=== PATIENT | male | born 1955 | race Caucasian/White ===

== ENCOUNTER 2016-08-20 18:36 | Inpatient (IN) | payer MEDICARE, MEDICAID ==
[2016-08-20] MEDS ORDERED: NS 0.9% 1000 ML* 1,000 ML IV ONE (19:31)
[2016-08-20] MEDS ORDERED: Thiamine IV* 100 MG, Folic Acid IV* 1 MG, Multiple Vitamin IV ADULT* 10 ML in NS 0.9% 1... IV ONE (19:31)
[2016-08-20] MEDS ORDERED: Diltiazem DRIP* 100 MG/100 ML ADDV.BAG IVPB ONE (19:31)
[2016-08-20 19:45] LABS: Hematocrit 43 % (42-52); Hemoglobin 14.9 g/dl (14.0-18.0); Mean Corpuscular HGB Conc 34 g/dl (31-36); Mean Corpuscular Hemoglobin 32 pg (27-31); Mean Corpuscular Volume 92 fL (80-94); Mean Platelet Volume 9 um3 (7.4-10.4); Red Blood Count 4.72 10^6/ul (4.0-5.4); Red Cell Distribution Width 16 % (10.5-15); White Blood Count 4.9 10^3/ul (3.5-10.8)
[2016-08-20] MEDS ORDERED: QUEtiapine TAB* 25 MG PO ONE (19:58)
[2016-08-20 20:00] LABS: ALT 37 U/L (7-52); AST 46 U/L (13-39); Albumin 3.9 g/dL (3.2-5.2); Alkaline Phosphatase 90 U/L (34-104); Anion Gap 12 mmol/L (2-11); BUN/Creatinine Ratio 18.4 (8-20); Blood Urea Nitrogen 16 mg/dL (6-24); CO2 Carbon Dioxide 21 mmol/L (22-32); Calcium 9.3 mg/dL (8.6-10.3); Chloride 89 mmol/L (101-111); EGFR African American 114.7 (>60); EGFR Non-African American 89.2 (>60); Globulin 3.6 g/dL (2-4); Glucose 86 mg/dL (70-100); Sodium 122 mmol/L (133-145); Total Protein 7.5 g/dL (6.4-8.9)
[2016-08-20 20:01] LABS: Troponin I 0.03 ng/mL (<0.04)
[2016-08-20] MEDS ORDERED: Iohexol 300* (CONTRAST) 10 ML SDV IV ONE (20:02)
[2016-08-20 20:18] LABS: Alcohol < 10 mg/dL (<10); Digoxin 0.9 ng/ml (0.8-2.0)
--- NOTE | 2016-08-20 20:25 | HP ---
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 He states that he has been getting more SOB and fatigued for ~1week. He admits to not being compliant with medications recently. Last Sunday he states he was with friends when he got off the couch, walked to flip a light switch, and then collapsed. There was no convulsions, but the next thing he recalled was waking up back on the couch with an abrasion to the L elbow and a sore spot on his head (references the L parietal area). His SOB continued to worsen and yesterday he began developing continuous, non-exertional, non-radiation chest tightness/pressure w/o N/V, palpitations, or light-headedness. He has begun having a dry cough and during coughing fits reports becoming sweaty. ED work up is significant for AFIB RVR rate in the 120-130s, COPD exacerbation, abrasion L elbow, contusion L chest wall w/ ecchymosis, no hematoma/ICH/ bleeding noted on radiologic work up. The chest pressure is separate from the pain associated with the L chest contusion. 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 PSurgHx porcine MVR cataract extraction pacer placement SocHx: 1-2PPD cigarettes with a >50PYHX, FamHx: positive for HTN, HLD ROS: as above, otherwise reviewed and all were negative Constitutional: NAD, normally developed, well-nourished white male older appearing than his stated age vitals: Vital Signs Temp 37.2 C 08/20/16 18:46 Pulse 114 08/20/16 21:06 Resp 18 08/20/16 21:40 BP 112/83 08/20/16 21:06 Pulse Ox 95 08/20/16 21:06 Intake & Output 08/19/16 08/20/16 08/20/16 23:59 11:59 23:59 Weight 72.575 kg HEENM: atraumatic; sclera/conjunctiva: non-icteric/clear; blephara: normal; hearing: clinically intact; oropharynx: clear, hoarse voice, mucosa moist Neck: soft tissue: non-tender; thyroid: normal Pulmonary: clear to auscultation bilaterally, good aeration, no accessory muscle use CV: RR/RR, normal S1S2, no carotid bruit, no jugular venous distention, 2+ B DP/ PT, no edema Abdominal: soft, non-distended, non-tender, no rebound/guarding/rigidity, normoactive bowel sounds, no hepatosplenomegaly or masses, no costovertebral angle tenderness Musculoskeletal: general: grossly intact; gait: stable Integumental: small L postero-lateral ecchymosis L chest, ~1cm abrasion to L elbow medial epicondyle Neurological Moves extremities x4 spontaneously. Psychiatric orientation: AA&O to PPS affect: calm mood: cooperative eye contact: good content: seems mostly reliable responses: timely insight: fair to poor Testing: Lab Results 08/20/16 08/20/16 08/20/16 Range/Units 19:20 19:20 19:20 WBC 4.9 (3.5-10.8) 10^3/ul RBC 4.72 (4.0-5.4) 10^6/ul Hgb 14.9 (14.0-18.0) g/dl Hct 43 (42-52) % MCV 92 (80-94) fL MCH 32 H (27-31) pg MCHC 34 (31-36) g/dl RDW 16 H (10.5-15) % Plt Count 134 L (150-450) 10^3/ul MPV 9 (7.4-10.4) um3 Neut % (Auto) 63.4 (38-83) % Lymph % (Auto) 16.7 L (25-47) % [place] % (Auto) 17.7 H (1-9) % Eos % (Auto) 0.6 (0-6) % Baso % (Auto) 1.6 (0-2) % Absolute Neuts (auto) 3.1 (1.5-7.7) 10^3/ul Absolute Lymphs (auto) 0.8 L (1.0-4.8) 10^3/ul Absolute Monos (auto) 0.9 H (0-0.8) 10^3/ul Absolute Eos (auto) 0 (0-0.6) 10^3/ul Absolute Basos (auto) 0.1 (0-0.2) 10^3/ul Absolute Nucleated RBC 0.01 10^3/ul Nucleated RBC % 0.2 INR (Anticoag Therapy) (0.89-1.11) Sodium 122 L (133-145) mmol/L Potassium 4.0 (3.5-5.0) mmol/L Chloride 89 L (101-111) mmol/L Carbon Dioxide 21 L (22-32) mmol/L Anion Gap 12 H (2-11) mmol/L BUN 16 (6-24) mg/dL Creatinine 0.87 (0.67-1.17) mg/dL Est GFR ( Amer) 114.7 (>60) Est GFR (Non-Af Amer) 89.2 (>60) BUN/Creatinine Ratio 18.4 (8-20) Glucose 86 (70-100) mg/dL Lactic Acid 1.1 (0.5-2.0) mmol/L Calcium 9.3 (8.6-10.3) mg/dL Total Bilirubin 1.00 (0.2-1.0) mg/dL AST 46 H (13-39) U/L ALT 37 (7-52) U/L Alkaline Phosphatase 90 (34-104) U/L Troponin I 0.03 (<0.04) ng/mL B-Natriuretic Peptide ( - 100) pg/mL Total Protein 7.5 (6.4-8.9) g/dL Albumin 3.9 (3.2-5.2) g/dL Globulin 3.6 (2-4) g/dL Albumin/Globulin Ratio 1.1 (1-3) Digoxin 0.9 (0.8-2.0) ng/ml Serum Alcohol < 10 (<10) mg/dL 02/12/17 02/12/17 Range/Units 19:20 19:20 WBC (3.5-10.8) 10^3/ul RBC (4.0-5.4) 10^6/ul Hgb (14.0-18.0) g/dl Hct (42-52) % MCV (80-94) fL MCH (27-31) pg MCHC (31-36) g/dl RDW (10.5-15) % Plt Count (150-450) 10^3/ul MPV (7.4-10.4) um3 Neut % (Auto) (38-83) % Lymph % (Auto) (25-47) % [place] % (Auto) (1-9) % Eos % (Auto) (0-6) % Baso % (Auto) (0-2) % Absolute Neuts (auto) (1.5-7.7) 10^3/ul Absolute Lymphs (auto) (1.0-4.8) 10^3/ul Absolute Monos (auto) (0-0.8) 10^3/ul Absolute Eos (auto) (0-0.6) 10^3/ul Absolute Basos (auto) (0-0.2) 10^3/ul Absolute Nucleated RBC 10^3/ul Nucleated RBC % INR (Anticoag Therapy) 0.91 (0.89-1.11) Sodium (133-145) mmol/L Potassium (3.5-5.0) mmol/L Chloride (101-111) mmol/L Carbon Dioxide (22-32) mmol/L Anion Gap (2-11) mmol/L BUN (6-24) mg/dL Creatinine (0.67-1.17) mg/dL Est GFR ( Amer) (>60) Est GFR (Non-Af Amer) (>60) BUN/Creatinine Ratio (8-20) Glucose (70-100) mg/dL Lactic Acid (0.5-2.0) mmol/L Calcium (8.6-10.3) mg/dL Total Bilirubin (0.2-1.0) mg/dL AST (13-39) U/L ALT (7-52) U/L Alkaline Phosphatase (34-104) U/L Troponin I (<0.04) ng/mL B-Natriuretic Peptide 347 H ( - 100) pg/mL Total Protein (6.4-8.9) g/dL Albumin (3.2-5.2) g/dL Globulin (2-4) g/dL Albumin/Globulin Ratio (1-3) Digoxin (0.8-2.0) ng/ml Serum Alcohol (<10) mg/dL ECG, personally reviewed: AFIB rate 131, no ischemia, similar to ECG dated 02/23 CXR, personally reviewed: IMPRESSION: Peribronchial cuffing could be seen in the setting of bronchitis or other inflammatory lung disease. Otherwise there is no radiographic evidence of acute cardiopulmonary abnormality. CT brain WO, personally reviewed: The ventricles, cisterns and sulci are within normal limits. No significant focal abnormality or mass effect is seen. The mo-white differentiation is adequately maintained. There is no evidence for intracranial hemorrhage. No significant bony abnormality is present. The mastoid air cells are appropriately aerated. There is moderate mucosal thickening the bilateral ethmoid air cells. There is layering fluid density in the dependent right maxillary sinus. CT C-spine WO, personally reviewed: IMPRESSION: 1. No calvarial fracture or acute intracranial hemorrhage. 2. Mild degenerative changes of the cervical spine without acute fracture or dislocation. CT chest/abd/pel, personally reviewed: IMPRESSION: 1. No acute traumatic injury including bony fracture or hemorrhage identified. 2. At the left lower lobe there is a 1.3 cm pulmonary nodule. If prior CT imaging of the chest can be made available direct comparison can be made to comment on chronicity. Otherwise, considering the patient's apparent smoking history, possibility of neoplasm must BE considered. 3. Advanced calcified atherosclerosis of the lower abdominal aorta and bilateral common iliac arteries. There appears to be calcified occlusion of the right common iliac artery. Please correlate to signs and symptoms of pelvic and lower extremity arterial insufficiency. 4. Additional chronic, degenerative and iatrogenic findings described in the body of the report. Additionally, an ~1.3cm calcified nodule at the L diaphragm was discussed w/ radiology who felt it was of a benign etiology. XRY L elbow, personally reviewed: IMPRESSION: Normal radiograph of the left elbow. If the patient's symptoms persist further follow-up imaging is recommended. ECHO 01/2016: Conclusions: Mild concentric left ventricular hypertrophy is observed. The estimated ejection fraction is 55-60%. The right ventricular global systolic function is normal. A bioprosthetic mitral valve is present with good function, trace AI, mean gradient 5.8 mmHg (# 27 [employer] porcine). There is trace tricuspid regurgitation. The patient was in atrial fibrillation throughout the study and study limited but adequate for evaluation. Compared with pre MVR echo of 12/09/15, severe MR has resolved, EF has improved, previously 45-50%. Impression: 61M presenting with COPD exacerbation & AFIB RVR after fall on rivaroxaban related to seizure vs syncope DIAGNOSIS & PLAN Primary COPD exacerbation : albuterol nebs : mometasone/formoterol : tiotropium : IV methylprednisolone : guaifenesin : PO azithromycin : incentive spirometry : supplemental oxygen : smoking cessation advised, moderately motivated : supportive care AFIB RVR : likely at least partially compensatory to his COPD : diltiazem IV for rate control to <120 : continue rivaroxaban chest pain r/o ACS : telemetry : trend troponin : given low suspicion for ACS, recent fall on rivaroxaban, & mild thrombocytopenia will hold full dose aspirin and continue low dose : repeat ECG in AM : if these are negative, would defer further cardiac evaluation to his PCP as an outpatient syncope w/ fall, suspect possibly 2nd seizure : telemetry : patient admits to poor adherence to medications : seizure precautions : continue levetiracetam at 500mg PO BID until reconciled : contine valproic acid once reconciled in AM : IV lorazepam 2mg PRN seizure : check levetiracetam & valproic acid levels : consider neurology consult in AM for further seizures LLL 1.3cm lung nodule : given smoking HX concerning for neoplasm : will need close outpatient f/u, consider PCP to consider outpatient PET/CT Secondary hypoNatremia : chronic, stable : IVFs : monitor periodically bipolar disorder : continue medications once reconciled depression : continue medications once reconciled BLE neuropathy : review medications once reconciled PAOD : continue statin once reconciled : low fat diet Admission Rational: inpatient for management of COPD exacerbation and AFIB/RVR not anticipated to be adequately controlled w/i 48h to allow for discharge. DVTp: rivaroxaban Code Status: full
[2016-08-20] MEDS ORDERED: LORazepam INJ* 2 MG/ML 1 ML VIAL IV PUSH ONE ×2 (20:26)
--- NOTE | 2016-08-20 20:47 | RAD ---
indication: Fall down stairs in patient taking xarelto COMPARISON: CT brain dated February 01, [address] scan of the brain and c-spine was performed without intravenous contrast enhancement. Contiguous axial sections were obtained from the lung apices through the vertex. BRAIN: The ventricles, cisterns and sulci are within normal limits. No significant focal abnormality or mass effect is seen. The mo-white differentiation is adequately maintained. There is no evidence for intracranial hemorrhage. No significant bony abnormality is present. The mastoid air cells are appropriately aerated. There is moderate mucosal thickening the bilateral ethmoid air cells. There is layering fluid density in the dependent right maxillary sinus. C-SPINE: On the sagittal view images the vertebral bodies and facet joints are appropriately aligned. There is no evidence of facet dislocation. Degenerative changes of the cervical spine include loss of intervertebral disc height and mild marginal osteophyte formation most severely affecting C5-C7. There is no prevertebral soft tissue swelling or fluid collection. There is no hyperdense material in the cervical canal to indicate hemorrhage. The visualized musculature and soft tissues are normal. There is no gross lymphadenopathy visualized. Coarse calcification is noted the bilateral carotid bulbs. The visualized portion of the lung apices are clear. IMPRESSION: 1. No calvarial fracture or acute intracranial hemorrhage. 2. Mild degenerative changes of the cervical spine without acute fracture or dislocation.
--- NOTE | 2016-08-20 20:56 | RAD ---
INDICATION: Chest pain COMPARISON: Most recent comparison chest x-rays dated April 18, 2016 TECHNIQUE: Single AP portable view of the chest was obtained. FINDINGS: Image quality is compromised due to the relative inferiority of a portable chest x-ray. Stable postoperative findings include left upper chest cardiac pacemaker with 2 leads overlying the heart, a prostatic aortic valve and sternotomy wires. The heart and mediastinum exhibit normal size and contour. Again seen is the appearance of hyperaeration. There is moderate peribronchial cuffing. Otherwise the lungs are grossly clear. There is no evidence of a large pleural effusion. Visualized bones are normal for the patient's age. IMPRESSION: Peribronchial cuffing could be seen in the setting of bronchitis or other inflammatory lung disease. Otherwise there is no radiographic evidence of acute cardiopulmonary abnormality.
[2016-08-20] MEDS: Mometasone/Formoter 200/5 MDI INH SCH (21:00)
--- NOTE | 2016-08-20 21:08 | RAD ---
INDICATION: Left flank pain and bruising after a fall. Patient takes Xarelto. COMPARISON: None. TECHNIQUE: Multidetector CT images were obtained from the lung apices to the ischial tuberosities with 97 mL Omnipaque 300IV contrast. CHEST: The lungs exhibit diffuse centrilobular emphysematous changes. At the medial aspect of the left lower lobe there is a 1.3 cm pulmonary nodule. Also at the left lung base there is a partially calcified pulmonary nodule of no clinical concern. There are no significant pleural effusions bilaterally. There is a left upper chest cardiac pacemaker with 2 leads in the heart, sternotomy wires and a prostatic mitral valve. There is coarse atherosclerotic calcification at the arch of the aorta and the left greater than right common carotid arteries. Top normal mediastinal lymph nodes include a left of midline paratracheal lymph node measuring 9 mm in short axis diameter and a preaortic lymph node measuring 8 mm in short axis diameter. ABDOMEN \T\ PELVIS: The liver, spleen, pancreas and adrenal glands are grossly normal in appearance. The gallbladder is normal. The kidneys are normal in appearance without focal mass, calcification or signs of hydronephrosis. The small and large bowel are not distended. The appendix is identified in the right lower quadrant (image 58 of 105). Rectosigmoid diverticula are seen but none exhibit acute inflammatory change. There is no gross retroperitoneal or mesenteric lymphadenopathy. The pelvic viscera is normal in appearance. Coarse calcification in the infrarenal abdominal aorta becomes more severe at the bilateral common iliac arteries with likely obliteration of the lumen on the right. The external iliac arteries are diminutive and there is coarse eccentric calcification at the bilateral common femoral arteries. Multilevel degenerative changes of the thoracic and lumbar spine include loss of intervertebral disc height. No acute bony fractures are identified. There are no sinister bone lesions. IMPRESSION: 1. No acute traumatic injury including bony fracture or hemorrhage identified. 2. At the left lower lobe there is a 1.3 cm pulmonary nodule. If prior CT imaging of the chest can be made available direct comparison can be made to comment on chronicity. Otherwise, considering the patient's apparent smoking history, possibility of neoplasm must BE considered. 3. Advanced calcified atherosclerosis of the lower abdominal aorta and bilateral common iliac arteries. There appears to be calcified occlusion of the right common iliac artery. Please correlate to signs and symptoms of pelvic and lower extremity arterial insufficiency. 4. Additional chronic, degenerative and iatrogenic findings described in the body of the report.
--- NOTE | 2016-08-20 21:10 | RAD ---
INDICATION: Left elbow pain and bruising for days after injury COMPARISON: None. TECHNIQUE: 4 views left elbow. REPORT: The visualized bones of the left elbow are well corticated and properly aligned. There is no radiographically apparent fracture or dislocation. There is no radiographic evidence of pathologic joint effusion. IMPRESSION: Normal radiograph of the left elbow. If the patient's symptoms persist further follow-up imaging is recommended.
[2016-08-20] MEDS ORDERED: Acetaminophen TAB* 325 MG PO PRN (22:41)
[2016-08-20] MEDS ORDERED: Nicotine Inhaler* 10 MG AMP INH PRN (22:43)
[2016-08-20] MEDS ORDERED: Melatonin (NF) 3 MG TAB PO PRN (22:43)
[2016-08-20] MEDS ORDERED: Ondansetron INJ* 2 MG/ML VIAL IV PRN (22:43)
[2016-08-20] MEDS ORDERED: methylPREDNISolone 125 MG* 2 ML VIAL IV ONE (22:43)
[2016-08-20] MEDS ORDERED: Aspirin EC Low Dose* 81 MG TAB.EC PO ONE (22:45)
[2016-08-20] MEDS ORDERED: Diltiazem DRIP* 100 MG/100 ML ADDV.BAG IVPB SCH (23:00)
[2016-08-20] MEDS ORDERED: LORazepam INJ* 2 MG/ML 1 ML VIAL IV PRN (23:04)
[2016-08-20 23:20] LABS: Phenytoin < 2.5 mcg/mL (10-20)
[2016-08-20] MEDS ORDERED: Diltiazem IV* 5 MG/ML 5 ML VIAL (for loading dose/IV Push) (25 MG) IV SLOW PU SCH (23:45)
--- NOTE | 2016-08-21 00:02 | ED ---
I, Oh,Sotungqueeniekings, scribed for Rl Cortez MD on 08/20/16 at 1945 . HPI Chest Pain - HPI Summary HPI Summary: This 61 y/o male presents to ED for acute chest tightness since yesterday. Pt also expresses concern for increased frequency of his known seizures and recent fall down the stairs 5 days ago, complaining of bruises on LUE elbow. He denies any fever. He also reports that he recently has been irregular with his drinking and eating and noncompliant with his daily meds, which includes Keppra , Xarelto, digoxin, Cardizem, depakote, Zoloft, and gabapentin. Primary care involves Dr. Reich and Dr. Horton. He lives alone. Prior records reviewed. Admission at January 2016. presents with convulsion and jerking episodes. copmlicated hx of bipolar d/o, EtOH abuse, SIADH seizure d/o, - History of Current Complaint Chief Complaint: EDChestPainROMI Time Seen by Provider: 08/20/16 19:02 Hx Obtained From: Patient, Medical Records Onset/Duration: Started Days Ago, Atraumatic, Still Present Timing: Constant Chest Pain Location: Diffuse Chest Pain Radiates: No Character: Tightness Aggravating Factor(s): Nothing Alleviating Factor(s): Nothing Associated Signs and Symptoms: Positive: Chest Pain - Additional Pertinent History Primary Care Physician: [id number] - Allergy/Home Medications Allergies/Adverse Reactions: Allergies Allergy/AdvReac Type Severity Reaction Status Date / Time No Known Allergies Allergy Verified 02/01/16 08:19 PMH/Surg Hx/FS Hx/Imm Hx Endocrine/Hematology History: Reports: Hx Anticoagulant Therapy Denies: Hx Diabetes, Hx Thyroid Disease Cardiovascular History: Reports: Hx Hypertension, Hx Pacemaker/ICD, Hx Peripheral Vascular Disease, Hx Valvular Heart Disease - Recent valve replacement surgery, Other Cardiovascular Problems/Disorders - Hx Atrial Fibrillation and was treatment with Warfarin which has been d/c'd Respiratory History: Reports: Hx Chronic Bronchitis, Hx Chronic Obstructive Pulmonary Disease (COPD), Other Respiratory Problems/Disorders - poss aspiration Denies: Hx Asthma History: Denies: Hx Renal Disease Musculoskeletal History: Denies: Hx Arthritis, Hx Osteoporosis Sensory History: Reports: Hx Cataracts, Hx Contacts or Glasses Opthamlomology History: Reports: Hx Cataracts, Hx Contacts or Glasses Neurological History: Reports: Hx Seizures, Other Neuro Impairments/Disorders - PERIPHERAL NEUROPATHY Denies: Hx Dementia Psychiatric History: Reports: Hx Anxiety, Hx Eating Disorder, Hx Depression, Hx Panic Disorder, Hx Post Traumatic Stress Disorder, Hx Inpatient Treatment, Hx Community Mental Health Tx, Hx Bipolar Disorder, Hx Suicide Attempt, Hx Substance Abuse, Other Psychiatric Issues/Disorders - has had ECT treatment Denies: Hx Schizophrenia, Hx of Violent Episodes Against Others - Surgical History Surgery Procedure, Year, and Place: cataracts removed. Hx Hernia Repair. AORTIC VALVE REPLACEMENT. PACEMAKER - Immunization History Date of Tetanus Vaccine: PT STATES UNSURE Date of Influenza Vaccine: NONE Infectious Disease History: No Infectious Disease History: Reports: Hx Tuberculosis - hx of inactive TB Denies: Hx Clostridium Difficile, Hx Hepatitis, Hx Human Immunodeficiency Virus (HIV), Hx of Known/Suspected MRSA, Hx Shingles, Hx Known/Suspected VRE, Hx Known/Suspected VRSA, History Other Infectious Disease, Traveled Outside the [place] in Last 30 Days - Family History Known Family History: Positive: Other - Mother -- depression, Father -- EtOH abuse - Social History Lives: Alone Alcohol Use: Daily Alcohol Amount: REPORTS BEER WITH DINNER TONIGHT Hx Substance Use: Yes Substance Use Type: Reports: Marijuana Substance Use Comment - Amount & Last Used: last weekend Hx Tobacco Use: Yes Smoking Status (MU): Heavy Every Day Tobacco Smoker Type: Cigarettes Amount Used/How Often: 1/2 PPD Length of Time of Smoking/Using Tobacco: 40 YRS Have You Smoked in the Last Year: Yes Review of Systems Negative: Fever Positive: Chest Pain Positive: Bruising - LUE elbow Neurological: Other - negative for dizziness Negative: Anxious, Depressed All Other Systems Reviewed And Are Negative: Yes Physical Exam - Summary Physical Exam Summary: General: Comfortable, pleasant, alert HEENT: Moist mucosa Neck: soft, supple, no adenopathy, no edema. No JVD. Heart: S1, S2, HR of 128. Rates regular. no murmurs, rubs, or gallops Lungs: Clear to auscultation, breathing comfortable, Rales on the left. Skin: Bruising left elbow, left flank, and left lateral ribs. Abdominal: Soft, flat, nontender Extremities: FROM at left elbow Positive tenderness at LUE lateral and medial epicondyle. Neuro: Alert and oriented x 3 Psych: Logical, coherent Triage Information Reviewed: Yes Vital Signs On Initial Exam: Initial Vitals Temp Pulse Resp BP Pulse Ox 98.9 F 123 20 142/103 100 08/20/16 18:46 08/20/16 18:46 08/20/16 18:46 08/20/16 18:46 08/20/16 18:46 Vital Signs Reviewed: Yes Diagnostics - Vital Signs Vital Signs Temp Pulse Resp BP Pulse Ox 08/20/16 18:46 98.9 F 123 20 142/103 100 - Laboratory Lab Results: Lab Results 08/20/16 08/20/16 08/20/16 Range/Units 19:20 19:20 19:20 WBC 4.9 (3.5-10.8) 10^3/ul RBC 4.72 (4.0-5.4) 10^6/ul Hgb 14.9 (14.0-18.0) g/dl Hct 43 (42-52) % MCV 92 (80-94) fL MCH 32 H (27-31) pg MCHC 34 (31-36) g/dl RDW 16 H (10.5-15) % Plt Count 134 L (150-450) 10^3/ul MPV 9 (7.4-10.4) um3 Neut % (Auto) 63.4 (38-83) % Lymph % (Auto) 16.7 L (25-47) % Evangeline % (Auto) 17.7 H (1-9) % Eos % (Auto) 0.6 (0-6) % Baso % (Auto) 1.6 (0-2) % Absolute Neuts (auto) 3.1 (1.5-7.7) 10^3/ul Absolute Lymphs (auto) 0.8 L (1.0-4.8) 10^3/ul Absolute Monos (auto) 0.9 H (0-0.8) 10^3/ul Absolute Eos (auto) 0 (0-0.6) 10^3/ul Absolute Basos (auto) 0.1 (0-0.2) 10^3/ul Absolute Nucleated RBC 0.01 10^3/ul Nucleated RBC % 0.2 INR (Anticoag Therapy) (0.89-1.11) Sodium 122 L (133-145) mmol/L Potassium 4.0 (3.5-5.0) mmol/L Chloride 89 L (101-111) mmol/L Carbon Dioxide 21 L (22-32) mmol/L Anion Gap 12 H (2-11) mmol/L BUN 16 (6-24) mg/dL Creatinine 0.87 (0.67-1.17) mg/dL Est GFR ( Amer) 114.7 (>60) Est GFR (Non-Af Amer) 89.2 (>60) BUN/Creatinine Ratio 18.4 (8-20) Glucose 86 (70-100) mg/dL Lactic Acid 1.1 (0.5-2.0) mmol/L Calcium 9.3 (8.6-10.3) mg/dL Total Bilirubin 1.00 (0.2-1.0) mg/dL AST 46 H (13-39) U/L ALT 37 (7-52) U/L Alkaline Phosphatase 90 (34-104) U/L Troponin I 0.03 (<0.04) ng/mL B-Natriuretic Peptide ( - 100) pg/mL Total Protein 7.5 (6.4-8.9) g/dL Albumin 3.9 (3.2-5.2) g/dL Globulin 3.6 (2-4) g/dL Albumin/Globulin Ratio 1.1 (1-3) Digoxin 0.9 (0.8-2.0) ng/ml Phenytoin < 2.5 L (10-20) mcg/mL Valproic Acid 17.0 L (50-100) mcg/mL Serum Alcohol < 10 (<10) mg/dL 08/20/16 08/20/16 Range/Units 19:20 19:20 WBC (3.5-10.8) 10^3/ul RBC (4.0-5.4) 10^6/ul Hgb (14.0-18.0) g/dl Hct (42-52) % MCV (80-94) fL MCH (27-31) pg MCHC (31-36) g/dl RDW (10.5-15) % Plt Count (150-450) 10^3/ul MPV (7.4-10.4) um3 Neut % (Auto) (38-83) % Lymph % (Auto) (25-47) % Evangeline % (Auto) (1-9) % Eos % (Auto) (0-6) % Baso % (Auto) (0-2) % Absolute Neuts (auto) (1.5-7.7) 10^3/ul Absolute Lymphs (auto) (1.0-4.8) 10^3/ul Absolute Monos (auto) (0-0.8) 10^3/ul Absolute Eos (auto) (0-0.6) 10^3/ul Absolute Basos (auto) (0-0.2) 10^3/ul Absolute Nucleated RBC 10^3/ul Nucleated RBC % INR (Anticoag Therapy) 0.91 (0.89-1.11) Sodium (133-145) mmol/L Potassium (3.5-5.0) mmol/L Chloride (101-111) mmol/L Carbon Dioxide (22-32) mmol/L Anion Gap (2-11) mmol/L BUN (6-24) mg/dL Creatinine (0.67-1.17) mg/dL Est GFR ( Amer) (>60) Est GFR (Non-Af Amer) (>60) BUN/Creatinine Ratio (8-20) Glucose (70-100) mg/dL Lactic Acid (0.5-2.0) mmol/L Calcium (8.6-10.3) mg/dL Total Bilirubin (0.2-1.0) mg/dL AST (13-39) U/L ALT (7-52) U/L Alkaline Phosphatase (34-104) U/L Troponin I (<0.04) ng/mL B-Natriuretic Peptide 347 H ( - 100) pg/mL Total Protein (6.4-8.9) g/dL Albumin (3.2-5.2) g/dL Globulin (2-4) g/dL Albumin/Globulin Ratio (1-3) Digoxin (0.8-2.0) ng/ml Phenytoin (10-20) mcg/mL Valproic Acid (50-100) mcg/mL Serum Alcohol (<10) mg/dL Result Diagrams: 08/20/16 19:20 08/20/16 19:20 Lab Statement: Any lab studies that have been ordered have been reviewed, and results considered in the medical decision making process. - Radiology CXR Xray Interpretation: Positive (See Comments) - Peribronchial cuffing could be seen in the setting of bronchitis or other inflammatory lung disease. Otherwise there is no radiographic evidence of acute cardiopulmonary abnormality. Radiology Interpretation Completed By: Radiologist Left Elbow Xray Interpretation: No Acute Changes Radiology Interpretation Completed By: Radiologist - CT CT Brain CT Interpretation: No Acute Changes - 1. No calvarial fracture or acute intracranial hemorrhage. 2. Mild degenerative changes of the cervical spine without acute fracture or dislocation. CT Interpretation Completed By: Radiologist C-spine CT Interpretation: No Acute Changes - 1. No calvarial fracture or acute intracranial hemorrhage. 2. Mild degenerative changes of the cervical spine without acute fracture or dislocation. CT Interpretation Completed By: Radiologist Ab/P/Chest CT Interpretation: Positive (See Comments) - 1. No acute traumatic injury including bony fracture or hemorrhage identified. 2. At the left lower lobe there is a 1.3 cm pulmonary nodule. If prior CT imaging of the chest can be made available direct comparison can be made to comment on chronicity. Otherwise , considering the patient's apparent smoking history, possibility of neoplasm must BE considered. 3. Advanced calcified atherosclerosis of the lower abdominal aorta and bilateral common iliac arteries. There appears to be calcified occlusion of the right common iliac artery. Please correlate to signs and symptoms of pelvic and lower extremity arterial insufficiency. 4. Additional chronic, degenerative and iatrogenic findings described in the body of the report. CT Interpretation Completed By: Radiologist - EKG 1853 Cardiac Rate: Tachycardia - 131 bpm EKG Rhythm: Atrial Fibrillation Chest Pain Course/Dx - Course Assessment/Plan: He has multiple complaints of concerns, which includes tachycardia, recent fall, recent syncope, concerns for possible seizures, and noncompliance to meds. On arrival he complains of bruising of left elbow and left flank. He is on blood thinner. At this point, we are aggressively managing his multiple complaints, but it is prudent to admit this pt. Dr. Macias accepts the pt. CT imaging results are pending. No clinical evidence of sepsis, heart attack, nu, PTX, or obvious servere internal bleeding. - Chest Pain Differential Diagnosis/HQI/PQRI: Acute [place], Angina, Lower Respiratory Infection, Pulmonary Edema, Pulmonary Embolism - Diagnoses Provider Diagnoses: Syncope and collapse, Atrial fibrillation with rapid ventricular response - Provider Notifications Discussed Care Of Patient With: Dr. Macias (Hospitalist) at 2024 PM Time Discussed With Above Provider: 20:25 Instructed by Provider To: Admit As Inpatient - Critical Care Time Critical Care Time: 30-74 min - 60 minutes Discharge - Discharge Plan Condition: Stable Disposition: ADMITTED TO [facility] The documentation as recorded by the Tung fajardo Soohyun accurately reflects the service I personally performed and the decisions made by , Rl Cortez MD.
[2016-08-21] MEDS: Albuterol 2.5 MG/3 ML NEB.SOL* (0.083%) INH SCH ×4 (02:05→20:09)
[2016-08-21] MEDS: NS 0.9% 1000 ML* 1,000 ML IV SCH ×2 (02:29→15:34)
[2016-08-21] MEDS: levETIRAcetam TAB* 500 MG PO SCH ×2 (02:38→08:51)
[2016-08-21] MEDS: Azithromycin TAB* 250 MG PO SCH ×2 (02:38→20:53)
[2016-08-21] MEDS: Omeprazole CAP* 20 MG PO SCH (04:57)
[2016-08-21 06:18] LABS: Hematocrit 43 % (42-52); Hemoglobin 14.5 g/dl (14.0-18.0); Mean Corpuscular HGB Conc 34 g/dl (31-36); Mean Corpuscular Hemoglobin 31 pg (27-31); Mean Corpuscular Volume 92 fL (80-94); Mean Platelet Volume 9 um3 (7.4-10.4); Red Blood Count 4.64 10^6/ul (4.0-5.4); Red Cell Distribution Width 16 % (10.5-15); White Blood Count 3.3 10^3/ul (3.5-10.8)
[2016-08-21 06:24] LABS: Comments Flag Yes
[2016-08-21 06:30] LABS: BUN/Creatinine Ratio 19.1 (8-20); Calcium 8.7 mg/dL (8.6-10.3); EGFR African American 152.5 (>60); EGFR Non-African American 118.6 (>60); HDL Cholesterol 77.7 mg/dL; Potassium 3.9 mmol/L (3.5-5.0)
[2016-08-21 06:33] LABS: Troponin I 0.01 ng/mL (<0.04)
[2016-08-21 07:16] LABS: Benzodiazepine Urine Screen None Detected (None Detect)
[2016-08-21] MEDS: Mometasone/Formoter 200/5 MDI INH SCH ×2 (07:47→20:20)
[2016-08-21] MEDS: Rivaroxaban TAB(*) 20 MG TAB PO SCH (08:51)
[2016-08-21] MEDS: Docusate CAP* 100 MG PO SCH ×2 (08:51→20:54)
[2016-08-21] MEDS: guaiFENesin ER TAB 600 MG PO SCH ×2 (08:51→20:56)
[2016-08-21] MEDS ORDERED: Aspirin EC Low Dose* 81 MG TAB.EC PO SCH (09:00)
[2016-08-21] MEDS ORDERED: methylPREDNISolone SOD 40 MG* 1 ML VIAL IV SCH (09:00)
[2016-08-21] MEDS ORDERED: QUEtiapine TAB* 100 MG PO PRN (15:08)
[2016-08-21] MEDS ORDERED: PROCHLORPERAZINE INJ 5 MG/ML 2 ML VIAL IV PRN (15:09)
--- NOTE | 2016-08-21 15:22 | PN ---
Subjective Date of Service: 08/21/16 Interval History: Patient seen and examined at bedside. He is very sleepy, having received lorazepam overnight. He is arousable though. When asked about chest pain, he states, "My chest never hurt." He is laying flat in bed and denies SOB, though he does report frequent cough. He denies fever/chills, abd pain, n/v. He states , "I just want to sleep." Nursing staff denies any seizure activity noted overnight or this morning. Telemetry: atrial fibrillation, PVCs, 80s-90s Family History: Unchanged from Admission Social History: Unchanged from Admission Past Medical History: Unchanged from Admission Objective Active Medications: Acetaminophen (Tylenol Tab*) 650 mg PO Q6H PRN PRN Reason: FEVER/PAIN Albuterol (Ventolin 2.5 Mg/3 Ml Neb.[place]*) 2.5 mg INH Q2H PRN PRN Reason: SOB/WHEEZING Albuterol (Ventolin 2.5 Mg/3 Ml Neb.[place]*) 2.5 mg INH [id number] AWAKE [facility] Last Admin: 08/21/16 12:43 Dose: 2.5 mg Aspirin (Aspirin Ec Low Dose*) 81 mg PO DAILY [facility] Azithromycin (Zithromax Tab*) 500 mg PO 1999 [facility] Last Admin: 08/21/16 02:38 Dose: 500 mg Digoxin (Lanoxin Tab*) 0.25 mg PO DAILY [facility] Diltiazem HCl (Cardizem Cd Cap*) 120 mg PO DAILY [facility] Diltiazem HCl (Cardizem Tab*) 30 mg PO Q6HR [facility] Stop: 08/22/16 00:01 Divalproex Sodium (Depakote Er Tab(*)) 1,000 mg PO DAILY [facility] Docusate Sodium (Colace Cap*) 200 mg PO BID [facility] Last Admin: 08/21/16 08:51 Dose: 200 mg Gabapentin (Neurontin Cap(*)) 600 mg PO BID [facility] Guaifenesin (Mucinex*) 1,200 mg PO BID [facility] Last Admin: 08/21/16 08:51 Dose: 1,200 mg Sodium Chloride (Ns 0.9% 1000 Ml*) 1,000 mls @ 75 mls/hr IV PER RATE [facility] Last Admin: 08/21/16 02:29 Dose: 75 mls/hr Levetiracetam (Keppra Tab*) 500 mg PO DAILY [facility] Lorazepam (Ativan Inj*) 2 mg IV Q4H PRN PRN Reason: SEIZURES Last Admin: 08/21/16 03:09 Dose: 2 mg Melatonin (Melatonin (Nf)) 3 mg PO BEDTIME PRN; Protocol PRN Reason: Sleep Metoprolol Tartrate (Lopressor Tab*) 25 mg PO BID [facility] Mometasone Furoate/Formoterol Fumar (Dulera 200/5 Mdi*) 2 puff INH BID [facility] Last Admin: 08/21/16 07:47 Dose: Not Given Nicotine (Nicotine Inhaler*) 10 mg INH Q2H PRN PRN Reason: CRAVING Omeprazole (Prilosec Cap*) 20 mg PO DAILY@0600 [facility] Last Admin: 08/21/16 04:57 Dose: 20 mg Prednisone (Deltasone Tab*) 40 mg PO DAILY [facility] Prochlorperazine Edisylate (Compazine Inj*) 5 mg IV Q6H PRN PRN Reason: NAUSEA/VOMITING Quetiapine Fumarate (Seroquel Tab*) 200 mg PO BEDTIME PRN PRN Reason: AGITATION Rivaroxaban (Xarelto(*)) 20 mg PO DAILY [facility] Ropinirole HCl (Requip Tab*) 0.5 mg PO BEDTIME [facility] Sertraline HCl (Zoloft*) 100 mg PO DAILY [facility] Vital Signs 08/20/16 08/20/16 08/20/16 20:57 21:00 21:06 Temperature Pulse Rate 114 Respiratory 22 24 29 Rate Blood Pressure 112/83 (mmHg) O2 Sat by Pulse 95 Oximetry 08/20/16 08/20/16 08/20/16 21:40 22:30 22:50 Temperature 98.2 F Pulse Rate 96 101 Respiratory 18 22 Rate Blood Pressure 139/72 125/75 (mmHg) O2 Sat by Pulse 95 Oximetry 08/20/16 08/20/16 08/20/16 23:05 23:25 23:35 Temperature 98.0 F Pulse Rate 91 97 Respiratory 28 Rate Blood Pressure 130/76 135/89 (mmHg) O2 Sat by Pulse Oximetry 08/20/16 08/21/16 08/21/16 23:40 00:10 00:40 Temperature Pulse Rate 98 91 93 Respiratory Rate Blood Pressure 152/90 148/90 125/84 (mmHg) O2 Sat by Pulse Oximetry 08/21/16 08/21/16 08/21/16 01:10 01:40 02:07 Temperature Pulse Rate 98 91 Respiratory Rate Blood Pressure 125/84 153/93 (mmHg) O2 Sat by Pulse 93 Oximetry 08/21/16 08/21/16 08/21/16 02:40 03:09 03:40 Temperature 97.6 F Pulse Rate 88 95 Respiratory 24 Rate Blood Pressure 125/79 125/79 (mmHg) O2 Sat by Pulse Oximetry 08/21/16 08/21/16 08/21/16 04:09 04:40 05:40 Temperature Pulse Rate 97 96 Respiratory 22 Rate Blood Pressure 130/75 137/86 (mmHg) O2 Sat by Pulse Oximetry 08/21/16 08/21/16 08/21/16 07:45 07:55 08:00 Temperature 96.4 F Pulse Rate 104 95 Respiratory 18 16 Rate Blood Pressure (mmHg) O2 Sat by Pulse 100 94 Oximetry 08/21/16 08/21/16 08/21/16 08:26 11:20 12:44 Temperature 97.0 F Pulse Rate 81 95 Respiratory 18 Rate Blood Pressure (mmHg) O2 Sat by Pulse 97 95 Oximetry Oxygen Devices in Use Now: None Appearance: Male patient, lying in bed, drowsy, in NAD Eyes: PERRLA Ears/Nose/Mouth/Throat: Clear Oropharnyx, Mucous Membranes Moist Neck: NL Appearance and Movements; NL JVP Respiratory: Symmetrical Chest Expansion and Respiratory Effort, Clear to Auscultation - coarse breath sounds, scattered rhonchi Cardiovascular: - - irregularly irregular rate/rhythm Abdominal: NL Sounds; No Tenderness; No Distention Extremities: No Edema Skin: - - ecchymosis to left chest, left elbow abrasion Neurological: - - drowsy but oriented x 3 Lines/Tubes/Other Access: Clean, Dry and Intact Peripheral IV Nutrition: Taking PO's Result Diagrams: 08/21/16 05:59 08/21/16 05:59 Additional Lab and Data: Lab Results 08/20/16 08/20/16 08/20/16 Range/Units 19:20 19:20 19:20 WBC 4.9 (3.5-10.8) 10^3/ul RBC 4.72 (4.0-5.4) 10^6/ul Hgb 14.9 (14.0-18.0) g/dl Hct 43 (42-52) % MCV 92 (80-94) fL MCH 32 H (27-31) pg MCHC 34 (31-36) g/dl RDW 16 H (10.5-15) % Plt Count 134 L (150-450) 10^3/ul MPV 9 (7.4-10.4) um3 Neut % (Auto) 63.4 (38-83) % Lymph % (Auto) 16.7 L (25-47) % [place]lin % (Auto) 17.7 H (1-9) % Eos % (Auto) 0.6 (0-6) % Baso % (Auto) 1.6 (0-2) % Absolute Neuts (auto) 3.1 (1.5-7.7) 10^3/ul Absolute Lymphs (auto) 0.8 L (1.0-4.8) 10^3/ul Absolute Monos (auto) 0.9 H (0-0.8) 10^3/ul Absolute Eos (auto) 0 (0-0.6) 10^3/ul Absolute Basos (auto) 0.1 (0-0.2) 10^3/ul Absolute Nucleated RBC 0.01 10^3/ul Nucleated RBC % 0.2 INR (Anticoag Therapy) (0.89-1.11) Sodium 122 L (133-145) mmol/L Potassium 4.0 (3.5-5.0) mmol/L Chloride 89 L (101-111) mmol/L Carbon Dioxide 21 L (22-32) mmol/L Anion Gap 12 H (2-11) mmol/L BUN 16 (6-24) mg/dL Creatinine 0.87 (0.67-1.17) mg/dL Est GFR ( Amer) 114.7 (>60) Est GFR (Non-Af Amer) 89.2 (>60) BUN/Creatinine Ratio 18.4 (8-20) Glucose 86 (70-100) mg/dL Lactic Acid 1.1 (0.5-2.0) mmol/L Calcium 9.3 (8.6-10.3) mg/dL Total Bilirubin 1.00 (0.2-1.0) mg/dL AST 46 H (13-39) U/L ALT 37 (7-52) U/L Alkaline Phosphatase 90 (34-104) U/L Troponin I 0.03 (<0.04) ng/mL B-Natriuretic Peptide ( - 100) pg/mL Total Protein 7.5 (6.4-8.9) g/dL Albumin 3.9 (3.2-5.2) g/dL Globulin 3.6 (2-4) g/dL Albumin/Globulin Ratio 1.1 (1-3) Digoxin 0.9 (0.8-2.0) ng/ml Phenytoin < 2.5 L (10-20) mcg/mL Valproic Acid 17.0 L (50-100) mcg/mL Serum Alcohol < 10 (<10) mg/dL 08/20/16 08/20/16 Range/Units 19:20 19:20 WBC (3.5-10.8) 10^3/ul RBC (4.0-5.4) 10^6/ul Hgb (14.0-18.0) g/dl Hct (42-52) % MCV (80-94) fL MCH (27-31) pg MCHC (31-36) g/dl RDW (10.5-15) % Plt Count (150-450) 10^3/ul MPV (7.4-10.4) um3 Neut % (Auto) (38-83) % Lymph % (Auto) (25-47) % [place] % (Auto) (1-9) % Eos % (Auto) (0-6) % Baso % (Auto) (0-2) % Absolute Neuts (auto) (1.5-7.7) 10^3/ul Absolute Lymphs (auto) (1.0-4.8) 10^3/ul Absolute Monos (auto) (0-0.8) 10^3/ul Absolute Eos (auto) (0-0.6) 10^3/ul Absolute Basos (auto) (0-0.2) 10^3/ul Absolute Nucleated RBC 10^3/ul Nucleated RBC % INR (Anticoag Therapy) 0.91 (0.89-1.11) Sodium (133-145) mmol/L Potassium (3.5-5.0) mmol/L Chloride (101-111) mmol/L Carbon Dioxide (22-32) mmol/L Anion Gap (2-11) mmol/L BUN (6-24) mg/dL Creatinine (0.67-1.17) mg/dL Est GFR ( Amer) (>60) Est GFR (Non-Af Amer) (>60) BUN/Creatinine Ratio (8-20) Glucose (70-100) mg/dL Lactic Acid (0.5-2.0) mmol/L Calcium (8.6-10.3) mg/dL Total Bilirubin (0.2-1.0) mg/dL AST (13-39) U/L ALT (7-52) U/L Alkaline Phosphatase (34-104) U/L Troponin I (<0.04) ng/mL B-Natriuretic Peptide 347 H ( - 100) pg/mL Total Protein (6.4-8.9) g/dL Albumin (3.2-5.2) g/dL Globulin (2-4) g/dL Albumin/Globulin Ratio (1-3) Digoxin (0.8-2.0) ng/ml Phenytoin (10-20) mcg/mL Valproic Acid (50-100) mcg/mL Serum Alcohol (<10) mg/dL Microbiology and Other Data: Microbiology 08/20/16 23:50 Influenza Types A,B Antigen (BRANDI) - Final Nasal Specimen received for Influenza A/B Molecular testing Assess/Plan/Problems-Billing Assessment: Mr. 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 - Patient Problems (1) Syncope Code(s): R55 - SYNCOPE AND COLLAPSE Comment: Question of syncope vs seizure, as patient reports non-adherence to medication regimen. Unable to obtain baseline for patient at this time, as he had lorazepam earlier. Pacer interrogation ordered to assess for other arrhythmias. PT/OT consult to evaluate safety at home, as patient lives by himself. (2) Chest pain Code(s): R07.9 - CHEST PAIN, UNSPECIFIED Comment: Patient now denies CP or pressure. Troponins flat, EKG with no significant ST or T wave changes. EKG similar in comparison to previous EKGs. Suspect secondary to afib with RVR, COPD exacerbation. Patient should pursue outpatient stress test with PCP. (3) Atrial fibrillation with rapid ventricular response Code(s): I48.91 - UNSPECIFIED ATRIAL FIBRILLATION Comment: Likely secondary to medication non-adherence, now controlled on diltiazem gtt. Discontinue diltiazem gtt and restart home digoxin, cardizem CD (to start 08/22) , and metoprolol. Continue to monitor on telemetry. (4) COPD (chronic obstructive pulmonary disease) Code(s): J44.9 - CHRONIC OBSTRUCTIVE PULMONARY DISEASE, UNSPECIFIED Comment: With mild to moderate exacerbation. Patient not requiring supplemental O2. Questionable adherence to home medications. Continue prn nebulizers, azithromycin, steroids, inhalers. (5) Seizure disorder Code(s): G40.909 - EPILEPSY, UNSP, NOT INTRACTABLE, WITHOUT STATUS EPILEPTICUS Comment: ? seizure activity at home due to medication non-adherence Valproic acid level subtherapeutic, Keppra level pending. Restart valproic acid and Keppra per home dosing guidelines. Continue seizure precautions. (6) HTN (hypertension) Code(s): I10 - ESSENTIAL (PRIMARY) HYPERTENSION Comment: BP is under good control. Continue current medication regimen. (7) Hypnic jerks Code(s): F51.8 - OTH SLEEP DISORD NOT DUE TO A SUB OR KNOWN PHYSIOL COND Comment: Patient denies at this time. Continue ropinirole. (8) Bipolar disorder Comment: Continue home medication regimen. Continue prn Seroquel, per the med rec. (9) History of peripheral neuropathy Code(s): Z86.69 - PERSONAL HISTORY OF DIS OF THE NERVOUS SYS AND SENSE ORGANS Comment: Continue gabapentin. (10) DVT prophylaxis Code(s): MMZ2945 - Comment: Stalin (11) Full code status Code(s): Z78.9 - OTHER SPECIFIED HEALTH STATUS Status and Disposition: Inpatient admission. Anticipate LOS >2 days. Plan to allow lorazepam to wear off and limit benzodiazepine use; PT/OT consults ordered to evaluate safety at home prior to d/c.
[2016-08-21] MEDS: Divalproex ER TAB(*) 500 MG PO SCH (16:41)
[2016-08-21] MEDS: Digoxin TAB* 0.25 MG PO SCH (16:42)
[2016-08-21] MEDS: Sertraline* 100 MG TAB PO SCH (16:44)
[2016-08-21] MEDS: Albuterol 2.5 MG/3 ML NEB.SOL* (0.083%) INH PRN (17:00)
[2016-08-21] MEDS: Diltiazem TAB* 30 MG PO SCH (18:22)
[2016-08-21] MEDS: Gabapentin CAP(*) 300 MG PO SCH (20:54)
[2016-08-21] MEDS: Ropinirole TAB* 0.5 MG TAB PO SCH (20:57)
[2016-08-21] MEDS: Metoprolol Tartrate TAB* 25 MG PO SCH (20:59)
--- NOTE | 2016-08-21 21:11 | PN ---
Hospitalist Progress Note SUPERVISOR [employer]SEM[employer] called to bedside, as patient was awake and very concerned about his medications. He states that he was taken off of his metoprolol and started on Digoxin. He also denies taking Requip and states that he has not had any issues with leg jerks in several months. He also denies use of Seroquel, stating it can make him very manic and agitated. He specifically asked for more lorazepam; however, I did express concern over his oversedation today after receiving a dose last evening for anxiety. He states that he does not sleep much and that it works the best. He was open to taking Ambien, stating, "I've taken that before and it does okay." We discussed sleep hygiene and went over his medications. The patient accepted his other psychiatric meds, as well as his cardizem and digoxin and seizure medications. Patient advised that we would closely monitor his VS and condition and that new medications might be warranted. He is in agreement with this plan. Patient is currently alert and oriented and cooperative with staff.
[2016-08-21] MEDS: Zolpidem TAB* 10 MG PO PRN (21:20)
[2016-08-22] MEDS: Diltiazem TAB* 30 MG PO SCH (00:10)
[2016-08-22] MEDS: Albuterol 2.5 MG/3 ML NEB.SOL* (0.083%) INH SCH ×4 (00:56→19:26)
[2016-08-22] MEDS: Albuterol 2.5 MG/3 ML NEB.SOL* (0.083%) INH PRN ×2 (04:47→10:29)
[2016-08-22] MEDS: Omeprazole CAP* 20 MG PO SCH (05:05)
[2016-08-22] MEDS: Benzonatate CAP* 100 MG PO PRN ×2 (05:05→20:12)
[2016-08-22 05:06] LABS: Hematocrit 39 % (42-52); Hemoglobin 13.2 g/dl (14.0-18.0); Mean Corpuscular HGB Conc 34 g/dl (31-36); Mean Corpuscular Hemoglobin 31 pg (27-31); Mean Corpuscular Volume 93 fL (80-94); Mean Platelet Volume 9 um3 (7.4-10.4); Red Cell Distribution Width 16 % (10.5-15); White Blood Count 7.4 10^3/ul (3.5-10.8)
[2016-08-22 05:17] LABS: BUN/Creatinine Ratio 21.9 (8-20); Calcium 8.7 mg/dL (8.6-10.3); EGFR African American 140.5 (>60); EGFR Non-African American 109.2 (>60); Potassium 3.7 mmol/L (3.5-5.0)
[2016-08-22] MEDS: NS 0.9% 1000 ML* 1,000 ML IV SCH ×2 (05:29→22:03)
[2016-08-22] MEDS: Mometasone/Formoter 200/5 MDI INH SCH ×2 (07:48→19:32)
[2016-08-22] MEDS ORDERED: Rivaroxaban TAB(*) 10 MG PO SCH (09:00)
[2016-08-22] MEDS: Metoprolol Tartrate TAB* 25 MG PO SCH ×2 (09:58→20:14)
[2016-08-22] MEDS: Digoxin TAB* 0.25 MG PO SCH (09:58)
[2016-08-22] MEDS: Divalproex ER TAB(*) 500 MG PO SCH (09:58)
[2016-08-22] MEDS: Diltiazem CD CAP* 120 MG PO SCH (09:58)
[2016-08-22] MEDS: levETIRAcetam TAB* 500 MG PO SCH (09:59)
[2016-08-22] MEDS: Sertraline* 100 MG TAB PO SCH (10:01)
[2016-08-22] MEDS: predniSONE TAB* 20 MG PO SCH (10:01)
[2016-08-22] MEDS: guaiFENesin ER TAB 600 MG PO SCH ×2 (10:02→20:13)
[2016-08-22] MEDS: Gabapentin CAP(*) 300 MG PO SCH ×2 (10:02→20:13)
[2016-08-22] MEDS: Aspirin EC Low Dose* 81 MG TAB.EC PO SCH (10:02)
[2016-08-22] MEDS: Docusate CAP* 100 MG PO SCH ×2 (10:02→20:13)
[2016-08-22] MEDS: Rivaroxaban TAB(*) 20 MG TAB PO SCH (10:06)
[2016-08-22] MEDS ORDERED: Rivaroxaban TAB(*) 20 MG TAB PO SCH (10:50)
--- NOTE | 2016-08-22 15:14 | PN ---
Subjective Date of Service: 08/22/16 Interval History: Patient seen and examined at bedside. Pt was sleeping upon entering the room. Denies fever, chills, chest discomfort, abdominal pain, N/V/D. Pt reports shortness of breath, but states that it is his baseline. [facility] [place] any seizure activity overnight or today. Discussed with Pt the importance of having PT/OT evals to ensure that he is safe to ambulate and go home. Pt agrees at at least ambulate with [facility] [place]. Tele: Afib, rate 80-100's. Family History: Unchanged from Admission Social History: Unchanged from Admission Past Medical History: Unchanged from Admission Objective Active Medications: Acetaminophen (Tylenol Tab*) 650 mg PO Q6H PRN Reason: FEVER/PAIN Albuterol (Ventolin 2.5 Mg/3 Ml Neb.[place]*) 2.5 mg INH Q2H PRN Reason: SOB/ WHEEZING Albuterol (Ventolin 2.5 Mg/3 Ml Neb.[place]*) 2.5 mg INH [id number] AWAKE [facility] Aspirin (Aspirin Ec Low Dose*) 81 mg PO DAILY [facility] Azithromycin (Zithromax Tab*) 500 mg PO 2000 [facility] Benzonatate (Tessalon Cap*) 200 mg PO Q8H PRN Reason: COUGH Digoxin (Lanoxin Tab*) 0.25 mg PO DAILY [facility] Diltiazem HCl (Cardizem Cd Cap*) 120 mg PO DAILY [facility] Divalproex Sodium (Depakote Er Tab(*)) 1,000 mg PO DAILY [facility] Docusate Sodium (Colace Cap*) 200 mg PO BID [facility] Gabapentin (Neurontin Cap(*)) 600 mg PO BID [facility] Guaifenesin (Mucinex*) 1,200 mg PO BID [facility] Sodium Chloride (Ns 0.9% 1000 Ml*) 1,000 mls @ 75 mls/hr IV PER RATE [facility] Levetiracetam (Keppra Tab*) 500 mg PO DAILY [facility] Melatonin (Melatonin (Nf)) 3 mg PO BEDTIME PRN; Protocol Reason: Sleep Metoprolol Tartrate (Lopressor Tab*) 25 mg PO BID [facility] Mometasone Furoate/Formoterol Fumar (Dulera 200/5 Mdi*) 2 puff INH BID [facility] Nicotine (Nicotine Inhaler*) 10 mg INH Q2H PRN Reason: CRAVING Omeprazole (Prilosec Cap*) 20 mg PO DAILY@0600 [facility] Prednisone (Deltasone Tab*) 40 mg PO DAILY [facility] Prochlorperazine Edisylate (Compazine Inj*) 5 mg IV Q6H PRN Reason: NAUSEA/ VOMITING Quetiapine Fumarate (Seroquel Tab*) 200 mg PO BEDTIME PRN Reason: AGITATION Rivaroxaban (Xarelto (*)) 20 mg PO DAILY [facility] Ropinirole HCl (Requip Tab*) 0.5 mg PO BEDTIME [facility] Sertraline HCl (Zoloft*) 100 mg PO DAILY [facility] Zolpidem Tartrate (Ambien Tab*) 10 mg PO BEDTIME PRN Reason: INSOMNIA Vital Signs 08/21/16 08/21/16 08/21/16 16:42 17:01 18:09 Temperature Pulse Rate 82 75 96 Respiratory 16 Rate Blood Pressure 114/74 (mmHg) O2 Sat by Pulse 98 98 Oximetry 08/21/16 08/21/16 08/21/16 20:00 20:33 20:54 Temperature 98.1 F Pulse Rate 88 Respiratory 20 20 20 Rate Blood Pressure 123/72 (mmHg) O2 Sat by Pulse 98 Oximetry 08/21/16 08/21/16 08/22/16 22:54 23:57 00:56 Temperature 97.8 F Pulse Rate 89 87 Respiratory 20 20 20 Rate Blood Pressure 154/76 (mmHg) O2 Sat by Pulse 98 98 Oximetry 08/22/16 08/22/16 08/22/16 03:35 04:01 04:48 Temperature 97.3 F Pulse Rate 108 76 118 Respiratory 20 20 Rate Blood Pressure 145/81 (mmHg) O2 Sat by Pulse 98 96 Oximetry 08/22/16 08/22/16 08/22/16 07:47 07:53 08:00 Temperature 97.4 F Pulse Rate 108 88 Respiratory 18 16 16 Rate Blood Pressure 115/78 (mmHg) O2 Sat by Pulse 97 98 Oximetry 08/22/16 08/22/16 08/22/16 09:57 10:02 10:31 Temperature 97.4 F Pulse Rate 108 82 Respiratory 18 18 16 Rate Blood Pressure 115/78 (mmHg) O2 Sat by Pulse 97 99 Oximetry 08/22/16 08/22/16 11:23 14:03 Temperature 97.4 F Pulse Rate 87 88 Respiratory 18 16 Rate Blood Pressure 141/78 (mmHg) O2 Sat by Pulse 98 99 Oximetry Oxygen Devices in Use Now: None Appearance: NAD, laying in bed. Eyes: No Scleral Icterus, PERRLA Ears/Nose/Mouth/Throat: NL Teeth, Lips, Gums, Mucous Membranes Moist Neck: NL Appearance and Movements; NL JVP, Trachea Midline Respiratory: Symmetrical Chest Expansion and Respiratory Effort, Clear to Auscultation Cardiovascular: NL Sounds; No Murmurs; No JVD, - - Heart rate irregular Extremities: No Edema Skin: No Rash or Ulcers Neurological: Alert and Oriented x 3, NL Muscle Strength and Tone Lines/Tubes/Other Access: Clean, Dry and Intact Peripheral IV - site benign Nutrition: Taking PO's Result Diagrams: 08/22/16 04:34 08/22/16 04:34 Microbiology and Other Data: Microbiology 08/20/16 23:50 Influenza Types A,B Antigen (BRANDI) - Final Nasal Specimen received for Influenza A/B Molecular testing Assess/Plan/Problems-Billing Assessment: Mr. 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 - Patient Problems (1) Syncope Code(s): R55 - SYNCOPE AND COLLAPSE SNOMED Code(s): 147792660 Comment: - Question of syncope vs seizure, as patient reports non-adherence to medication regimen. - Pacer interrogation today, noted to be in Afib since March 05. Occationally Afib with RVR. - PT/OT consult to evaluate safety at home, as patient lives by himself. (2) Chest pain Code(s): R07.9 - CHEST PAIN, UNSPECIFIED SNOMED Code(s): 27820123 Comment: - Patient now denies CP or pressure. - Troponins flat, EKG with no significant ST or T wave changes. EKG similar in comparison to previous EKGs. - Suspect secondary to afib with RVR, COPD exacerbation. - Patient should pursue outpatient stress test with PCP. (3) Atrial fibrillation with rapid ventricular response Code(s): I48.91 - UNSPECIFIED ATRIAL FIBRILLATION SNOMED Code(s): 079743590107615 Comment: - HR better controlled, 80-100's. - Likely secondary to medication non-adherence, now controlled on digoxin, cardizem CD, and metoprolol. - Continue Xarelto - Continue to monitor on telemetry. (4) COPD (chronic obstructive pulmonary disease) Code(s): J44.9 - CHRONIC OBSTRUCTIVE PULMONARY DISEASE, UNSPECIFIED SNOMED Code(s): 39966714 Comment: - With mild to moderate exacerbation. - Patient not requiring supplemental O2. - Questionable adherence to home medications. - Continue prn nebulizers, azithromycin, steroids, inhalers. (5) Seizure disorder Code(s): G40.909 - EPILEPSY, UNSP, NOT INTRACTABLE, WITHOUT STATUS EPILEPTICUS SNOMED Code(s): 715766722 Comment: - ? seizure activity at home due to medication non-adherence - Valproic acid and Keppra level subtherapeutic. - Continue valproic acid and Keppra per home dosing guidelines. - Continue seizure precautions. (6) HTN (hypertension) Code(s): I10 - ESSENTIAL (PRIMARY) HYPERTENSION SNOMED Code(s): 48569620 Comment: - BP is under good control. SBP 110-150's - Continue current medication regimen. (7) Bipolar disorder Comment: - Continue home medication regimen. - Continue prn Seroquel, per the med rec. (8) History of peripheral neuropathy Code(s): Z86.69 - PERSONAL HISTORY OF DIS OF THE NERVOUS SYS AND SENSE ORGANS SNOMED Code(s): 574293062 Comment: - Continue gabapentin. (9) Hypnic jerks Code(s): F51.8 - OT SLEEP DISORD NOT DUE TO A SUB OR KNOWN PHYSIOL COND SNOMED Code(s): 579170467 Comment: - Patient denies at this time. - Continue ropinirole. (10) DVT prophylaxis Code(s): QHU8972 - SNOMED Code(s): 176879384 Comment: - Xarelto (11) Full code status Code(s): Z78.9 - OTHER SPECIFIED HEALTH STATUS SNOMED Code(s): 930543910 Status and Disposition: Inpatient admission. Anticipate LOS >2 days. Plan to allow lorazepam to wear off and limit benzodiazepine use; PT/OT consults ordered to evaluate safety at home prior to d/c.
[2016-08-22] MEDS: Ropinirole TAB* 0.5 MG TAB PO SCH (20:12)
[2016-08-22] MEDS: Azithromycin TAB* 250 MG PO SCH (20:13)
[2016-08-22] MEDS: Zolpidem TAB* 10 MG PO PRN (20:14)
[2016-08-23] MEDS: Albuterol 2.5 MG/3 ML NEB.SOL* (0.083%) INH SCH ×2 (01:05→08:52)
[2016-08-23] MEDS: Albuterol 2.5 MG/3 ML NEB.SOL* (0.083%) INH PRN (04:30)
[2016-08-23] MEDS: Omeprazole CAP* 20 MG PO SCH (05:35)
[2016-08-23 08:21] VITALS: BP 128/71
[2016-08-23] MEDS: Divalproex ER TAB(*) 500 MG PO SCH (08:27)
[2016-08-23] MEDS: guaiFENesin ER TAB 600 MG PO SCH (08:28)
[2016-08-23] MEDS: predniSONE TAB* 20 MG PO SCH (08:28)
[2016-08-23] MEDS: Metoprolol Tartrate TAB* 25 MG PO SCH (08:29)
[2016-08-23] MEDS: levETIRAcetam TAB* 500 MG PO SCH (08:29)
[2016-08-23] MEDS: Gabapentin CAP(*) 300 MG PO SCH (08:30)
[2016-08-23] MEDS: Aspirin EC Low Dose* 81 MG TAB.EC PO SCH (08:31)
[2016-08-23] MEDS: Sertraline* 100 MG TAB PO SCH (08:32)
[2016-08-23] MEDS: Digoxin TAB* 0.25 MG PO SCH (08:33)
[2016-08-23] MEDS: Diltiazem CD CAP* 120 MG PO SCH (08:33)
[2016-08-23] MEDS: Docusate CAP* 100 MG PO SCH (08:43)
[2016-08-23] MEDS: Mometasone/Formoter 200/5 MDI INH SCH (08:52)
--- NOTE | 2016-08-23 10:21 | PN ---
Subjective Date of Service: 08/23/16 Interval History: Patient seen and examined at bedside. Pt states that he is ready for discharge to home. He reports that he was able to ambulate twice around in the halls and do 9 stairs up and down with [facility] staff. Tele: Afib, rate 80-90's. Family History: Unchanged from Admission Social History: Unchanged from Admission Past Medical History: Unchanged from Admission Objective Active Medications: Acetaminophen (Tylenol Tab*) 650 mg PO Q6H PRN Reason: FEVER/PAIN Albuterol (Ventolin 2.5 Mg/3 Ml Neb.[place]*) 2.5 mg INH Q2H PRN Reason: SOB/ WHEEZING Albuterol (Ventolin 2.5 Mg/3 Ml Neb.[place]*) 2.5 mg INH [id number] AWAKE [facility] Aspirin (Aspirin Ec Low Dose*) 81 mg PO DAILY [facility] Azithromycin (Zithromax Tab*) 500 mg PO 2000 [facility] Benzonatate (Tessalon Cap*) 200 mg PO Q8H PRN Reason: COUGH Digoxin (Lanoxin Tab*) 0.25 mg PO DAILY [facility] Diltiazem HCl (Cardizem Cd Cap*) 120 mg PO DAILY [facility] Divalproex Sodium (Depakote Er Tab(*)) 1,000 mg PO DAILY [facility] Docusate Sodium (Colace Cap*) 200 mg PO BID [facility] Gabapentin (Neurontin Cap(*)) 600 mg PO BID [facility] Guaifenesin (Mucinex*) 1,200 mg PO BID [facility] Sodium Chloride (Ns 0.9% 1000 Ml*) 1,000 mls @ 75 mls/hr IV PER RATE [facility] Levetiracetam (Keppra Tab*) 500 mg PO DAILY [facility] Melatonin (Melatonin (Nf)) 3 mg PO BEDTIME PRN; Protocol Reason: Sleep Metoprolol Tartrate (Lopressor Tab*) 25 mg PO BID [facility] Mometasone Furoate/Formoterol Fumar (Dulera 200/5 Mdi*) 2 puff INH BID [facility] Nicotine (Nicotine Inhaler*) 10 mg INH Q2H PRN Reason: CRAVING Omeprazole (Prilosec Cap*) 20 mg PO DAILY@0600 [facility] Prednisone (Deltasone Tab*) 40 mg PO DAILY [facility] Prochlorperazine Edisylate (Compazine Inj*) 5 mg IV Q6H PRN Reason: NAUSEA/ VOMITING Quetiapine Fumarate (Seroquel Tab*) 200 mg PO BEDTIME PRN Reason: AGITATION Rivaroxaban (Xarelto (*)) 20 mg PO DAILY [facility] Ropinirole HCl (Requip Tab*) 0.5 mg PO BEDTIME [facility] Sertraline HCl (Zoloft*) 100 mg PO DAILY [facility] Zolpidem Tartrate (Ambien Tab*) 10 mg PO BEDTIME PRN Reason: INSOMNIA Vital Signs 08/22/16 08/22/16 08/22/16 10:31 11:23 14:03 Temperature 97.4 F Pulse Rate 82 87 88 Respiratory 16 18 16 Rate Blood Pressure 141/78 (mmHg) O2 Sat by Pulse 99 98 99 Oximetry 08/22/16 08/22/16 08/22/16 15:36 19:27 19:32 Temperature 97.5 F 97.7 F Pulse Rate 87 93 80 Respiratory 17 18 Rate Blood Pressure 127/87 157/93 (mmHg) O2 Sat by Pulse 97 99 99 Oximetry 08/22/16 08/23/16 08/23/16 23:23 03:53 04:31 Temperature 97.4 F 97.5 F Pulse Rate 75 88 77 Respiratory 16 16 20 Rate Blood Pressure 142/87 154/84 (mmHg) O2 Sat by Pulse 97 98 97 Oximetry 08/23/16 08/23/16 08/23/16 07:20 08:30 08:33 Temperature 97.5 F Pulse Rate 86 86 Respiratory 18 18 Rate Blood Pressure 128/71 (mmHg) O2 Sat by Pulse 98 Oximetry 08/23/16 08:55 Temperature Pulse Rate 85 Respiratory 18 Rate Blood Pressure (mmHg) O2 Sat by Pulse 95 Oximetry Oxygen Devices in Use Now: None Appearance: NAD, sitting up on the side of the bed Eyes: No Scleral Icterus, PERRLA Ears/Nose/Mouth/Throat: NL Teeth, Lips, Gums, Mucous Membranes Moist Neck: NL Appearance and Movements; NL JVP, Trachea Midline Respiratory: Symmetrical Chest Expansion and Respiratory Effort, - - Lung sounds with rhonchi bilateral Cardiovascular: NL Sounds; No Murmurs; No JVD, - - Heart rate irregular Extremities: No Edema Skin: No Rash or Ulcers Neurological: Alert and Oriented x 3, NL Muscle Strength and Tone Lines/Tubes/Other Access: Clean, Dry and Intact Peripheral IV - site benign Nutrition: Taking PO's Result Diagrams: 08/22/16 04:34 08/22/16 04:34 Additional Lab and Data: Microbiology and Other Data: Microbiology 08/20/16 23:50 Influenza Types A,B Antigen (BRANDI) - Final Nasal Specimen received for Influenza A/B Molecular testing Assess/Plan/Problems-Billing Assessment: Mr. 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 - Patient Problems (1) Syncope Code(s): R55 - SYNCOPE AND COLLAPSE SNOMED Code(s): 958170151 Comment: - Question of syncope vs seizure, as patient reports non-adherence to medication regimen. - Pacer interrogation 08/22, noted to be in Afib since March 05. Occasionally Afib with RVR. - PT/OT consult to evaluate safety at home, as patient lives by himself. (2) Chest pain Code(s): R07.9 - CHEST PAIN, UNSPECIFIED SNOMED Code(s): 52146571 Comment: - Patient now denies CP or pressure. - Troponins flat, EKG with no significant ST or T wave changes. EKG similar in comparison to previous EKGs. - Suspect secondary to afib with RVR, COPD exacerbation. - Patient should pursue outpatient stress test with PCP or Dr. Reich. (3) Atrial fibrillation with rapid ventricular response Code(s): I48.91 - UNSPECIFIED ATRIAL FIBRILLATION SNOMED Code(s): 533611513613404 Comment: - HR better controlled, 80-100's. - Likely secondary to medication non-adherence, now controlled on digoxin, cardizem CD, and metoprolol. - Continue Xarelto - Continue to monitor on telemetry. (4) COPD (chronic obstructive pulmonary disease) Code(s): J44.9 - CHRONIC OBSTRUCTIVE PULMONARY DISEASE, UNSPECIFIED SNOMED Code(s): 72987583 Comment: - With mild to moderate exacerbation. - Patient not requiring supplemental O2. - Questionable adherence to home medications. - Continue prn nebulizers, azithromycin, steroids, inhalers. (5) Seizure disorder Code(s): G40.909 - EPILEPSY, UNSP, NOT INTRACTABLE, WITHOUT STATUS EPILEPTICUS SNOMED Code(s): 119918999 Comment: - ? seizure activity at home due to medication non-adherence - Valproic acid and Keppra level subtherapeutic. - Continue valproic acid and Keppra per home dosing guidelines. - Continue seizure precautions. (6) HTN (hypertension) Code(s): I10 - ESSENTIAL (PRIMARY) HYPERTENSION SNOMED Code(s): 23868344 Comment: - BP is under good control. SBP 120-150's - Continue current medication regimen. (7) Bipolar disorder Comment: - Continue home medication regimen. - Continue prn Seroquel, per the med rec. (8) History of peripheral neuropathy Code(s): Z86.69 - PERSONAL HISTORY OF DIS OF THE NERVOUS SYS AND SENSE ORGANS SNOMED Code(s): 711747190 Comment: - Continue gabapentin. (9) Hypnic jerks Code(s): F51.8 - OTH SLEEP DISORD NOT DUE TO A SUB OR KNOWN PHYSIOL COND SNOMED Code(s): 078734540 Comment: - Patient denies at this time. - Continue ropinirole. (10) DVT prophylaxis Code(s): MOW9559 - SNOMED Code(s): 434570996 Comment: - Cassiarelto (11) Full code status Code(s): Z78.9 - OTHER SPECIFIED HEALTH STATUS SNOMED Code(s): 767772966 Status and Disposition: Inpatient admission. Anticipate LOS >2 days. Stable for discharge to home today.
--- NOTE | 2016-08-24 13:40 | DS ---
DISCHARGE SUMMARY: DATE OF ADMISSION: 08/20/16 DATE OF DISCHARGE: 08/23/16 ATTENDING PHYSICIAN: Dr. Danielle Leonard* (dictated by Chastity Haro NP) PRIMARY CARE PROVIDER: Dr. Kellee Bangura. PRIMARY DIAGNOSES: 1. COPD exacerbation. 2. Atrial fibrillation with RVR. 3. Noncardiac chest pain. 4. Syncope, suspect possibly secondary to a seizure due to medication noncompliance. 5. Left lower lobe lung nodule. SECONDARY DIAGNOSES: 1. Hyponatremia. 2. Bipolar disorder. 3. Depression. 4. Bilateral lower extremity neuropathy. STUDIES WHILE IN THE HOSPITAL: 1. Chest x-ray on 08/20/16. Radiologist's impression: Peribronchial cuffing could be seen in the setting of bronchitis or other inflammatory lung disease. Otherwise, there is no radiographic evidence of acute cardiopulmonary abnormality. 2. Chest, abdomen, and pelvis CT on 08/20/16. Radiologist's impression: No acute traumatic injury including bony fracture or hemorrhage identified. At the left lower lobe, there is a 1.3 cm pulmonary nodule. If prior CT imaging of the chest can be made available, direct comparison can be made to comment on chronicity. Otherwise, considering the patient's apparent smoking history, possibility of neoplasm must be considered. Advanced calcification arterial sclerosis of the lower abdominal aorta and bilateral common iliac arteries. There appears to be calcified occlusion of the right common iliac artery. Please correlate to signs and symptoms of pelvic and lower extremity arterial insufficiency. Additional chronic, degenerative, and iatrogenic findings are described in the body of the report. 3. Brain CT on 08/20/16. Radiologist's impression: No cavalier fracture or acute intracranial hemorrhage. Mild degenerative changes of the cervical spine without acute fracture or dislocation. 4. Cervical spine CT on 08/20/16. Radiologist's impression: No cavalier fracture or acute intracranial hemorrhage. Mild degenerative changes of the cervical spine without acute fracture or dislocation. 5. Left elbow x-ray on 08/20/16. Radiologist's impression: Normal radiograph of the left elbow. If the patient's symptoms persist, further followup imaging is recommended. DISCHARGE MEDICATIONS: New home medications: 1. Azithromycin 250 mg oral daily for 3 days. 2. Prednisone 40 mg oral daily for 3 days. Continued home medications: 1. Albuterol HFA inhaler 2 puffs inhalation every 4 hours as needed shortness of breath or wheeze. 2. Aspirin 81 mg oral daily. 3. Depakote ER 1000 mg oral daily. 4. Keppra 500 mg oral daily. 5. Seroquel 200 mg oral daily at bedtime as needed for agitation. 6. Breo Ellipta 200/25 one inhalation daily. 7. Digoxin 0.25 mg oral daily. 8. Requip 0.5 mg oral daily at bedtime. 9. Metoprolol tartrate 25 mg oral twice daily. 10. Gabapentin 600 mg oral twice daily. 11. Xarelto 20 mg oral daily. 12. Diltiazem CD 120 mg oral daily. 13. Sertraline 100 mg oral daily. Discontinued home medications are: Seroquel 200 mg standing daily at bedtime. HISTORY OF PRESENT ILLNESS/HOSPITAL COURSE: Mr. Cortez is a 61-year-old male with past medical history significant for bipolar disorder; porcelain mitral valve replacement; seizure disorder who is nonadherent with medications; COPD; chronic atrial fibrillation, on Xarelto. The patient reports getting more shortness of breath and fatigue over approximately a week's time. The patient admitted to not being compliant with his medications. The patient states that last week, he was with a friend and when he got up off the couch and walked to do something, he collapsed. There were no convulsions noted. The next thing the patient recalls was waking up back on the couch with abrasions to his left elbow and a sore spot his head. The patient continued to have shortness of breath that was worsening and he began developing continuous chest tightness and pressure without associated nausea, vomiting, palpitations, or lightheadedness. The patient also noted that he had developed a dry cough and while he was having coughing fits, he was having diaphoresis. Based on concern for the patient's symptoms, he presented to the emergency room for further evaluation of his symptoms. While in the emergency room, the patient was found to be in atrial fibrillation with RVR with a rate of 120 to 130s. He had a chest x-ray showing no acute findings and had an abrasion to his left elbow, as well as a contusion to his left chest wall. The patient in his workup was found to have any hematomas, intracranial hemorrhaging, or bleeding on his radiographic workup. Based off of concern for the patient's presentation, the hospitalists were asked to evaluate the patient for admission. While in the hospital, the patient was treated for COPD exacerbation. He was given albuterol nebulizer and started on azithromycin, was given IV prednisone and changed to prednisone. As far as his atrial fibrillation with RVR, it was felt this could be likely compensatory to his COPD. The patient was given diltiazem IV to control his rate less than 120. He is continued on a Xarelto. During the patient's time, his atrial fibrillation was eventually controlled with oral diltiazem, digoxin, and metoprolol. As far as the patient's chest pain, he became chest pain free other than the discomfort at the area of his chest wall contusion. The patient's troponins were trended and his troponin peaked to 0.03. The patient has chronic hyponatremia. His hyponatremia improved during his stay to 127 the day prior to his discharge. The patient had fasting lipids checked and his lipids were within normal limits. The patient had the Keppra level checked. It was less than 2 and a valproic acid level that was initially 17 and increased to 39 once the patient's medications were restarted. The patient was continued on Depakote and Keppra and was seizure free during his hospital stay. The patient was noted to have slight thrombocytopenia. The patient remained afebrile and was on Humira. The patient was found to have an incidental left lower lobe, 1.3 cm lung nodule. According to the patient, this is known about and he follows with Dr. Servin outpatient. It is recommended that the patient be considered for outpatient stress test if he continues to have chest discomfort. Next, the patient was able to ambulate in the hallways without difficulty and do stairs. Mr. Cortez is stable for discharge to home today. Vital signs are as follows : Temperature 97.5, heart rate 85, respiratory rate 18, O2 sat 95% on room air. DISCHARGE PLAN: Mr. Cortez will be discharged to home. Activity as tolerated. He should be on a heart-healthy diet. As far as the patient's COPD exacerbation, he is being continued on azithromycin and prednisone for 3 more days. The patient has been asked to continue to use his Breo at home. As far as the patient's atrial fibrillation with RVR, the patient's heart rate is now controlled. According to a pacemaker interrogation, the patient has been in atrial fibrillation since March 05. The patient should follow with Dr. Reich as outpatient for his atrial fibrillation. The patient has an appointment with Dr. Reich on September 12 at 11 a.m. As far as the patient's seizure disorder, he has been asked to continue his Keppra and Depakote. He has an appointment with Dr. Horton on September 04 at 9:30 a.m. The patient should continue to follow with Dr. Servin as needed and as previously scheduled , he has an appointment in January for followup appointment with Dr. Servin. The patient should be seen in followup with his primary care provider, Dr. Kellee Bangura and Dr. Bangura's office will call and setup a followup appointment. I recommend that the patient be considered for an outpatient stress test if he continues to have chest discomfort and that he follows up with lung imaging for his lung nodule if he is not currently being followed by Dr. Servin for this. This is a summarized report of a complex medical history and hospital stay. For further details, please see the entire medical record. TIME SPENT: Time for this discharge was 50 minutes, and 25 minutes were spent face- to-face with the patient discussing discharge plans and instructions. CONDITION ON DISCHARGE: Stable. Reviewed by NEVILLE RODRIGUEZ 08/25/16 [id number] CC: Dr. Kellee Bangura; Dr. Rosales Reich; Dr. Horton * [id number]/[facility] #: [id number] MTDD
== END 2016-08-23 11:35 | disposition home or self-care (01) | DRG 191 ==
LOC: ED 18:36 → MEDTELE 20:52
PROVIDERS: ADMIT Hospitalist; ATTEND Internal Medicine
DX: J44.1 Chronic obstructive pulmonary disease with (acute) exacerbation (principal); E87.1 Hypo-osmolality and hyponatremia; D69.6 Thrombocytopenia, unspecified; E11.42 Type 2 diabetes mellitus with diabetic polyneuropathy; I07.1 Rheumatic tricuspid insufficiency; I48.2 Chronic atrial fibrillation; I10 Essential (primary) hypertension; R55 Syncope and collapse; F31.9 Bipolar disorder, unspecified; G40.909 Epilepsy, unspecified, not intractable, without status epilepticus; Z95.3 Presence of xenogenic heart valve; Z91.14 Patient's other noncompliance with medication regimen; S50.312A Abrasion of left elbow, initial encounter; W18.39XA Other fall on same level, initial encounter; Y92.009 Unspecified place in unspecified non-institutional (private) residence as the place of occurrence of the external cause; S20.212A Contusion of left front wall of thorax, initial encounter; R91.1 Solitary pulmonary nodule; Z95.0 Presence of cardiac pacemaker; Z98.49 Cataract extraction status, unspecified eye; Z81.8 Family history of other mental and behavioral disorders; F17.210 Nicotine dependence, cigarettes, uncomplicated; F51.8 Other sleep disorders not due to a substance or known physiological condition; Z79.01 Long term (current) use of anticoagulants; Z79.82 Long term (current) use of aspirin
CPT/HCPCS: 36415; 70450; 71010; 71260; 72125; 74177; 80048; 80053; 80061; 80162; 80164; 80177; 80185; 80307; 80320; 83605; 83880; 84484; 85025; 85027; 85610; 87040; 87502; 93005; 94640; 94760; 99406; A9270-GY; G0480; J2060; J2920; J2930; J3411; J7512; Q9967

== ENCOUNTER 2016-10-15 12:53 | Emergency (ER) | payer MEDICARE, MEDICAID ==
[2016-10-15 13:28] LABS: Hematocrit 46 % (42-52); Hemoglobin 15.4 g/dl (14.0-18.0); Mean Corpuscular HGB Conc 33 g/dl (31-36); Mean Corpuscular Hemoglobin 32 pg (27-31); Mean Corpuscular Volume 95 fL (80-94); Mean Platelet Volume 8 um3 (7.4-10.4); Red Blood Count 4.83 10^6/ul (4.0-5.4); Red Cell Distribution Width 15 % (10.5-15); White Blood Count 6.4 10^3/ul (3.5-10.8)
[2016-10-15 13:41] LABS: BUN/Creatinine Ratio 10.3 (8-20); Calcium 9.3 mg/dL (8.6-10.3); EGFR African American 90.4 (>60); EGFR Non-African American 70.3 (>60); Magnesium 2.4 mg/dL (1.9-2.7); Potassium 4.6 mmol/L (3.5-5.0); Total Bilirubin 0.9 mg/dL (0.2-1.0)
[2016-10-15] MEDS ORDERED: NS 0.9% 1000 ML* 1,000 ML IV ONE (14:04)
--- NOTE | 2016-10-15 14:54 | RAD ---
INDICATION: Seizure COMPARISON: CT brain August 20, 2016 TECHNIQUE: Noncontrast axial source images were acquired from the skull base to the vertex. FINDINGS: Ventricles/sulci: The ventricles and cisterns are normal in size and configuration for age. Brain parenchyma: There is no focal parenchymal finding, evidence of intracranial mass, or intracranial mass effect. Intracranial hemorrhage:None. Extra-axial spaces: There are no abnormal extra axial fluid collections or evidence of extra-axial mass. Calvarium: There is no calvarial fracture or other calvarial abnormality. Scalp: There is no evidence of scalp or extracalvarial soft tissue abnormality. Paranasal sinuses/mastoid: The paranasal sinuses and mastoid air cells are clear. Other: None. IMPRESSION: NEGATIVE EXAMINATION
[2016-10-15] MEDS ORDERED: Acetaminophen TAB* 325 MG PO ONE (16:02)
--- NOTE | 2016-10-15 17:00 | ED ---
Deshaun, DoctorJasmin, scribed for Eun Triana MD on 10/15/16 at 1312 . Neurological HPI - HPI Summary HPI Summary: 61 year old male arrived to [facility] via EMS after suffering a seizure this morning. states that he experienced the seizure while reading at a bus stop; does not recall whether or not he hit his head. He does not feel any symptoms now. Pt regularly takes Keppra as he has a PMHx of seizures; he states that his seizures have worsened in frequency in the past three years. He indicates that he may have missed a few doses of his medication in the past few days. His last seizure was approximately two months ago; he was admitted to the hospital following that episode. He is a "moderate" drinker, uses marijuana, heavy cigarette smoker, and lives alone. In addition to seizures, he has a PMHx of COPD and emphysema, and regularly takes Keppra, Digoxin, and Depakote. - History of Current Complaint Chief Complaint: EDSeizure Stated Complaint: SEIZURE Hx Obtained From: Patient Onset/Duration: Sudden Onset Timing: Intermittent Episodes Lasting: Onset Severity: Moderate Current Severity: Moderate Seizure Severity: Moderate Number of Seizures: 1 Pain Intensity: 0 Pain Scale Used: 0-10 Numeric Syncope Context: Unknown - does not remember context of seizure episode Aggravating: Unknown Alleviating: Spontanious Resolution Associated Signs and Symptoms: Positive: Seizure. Negative: Fever - Additional Pertinent History Primary Care Physician: [id number] - Allergy/Home Medications Allergies/Adverse Reactions: Allergies Allergy/AdvReac Type Severity Reaction Status Date / Time No Known Allergies Allergy Verified 02/01/16 08:19 PMH/Surg Hx/FS Hx/Imm Hx Endocrine/Hematology History: Reports: Hx Anticoagulant Therapy Denies: Hx Diabetes, Hx Thyroid Disease Cardiovascular History: Reports: Hx Hypertension, Hx Pacemaker/ICD, Hx Peripheral Vascular Disease, Hx Valvular Heart Disease - Recent valve replacement surgery, Other Cardiovascular Problems/Disorders - Hx Atrial Fibrillation and was treatment with Warfarin which has been d/c'd Respiratory History: Reports: Hx Chronic Bronchitis, Hx Chronic Obstructive Pulmonary Disease (COPD), Other Respiratory Problems/Disorders - poss aspiration Denies: Hx Asthma History: Denies: Hx Renal Disease Musculoskeletal History: Denies: Hx Arthritis, Hx Osteoporosis Sensory History: Reports: Hx Cataracts, Hx Contacts or Glasses Opthamlomology History: Reports: Hx Cataracts, Hx Contacts or Glasses Neurological History: Reports: Hx Seizures, Other Neuro Impairments/Disorders - PERIPHERAL NEUROPATHY Denies: Hx Dementia Psychiatric History: Reports: Hx Anxiety, Hx Eating Disorder, Hx Depression, Hx Panic Disorder, Hx Post Traumatic Stress Disorder, Hx Inpatient Treatment, Hx Community Mental Health Tx, Hx Bipolar Disorder, Hx Suicide Attempt, Hx Substance Abuse, Other Psychiatric Issues/Disorders - has had ECT treatment Denies: Hx Schizophrenia, Hx of Violent Episodes Against Others - Surgical History Surgery Procedure, Year, and Place: cataracts removed. Hx Hernia Repair. AORTIC VALVE REPLACEMENT. PACEMAKER - Immunization History Date of Tetanus Vaccine: PT STATES UNSURE Date of Influenza Vaccine: NONE Infectious Disease History: No Infectious Disease History: Reports: Hx Tuberculosis - hx of inactive TB Denies: Hx Clostridium Difficile, Hx Hepatitis, Hx Human Immunodeficiency Virus (HIV), Hx of Known/Suspected MRSA, Hx Shingles, Hx Known/Suspected VRE, Hx Known/Suspected VRSA, History Other Infectious Disease, Traveled Outside the [place] in Last 30 Days - Family History Known Family History: Positive: Other - Mother -- depression, Father -- EtOH abuse - Social History Lives: Alone Alcohol Use: Daily - reports approximately 7 drinks/day Alcohol Amount: REPORTS BEER WITH DINNER TONIGHT Hx Substance Use: Yes Substance Use Type: Reports: Marijuana Substance Use Comment - Amount & Last Used: last weekend Hx Tobacco Use: Yes Smoking Status (MU): Heavy Every Day Tobacco Smoker Type: Cigarettes Amount Used/How Often: 1/2 PPD Length of Time of Smoking/Using Tobacco: 40 YRS Have You Smoked in the Last Year: Yes Review of Systems Negative: Fever Negative: Weakness All Other Systems Reviewed And Are Negative: Yes Physical Exam Triage Information Reviewed: Yes Vital Signs On Initial Exam: Initial Vitals Temp Pulse Resp BP Pulse Ox 97.2 F 86 16 106/64 98 10/15/16 12:57 10/15/16 12:57 10/15/16 12:57 10/15/16 12:57 10/15/16 12:57 Vital Signs Reviewed: Yes Appearance: Positive: Well-Appearing, No Pain Distress Skin: Positive: Warm, Skin Color Reflects Adequate Perfusion, Dry Eyes: Positive: EOMI, ANGELINA ENT: Positive: Pharynx normal, TMs normal Neck: Positive: Supple, Nontender Respiratory/Lung Sounds: Positive: Clear to Auscultation, Breath Sounds Present. Negative: Rales, Rhonchi, Wheezes Cardiovascular: Positive: RRR. Negative: Murmur, Rub Abdomen Description: Positive: Nontender, Soft. Negative: Distended, Guarding Musculoskeletal: Positive: Strength/ROM Intact. Negative: Edema Left, Edema Right Neurological: Positive: Sensory/Motor Intact, Alert, Oriented to Person Place, Time, CN Intact II-III Psychiatric: Positive: Affect/Mood Appropriate Diagnostics - Vital Signs Vital Signs Temp Pulse Resp BP Pulse Ox 10/15/16 13:02 97.4 F 83 18 106/64 98 10/15/16 12:57 97.2 F 86 16 106/64 98 - Laboratory Lab Results: 13:17 -- Lactic Acid: 8.3 Result Diagrams: 10/15/16 13:17 10/15/16 13:17 Lab Statement: Any lab studies that have been ordered have been reviewed, and results considered in the medical decision making process. - CT Brain CT CT Interpretation Completed By: Radiologist - IMPRESSION: NEGATIVE EXAMINATION - EKG 13:08 Cardiac Rate: NL - 86 bpm EKG Rhythm: Atrial Fibrillation EKG Interpretation: RBBB, AFib EKG Comparison: No Significant Change - from 08/21/2016, but no PVCs in EKG taken on 10/15/2016 Course/Dx - Course Course Of Treatment: 61 yo male known seizure disorder labs and ct normal ( lactic initially elevated -from sz- repeat was normal) ok to go home - Diagnoses Provider Diagnoses: Seizure disorder Discharge - Discharge Plan Condition: Stable Disposition: HOME The documentation as recorded by the Doctor fajardo Tahera accurately reflects the service I personally performed and the decisions made by me, Eun Triana MD.
[2016-10-15] MEDS ORDERED: levETIRAcetam TAB* 500 MG PO ONE (17:05)
[2016-10-15] MEDS ORDERED: levETIRAcetam TAB* 500 MG ONE (17:06)
[2016-10-15 17:37] VITALS: BP 108/64
[2016-10-17 11:26] LABS: Levetiracetam 12.8 mcg/mL
== END 2016-10-15 17:33 | disposition home or self-care (01) ==
LOC: ED 12:53
DX: G40.909 Epilepsy, unspecified, not intractable, without status epilepticus (principal); F17.210 Nicotine dependence, cigarettes, uncomplicated
CPT/HCPCS: 36415; 70450; 80053; 80164; 80177; 80375; 83605; 83735; 85025; 85610; 96360; 99283; A9270-GY; G0480

== ENCOUNTER 2017-06-06 21:00 | Emergency (ER) | payer MEDICARE, MEDICAID ==
[2017-06-06] MEDS ORDERED: LORazepam INJ* 2 MG/ML 1 ML VIAL ONE (21:03)
[2017-06-06] MEDS ORDERED: Haloperidol INJ IV/IM* 5 MG/ML AMP ONE (21:03)
[2017-06-06] MEDS ORDERED: diPHENhydraMINE IV* 50 MG/ML 1 ml VIAL (BENADRYL) ONE (21:03)
[2017-06-06] MEDS ORDERED: LORazepam INJ* 2 MG/ML 1 ML VIAL IV PUSH ONE (21:06)
[2017-06-06] MEDS ORDERED: diPHENhydraMINE IV* 50 MG/ML 1 ml VIAL (BENADRYL) IV ONE (21:06)
--- NOTE | 2017-06-06 21:49 | ED ---
Substance Abuse/Use - HPI Summary HPI Summary: Pt to ED via EMS and police pt reportedly intoxicated. mom called police for welfare check. pt was found outside of residence. Police had to subdue. He has 2 large hematoma's with several lilly running from his forehead to the top of his skull after a fall 1 week ago. He was flown to a trauma centered and worked up. Fall likely d/t intoxication. On questioning, patient is is uncooperative with exam and refuses to talk to the provider or the nurses. He is accompanied by several police officers and he is placed in restraints. Last blood thinner x 3 weeks ago. Multiple health problems, but patient is unable to verbalize. Hx also of bipolar, suicide attempts, depression, anxiety, PTSD, heart disease, pacemaker, COPD and alcoholism. Drinks to excess daily. - History Of Current Complaint Chief Complaint: EDMentalHealth Stated Complaint: 941 Time Seen by Provider: 06/06/17 21:05 Hx Obtained From: Patient Hx From Patient Unobtainable Due To: Altered Mental Status Onset/Duration of Drug/ETOH Abuse: Hours Ingestion History: Type/Name Of Drug - ETOH Overdose Characteristics: Oral Timing Of Abuse: Daily Severity Initially: Severe Severity Currently: Severe Character: Angry, Frustrated, Stuporous Aggravating Factor(s): Nothing Alleviating Factor(s): Nothing Associated Signs And Symptoms: Hostile, Intentional Ingestion Related Hx: Possible Multi Drug Ingestion - Risk Factor(s) Completed Suicide Risk Factors: Male, Age Greater Than 60, White [place], Living Alone, Unemployed - Allergies/Home Medications Allergies/Adverse Reactions: Allergies Allergy/AdvReac Type Severity Reaction Status Date / Time No Known Allergies Allergy Verified 02/01/16 08:19 PMH/Surg Hx/FS Hx/Imm Hx Previously Healthy: No Endocrine/Hematology History: Reports: Hx Anticoagulant Therapy Denies: Hx Diabetes, Hx Thyroid Disease Cardiovascular History: Reports: Hx Hypertension, Hx Pacemaker/ICD, Hx Peripheral Vascular Disease, Hx Valvular Heart Disease - Recent valve replacement surgery, Other Cardiovascular Problems/Disorders - Hx Atrial Fibrillation and was treatment with Warfarin which has been d/c'd Respiratory History: Reports: Hx Chronic Bronchitis, Hx Chronic Obstructive Pulmonary Disease (COPD), Other Respiratory Problems/Disorders - poss aspiration Denies: Hx Asthma History: Denies: Hx Renal Disease Musculoskeletal History: Denies: Hx Arthritis, Hx Osteoporosis Sensory History: Reports: Hx Cataracts, Hx Contacts or Glasses Opthamlomology History: Reports: Hx Cataracts, Hx Contacts or Glasses Neurological History: Reports: Hx Seizures, Other Neuro Impairments/Disorders - PERIPHERAL NEUROPATHY Denies: Hx Dementia Psychiatric History: Reports: Hx Anxiety, Hx Eating Disorder, Hx Depression, Hx Panic Disorder, Hx Post Traumatic Stress Disorder, Hx Inpatient Treatment, Hx Community Mental Health Tx, Hx Bipolar Disorder, Hx Suicide Attempt, Hx Substance Abuse, Other Psychiatric Issues/Disorders - has had ECT treatment Denies: Hx Schizophrenia, Hx of Violent Episodes Against Others - Surgical History Surgery Procedure, Year, and Place: cataracts removed. Hx Hernia Repair. AORTIC VALVE REPLACEMENT. PACEMAKER - Immunization History Date of Tetanus Vaccine: PT STATES UNSURE Date of Influenza Vaccine: NONE Infectious Disease History: No Infectious Disease History: Reports: Hx Tuberculosis - hx of inactive TB Denies: Hx Clostridium Difficile, Hx Hepatitis, Hx Human Immunodeficiency Virus (HIV), Hx of Known/Suspected MRSA, Hx Shingles, Hx Known/Suspected VRE, Hx Known/Suspected VRSA, History Other Infectious Disease, Traveled Outside the [place] in Last 30 Days - Family History Known Family History: Positive: Other - Mother -- depression, Father -- EtOH abuse - Social History Alcohol Use: Daily Alcohol Amount: REPORTS BEER WITH DINNER TONIGHT Hx Substance Use: Yes Substance Use Type: Reports: Marijuana Substance Use Comment - Amount & Last Used: last weekend Hx Tobacco Use: Yes Smoking Status (MU): Heavy Every Day Tobacco Smoker Type: Cigarettes Amount Used/How Often: 1/2 PPD Length of Time of Smoking/Using Tobacco: 40 YRS Have You Smoked in the Last Year: Yes Review of Systems Constitutional: Negative Negative: Fever, Chills, Fatigue, Skin Diaphoresis Eyes: Negative Cardiovascular: Negative Respiratory: Negative Positive: no symptoms reported, see HPI Positive: Other - several lilly to the head Neurological: Negative Positive: Other - uncooperative for exam All Other Systems Reviewed And Are Negative: Yes Physical Exam Triage Information Reviewed: Yes Vital Signs On Initial Exam: Initial Vitals Temp Pulse Resp BP Pulse Ox 96.9 F 71 20 131/95 99 06/06/17 21:02 06/06/17 21:02 06/06/17 21:02 06/06/17 21:02 06/06/17 21:02 Vital Signs Reviewed: Yes Completion Of Physical Exam Limited Due To: Altered Mental Status Appearance: Positive: Ill-Appearing, Cachectic, Signs of Trauma Skin: Positive: Other - several lilly to the head from previous head injury over 1 week ago Eyes: Positive: EOMI, ANGELINA, Conjunctiva Clear Respiratory/Lung Sounds: Positive: Clear to Auscultation, Breath Sounds Present Cardiovascular: Positive: Pulses are Symmetrical in both Upper and Lower Extremities Musculoskeletal: Positive: Strength/ROM Intact Neurological: Positive: Abnormal Gait, Slurred Speech Psychiatric: Positive: Patient Uncooperative for Exam AVPU Assessment: Alert - Toutle Coma Scale Best Eye Response: 4 - Spontaneous Best Motor Response: 6 - Obeys Commands Best Verbal Response: 5 - Oriented Coma Scale Total: 13 Diagnostics - Vital Signs Vital Signs Temp Pulse Resp BP Pulse Ox 06/06/17 21:15 20 06/06/17 21:02 96.9 F 71 20 131/95 99 - Laboratory Lab Statement: Any lab studies that have been ordered have been reviewed, and results considered in the medical decision making process. Course/Dx - Course Course Of Treatment: During the course of treament, patient is immediately placed in 4-point restraints with security and police at bedside as he is attempting to swing at the officers. He is given benadryl 50mg and ativan 2mg as he continues to scream out. He does not tell the provider why he thinks he is here, how much he drank or what had caused the injury to his head. Lab work obtained to assess PT/INR and CMP to assess need for medications d/t alcoholism. CT not obtained as he does not appear to have fallen. He was seen outside his house sitting upright and drinking beer. JULITA level Discharge - Discharge Plan Referrals: Kellee Bangura MD [Primary Care Provider] -
[2017-06-06 22:46] LABS: Hematocrit 36 % (42-52); Hemoglobin 11.8 g/dl (14.0-18.0); Mean Corpuscular HGB Conc 33 g/dl (31-36); Mean Corpuscular Hemoglobin 31 pg (27-31); Mean Corpuscular Volume 94 fL (80-94); Mean Platelet Volume 8 um3 (7.4-10.4); Red Blood Count 3.81 10^6/ul (4.0-5.4); Red Cell Distribution Width 17 % (10.5-15); White Blood Count 5.6 10^3/ul (3.5-10.8)
[2017-06-06 22:49] LABS: Add Diff/Slide Review? Slide Review Added; Comments Flag Yes
[2017-06-06 23:00] LABS: Albumin 3.5 g/dL (3.2-5.2); Anion Gap 10 mmol/L (2-11); BUN/Creatinine Ratio 9.1 (8-20); Blood Urea Nitrogen 12 mg/dL (6-24); CO2 Carbon Dioxide 23 mmol/L (22-32); Calcium 9.6 mg/dL (8.6-10.3); Chloride 97 mmol/L (101-111); EGFR African American 70.7 (>60); Globulin 3.7 g/dL (2-4); Glucose 84 mg/dL (70-100); Potassium 4.6 mmol/L (3.5-5.0); Sodium 130 mmol/L (133-145); Total Protein 7.2 g/dL (6.4-8.9)
[2017-06-06 23:01] LABS: ALT 14 U/L (7-52); AST 22 U/L (13-39); Acetaminophen < 15 mcg/mL; Alcohol 35 mg/dL (<10); Alkaline Phosphatase 79 U/L (34-104); Salicylate < 2.50 mg/dL (<30)
[2017-06-06 23:15] LABS: TSH (Thyroid Stimulating Horm) 8.16 mcIU/mL (0.34-5.60)
[2017-06-06 23:37] LABS: Eosinophils % 2 % (0-6); Immature Granulocytes 7 % (0-9); Myelocytes % 2 % (0-1); Neutrophil % 53 % (38-83); Polychromasia 1+; RBC Morphology Normal (Normal)
--- NOTE | 2017-06-07 08:02 | RAD ---
INDICATION: Altered mental status with +EtOH. COMPARISON: Most recent CT of the brain is dated October 15, 2016. TECHNIQUE: Contiguous axial sections of the brain were obtained from the skull base to the vertex without contrast. FINDINGS: The ventricles, cisterns and sulci are within normal limits. The segura-white matter differentiation is adequately maintained and there is no sulcal effacement. No significant focal abnormality or mass effect is present. There is no evidence for intracranial hemorrhage. There is a subgaleal hematoma overlying the left frontal and midline frontal bones measuring up to 1.4 cm in thickness. Skin lilly are seen overlying the laceration. No significant focal osseous abnormality is present. The visualized portion of the paranasal sinuses and mastoid air cells appear clear. IMPRESSION: Scalp laceration/hematoma without underlying calvarial fracture or intracranial hemorrhage.
[2017-06-07 11:26] VITALS: BP 144/78
--- NOTE | 2017-06-07 13:02 | PN ---
ED Flex Patient Progress Note Subjective: This is a 62 year-old M who is pending mental health evaluation secondary to abnormal behavior. Patient is being verbal aggressive to the staff. He is complaining needs his pain meds. He was asleep but is now awake and keeps pounding on the window and ambulating down the [place]. Morning meds ordered. Objective: Vitals: Most recent vital signs documented below. General NAD, Alert and oriented x3. Heart: rrr at 80 bpm Lungs: CTA or with rales, rhonchi, wheezing Neuro: able to ambulate with steady gait Laboratory: Current laboratory results documented below. Assessment: Depression NOS Plan: Pending psychiatric to perform a mental health exam. MHE exam performed and patient will be d/c home per dr Erickson. Diagnosis: depression NOS Condition: Stable Disposition: home Vital Signs Temp Pulse Resp BP Pulse Ox 96.9 F 84 20 144/78 94 06/06/17 21:02 06/07/17 11:00 06/06/17 21:15 06/07/17 11:00 06/07/17 11:00 Lab Results - Entire Visit 06/06/17 06/06/17 06/06/17 22:32 22:32 22:32 WBC 5.6 RBC 3.81 L Hgb 11.8 L Hct 36 L MCV 94 MCH 31 MCHC 33 RDW 17 H Plt Count 344 MPV 8 Immature Gran % (Auto) 7 Neut % (Auto) 70.4 Lymph % (Auto) 18.5 L Perry % (Auto) 8.3 Eos % (Auto) 1.7 Baso % (Auto) 1.1 Absolute Neuts (auto) 3.9 Absolute Lymphs (auto) 1.0 Absolute Monos (auto) 0.5 Absolute Eos (auto) 0.1 Absolute Basos (auto) 0.1 Absolute Nucleated RBC 0.01 Neutrophils % 53 Band Neutrophils % 5 Lymphocytes % 28 Monocytes % 9 Eosinophils % 2 Basophils % 1 Myelocytes % 2 H Nucleated RBC % 0.1 Normal RBC Morphology Normal Polychromasia 1+ INR (Anticoag Therapy) 1.06 Sodium 130 L Potassium 4.6 Chloride 97 L Carbon Dioxide 23 Anion Gap 10 BUN 12 Creatinine 1.32 H Est GFR ( Amer) 70.7 Est GFR (Non-Af Amer) 55.0 BUN/Creatinine Ratio 9.1 Glucose 84 Calcium 9.6 Total Bilirubin 0.60 AST 22 ALT 14 Alkaline Phosphatase 79 Total Protein 7.2 Albumin 3.5 Globulin 3.7 Albumin/Globulin Ratio 0.9 L TSH 8.16 H Salicylates < 2.50 Acetaminophen < 15 Serum Alcohol 35 H
[2017-06-07 13:29] LABS: Benzodiazepine Urine Screen None Detected (None Detect)
[2017-06-07 13:31] LABS: Urine Bilirubin Negative (Negative); Urine Glucose Negative (Negative); Urine Nitrite Negative (Negative)
[2017-06-07] MEDS ORDERED: levETIRAcetam TAB* 500 MG PO ONE (13:51)
[2017-06-07] MEDS ORDERED: Digoxin TAB* 0.25 MG PO ONE (13:51)
[2017-06-07] MEDS ORDERED: Atorvastatin* 40 MG TAB PO ONE (13:52)
[2017-06-07] MEDS ORDERED: hydrOXYzine HCL TAB* 25 MG PO ONE (13:52)
[2017-06-07] MEDS ORDERED: HYDROcodone/ACETAMIN 5-325 MG* 1 TAB PO ONE (13:53)
[2017-06-07] MEDS ORDERED: Cilostazol TAB* 100 MG PO ONE (13:53)
[2017-06-07] MEDS ORDERED: Metoprolol Tartrate TAB* 25 MG PO ONE (13:54)
[2017-06-07] MEDS ORDERED: Rivaroxaban TAB(*) 10 MG PO ONE (13:54)
[2017-06-07] MEDS ORDERED: Gabapentin CAP(*) 300 MG PO ONE (13:56)
[2017-06-07] MEDS ORDERED: Sertraline* 100 MG TAB PO ONE (13:59)
[2017-06-08] MEDS ORDERED: Divalproex ER TAB(*) 500 MG PO SCH (09:00)
== END 2017-06-07 14:40 | disposition home or self-care (01) ==
LOC: ED 21:00
DX: F32.9 Major depressive disorder, single episode, unspecified (principal); F17.210 Nicotine dependence, cigarettes, uncomplicated
CPT/HCPCS: 36415; 70450; 80053; 80307; 80320; 80329; 81003; 84443; 85025; 85610; 87086; 96374; 96375; 99285; A9270-GY; G0480; J1200; J1630; J2060

== ENCOUNTER 2017-07-03 14:40 | Emergency (ER) | payer MEDICARE, MEDICAID ==
--- NOTE | 2017-07-03 17:02 | RAD ---
INDICATION: Headache and confusion. COMPARISON: Comparison is made with a prior CT of the brain from June 07, 2017. TECHNIQUE: Contiguous axial sections of the brain were obtained from the skull base to the vertex without contrast. FINDINGS: The ventricles, cisterns and sulci are within normal limits. No significant focal abnormality or mass effect is seen. There is no evidence for hemorrhage. There is soft tissue swelling in the scalp anterior to the left frontal bone which has improved from the prior study significantly. No fracture is seen. The visualized portion of the paranasal sinuses and mastoid air cells appear clear. IMPRESSION: NO EVIDENCE FOR ACUTE INTRACRANIAL ABNORMALITY.
[2017-07-03] MEDS ORDERED: diPHENhydraMINE PO* 50 MG PO ONE (19:48)
[2017-07-03] MEDS ORDERED: Metoclopramide IV* 5 MG/ML 2 ML VIAL IV ONE (19:48)
[2017-07-03] MEDS ORDERED: Ketorolac INJ* 30 MG/ML 1 ML VIAL IV ONE (19:48)
[2017-07-03 20:45] LABS: ABS Basophils 0 10^3/ul (0-0.2); ABS Eosinophils 0.1 10^3/ul (0-0.6); ABS Lymphocytes 1.4 10^3/ul (1.0-4.8); ABS Monocytes 0.6 10^3/ul (0-0.8); ABS Neutrophils 1.9 10^3/ul (1.5-7.7); ABS Nucleated RBC 0.02 10^3/ul; Eosinophil % 2.6 % (0-6); Hematocrit 46 % (42-52); Hemoglobin 15.8 g/dl (14.0-18.0); Lymphocyte % 34.3 % (25-47); Mean Corpuscular HGB Conc 35 g/dl (31-36); Mean Corpuscular Hemoglobin 31 pg (27-31); Mean Corpuscular Volume 90 fL (80-94); Mean Platelet Volume 7 um3 (7.4-10.4); Nucleated Red Blood Cells % 0.5; Platelet Count 168 10^3/ul (150-450); Red Blood Count 5.04 10^6/ul (4.0-5.4); Red Cell Distribution Width 16 % (10.5-15)
[2017-07-03 20:53] LABS: INR 1.04 (0.77-1.02)
[2017-07-03 20:59] LABS: EGFR Non-African American 91.3 (>60)
[2017-07-03 22:40] VITALS: BP 133/64
--- NOTE | 2017-07-03 22:50 | ED ---
Albino Meade Gabriel, scribed for Jorge Nma MD on 07/03/17 at 1942 . Headache - HPI Summary HPI Summary: This patient is a 62 year old M presenting to [facility] with a chief complaint of LOVE since 06/28/2017. The patient rates the pain 8/10 in severity and located in the temples. Patient reports short term memory loss, confusion, poor motor function, difficulty ambulating, and lower abdominal pain due to fall. - History Of Current Complaint Chief Complaint: EDHeadache Stated Complaint: HEADACHE/CONFUSED Time Seen by Provider: 07/03/17 19:32 Hx Obtained From: Patient Onset/Duration: Started days ago - 5, Still Present Currently Pain Is: Current Pain Scale(0-10)= - 8 Timing: Constant Location of Headache: Temporal Aggravating Factor: Nothing Allevating Factors: Nothing Associated Signs And Symptoms: Other (Noted In Comments) - short term memory loss, confusion, poor motor function, difficulty ambulating, lower abdominal pain due to fall. - Allergies/Home Medications Allergies/Adverse Reactions: Allergies Allergy/AdvReac Type Severity Reaction Status Date / Time No Known Allergies Allergy Verified 07/03/17 14:51 PMH/Surg Hx/FS Hx/Imm Hx Previously Healthy: No Endocrine/Hematology History: Reports: Hx Anticoagulant Therapy Denies: Hx Diabetes, Hx Thyroid Disease Cardiovascular History: Reports: Hx Hypertension, Hx Pacemaker/ICD, Hx Peripheral Vascular Disease, Hx Valvular Heart Disease - Recent valve replacement surgery, Other Cardiovascular Problems/Disorders - Hx Atrial Fibrillation and was treatment with Warfarin which has been d/c'd Respiratory History: Reports: Hx Chronic Bronchitis, Hx Chronic Obstructive Pulmonary Disease (COPD), Other Respiratory Problems/Disorders - poss aspiration Denies: Hx Asthma History: Denies: Hx Renal Disease Musculoskeletal History: Denies: Hx Arthritis, Hx Osteoporosis Sensory History: Reports: Hx Cataracts, Hx Contacts or Glasses Opthamlomology History: Reports: Hx Cataracts, Hx Contacts or Glasses Neurological History: Reports: Hx Seizures, Other Neuro Impairments/Disorders - PERIPHERAL NEUROPATHY Denies: Hx Dementia Psychiatric History: Reports: Hx Anxiety, Hx Depression, Hx Panic Disorder, Hx Post Traumatic Stress Disorder, Hx Inpatient Treatment, Hx Community Mental Health Tx, Hx Bipolar Disorder, Hx Suicide Attempt, Hx Substance Abuse, Other Psychiatric Issues/Disorders - has had ECT treatment Denies: Hx Eating Disorder, Hx Schizophrenia, Hx of Violent Episodes Against Others - Surgical History Surgery Procedure, Year, and Place: cataracts removed. Hx Hernia Repair. AORTIC VALVE REPLACEMENT. PACEMAKER - Immunization History Date of Tetanus Vaccine: PT STATES UNSURE Date of Influenza Vaccine: NONE Infectious Disease History: Unable to Obtain/Confirm Infectious Disease History: Reports: Hx Tuberculosis - hx of inactive TB Denies: Hx Clostridium Difficile, Hx Hepatitis, Hx Human Immunodeficiency Virus (HIV), Hx of Known/Suspected MRSA, Hx Shingles, Hx Known/Suspected VRE, Hx Known/Suspected VRSA, History Other Infectious Disease, Traveled Outside the [place] in Last 30 Days - Family History Known Family History: Positive: Other - Mother -- depression, Father -- EtOH abuse - Social History Lives: Alone Alcohol Use: Daily Alcohol Amount: REPORTS BEER WITH DINNER TONIGHT Hx Substance Use: Yes Substance Use Type: Reports: Marijuana Substance Use Comment - Amount & Last Used: last weekend Hx Tobacco Use: Yes Smoking Status (MU): Heavy Every Day Tobacco Smoker Type: Cigarettes Amount Used/How Often: 1/2 PPD Length of Time of Smoking/Using Tobacco: 40 YRS Have You Smoked in the Last Year: Yes Review of Systems Constitutional: Other - difficulty ambulating Positive: Abdominal Pain Neurological: Other - short term memory loss, confusion, poor motor function Positive: Headache All Other Systems Reviewed And Are Negative: Yes Physical Exam - Summary Physical Exam Summary: Appearance: The patient is well-nourished in no acute distress and in no acute pain. Skin: The skin is warm and dry and skin color reflects adequate perfusion. HEENT: The head is normocephalic and atraumatic. The pupils are equal and reactive. The conjunctivae are clear and without drainage. Nares are patent and without drainage. Mouth reveals moist mucous membranes and the throat is without erythema and exudate. The external ears are intact. The ear canals are patent and without drainage. The tympanic membranes are intact. Neck: the neck is supple with full range of motion and non-tender. There are no carotid bruits. There is no neck vein distension. Respiratory: Chest is non-tender. Lungs are clear to auscultation and breath sounds are symmetrical and equal. Cardiovascular: Heart is regular rate and rhythm. There is no murmur or rub auscultated. There is no peripheral edema and pulses are symmetrical and equal. Abdomen: The abdomen is soft and non-tender. There are normal bowel sounds heard in all four quadrants and there is no organomegaly palpated. Musculoskeletal: There is no back tenderness noted. Extremities are non-tender with full range of motion. There is good capillary refill. There is no peripheral edema or calf tenderness elicited. Neurological: Patient is alert and oriented to person, place and time. The patient has symmetrical motor strength in all four extremities. Cranial nerves are grossly intact. Deep tendon reflexes are symmetrical and equal in all four extremities. Psychiatric: The patient has an appropriate affect and does not exhibit any anxiety or depression. Triage Information Reviewed: Yes Vital Signs On Initial Exam: Initial Vitals Temp Pulse Resp BP Pulse Ox 97.7 F 77 16 164/119 98 07/03/17 14:48 07/03/17 14:48 07/03/17 14:48 07/03/17 14:48 07/03/17 14:48 Vital Signs Reviewed: Yes Diagnostics - Vital Signs Vital Signs Temp Pulse Resp BP Pulse Ox 07/03/17 19:05 81 132/82 96 07/03/17 19:04 79 96 07/03/17 16:36 97.7 F 71 18 161/108 99 07/03/17 14:48 97.7 F 77 16 164/119 98 - Laboratory Result Diagrams: 07/03/17 20:35 07/03/17 20:35 Lab Statement: Any lab studies that have been ordered have been reviewed, and results considered in the medical decision making process. - CT CT brain CT Interpretation Completed By: Radiologist - NO EVIDENCE FOR ACUTE INTRACRANIAL ABNORMALITY. ED physician has reviewed this radiology report. Headache Course/Dx - Course Course Of Treatment: Mr. Cortez C/O a LOVE in his temples for a week with some confusion intermittently and poor memory. His W/U here was unremarkable and he improved with a 'migraine cocktail'. I recommended close F/U. - Diagnoses Provider Diagnoses: Headache Discharge - Discharge Plan Condition: Stable Disposition: HOME Patient Education Materials: Acute Headache (ED) Referrals: Kellee Bangura MD [Primary Care Provider] - 4 Days Additional Instructions: RETURN TO THE EMERGENCY DEPARTMENT FOR CHANGING OR WORSENING SYMPTOMS. The documentation as recorded by the Albino fajardo Gabriel accurately reflects the service I personally performed and the decisions made by me, Jorge Nam MD.
== END 2017-07-03 22:32 | disposition home or self-care (01) ==
LOC: ED 14:40
DX: R51 Headache (principal); F32.9 Major depressive disorder, single episode, unspecified; F43.10 Post-traumatic stress disorder, unspecified; Z79.01 Long term (current) use of anticoagulants; I10 Essential (primary) hypertension; Z95.2 Presence of prosthetic heart valve; F17.210 Nicotine dependence, cigarettes, uncomplicated
CPT/HCPCS: 36415; 70450; 80053; 80307; 80320; 82375; 83605; 85025; 85610; 85652; 86140; 96374; 96375; 99283; A9270-GY; G0480; J1885; J2765

== ENCOUNTER 2017-07-12 18:40 | Emergency (ER) | payer MEDICARE, MEDICAID ==
[2017-07-12 19:42] VITALS: BP 110/73
[2017-07-12] MEDS ORDERED: levETIRAcetam TAB* 500 MG ONE (20:05)
[2017-07-12] MEDS ORDERED: levETIRAcetam TAB* 500 MG PO ONE (20:05)
--- NOTE | 2017-07-14 19:36 | ED ---
Barbra Meade Abhishek, scribed for Monica Jain MD on 07/12/17 at 2152 . Neurological HPI - HPI Summary HPI Summary: This patient is a 62 year old M presenting to [facility] with a chief complaint of seizure since 1900 today. The episode occurred for 2 minutes and is described as a full body seizure. Medications are reviewed and the patient reports he takes kepra. Report given by EMS states that the patient was at a sports bar at the onset of seizure per EMS report. Pt later awoke and states he did not take kepra today and the last time patient took seizure medication was two days ago. The patient rates the pain 0/10 in severity. Symptoms aggravated by nothing. Symptoms alleviated by nothing. Patient reports depression. Patient denies head neck chest abd pain, SI, and hallucinations. Pt also reportedly drank alcohol recently. - History of Current Complaint Chief Complaint: EDSeizure Stated Complaint: SEIZURE Time Seen by Provider: 07/12/17 19:46 Hx Obtained From: Patient, EMS Onset/Duration: Sudden Onset, Started hours ago Pain Intensity: 0 Pain Scale Used: 0-10 Numeric Syncope Context: Witnessed - bystanders Frequency: Episodes x___ - 1, Episodes Lasting ____ (in Mins/Days/Weeks/Years) - 2 minutes Syncope Location: All Extremities Aggravating: Nothing Alleviating: Nothing Associated Signs and Symptoms: Positive: Loss of Consciousness, Seizure, Depression. Negative: Headache, Neck Pain/Stiffness, Chest Pain Related Hx: Seizure - Additional Pertinent History Primary Care Physician: [facility] - Allergy/Home Medications Allergies/Adverse Reactions: Allergies Allergy/AdvReac Type Severity Reaction Status Date / Time No Known Allergies Allergy Verified 07/03/17 14:51 PMH/Surg Hx/FS Hx/Imm Hx Endocrine/Hematology History: Reports: Hx Anticoagulant Therapy Denies: Hx Diabetes, Hx Thyroid Disease Cardiovascular History: Reports: Hx Hypertension, Hx Pacemaker/ICD, Hx Peripheral Vascular Disease, Hx Valvular Heart Disease - Recent valve replacement surgery, Other Cardiovascular Problems/Disorders - Hx Atrial Fibrillation and was treatment with Warfarin which has been d/c'd Respiratory History: Reports: Hx Chronic Bronchitis, Hx Chronic Obstructive Pulmonary Disease (COPD), Other Respiratory Problems/Disorders - poss aspiration Denies: Hx Asthma History: Denies: Hx Renal Disease Musculoskeletal History: Denies: Hx Arthritis, Hx Osteoporosis Sensory History: Reports: Hx Cataracts, Hx Contacts or Glasses Opthamlomology History: Reports: Hx Cataracts, Hx Contacts or Glasses Neurological History: Reports: Hx Seizures, Other Neuro Impairments/Disorders - PERIPHERAL NEUROPATHY Denies: Hx Dementia Psychiatric History: Reports: Hx Anxiety, Hx Depression, Hx Panic Disorder, Hx Post Traumatic Stress Disorder, Hx Inpatient Treatment, Hx Community Mental Health Tx, Hx Bipolar Disorder, Hx Suicide Attempt, Hx Substance Abuse, Other Psychiatric Issues/Disorders - has had ECT treatment Denies: Hx Eating Disorder, Hx Schizophrenia, Hx of Violent Episodes Against Others - Surgical History Surgery Procedure, Year, and Place: cataracts removed. Hx Hernia Repair. AORTIC VALVE REPLACEMENT. PACEMAKER - Immunization History Date of Tetanus Vaccine: PT STATES UNSURE Date of Influenza Vaccine: NONE Infectious Disease History: No Infectious Disease History: Reports: Hx Tuberculosis - hx of inactive TB Denies: Hx Clostridium Difficile, Hx Hepatitis, Hx Human Immunodeficiency Virus (HIV), Hx of Known/Suspected MRSA, Hx Shingles, Hx Known/Suspected VRE, Hx Known/Suspected VRSA, History Other Infectious Disease, Traveled Outside the [place] in Last 30 Days - Family History Known Family History: Positive: Other - Mother -- depression, Father -- EtOH abuse - Social History Alcohol Use: Daily Alcohol Amount: REPORTS BEER WITH DINNER TONIGHT Hx Substance Use: Yes Substance Use Type: Reports: Marijuana Substance Use Comment - Amount & Last Used: last weekend Hx Tobacco Use: Yes Smoking Status (MU): Heavy Every Day Tobacco Smoker Type: Cigarettes Amount Used/How Often: 1/2 PPD Length of Time of Smoking/Using Tobacco: 40 YRS Have You Smoked in the Last Year: Yes Review of Systems Eyes: Negative ENT: Negative Negative: Chest Pain Respiratory: Negative Negative: Abdominal Pain Genitourinary: Negative Musculoskeletal: Other - negative neck pain, Skin: Negative Neurological: Other - Seizure. Negative hallucinations Negative: Headache Psychological: Other - negative SI Positive: Depressed All Other Systems Reviewed And Are Negative: No Physical Exam - Summary Physical Exam Summary: Appearance: Alert, conversive, nontoxic appearing Skin: Warm, dry, no mottling, no rashes, no contusions HEENT: EOMI, PERRL, moist mucous membranes, Slightly hard at hearing Neck: No masses on the neck, supple Respiratory: Clear to auscultation, breath sounds present, no rales, no rhonchi , no wheezes Cardiovascular: RRR, pulses are symmetrical in both lower and upper extremities Abdomen: Soft, non-tender Bowel Sounds: Present Musculoskeletal: No CVA tenderness, no obvious deformity, moving all extremities in a grossly normal manner Neurological: A&Ox3, CN II-XII Intact, moving all extremities symmetrically Psychiatric: Normal affect and mood Triage Information Reviewed: Yes Vital Signs On Initial Exam: Initial Vitals Temp Pulse Resp BP Pulse Ox 98.1 F 100 18 100 07/12/17 18:57 07/12/17 18:57 07/12/17 18:57 07/12/17 18:57 07/12/17 18:57 Vital Signs Reviewed: Yes - [place] Coma Scale Coma Scale Total: 15 Diagnostics - Vital Signs Vital Signs Temp Pulse Resp BP Pulse Ox 07/12/17 19:43 94 23 100 07/12/17 19:41 90 18 110/73 100 07/12/17 19:12 118/81 07/12/17 18:57 98.1 F 100 18 100 - Laboratory Lab Statement: Any lab studies that have been ordered have been reviewed, and results considered in the medical decision making process. Course/Dx - Course Course Of Treatment: Patient left AMA. We recommended labs, MHE and other examinations as well as observation. - Diagnoses Provider Diagnoses: Seizure Discharge - Discharge Plan Condition: Stable Disposition: AGAINST MEDICAL ADVICE Patient Education Materials: Recurrent Seizures in Adults (ED) Referrals: Louie Lewis MD [Primary Care Provider] - Additional Instructions: Please take your medications as previously instructed. return if worse or any new symptoms. It is imperative to follow up with your neurologist. The documentation as recorded by the Barbra fajardo Abhishek accurately reflects the service I personally performed and the decisions made by , Monica Jain MD.
== END 2017-07-12 20:21 | disposition left against medical advice (07) ==
LOC: ED 18:40
DX: R56.9 Unspecified convulsions (principal); F32.9 Major depressive disorder, single episode, unspecified; I10 Essential (primary) hypertension; Z95.0 Presence of cardiac pacemaker; Z95.2 Presence of prosthetic heart valve; I48.91 Unspecified atrial fibrillation; Z79.01 Long term (current) use of anticoagulants; J44.9 Chronic obstructive pulmonary disease, unspecified; G62.9 Polyneuropathy, unspecified; F41.0 Panic disorder [episodic paroxysmal anxiety]; F43.10 Post-traumatic stress disorder, unspecified; F12.90 Cannabis use, unspecified, uncomplicated; F17.210 Nicotine dependence, cigarettes, uncomplicated
CPT/HCPCS: 99283; A9270-GY

== ENCOUNTER 2017-07-31 12:57 | Observation (INO) | payer MEDICARE, MEDICAID ==
[2017-07-31 13:43] LABS: ABS Basophils 0 10^3/ul (0-0.2); ABS Eosinophils 0.2 10^3/ul (0-0.6); ABS Lymphocytes 1.2 10^3/ul (1.0-4.8); ABS Monocytes 0.7 10^3/ul (0-0.8); ABS Neutrophils 3.3 10^3/ul (1.5-7.7); ABS Nucleated RBC 0 10^3/ul; Eosinophil % 3.2 % (0-6); Hematocrit 38 % (42-52); Hemoglobin 12.9 g/dl (14.0-18.0); Lymphocyte % 22.6 % (25-47); Mean Corpuscular HGB Conc 34 g/dl (31-36); Mean Corpuscular Hemoglobin 31 pg (27-31); Mean Corpuscular Volume 90 fL (80-94); Mean Platelet Volume 7 um3 (7.4-10.4); Nucleated Red Blood Cells % 0; Platelet Count 187 10^3/ul (150-450); Red Blood Count 4.18 10^6/ul (4.0-5.4); Red Cell Distribution Width 15 % (10.5-15); White Blood Count 5.5 10^3/ul (3.5-10.8)
[2017-07-31 13:54] LABS: INR 0.94 (0.77-1.02)
[2017-07-31] MEDS ORDERED: levETIRAcetam IV* 1,000 MG in NS 0.9% 100 ML* 100 ML IVPB ONE (13:55)
[2017-07-31] MEDS ORDERED: LORazepam INJ* 2 MG/ML 1 ML VIAL IV PUSH ONE (13:55)
[2017-07-31 13:57] LABS: EGFR Non-African American 75.7 (>60)
[2017-07-31] MEDS ORDERED: D5W IVPB ONE (14:15)
[2017-07-31] MEDS ORDERED: LEVETIRACETAM IVPB ONE (14:15)
[2017-07-31] MEDS ORDERED: NS 0.9% 1000 ML* 1,000 ML IV ONE (15:26)
[2017-07-31] MEDS ORDERED: Morphine INJ* 2 MG/ML 1 ML SYRINGE (TWO MG - NEW SYRINGE VERSION) IV PRN (18:04)
[2017-07-31] MEDS ORDERED: Acetaminophen TAB* 325 MG PO PRN (18:04)
[2017-07-31] MEDS ORDERED: Thiamine IV* 100 MG/ML 2 ML VIAL IM ONE (18:06)
[2017-07-31] MEDS ORDERED: Albuterol/Ipratropium NEB.SOL* Albuterol 2.5 MG/Ipratropium 0.5 MG 3 ML INH PRN (18:09)
[2017-07-31] MEDS ORDERED: LORazepam TAB(*) 1 MG PO SCH (19:00)
[2017-07-31] MEDS: Metoprolol Tartrate TAB* 25 MG PO SCH (19:37)
[2017-07-31] MEDS: Diazepam TAB(*) 10 MG PO SCH (19:37)
[2017-07-31] MEDS: NS 0.9% 1000 ML* 1,000 ML IV SCH (19:39)
[2017-07-31] MEDS: Gabapentin CAP(*) 300 MG PO SCH (19:46)
[2017-07-31] MEDS: Mometasone/Formoter 200/5 MDI INH SCH (19:46)
[2017-07-31] MEDS: levETIRAcetam TAB* 500 MG PO SCH (19:46)
[2017-07-31] MEDS: Cilostazol TAB* 100 MG PO SCH (19:47)
[2017-07-31 20:56] LABS: Urine Appearance Clear; Urine Blood Negative (Negative); Urine Color Yellow; Urine Ketones Negative (Negative); Urine Protein Negative (Negative); Urine Specific Gravity 1.008 (1.010-1.030); Urine Urobilinogen Negative (Negative)
--- NOTE | 2017-07-31 21:56 | HP ---
HISTORY AND PHYSICAL: DATE OF ADMISSION: 07/31/17 PRIMARY CARE PROVIDER: Unknown. CHIEF COMPLAINT: Seizure. HISTORY OF PRESENT ILLNESS: Cristhian Cortez is a 62-year-old male with history of alcoholism and seizure disorder, who was noted to have a seizure episode just before he was about to get to the pharmacy to get his antiseizure medications. The patient currently is postictal, mildly sedated and is not a good historian at all. He is not able to provide me with information how often he gets his seizures. He could not tell me how long he had been out of his seizure medications and when was his last alcoholic beverage. He did tell me that he drinks approximately 6 to 12 beers a day. He lives alone and is . He is going to be placed on an overnight observation with a diagnosis of seizure. PAST MEDICAL HISTORY: 1. History of bipolar disease. 2. History of depression. 3. History of seizure disorder. 4. History of alcohol abuse. 5. Hypertension. 6. History of SIADH. 7. Neuropathy. 8. Peripheral vascular disease in bilateral lower extremities. 9. History of COPD, not oxygen dependent. 10. History of mitral valve regurgitation, status post mitral valve replacement with bioprosthetic valve. It appears that the patient used to be on anticoagulation for his atrial fibrillation but he is not anymore. The patient himself could not contribute why it happened. MEDICATIONS: Current medications obtained from the patient's pharmacy include: 1. Metoprolol tartrate 25 mg daily. 2. Lipitor 40 mg daily. 3. Diltiazem CD 240 mg daily. 4. Depakote ER 1500 mg daily. 5. Digoxin 0.25 mg daily. 6. Breo Ellipta 1 puff daily. 7. Hydroxyzine 50 mg every 6 hours p.r.n. 8. Advair 230/21 two puffs b.i.d. 9. Pletal 100 mg b.i.d. 10. Aspirin 81 mg daily. 11. Zoloft 100 mg daily. 12. Voltaren gel t.i.d. p.r.n. 13. Gabapentin 600 mg b.i.d. 14. Keppra 500 mg b.i.d. FAMILY HISTORY: Unobtainable from this lethargic postictal patient. SOCIAL HISTORY: The patient stated that he drinks 6 to 12 beers a day. He could not tell me if he smokes cigarettes or uses drugs. He states that he was and lives alone. His mother is his surrogate, her name is Patricia Cortez. He lives in [place], [place]. REVIEW OF SYSTEMS: Basically unobtainable from this postictal patient. PHYSICAL EXAMINATION GENERAL: The patient is a very pleasant 62-year-old male, who was lying bed. The patient appears in no acute distress. The patient is lethargic, but easily arousable. He appears postictal and he is not a good historian. He is able to tell me that the year is 2018, but he was not able to tell me the . VITAL SIGNS: Blood pressure 142/92, heart rate of 93 and irregularly irregular , respiratory rate 16, oxygen saturation 95% on room air, temperature 97.0. HEENT: Head: Atraumatic, normocephalic. Eyes: Pupils are equal, reactive to light and accommodation. Oropharynx clear. Mucosa dry. NECK: Supple. No JVD. No bruits bilaterally. RESPIRATORY: Coarse scant wheezes in bilateral mid lung fontanez. CARDIOVASCULAR: Irregularly irregular rhythm. No murmur. ABDOMEN: Soft, nontender. Bowel sounds are present in all 4 quadrants. EXTREMITIES: Lower extremities, there are poorly palpable bilateral pedal pulses. Slightly delayed capillary refill. There is no clubbing or cyanosis. LABORATORY DATA/DIAGNOSTIC DATA: White blood cell count 5.5, hemoglobin 12.9, hematocrit 38, and platelets 187,000. Sodium 128, potassium 4.2, chloride 97, carbon dioxide 20, BUN 14, creatinine 1.0. Lactic acid of 5.7. Liver function tests were unremarkable. The patient's digoxin and valproic acid level is pending at the time of dictation. EKG showed atrial fibrillation with heart rate of 117 beats per minute with right bundle branch block and left posterior hemiblock comparing with an EKG from a year ago. The atrial fibrillation rate is much faster today, otherwise not much changes were noted. ASSESSMENT AND PLAN: 1. Seizure. May be due to medical noncompliance, which the patient admitted to , but it is also possible that it is exacerbated by alcohol withdrawal. The patient is going to be placed back on Keppra and valproic acid. The patient also received what appears to be 1 g IV Keppra in the emergency department. He is going to be placed on seizure precautions. 2. To prevent possibility of recurrent seizure and recurrent alcohol withdrawal seizure, the patient is going to be placed on scheduled dose of Ativan prophylaxis of seizure. 3. 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 I will place the patient on Ativan withdrawal protocol. Thiamine and folate is going to be also provided. 4. For his history of atrial fibrillation, currently is a little bit faster than expected likely due to the patient's medical noncompliance and withdrawal. The patient is going to be continued on his digoxin and metoprolol. 5. For the patient's chronic obstructive pulmonary disease, he appears to be in moderate exacerbation, but I think we can treat it with Dulera inhalers as well as Duo-Nebs on a p.r.n. basis. 6. For the patient's peripheral vascular disease in bilateral lower extremities , Pletal was going to be continued as well as aspirin. 7. For DVT prophylaxis, the patient is going to be placed on heparin subcutaneously. 8. The patient's code status is full and his surrogate is his mother. TIME SPENT: Approximately 65 minutes were spent on admission of this patient, more than half that time was spent [id number] with the patient during the interview and physical exam. [id number]/[facility] #: [id number] MTDD
[2017-07-31] MEDS: Heparin VIAL(*) 5000 UNITS/ML VIAL (FIVE THOUSAND) SUBCUT SCH (22:59)
[2017-07-31] MEDS ORDERED: NS 0.9% 1000 ML* 500 ML IV ONE (23:30)
[2017-08-01] MEDS: NS 0.9% 1000 ML* 1,000 ML IV SCH ×2 (00:26→03:04)
[2017-08-01] MEDS ORDERED: NS 0.9% 500 ML* 500 ML IV ONE (01:00)
[2017-08-01] MEDS ORDERED: NS 0.9% 1000 ML* 1,000 ML IV ONE (02:00)
[2017-08-01] MEDS: Diazepam TAB(*) 10 MG PO SCH ×2 (03:55→03:57)
[2017-08-01] MEDS: Heparin VIAL(*) 5000 UNITS/ML VIAL (FIVE THOUSAND) SUBCUT SCH (05:09)
[2017-08-01 05:40] LABS: ABS Basophils 0 10^3/ul (0-0.2); ABS Eosinophils 0.2 10^3/ul (0-0.6); ABS Lymphocytes 1.5 10^3/ul (1.0-4.8); ABS Monocytes 0.6 10^3/ul (0-0.8); ABS Neutrophils 2.8 10^3/ul (1.5-7.7); ABS Nucleated RBC 0 10^3/ul; Eosinophil % 3.4 % (0-6); Hematocrit 36 % (42-52); Hemoglobin 12.3 g/dl (14.0-18.0); Lymphocyte % 29.8 % (25-47); Mean Corpuscular HGB Conc 34 g/dl (31-36); Mean Corpuscular Hemoglobin 31 pg (27-31); Mean Corpuscular Volume 90 fL (80-94); Mean Platelet Volume 7 um3 (7.4-10.4); Nucleated Red Blood Cells % 0.1; Platelet Count 169 10^3/ul (150-450); Red Blood Count 3.97 10^6/ul (4.0-5.4); Red Cell Distribution Width 15 % (10.5-15); White Blood Count 5.1 10^3/ul (3.5-10.8)
[2017-08-01 05:56] LABS: EGFR Non-African American 96.6 (>60)
[2017-08-01] MEDS: Mometasone/Formoter 200/5 MDI INH SCH (07:43)
[2017-08-01] MEDS ORDERED: Aspirin EC Low Dose* 81 MG TAB.EC PO SCH (09:00)
[2017-08-01] MEDS ORDERED: Divalproex ER TAB(*) 500 MG PO SCH (09:00)
[2017-08-01] MEDS ORDERED: Multivitamins/Minerals TAB PO SCH (09:00)
[2017-08-01] MEDS ORDERED: Sertraline* 100 MG TAB PO SCH (09:00)
[2017-08-01] MEDS ORDERED: Thiamine TAB* 100 MG TAB PO SCH (09:00)
[2017-08-01] MEDS ORDERED: Diltiazem CD CAP* 240 MG PO SCH (09:00)
[2017-08-01] MEDS ORDERED: Folic Acid TAB* 1 MG PO SCH (09:00)
[2017-08-01] MEDS: Metoprolol Tartrate TAB* 25 MG PO SCH (09:44)
[2017-08-01] MEDS: levETIRAcetam TAB* 500 MG PO SCH (09:44)
[2017-08-01] MEDS: Gabapentin CAP(*) 300 MG PO SCH (09:45)
[2017-08-01] MEDS: Cilostazol TAB* 100 MG PO SCH (09:45)
--- NOTE | 2017-08-01 10:34 | PN ---
Subjective Date of Service: 08/01/17 Interval History: Pt feels better and wants to go home. Ambulated independently but appeared to be occasionally unsteady still on diazepam taper Objective Active Medications: Acetaminophen (Tylenol Tab*) 650 mg PO Q6H PRN PRN Reason: FEVER/PAIN Albuterol/Ipratropium (Duoneb (Albuterol 2.5 Mg/Ipratropium 0.5 Mg)) 1 neb INH Q4H PRN PRN Reason: SOB/WHEEZING Aspirin (Aspirin Ec Low Dose*) 81 mg PO DAILY [facility] Last Admin: 08/01/17 09:45 Dose: 81 mg Cilostazol (Pletal Tab*) 100 mg PO BID [facility] Last Admin: 08/01/17 09:45 Dose: 100 mg Digoxin (Lanoxin Tab*) 0.25 mg PO DAILY@1700 [facility] Diltiazem HCl (Cardizem Cd Cap*) 240 mg PO DAILY [facility] Last Admin: 08/01/17 09:45 Dose: 240 mg Divalproex Sodium (Depakote Er Tab(*)) 1,500 mg PO QAM [facility] Last Admin: 08/01/17 09:44 Dose: 1,500 mg Folic Acid (Folvite Tab*) 1 mg PO DAILY [facility] Last Admin: 08/01/17 09:44 Dose: 1 mg Gabapentin (Neurontin Cap(*)) 600 mg PO BID [facility] Last Admin: 08/01/17 09:45 Dose: 600 mg Heparin Sodium (Porcine) (Heparin Vial(*)) 5,000 units SUBCUT Q8HR [facility] Last Admin: 08/01/17 05:09 Dose: 5,000 units Sodium Chloride (Ns 0.9% 1000 Ml*) 1,000 mls @ 125 mls/hr IV PER RATE [facility] Last Admin: 08/01/17 03:04 Dose: 125 mls/hr Levetiracetam (Keppra Tab*) 500 mg PO BID [facility] Last Admin: 08/01/17 09:44 Dose: 500 mg Lorazepam (Ativan Tab(*)) 0 - 6 mg PO .PER [facility] PROTOCOL ARIANNE PRN Reason: Protocol Last Admin: 08/01/17 06:29 Dose: 1 mg Metoprolol Tartrate (Lopressor Tab*) 25 mg PO DAILY [facility] Last Admin: 08/01/17 09:44 Dose: 25 mg Mometasone Furoate/Formoterol Fumar (Dulera 200/5 Mdi*) 2 puff INH BID [facility] Last Admin: 08/01/17 07:43 Dose: 2 puff Morphine Sulfate (Morphine Inj (Syringe)*) 2 mg IV Q4H PRN PRN Reason: PAIN Multivitamins/Minerals (Theragran/Minerals Tab*) 1 tab PO DAILY [facility] Last Admin: 08/01/17 09:44 Dose: 1 tab Sertraline HCl (Zoloft*) 100 mg PO DAILY [facility] Last Admin: 08/01/17 09:44 Dose: 100 mg Thiamine HCl (Vitamin B-1 Tab*) 100 mg PO DAILY [facility] Last Admin: 08/01/17 09:45 Dose: 100 mg Vital Signs - 8 hr 08/01/17 08/01/17 08/01/17 03:00 05:13 06:22 Temperature 98.3 F Pulse Rate 103 99 Respiratory 22 20 Rate Blood Pressure 116/59 100/59 104/62 (mmHg) O2 Sat by Pulse 92 Oximetry 08/01/17 08/01/17 08/01/17 06:29 07:25 09:08 Temperature 98.0 F 97.7 F Pulse Rate 104 79 Respiratory 20 18 16 Rate Blood Pressure 130/68 131/86 (mmHg) O2 Sat by Pulse 93 92 Oximetry 08/01/17 08/01/17 09:31 09:45 Temperature Pulse Rate Respiratory 18 18 Rate Blood Pressure (mmHg) O2 Sat by Pulse Oximetry Oxygen Devices in Use Now: None Appearance: 62 yo M in nAD, AAOx3 Eyes: No Scleral Icterus, PERRLA Ears/Nose/Mouth/Throat: NL Teeth, Lips, Gums, Mucous Membranes Moist Neck: NL Appearance and Movements; NL JVP, Trachea Midline Respiratory: Symmetrical Chest Expansion and Respiratory Effort, - - scant b/l mid lung wheezing Cardiovascular: NL Sounds; No Murmurs; No JVD, RRR Abdominal: NL Sounds; No Tenderness; No Distention Lymphatic: No Cervical Adenopathy Extremities: No Edema, No Clubbing, Cyanosis, - - poorly palpable pedal pulses b /l Skin: No Rash or Ulcers, No Nodules or Sclerosis Neurological: Alert and Oriented x 3, NL Muscle Strength and Tone, - - mild tremor in b/l UE's noted Result Diagrams: 08/01/17 05:18 08/01/17 05:18 Assess/Plan/Problems-Billing Assessment: 62 yo M with h/o seizure disorder, alcoholism, a. fib present after a seizure, run out of Keppra - Patient Problems (1) History of atrial fibrillation Comment: persistent, rate controlled, not anticoagulated, suspect due to h/o alcoholism and seizures cont Digoxin, lopressor, Cardizem (2) Seizure disorder Comment: Cont Valproic acid and Keppra Continue seizure precautions. h/o med nonadherence (3) Alcohol abuse Comment: cont WAM, mild withdrawal symptoms noted cont scheduled diazepam taper SW consulted (4) Hyponatremia Comment: resolving with IVF. H/o SIADH , this time appears to be related to hypovolemia (5) COPD (chronic obstructive pulmonary disease) Comment: cont Dulera, mild wheezing noted (6) PAD (peripheral artery disease) Comment: chronic, cnt Pletal (7) DVT prophylaxis Comment: heparin sc Status and Disposition: OBV, but still in withdrawal and on diazepam taper. will place on inpatient
[2017-08-01 13:36] VITALS: BP 122/108
[2017-08-01] MEDS ORDERED: Digoxin TAB* 0.25 MG PO SCH (17:00)
[2017-08-01] MEDS ORDERED: Diazepam TAB(*) 5 MG PO SCH (20:00)
--- NOTE | 2017-08-02 02:42 | DS ---
CC: Dr. Louie Lewis * SHORT DISCHARGE SUMMARY: DATE OF ADMISSION: 07/31/17 DATE OF LEAVING AGAINST MEDICAL ADVICE: 08/01/17 PRIMARY CARE PHYSICIAN: Dr. Louie Lewis. DISCHARGE DIAGNOSES: 1. Seizure likely due to medication noncompliance. 2. Alcohol abuse with mild withdrawal symptoms. HOSPITALIZATION COURSE: Cristhian Cortez is a 62-year-old male who was about to get his Keppra from a pharmacy when a block away he had a generalized seizure. The patient has a history of seizure disorder, but also history of alcohol abuse. When presented to the emergency department for evaluation, he was mildly postictal, but he also started withdrawing from alcohol. On the day of patient's leaving against medical advice, he still was on volume taper for seizure prophylaxis since it was uncertain if his seizure was just precipitated by medication noncompliance or was it also related to this that the patient's alcohol level was 0 at presentation and he has a history of alcoholism. Nevertheless, the patient was still mildly tremorous, although steady on his feet. It was recommended for the patient to stay another day for observation and benzodiazepine taper. The patient refused and requested to leave against medical advice. The patient was alert and oriented at the time of signing documentation and left in the mid day on 08/01/17. [id number]/[facility] #: [id number] [facility] CENTERMaria C
== END 2017-08-01 14:45 | disposition left against medical advice (07) ==
LOC: ED 12:57 → MED 17:52
PROVIDERS: ADMIT Internal Medicine; ATTEND Internal Medicine
DX: G40.909 Epilepsy, unspecified, not intractable, without status epilepticus (principal); F10.10 Alcohol abuse, uncomplicated; Z86.79 Personal history of other diseases of the circulatory system; E87.1 Hypo-osmolality and hyponatremia; J44.9 Chronic obstructive pulmonary disease, unspecified; I73.9 Peripheral vascular disease, unspecified; Z79.82 Long term (current) use of aspirin; Z86.59 Personal history of other mental and behavioral disorders
CPT/HCPCS: 36415; 80053; 80162; 80164; 80320; 81003; 83605; 83735; 85025; 85610; 93005; 94640; 96365; 96375; 99283; 99406; A9270-GY; G0378; G0480; J1644; J2060; J3411

== ENCOUNTER 2017-08-16 10:58 | Emergency (ER) | payer MEDICARE, MEDICAID ==
[2017-08-16] MEDS ORDERED: Thiamine IV* 100 MG, Folic Acid IV* 1 MG, Multiple Vitamin IV ADULT* 10 ML in NS 0.9% 1... IV ONE (11:09)
[2017-08-16 11:40] LABS: ABS Basophils 0.1 10^3/ul (0-0.2); ABS Eosinophils 0.2 10^3/ul (0-0.6); ABS Monocytes 0.9 10^3/ul (0-0.8); ABS Neutrophils 4.4 10^3/ul (1.5-7.7); ABS Nucleated RBC 0 10^3/ul; Hematocrit 46 % (42-52); Hemoglobin 15.5 g/dl (14.0-18.0); Lymphocyte % 26.7 % (25-47); Mean Corpuscular HGB Conc 34 g/dl (31-36); Mean Corpuscular Hemoglobin 30 pg (27-31); Mean Corpuscular Volume 90 fL (80-94); Mean Platelet Volume 7 um3 (7.4-10.4); Nucleated Red Blood Cells % 0.1; Platelet Count 283 10^3/ul (150-450); Red Blood Count 5.09 10^6/ul (4.0-5.4); Red Cell Distribution Width 16 % (10.5-15); White Blood Count 7.5 10^3/ul (3.5-10.8)
[2017-08-16] MEDS ORDERED: Metoprolol Tartrate TAB* 25 MG PO ONE (11:55)
[2017-08-16 11:57] LABS: EGFR Non-African American 74.9 (>60)
--- NOTE | 2017-08-16 13:14 | RAD ---
INDICATION: Rapid atrial fibrillation. COMPARISON: Comparison is made with a prior chest x-ray study from September 17, 2016. TECHNIQUE: AP and lateral views of the chest were obtained. FINDINGS: The patient is status post cardiac valve surgery. The heart is within normal limits in size. There is a dual-chamber transvenous pacemaker present. The lungs are slightly underinflated. There is a linear density at the right lung base most consistent with atelectasis. The lungs are otherwise clear. No pleural effusion is seen. There is flattening of the diaphragms consistent with chronic obstructive pulmonary disease. IMPRESSION: 1. FINDINGS SUGGESTIVE OF COPD, NO EVIDENCE FOR ACUTE FINDING. 2. POSTSURGICAL CHANGES AND PACEMAKER NOTED.
[2017-08-16 16:00] VITALS: BP 139/74
--- NOTE | 2017-08-25 19:56 | ED ---
Dima Meade Jennifer, scribed for John Morin MD on 08/16/17 at 1117 . Substance Abuse/Use - HPI Summary HPI Summary: The patient is a 62 year old male who was found unconscious in the snow this morning. The patient does not remember being unconscious. He has a history of alcohol abuse and reports he drinks a six-pack a day during the middle of the day. The patient currently takes Keppra every day for seizures from alcohol withdrawal. He denies shortness of breath in the ED but says he would be short of breath if he were moving. He additionally uses marijuana and reports living alone. The patient did not know he was in the ED today. - History Of Current Complaint Stated Complaint: DETOX Time Seen by Provider: 08/16/17 11:01 Hx Obtained From: Patient Ingestion History: Type/Name Of Drug - Alcohol Overdose Characteristics: Oral Timing Of Abuse: Daily - Drinks a 6-pack a day Severity Initially: Mild Severity Currently: Mild Aggravating Factor(s): Nothing Alleviating Factor(s): Nothing Associated Signs And Symptoms: Seizure - Allergies/Home Medications Allergies/Adverse Reactions: Allergies Allergy/AdvReac Type Severity Reaction Status Date / Time No Known Allergies Allergy Verified 07/03/17 14:51 PMH/Surg Hx/FS Hx/Imm Hx Endocrine/Hematology History: Reports: Hx Anticoagulant Therapy Denies: Hx Diabetes, Hx Thyroid Disease Cardiovascular History: Reports: Hx Hypertension, Hx Pacemaker/ICD, Hx Peripheral Vascular Disease, Hx Valvular Heart Disease - Recent valve replacement surgery, Other Cardiovascular Problems/Disorders - Hx Atrial Fibrillation and was treatment with Warfarin which has been d/c'd Respiratory History: Reports: Hx Chronic Bronchitis, Hx Chronic Obstructive Pulmonary Disease (COPD), Other Respiratory Problems/Disorders - poss aspiration Denies: Hx Asthma History: Denies: Hx Renal Disease Musculoskeletal History: Denies: Hx Arthritis, Hx Osteoporosis Sensory History: Reports: Hx Cataracts, Hx Contacts or Glasses Denies: Hx Hearing Aid Opthamlomology History: Reports: Hx Cataracts, Hx Contacts or Glasses Neurological History: Reports: Hx Seizures, Other Neuro Impairments/Disorders - PERIPHERAL NEUROPATHY Denies: Hx Dementia Psychiatric History: Reports: Hx Anxiety, Hx Depression, Hx Panic Disorder, Hx Post Traumatic Stress Disorder, Hx Inpatient Treatment, Hx Community Mental Health Tx, Hx Bipolar Disorder, Hx Suicide Attempt, Hx Substance Abuse, Other Psychiatric Issues/Disorders - has had ECT treatment Denies: Hx Eating Disorder, Hx Schizophrenia, Hx of Violent Episodes Against Others - Surgical History Surgery Procedure, Year, and Place: cataracts removed. Hx Hernia Repair. AORTIC VALVE REPLACEMENT. PACEMAKER - Immunization History Date of Tetanus Vaccine: PT STATES UNSURE Date of Influenza Vaccine: NONE Infectious Disease History: Reports: Hx Tuberculosis - hx of inactive TB Denies: Hx Clostridium Difficile, Hx Hepatitis, Hx Human Immunodeficiency Virus (HIV), Hx of Known/Suspected MRSA, Hx Shingles, Hx Known/Suspected VRE, Hx Known/Suspected VRSA, History Other Infectious Disease - Family History Known Family History: Positive: Other - Mother -- depression, Father -- EtOH abuse - Social History Alcohol Use: Daily Alcohol Amount: REPORTS BEER WITH DINNER TONIGHT Hx Substance Use: Yes Substance Use Type: Reports: Marijuana Substance Use Comment - Amount & Last Used: last weekend Hx Tobacco Use: Yes Smoking Status (MU): Heavy Every Day Tobacco Smoker Type: Cigarettes Amount Used/How Often: 1/2 PPD Length of Time of Smoking/Using Tobacco: 40 YRS Have You Smoked in the Last Year: Yes Review of Systems Negative: Shortness Of Breath Neurological: Other - Seizure, amnesia All Other Systems Reviewed And Are Negative: Yes Physical Exam - Summary Physical Exam Summary: Appearance: Well-appearing, Well-nourished Skin: Warm, Dry, No rash Eyes: Normal, PERRL, EOMI, sclera anicteric ENT: Normal Neck: Supple, nontender Respiratory: Clear to auscultation Cardiovascular: S1, S2, no murmur, no rub, no gallop. Rapid afib with irregularly irregular rhythm. Abdomen: Soft, nontender, no organomegaly Bowel sounds: Present Musculoskeletal: Normal, Strength/ROM Intact, no edema, pulses symmetrical. Motor 5/5. No asterixis. Neurological: Normal, A&Ox3 but didn't know he was in the ED, cranial nerves II- XII WNL, follows commands, gait not tested, sensation intact to pin and light touch, no protonated drift, no tremor. Psychiatric: affect normal, behavior appropriate, dressed appropriately, judgment intact. Triage Information Reviewed: Yes Vital Signs Reviewed: Yes Diagnostics - Laboratory Result Diagrams: 08/16/17 11:28 08/16/17 11:28 Lab Statement: Any lab studies that have been ordered have been reviewed, and results considered in the medical decision making process. - Radiology CXR Xray Interpretation: No Acute Changes - 1. FINDINGS SUGGESTIVE OF COPD, NO EVIDENCE FOR ACUTE FINDING. 2. POSTSURGICAL CHANGES AND PACEMAKER NOTED. Dr. Morin has reviewed this report. Radiology Interpretation Completed By: Radiologist - EKG 11:17 EKG Rhythm: Atrial Fibrillation - Rapid ventricular response. EKG Interpretation: Incomplete RBBB. ST T wave changes consistent w/ ischemia vs. digi effect. Course/Dx - Course Assessment/Plan: In the ED course the patient was given thiamin, folic acid, multiple vitamin IV, and Metoprolol. Alcohol lab, comprehensive metabolic panel , and digoxin level were obtained. CXR and EKG were obtained. The patient is diagnosed with chronic alcohol abuse and rapid atrial fibrillation. The patient is instructed to follow up with primary care. - Diagnoses Provider Diagnoses: Rapid atrial fibrillation, Chronic alcohol abuse Discharge - Discharge Plan Condition: Stable Disposition: HOME Patient Education Materials: A-fib (Atrial Fibrillation) (ED), Alcohol Use Disorder (ED) Referrals: Louie Lewis MD [Primary Care Provider] - 3 Days Additional Instructions: Follow up with your primary care physician in three days. RETURN TO THE EMERGENCY DEPARTMENT FOR CHANGING OR WORSENING SYMPTOMS. The documentation as recorded by the Dima fajardo Jennifer accurately reflects the service I personally performed and the decisions made by , John Morin MD.
== END 2017-08-16 15:58 | disposition home or self-care (01) ==
LOC: ED 10:58
DX: I48.91 Unspecified atrial fibrillation (principal); F10.10 Alcohol abuse, uncomplicated; Y90.9 Presence of alcohol in blood, level not specified; I45.10 Unspecified right bundle-branch block; Z95.4 Presence of other heart-valve replacement; Z95.0 Presence of cardiac pacemaker; Z79.01 Long term (current) use of anticoagulants; I10 Essential (primary) hypertension; I73.9 Peripheral vascular disease, unspecified; J44.9 Chronic obstructive pulmonary disease, unspecified
CPT/HCPCS: 36415; 71046; 80053; 80162; 80320; 85025; 93005; 96360; 99282; G0480; J3411

== ENCOUNTER 2017-08-21 14:58 | Emergency (ER) | payer MEDICARE, MEDICAID ==
[2017-08-21] MEDS ORDERED: Thiamine IV* 100 MG, Folic Acid IV* 1 MG, Multiple Vitamin IV ADULT* 10 ML in NS 0.9% 1... IV ONE (15:18)
[2017-08-21] MEDS ORDERED: LORazepam INJ* 2 MG/ML 1 ML VIAL IV PUSH ONE (15:21)
[2017-08-21] MEDS ORDERED: Folic Acid IV* 50 MG/10 ML VIAL ONE (15:25)
--- NOTE | 2017-08-21 15:52 | RAD ---
Indication: Seizure, fall. CT of the brain was performed without IV contrast. Ventricular structures are midline. No midline shift is noted. The extraction spaces are unremarkable. There is no evidence of intracranial mass or hemorrhage. No other high or low density lesions are identified. Mastoid air cells and paranasal sinuses are grossly unremarkable. When compared to previous exam of July 03, 2017 no significant change is noted. IMPRESSION: Atrophy. No intracranial mass or hemorrhage is identified.
[2017-08-21 16:32] LABS: Urine Appearance Cloudy; Urine Blood Negative (Negative); Urine Color Yellow; Urine Ketones Negative (Negative); Urine Protein 1+(30 mg/dL) (Negative); Urine Specific Gravity 1.011 (1.010-1.030); Urine Urobilinogen Negative (Negative)
--- NOTE | 2017-08-21 16:33 | RAD ---
HISTORY: Seizure COMPARISONS: August 16, 2017 VIEWS: 4: Frontal dual-energy and lateral views of the chest. FINDINGS: CARDIOMEDIASTINAL SILHOUETTE: The cardiomediastinal silhouette is normal. A prosthetic heart valve is noted. ADRIANNA: The adrianna are normal. PLEURA: The costophrenic angles are sharp. No pleural abnormalities are noted. LUNG PARENCHYMA: There is hyperinflation with flattening of the diaphragm and expansion of the AP diameter of the chest. ABDOMEN: The upper abdomen is clear. There is no subphrenic gas. BONES AND SOFT TISSUES: The patient is status post median sternotomy. OTHER: A left-sided pacemaker is noted. IMPRESSION: COPD. NO ACTIVE CARDIOPULMONARY DISEASE.
[2017-08-21 16:38] LABS: ABS Basophils 0 10^3/ul (0-0.2); ABS Eosinophils 0.1 10^3/ul (0-0.6); ABS Lymphocytes 1.1 10^3/ul (1.0-4.8); ABS Monocytes 0.6 10^3/ul (0-0.8); ABS Neutrophils 4.7 10^3/ul (1.5-7.7); ABS Nucleated RBC 0 10^3/ul; Eosinophil % 1.4 % (0-6); Hematocrit 41 % (42-52); Hemoglobin 14.2 g/dl (14.0-18.0); Lymphocyte % 16.5 % (25-47); Mean Corpuscular HGB Conc 35 g/dl (31-36); Mean Corpuscular Hemoglobin 31 pg (27-31); Mean Corpuscular Volume 89 fL (80-94); Mean Platelet Volume 8 um3 (7.4-10.4); Nucleated Red Blood Cells % 0.2; Platelet Count 244 10^3/ul (150-450); Red Blood Count 4.65 10^6/ul (4.0-5.4); Red Cell Distribution Width 15 % (10.5-15); White Blood Count 6.5 10^3/ul (3.5-10.8)
[2017-08-21 16:44] LABS: INR 0.91 (0.77-1.02)
[2017-08-21 17:04] LABS: EGFR Non-African American 90.1 (>60)
[2017-08-21] MEDS ORDERED: levETIRAcetam TAB* 500 MG PO ONE ×2 (17:27→18:02)
[2017-08-21] MEDS ORDERED: Folic Acid TAB* 1 MG PO ONE (18:03)
[2017-08-21] MEDS ORDERED: Thiamine TAB* 100 MG TAB PO ONE (18:03)
[2017-08-21 18:10] VITALS: BP 144/102
--- NOTE | 2017-08-22 18:27 | ED ---
Jim Meade Angela, scribed for Colten Quintero MD on 08/21/17 at 1509 . Neurological HPI - HPI Summary HPI Summary: This pt is a 62 y/o male presenting to [facility] via EMS for a witnessed seizure today. EMS reports the pt was downtown when a cyber security witnessed the seizure. EMS notes the seizure episode lasted approximately 3-4 minutes. Pt notes he did not take Keppra this morning. He last took Keppra yesteray, which he was prescribed to take 500 mg BID. He additionally states that he drinks alcohol daily, about 6 pack of beer per day. The last time he had alcohol today was at 13:30. EMS states the pt has left sided rib pain from prior fall 5 days ago. - History of Current Complaint Chief Complaint: EDSeizure Stated Complaint: SEIZURE Hx Obtained From: Patient, EMS Onset/Duration: Sudden Onset, Resolved Timing: Sudden Onset Current Severity: None Number of Seizures: 1 Character: Other: - seizure Episode Lasting: Seconds/Minutes - 3-4 min Syncope Location: All Extremities Seizure Character: Generalized Aggravating: Nothing Alleviating: Nothing Associated Signs and Symptoms: Positive: Seizure - Additional Pertinent History Primary Care Physician: [id number] - Allergy/Home Medications Allergies/Adverse Reactions: Allergies Allergy/AdvReac Type Severity Reaction Status Date / Time No Known Allergies Allergy Verified 07/03/17 14:51 Home Medications: Home Medications Divalproex ER TAB(*) [Depakote ER TAB(*)] 1,500 mg PO QAM 08/21/17 [History Confirmed 08/21/17] Levothyroxine TAB* [Synthroid 25 MCG TAB*] 25 mcg PO DAILY 08/21/17 [History Confirmed 08/21/17] Metoprolol Tartrate TAB* [Lopressor TAB*] 25 mg PO DAILY 08/21/17 [History Confirmed 08/21/17] hydrOXYzine PAMOATE CAP* [Vistaril CAP*] 50 mg PO Q6HR 08/21/17 [History Confirmed 08/21/17] PMH/Surg Hx/FS Hx/Imm Hx Endocrine/Hematology History: Reports: Hx Anticoagulant Therapy Denies: Hx Diabetes, Hx Thyroid Disease Cardiovascular History: Reports: Hx Hypertension, Hx Pacemaker/ICD, Hx Peripheral Vascular Disease, Hx Valvular Heart Disease - Recent valve replacement surgery, Other Cardiovascular Problems/Disorders - Hx Atrial Fibrillation and was treatment with Warfarin which has been d/c'd Respiratory History: Reports: Hx Chronic Bronchitis, Hx Chronic Obstructive Pulmonary Disease (COPD), Other Respiratory Problems/Disorders - poss aspiration Denies: Hx Asthma History: Denies: Hx Renal Disease Musculoskeletal History: Denies: Hx Arthritis, Hx Osteoporosis Sensory History: Reports: Hx Cataracts, Hx Contacts or Glasses Denies: Hx Hearing Aid Opthamlomology History: Reports: Hx Cataracts, Hx Contacts or Glasses Neurological History: Reports: Hx Seizures, Other Neuro Impairments/Disorders - PERIPHERAL NEUROPATHY Denies: Hx Dementia Psychiatric History: Reports: Hx Anxiety, Hx Depression, Hx Panic Disorder, Hx Post Traumatic Stress Disorder, Hx Inpatient Treatment, Hx Community Mental Health Tx, Hx Bipolar Disorder, Hx Suicide Attempt, Hx Substance Abuse, Other Psychiatric Issues/Disorders - has had ECT treatment Denies: Hx Eating Disorder, Hx Schizophrenia, Hx of Violent Episodes Against Others - Surgical History Surgery Procedure, Year, and Place: cataracts removed. Hx Hernia Repair. AORTIC VALVE REPLACEMENT. PACEMAKER - Immunization History Date of Tetanus Vaccine: PT STATES UNSURE Date of Influenza Vaccine: NONE Infectious Disease History: Reports: Hx Tuberculosis - hx of inactive TB Denies: Hx Clostridium Difficile, Hx Hepatitis, Hx Human Immunodeficiency Virus (HIV), Hx of Known/Suspected MRSA, Hx Shingles, Hx Known/Suspected VRE, Hx Known/Suspected VRSA, History Other Infectious Disease - Family History Known Family History: Positive: Other - Mother -- depression, Father -- EtOH abuse - Social History Alcohol Use: Daily Alcohol Amount: REPORTS BEER WITH DINNER TONIGHT Hx Substance Use: Yes Substance Use Type: Reports: Marijuana Substance Use Comment - Amount & Last Used: last weekend Hx Tobacco Use: Yes Smoking Status (MU): Heavy Every Day Tobacco Smoker Type: Cigarettes Amount Used/How Often: 1/2 PPD Length of Time of Smoking/Using Tobacco: 40 YRS Have You Smoked in the Last Year: Yes Review of Systems Negative: Fever, Chills Musculoskeletal: Other - left sided rib pain Neurological: Other - POS: seizure All Other Systems Reviewed And Are Negative: Yes Physical Exam - Summary Physical Exam Summary: VITAL SIGNS: Reviewed. GENERAL: Patient is a well-developed and nourished male who is lying comfortable in the stretcher. Patient is not in any acute respiratory distress. HEAD AND FACE: There is a hematoma on the right frontal area, that has been there fore the last couple of days. EYES: PERRLA, EOMI x 2, No injected conjunctiva, no nystagmus. EARS: Hearing grossly intact. Ear canals and tympanic membranes are within normal limits. MOUTH: Oropharynx within normal limits. No laceration on the tongue. NECK: Supple, trachea is midline, no adenopathy, no JVD, no carotid bruit, no c- spine tenderness, neck with full ROM. CHEST: Symmetric, no tenderness at palpation LUNGS: Clear to auscultation bilaterally. No wheezing or crackles. CVS: Regular rate and rhythm, S1 and S2 present, no murmurs or gallops appreciated. ABDOMEN: Soft, non-tender. No signs of distention. No rebound no guarding, and no masses palpated. Bowel sounds are normal. EXTREMITIES: FROM in all major joints, no edema, no cyanosis or clubbing. There is tenderness in the left rib cage area. NEURO: Alert and oriented x 3. No acute neurological deficits. Speech is normal and follows commands. SKIN: Dry and warm. GCS: 15 Triage Information Reviewed: Yes Vital Signs On Initial Exam: Initial Vitals Temp Pulse Resp BP Pulse Ox 97.6 F 101 18 142/106 99 08/21/17 15:00 08/21/17 15:00 08/21/17 15:00 08/21/17 15:00 08/21/17 15:00 Vital Signs Reviewed: Yes - [place] Coma Scale Best Eye Response: 4 - Spontaneous Best Motor Response: 6 - Obeys Commands Best Verbal Response: 5 - Oriented Coma Scale Total: 15 Diagnostics - Vital Signs Vital Signs Temp Pulse Resp BP Pulse Ox 08/21/17 18:05 98.4 F 109 18 144/102 99 08/21/17 17:30 88 133/103 97 08/21/17 17:19 172/108 08/21/17 17:13 47 98 08/21/17 17:00 90 170/107 97 08/21/17 16:51 60 141/109 98 08/21/17 16:30 72 176/157 98 08/21/17 16:16 159/93 08/21/17 16:07 79 100 08/21/17 16:03 37 162/114 87 08/21/17 15:30 80 173/88 99 02/13/18 15:27 24 08/21/17 15:09 87 99 08/21/17 15:00 97.6 F 101 18 142/106 99 - Laboratory Lab Results: Lab Results 08/21/17 08/21/17 08/21/17 Range/Units 16:06 16:20 16:20 WBC 6.5 (3.5-10.8) 10^3/ul RBC 4.65 (4.0-5.4) 10^6/ul Hgb 14.2 (14.0-18.0) g/dl Hct 41 L (42-52) % MCV 89 (80-94) fL MCH 31 (27-31) pg MCHC 35 (31-36) g/dl RDW 15 (10.5-15) % Plt Count 244 (150-450) 10^3/ul MPV 8 (7.4-10.4) um3 Neut % (Auto) 72.5 (38-83) % Lymph % (Auto) 16.5 L (25-47) % [place] % (Auto) 9.0 (1-9) % Eos % (Auto) 1.4 (0-6) % Baso % (Auto) 0.6 (0-2) % Absolute Neuts (auto) 4.7 (1.5-7.7) 10^3/ul Absolute Lymphs (auto) 1.1 (1.0-4.8) 10^3/ul Absolute Monos (auto) 0.6 (0-0.8) 10^3/ul Absolute Eos (auto) 0.1 (0-0.6) 10^3/ul Absolute Basos (auto) 0 (0-0.2) 10^3/ul Absolute Nucleated RBC 0 10^3/ul Nucleated RBC % 0.2 INR (Anticoag Therapy) (0.77-1.02) Sodium 127 L (133-145) mmol/L Potassium 5.1 H (3.5-5.0) mmol/L Chloride 96 L (101-111) mmol/L Carbon Dioxide 26 (22-32) mmol/L Anion Gap 5 (2-11) mmol/L BUN 10 (6-24) mg/dL Creatinine 0.86 (0.67-1.17) mg/dL Est GFR ( Amer) 115.9 (>60) Est GFR (Non-Af Amer) 90.1 (>60) BUN/Creatinine Ratio 11.6 (8-20) Glucose 81 (70-100) mg/dL Calcium 9.0 (8.6-10.3) mg/dL Magnesium 2.1 (1.9-2.7) mg/dL Total Bilirubin 0.40 (0.2-1.0) mg/dL AST 20 (13-39) U/L ALT 12 (7-52) U/L Alkaline Phosphatase 65 (34-104) U/L Total Creatine Kinase 68 (10-223) U/L Total Protein 7.1 (6.4-8.9) g/dL Albumin 3.9 (3.2-5.2) g/dL Globulin 3.2 (2-4) g/dL Albumin/Globulin Ratio 1.2 (1-3) TSH 6.17 H (0.34-5.60) mcIU/mL Urine Color Yellow Urine Appearance Cloudy Urine pH 5.0 (5-9) Ur Specific [place] 1.011 (1.010-1.030) Urine Protein 1+(30 mg/dl) H (Negative) Urine Ketones Negative (Negative) Urine Blood Negative (Negative) Urine Nitrate Negative (Negative) Urine Bilirubin Negative (Negative) Urine Urobilinogen Negative (Negative) Ur Leukocyte Esterase Negative (Negative) Urine WBC (Auto) Absent (Absent) Urine RBC (Auto) Absent (Absent) Urine Bacteria Absent (Absent) Hyaline Casts Present H (Absent) Urine Glucose Negative (Negative) Serum Alcohol < 10 (<10) mg/dL 08/21/17 Range/Units 16:20 WBC (3.5-10.8) 10^3/ul RBC (4.0-5.4) 10^6/ul Hgb (14.0-18.0) g/dl Hct (42-52) % MCV (80-94) fL MCH (27-31) pg MCHC (31-36) g/dl RDW (10.5-15) % Plt Count (150-450) 10^3/ul MPV (7.4-10.4) um3 Neut % (Auto) (38-83) % Lymph % (Auto) (25-47) % [place] % (Auto) (1-9) % Eos % (Auto) (0-6) % Baso % (Auto) (0-2) % Absolute Neuts (auto) (1.5-7.7) 10^3/ul Absolute Lymphs (auto) (1.0-4.8) 10^3/ul Absolute Monos (auto) (0-0.8) 10^3/ul Absolute Eos (auto) (0-0.6) 10^3/ul Absolute Basos (auto) (0-0.2) 10^3/ul Absolute Nucleated RBC 10^3/ul Nucleated RBC % INR (Anticoag Therapy) 0.91 (0.77-1.02) Sodium (133-145) mmol/L Potassium (3.5-5.0) mmol/L Chloride (101-111) mmol/L Carbon Dioxide (22-32) mmol/L Anion Gap (2-11) mmol/L BUN (6-24) mg/dL Creatinine (0.67-1.17) mg/dL Est GFR ( Amer) (>60) Est GFR (Non-Af Amer) (>60) BUN/Creatinine Ratio (8-20) Glucose (70-100) mg/dL Calcium (8.6-10.3) mg/dL Magnesium (1.9-2.7) mg/dL Total Bilirubin (0.2-1.0) mg/dL AST (13-39) U/L ALT (7-52) U/L Alkaline Phosphatase (34-104) U/L Total Creatine Kinase (10-223) U/L Total Protein (6.4-8.9) g/dL Albumin (3.2-5.2) g/dL Globulin (2-4) g/dL Albumin/Globulin Ratio (1-3) TSH (0.34-5.60) mcIU/mL Urine Color Urine Appearance Urine pH (5-9) Ur Specific [place] (1.010-1.030) Urine Protein (Negative) Urine Ketones (Negative) Urine Blood (Negative) Urine Nitrate (Negative) Urine Bilirubin (Negative) Urine Urobilinogen (Negative) Ur Leukocyte Esterase (Negative) Urine WBC (Auto) (Absent) Urine RBC (Auto) (Absent) Urine Bacteria (Absent) Hyaline Casts (Absent) Urine Glucose (Negative) Serum Alcohol (<10) mg/dL Result Diagrams: 08/21/17 16:20 02/13/18 16:20 Lab Statement: Any lab studies that have been ordered have been reviewed, and results considered in the medical decision making process. - Radiology Chest XR Xray Interpretation: Positive (See Comments) - IMPRESSION: COPD. No active cardiopulmonary disease. Dr. Quintero has reviewed this radiology report. Radiology Interpretation Completed By: Radiologist - CT Brain CT CT Interpretation: No Acute Changes - IMPRESSION: Atrophy. No intracranial mass or hemorrhage is identified. Dr. Quintero has reviewed this radiology report. CT Interpretation Completed By: Radiologist - EKG 15:39 Cardiac Rate: Tachycardia EKG Rhythm: Atrial Fibrillation - at 102 bpm EKG Interpretation: No ST elevation EKG Comparison: No Significant Change - unchanged from prior EKG on 08/16/17. Course/Dx - Course Assessment/Plan: This pt is a 62 y/o male presenting to [facility] via EMS for a witnessed seizure today. EMS reports the pt was downtown when a cyber security witnessed the seizure. EMS notes the seizure episode lasted approximately 3-4 minutes. Pt notes he did not take Keppra this morning. He last took Keppra yesteray, which he was prescribed to take 500 mg BID. He additionally states that he drinks alcohol daily, about 6 pack of beer per day. The last time he had alcohol today was at 13:30. EMS states the pt has left sided rib pain from prior fall 5 days ago. Test results without any significant abnormalities except for sodium of 127, potassium of 5.1, possibly secondary to dehydration, TSH of 6.17. Urinalysis is negative for UTI. Head CT: Atrophy. No intracranial mass or hemorrhage is identified. Chest XR: COPD. No active cardiopulmonary disease. In the ED course the pt was given Keppra since I believe he missed approximately 2 doses and therefore had a seizure. I discussed the pts case with Dr. Phillip, neurologist, who agrees he can be discharged home and follow up at his office. Pt is hemodynamically stable, alert and oriented x3. - Diagnoses Provider Diagnoses: Seizure - Physician Notifications Discussed Care Of Patient With: Tico Phillip Time Discussed With Above Provider: 18:01 Instructed by Provider To: Other - I discussed pt care with Dr. Phillip, neurologist, who agrees he can be discharged home and can follow up at his office. Discharge - Discharge Plan Condition: Stable Disposition: HOME Patient Education Materials: Recurrent Seizures in Adults (ED) Referrals: Louie Lewis MD [Primary Care Provider] - Tico Phillip MD [Medical Doctor] - 3 Days Additional Instructions: Please follow up with your primary care provider and Dr. Phillip, neurologist. RETURN TO THE ED FOR ANY WORSENING SYMPTOMS. The documentation as recorded by the Jim fajardo Angela accurately reflects the service I personally performed and the decisions made by , Colten Quintero MD.
== END 2017-08-21 18:05 | disposition home or self-care (01) ==
LOC: ED 14:58
DX: G40.909 Epilepsy, unspecified, not intractable, without status epilepticus (principal); R07.81 Pleurodynia; W19.XXXA Unspecified fall, initial encounter; Y92.9 Unspecified place or not applicable; J44.9 Chronic obstructive pulmonary disease, unspecified; F17.210 Nicotine dependence, cigarettes, uncomplicated
CPT/HCPCS: 36415; 70450; 71046; 80053; 80177; 80320; 81003; 81015; 82550; 83735; 84443; 85025; 85610; 93005; 96374; 96375; 99284; A9270-GY; G0480; J2060; J3411

== ENCOUNTER 2017-11-26 03:29 | Emergency (ER) | payer MEDICARE, MEDICAID ==
[2017-11-26 03:51] LABS: ABS Basophils 0 10^3/ul (0-0.2); ABS Eosinophils 0.1 10^3/ul (0-0.6); ABS Monocytes 0.7 10^3/ul (0-0.8); ABS Neutrophils 4.5 10^3/ul (1.5-7.7); ABS Nucleated RBC 0 10^3/ul; Eosinophil % 1.7 % (0-6); Hematocrit 41 % (42-52); Hemoglobin 14.4 g/dl (14.0-18.0); Lymphocyte % 15.9 % (25-47); Mean Corpuscular HGB Conc 35 g/dl (31-36); Mean Corpuscular Hemoglobin 32 pg (27-31); Mean Corpuscular Volume 90 fL (80-94); Mean Platelet Volume 8.1 um3 (7.4-10.4); Nucleated Red Blood Cells % 0; Platelet Count 134 10^3/ul (150-450); Red Cell Distribution Width 14 % (10.5-15); White Blood Count 6.4 10^3/ul (3.5-10.8)
[2017-11-26] MEDS ORDERED: Morphine VIAL* 10 MG/ML 1 ML VIAL IM ONE (04:05)
[2017-11-26] MEDS ORDERED: Morphine VIAL* 4 MG/ML VIAL (1 ml vial) IV ONE ×2 (04:06→04:09)
[2017-11-26 04:18] LABS: EGFR Non-African American 96.6 (>60)
--- NOTE | 2017-11-26 08:02 | RAD ---
HISTORY: Fall, neck pain COMPARISONS: August 20, 2016 TECHNIQUE: Multiple contiguous axial CT scans were obtained of the cervical spine without intravenous contrast, with coronal and sagittal multiplanar reformations. FINDINGS: BRAIN: The visualized brain is unremarkable CENTRAL CANAL: Evaluation of the central canal is limited on CT technique; however, there is no obvious canalicular mass or epidural hemorrhage. ALIGNMENT: There is trace anterolisthesis of C4 on C5. VERTEBRAL BODIES: There is multilevel lateral marginal osteophyte formation most pronounced at C5-C6 and C6-C7. JOINTS: There is uncovertebral and facet osteoarthritis. MUSCULATURE: Unremarkable INTERVERTEBRAL DISCS: There is diffuse loss of intervertebral disc height. AXIAL IMAGES: C2-C3: There is no osseous neural foraminal narrowing or central canal stenosis. C3-C4: There is no osseous neural foraminal narrowing or central canal stenosis. C4-C5: There is no osseous neural foraminal narrowing or central canal stenosis. C5-C6: There is moderate bilateral neural foraminal narrowing. There is no osseous central canal stenosis. C6-C7: There is moderate to severe bilateral neural foraminal narrowing. There is no osseous central canal stenosis. C7-T1: There is no osseous neural foraminal narrowing or central canal stenosis. SOFT TISSUES: The prevertebral fat stripe is preserved. There is calcification of the carotid bifurcations. OTHER: None. IMPRESSION: 1. DEGENERATIVE DISC DISEASE AND OSTEOARTHRITIS MOST PRONOUNCED AT C5-C6 AND C6-C7. 2. THERE IS NO ACUTE OSSEOUS INJURY TO THE CERVICAL SPINE
--- NOTE | 2017-11-26 08:06 | RAD ---
HISTORY: Fall, right posterior lower rib pain COMPARISONS: None relevant VIEWS: 6, Frontal view of the chest with frontal and oblique views of the right hemithorax. FINDINGS: There is a slightly displaced fracture of the right ninth rib. There is no appreciable pneumothorax. The patient is status post median sternotomy. A prosthetic heart valve is noted. A pacemaker is noted. IMPRESSION: SLIGHTLY DISPLACED FRACTURE OF THE RIGHT NINTH RIB, WITHOUT APPRECIABLE PNEUMOTHORAX.
[2017-11-26 10:22] VITALS: BP 136/92
--- NOTE | 2017-11-29 00:45 | ED ---
Rossi Meade Julia, scribed for Jorge Gomes MD on 11/26/17 at 0442 . Adult Trauma - HPI Summary HPI Summary: This patient is a 62 year old M BIBA to [facility] after falling prior to arrival. EMS reports patient is clearly intoxicated and smells of alcohol but is able to walk and is alert and oriented. Patient states he fell down a flight of stairs on 11/22/17 and has had mid back pain since then. Pain is aggravated by deep breaths. Pain is 7/10 in severity. Tonight he fell on a flat surface, exacerbating his original injuries. - History of Current Complaint Chief Complaint: EDTraumaMultiple Stated Complaint: FALL Time Seen by Provider: 11/26/17 03:31 Hx Obtained From: Patient Mechanism of Injury: Fall Ambulatory at the Scene: Yes Loss of Consciousness: unsure Onset/Duration: Started Days Ago Onset of Pain: Days Pain Intensity: 7 Pain Scale Used: 0-10 Numeric Location: Back Aggravating Factor(s): Deep Breaths Alleviating Factor(s): Nothing Related History: Similar Episode, Alcohol Abuse - Additional Pertinent History Primary Care Physician: [id number] - Allergy/Home Medications Allergies/Adverse Reactions: Allergies Allergy/AdvReac Type Severity Reaction Status Date / Time No Known Allergies Allergy Verified 07/03/17 14:51 Home Medications: Home Medications Gabapentin [Gabapentin] 3 tab PO DAILY 11/26/17 [History Confirmed 11/26/17] LORazepam [Lorazepam] 1 tab PO DAILY 11/26/17 [History Confirmed 11/26/17] Umeclidinium [place] [Incruse Ellipta] 1 puff INH DAILY 11/26/17 [History Confirmed 11/26/17] PMH/Surg Hx/FS Hx/Imm Hx Endocrine/Hematology History: Reports: Hx Anticoagulant Therapy Denies: Hx Diabetes, Hx Thyroid Disease Cardiovascular History: Reports: Hx Hypertension, Hx Pacemaker/ICD - [employer] -GUIANDANT - NOT MR SAFE/CONDITIONAL, Hx Peripheral Vascular Disease , Hx Valvular Heart Disease - Recent valve replacement surgery, Other Cardiovascular Problems/Disorders - Hx Atrial Fibrillation and was treatment with Warfarin which has been d/c'd Respiratory History: Reports: Hx Chronic Bronchitis, Hx Chronic Obstructive Pulmonary Disease (COPD), Other Respiratory Problems/Disorders - poss aspiration Denies: Hx Asthma History: Denies: Hx Renal Disease Musculoskeletal History: Denies: Hx Arthritis, Hx Osteoporosis Sensory History: Reports: Hx Cataracts, Hx Contacts or Glasses Denies: Hx Hearing Aid Opthamlomology History: Reports: Hx Cataracts, Hx Contacts or Glasses Neurological History: Reports: Hx Seizures, Other Neuro Impairments/Disorders - PERIPHERAL NEUROPATHY Denies: Hx Dementia Psychiatric History: Reports: Hx Anxiety, Hx Depression, Hx Panic Disorder, Hx Post Traumatic Stress Disorder, Hx Inpatient Treatment, Hx Community Mental Health Tx, Hx Bipolar Disorder, Hx Suicide Attempt, Hx Substance Abuse, Other Psychiatric Issues/Disorders - has had ECT treatment Denies: Hx Eating Disorder, Hx Schizophrenia, Hx of Violent Episodes Against Others - Surgical History Surgery Procedure, Year, and Place: cataracts removed. Hx Hernia Repair. AORTIC VALVE REPLACEMENT. PACEMAKER - Immunization History Date of Tetanus Vaccine: PT STATES UNSURE Date of Influenza Vaccine: NONE Infectious Disease History: No Infectious Disease History: Reports: Hx Tuberculosis - hx of inactive TB Denies: Hx Clostridium Difficile, Hx Hepatitis, Hx Human Immunodeficiency Virus (HIV), Hx of Known/Suspected MRSA, Hx Shingles, Hx Known/Suspected VRE, Hx Known/Suspected VRSA, History Other Infectious Disease, Traveled Outside the [place] in Last 30 Days - Family History Known Family History: Positive: Other - Mother -- depression, Father -- EtOH abuse - Social History Alcohol Use: Daily Alcohol Amount: REPORTS BEER WITH DINNER TONIGHT Hx Substance Use: Yes Substance Use Type: Reports: Marijuana Substance Use Comment - Amount & Last Used: last weekend Hx Tobacco Use: Yes Smoking Status (MU): Heavy Every Day Tobacco Smoker Type: Cigarettes Amount Used/How Often: 1/2 PPD Length of Time of Smoking/Using Tobacco: 40 YRS Have You Smoked in the Last Year: Yes Review of Systems Negative: Fever Positive: Myalgia - back pain All Other Systems Reviewed And Are Negative: Yes Physical Exam - Summary Physical Exam Summary: Appearance: Well-appearing, Well-nourished, lying in bed comfortably, appears intoxicated Skin: Warm, dry, no obvious rash Eyes: sclera anicteric, no conjunctiva pallor ENT: mucous membranes moist, pharynx appears normal Neck: Supple, nontender Respiratory: Clear to auscultation, no signs of respiratory distress Cardiovascular: Normal S1, S2. No murmurs. Normal distal pulses in tibial and radial bilaterally. Abdomen: Soft, nontender, normal active bowel sounds present Musculoskeletal:, Strength/ROM Intact, tenderness to palpation to R posterior lower ribs with associated bruising Neurological: A&Ox3, awake and alert, mentation is normal, speech is fluent and appropriate Psychiatric: affect is normal, does not appear anxious or depressed Triage Information Reviewed: Yes Vital Signs On Initial Exam: Initial Vitals Pulse BP Pulse Ox 88 161/92 96 11/26/17 03:29 11/26/17 03:29 11/26/17 03:29 Vital Signs Reviewed: Yes Diagnostics - Vital Signs Vital Signs Temp Pulse Resp BP Pulse Ox 11/26/17 04:10 16 11/26/17 04:00 88 93 11/26/17 03:58 87 138/94 94 11/26/17 03:39 87 96 11/26/17 03:33 98.9 F 97 16 161/92 97 11/26/17 03:29 88 161/92 96 - Laboratory Lab Results: Lab Results 11/26/17 11/26/17 Range/Units 03:36 03:36 WBC 6.4 (3.5-10.8) 10^3/ul RBC 4.50 (4.0-5.4) 10^6/ul Hgb 14.4 (14.0-18.0) g/dl Hct 41 L (42-52) % MCV 90 (80-94) fL MCH 32 H (27-31) pg MCHC 35 (31-36) g/dl RDW 14 (10.5-15) % Plt Count 134 L (150-450) 10^3/ul MPV 8.1 (7.4-10.4) um3 Neut % (Auto) 70.6 (38-83) % Lymph % (Auto) 15.9 L (25-47) % [place] % (Auto) 11.1 H (0-7) % Eos % (Auto) 1.7 (0-6) % Baso % (Auto) 0.7 (0-2) % Absolute Neuts (auto) 4.5 (1.5-7.7) 10^3/ul Absolute Lymphs (auto) 1.0 (1.0-4.8) 10^3/ul Absolute Monos (auto) 0.7 (0-0.8) 10^3/ul Absolute Eos (auto) 0.1 (0-0.6) 10^3/ul Absolute Basos (auto) 0 (0-0.2) 10^3/ul Absolute Nucleated RBC 0 10^3/ul Nucleated RBC % 0 Sodium 126 L (139-145) mmol/L Potassium 3.9 (3.5-5.0) mmol/L Chloride 93 L (101-111) mmol/L Carbon Dioxide 25 (22-32) mmol/L Anion Gap 8 (2-11) mmol/L BUN 7 (6-24) mg/dL Creatinine 0.81 (0.67-1.17) mg/dL Est GFR ( Amer) 124.2 (>60) Est GFR (Non-Af Amer) 96.6 (>60) BUN/Creatinine Ratio 8.6 (8-20) Glucose 110 H (70-100) mg/dL Calcium 9.4 (8.6-10.3) mg/dL Total Bilirubin 0.80 (0.2-1.0) mg/dL AST 20 (13-39) U/L ALT 16 (7-52) U/L Alkaline Phosphatase 77 (34-104) U/L Total Protein 6.9 (6.4-8.9) g/dL Albumin 3.8 (3.2-5.2) g/dL Globulin 3.1 (2-4) g/dL Albumin/Globulin Ratio 1.2 (1-3) Serum Alcohol Pending Result Diagrams: 11/26/17 03:36 11/26/17 03:36 Lab Statement: Any lab studies that have been ordered have been reviewed, and results considered in the medical decision making process. - Radiology Rib/Chest Radiology Interpretation Completed By: ED Physician - Minimally displaced 9th rib fracture. - CT C-Spine CT CT Interpretation Completed By: Radiologist - No fracture. Dr. Gomes has reviewed this report. Re-Evaluation - Re-Evaluation First Eval Re-Evaluation Time: 06:25 Comment: Pt is feeling better but is quite sedated from the morphine given earlier for pain and to facilitate getting imaging. He will need to be observed until more alert. Adult Trauma Course/Dx - Course Assessment/Plan: 62 y/o man who suffered a fall down stairs a few days ago, then another fall tonight. He is c/o neck pain with ROM but CT of the Cspine is negative for fx. He also had some posterior lower chest pain and has a right sided 9th rib fx. Whether this was suffered tonight or a couple of days ago is unclear. Labs are notable for moderate hyponatremia but this is chronic for him. - Diagnoses Provider Diagnoses: Rib fracture, Cervical strain, Chronic hyponatremia, Alcohol abuse Discharge - Sign-Out/Discharge Documenting (check all that apply): Sign-Out Patient Signing out patient TO: Colten Quintero - Discharge Plan Condition: Good Disposition: HOME Patient Education Materials: Rib Fracture (ED), Abuse of Alcohol (ED) Referrals: Louie Lewis MD [Primary Care Provider] - Additional Instructions: No alcohol while taking the pain medication. Make sure to do the coughing and deep breathing exercises frequently during the day. - Billing Disposition and Condition Condition: GOOD Disposition: HOME The documentation as recorded by the Rossi fajardo Julia accurately reflects the service I personally performed and the decisions made by me, Jorge Gmoes MD.
== END 2017-11-26 10:20 | disposition home or self-care (01) ==
LOC: ED 03:29
DX: F10.129 Alcohol abuse with intoxication, unspecified (principal); S22.31XA Fracture of one rib, right side, initial encounter for closed fracture; S16.1XXA Strain of muscle, fascia and tendon at neck level, initial encounter; W10.9XXA Fall (on) (from) unspecified stairs and steps, initial encounter; Y92.9 Unspecified place or not applicable; M50.323 Other cervical disc degeneration at C6-C7 level; M47.812 Spondylosis without myelopathy or radiculopathy, cervical region; F17.210 Nicotine dependence, cigarettes, uncomplicated
CPT/HCPCS: 36415; 72125; 80053; 80320; 85025; 96372; 96374; 99284; G0480; J2270

== ENCOUNTER 2017-12-01 02:46 | Emergency (ER) | payer MEDICARE, MEDICAID ==
[2017-12-01] MEDS ORDERED: Thiamine IV* 100 MG, Folic Acid IV* 1 MG, Multiple Vitamin IV ADULT* 10 ML in NS 0.9% 1... IV ONE (03:18)
[2017-12-01 03:37] LABS: ABS Basophils 0 10^3/ul (0-0.2); ABS Eosinophils 0.1 10^3/ul (0-0.6); ABS Lymphocytes 1.3 10^3/ul (1.0-4.8); ABS Monocytes 0.6 10^3/ul (0-0.8); ABS Neutrophils 2.8 10^3/ul (1.5-7.7); ABS Nucleated RBC 0 10^3/ul; Eosinophil % 1.7 % (0-6); Hematocrit 41 % (42-52); Hemoglobin 14.1 g/dl (14.0-18.0); Lymphocyte % 27.2 % (25-47); Mean Corpuscular HGB Conc 34 g/dl (31-36); Mean Corpuscular Hemoglobin 31 pg (27-31); Mean Corpuscular Volume 92 fL (80-94); Mean Platelet Volume 8.4 um3 (7.4-10.4); Nucleated Red Blood Cells % 0; Platelet Count 159 10^3/ul (150-450); Red Blood Count 4.53 10^6/ul (4.0-5.4); Red Cell Distribution Width 14 % (10.5-15); White Blood Count 4.8 10^3/ul (3.5-10.8)
[2017-12-01 04:22] LABS: Urine Appearance Clear; Urine Blood Negative (Negative); Urine Color Yellow; Urine Ketones Negative (Negative); Urine Protein Negative (Negative); Urine Specific Gravity 1.005 (1.010-1.030); Urine Urobilinogen Negative (Negative)
[2017-12-01] MEDS ORDERED: LORazepam INJ* 2 MG/ML 1 ML VIAL IV PUSH ONE (04:33)
[2017-12-01] MEDS ORDERED: LORazepam INJ* 2 MG/ML 1 ML VIAL ONE (04:35)
--- NOTE | 2017-12-01 06:28 | ED ---
Rosa Isela Meade Rebecca, scribed for Tesha Solomon MD on 12/01/17 at 0334 . Substance Abuse/Use - HPI Summary HPI Summary: Pt is a 62 y/o M BIBA accompanied by police who presents to ED with EtOH intoxication. Per EMS, the pt called them from the [facility] bathroom. Pt reports calling because he was unable to get himself off the floor. Confirms he was drinking alcohol tonight, stating he had 2 24 oz beers. When asked what happened tonight he stated "what happens every night" and stated that he drinks every day. Additionally c/o SIs. - History Of Current Complaint Chief Complaint: EDMentalHealth Stated Complaint: ETOH Time Seen by Provider: 12/01/17 02:59 Hx Obtained From: Patient, EMS Ingestion History: Type/Name Of Drug - EtOH Overdose Characteristics: Oral Timing Of Abuse: Daily Character: Stuporous Aggravating Factor(s): Nothing Alleviating Factor(s): Nothing Associated Signs And Symptoms: Other: - SIs - Allergies/Home Medications Allergies/Adverse Reactions: Allergies Allergy/AdvReac Type Severity Reaction Status Date / Time No Known Allergies Allergy Verified 07/03/17 14:51 PMH/Surg Hx/FS Hx/Imm Hx Endocrine/Hematology History: Reports: Hx Anticoagulant Therapy Denies: Hx Diabetes, Hx Thyroid Disease Cardiovascular History: Reports: Hx Hypertension, Hx Pacemaker/ICD - [employer] -[employer]ANDANT - NOT MR SAFE/CONDITIONAL, Hx Peripheral Vascular Disease , Hx Valvular Heart Disease - Recent valve replacement surgery, Other Cardiovascular Problems/Disorders - Hx Atrial Fibrillation and was treatment with Warfarin which has been d/c'd Respiratory History: Reports: Hx Chronic Bronchitis, Hx Chronic Obstructive Pulmonary Disease (COPD), Other Respiratory Problems/Disorders - poss aspiration Denies: Hx Asthma History: Denies: Hx Renal Disease Musculoskeletal History: Denies: Hx Arthritis, Hx Osteoporosis Sensory History: Reports: Hx Cataracts, Hx Contacts or Glasses Denies: Hx Hearing Aid Opthamlomology History: Reports: Hx Cataracts, Hx Contacts or Glasses Neurological History: Reports: Hx Seizures, Other Neuro Impairments/Disorders - PERIPHERAL NEUROPATHY Denies: Hx Dementia Psychiatric History: Reports: Hx Anxiety, Hx Depression, Hx Panic Disorder, Hx Post Traumatic Stress Disorder, Hx Inpatient Treatment, Hx Community Mental Health Tx, Hx Bipolar Disorder, Hx Suicide Attempt, Hx Substance Abuse, Other Psychiatric Issues/Disorders - has had ECT treatment Denies: Hx Eating Disorder, Hx Schizophrenia, Hx of Violent Episodes Against Others - Surgical History Surgery Procedure, Year, and Place: cataracts removed. Hx Hernia Repair. AORTIC VALVE REPLACEMENT. PACEMAKER - Immunization History Date of Tetanus Vaccine: PT STATES UNSURE Date of Influenza Vaccine: NONE Infectious Disease History: No Infectious Disease History: Reports: Hx Tuberculosis - hx of inactive TB Denies: Hx Clostridium Difficile, Hx Hepatitis, Hx Human Immunodeficiency Virus (HIV), Hx of Known/Suspected MRSA, Hx Shingles, Hx Known/Suspected VRE, Hx Known/Suspected VRSA, History Other Infectious Disease, Traveled Outside the [place] in Last 30 Days - Family History Known Family History: Positive: Other - Mother -- depression, Father -- EtOH abuse - Social History Alcohol Use: Daily Alcohol Amount: REPORTS BEER WITH DINNER TONIGHT Hx Substance Use: Yes Substance Use Type: Reports: Marijuana Substance Use Comment - Amount & Last Used: last weekend Hx Tobacco Use: Yes Smoking Status (MU): Heavy Every Day Tobacco Smoker Type: Cigarettes Amount Used/How Often: 1/2 PPD Length of Time of Smoking/Using Tobacco: 40 YRS Have You Smoked in the Last Year: Yes Review of Systems Positive: Other - EtOH intoxication Positive: Other - SIs All Other Systems Reviewed And Are Negative: Yes Physical Exam - Summary Physical Exam Summary: VITAL SIGNS: Reviewed. GENERAL: ~Patient is a well-developed and nourished male who is lying comfortable in the stretcher. Patient is not in any acute respiratory distress. Admits to drinking tonight HEAD AND FACE: No signs of trauma. No ecchymosis, hematomas or skull depressions. No sinus tenderness. EYES: PERRLA, EOMI x 2, No injected conjunctiva, no nystagmus. EARS: Hearing grossly intact. Ear canals and tympanic membranes are within normal limits. MOUTH: Oropharynx within normal limits. NECK: Supple, trachea is midline, no adenopathy, no JVD, no carotid bruit, no c- spine tenderness, neck with full ROM. CHEST: Symmetric, no tenderness at palpation LUNGS: Clear to auscultation bilaterally. No wheezing or crackles. CVS: Regular rate and rhythm, S1 and S2 present, no murmurs or gallops appreciated. ABDOMEN: Soft, non-tender. No signs of distention. No rebound no guarding, and no masses palpated. Bowel sounds are normal. EXTREMITIES: FROM in all major joints, no edema, no cyanosis or clubbing. Abrasion over the left knee. NEURO: Alert and oriented x 3, slow to answer questions. No acute neurological deficits. Speech is normal and follows commands. SKIN: Dry and warm Triage Information Reviewed: Yes Vital Signs On Initial Exam: Initial Vitals Pulse Pulse Ox 78 100 12/01/17 03:09 12/01/17 03:09 Vital Signs Reviewed: Yes Diagnostics - Vital Signs Vital Signs Temp Pulse Resp BP Pulse Ox 12/01/17 03:20 97.9 F 76 16 125/81 96 12/01/17 03:10 78 16 125/81 100 12/01/17 03:09 78 100 - Laboratory Result Diagrams: 12/01/17 03:27 12/01/17 03:27 Lab Statement: Any lab studies that have been ordered have been reviewed, and results considered in the medical decision making process. Course/Dx - Course Assessment/Plan: Pt is a 62 y/o M BIBA accompanied by police who presents to ED with EtOH intoxication. Per EMS, the pt called them from the [facility] bathroom. Pt reports calling because he was unable to get himself off the floor. Confirms he was drinking alcohol tonight, stating he had 2 24 oz beers. Additionally c/o SIs. Blood work and toxicology were done. Serum alcohol of 231. In the ED course , pt received ativan and vitamin B1. Pt will be signed out to Dr. Millard, pending dispo, awaiting EtOH metabolism and E medical clearance. - Diagnoses Provider Diagnoses: Alcohol intoxication, Depression, Chronic hyponatremia Discharge - Sign-Out/Discharge Documenting (check all that apply): Sign-Out Patient Signing out patient TO: Marvin Millard - Discharge Plan Condition: Stable Referrals: Louie Lewis MD [Primary Care Provider] - The documentation as recorded by the Rosa Isela fajardo Rebecca accurately reflects the service I personally performed and the decisions made by me, Tesha Solomon MD.
[2017-12-01] MEDS ORDERED: Ibuprofen TAB* 800 MG PO ONE (13:14)
--- NOTE | 2017-12-01 14:13 | ED ---
Moisés Meade Stephanie, montserrated for Marvin Millard on 12/01/17 at 1350 . Progress - Consult/PCP Time Called: 09:00 Course/Dx - Course Course Of Treatment: Mental Health Evaluation completed. Psych recommended discharge. - Diagnoses Provider Diagnoses: Alcohol intoxication, Depression Discharge - Sign-Out/Discharge Documenting (check all that apply): Discharge/Admit/Transfer - Discharge - Discharge Plan Condition: Stable Disposition: HOME Referrals: Louie Lewis MD [Primary Care Provider] - Additional Instructions: Return to the ED for any new or worsening symptoms. The documentation as recorded by the Moisés fajardo Stephanie accurately reflects the service I personally performed and the decisions made by Freeman jackson Emmanuel.
[2017-12-01 14:52] VITALS: BP 146/90
== END 2017-12-01 15:29 | disposition home or self-care (01) ==
LOC: ED 02:46
DX: F10.129 Alcohol abuse with intoxication, unspecified (principal); F32.9 Major depressive disorder, single episode, unspecified; Z79.01 Long term (current) use of anticoagulants; E87.1 Hypo-osmolality and hyponatremia; F17.210 Nicotine dependence, cigarettes, uncomplicated; Z95.4 Presence of other heart-valve replacement
CPT/HCPCS: 36415; 80053; 80307; 80320; 80329; 81003; 82550; 84443; 85025; 96365; 96375; 99285; A9270-GY; G0480; J2060; J3411

== ENCOUNTER 2018-01-08 15:59 | Inpatient (IN) | payer MEDICARE, MEDICAID ==
[2018-01-08] MEDS ORDERED: levETIRAcetam TAB* 500 MG PO ONE (16:29)
[2018-01-08 16:44] LABS: ABS Basophils 0.1 10^3/ul (0-0.2); ABS Eosinophils 0.2 10^3/ul (0-0.6); ABS Lymphocytes 1.3 10^3/ul (1.0-4.8); ABS Monocytes 0.6 10^3/ul (0-0.8); ABS Neutrophils 2.9 10^3/ul (1.5-7.7); ABS Nucleated RBC 0 10^3/ul; Eosinophil % 3.7 % (0-6); Hematocrit 40 % (42-52); Hemoglobin 14.2 g/dl (14.0-18.0); Lymphocyte % 25.9 % (25-47); Mean Corpuscular HGB Conc 35 g/dl (31-36); Mean Corpuscular Hemoglobin 32 pg (27-31); Mean Corpuscular Volume 91 fL (80-94); Mean Platelet Volume 8.2 um3 (7.4-10.4); Nucleated Red Blood Cells % 0.1; Platelet Count 189 10^3/ul (150-450); Red Blood Count 4.45 10^6/ul (4.00-5.40); Red Cell Distribution Width 14 % (10.5-15)
[2018-01-08 16:50] LABS: INR 0.94 (0.77-1.02)
[2018-01-08 16:51] LABS: Urine Appearance Clear; Urine Blood Negative (Negative); Urine Color Straw; Urine Ketones Negative (Negative); Urine Protein Negative (Negative); Urine Specific Gravity 1.004 (1.010-1.030); Urine Urobilinogen Negative (Negative)
[2018-01-08 17:00] LABS: EGFR Non-African American 79.4 (>60)
[2018-01-08] MEDS ORDERED: Acetaminophen TAB* 325 MG PO ONE (21:00)
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
[2018-01-08] MEDS ORDERED: LORazepam TAB(*) 1 MG ONE (22:28)
[2018-01-08] MEDS ORDERED: Nicotine GUM* 2 MG PO PRN (23:50)
[2018-01-08] MEDS ORDERED: Al Hydrox/Mg Hydrox/Simet LIQ* 30 ML UDC PO PRN (23:50)
[2018-01-08] MEDS ORDERED: Mouth Piece, Nicotine* 1 EACH CARTRIDGE INH SCH (23:50)
[2018-01-08] MEDS ORDERED: Nicotine Inhaler* 10 MG AMP INH PRN (23:50)
[2018-01-09] MEDS ORDERED: LORazepam TAB(*) 1 MG PO PRN (00:47)
[2018-01-09] MEDS: Acetaminophen TAB* 325 MG PO PRN ×2 (06:45→20:22)
[2018-01-09] MEDS: Divalproex ER TAB(*) 500 MG PO SCH (10:05)
[2018-01-09] MEDS: Aspirin EC TAB* 81 MG TAB.EC PO SCH (10:06)
[2018-01-09] MEDS: Metoprolol Succinate XL TAB* 25 MG PO SCH ×2 (10:06→20:07)
[2018-01-09] MEDS: levETIRAcetam TAB* 500 MG PO SCH ×3 (10:07→20:06)
[2018-01-09] MEDS: Vitamin THERAPEUTIC TAB PO SCH (10:08)
[2018-01-09] MEDS: Gabapentin CAP(*) 300 MG PO SCH ×2 (10:08→20:06)
[2018-01-09] MEDS: Diltiazem CD CAP* 120 MG PO SCH (10:13)
[2018-01-09] MEDS: Cilostazol TAB* 100 MG PO SCH ×2 (10:13→20:07)
[2018-01-09] MEDS: Folic Acid TAB* 1 MG PO SCH (10:15)
[2018-01-09] MEDS: Thiamine TAB* 100 MG TAB PO SCH (10:15)
[2018-01-09] MEDS: Umeclidin 62.5 MDI(NF) 1 INH MDI INH SCH (10:18)
[2018-01-09] MEDS: Fluticasone/Vilanterol MDI(NF) 100/25 MDI INH SCH (10:18)
[2018-01-09] MEDS: Nicotine PATCH 21 MG/24 HR* PATCH TRANSDERM SCH (12:49)
[2018-01-09] MEDS ORDERED: LORazepam TAB(*) 1 MG PO SCH (13:00)
--- NOTE | 2018-01-09 13:29 | RAD ---
INDICATION: Bilateral rib pain COMPARISON: December 03, 2017 TECHNIQUE: Multiple views of the ribs were obtained. FINDINGS: Bones: There is a mildly displaced, anterolateral, right ninth rib fracture There is no other evidence of acute rib fracture. LUNGS: The lungs are clear. There is no pneumothorax. Pleural spaces: There is no evidence of hemothorax. Other: The heart is normal in size. There are sternotomy. There is mitral valvular surgery. There is a cardiac pacemaker. IMPRESSION: MILDLY DISPLACED ANTERIOR RIGHT NINTH RIB FRACTURE, UNCHANGED. NO ACUTE FINDINGS.
[2018-01-09] MEDS: HYDROcodone/ACETAMIN 5-325 MG* 1 TAB PO PRN ×2 (14:43→20:27)
[2018-01-09] MEDS ORDERED: Digoxin TAB* 0.25 MG PO SCH (17:00)
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
[2018-01-09] MEDS ORDERED: Nicotine Patch Removal NOTE FOLLOW UP SCH (21:00)
[2018-01-10] MEDS: HYDROcodone/ACETAMIN 5-325 MG* 1 TAB PO PRN ×2 (02:36→08:42)
[2018-01-10] MEDS: Nicotine PATCH 21 MG/24 HR* PATCH TRANSDERM SCH (08:34)
[2018-01-10] MEDS: Metoprolol Succinate XL TAB* 25 MG PO SCH (08:35)
[2018-01-10] MEDS: Thiamine TAB* 100 MG TAB PO SCH (08:35)
[2018-01-10] MEDS: Gabapentin CAP(*) 300 MG PO SCH (08:35)
[2018-01-10] MEDS: Divalproex ER TAB(*) 500 MG PO SCH (08:36)
[2018-01-10] MEDS: Aspirin EC TAB* 81 MG TAB.EC PO SCH (08:36)
[2018-01-10] MEDS: Vitamin THERAPEUTIC TAB PO SCH (08:37)
[2018-01-10] MEDS: levETIRAcetam TAB* 500 MG PO SCH ×2 (08:37→13:44)
[2018-01-10] MEDS: Folic Acid TAB* 1 MG PO SCH (08:37)
[2018-01-10] MEDS: Cilostazol TAB* 100 MG PO SCH (08:39)
[2018-01-10] MEDS: Diltiazem CD CAP* 120 MG PO SCH (08:39)
[2018-01-10] MEDS: Fluticasone/Vilanterol MDI(NF) 100/25 MDI INH SCH (08:40)
[2018-01-10] MEDS: Umeclidin 62.5 MDI(NF) 1 INH MDI INH SCH (08:40)
[2018-01-10] MEDS ORDERED: chlorproMAZINE TAB* 100 MG PO PRN (10:22)
[2018-01-10 11:16] VITALS: BP 124/69
[2018-01-10] MEDS ORDERED: LEVETIRACETAM PO SCH (14:00)
[2018-01-10] MEDS ORDERED: Metoprolol Succinate XL TAB* 25 MG PO SCH (21:00)
[2018-01-10] MEDS ORDERED: Gabapentin TAB(NF) 600 MG PO SCH (21:00)
[2018-01-10] MEDS ORDERED: Cilostazol TAB* 100 MG PO SCH (21:00)
[2018-01-11] MEDS ORDERED: Fluticasone/Vilanterol MDI(NF) 100/25 MDI INH SCH (09:00)
[2018-01-11] MEDS ORDERED: Umeclidin 62.5 MDI(NF) 1 INH MDI INH SCH (09:00)
[2018-01-11] MEDS ORDERED: Divalproex ER TAB(*) 500 MG PO SCH (09:00)
[2018-01-11] MEDS ORDERED: Digoxin TAB* 0.25 MG PO SCH (09:00)
[2018-01-11] MEDS ORDERED: Aspirin EC TAB* 81 MG TAB.EC PO SCH (09:00)
[2018-01-11] MEDS ORDERED: Diltiazem CD CAP* 120 MG PO SCH (09:00)
[2018-01-11] MEDS ORDERED: Sertraline* 100 MG TAB PO SCH (09:00)
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
== END 2018-01-10 15:00 | disposition home or self-care (01) | DRG 885 ==
LOC: ED 15:59 → BSU 21:52
PROVIDERS: ADMIT Psychiatry & Neurology Psychiatry; ATTEND Psychiatry & Neurology Psychiatry
DX: F31.9 Bipolar disorder, unspecified (principal); R45.851 Suicidal ideations; S22.31XA Fracture of one rib, right side, initial encounter for closed fracture; R45.850 Homicidal ideations; I10 Essential (primary) hypertension; F17.210 Nicotine dependence, cigarettes, uncomplicated; Y90.2 Blood alcohol level of 40-59 mg/100 ml; G40.909 Epilepsy, unspecified, not intractable, without status epilepticus; F60.2 Antisocial personality disorder; I73.9 Peripheral vascular disease, unspecified; F10.20 Alcohol dependence, uncomplicated; F12.20 Cannabis dependence, uncomplicated; I48.91 Unspecified atrial fibrillation; J44.9 Chronic obstructive pulmonary disease, unspecified; G62.9 Polyneuropathy, unspecified; F41.0 Panic disorder [episodic paroxysmal anxiety]; F43.10 Post-traumatic stress disorder, unspecified; X58.XXXA Exposure to other specified factors, initial encounter; Y92.9 Unspecified place or not applicable; Z91.5 Personal history of self-harm; Z98.42 Cataract extraction status, left eye; Z98.41 Cataract extraction status, right eye; Z95.0 Presence of cardiac pacemaker; Z95.2 Presence of prosthetic heart valve; Z86.11 Personal history of tuberculosis; Z81.8 Family history of other mental and behavioral disorders; Z81.1 Family history of alcohol abuse and dependence; Z79.82 Long term (current) use of aspirin; Z91.81 History of falling
CPT/HCPCS: 36415; 71111; 80053; 80061; 80164; 80177; 80307; 80320; 80329; 81003; 83036; 84443; 85025; 85610; 93005; 99222; 99238; 99284; A9270-GY; G0480

== ENCOUNTER 2018-03-28 16:12 | Emergency (ER) | payer MEDICARE, MEDICAID ==
[2018-03-28] MEDS ORDERED: Haloperidol TAB* 5 MG PO ONE (17:21)
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
[2018-03-28] MEDS ORDERED: diPHENhydraMINE PO* 50 MG ONE (17:30)
[2018-03-28] MEDS ORDERED: LORazepam INJ* 2 MG/ML 1 ML VIAL ONE (17:30)
[2018-03-28] MEDS ORDERED: Haloperidol INJ IV/IM* 5 MG/ML AMP ONE (17:30)
[2018-03-28 18:01] LABS: ABS Basophils 0 10^3/ul (0-0.2); ABS Eosinophils 0.1 10^3/ul (0-0.6); ABS Lymphocytes 1.6 10^3/ul (1.0-4.8); ABS Neutrophils 4.5 10^3/ul (1.5-7.7); ABS Nucleated RBC 0 10^3/ul; Eosinophil % 1.9 % (0-6); Hematocrit 40 % (42-52); Hemoglobin 14.1 g/dl (14.0-18.0); Lymphocyte % 21.8 % (25-47); Mean Corpuscular HGB Conc 35 g/dl (31-36); Mean Corpuscular Hemoglobin 33 pg (27-31); Mean Corpuscular Volume 95 fL (80-94); Mean Platelet Volume 8.6 um3 (7.4-10.4); Nucleated Red Blood Cells % 0.1; Platelet Count 115 10^3/ul (150-450); Red Blood Count 4.23 10^6/ul (4.00-5.40); Red Cell Distribution Width 14 % (10.5-15); White Blood Count 7.3 10^3/ul (3.5-10.8)
[2018-03-28 18:25] LABS: EGFR Non-African American 93.6 (>60)
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
[2018-03-29 07:27] VITALS: BP 118/76
== END 2018-03-29 07:26 | disposition home or self-care (01) ==
LOC: ED 16:12
DX: F10.129 Alcohol abuse with intoxication, unspecified (principal); F17.210 Nicotine dependence, cigarettes, uncomplicated
CPT/HCPCS: 36415; 70450; 70486; 72125; 80053; 80320; 80329; 84443; 85025; 96374; 96375; 99285; A9270-GY; G0480; J1630; J2060

== ENCOUNTER 2018-04-12 11:41 | Emergency (ER) | payer MEDICARE, MEDICAID ==
--- NOTE | 2018-04-12 11:55 | ED ---
Psychiatric Complaint - HPI Summary HPI Summary: Patient is a 63 y/o M BIBA as 9.41. EMS and [employer] reports patient made threats of SI and HI. Patient is intoxicated. Level 5 caveat, patient is intoxicated. - History Of Current Complaint Chief Complaint: EDMentalHealth Time Seen by Provider: 04/12/18 11:42 Hx Obtained From: EMS Hx From Patient Unobtainable Due To: Other - Level 5 caveat, patient is intoxicated. Character: Angry Aggravating Factor(s): Alcohol Use Has Suicidal: Reports: Thoughts Has Homicidal: Reports: Thoughts - Allergies/Home Medications Allergies/Adverse Reactions: Allergies Allergy/AdvReac Type Severity Reaction Status Date / Time No Known Allergies Allergy Verified 01/08/18 16:25 Home Medications: Home Medications Diltiazem CD CAP* [Cardizem CD CAP*] 120 mg PO DAILY 04/12/18 [History Confirmed 04/12/18] PMH/Surg Hx/FS Hx/Imm Hx Endocrine/Hematology History: Reports: Hx Anticoagulant Therapy Denies: Hx Diabetes, Hx Thyroid Disease Cardiovascular History: Reports: Hx Hypertension, Hx Pacemaker/ICD - [employer] -GUIANDANT - NOT MR SAFE/CONDITIONAL, Hx Peripheral Vascular Disease , Hx Valvular Heart Disease - Recent valve replacement surgery, Other Cardiovascular Problems/Disorders - Hx Atrial Fibrillation and was treatment with Warfarin which has been d/c'd Respiratory History: Reports: Hx Chronic Bronchitis, Hx Chronic Obstructive Pulmonary Disease (COPD), Other Respiratory Problems/Disorders - poss aspiration Denies: Hx Asthma History: Reports: Other Problems/Disorders - History of SIADH Denies: Hx Renal Disease Musculoskeletal History: Reports: Other Musculoskeletal History - peripheral neuropathy Denies: Hx Arthritis, Hx Osteoporosis Sensory History: Reports: Hx Cataracts, Hx Contacts or Glasses Denies: Hx Hearing Aid Opthamlomology History: Reports: Hx Cataracts, Hx Contacts or Glasses Neurological History: Reports: Hx Seizures, Other Neuro Impairments/Disorders - PERIPHERAL NEUROPATHY Denies: Hx Dementia Psychiatric History: Reports: Hx Anxiety, Hx Depression, Hx Panic Disorder, Hx Post Traumatic Stress Disorder, Hx Inpatient Treatment, Hx Community Mental Health Tx, Hx Bipolar Disorder, Hx Suicide Attempt, Hx of Violent Episodes Against Others, Hx Substance Abuse, Other Psychiatric Issues/Disorders - has had ECT treatment Denies: Hx Eating Disorder, Hx Schizophrenia - Surgical History Surgery Procedure, Year, and Place: cataracts removed. Hx Hernia Repair. AORTIC VALVE REPLACEMENT. PACEMAKER - Immunization History Date of Tetanus Vaccine: PT STATES UNSURE Date of Influenza Vaccine: NONE Infectious Disease History: No Infectious Disease History: Reports: Hx Tuberculosis - hx of inactive TB Denies: Hx Clostridium Difficile, Hx Hepatitis, Hx Human Immunodeficiency Virus (HIV), Hx of Known/Suspected MRSA, Hx Shingles, Hx Known/Suspected VRE, Hx Known/Suspected VRSA, History Other Infectious Disease, Traveled Outside the [place] in Last 30 Days - Family History Known Family History: Positive: Other - Mother -- depression, Father -- EtOH abuse - Social History Alcohol Use: Daily Alcohol Amount: REPORTS BEER WITH DINNER TONIGHT Hx Substance Use: Yes Substance Use Type: Reports: Marijuana Substance Use Comment - Amount & Last Used: last weekend Hx Tobacco Use: Yes Smoking Status (MU): Heavy Every Day Tobacco Smoker Type: Cigarettes Amount Used/How Often: 1/2 PPD Length of Time of Smoking/Using Tobacco: 40 YRS Have You Smoked in the Last Year: Yes - Additional Comments History Additional Comments: Level 5 caveat, patient is intoxicated and uncooperative. Review of Systems Positive: Other - alcohol intoxication Positive: Other - SI, HI All Other Systems Reviewed And Are Negative: No - Comments Additional Review of Systems Comments: Level 5 caveat, patient is intoxicated. Physical Exam - Summary Physical Exam Summary: Appearance: The patient is well-nourished. Level 5 caveat, patient is intoxicated. Skin: The skin is warm and dry and skin color reflects adequate perfusion. HEENT: The head is normocephalic and atraumatic. The pupils are equal and reactive. The conjunctivae are clear and without drainage. Nares are patent and without drainage. Mouth reveals moist mucous membranes and the throat is without erythema and exudate. The external ears are intact. The ear canals are patent and without drainage. The tympanic membranes are intact. Neck: The neck is supple with full range of motion and non-tender. There are no carotid bruits. There is no neck vein distension. Respiratory: Chest is non-tender. Lungs are clear to auscultation and breath sounds are symmetrical and equal. Cardiovascular: Heart is regular rate and rhythm. There is no murmur or rub auscultated. There is no peripheral edema and pulses are symmetrical and equal. Abdomen: The abdomen is soft and non-tender. There are normal bowel sounds heard in all four quadrants and there is no organomegaly palpated. Musculoskeletal: There is no back tenderness noted. Extremities are non-tender with full range of motion. There is good capillary refill. There is no peripheral edema or calf tenderness elicited. Neurological: The patient has symmetrical motor strength in all four extremities. Cranial nerves are grossly intact. Deep tendon reflexes are symmetrical and equal in all four extremities. Triage Information Reviewed: Yes Vital Signs On Initial Exam: Initial Vitals Temp Pulse Resp BP Pulse Ox 98.0 F 106 16 132/87 98 04/12/18 11:43 04/12/18 11:43 04/12/18 11:43 04/12/18 11:43 04/12/18 11:43 Vital Signs Reviewed: Yes Diagnostics - Vital Signs Vital Signs Temp Pulse Resp BP Pulse Ox 04/12/18 11:43 98.0 F 106 16 132/87 98 - Laboratory Result Diagrams: 04/12/18 12:11 04/12/18 12:11 Lab Statement: Any lab studies that have been ordered have been reviewed, and results considered in the medical decision making process. Re-Evaluation - Re-Evaluation First Eval Re-Evaluation Time: 12:54 Change: Unchanged Comment: patient attempted to hit volunteer. Patient will be medicated. Course/Dx - Course Course Of Treatment: Mr. Cortez was brought in by the police obviously quite intoxicated. He was belligerent and threatening to the staff as well as the police that brought him in. Several attempts were made to placate him but eventually he had to be given medications to control his behavior. He then remained calm until about 2000 hrs. when he was clinically sober. He underwent a mental health eval and they felt he was safe for discharge. - Differential Dx/Clinical Impression Provider Diagnosis: Alcohol intoxication, Adjustment disorder with mixed disturbance of emotions and conduct - Physician Notifications Discussed Care Of Patient With: Deann Brooks Time Discussed With Above Provider: 20:23 Instructed by Provider To: Other - Dr. Brooks reviewed the patient's case at 2022. The patient will be discharged to home. Dr. Nam is agreeable with this plan. Discharge - Sign-Out/Discharge Documenting (check all that apply): Patient Departure - discharge - Discharge Plan Condition: Stable Disposition: HOME Patient Education Materials: Mood Disorders (ED), Abuse of Alcohol (ED) Referrals: Louie Lewis MD [Primary Care Provider] - - Billing Disposition and Condition Condition: STABLE Disposition: Home - Attestation Statements Document Initiated by Cristian: Yes Documenting Scribe: Austin Lynn Provider For Whom Cristian is Documenting (Include Credential): Jorge Nam MD Scribrakel Attestation: Austin Meade, scribed for Jorge Nam MD on 04/12/18 at 2125. Scribe Documentation Reviewed: Yes Provider Attestation: The documentation as recorded by the Austin fajardo accurately reflects the service I personally performed and the decisions made by me, Jorge Nam MD
[2018-04-12 12:23] LABS: ABS Basophils 0.1 10^3/ul (0-0.2); ABS Eosinophils 0.2 10^3/ul (0-0.6); ABS Lymphocytes 1.6 10^3/ul (1.0-4.8); ABS Monocytes 0.3 10^3/ul (0-0.8); ABS Nucleated RBC 0 10^3/ul; Eosinophil % 4.1 % (0-6); Hematocrit 41 % (42-52); Hemoglobin 14.1 g/dl (14.0-18.0); Lymphocyte % 38.7 % (25-47); Mean Corpuscular HGB Conc 34 g/dl (31-36); Mean Corpuscular Hemoglobin 33 pg (27-31); Mean Corpuscular Volume 96 fL (80-94); Mean Platelet Volume 6.9 um3 (7.4-10.4); Nucleated Red Blood Cells % 0.1; Platelet Count 279 10^3/ul (150-450); Red Blood Count 4.31 10^6/ul (4.00-5.40); Red Cell Distribution Width 15 % (10.5-15); White Blood Count 4.2 10^3/ul (3.5-10.8)
[2018-04-12] MEDS ORDERED: diPHENhydraMINE IV* 50 MG/ML 1 ml VIAL (BENADRYL) IM ONE (12:44)
[2018-04-12] MEDS ORDERED: LORazepam INJ* 2 MG/ML 1 ML VIAL IM ONE (12:44)
[2018-04-12] MEDS ORDERED: Haloperidol INJ IV/IM* 5 MG/ML AMP IM ONE (12:44)
--- OUTSIDE RECORDS SUMMARY | 2018-04-12 13:04 | XMS REPORT ---
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 128 mmol/L Low 133-145 Potassium 4.2 mmol/L 3.5-5.0 Chloride 97 mmol/L Low 101-111 Co2 Carbon Dioxide 20 mmol/L Low 22-32 Anion Gap 11 mmol/L 2-11 Glucose 94 mg/dL 70-100 Blood Urea Nitrogen 14 mg/dL 6-24 Creatinine 1.00 mg/dL 0.67-1.17 BUN/Creatinine Ratio 14.0 8-20 Calcium 9.4 mg/dL 8.6-10.3 Total Protein 6.7 g/dL 6.4-8.9 Albumin 3.6 g/dL 3.2-5.2 Globulin 3.1 g/dL 2-4 Albumin/Globulin Ratio 1.2 1-3 Total Bilirubin 0.40 mg/dL 0.2-1.0 Alkaline Phosphatase 55 U/L 34-104 Alt 10 U/L 7-52 Ast 14 U/L 13-39 Egfr Non- 75.7 >60 Egfr 97.4 >60 17 Laboratory test finding 07/31/2017 Magnesium 2.1 mg/dL 1.9-2.7 Alcohol < 10 mg/dL <10 Digoxin 0.3 ng/ml Low 0.8-2.0 Valproic Acid (Depakene) 32.0 g/mL Low 50-100 Comprehensive Metabolic Prof 07/25/2017 Sodium 133 mEq/L Low 134-149 18 Potassium 4.6 mEq/L 3.6-5.5 Chloride 102 mEq/L 94-112 Carbon Dioxide 26 mEq/L 21-32 Glucose 118 mg/dL High 70-105 19 BUN 12 mg/dL 6-26 Creatinine 0.8 mg/dL 0.6-1.4 BUN/Creat Ratio 15.0 CALC 8.0-36.0 Calcium 8.6 mg/dL 8.6-10.2 Total Protein 6.5 g/dL 6.4-8.3 Albumin 3.8 g/dL 3.8-5.5 Globulin 2.7 g/dL 2.0-4.8 A/G Ratio 1.4 CALC 0.6-2.3 Alk. Phosphatase 57 U/L 22-95 Alt (SGPT) 14 U/L 7-35 Ast (Sgot) 16 U/L 5-34 Total Bilirubin 0.3 mg/dL 0.2-1.3 GFR Non- >60 ml/min/1.73m^ >=60 GFR >60 ml/min/1.73m^ >=60 Laboratory test finding 07/04/2017 Ammonia, Plasma 63 g/dL 27-102 20 Inr/Protime 07/03/2017 Inr 1.04 High 0.77-1.02 21 Laboratory test finding 07/03/2017 Lactic Acid 0.9 mmol/L 0.5-2.0 22 Comp Metabolic Panel 07/03/2017 Sodium 121 mmol/L Low 133-145 Potassium 4.0 mmol/L 3.5-5.0 Chloride 86 mmol/L Low 101-111 Co2 Carbon Dioxide 28 mmol/L 22-32 Anion Gap 7 mmol/L 2-11 Glucose 92 mg/dL 70-100 Blood Urea Nitrogen 6 mg/dL 6-24 Creatinine 0.85 mg/dL 0.67-1.17 BUN/Creatinine Ratio 7.1 Low 8-20 Calcium 9.5 mg/dL 8.6-10.3 Total Protein 7.7 g/dL 6.4-8.9 Albumin 3.9 g/dL 3.2-5.2 Globulin 3.8 g/dL 2-4 Albumin/Globulin Ratio 1.0 1-3 Total Bilirubin 0.60 mg/dL 0.2-1.0 Alkaline Phosphatase 85 U/L 34-104 Alt 10 U/L 7-52 Ast 18 U/L 13-39 Egfr Non- 91.3 >60 Egfr 117.5 >60 23 Laboratory test finding 07/03/2017 C Reactive Protein 8.09 mg/L High < 5.00 24 Alcohol < 10 mg/dL <10 CBC Auto Diff 07/03/2017 White Blood Count 4.0 10^3/uL 3.5-10.8 Red Blood Count 5.04 10^6/uL 4.0-5.4 Hemoglobin 15.8 g/dL 14.0-18.0 Hematocrit 46 % 42-52 Mean Corpuscular Volume 90 fL 80-94 Mean Corpuscular Hemoglobin 31 pg 27-31 Mean Corpuscular HGB Conc 35 g/dL 31-36 Red Cell Distribution Width 16 % High 10.5-15 Platelet Count 168 10^3/uL 150-450 Mean Platelet Volume 7 um3 Low 7.4-10.4 Abs Neutrophils 1.9 10^3/uL 1.5-7.7 Abs Lymphocytes 1.4 10^3/uL 1.0-4.8 Abs Monocytes 0.6 10^3/uL 0-0.8 Abs Eosinophils 0.1 10^3/uL 0-0.6 Abs Basophils 0 10^3/uL 0-0.2 Abs Nucleated RBC 0.02 10^3/uL Granulocyte % 46.5 % 38-83 Lymphocyte % 34.3 % 25-47 Monocyte % 15.8 % High 1-9 Eosinophil % 2.6 % 0-6 Basophil % 0.8 % 0-2 Nucleated Red Blood Cells % 0.5 Laboratory test 07/03/2017 Erythrocyte Sed Rate 12 mm/Hr 0-20 finding Urine Drug SCR ED & 07/03/2017 Amphetamine Ur Screen None Detected None Detect Pain Clinic Barbiturates Urine Screen None Detected None Detect Benzodiazepine Urine Screen None Detected None Detect Urine Cannabinoids Screen Presumptive Posi <SEE NOTE> None Detect 25 Urine Cocaine Screen None Detected None Detect Urine Opiates Screen Presumptive Posi <SEE NOTE> None Detect 26 Urine Phencyclidine Screen None Detected None Detect 27 Laboratory test 07/03/2017 Carbon Monoxide 5.4 % High <4.0 finding Laboratory test 06/07/2017 Urine Culture And SEE RESULT 28 finding Sensitivities BELOW Urine Drug SCR ED 06/07/2017 Amphetamine Ur Screen None Detected None Detect & Pain Clinic Barbiturates Urine Screen None Detected None Detect Benzodiazepine Urine Screen None Detected None Detect Urine Cannabinoids Screen Presumptive Posi <SEE NOTE> None Detect 29 Urine Cocaine Screen None Detected None Detect Urine Opiates Screen Presumptive Posi <SEE NOTE> None Detect 30 Urine Phencyclidine Screen None Detected None Detect 31 Urinalysis Profile 06/07/2017 Urine Color Yellow Urine Appearance Clear Urine Specific [place] 1.012 1.010-1.030 Urine pH 5.0 5-9 Urine Urobilinogen Negative Negative Urine Ketones Negative Negative Urine Protein Negative Negative Urine Leukocytes Negative Negative Urine Blood Negative Negative Urine Nitrite Negative Negative Urine Bilirubin Negative Negative Urine Glucose Negative Negative Manual Differential 06/06/2017 Immature Granulocytes 7 % 0-9 Neutrophil % 53 % 38-83 Band % 5 % 0-8 Lymphocytes % 28 % 25-47 Monocytes % 9 % 0-13 Eosinophils % 2 % 0-6 Basophil % 1 % 0-2 Myelocytes % 2 % High 0-1 RBC Morphology Normal Normal Polychromasia 1+ Laboratory test finding 06/06/2017 Acetaminophen < 15 g/mL 32 Alcohol 35 mg/dL High <10 Salicylate < 2.50 mg/dL <30 TSH (Thyroid Stim Horm) 8.16 mcIU/mL High 0.34-5.60 Comp Metabolic Panel 06/06/2017 Sodium 130 mmol/L Low 133-145 Potassium 4.6 mmol/L 3.5-5.0 Chloride 97 mmol/L Low 101-111 Co2 Carbon Dioxide 23 mmol/L 22-32 Anion Gap 10 mmol/L 2-11 Glucose 84 mg/dL 70-100 Blood Urea Nitrogen 12 mg/dL 6-24 Creatinine 1.32 mg/dL High 0.67-1.17 BUN/Creatinine Ratio 9.1 8-20 Calcium 9.6 mg/dL 8.6-10.3 Total Protein 7.2 g/dL 6.4-8.9 Albumin 3.5 g/dL 3.2-5.2 Globulin 3.7 g/dL 2-4 Albumin/Globulin Ratio 0.9 Low 1-3 Total Bilirubin 0.60 mg/dL 0.2-1.0 Alkaline Phosphatase 79 U/L 34-104 Alt 14 U/L 7-52 Ast 22 U/L 13-39 Egfr Non- 55.0 >60 Egfr 70.7 >60 33 Inr/Protime 06/06/2017 Inr 1.06 0.89-1.11 CBC Auto Diff 06/06/2017 White Blood Count 5.6 10^3/uL 3.5-10.8 Red Blood Count 3.81 10^6/uL Low 4.0-5.4 Hemoglobin 11.8 g/dL Low 14.0-18.0 Hematocrit 36 % Low 42-52 Mean Corpuscular Volume 94 fL 80-94 Mean Corpuscular Hemoglobin 31 pg 27-31 Mean Corpuscular HGB Conc 33 g/dL 31-36 Red Cell Distribution Width 17 % High 10.5-15 Platelet Count 344 10^3/uL 150-450 Mean Platelet Volume 8 um3 7.4-10.4 Abs Neutrophils 3.9 10^3/uL 1.5-7.7 Abs Lymphocytes 1.0 10^3/uL 1.0-4.8 Abs Monocytes 0.5 10^3/uL 0-0.8 Abs Eosinophils 0.1 10^3/uL 0-0.6 Abs Basophils 0.1 10^3/uL 0-0.2 Abs Nucleated RBC 0.01 10^3/uL Granulocyte % 70.4 % 38-83 Lymphocyte % 18.5 % Low 25-47 Monocyte % 8.3 % 1-9 Eosinophil % 1.7 % 0-6 Basophil % 1.1 % 0-2 Nucleated Red Blood Cells % 0.1 Laboratory test finding 03/26/2017 Surgical Interface SEE RESULT BELOW 34 Order Comprehensive Metabolic 01/08/2017 Sodium 135 mEq/L 134-149 Prof Potassium 4.7 mEq/L 3.6-5.5 Chloride 94 mEq/L 94-112 Carbon Dioxide 27 mEq/L 21-32 Glucose 100 mg/dL 70-105 BUN 13 mg/dL 6-26 Creatinine 1.0 mg/dL 0.6-1.4 BUN/Creat Ratio 13.0 CALC 8.0-36.0 Calcium 9.3 mg/dL 8.6-10.2 Total Protein 6.7 g/dL 6.4-8.3 Albumin 4.3 g/dL 3.8-5.5 Globulin 2.4 g/dL 2.0-4.8 A/G Ratio 1.8 CALC 0.6-2.3 Alk. Phosphatase 78 U/L 22-95 Alt (SGPT) 26 U/L 7-35 Ast (Sgot) 32 U/L 5-34 Total Bilirubin 0.9 mg/dL 0.2-1.3 GFR Non- >60 ml/min/1.73m^ >=60 GFR >60 ml/min/1.73m^ >=60 Complete Blood Count 01/08/2017 WBC 6.5 x10^3/UL 3.6-9.6 RBC 4.65 x10^6/UL 3.90-5.70 HGB 16.0 g/dL 12.1-17.2 HCT 45 % 36-50 MCV 97.0 fL 82.2-97.4 MCH 34.4 pg High 27.6-33.3 MCHC 35.3 g/dL 33.0-35.5 RDW 13.8 % High 11.6-13.7 PLT 206 x10^3/UL 150-400 MPV 7.8 fL 7.4-10.4 Gran # 4.2 x10^3/UL 1.5-7.2 Lymph# 1.8 x10^3/UL 0.7-4.9 [place]# 0.5 x10^3/UL 0.1-0.9 Gran % 63.4 % 42.2-75.2 Lymph % 28.6 % 20.5-51.1 [place]% 8.0 % 1.7-9.3 PT And PTT 01/08/2017 Inr 1.2 35, 36 Prothrombin Time 12.7 seconds High 9.6-11.5 35 aPTT 33.3 seconds High 25.0-31.3 35 CBC Electronic (Fma) 12/21/2016 WBC 9.4 3.6-9.6 RBC 4.27 3.90-5.70 Hemoglobin (Fma/CMC/CTX) 14.6 g/dL 12.1 - 17.2 Hematocrit (Fma/CMC/CTX) 42.1 % 36.1 - 50.3 Platelets 137 10^3/ul Low 150-400 37 Lymph% 14.9 % Low 17.0-48.0 Mixed% 6.1 Neutrophils % 79.0 Mean Corpuscular Vol 99 High 82.2-97.4 Mean Corpuscular Hemoglobin 34.1 High 27.6-33.3 Mean Corpuscular Hemo Concen 34.6 32.0-36.0 RDW 13.9 High 11.6-13.7 Mean Platelet Volume 7.8 5.5-11.0 Comprehensive Metabolic Prof 12/21/2016 Sodium 132 mEq/L Low 134-149 38 Potassium 4.8 mEq/L 3.6-5.5 Chloride 93 mEq/L Low 94-112 Carbon Dioxide 24 mEq/L 21-32 Glucose 81 mg/dL 70-105 BUN 11 mg/dL 6-26 Creatinine 1.0 mg/dL 0.6-1.4 BUN/Creat Ratio 11.0 CALC 8.0-36.0 Calcium 9.1 mg/dL 8.6-10.2 Total Protein 7.1 g/dL 6.4-8.3 Albumin 4.4 g/dL 3.8-5.5 Globulin 2.7 g/dL 2.0-4.8 A/G Ratio 1.6 CALC 0.6-2.3 Alk. Phosphatase 76 U/L 22-95 Alt (SGPT) 50 U/L High 7-35 Ast (Sgot) 48 U/L High 5-34 Total Bilirubin 2.1 mg/dL High 0.2-1.3 39 GFR Non- >60 ml/min/1.73m^ >=60 GFR >60 ml/min/1.73m^ >=60 Total And Direct Bili 12/21/2016 Total Bilirubin 2.1 mg/dL High 0.2-1.3 40 Direct Bilirubn 0.9 mg/dL High 0.0-0.6 Indirect Bilirubin 1.20 mg/dL High 0.10-1.00 PT And PTT 12/21/2016 Inr 1.4 41, 42 Prothrombin Time 14.6 seconds High 9.6-11.5 41 aPTT 40.2 seconds High 25.0-31.3 41 Comprehensive Metabolic Prof 12/01/2016 Sodium 136 mEq/L 134-149 Potassium 4.8 mEq/L 3.6-5.5 Chloride 94 mEq/L 94-112 Carbon Dioxide 25 mEq/L 21-32 Glucose 101 mg/dL 70-105 BUN 11 mg/dL 6-26 Creatinine 1.0 mg/dL 0.6-1.4 BUN/Creat Ratio 11.0 CALC 8.0-36.0 Calcium 9.7 mg/dL 8.6-10.2 Total Protein 7.1 g/dL 6.4-8.3 Albumin 4.4 g/dL 3.8-5.5 Globulin 2.7 g/dL 2.0-4.8 A/G Ratio 1.6 CALC 0.6-2.3 Alk. Phosphatase 77 U/L 22-95 Alt (SGPT) 39 U/L High 7-35 Ast (Sgot) 39 U/L High 5-34 Total Bilirubin 0.7 mg/dL 0.2-1.3 GFR Non- >60 ml/min/1.73m^ >=60 GFR >60 ml/min/1.73m^ >=60 Laboratory test finding 12/01/2016 TSH 3.77 mIU/L 0.50-6.00 Free T4 0.84 ng/dL 0.75-1.54 PSA 4.7 ng/mL High 0.0-4.0 43 Complete Blood Count 12/01/2016 WBC 6.1 x10^3/UL 3.6-9.6 RBC 4.58 x10^6/UL 3.90-5.70 HGB 15.4 g/dL 12.1-17.2 HCT 45 % 36-50 MCV 98.0 fL High 82.2-97.4 MCH 33.6 pg High 27.6-33.3 MCHC 34.4 g/dL 33.0-35.5 RDW 14.6 % High 11.6-13.7 PLT 193 x10^3/UL 150-400 MPV 6.7 fL Low 7.4-10.4 Gran # 4.2 x10^3/UL 1.5-7.2 Lymph# 1.4 x10^3/UL 0.7-4.9 [place]# 0.5 x10^3/UL 0.1-0.9 Gran % 67.4 % 42.2-75.2 Lymph % 22.9 % 20.5-51.1 [place]% 9.7 % High 1.7-9.3 Laboratory test finding 11/06/2016 Levetiracetam (Keppra), S 29.5 ug/mL 10.0-40.0 44 Digoxin, Serum 1.5 ng/mL High 0.5-0.9 44, 45 Comprehensive Metabolic Prof 11/06/2016 Sodium 130 mEq/L Low 134-149 46 Potassium 5.5 mEq/L 3.6-5.5 Chloride 94 mEq/L 94-112 Carbon Dioxide 24 mEq/L 21-32 Glucose 90 mg/dL 70-105 BUN 10 mg/dL 6-26 Creatinine 1.2 mg/dL 0.6-1.4 BUN/Creat Ratio 8.3 CALC 8.0-36.0 Calcium 9.8 mg/dL 8.6-10.2 Total Protein 7.6 g/dL 6.4-8.3 Albumin 4.6 g/dL 3.8-5.5 Globulin 3.0 g/dL 2.0-4.8 A/G Ratio 1.5 CALC 0.6-2.3 Alk. Phosphatase 96 U/L High 22-95 Alt (SGPT) 41 U/L High 7-35 Ast (Sgot) 43 U/L High 5-34 Total Bilirubin 1.0 mg/dL 0.2-1.3 GFR Non- >60 ml/min/1.73m^ >=60 GFR >60 ml/min/1.73m^ >=60 Lipid Profile 11/06/2016 Cholesterol 248 mg/dL High 120-200 Triglycerides 73 mg/dL 30-200 HDL Cholesterol 128 mg/dL High 30-70 LDL (Calculated) 105 CALC 0-129 VLDL Cholesterol 15 mg/dL 0-50 HDL Risk Factor 1.9 CALC 0.0-4.4 Complete Blood Count 11/06/2016 WBC 7.4 x10^3/UL 3.6-9.6 RBC 5.08 x10^6/UL 3.90-5.70 HGB 16.9 g/dL 12.1-17.2 HCT 49 % 36-50 MCV 96.0 fL 82.2-97.4 MCH 33.3 pg 27.6-33.3 MCHC 34.7 g/dL 33.0-35.5 RDW 14.3 % High 11.6-13.7 PLT 221 x10^3/UL 150-400 MPV 7.3 fL Low 7.4-10.4 Gran # 4.8 x10^3/UL 1.5-7.2 Lymph# 2.1 x10^3/UL 0.7-4.9 [place]# 0.5 x10^3/UL 0.1-0.9 Gran % 62.6 % 42.2-75.2 Lymph % 29.7 % 20.5-51.1 [place]% 7.7 % 1.7-9.3 Laboratory test finding 11/06/2016 Free T4 1.32 ng/dL 0.75-1.54 TSH 8.94 mIU/L High 0.50-6.00 47 PSA 5.8 ng/mL High 0.0-4.0 48 Laboratory test 10/15/2016 Lactic Acid 2.0 mmol/L 0.5-2.0 49 finding Laboratory test 10/15/2016 Levetiracetam (Keppra) 12.8 g/mL 50 finding Digitoxin Level 10/15/2016 Digitoxin None Detected 10 - 30 ng/mL Digitoxin Reporting Limit 5.0 ng/mL 51 Laboratory test finding 07/05/2016 Digoxin, Serum 1.4 ng/mL 0.9-2.0 52 Laboratory test finding 06/26/2016 Digitoxin <3.0 ng/mL Low 10 - 25 53 Laboratory test finding 06/26/2016 Hemoglobin A1c (Fma) 5.1 % % 4.1-5.7 Laboratory test finding 06/19/2016 Point of Care Glucose 112 mg/dL High 74 -106 54 Comprehensive Metabolic 06/14/2016 Sodium 132 mEq/L Low 134-149 55 Prof Potassium 5.3 mEq/L 3.6-5.5 Chloride 94 mEq/L 94-112 Carbon Dioxide 28 mEq/L 21-32 Glucose 117 mg/dL High 70-105 56 BUN 11 mg/dL 6-26 Creatinine 0.8 mg/dL 0.6-1.4 BUN/Creat Ratio 13.8 CALC 8.0-36.0 Calcium 9.3 mg/dL 8.6-10.2 Total Protein 7.4 g/dL 6.4-8.3 Albumin 4.2 g/dL 3.8-5.5 Globulin 3.2 g/dL 2.0-4.8 A/G Ratio 1.3 CALC 0.6-2.3 Alk. Phosphatase 97 U/L High 22-95 Alt (SGPT) 26 U/L 7-35 Ast (Sgot) 31 U/L 5-34 Total Bilirubin 0.6 mg/dL 0.2-1.3 GFR Non- >60 ml/min/1.73m^ >=60 GFR >60 ml/min/1.73m^ >=60 Lipid Profile 06/14/2016 Cholesterol 203 mg/dL High 120-200 Triglycerides 42 mg/dL 30-200 HDL Cholesterol 92 mg/dL High 30-70 LDL (Calculated) 103 CALC 0-129 VLDL Cholesterol 8 mg/dL 0-50 HDL Risk Factor 2.2 CALC 0.0-4.4 Laboratory test finding 06/14/2016 CK 113 U/L 38-174 Complete Blood Count 06/14/2016 WBC 6.6 x10^3/UL 3.6-9.6 RBC 4.60 x10^6/UL 3.90-5.70 HGB 14.0 g/dL 12.1-17.2 HCT 41 % 36-50 MCV 89.0 fL 82.2-97.4 MCH 30.5 pg 27.6-33.3 MCHC 34.2 g/dL 33.0-35.5 RDW 17.5 % High 11.6-13.7 PLT 190 x10^3/UL 150-400 MPV 6.7 fL Low 7.4-10.4 Gran # 4.4 x10^3/UL 1.5-7.2 Lymph# 1.7 x10^3/UL 0.7-4.9 [place]# 0.5 x10^3/UL 0.1-0.9 Gran % 65.4 % 42.2-75.2 Lymph % 26.8 % 20.5-51.1 [place]% 7.8 % 1.7-9.3 Laboratory test finding 06/14/2016 TSH 1.93 mIU/L 0.50-6.00 57 Free T4 0.80 ng/dL 0.75-1.54 Laboratory test finding 03/21/2016 Inr (Fma) 1.7 Low 2.0-3.0 Comprehensive Metabolic Prof 03/21/2016 Sodium 127 mEq/L Low 134-149 58 Potassium 5.6 mEq/L High 3.6-5.5 59 Chloride 94 mEq/L 94-112 Carbon Dioxide 25 mEq/L 21-32 Glucose 88 mg/dL 70-105 BUN 11 mg/dL 6-26 Creatinine 0.8 mg/dL 0.6-1.4 BUN/Creat Ratio 13.8 CALC 8.0-36.0 Calcium 8.7 mg/dL 8.6-10.2 Total Protein 6.9 g/dL 6.4-8.3 Albumin 3.9 g/dL 3.8-5.5 Globulin 3.0 g/dL 2.0-4.8 A/G Ratio 1.3 CALC 0.6-2.3 Alk. Phosphatase 97 U/L High 22-95 60 Alt (SGPT) 15 U/L 7-35 Ast (Sgot) 20 U/L 5-34 Total Bilirubin 0.4 mg/dL 0.2-1.3 GFR Non- >60 ml/min/1.73m^ >=60 GFR >60 ml/min/1.73m^ >=60 Lipid Profile 03/21/2016 Cholesterol 181 mg/dL 120-200 Triglycerides 54 mg/dL 30-200 HDL Cholesterol 52 mg/dL 30-70 LDL (Calculated) 118 CALC 0-129 VLDL Cholesterol 11 mg/dL 0-50 HDL Risk Factor 3.5 CALC 0.0-4.4 Laboratory test finding 03/21/2016 Magnesium, Serum 2.0 mEq/L 1.2-2.1 TSH 2.47 mIU/L 0.50-6.00 Complete Blood Count 03/21/2016 WBC 7.8 x10^3/UL 3.6-9.6 RBC 4.57 x10^6/UL 3.90-5.70 HGB 14.2 g/dL 12.1-17.2 HCT 41 % 36-50 MCV 90.0 fL 82.2-97.4 MCH 31.1 pg 27.6-33.3 MCHC 34.5 g/dL 33.0-35.5 RDW 14.7 % High 11.6-13.7 PLT 307 x10^3/UL 150-400 MPV 7.1 fL Low 7.4-10.4 Gran # 5.1 x10^3/UL 1.5-7.2 Lymph# 2.0 x10^3/UL 0.7-4.9 [place]# 0.7 x10^3/UL 0.1-0.9 Gran % 64.0 % 42.2-75.2 Lymph % 26.1 % 20.5-51.1 [place]% 9.9 % High 1.7-9.3 Laboratory test finding 03/07/2016 Inr (Fma) 1.5 Low 2.0-3.0 Laboratory test finding 03/01/2016 Inr (Fma) 3.2 High 2.0-3.0 Laboratory test finding 02/24/2016 Potassium Redraw 4.8 mmol/L 3.5-5.0 Ast Redraw 23 U/L 13-39 Laboratory test finding 02/16/2016 Inr (Fma) 2.5 2.0-3.0 Laboratory test finding 02/10/2016 Inr (Fma) 1.3 Low 2.0-3.0 Laboratory test finding 02/01/2016 Troponin I 0.02 ng/mL <0.03 61 CBC Auto Diff 02/01/2016 White Blood Count 5.5 10^3/uL 3.5-10.8 Red Blood Count 4.07 10^6/uL 4.0-5.4 Hemoglobin 12.2 g/dL Low 14.0-18.0 Hematocrit 37 % Low 42-52 Mean Corpuscular Volume 90 fL 80-94 Mean Corpuscular Hemoglobin 30 pg 27-31 Mean Corpuscular HGB Conc 34 g/dL 31-36 Red Cell Distribution Width 15 % 10.5-15 Platelet Count 218 10^3/uL 150-450 Mean Platelet Volume 8 um3 7.4-10.4 Abs Neutrophils 2.8 10^3/uL 1.5-7.7 Abs Lymphocytes 1.6 10^3/uL 1.0-4.8 Abs Monocytes 0.7 10^3/uL 0-0.8 Abs Eosinophils 0.3 10^3/uL 0-0.6 Abs Basophils 0.1 10^3/uL 0-0.2 Abs Nucleated RBC 0 10^3/uL Granulocyte % 51.6 % 38-83 Lymphocyte % 29.2 % 25-47 Monocyte % 11.9 % High 1-9 Eosinophil % 6.3 % High 0-6 Basophil % 1.0 % 0-2 Nucleated Red Blood Cells % 0 Inr/Protime 02/01/2016 Inr 1.60 High 0.89-1.11 Laboratory test finding 02/01/2016 Partial Thrombo Time 37.7 seconds High 26.0-36.3 PTT Comp Metabolic Panel 02/01/2016 Sodium 129 mmol/L Low 133-145 Potassium 4.0 mmol/L 3.5-5.0 Chloride 96 mmol/L Low 101-111 Co2 Carbon Dioxide 25 mmol/L 22-32 Anion Gap 8 mmol/L 2-11 Glucose 112 mg/dL High 70-100 Blood Urea Nitrogen 6 mg/dL 6-24 Creatinine 1.01 mg/dL 0.67-1.17 BUN/Creatinine Ratio 5.9 Low 8-20 Calcium 9.1 mg/dL 8.6-10.3 Total Protein 7.7 g/dL 6.4-8.9 Albumin 3.9 g/dL 3.2-5.2 Globulin 3.8 g/dL 2-4 Albumin/Globulin Ratio 1.0 1-3 Total Bilirubin 0.70 mg/dL 0.2-1.0 Alkaline Phosphatase 103 U/L 34-104 Alt 12 U/L 7-52 Ast 17 U/L 13-39 Egfr Non- 75.4 >60 Egfr 96.9 >60 62 Laboratory test finding 02/01/2016 Troponin I 0.03 ng/mL High <0.03 63 Lactic Acid 2.2 mmol/L High 0.5-2.0 64 Magnesium 2.0 mg/dL 1.9-2.7 Digoxin 0.9 ng/ml 0.8-2.0 Valproic Acid (Depakene) 61.0 g/mL 50-100 TSH (Thyroid Stim Horm) 4.34 mcIU/mL 0.34-5.60 Levetiracetam (Keppra) 6.0 g/mL 65 Laboratory test 01/31/2016 Inr (Fma) 1.7 Low 2.0-3.0 finding Laboratory test 01/24/2016 Inr (Fma) 1.9 Low 2.0-3.0 finding Laboratory test 01/19/2016 Inr (Fma) 5.7 High 2.0-3.0 finding Laboratory test 03/03/2015 HCV Antibody <0.1 s/coratio 0.0-0.9 66, 67 finding Panel [id number] PT 03/03/2015 HIV 1/O/2 Abs-Index <1.00 <1.00 66, 68 Only Value HIV 1/O/2 Abs, Qual Non Reactive Non Reactive 66 Lipid Profile 01/21/2015 Cholesterol 183 mg/dL 120-200 Triglycerides 56 mg/dL 30-200 HDL Cholesterol 54 mg/dL 30-70 LDL (Calculated) 118 CALC 0-129 VLDL Cholesterol 11 mg/dL 0-50 HDL Risk Factor 3.4 CALC 0.0-4.4 Comprehensive Metabolic Prof 01/21/2015 Sodium 129 mEq/L Low 134-149 69 Potassium 4.6 mEq/L 3.6-5.5 Chloride 95 mEq/L 94-112 Carbon Dioxide 29 mEq/L 21-32 Glucose 84 mg/dL 70-105 BUN 8 mg/dL 6-26 Creatinine 0.8 mg/dL 0.6-1.4 BUN/Creat Ratio 10.0 CALC 8.0-36.0 Calcium 8.9 mg/dL 8.6-10.2 Total Protein 6.4 g/dL 6.4-8.3 Albumin 3.9 g/dL 3.8-5.5 Globulin 2.5 g/dL 2.0-4.8 A/G Ratio 1.6 CALC 0.6-2.3 Alk. Phosphatase 55 U/L 22-95 Alt (SGPT) 10 U/L 7-35 Ast (Sgot) 15 U/L 5-34 Total Bilirubin 0.5 mg/dL 0.2-1.3 1 Because ethnic data is not always readily available, this report includes an eGFR for both -Americans and non- Americans. The National Kidney Disease Education Program (NKDEP) does not endorse the use of the MDRD equation for patients that are not between the ages of 18 and 70, are , have extremes of body size, muscle mass, or nutritional status, or are non- or non-. According to the [employer] Kid[employer], irrespective of diagnosis, the stage of the disease is based on the level of kidney function: Stage Description GFR(mL/min/1.73 m(2)) 1 Kidney damage with normal or decreased GFR 90 2 Kidney damage with mild decrease in GFR 60-89 3 Moderate decrease in GFR 30-59 4 Severe decrease in GFR 15-29 5 Kidney failure <15 (or dialysis) 2 Copy Result to: [facility] ([id number]) 3 Presumptive Positive Presumptive positive results are unconfirmed. 4 The urine specimen was tested at the listed cutoffs: Drug class test level (ng/mL) Amphetamines 500 Barbiturates 200 Benzodiazepine metabolites 200 Cocaine metabolites 150 Cannabinoids 50 Opiates 300 Pcp 25 Specimen was received without chain of custody. Results should be used for medical purposes only. 5 Desirable: <150 Borderline High: 150-199 High: 200-499 Very High: >500 6 Desirable: <200 Borderline High: 200-239 High: >239 7 Low: <40 Desirable: 40-60 High: >60 8 Desirable: <100 Near Optimal: 100-129 Borderline High: 130-159 High: 160-189 Very High: >189 9 Therapeutic concentration: <50 ug/mL Toxic concentration: >120 ug/mL 10 Because ethnic data is not always readily available, this report includes an eGFR for both -Americans and non- Americans. The National Kidney Disease Education Program (NKDEP) does not endorse the use of the MDRD equation for patients that are not between the ages of 18 and 70, are , have extremes of body size, muscle mass, or nutritional status, or are non- or non-. According to the National Kidney Foundation, irrespective of diagnosis, the stage of the disease is based on the level of kidney function: Stage Description GFR(mL/min/1.73 m(2)) 1 Kidney damage with normal or decreased GFR 90 2 Kidney damage with mild decrease in GFR 60-89 3 Moderate decrease in GFR 30-59 4 Severe decrease in GFR 15-29 5 Kidney failure <15 (or dialysis) 11 1 sst 12 Concentrations above 2.0 ng/mL are generally considered toxic. Some overlap of toxic and non-toxic values have been reported. Detection Limit=0.4 ng/mL Therapeutic range is derived from 2013 ACCF/AHA Guidelines for the Management of Heart Failure. 13 REFERENCE VALUE 12.0 - 46.0 ADDITIONAL INFORMATION This test was developed and its performance characteristics determined by [facility] in a manner consistent with CLIA requirements. This test has not been cleared or approved by the U.S. Food and Drug Administration. Test Performed by: [facility] [address] [place] [address] 14 Because ethnic data is not always readily available, this report includes an eGFR for both -Americans and non- Americans. The National Kidney Disease Education Program (NKDEP) does not endorse the use of the MDRD equation for patients that are not between the ages of 18 and 70, are , have extremes of body size, muscle mass, or nutritional status, or are non- or non-. According to the National Kidney Foundation, irrespective of diagnosis, the stage of the disease is based on the level of kidney function: Stage Description GFR(mL/min/1.73 m(2)) 1 Kidney damage with normal or decreased GFR 90 2 Kidney damage with mild decrease in GFR 60-89 3 Moderate decrease in GFR 30-59 4 Severe decrease in GFR 15-29 5 Kidney failure <15 (or dialysis) 15 Because ethnic data is not always readily available, this report includes an eGFR for both -Americans and non- Americans. The National Kidney Disease Education Program (NKDEP) does not endorse the use of the MDRD equation for patients that are not between the ages of 18 and 70, are , have extremes of body size, muscle mass, or nutritional status, or are non- or non-. According to the National Kidney Foundation, irrespective of diagnosis, the stage of the disease is based on the level of kidney function: Stage Description GFR(mL/min/1.73 m(2)) 1 Kidney damage with normal or decreased GFR 90 2 Kidney damage with mild decrease in GFR 60-89 3 Moderate decrease in GFR 30-59 4 Severe decrease in GFR 15-29 5 Kidney failure <15 (or dialysis) 16 Critical Result LACT:5.7 Called to [id number] at: 13:57:34 by:[id number] Read back by:[id number] [facility] Severe Sepsis and Septic Shock Management Bundle Measure requires all lactic acids initially measuring >2.0 mmol/L be repeated. [facility] Severe Sepsis and Septic Shock Management Bundle Measure requires all lactic acids initially measuring >2.0 mmol/L be repeated. 17 Because ethnic data is not always readily available, this report includes an eGFR for both -Americans and non- Americans. The National Kidney Disease Education Program (NKDEP) does not endorse the use of the MDRD equation for patients that are not between the ages of 18 and 70, are , have extremes of body size, muscle mass, or nutritional status, or are non- or non-. According to the National Kidney Foundation, irrespective of diagnosis, the stage of the disease is based on the level of kidney function: Stage Description GFR(mL/min/1.73 m(2)) 1 Kidney damage with normal or decreased GFR 90 2 Kidney damage with mild decrease in GFR 60-89 3 Moderate decrease in GFR 30-59 4 Severe decrease in GFR 15-29 5 Kidney failure <15 (or dialysis) 18 RESULTS VERIFIED BY REPEAT ANALYSIS 19 NON-FASTING 20 FROZEN EDTA PLASMA FROM [facility] 21 Please note the change in INR reference range effective 17. 22 [facility] Severe Sepsis and Septic Shock Management Bundle Measure requires all lactic acids initially measuring >2.0 mmol/L be repeated. 23 Because ethnic data is not always readily available, this report includes an eGFR for both -Americans and non- Americans. The National Kidney Disease Education Program (NKDEP) does not endorse the use of the MDRD equation for patients that are not between the ages of 18 and 70, are , have extremes of body size, muscle mass, or nutritional status, or are non- or non-. According to the National Kidney Foundation, irrespective of diagnosis, the stage of the disease is based on the level of kidney function: Stage Description GFR(mL/min/1.73 m(2)) 1 Kidney damage with normal or decreased GFR 90 2 Kidney damage with mild decrease in GFR 60-89 3 Moderate decrease in GFR 30-59 4 Severe decrease in GFR 15-29 5 Kidney failure <15 (or dialysis) 24 Acute inflammation: >10.00 25 Presumptive Positive Presumptive positive results are unconfirmed. 26 Presumptive Positive Presumptive positive results are unconfirmed. 27 The urine specimen was tested at the listed cutoffs: Drug class test level (ng/mL) Amphetamines 500 Barbiturates 200 Benzodiazepine metabolites 200 Cocaine metabolites 150 Cannabinoids 50 Opiates 300 Pcp 25 Specimen was received without chain of custody. Results should be used for medical purposes only. 28 SEE RESULT BELOW Name: GILDA CORTEZ : [address]: Aung Alexander MD Acct: [id number] Unit: [id number] AGE: 62 Location: ED Re06/06/17 SEX: M Status: DEP ER SPEC: [id number] SIENA: 06/07/17-1145 [facility] DR: Aung Alexander MD REQ: [id number] RECD: 06/07/17935 STATUS: [place] GANT DR: Kellee Bangura MD _ SOURCE: URINE SPDESC: ORDERED: Urine Culture QUERIES: Urine Source: Random Procedure Result Reported Site Urine Culture Final 06/08/17- 1337 ML No Growth (<1,000 CFU/mL) * ML - MAIN LAB ([facility]) . END OF REPORT * ML=Testing performed at Main Lab DEPARTMENT OF PATHOLOGY, [address] [place] [address] Alirio Hawkins M.D. Director [facility] # [id number] 29 Presumptive Positive Presumptive positive results are unconfirmed. 30 Presumptive Positive Presumptive positive results are unconfirmed. 31 The urine specimen was tested at the listed cutoffs: Drug class test level (ng/mL) Amphetamines 500 Barbiturates 200 Benzodiazepine metabolites 200 Cocaine metabolites 150 Cannabinoids 50 Opiates 300 Pcp 25 Specimen was received without chain of custody. Results should be used for medical purposes only. 32 Therapeutic concentration: <50 ug/mL Toxic concentration: >120 ug/mL 33 Because ethnic data is not always readily available, this report includes an eGFR for both -Americans and non- Americans. The National Kidney Disease Education Program (NKDEP) does not endorse the use of the MDRD equation for patients that are not between the ages of 18 and 70, are , have extremes of body size, muscle mass, or nutritional status, or are non- or non-. According to the National Kidney Foundation, irrespective of diagnosis, the stage of the disease is based on the level of kidney function: Stage Description GFR(mL/min/1.73 m(2)) 1 Kidney damage with normal or decreased GFR 90 2 Kidney damage with mild decrease in GFR 60-89 3 Moderate decrease in GFR 30-59 4 Severe decrease in GFR 15-29 5 Kidney failure <15 (or dialysis) 34 SEE RESULT BELOW Name: GILDA CORTEZ : [address]: Henry Nunez MD Acct: [id number] Unit: [id number] AGE: 62 Location: ENDO Re03/26/17 SEX: M Status: DEP REF SPEC: [id number] SIENA: 03/26/17- SUBM DR: Henry Nunez MD REQ: [id number] RECD: 03/26/170838 STATUS: BERENICE GANT DR: Kellee Bangura MD _ ORDERED: LEVEL 4 FINAL DIAGNOSIS Colon, at 25 cm, biopsy: -- Tubular adenoma. -- No high grade dysplasia or malignancy. CLINICAL HISTORY No history given. POST-OPERATIVE DIAGNOSIS Colonoscopy to terminal ileum, diverticulosis, large polyp at 25 cm removed with loop snare cautery and clip. Conclusions/Plan: Follow up after biopsy, repeat colonoscopy in three years. GROSS DESCRIPTION The specimen is received in formalin labeled, Colon Polyp at 25 cm, and consists of three mancia-pink to red irregular to polypoid soft tissue fragments ranging from 0.2 x 0.2 x 0.1 cm to 0.5 x 0.5 x 0.4 cm. The two larger fragments are differentially inked, bisected and the specimen is submitted entirely in one cassette. Signed (signature on file) Shruti Bucio MD [id number] END OF REPORT * ML=Testing performed at Main Lab DEPARTMENT OF PATHOLOGY, [address] [place] [address] Alirio Hawkins M.D. Director [facility] # [id number] 35 2 light blue tops FILLED T O THE LINE 36 INTERNATIONAL NORMALIZED RATIO(INR) INDICATIONS INR RANGE PATIENTS NOT ON ANTICOAGULANT THERAPY * DEEP VENOUS THROMBOSIS 2.0-3.0 PULMONARY EMBOLISM 2.0-3.0 ATRIAL FIBRILLATION 2.0-3.0 PROPHYLAXIS: 2.0-3.0 HIGH-RISK SURGERY TISSUE HEART VALVES ATRIAL FIBRILLATION ACUTE MYOCARDIAL INFARCTION VALVULAR HEART DISEASE MECHANICAL PROSTHETIC VALVE 2.5-3.5 * USE OF INR VALUES SHOULD BE LIMITED TO PATIENTS WHO ARE ON STABLE ORAL ANTICOAGULANT THERAPY. AN INR ABOVE 5.0-5.5 APPEARS TO BE ASSOCIATED WITH AN UNACCEPTABLY HIGH RISK OF BLEEDING. 37 result rechecked 38 RESULTS VERIFIED BY REPEAT ANALYSIS 39 RESULTS VERIFIED BY REPEAT ANALYSIS 40 RESULTS VERIFIED BY REPEAT ANALYSIS 41 2 light blue filled to the line 42 INTERNATIONAL NORMALIZED RATIO(INR) INDICATIONS INR RANGE PATIENTS NOT ON ANTICOAGULANT THERAPY * DEEP VENOUS THROMBOSIS 2.0-3.0 PULMONARY EMBOLISM 2.0-3.0 ATRIAL FIBRILLATION 2.0-3.0 PROPHYLAXIS: 2.0-3.0 HIGH-RISK SURGERY TISSUE HEART VALVES ATRIAL FIBRILLATION ACUTE MYOCARDIAL INFARCTION VALVULAR HEART DISEASE MECHANICAL PROSTHETIC VALVE 2.5-3.5 * USE OF INR VALUES SHOULD BE LIMITED TO PATIENTS WHO ARE ON STABLE ORAL ANTICOAGULANT THERAPY. AN INR ABOVE 5.0-5.5 APPEARS TO BE ASSOCIATED WITH AN UNACCEPTABLY HIGH RISK OF BLEEDING. 43 RESULTS VERIFIED BY REPEAT ANALYSIS 44 1 serum pour off from [employer] 45 Concentrations above 2.0 ng/mL are generally considered toxic. Some overlap of toxic and non-toxic values have been reported. Detection Limit=0.4 ng/mL Therapeutic range is derived from 2013 ACCF/AHA Guidelines for the Management of Heart Failure. 46 RESULTS VERIFIED BY REPEAT ANALYSIS 47 RESULTS VERIFIED BY REPEAT ANALYSIS 48 RESULTS VERIFIED BY REPEAT ANALYSIS 49 [facility] Severe Sepsis and Septic Shock Management Bundle Measure requires all lactic acids initially measuring >2.0 mmol/L be repeated. 50 REFERENCE VALUE 12.0 - 46.0 ADDITIONAL INFORMATION This test was developed and its performance characteristics determined by [facility] in a manner consistent with CLIA requirements. This test has not been cleared or approved by the U.S. Food and Drug Administration. Test Performed by: [facility] - [address] [address] 51 Test Performed by: [facility] [address] [place] [address] [address] [address] 52 Concentrations above 2.0 ng/mL are generally considered toxic. Some overlap of toxic and non-toxic values have been reported. Detection Limit=0.4 ng/mL 53 1pour off serum from red [employer] op 54 Rug Inspector Helper: [id number] JERMAINE HEATHER 55 RESULTS VERIFIED BY REPEAT ANALYSIS 56 RESULTS VERIFIED BY REPEAT ANALYSIS 57 FASTING 58 consistent w/ previous results 59 RESULTS VERIFIED BY REPEAT ANALYSIS interpret with caution remberto up in syringe 60 RESULTS VERIFIED BY REPEAT ANALYSIS 61 Reference Range and Interpretation: TnI (ng/mL) Interpretation Less Than 0.03 ng/mL Not supportive of diagnosis of MO 0.03 - 0.50 ng/mL Indeterminate: suggest serial studies if clinically indicated. Greater than 0.5 ng/mL Consistent with diagnosis of MO 62 Because ethnic data is not always readily available, this report includes an eGFR for both -Americans and non- Americans. The National Kidney Disease Education Program (NKDEP) does not endorse the use of the MDRD equation for patients that are not between the ages of 18 and 70, are , have extremes of body size, muscle mass, or nutritional status, or are non- or non-. According to the National Kidney Foundation, irrespective of diagnosis, the stage of the disease is based on the level of kidney function: Stage Description GFR(mL/min/1.73 m(2)) 1 Kidney damage with normal or decreased GFR 90 2 Kidney damage with mild decrease in GFR 60-89 3 Moderate decrease in GFR 30-59 4 Severe decrease in GFR 15-29 5 Kidney failure <15 (or dialysis) 63 Reference Range and Interpretation: TnI (ng/mL) Interpretation Less Than 0.03 ng/mL Not supportive of diagnosis of MO 0.03 - 0.50 ng/mL Indeterminate: suggest serial studies if clinically indicated. Greater than 0.5 ng/mL Consistent with diagnosis of MO 64 Critical Result LACT:2.2 Called to [id number] at: 02:34:27 by:[id number] Read back by:[id number] [facility] Severe Sepsis and Septic Shock Management Bundle Measure requires all lactic acids initially measuring >2.0 mmol/L be repeated. 65 REFERENCE VALUE 12.0 - 46.0 Test Performed by: [address] [address] Director University: Ivan Frost II, M.D., Ph.D. 66 2SST 67 Negative: < 0.8 Indeterminate: 0.8 - 0.9 Positive: > 0.9 In order to reduce the incidence of a false positive result, the CDC recommends that all s/co ratios between 1.0 and 10.9 be confirmed by a more specific supplemental or PCR testing. [facility] offers HCV Ab w/Reflex to Verification test #[id number]. 68 Index Value: Specimen reactivity relative to the negative cutoff. 69 RESULTS VERIFIED BY REPEAT ANALYSIS Procedures Date CPT Code Description Status Comment 03/26/2017 Colonoscopy Completed 03/19/2017 Colonoscopy Completed TA 3 years 04/18/2016 73642 Pulse Oximetry Completed 04/18/2016 95751 Electrocardiogram Complete Completed 03/07/2016 47457 Finger Or Heel Stick Completed 03/01/2016 43719 Finger Or Heel Stick Completed 02/16/2016 13575 Finger Or Heel Stick Completed 02/10/2016 14626 Finger Or Heel Stick Completed 01/31/2016 41581 Finger Or Heel Stick Completed 01/24/2016 90344 Finger Or Heel Stick Completed 01/19/2016 53040 Finger Or Heel Stick Completed Encounters Type Date Location Provider CPT E/M Dx Office Visit 01/30/2018 4:40p [place] [address] S60.222A W01.198A Office Visit 01/16/2018 4:10p [place] [address] F31.0 F41.1 Office Visit 12/26/2017 1:00p [place] [address] F41.1 E03.9 Office Visit 11/21/2017 12:40p [place] [address] F41.1 G40.89 Office Visit 11/02/2017 2:40p [place] [address] F41.1 Office Visit 10/19/2017 3:50p [place] [address] F31.0 G40.89 F17.210 Office Visit 09/20/2017 4:40p [place] [address] F31.0 G40.89 I73.9 F17.210 G47.09 Office Visit 08/31/2017 9:50a [place] [address] R00.0 G40.309 F20.89 R06.00 Office Visit 08/22/2017 2:50p [place] [address] G40.89 Office Visit 07/25/2017 12:00p [place] [address] F31.0 E87.1 Office Visit 07/04/2017 2:00p [place] [address] G40.89 E87.1 R41.82 Office Visit 06/28/2017 11:00a Main Office Kellee Bangura M.D. 82306 F31.9 I73.9 I10 I48.0 Office Visit 06/11/2017 4:30p Main Office Kellee Bangura M.D. 57274 F31.9 I73.9 I10 F10.20 G40.309 I48.0 J44.9 S00.03xA Z48.02 Office Visit 05/07/2017 5:00p Main Office Kellee Bangura M.D. 39603 F31.9 I73.9 I10 F10.20 G60.8 G40.309 Office Visit 04/20/2017 4:30p [place] [address] I73.9 F31.9 Office Visit 12/21/2016 4:50p Main Office Kellee Bangura M.D. 21160 I10 I48.0 F10.20 F31.9 J44.9 I25.10 G40.309 R23.3 E80.7 Office Visit 12/01/2016 4:00p [facility] Kellee Bangura M.D. 77345 I10 G40.309 I25.10 J44.9 F31.9 R97.20 F10.20 I73.9 I48.0 D17.30 R94.6 Z12.11 Z00.01 G60.9 Office Visit 10/26/2016 7:30p Main Office Kellee Bangura M.D. 82742 J44.9 I10 I25.10 F31.9 G40.309 Z12.11 Office Visit 05/24/2016 2:45p Main Office Katrina Melo 98114 R49.0 Office Visit 04/18/2016 2:20p Main Office Kellee Bangura M.D. 62133 R07.89 I25.10 J44.9 F31.9 Office Visit 03/07/2016 3:40p Main Office Kellee Bangura M.D. 02977 J44.9 F31.9 I25.10 I48.0 G40.309 F10.20 Z12.11 E87.1 Z95.2 F17.210 Z71.6 Z79.01 Office Visit 01/19/2016 1:40p Main Office Autumn Lou M.D. 52870 Z79.01 I48.0 I34.0 Office Visit 12/21/2015 10:30a Main Office Eun GamezKatrina juarez 13398 R21 Office Visit 07/14/2015 10:20a Main Office Avtar Ring M.D. 86995 J44.9 I25.10 F17.210 F31.9 Office Visit 03/03/2015 3:30p Main Office Avtar Ring M.D. 60791 496 V74.5 Office Visit 02/17/2015 2:20p Main Office Avtar Ring M.D. 47444 786.05 305.1 110.4 Office Visit 01/20/2015 1:40p Main Office Avtar Ring M.D. 92733 424.1 345.10 443.9 296.80 303.90 Office Visit 12/02/2014 10:10a Main Office Avtar Ring M.D. 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 Yes No Are there Barriers to Adherence? Yes No Has the patient been asked about herbal supplements and therapies, and OTC meds? Yes No
[2018-04-12 20:45] VITALS: BP 119/72
== END 2018-04-12 20:44 | disposition home or self-care (01) ==
LOC: ED 11:41
DX: F10.29 Alcohol dependence with unspecified alcohol-induced disorder (principal); I10 Essential (primary) hypertension; Z95.0 Presence of cardiac pacemaker; Z79.01 Long term (current) use of anticoagulants; Z79.899 Other long term (current) drug therapy; J44.9 Chronic obstructive pulmonary disease, unspecified; F17.210 Nicotine dependence, cigarettes, uncomplicated; F43.25 Adjustment disorder with mixed disturbance of emotions and conduct
CPT/HCPCS: 36415; 80053; 80320; 80329; 84443; 85025; 99285; G0480; J1200; J1630; J2060

== ENCOUNTER 2018-04-17 14:47 | Emergency (ER) | payer MEDICARE, MEDICAID ==
[2018-04-17] MEDS ORDERED: Tetan/Diph/Pertus SYR(Tdap)* 0.5 ML SYR(BOOSTRIX) use SYR IM ONE (15:03)
[2018-04-17] MEDS ORDERED: LORazepam TAB(*) 1 MG PO ONE (15:03)
[2018-04-17] MEDS ORDERED: NS 0.9% 1000 ML* 1,000 ML IV ONE (15:03)
[2018-04-17] MEDS ORDERED: Thiamine IV* 100 MG, Folic Acid IV* 1 MG, Multiple Vitamin IV ADULT* 10 ML in NS 0.9% 1... IV ONE (15:05)
--- NOTE | 2018-04-17 15:10 | ED ---
Neurological HPI - HPI Summary HPI Summary: This pt is a 63 y/o male presenting to [facility] via EMS for fall s/p seizure today. EMS reports the pt was found by his friends face up in his apartment complex parking lot. EMS notes pt sustained a laceration to his head. Pt states he remembers he was exhausted sitting down on some steps when suddenly he thinks he had a seizure. Denies nausea, vomiting, chest pain, SOB. Pt reports drinking two 12 ounce beers today. PMHx includes alcohol induced seizures. He does take Keppra TID and states he took it today. - History of Current Complaint Chief Complaint: EDSeizure Stated Complaint: SEIZURES Time Seen by Provider: 04/17/18 14:58 Hx Obtained From: Patient Onset/Duration: Sudden Onset Timing: Sudden Onset Onset Severity: Moderate Pain Intensity: 0 Character: Other: - seizure Aggravating: Alcohol/Drug Withdrawal - alcohol Alleviating: Nothing Associated Signs and Symptoms: Positive: Loss of Consciousness, Seizure, Pain. Negative: Nausea/Vomiting, Fever, Chest Pain, Shortness of Breath - Additional Pertinent History Primary Care Physician: [id number] - Allergy/Home Medications Allergies/Adverse Reactions: Allergies Allergy/AdvReac Type Severity Reaction Status Date / Time No Known Allergies Allergy Verified 01/08/18 16:25 PMH/Surg Hx/FS Hx/Imm Hx Endocrine/Hematology History: Reports: Hx Anticoagulant Therapy Denies: Hx Diabetes, Hx Thyroid Disease Cardiovascular History: Reports: Hx Hypertension, Hx Pacemaker/ICD - [employer] -GUIANDANT - NOT MR SAFE/CONDITIONAL, Hx Peripheral Vascular Disease , Hx Valvular Heart Disease - Recent valve replacement surgery, Other Cardiovascular Problems/Disorders - Hx Atrial Fibrillation and was treatment with Warfarin which has been d/c'd Respiratory History: Reports: Hx Chronic Bronchitis, Hx Chronic Obstructive Pulmonary Disease (COPD), Other Respiratory Problems/Disorders - poss aspiration Denies: Hx Asthma History: Reports: Other Problems/Disorders - History of SIADH Denies: Hx Renal Disease Musculoskeletal History: Reports: Other Musculoskeletal History - peripheral neuropathy Denies: Hx Arthritis, Hx Osteoporosis Sensory History: Reports: Hx Cataracts, Hx Contacts or Glasses Denies: Hx Hearing Aid Opthamlomology History: Reports: Hx Cataracts, Hx Contacts or Glasses Neurological History: Reports: Hx Seizures, Other Neuro Impairments/Disorders - PERIPHERAL NEUROPATHY Denies: Hx Dementia Psychiatric History: Reports: Hx Anxiety, Hx Depression, Hx Panic Disorder, Hx Post Traumatic Stress Disorder, Hx Inpatient Treatment, Hx Community Mental Health Tx, Hx Bipolar Disorder, Hx Suicide Attempt, Hx of Violent Episodes Against Others, Hx Substance Abuse, Other Psychiatric Issues/Disorders - has had ECT treatment Denies: Hx Eating Disorder, Hx Schizophrenia - Surgical History Surgery Procedure, Year, and Place: cataracts removed. Hx Hernia Repair. AORTIC VALVE REPLACEMENT. PACEMAKER - Immunization History Date of Tetanus Vaccine: PT STATES UNSURE Date of Influenza Vaccine: NONE Infectious Disease History: No Infectious Disease History: Reports: Hx Tuberculosis - hx of inactive TB Denies: Hx Clostridium Difficile, Hx Hepatitis, Hx Human Immunodeficiency Virus (HIV), Hx of Known/Suspected MRSA, Hx Shingles, Hx Known/Suspected VRE, Hx Known/Suspected VRSA, History Other Infectious Disease, Traveled Outside the in Last 30 Days - Family History Known Family History: Positive: Other - Mother -- depression, Father -- EtOH abuse - Social History Alcohol Use: Daily Alcohol Amount: REPORTS BEER WITH DINNER TONIGHT Hx Substance Use: Yes Substance Use Type: Reports: Marijuana Substance Use Comment - Amount & Last Used: last weekend Hx Tobacco Use: Yes Smoking Status (MU): Heavy Every Day Tobacco Smoker Type: Cigarettes Amount Used/How Often: 1/2 PPD Length of Time of Smoking/Using Tobacco: 40 YRS Have You Smoked in the Last Year: Yes Review of Systems Negative: Fever, Chills Negative: Chest Pain Negative: Shortness Of Breath Negative: Vomiting, Nausea Skin: Other - laceration on head Neurological: Other - POS: seizure All Other Systems Reviewed And Are Negative: Yes Physical Exam - Summary Physical Exam Summary: VITAL SIGNS: Reviewed. GENERAL: Patient is a well-developed and nourished male. Patient is not in any acute respiratory distress. HEAD AND FACE: Laceration of 1.5 cm on left side of occipital area. EYES: PERRLA, EOMI x 2, No injected conjunctiva, no nystagmus. EARS: Hearing grossly intact. Ear canals and tympanic membranes are within normal limits. MOUTH: Oropharynx within normal limits. NECK: Supple, trachea is midline, no adenopathy, no JVD, no carotid bruit, no c- spine tenderness, neck with full ROM. CHEST: Symmetric, no tenderness at palpation LUNGS: Clear to auscultation bilaterally. No wheezing or crackles. CVS: Tachycardic rate and regular rhythm, S1 and S2 present, no gallops appreciated. Ejection systolic murmur. ABDOMEN: Soft, non-tender. No signs of distention. No rebound, no guarding, and no masses palpated. Bowel sounds are normal. EXTREMITIES: FROM in all major joints, no edema, no cyanosis or clubbing. NEURO: Alert and oriented x 3. No acute neurological deficits. Speech is normal and follows commands. Pt is nervous and shaking. SKIN: Dry and warm Triage Information Reviewed: Yes Vital Signs On Initial Exam: Initial Vitals Temp Pulse Resp BP Pulse Ox 98.1 F 152 24 136/100 96 04/17/18 14:51 04/17/18 14:51 04/17/18 14:51 04/17/18 14:51 04/17/18 14:51 Vital Signs Reviewed: Yes Procedures - Laceration/Wound Repair 1 Location: head Description: Linear Anesthesia: 1.0%, Lido, Epi Length, Depth and Shape: 1.5 cm Betadine Prep?: Yes Laceration/Wound Explored: clean Closure: Cesar #__ - 8 Sterile Dressing Applied?: Yes Diagnostics - Vital Signs Vital Signs Temp Pulse Resp BP Pulse Ox 04/17/18 14:51 98.1 F 152 24 136/100 96 - Laboratory Result Diagrams: 04/17/18 15:49 04/17/18 15:49 Lab Statement: Any lab studies that have been ordered have been reviewed, and results considered in the medical decision making process. - Radiology Chest XR Xray Interpretation: No Acute Changes - IMPRESSION: No active cardiopulmonary disease. Dr. Quintero has reviewed this report. Radiology Interpretation Completed By: Radiologist - CT Brain CT CT Interpretation: No Acute Changes - IMPRESSION: No acute intracranial pathology. Dr. Quintero has reviewed this report. CT Interpretation Completed By: Radiologist - EKG 15:08 Cardiac Rate: Tachycardia - at 143 bpm EKG Rhythm: Atrial Fibrillation EKG Comparison: No Significant Change - similar to prior on 01/08/18. Re-Evaluation - Re-Evaluation First Eval Re-Evaluation Time: 16:35 Comment: Performing laceration repair Course/Dx - Course Assessment/Plan: This pt is a 63 y/o male presenting to [facility] via EMS for fall s /p seizure today. EMS reports the pt was found by his friends face up in his apartment complex parking lot. EMS notes pt sustained a laceration to his head. Pt states he remembers he was exhausted sitting down on some steps when suddenly he thinks he had a seizure. Denies nausea, vomiting, chest pain, SOB. Pt reports drinking two 12 ounce beers today. PMHx includes alcohol induced seizures. He does take Keppra TID and states he took it today. Head CT impression: No acute intracranial pathology. Chest x-ray impression: No acute cardiopulmonary disease. I did not perform a CT scan of the C-spine since the patient does not have any neck pain. I also clinicalyl cleared the C-spine. Blood work without any significant abnormality except for slight anemia, potassium of 5.1, sodium 130, glucose 124. Urinalysis negative for UTI. Alcohol level less than 10. In the ED course the patient was given IV fluids, the banana bag, tetanus vaccine since he doesn't remember what was the last tetanus booster. The patient was given some Ativan since the patient started to become nervous and anxious. The laceration in the left occipital area was repaired with cesar. Now the patient reports that he wants to be discharged home without completing other workup. Therefore he reports that he will be signing AGAINST MEDICAL ADVICE. I extensively discussed with the patient the benefits and risks of leaving AMA. I also discussed the alternatives to leaving AMA, however, the patient still insists to leave the hospital AMA. The patient is clinically sober, free from distracting injury, appears to have intact insight, judgment and reason, and in my opinion has the capacity to make decisions. Patient has full capacity and is cognitively intact. The patient presents with a seizure and alcohol withdrawal. I have explained to him that I am concerned with another seizure, worsening alcohol withdrawal and . The patient verbalizes the understanding of my concerns. I have also explained the results of the labs even though they are normal. The primary nurse and the charge nurse also strongly recommended that the patient should not leave AMA. Patient understands the risks of leaving AMA, which includes but is not restricted to . Patient signed the AMA form. Patient was also advised to return to ED if he changes his mind or if the symptoms worsen or other symptoms appear. Patient understands and agrees. Again, I discussed all the findings and test results with the patient. Patient was instructed to return to the emergency room immediately if any of the symptoms return or worsens. Plan of care was discussed with the patient and understands and agrees. All questions were answered at patient satisfaction. There were no further complaints or concerns. Patient signed AMA and he was discharged AMA. - Diagnoses Provider Diagnoses: Seizure, Alcohol withdrawal, Head contusion Discharge - Sign-Out/Discharge Documenting (check all that apply): Patient Departure - AMA - Discharge Plan Condition: Stable Disposition: AGAINST MEDICAL ADVICE Referrals: Louie Lewis MD [Primary Care Provider] - - Billing Disposition and Condition Condition: STABLE Disposition: Against Medical Advice - Attestation Statements Document Initiated by Scribe: Yes Documenting Scribe: Kusum Fernandez Provider For Whom Cristian is Documenting (Include Credential): Colten Quintero MD Scribe Attestation: Kusum Meade, scribed for Colten Quintero MD on 04/18/18 at 0746. Scribe Documentation Reviewed: Yes Provider Attestation: The documentation as recorded by the Kusum fajardo accurately reflects the service I personally performed and the decisions made by Colten jackson MD
--- NOTE | 2018-04-17 15:40 | RAD ---
HISTORY: Seizure COMPARISONS: March 28, 2018 TECHNIQUE: Multiple contiguous axial CT scans were obtained of the head without intravenous contrast. FINDINGS: HEMORRHAGE/INFARCT: There is no hemorrhage or acute infarct. MASSES/SHIFT: There is no mass or shift. EXTRA-AXIAL SPACES: There are no extra-axial fluid collections. SULCI AND VENTRICLES: The sulci and ventricles are normal in size and position for the patient's stated age. CEREBRUM: There are no focal parenchymal abnormalities. BRAINSTEM: There are no focal parenchymal abnormalities. CEREBELLUM: There are no focal parenchymal abnormalities. VESSELS: The vessels are grossly normal. PARANASAL SINUSES: The paranasal sinuses are clear. ORBITS: The orbits are unremarkable. BONES AND SOFT TISSUE: There is soft tissue swelling of the left parietal scalp. OTHER: None IMPRESSION: NO ACUTE INTRACRANIAL PATHOLOGY.
--- NOTE | 2018-04-17 15:43 | RAD ---
HISTORY: Seizure COMPARISONS: August 21, 2017 VIEWS: 2: Frontal and lateral views of the chest. FINDINGS: CARDIOMEDIASTINAL SILHOUETTE: The cardiomediastinal silhouette is normal. A prosthetic heart valve is noted. ADRIANNA: The adrianna are normal. PLEURA: The costophrenic angles are sharp. No pleural abnormalities are noted. LUNG PARENCHYMA: There is hyperinflation with flattening of the diaphragm and expansion of the AP diameter of the chest. ABDOMEN: The upper abdomen is clear. There is no subphrenic gas. BONES AND SOFT TISSUES: The patient is status post median sternotomy. OTHER: Left-sided pacemaker is noted. IMPRESSION: NO ACTIVE CARDIOPULMONARY DISEASE.
[2018-04-17 15:56] LABS: ABS Basophils 0 10^3/ul (0-0.2); ABS Eosinophils 0.1 10^3/ul (0-0.6); ABS Lymphocytes 0.6 10^3/ul (1.0-4.8); ABS Monocytes 0.4 10^3/ul (0-0.8); ABS Neutrophils 2.7 10^3/ul (1.5-7.7); ABS Nucleated RBC 0 10^3/ul; Eosinophil % 2.7 % (0-6); Hematocrit 40 % (42-52); Hemoglobin 13.6 g/dl (14.0-18.0); Mean Corpuscular HGB Conc 34 g/dl (31-36); Mean Corpuscular Hemoglobin 33 pg (27-31); Mean Corpuscular Volume 96 fL (80-94); Mean Platelet Volume 7.2 um3 (7.4-10.4); Nucleated Red Blood Cells % 0.1; Platelet Count 180 10^3/ul (150-450); Red Blood Count 4.18 10^6/ul (4.00-5.40); Red Cell Distribution Width 15 % (10.5-15); White Blood Count 3.8 10^3/ul (3.5-10.8)
[2018-04-17 16:17] LABS: EGFR Non-African American 82.1 (>60)
[2018-04-17 16:23] LABS: INR 0.99 (0.77-1.02)
[2018-04-17 16:31] LABS: Urine Appearance Clear; Urine Blood Negative (Negative); Urine Color Yellow; Urine Ketones Negative (Negative); Urine Protein 2+(100 mg/dL) (Negative); Urine Red Blood Cell Trace(0-2/hpf) (Absent); Urine Specific Gravity 1.011 (1.010-1.030); Urine Urobilinogen Positive (Negative); Urine White Blood Cell Absent (Absent)
[2018-04-17] MEDS ORDERED: Lidocaine 1%* 5 ML VIAL ONE (16:33)
[2018-04-17 17:05] VITALS: BP 128/102
== END 2018-04-17 17:07 | disposition left against medical advice (07) ==
LOC: ED 14:47
DX: G40.509 Epileptic seizures related to external causes, not intractable, without status epilepticus (principal); F10.239 Alcohol dependence with withdrawal, unspecified; S01.01XA Laceration without foreign body of scalp, initial encounter; W19.XXXA Unspecified fall, initial encounter; Y92.481 Parking lot as the place of occurrence of the external cause; Z23 Encounter for immunization; I48.91 Unspecified atrial fibrillation; Z95.2 Presence of prosthetic heart valve; Z95.810 Presence of automatic (implantable) cardiac defibrillator; F17.210 Nicotine dependence, cigarettes, uncomplicated
CPT/HCPCS: 12001; 36415; 70450; 71046; 80053; 80177; 80307; 80320; 81003; 81015; 82550; 83605; 83735; 84443; 84484; 85025; 85610; 85730; 90471; 90715; 93005; 96360; 99283; A9270-GY; G0480; J3411

== ENCOUNTER 2018-06-11 10:01 | Inpatient (IN) | payer MEDICARE, MEDICAID ==
[2018-06-11] MEDS ORDERED: Nicotine Inhaler* 10 MG AMP INH PRN (10:03)
[2018-06-11] MEDS ORDERED: LORazepam TAB(*) 1 MG PO PRN (10:03)
--- OUTSIDE RECORDS SUMMARY | 2018-06-11 10:14 | XMS REPORT ---
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 ANALYSIS 44 RESULTS VERIFIED BY REPEAT ANALYSIS 45 RESULTS VERIFIED BY REPEAT ANALYSIS 46 2 light blue filled to the line 47 INTERNATIONAL NORMALIZED RATIO(INR) INDICATIONS INR RANGE PATIENTS [...] WITH AN UNACCEPTABLY HIGH RISK OF BLEEDING. 48 RESULTS VERIFIED BY REPEAT ANALYSIS 49 1 serum pour off from red top 50 Concentrations above 2.0 ng/mL are generally considered toxic. Some overlap of toxic and non-toxic values have been reported. Detection Limit=0.4 ng/mL Therapeutic range is derived from 2013 ACCF/AHA Guidelines for the Management of Heart Failure. 51 RESULTS VERIFIED BY REPEAT ANALYSIS 52 RESULTS VERIFIED BY REPEAT ANALYSIS 53 RESULTS VERIFIED BY REPEAT ANALYSIS 54 [facility] Severe Sepsis and Septic Shock Management Bundle Measure requires all lactic acids initially measuring >2.0 mmol/L be repeated. 55 REFERENCE VALUE 12.0 - 46.0 ADDITIONAL INFORMATION This test was developed and its performance characteristics determined by [facility] in a manner consistent with CLIA requirements. This test has not been cleared or approved by the U.S. Food and Drug Administration. Test Performed by: [address] [address] 56 Test Performed by: [facility] [address] [place] [address] [address] [place] [address] 57 Concentrations above 2.0 ng/mL are generally considered toxic. Some overlap of toxic and non-toxic values have been reported. Detection Limit=0.4 ng/mL 58 1pour off serum from red t op 59 Supervisor Asphalt Paving: [id number] ROMERO 60 RESULTS VERIFIED BY REPEAT ANALYSIS 61 RESULTS VERIFIED BY REPEAT ANALYSIS 62 FASTING 63 consistent w/ previous results 64 RESULTS VERIFIED BY REPEAT ANALYSIS interpret with caution remberto up in syringe 65 RESULTS VERIFIED BY REPEAT ANALYSIS 66 Reference Range and Interpretation: TnI (ng/mL) Interpretation Less Than 0.03 ng/mL Not supportive of diagnosis of HI 0.03 - 0.50 ng/mL Indeterminate: suggest serial studies if clinically indicated. Greater than 0.5 ng/mL Consistent with diagnosis of HI 67 Because ethnic data is not always readily [...] 15-29 5 Kidney failure <15 (or dialysis) 68 Reference Range and Interpretation: TnI (ng/mL) Interpretation Less Than 0.03 ng/mL Not supportive of diagnosis of HI 0.03 - 0.50 ng/mL Indeterminate: suggest serial studies if clinically indicated. Greater than 0.5 ng/mL Consistent with diagnosis of HI 69 Critical Result LACT:2.2 Called to [id number] at: 02:34:27 by:[email or web address] Read back by:[id number] [facility] Severe Sepsis and Septic Shock Management Bundle Measure requires all lactic acids initially measuring >2.0 mmol/L be repeated. 70 REFERENCE VALUE 12.0 - 46.0 Test Performed by: [address] [address] General Manager Food: Ivan Frost II, M.D., Ph.D. 71 2SST 72 Negative: < 0.8 Indeterminate: 0.8 - 0.9 Positive: > 0.9 In order to reduce the incidence of a false positive result, the CDC recommends that all s/co ratios between 1.0 and 10.9 be confirmed by a more specific supplemental or PCR testing. [facility] offers HCV Ab w/Reflex to Verification test #[id number]. 73 Index Value: Specimen reactivity relative to the negative cutoff. 74 RESULTS VERIFIED BY REPEAT ANALYSIS Procedures Date CPT Code Description Status Comment 03/26/2017 Colonoscopy Completed 03/19/2017 Colonoscopy Completed TA 3 years 04/18/2016 86389 Pulse Oximetry Completed 04/18/2016 52330 Electrocardiogram Complete Completed 03/07/2016 77534 Finger Or Heel Stick Completed 03/01/2016 00782 Finger Or Heel Stick Completed 02/16/2016 63230 Finger Or Heel Stick Completed 02/10/2016 31638 Finger Or Heel Stick Completed 01/31/2016 92879 Finger Or Heel Stick Completed 01/24/2016 80219 Finger Or Heel Stick Completed 01/19/2016 81795 Finger Or Heel Stick Completed Encounters Type Date Location Provider CPT E/M Dx Office Visit 04/26/2018 4:40p [place] [address] S01.01xD Z48.02 Office Visit 04/20/2018 9:20a [place] [address] S01.01xD G40.89 F31.0 W10.9xxD Office Visit 04/05/2018 3:00p [place] [address] F31.0 I73.9 G40.309 Z23 Office Visit 01/30/2018 4:40p [place] [address] S60.222A W01.198A Office Visit 01/16/2018 4:10p [place] [address] F31.0 F41.1 Office Visit 12/26/2017 1:00p [place] [address] F41.1 E03.9 Office Visit 11/21/2017 12:40p [place] [address] F41.1 G40.89 Office Visit 11/02/2017 2:40p [place] [address] F41.1 Office Visit 10/19/2017 3:50p [place] [address] F31.0 G40.89 F17.210 Office Visit 09/20/2017 4:40p [place] [address] F31.0 G40.89 I73.9 F17.210 G47.09 Office Visit 08/31/2017 9:50a [place] [address] R00.0 G40.309 F20.89 R06.00 Office Visit 08/22/2017 2:50p [place] [address] G40.89 Office Visit 07/25/2017 12:00p [place] [address] F31.0 E87.1 Office Visit 07/04/2017 2:00p [place] [address] G40.89 E87.1 R41.82 Office Visit 06/28/2017 11:00a Main Office Kellee Bangura M.D. 14334 F31.9 I73.9 I10 I48.0 Office Visit 06/11/2017 4:30p Main Office Kellee Bangura M.D. 99239 F31.9 I73.9 I10 F10.20 G40.309 I48.0 J44.9 S00.03xA Z48.02 Office Visit 05/07/2017 5:00p Main Office Kellee Bangura M.D. 98330 F31.9 I73.9 I10 F10.20 G60.8 G40.309 Office Visit 04/20/2017 4:30p [place] [address] I73.9 F31.9 Office Visit 12/21/2016 4:50p Main Office Kellee Bangura M.D. 40100 I10 I48.0 F10.20 F31.9 J44.9 I25.10 G40.309 R23.3 E80.7 Office Visit 12/01/2016 4:00p [facility] Kellee Bangura M.D. 85930 I10 G40.309 I25.10 J44.9 F31.9 R97.20 F10.20 I73.9 I48.0 D17.30 R94.6 Z12.11 Z00.01 G60.9 Office Visit 10/26/2016 7:30p Main Office Kellee Bangura M.D. 62643 J44.9 I10 I25.10 F31.9 G40.309 Z12.11 Office Visit 05/24/2016 2:45p Main Office Katrina Melo 86504 R49.0 Office Visit 04/18/2016 2:20p Main Office Kellee Bangura M.D. 25891 R07.89 I25.10 J44.9 F31.9 Office Visit 03/07/2016 3:40p Main Office Kellee Bangura M.D. 96822 J44.9 F31.9 I25.10 I48.0 G40.309 F10.20 Z12.11 E87.1 Z95.2 F17.210 Z71.6 Z79.01 Office Visit 01/19/2016 1:40p Main Office Autumn Lou M.D. 18018 Z79.01 I48.0 I34.0 Office Visit 12/21/2015 10:30a Main Office Katrina Melo 98135 R21 Office Visit 07/14/2015 10:20a Main Office Avtar Ring M.D. 61957 J44.9 I25.10 F17.210 F31.9 Office Visit 03/03/2015 3:30p Main Office Avtar Ring M.D. 08023 496 V74.5 Office Visit 02/17/2015 2:20p Main Office Avtar Ring M.D. 89304 786.05 305.1 110.4 Office Visit 01/20/2015 1:40p Main Office Avtar Ring M.D. 76280 424.1 345.10 443.9 296.80 303.90 Office Visit 12/02/2014 10:10a Main Office Avtar Ring M.D. 39835 444.09 356.8 295.80 424.1 496 Plan of Care Future Appointment(s):10/16/2018 12:00 pm - Autumn Urbina MD at Main E[facility]4005/17/2018 - Autumn Urbina MDI73.9 Peripheral vascular disease, kkqhwoepodiS77.10 Athscl heart disease of [place] coronary artery w/o ang pctrsAllComments:~B_~U_Medication Management~b_~u_ Patient Understands medications he's taking? Yes No Are there Barriers to Adherence? Yes No Has the patient been asked about herbal supplements and therapies, and OTC meds? Yes No
--- NOTE | 2018-06-11 10:18 | ED ---
Psychiatric Complaint - HPI Summary HPI Summary: Patient is a 63 y/o M brought in accompanied by EMS and police due to expressions of SI. Per police, patient called [facility] [place] this morning to make an appointment. Police state that during this phone call, patient stated that he "could not/did not want to live anymore" and that he would hang himself. EMS and police were called at this time by [facility] [place]. EMS states that patient did not express any SI to them and has been cooperative. EMS notes that patient has Hx of mobility issues. They also note that patient has slow speech, unsure if this is he baseline. Drug use is denied , patient reported alcohol consumption last night. No HI reported. PMHx of afib , patient is on cardizem, digoxin. In the room, patient states that he has not had any medical problems. On triage, associated severity is rated 3/10, nothing is noted to aggravate/alleviate Sx. Home medications and allergies are reviewed. - History Of Current Complaint Chief Complaint: EDMentalHealth Time Seen by Provider: 06/11/18 10:03 Hx Obtained From: Patient Onset/Duration: Still Present Timing: Constant Severity Currently: Mild - 3/10 on triage Character: Depressed Aggravating Factor(s): Nothing Alleviating Factor(s): Nothing Has Suicidal: Reports: Thoughts, With A Plan Has Homicidal: Denies: Thoughts - Allergies/Home Medications Allergies/Adverse Reactions: Allergies Allergy/AdvReac Type Severity Reaction Status Date / Time No Known Allergies Allergy Verified 01/08/18 16:25 Home Medications: Home Medications LORazepam TAB(*) [Ativan 1 MG TAB (*)] 2 mg PO BID 06/11/18 [History Confirmed 06/11/18] PMH/Surg Hx/FS Hx/Imm Hx Endocrine/Hematology History: Reports: Hx Anticoagulant Therapy Denies: Hx Diabetes, Hx Thyroid Disease Cardiovascular History: Reports: Hx Hypertension, Hx Pacemaker/ICD - [employer] -GUIANDANT - NOT MR SAFE/CONDITIONAL, Hx Peripheral Vascular Disease , Hx Valvular Heart Disease - Recent valve replacement surgery, Other Cardiovascular Problems/Disorders - Hx Atrial Fibrillation and was treatment with Warfarin which has been d/c'd Respiratory History: Reports: Hx Chronic Bronchitis, Hx Chronic Obstructive Pulmonary Disease (COPD), Other Respiratory Problems/Disorders - poss aspiration Denies: Hx Asthma History: Reports: Other Problems/Disorders - History of SIADH Denies: Hx Renal Disease Musculoskeletal History: Reports: Other Musculoskeletal History - peripheral neuropathy Denies: Hx Arthritis, Hx Osteoporosis Sensory History: Reports: Hx Cataracts, Hx Contacts or Glasses Denies: Hx Hearing Aid Opthamlomology History: Reports: Hx Cataracts, Hx Contacts or Glasses Neurological History: Reports: Hx Seizures, Other Neuro Impairments/Disorders - PERIPHERAL NEUROPATHY Denies: Hx Dementia Psychiatric History: Reports: Hx Anxiety, Hx Depression, Hx Panic Disorder, Hx Post Traumatic Stress Disorder, Hx Inpatient Treatment, Hx Community Mental Health Tx, Hx Bipolar Disorder, Hx Suicide Attempt, Hx of Violent Episodes Against Others, Hx Substance Abuse, Other Psychiatric Issues/Disorders - has had ECT treatment Denies: Hx Eating Disorder, Hx Schizophrenia - Surgical History Surgery Procedure, Year, and Place: cataracts removed. Hx Hernia Repair. AORTIC VALVE REPLACEMENT. PACEMAKER - Immunization History Date of Tetanus Vaccine: PT STATES UNSURE Date of Influenza Vaccine: NONE Infectious Disease History: Reports: Hx Tuberculosis - hx of inactive TB Denies: Hx Clostridium Difficile, Hx Hepatitis, Hx Human Immunodeficiency Virus (HIV), Hx of Known/Suspected MRSA, Hx Shingles, Hx Known/Suspected VRE, Hx Known/Suspected VRSA, History Other Infectious Disease - Family History Known Family History: Positive: Other - Mother -- depression, Father -- EtOH abuse - Social History Alcohol Use: Daily Alcohol Amount: REPORTS BEER WITH DINNER TONIGHT Hx Substance Use: Yes Substance Use Type: Reports: Marijuana Substance Use Comment - Amount & Last Used: last weekend Hx Tobacco Use: Yes Smoking Status (MU): Heavy Every Day Tobacco Smoker Type: Cigarettes Amount Used/How Often: 1/2 PPD Length of Time of Smoking/Using Tobacco: 40 YRS Have You Smoked in the Last Year: Yes Review of Systems Negative: Fever - on vitals, temp is 98 F Positive: Other - SI with plan All Other Systems Reviewed And Are Negative: Yes Physical Exam - Summary Physical Exam Summary: Appearance: Well-appearing, Well-nourished, lying in bed comfortable Skin: Warm, dry, no obvious rash Eyes: sclera anicteric, no conjunctival pallor ENT: mucous membranes moist Neck: deferred Respiratory: No signs of respiratory distress Cardiovascular: Appears well perfused, pulses are nml Abdomen: deferred Musculoskeletal: Moving all 4 extremities without obvious discomfort Neurological: Awake and alert, mentation is normal, speech is fluent and appropriate Psychiatric: affect is normal, does not appear anxious or depressed Triage Information Reviewed: Yes Vital Signs On Initial Exam: Initial Vitals Temp Pulse Resp BP Pulse Ox 98.0 F 74 16 103/83 99 06/11/18 10:10 06/11/18 10:10 06/11/18 10:10 06/11/18 10:10 06/11/18 10:10 Vital Signs Reviewed: Yes Diagnostics - Laboratory Result Diagrams: 06/12/18 06:36 06/12/18 06:36 Lab Statement: Any lab studies that have been ordered have been reviewed, and results considered in the medical decision making process. Re-Evaluation - Re-Evaluation First Eval Re-Evaluation Time: 11:28 Comment: Patient's sodium levels were discussed as well as possible causes of this. He is unsure of possible causes. Thoughts of self harm are denied in the room at this time by patient. Course/Dx - Course Course Of Treatment: Patient is a 63 y/o M brought in accompanied by EMS and police due to expressions of SI. Per police, patient called [facility] [place] this morning to make an appointment. Police state that during this phone call, patient stated that he "could not/did not want to live anymore" and that he would hang himself. EMS and police were called at this time by [facility] [place]. EMS states that patient did not express any SI to them and has been cooperative. EMS notes that patient has Hx of mobility issues. They also note that patient has slow speech, unsure if this is he baseline. Drug use is denied, patient reported alcohol consumption last night. No HI reported. PMHx of afib, patient is on cardizem, digoxin. In the room, patient states that he has not had any medical problems. Physical exam was normal. During ED course, patient received fluids; Nicotine Inhaler and Nicotine Mouth Piece, Ativan 1 mg PO Q4H PRN ANXEITY was ordered. UA showed trace ketones, positive urobilinogen. Tox screen showed presumptive positive of U cannabinoids. Labs showed RBC 5.42, MCH 32,chloride 83, total bilirubin 1.3, Alk Phos 108, TSH 10.83. Patients sodium was 117. Patient's sodium levels were discussed as well as possible causes of this. He is unsure of possible causes. Thoughts of self harm are denied in the room at this time by patient. Patients case was discussed with Dr. Barrios. Dr. Barrios accepts patient for admission. - Differential Dx/Clinical Impression Provider Diagnosis: Hyponatremia - Physician Notifications Discussed Care Of Patient With: Alivia Barrios Time Discussed With Above Provider: 11:34 Instructed by Provider To: Other - 1134 - Patients case was discussed with Dr. Barrios. Dr. Barrios accepts patient for admission. - Critical Care Time Critical Care Time: 30-74 min - Severe hyponatremia requiring IV saline, close monitoring, admission to ICU Discharge - Sign-Out/Discharge Documenting (check all that apply): Patient Departure - admit - Discharge Plan Condition: Stable Disposition: ADMITTED TO [facility] - Billing Disposition and Condition Condition: STABLE Disposition: Admitted to [facility] - Attestation Statements Document Initiated by Cristian: Yes Documenting Scribe: GUEVARA ROBLES Provider For Whom Cristian is Documenting (Include Credential): HEATHER GRESHAM MD Scribe Attestation: GUEVARA Meade , scribed for HEATHER GRESHAM MD on 06/12/18 at 1003. Scribe Documentation Reviewed: Yes Provider Attestation: The documentation as recorded by the GUEVARA fajardo accurately reflects the service I personally performed and the decisions made by me, HEATHER GRESHAM MD Status of Scribe Document: Viewed
[2018-06-11] MEDS ORDERED: Mouth Piece, Nicotine* 1 EACH CARTRIDGE INH ONE (11:00)
[2018-06-11 11:02] LABS: Urine Appearance Clear; Urine Blood Negative (Negative); Urine Color Amber; Urine Ketones Trace (Negative); Urine Protein Negative (Negative); Urine Specific Gravity 1.014 (1.010-1.030); Urine Urobilinogen Positive (Negative)
[2018-06-11 11:10] LABS: ABS Basophils 0 10^3/ul (0-0.2); ABS Eosinophils 0.1 10^3/ul (0-0.6); ABS Monocytes 0.5 10^3/ul (0-0.8); ABS Neutrophils 2.3 10^3/ul (1.5-7.7); ABS Nucleated RBC 0 10^3/ul; Eosinophil % 2.9 %; Hematocrit 49 % (42-52); Hemoglobin 17.2 g/dl (14.0-18.0); Lymphocyte % 25.8 %; Mean Corpuscular HGB Conc 35 g/dl (31-36); Mean Corpuscular Hemoglobin 32 pg (27-31); Mean Corpuscular Volume 90 fL (80-94); Mean Platelet Volume 8.2 fL (7.4-10.4); Nucleated Red Blood Cells % 0.6; Platelet Count 185 10^3/ul (150-450); Red Blood Count 5.43 10^6/ul (4.00-5.40); Red Cell Distribution Width 14 % (10.5-15)
[2018-06-11 11:21] LABS: EGFR Non-African American 74.6 (>60)
[2018-06-11] MEDS ORDERED: NS 0.9% 1000 ML* 1,000 ML IV ONE (11:26)
[2018-06-11] MEDS ORDERED: levETIRAcetam TAB* 500 MG PO ONE ×2 (13:52→14:23)
[2018-06-11] MEDS ORDERED: LORazepam TAB(*) 1 MG PO ONE (14:37)
--- NOTE | 2018-06-11 14:47 | PN ---
Progress Note - Progress Note Date of Service: 06/11/18 Note: Critical Care 63y M w/pmhx of bipolar disorder on zoloft and other mood stabilizer, seizures ( last >1 month back) on keppra, HTN, Afib?, peripheral neuropathy, active tobacco use, active alcohol use 2-3drinks daily, Aortic valve replacement 1-2 years back in [place], h/o SIADH in past? Brought to ER by police after he states he called his therapist, who wouldnt get time to put him in a slot, he was frustrated with [place] housing and policies. He may have said he wanted to kill himself but he he clearly states he does not want to. He knows the therapist would call the Police 'to cover himself'. He denies any intention to hurt himself. he is oriented to time/place/ person. he is compliant with medications. he states he has a court appointment tomorrow. He states he hasnt been eating well for days, making urine+, no diarrhea/fever/cough/sputum/chills/fevers. in ER he is calm, mood does fluctate. Physical exam without any overt abnormality or acute findings labs - noted Na 117, previous sodiums in upper 120s and 130s. serum osmo 252 ( low), urine sp grav 1.014, urine osmo 288, urine sodium 19. Impression -Severe Hyponatremia, asymptomatic; no history of extra-renal loss, not on diuretics; picture of urine osmo/serum osmo and urine na not consistent with SIADH -baseline Bipolar mood disorder -Threat of suicide attempt but clearly states he has no intention -alcohol abuse -active tobacco use Plan - asymptomatic; would hydrate IVF NS, restrict free water for now. NS 100cc /hr. check BMP q4h. Neprhology consult. Neurochecks q4 till na >120. may be 2/2 to poor intake. no hyperglycemia. he is hypothyroid and that may explain this also. check cortisol level. He is not overloaded, appears euvolemic otherwise. he is on an SSRI which could also ppt this. Stable for medical floor, discussed with Dr Sophie Hamm developer programmer
[2018-06-11] MEDS ORDERED: Al Hydrox/Mg Hydrox/Simet LIQ* 30 ML UDC PO PRN (15:05)
[2018-06-11] MEDS ORDERED: Acetaminophen TAB* 325 MG PO PRN (15:05)
[2018-06-11] MEDS ORDERED: Thiamine IV* 100 MG/ML 2 ML VIAL IM ONE (15:12)
[2018-06-11] MEDS ORDERED: LORazepam TAB(*) 1 MG PO SCH (16:00)
[2018-06-11] MEDS: Heparin VIAL(*) 5000 UNITS/ML VIAL (FIVE THOUSAND) SUBCUT SCH (20:40)
[2018-06-11] MEDS: levETIRAcetam TAB* 500 MG PO SCH (20:44)
[2018-06-11] MEDS: LORazepam TAB(*) 1 MG PO SCH (20:44)
[2018-06-11] MEDS: NS 0.9% 1000 ML* 1,000 ML IV SCH (23:25)
[2018-06-11 23:54] LABS: EGFR Non-African American 89.8 (>60)
[2018-06-12] MEDS: NS 0.9% 1000 ML* 1,000 ML IV SCH (00:31)
--- NOTE | 2018-06-12 03:05 | HP ---
CC: Dr. Lewis * HISTORY AND PHYSICAL: DATE OF ADMISSION: 06/11/18 PROVIDER: Kimberly Farrell NP PRIMARY CARE PROVIDER: Dr. Lewis. ATTENDING PHYSICIAN WHILE IN THE HOSPITAL: Dr. Alivia Callahan * (dictated by Kimberly Farrell NP). CHIEF COMPLAINT: Suicidal ideation, anger. HISTORY OF PRESENT ILLNESS: Mr. Cortez is a 63-year-old male with a past medical history significant for hypertension, SIADH, peripheral neuropathy, COPD , seizures, head trauma, AFib, history of alcohol abuse, and bipolar disorder, who presented to the emergency room today for evaluation of suicidal ideation. Per the report, the patient was talking to his therapist and made comments about how he wanted to kill himself and that he would hang himself. The patient reports that he was angry due to cancellation of several appointments with his therapist and his current living situation. He reports that he has not been eating much. Due to all these stressors, he made that comment. While in the emergency room, the patient had routine lab work. He was found to be hyponatremic with a sodium level of 117. The patient was aggressive in the ER and yelling at times out of anger. Due to his severe hyponatremia, we were asked to see and evaluate him for admission. PAST MEDICAL HISTORY: Significant for: 1. Hypertension. 2. History of SIADH. 3. Peripheral neuropathy. 4. Peripheral vascular disease. 5. COPD. 6. Seizures. 7. Head trauma. 8. AFib. 9. Alcohol abuse. 10. Bipolar disorder. PAST SURGICAL HISTORY: 1. Pacemaker. 2. Mitral valve replacement. 3. Cataract surgery. HOME MEDICATIONS: 1. Lorazepam 2 mg p.o. b.i.d. 2. Depakote 1500 mg p.o. q. a.m. 3. Keppra 750 mg t.i.d. 4. Incruse Ellipta 1 puff daily. 5. Breo 1 puff p.o. daily. FAMILY HISTORY: No reported history of coronary artery disease, diabetes, or cancer within the family. SOCIAL HISTORY: The patient reports he smoked a pack and a half a day. He reports daily alcohol use with approximately 6 beers daily. He does report pot use 2 to 3 times a week. He is disabled. He lives alone. Surrogate decision maker in the event he is unable to make his own decision would be his friend, Agustín. He is a full code. REVIEW OF SYSTEMS: There was no documented fever. There has been no unintended weight loss. Denies any chest pain or edema. Denies any cough, congestion, or hemoptysis. Denies any nausea or vomiting. Does report occasional diarrhea. Denies any abdominal pain. Denies any hematuria or dysuria. Denies any focal weakness or sensory loss. Denies any visual complaints. Denies any dysphagia, arthralgias or myalgias, rashes or lesions. Does report anger and increased anxiety. PHYSICAL EXAMINATION GENERAL: At this time, Mr. Cortez is a 63-year-old male. He appears agitated , sitting on the stretcher in the emergency room. No respiratory distress. VITAL SIGNS: Temperature is 97.9, heart rate is 79, respirations 16, O2 saturation 96% on room air, blood pressure 142/72. HEENT: Head is atraumatic, normocephalic. Eyes: EOMs are intact. Sclerae anicteric and not pale. Oral mucosa appears to be moist. NECK: Supple. LUNGS: Clear to auscultation bilaterally. No wheezes, rales or rhonchi. CARDIAC: S1, S2. Regular rate and rhythm. No murmurs, rubs or gallops. ABDOMEN: Soft and nontender. Bowel sounds are present x4. EXTREMITIES: Pulses were +2 bilaterally. He is able to move all 4 extremities with 5/5 strength. NEUROLOGIC: He is awake, alert, and oriented x3. His speech is clear. There are no gross focal deficits. SKIN: Intact. DIAGNOSTIC STUDIES AND LABORATORY DATA: WBCs are 4.0, RBCs 5.43, hemoglobin 17.2, hematocrit of 49, MCVs are 90, MCH is 32, platelet count was 185. Sodium was 117, potassium 4.7, chloride 83, carbon dioxide was 25. Anion gap was 9. BUN was 10, creatinine 1.01. Glucose was 84. Serum osmolality was 252. Calcium was 9.4. Total bilirubin was 1.30. ASTs were 30, ALTs were 21, alkaline phosphatase was 108. TSH is 10.83. Cortisol is 15.69. ASSESSMENT AND PLAN: Mr. Cortez is a 63-year-old male who presented to the emergency room with complaints of making statement to his therapist about suicidal thought stating that he would hang himself, so he was brought to the emergency room for further evaluation. While in the emergency room, he was found to be hyponatremic with a sodium level 117, so we were asked to admit him for further management. 1. Hyponatremia. I suspect this is related to SIADH. I will place him on normal saline, IV fluids. We will repeat sodium level at 1500 and we will continue IV fluids until his sodium is at 120-121. I will place him on normal saline at 125 cc per hour. I suspect that this could contribute to his anger and agitation. 2. Depression. I will consult Psychiatry for suicidal ideation. We will continue him on his home medications as previously prescribed. At this time, the patient denies any suicidal thoughts. 3. Chronic obstructive pulmonary disease. We will continue him on his Incruse inhaler and albuterol nebs as needed. 4. Seizures. We will continue on Depakote and Keppra. 5. Alcohol abuse. I will place him on WA protocol with Ativan as needed for withdrawal symptoms. 6. Tobacco abuse. Have a nicotine inhaler. 7. FEN. He will be placed on heart-healthy caffeine-okay diet. 8. DVT prophylaxis. I will place him on heparin subcu. 9. Code status. He is a full code. TIME SPENT: Time spent on this admission was 60 minutes, greater than half that time was spent [id number] with the patient obtaining my history and physical, the other half the time was spent going over my plan of care and implementing my plan of care. I have discussed this with my attending, Dr. Alivia Callahan; she is in agreement with my plan. KIMBERLY FARRELL, JEFFREY [id number]/CPS #: [id number] YARIEL
[2018-06-12 04:50] LABS: EGFR Non-African American 92.3 (>60)
[2018-06-12] MEDS: Heparin VIAL(*) 5000 UNITS/ML VIAL (FIVE THOUSAND) SUBCUT SCH ×3 (05:01→21:55)
[2018-06-12 06:57] LABS: ABS Basophils 0 10^3/ul (0-0.2); ABS Eosinophils 0.1 10^3/ul (0-0.6); ABS Lymphocytes 0.8 10^3/ul (1.0-4.8); ABS Monocytes 0.6 10^3/ul (0-0.8); ABS Neutrophils 2.1 10^3/ul (1.5-7.7); ABS Nucleated RBC 0 10^3/ul; Eosinophil % 3.3 %; Hematocrit 45 % (42-52); Hemoglobin 15.2 g/dl (14.0-18.0); Lymphocyte % 22.7 %; Mean Corpuscular HGB Conc 34 g/dl (31-36); Mean Corpuscular Hemoglobin 31 pg (27-31); Mean Corpuscular Volume 92 fL (80-94); Mean Platelet Volume 7.9 fL (7.4-10.4); Nucleated Red Blood Cells % 0.4; Platelet Count 122 10^3/ul (150-450); Red Blood Count 4.85 10^6/ul (4.00-5.40); Red Cell Distribution Width 14 % (10.5-15); White Blood Count 3.7 10^3/ul (3.5-10.8)
[2018-06-12 07:20] LABS: EGFR Non-African American 96.2 (>60)
[2018-06-12] MEDS: LORazepam TAB(*) 1 MG PO SCH ×2 (07:35→21:56)
[2018-06-12] MEDS: Folic Acid TAB* 1 MG PO SCH (07:35)
[2018-06-12] MEDS: Thiamine TAB* 100 MG TAB PO SCH (07:35)
[2018-06-12] MEDS: Divalproex ER TAB(*) 500 MG PO SCH (07:35)
[2018-06-12] MEDS: Multivitamins/Minerals TAB PO SCH (07:35)
[2018-06-12] MEDS: levETIRAcetam TAB* 500 MG PO SCH ×3 (07:36→21:55)
[2018-06-12] MEDS: NFT: Fluticasone/Vilanterol MDI(NF) 100/25 MDI INH SCH (07:39)
[2018-06-12] MEDS ORDERED: NS 0.9% 1000 ML* 1,000 ML IV SCH (10:00)
[2018-06-12 11:35] LABS: EGFR Non-African American 92.3 (>60)
--- NOTE | 2018-06-12 17:40 | CONSULT ---
Consult Consult: [facility] Inpatient Consult Note Date of Consult: 06/12/18 Reason for Consult: hyponatremia Reason for Admission: hyponatremia ASSESSMENT: 63 yo M with history of bipolar disorder, epilepsy and chronic hyponatremia secondary to SIADH, now presenting with suicidality and hypotonic hyponatremia with apparent euvolemia. Low urine sodium suggests superimposed effect of alcohol and/or malnutrition on top of pre-existing SIADH. Because isotonic saline can prolong or (rarely) worsen SIADH after correction of fluid deficit, it is important to discontinue IV fluids at this time. Fluid restriction is often sufficient to correct hyponatremia to previous baseline. Among home medications, Depakote is likely responsible for SIADH side effect and has been mostly effective for prevention of seizures, but this may be an opportunity to revisit AED therapy. PLAN: - d/c isotonic saline - start 1000ml/day fluid restriction - repeat urine Na + Osm - consider neurology consult for adjustments to anti-epileptic therapy SUBJECTIVE: History of Present Illness: 63 yo M presenting to [facility] via police escort for evaluation of suicidal ideation. Per ED report, made suicidal comments to therapist with intent and plan, also expressing anger about cancellation of several court appointments. In ED, he was found to have moderate hyponatremia ( Vy=110) without acute illness. Patient was combative and uncooperative in ED. He admits to drinking approximately 6 pack/day of regular beer. His seizure history goes back to 2003, when he had an unprovoked GTC seizure. He has been on AEDs since then (Depakote, Keppra) and his last seizure was 1 month ago, at which time his AED doses were adjusted. He has been followed by Dr. Horton for many years and, more recently, Dr. Phillip. He has never experienced an alcohol withdrawal seizure. Past Medical History: 1. Hypertension 2. History of SIADH 3. Peripheral neuropathy 4. Peripheral vascular disease 5. COPD 6. Seizures 7. Distant head trauma. 8. AFib 9. Alcohol abuse 10. Bipolar disorder Medications Prior to Admission: Fluticasone/Vilanterol MDI(NF) [Breo Ellipta MDI 100/25(NF)] 1 puff INH DAILY [History Confirmed 06/11/18] Divalproex ER TAB(*) [Depakote ER TAB(*)] 1,500 mg PO QAM 08/21/17 [History Confirmed 06/11/18] Umeclidinium 62.5 MDI(NF) [Incruse ELLIPTA MDI (NF)] 1 puff INH DAILY 03/28/18 [ History Confirmed 06/11/18] levETIRAcetam TAB* [Keppra TAB*] 750 mg PO TID 03/28/18 [History Confirmed 06/11] LORazepam TAB(*) [Ativan 1 MG TAB (*)] 2 mg PO BID 06/11/18 [History Confirmed 06/11/18] Inpatient Medications: Acetaminophen (Tylenol Tab*) 650 mg PO Q4H PRN PRN Reason: FEVER/PAIN Last Admin: 06/12/18 05:48 Dose: 650 mg Al Hydrox/Mg Hydrox/Simethicone (Maalox Plus*) 30 ml PO Q6H PRN PRN Reason: INDIGESTION Divalproex Sodium (Depakote Er Tab(*)) 1,500 mg PO QAM [facility] Last Admin: 06/12/18 07:35 Dose: 1,500 mg Fluticasone/Vilanterol (Breo Ellipta Mdi 100/25(Nf)) 1 puff INH DAILY [facility] Last Admin: 06/12/18 07:39 Dose: Not Given Folic Acid (Folvite Tab*) 1 mg PO DAILY [facility] Last Admin: 06/12/18 07:35 Dose: 1 mg Heparin Sodium (Porcine) (Heparin Vial(*)) 5,000 units SUBCUT Q8HR [facility] Last Admin: 06/12/18 14:08 Dose: 5,000 units Sodium Chloride (Ns 0.9% 1000 Ml*) 1,000 mls @ 125 mls/hr IV PER RATE [facility] Last Admin: 06/12/18 10:24 Dose: 125 mls/hr Levetiracetam (Keppra Tab*) 750 mg PO TID [facility] Last Admin: 06/12/18 14:08 Dose: 750 mg Lorazepam (Ativan Tab(*)) 1 mg PO BID [facility] Last Admin: 06/12/18 07:35 Dose: 1 mg Lorazepam (Ativan Tab(*)) 0 - [address] [facility] PROTOCOL [facility]; Protocol Multivitamins/Minerals (Theragran/Minerals Tab*) 1 tab PO DAILY [facility] Last Admin: 06/12/18 07:35 Dose: 1 tab Nicotine (Nicotine Inhaler*) 10 mg INH Q2H PRN PRN Reason: CRAVING Thiamine HCl (Vitamin B-1 Tab*) 100 mg PO DAILY [facility] Last Admin: 06/12/18 07:35 Dose: 100 mg Allergies/Intolerances: NKDA Social History: Lives alone. Agustín Blanchard is close friend and helps with maintenance. 6 pack/day beer, active tobacco use, denies drugs. Family History: No seizure or neurological disorders. Review of Systems: As above. No recent illness, including F, N, V, D. 10 system review otherwise normal OBJECTIVE: Temp Pulse Resp BP Pulse Ox 97.3 F 76 17 184/102 99 06/12/18 17:12 06/12/18 17:12 06/12/18 17:12 06/12/18 17:40 06/12/18 17:12 GEN: alert oriented, no distress ENT: neck supple, no thyromegaly, no bruit is heard Chest: CTAB, no wheezing or crackles CV: RRR, no murmur Abdomen: soft, non-tender Extremities: no edema, distal pulses intact Skin: warm, dry, no rash; lipomas present on abdomen Neuro: slow speech and reaction times, grossly intact motor/sensory in extremities Psych: restricted affect Labs: WBC 3.7 10^3/ul (3.5-10.8) 06/12/18 06:36 RBC 4.85 10^6/ul (4.00-5.40) 06/12/18 06:36 Hgb 15.2 g/dl (14.0-18.0) 06/12/18 06:36 Hct 45 % (42-52) 06/12/18 06:36 MCV 92 fL (80-94) 06/12/18 06:36 MCH 31 pg (27-31) 06/12/18 06:36 MCHC 34 g/dl (31-36) 06/12/18 06:36 RDW 14 % (10.5-15) 06/12/18 06:36 Plt Count 122 10^3/ul (150-450) L 06/12/18 06:36 MPV 7.9 fL (7.4-10.4) 06/12/18 06:36 Neut % (Auto) 57.1 % 06/12/18 06:36 Lymph % (Auto) 22.7 % 06/12/18 06:36 [place] % (Auto) 16.3 % 06/12/18 06:36 Eos % (Auto) 3.3 % 06/12/18 06:36 Baso % (Auto) 0.6 % 06/12/18 06:36 Absolute Neuts (auto) 2.1 10^3/ul (1.5-7.7) 06/12/18 06:36 Absolute Lymphs (auto) 0.8 10^3/ul (1.0-4.8) L 06/12/18 06:36 Absolute Monos (auto) 0.6 10^3/ul (0-0.8) 06/12/18 06:36 Absolute Eos (auto) 0.1 10^3/ul (0-0.6) 06/12/18 06:36 Absolute Basos (auto) 0 10^3/ul (0-0.2) 06/12/18 06:36 Absolute Nucleated RBC 0 10^3/ul 06/12/18 06:36 Nucleated RBC % 0.4 06/12/18 06:36 Sodium 120 mmol/L (135-145) L 06/12/18 11:03 Potassium 4.1 mmol/L (3.5-5.0) 06/12/18 11:03 Chloride 88 mmol/L (101-111) L 06/12/18 11:03 Carbon Dioxide 28 mmol/L (22-32) 06/12/18 11:03 Anion Gap 4 mmol/L (2-11) 06/12/18 11:03 BUN 9 mg/dL (6-24) 06/12/18 11:03 Creatinine 0.84 mg/dL (0.67-1.17) 06/12/18 11:03 Est GFR ( Amer) 111.7 (>60) 06/12/18 11:03 Est GFR (Non-Af Amer) 92.3 (>60) 06/12/18 11:03 BUN/Creatinine Ratio 10.7 (8-20) 06/12/18 11:03 Glucose 97 mg/dL (70-100) 06/12/18 11:03 Serum Osmolality 252 mOsm/kg (275-295) L 06/11/18 10:42 Calcium 8.4 mg/dL (8.6-10.3) L 06/12/18 11:03 Total Bilirubin 1.30 mg/dL (0.2-1.0) H 06/11/18 10:42 AST 30 U/L (13-39) 06/11/18 10:42 ALT 21 U/L (7-52) 06/11/18 10:42 Alkaline Phosphatase 108 U/L (34-104) H 06/11/18 10:42 Total Protein 7.7 g/dL (6.4-8.9) 06/11/18 10:42 Albumin 4.1 g/dL (3.2-5.2) 06/11/18 10:42 Globulin 3.6 g/dL (2-4) 06/11/18 10:42 Albumin/Globulin Ratio 1.1 (1-3) 06/11/18 10:42 TSH 10.83 mcIU/mL (0.34-5.60) H 06/11/18 10:42 Cortisol 15.69 mcg/dL 06/11/18 10:42 Urine Color Yessica 06/11/18 10:40 Urine Appearance Clear 06/11/18 10:40 Urine pH 5.0 (5-9) 06/11/18 10:40 Ur Specific [place] 1.014 (1.010-1.030) 06/11/18 10:40 Urine Protein Negative (Negative) 06/11/18 10:40 Urine Ketones Trace (Negative) A 06/11/18 10:40 Urine Blood Negative (Negative) 06/11/18 10:40 Urine Nitrate Negative (Negative) 06/11/18 10:40 Urine Bilirubin Negative (Negative) 06/11/18 10:40 Urine Urobilinogen Positive (Negative) A 06/11/18 10:40 Ur Leukocyte Esterase Negative (Negative) 06/11/18 10:40 Urine Osmolality 288 mOsm/kg (100-1150) 06/11/18 10:40 U Sodium Concentration 19 mmol/L 06/11/18 10:40 Urine Glucose Negative (Negative) 06/11/18 10:40 Salicylates < 2.50 mg/dL (<30) 06/11/18 10:42 Urine Opiates Screen None detected (None Detect) 06/11/18 10:40 Acetaminophen < 15 mcg/mL 06/11/18 10:42 Ur Barbiturates Screen None detected (None Detect) 06/11/18 10:40 Valproic Acid 99.0 mcg/mL (50-100) 06/11/18 11:48 Ur Phencyclidine Scrn None detected (None Detect) 06/11/18 10:40 Ur Amphetamines Screen None detected (None Detect) 06/11/18 10:40 U Benzodiazepines Scrn None detected (None Detect) 06/11/18 10:40 Urine Cocaine Screen None detected (None Detect) 06/11/18 10:40 U Cannabinoids Screen Presumptive positive (None Detect) A 06/11/18 10:40 Serum Alcohol < 10 mg/dL (<10) 06/11/18 10:42
--- NOTE | 2018-06-12 17:41 | PN ---
Subjective Date of Service: 06/12/18 Interval History: patient report that he want to go home, that he has important appointments today that he needs to make. Denies denies chest pain or shortness of breath. Denies suicidal or homicidal ideation. Denies fever or chills. Family History: Unchanged from Admission Social History: Unchanged from Admission Past Medical History: Unchanged from Admission Objective Active Medications: Acetaminophen (Tylenol Tab*) 650 mg PO Q4H PRN PRN Reason: FEVER/PAIN Last Admin: 06/12/18 05:48 Dose: 650 mg Al Hydrox/Mg Hydrox/Simethicone (Maalox Plus*) 30 ml PO Q6H PRN PRN Reason: INDIGESTION Divalproex Sodium (Depakote Er Tab(*)) 1,500 mg PO QAM [facility] Last Admin: 06/12/18 07:35 Dose: 1,500 mg Fluticasone/Vilanterol (Breo Ellipta Mdi 100/25(Nf)) 1 puff INH DAILY [facility] Last Admin: 06/12/18 07:39 Dose: Not Given Folic Acid (Folvite Tab*) 1 mg PO DAILY [facility] Last Admin: 06/12/18 07:35 Dose: 1 mg Heparin Sodium (Porcine) (Heparin Vial(*)) 5,000 units SUBCUT Q8HR [facility] Last Admin: 06/12/18 14:08 Dose: 5,000 units Sodium Chloride (Ns 0.9% 1000 Ml*) 1,000 mls @ 125 mls/hr IV PER RATE [facility] Last Admin: 06/12/18 10:24 Dose: 125 mls/hr Levetiracetam (Keppra Tab*) 750 mg PO TID [facility] Last Admin: 06/12/18 14:08 Dose: 750 mg Lorazepam (Ativan Tab(*)) 1 mg PO BID [facility] Last Admin: 06/12/18 07:35 Dose: 1 mg Lorazepam (Ativan Tab(*)) 0 - 6 mg PO .PER [facility] PROTOCOL [facility]; Protocol Multivitamins/Minerals (Theragran/Minerals Tab*) 1 tab PO DAILY [facility] Last Admin: 06/12/18 07:35 Dose: 1 tab Nicotine (Nicotine Inhaler*) 10 mg INH Q2H PRN PRN Reason: CRAVING Thiamine HCl (Vitamin B-1 Tab*) 100 mg PO DAILY [facility] Last Admin: 06/12/18 07:35 Dose: 100 mg Vital Signs - 8 hr 06/12/18 06/12/18 06/12/18 10:01 11:28 12:59 Temperature 97.1 F 97.9 F Pulse Rate 84 87 Respiratory 16 20 20 Rate Blood Pressure 156/80 158/85 (mmHg) O2 Sat by Pulse 100 99 Oximetry 06/12/18 06/12/18 06/12/18 14:08 14:57 16:18 Temperature 97.8 F Pulse Rate 74 Respiratory 16 14 16 Rate Blood Pressure 154/92 (mmHg) O2 Sat by Pulse 100 Oximetry Oxygen Devices in Use Now: None Appearance: appears calm, slightly aggiated sitting on the bed. no acute distress Eyes: No Scleral Icterus Ears/Nose/Mouth/Throat: Clear Oropharnyx, Mucous Membranes Moist Neck: NL Appearance and Movements; NL JVP, Trachea Midline Respiratory: Symmetrical Chest Expansion and Respiratory Effort, Clear to Auscultation Cardiovascular: NL Sounds; No Murmurs; No JVD, No Edema Abdominal: NL Sounds; No Tenderness; No Distention Extremities: No Edema, No Clubbing, Cyanosis Skin: No Rash or Ulcers, No Nodules or Sclerosis Neurological: Alert and Oriented x 3 Nutrition: Taking PO's Result Diagrams: 06/12/18 06:36 06/12/18 16:28 Assess/Plan/Problems-Billing Assessment: Mr. Cortez 63 y.o male with a past medical hx of bipolar , etoh abuse, sz, htn, hld who was brought to the emergency room d/t suicidal ideation. patient made comments to his therapist out of anger. while in the emergency room the patient was found to have profound hyponatremia - Patient Problems (1) Hyponatremia Current Visit: No Status: Acute Code(s): E87.1 - HYPO-OSMOLALITY AND HYPONATREMIA SNOMED Code(s): 98961270 Comment: improved some with IVF. SIADH - consulted Dr. Portillo - recommended stopping IVF and fluid restriction- ordered (2) Alcohol abuse Current Visit: No Status: Acute Code(s): F10.10 - ALCOHOL ABUSE, UNCOMPLICATED SNOMED Code(s): 37067759 Comment: [facility] protocol- scoring 1-3 today will continue to monitor SW consulted (3) HTN (hypertension) Current Visit: No Status: Acute Code(s): I10 - ESSENTIAL (PRIMARY) HYPERTENSION SNOMED Code(s): 84789410 Comment: not currently on medications at home will monitor and treat as needed hydralizine prn sbp greater that 180 (4) Bipolar disorder Current Visit: No Status: Chronic Priority: Medium Onset Date: 03/27/14 Comment: - Continue home medication regimen. (5) COPD (chronic obstructive pulmonary disease) Current Visit: No Status: Chronic Code(s): J44.9 - CHRONIC OBSTRUCTIVE PULMONARY DISEASE, UNSPECIFIED SNOMED Code(s): 69953428 Comment: cont breo, mild wheezing noted (6) Suicidal ideation Current Visit: Yes Status: Acute Code(s): R45.851 - SUICIDAL IDEATIONS SNOMED Code(s): 8895429 Comment: patient denies suicidal thoughts at this time seen and cleared by psych - has capcity to make decisions (7) DVT prophylaxis Current Visit: No Status: Acute Code(s): VCO3335 - SNOMED Code(s): 520544165 Comment: heparin (8) Full code status Current Visit: No Status: Acute Code(s): Z78.9 - OTHER SPECIFIED HEALTH STATUS SNOMED Code(s): 711684206 Status and Disposition: home when medically stable
[2018-06-12] MEDS ORDERED: hydrALAZINE IV* 20 MG/ML VIAL IV SLOW PU PRN (17:52)
[2018-06-12] MEDS ORDERED: hydrALAZINE IV* 20 MG/ML VIAL ONE (17:58)
[2018-06-12 19:01] LABS: EGFR Non-African American 99.1 (>60)
[2018-06-13] MEDS: Heparin VIAL(*) 5000 UNITS/ML VIAL (FIVE THOUSAND) SUBCUT SCH ×3 (05:02→20:38)
[2018-06-13 06:43] LABS: ABS Basophils 0.1 10^3/ul (0-0.2); ABS Eosinophils 0.1 10^3/ul (0-0.6); ABS Lymphocytes 0.9 10^3/ul (1.0-4.8); ABS Monocytes 0.7 10^3/ul (0-0.8); ABS Neutrophils 2.3 10^3/ul (1.5-7.7); ABS Nucleated RBC 0 10^3/ul; Eosinophil % 3.3 %; Hematocrit 46 % (42-52); Hemoglobin 15.6 g/dl (14.0-18.0); Lymphocyte % 22.6 %; Mean Corpuscular HGB Conc 34 g/dl (31-36); Mean Corpuscular Hemoglobin 31 pg (27-31); Mean Corpuscular Volume 91 fL (80-94); Mean Platelet Volume 7.9 fL (7.4-10.4); Nucleated Red Blood Cells % 0.3; Platelet Count 129 10^3/ul (150-450); Red Blood Count 5.03 10^6/ul (4.00-5.40); Red Cell Distribution Width 14 % (10.5-15); White Blood Count 4.1 10^3/ul (3.5-10.8)
[2018-06-13 07:01] LABS: EGFR Non-African American 93.6 (>60)
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
[2018-06-13] MEDS: NFT: Fluticasone/Vilanterol MDI(NF) 100/25 MDI INH SCH (07:44)
[2018-06-13] MEDS: Divalproex ER TAB(*) 500 MG PO SCH (09:23)
[2018-06-13] MEDS: Thiamine TAB* 100 MG TAB PO SCH (09:24)
[2018-06-13] MEDS: Multivitamins/Minerals TAB PO SCH (09:25)
[2018-06-13] MEDS: LORazepam TAB(*) 1 MG PO SCH ×2 (09:26→20:37)
[2018-06-13] MEDS: levETIRAcetam TAB* 500 MG PO SCH ×3 (09:27→20:37)
[2018-06-13] MEDS: Folic Acid TAB* 1 MG PO SCH (09:27)
--- NOTE | 2018-06-13 19:46 | PN ---
Subjective Date of Service: 06/13/18 Interval History: patient seen, no complains. no acute distress. doing well on WHAM. did not require prn sedations. Will D/C wham. Social History: Unchanged from Admission Past Medical History: Unchanged from Admission Objective Active Medications: Acetaminophen (Tylenol Tab*) 650 mg PO Q4H PRN PRN Reason: FEVER/PAIN Last Admin: 06/12/18 05:48 Dose: 650 mg Al Hydrox/Mg Hydrox/Simethicone (Maalox Plus*) 30 ml PO Q6H PRN PRN Reason: INDIGESTION Divalproex Sodium (Depakote Er Tab(*)) 1,500 mg PO QAM [facility] Last Admin: 06/13/18 09:23 Dose: 1,500 mg Fluticasone/Vilanterol (Breo Ellipta Mdi 100/25(Nf)) 1 puff INH DAILY [facility] Last Admin: 06/13/18 07:44 Dose: Not Given Folic Acid (Folvite Tab*) 1 mg PO DAILY [facility] Last Admin: 06/13/18 09:27 Dose: 1 mg Heparin Sodium (Porcine) (Heparin Vial(*)) 5,000 units SUBCUT Q8HR [facility] Last Admin: 06/13/18 13:35 Dose: 5,000 units Hydralazine HCl (Apresoline Iv*) 5 mg IV SLOW PU Q6H PRN PRN Reason: Systolic Bp Greater Than:180 Last Admin: 06/12/18 18:13 Dose: 5 mg Levetiracetam (Keppra Tab*) 750 mg PO TID [facility] Last Admin: 06/13/18 13:34 Dose: 750 mg Lorazepam (Ativan Tab(*)) 1 mg PO BID [facility] Last Admin: 06/13/18 09:26 Dose: 1 mg Lorazepam (Ativan Tab(*)) 0 - 6 mg PO .PER [facility] PROTOCOL [facility]; Protocol Multivitamins/Minerals (Theragran/Minerals Tab*) 1 tab PO DAILY [facility] Last Admin: 06/13/18 09:25 Dose: 1 tab Nicotine (Nicotine Inhaler*) 10 mg INH Q2H PRN PRN Reason: CRAVING Thiamine HCl (Vitamin B-1 Tab*) 100 mg PO DAILY [facility] Last Admin: 06/13/18 09:24 Dose: 100 mg Vital Signs - 8 hr 06/13/18 15:42 Temperature 98.4 F Pulse Rate 93 Respiratory 20 Rate Blood Pressure 151/91 (mmHg) O2 Sat by Pulse 100 Oximetry Oxygen Devices in Use Now: None Appearance: awake, resting. no distress Eyes: No Scleral Icterus, - - EOMI Ears/Nose/Mouth/Throat: NL Teeth, Lips, Gums Neck: NL Appearance and Movements; NL JVP Respiratory: Symmetrical Chest Expansion and Respiratory Effort, Clear to Auscultation Cardiovascular: NL Sounds; No Murmurs; No JVD, - - irregularly irregular Abdominal: NL Sounds; No Tenderness; No Distention Extremities: No Edema Neurological: Alert and Oriented x 3 Result Diagrams: 06/13/18 06:23 06/13/18 06:23 Assess/Plan/Problems-Billing Assessment: Mr. Cortez 63 y.o male with a past medical hx of bipolar , etoh abuse, sz, htn, hld who was brought to the emergency room d/t suicidal ideation. patient made comments to his therapist out of anger. while in the emergency room the patient was found to have profound hyponatremia - Patient Problems (1) Hyponatremia Current Visit: No Status: Acute Code(s): E87.1 - HYPO-OSMOLALITY AND HYPONATREMIA SNOMED Code(s): 86034385 Comment: SIADH - consulted Dr. Portillo - recommended stopping IVF and fluid restriction- (2) Alcohol abuse Current Visit: No Status: Acute Code(s): F10.10 - ALCOHOL ABUSE, UNCOMPLICATED SNOMED Code(s): 05851916 Comment: [facility] protocol- discontinue. did not require intervention will continue to monitor SW consulted (3) Afib Current Visit: No Status: Acute Code(s): I48.91 - UNSPECIFIED ATRIAL FIBRILLATION SNOMED Code(s): 69407170 (4) HTN (hypertension) Current Visit: No Status: Acute Code(s): I10 - ESSENTIAL (PRIMARY) HYPERTENSION SNOMED Code(s): 07977708 Comment: not currently on medications at home will monitor and treat as needed hydralizine prn sbp greater that 180
[2018-06-14] MEDS: Heparin VIAL(*) 5000 UNITS/ML VIAL (FIVE THOUSAND) SUBCUT SCH (05:51)
[2018-06-14] MEDS: NFT: Fluticasone/Vilanterol MDI(NF) 100/25 MDI INH SCH (07:40)
[2018-06-14] MEDS: Multivitamins/Minerals TAB PO SCH (08:13)
[2018-06-14] MEDS: LORazepam TAB(*) 1 MG PO SCH (08:13)
[2018-06-14] MEDS: Folic Acid TAB* 1 MG PO SCH (08:14)
[2018-06-14] MEDS: Thiamine TAB* 100 MG TAB PO SCH (08:14)
[2018-06-14] MEDS: Divalproex ER TAB(*) 500 MG PO SCH (08:14)
[2018-06-14] MEDS: levETIRAcetam TAB* 500 MG PO SCH (08:14)
[2018-06-14 08:18] LABS: ABS Basophils 0 10^3/ul (0-0.2); ABS Eosinophils 0.1 10^3/ul (0-0.6); ABS Monocytes 0.6 10^3/ul (0-0.8); ABS Neutrophils 2.2 10^3/ul (1.5-7.7); ABS Nucleated RBC 0 10^3/ul; Eosinophil % 2.2 %; Hematocrit 46 % (42-52); Hemoglobin 15.7 g/dl (14.0-18.0); Mean Corpuscular HGB Conc 34 g/dl (31-36); Mean Corpuscular Hemoglobin 31 pg (27-31); Mean Corpuscular Volume 91 fL (80-94); Nucleated Red Blood Cells % 0.3; Platelet Count 141 10^3/ul (150-450); Red Blood Count 5.04 10^6/ul (4.00-5.40); Red Cell Distribution Width 14 % (10.5-15); White Blood Count 3.9 10^3/ul (3.5-10.8)
[2018-06-14 08:30] LABS: EGFR Non-African American 87.5 (>60)
--- NOTE | 2018-06-14 10:48 | PN ---
Subjective Date of Service: 06/14/18 Interval History: Patient is awake, doing well. More awake and more alert than yesterday. He is denying any suicidal thoughts. No homicidal thoughts. asking to be discharged. He is taking po well and I personally went over his fluid restrictions and water restrictions. decrease ETOH intake he verbalized understanding but he was honest as well and he did not commit that he will adhere to it. clinically today his sodium is about the same 124-125. no sign of distress and he is asking to be discharged. No nausea or vomiting. Social History: Unchanged from Admission Past Medical History: Unchanged from Admission Objective Active Medications: Acetaminophen (Tylenol Tab*) 650 mg PO Q4H PRN PRN Reason: FEVER/PAIN Last Admin: 06/12/18 05:48 Dose: 650 mg Al Hydrox/Mg Hydrox/Simethicone (Maalox Plus*) 30 ml PO Q6H PRN PRN Reason: INDIGESTION Divalproex Sodium (Depakote Er Tab(*)) 1,500 mg PO QAM [facility] Last Admin: 06/14/18 08:14 Dose: 1,500 mg Fluticasone/Vilanterol (Breo Ellipta Mdi 100/25(Nf)) 1 puff INH DAILY [facility] Last Admin: 06/14/18 07:40 Dose: Not Given Folic Acid (Folvite Tab*) 1 mg PO DAILY [facility] Last Admin: 06/14/18 08:14 Dose: 1 mg Heparin Sodium (Porcine) (Heparin Vial(*)) 5,000 units SUBCUT Q8HR [facility] Last Admin: 06/14/18 05:51 Dose: 5,000 units Hydralazine HCl (Apresoline Iv*) 5 mg IV SLOW PU Q6H PRN PRN Reason: Systolic Bp Greater Than:180 Last Admin: 06/12/18 18:13 Dose: 5 mg Levetiracetam (Keppra Tab*) 750 mg PO TID [facility] Last Admin: 06/14/18 08:14 Dose: 750 mg Lorazepam (Ativan Tab(*)) 1 mg PO BID [facility] Last Admin: 06/14/18 08:13 Dose: 1 mg Lorazepam (Ativan Tab(*)) 0 - 6 mg PO .PER [facility] PROTOCOL [facility]; Protocol Multivitamins/Minerals (Theragran/Minerals Tab*) 1 tab PO DAILY [facility] Last Admin: 06/14/18 08:13 Dose: 1 tab Nicotine (Nicotine Inhaler*) 10 mg INH Q2H PRN PRN Reason: CRAVING Thiamine HCl (Vitamin B-1 Tab*) 100 mg PO DAILY [facility] Last Admin: 06/14/18 08:14 Dose: 100 mg Vital Signs - 8 hr 06/14/18 06/14/18 06/14/18 07:46 08:00 08:13 Temperature 97.9 F Pulse Rate 69 Respiratory 18 16 18 Rate Blood Pressure 149/81 (mmHg) O2 Sat by Pulse 96 Oximetry Oxygen Devices in Use Now: None Appearance: awake, alert. no distress Eyes: No Scleral Icterus, - - EOMI Ears/Nose/Mouth/Throat: NL Teeth, Lips, Gums, Mucous Membranes Moist Neck: NL Appearance and Movements; NL JVP, Trachea Midline Respiratory: Symmetrical Chest Expansion and Respiratory Effort, Clear to Auscultation Cardiovascular: NL Sounds; No Murmurs; No JVD, RRR Abdominal: NL Sounds; No Tenderness; No Distention Extremities: No Edema Neurological: Alert and Oriented x 3 Result Diagrams: 06/14/18 07:41 06/14/18 07:41 Assess/Plan/Problems-Billing Assessment: Mr. Cortez 63 y.o male with a past medical hx of bipolar , etoh abuse, sz, htn, hld who was brought to the emergency room d/t suicidal ideation. patient made comments to his therapist out of anger. while in the emergency room the patient was found to have profound hyponatremia - Patient Problems (1) Hyponatremia Current Visit: No Status: Acute Code(s): E87.1 - HYPO-OSMOLALITY AND HYPONATREMIA SNOMED Code(s): 18311542 Comment: - Na+ hovering around 125; which is around his baseline. I did emphaaize the importance of fluid restriciton and avoidance of ETOH - consulted Dr. Portillo - recommended stopping IVF and fluid restriction (2) Alcohol abuse Current Visit: No Status: Acute Code(s): F10.10 - ALCOHOL ABUSE, UNCOMPLICATED SNOMED Code(s): 94148221 Comment: - [facility] protocol- discontinue. did not require intervention - will continue to monitor - SW consulted, refer back to his outpatient mental health (3) Afib Current Visit: No Status: Acute Code(s): I48.91 - UNSPECIFIED ATRIAL FIBRILLATION SNOMED Code(s): 50528374 Comment: - I do not see him on anticoagulation, I am not sure if it is due to alcohol and non compliance and risk of falls etc... Records from previous hospitalization did reflect the following comment "... rate controlled, not anticoagulated, suspect due to h/o alcoholism and seizures, cont Digoxin, lopressor, Cardizem..." - I will defer to his outpatient PCP/Cardiology (violetta reich) - I called his pharmacy ([facility]) and I did review most recent Rx with his pharmacist. He did state that last time he did fill Rx of lopressor 25 xl; pletal 100 mg bid, diltiazem 120 daily, digoxin .25 mg daily, Zoloft 100 mg daily and zyprexa, goes back to 03/06/18 and warfarin has not been filled since 2016. therefore, I elected to place him on aspirin 81 mg daily, pletal 100 mg bid and toprol XL 25 mg daily. I did defer resuming rest of the medications listed until he follows with his PCP, Mental health and Dr. Reich. (4) HTN (hypertension) Current Visit: No Status: Acute Code(s): I10 - ESSENTIAL (PRIMARY) HYPERTENSION SNOMED Code(s): 39125283 Comment: - not currently on medications at home - BP in the 180s. I will place him on toprol XL 25 mg daily which will offer rate control and BP control. will need to have follow up with PCP and cardiology (5) PAD (peripheral artery disease) Current Visit: No Status: Acute Code(s): I73.9 - PERIPHERAL VASCULAR DISEASE , UNSPECIFIED SNOMED Code(s): 124546147 Comment: - chronic, Previously in his his chart I see he was on Pletal, but now his home med list does not show even aspirin or pletal - He sees a vascular in [facility] but he tells me they do not operate unless he quit smoking (6) Bipolar disorder Current Visit: No Status: Chronic Priority: Medium Onset Date: 03/27/14 Comment: - Continue home medication regimen. (depakote and keppra) (7) COPD (chronic obstructive pulmonary disease) Current Visit: No Status: Chronic Code(s): J44.9 - CHRONIC OBSTRUCTIVE PULMONARY DISEASE, UNSPECIFIED SNOMED Code(s): 98051129 Comment: - cont caitlino, - Smoking cessation, he was counseled but did not seem to be very receptive (8) History of hypertension Current Visit: No Status: Chronic Priority: Medium Code(s): Z86.79 - PERSONAL HISTORY OF OTHER DISEASES OF THE CIRCULATORY SYSTEM SNOMED Code(s): 681289444 (9) Seizure disorder Current Visit: No Status: Chronic Priority: Medium Onset Date: 03/27/14 Code(s): G40.909 - EPILEPSY, UNSP, NOT INTRACTABLE, WITHOUT STATUS EPILEPTICUS SNOMED Code(s): 770410925 Comment: Cont Valproic acid and Keppra h/o med nonadherence Status and Disposition: home when medically stable
[2018-06-14 11:24] VITALS: BP 151/93
--- NOTE | 2018-06-16 02:25 | DS ---
CC: Rosales Reich MD; [facility]; Dr. Louie Lewis; Reyes Lee MD DISCHARGE SUMMARY: DATE OF ADMISSION: 06/11/18 DATE OF DISCHARGE: 06/14/18 [employer] MECHANIC: Rosales Reich MD PRIMARY CARE PROVIDER: Lopez Beck MD FINAL DISCHARGE DIAGNOSES: 1. Hyponatremia secondary to alcohol and syndrome of inappropriate antidiuretic hormone secretion in duced. 2. History of atrial fibrillation, noncompliance . 3. Bipolar disorder. 4. History of known seizure disorder. 5. History of peripheral artery disease. 6. History of chronic obstructive pulmonary disease. HOSPITAL COURSE: The patient presented to [facility] on 06/11/18 with suicidal ideation, anger manifestation after he verbalized to his therapist over the phone that he wanted to kill himsel f and he wanted to hang himself. He was admitted to the medicine service and Psych consultation was obtained. The patient on further questioning with the psychiatrist on admission, he report that he w as angry due to cancellation of several appointment with his therapist and he frustrated [facility] and several stressors through his life. Therefore, he commented over the phone to his therapist which led to him coming into the hospital. In the emergency room, on admission, the p atnahum was found to be hyponatremic with a sodium 117 and he was manifesting increased temper and dominick tation during the ER. Given his hyponatremia, he was deemed mildly confused and incompetent to sign himself and be released, hence medicine service was called for further evaluation. The patient was b rought into the medicine service. He was placed on normal saline and followup routine blood work to normalize his sodium and Psych consult was obtained as well and he was placed on the [facility] protocol. T he patient was seen by Psychiatry, Shefali Cortez NP and he was deemed safe for discharge. He was n ot considered to be threat to himself or others and recommended continued medical therapy treatment a nd follow up with director social service outpatient and they signed off. At the same time, consultation with Dr. Portillo for his hyponatremia was obtained, recommended to place him on fluid restriction and recomme nded adjustment of his antiepileptic therapy for antiseizure meds and his bipolar. The patient was s een by me on 06/13/18. He was doing well. He was more awake and alert. Denies any homicidal or austin cidal thoughts. He was asking to be discharged. Sodium level is 125. I was able to convince him to remain 1 more day in the hospital until I reassess him in the morning. He remained very calm, alex ative, and following day, he was again seen. He continued to be well mannered, cooperative and that he was insisting on being released as he would like to go home. His sodium did improve to 125 and 12 4 from 119. I explained to him the importance of limiting water intake and decrease alcohol given hi s oral medication which known to cause decreased salt intake. I did not change or alter his Depakote nor his Keppra. I defer that to his outpatient neurologist. He was ambulating through the hallway, conversing, following command; hence, I deemed him stable for discharge with the fluid restriction 1 500 cc/24 hour, which was placed on his discharge instruction, absence from alcohol and to follow up with his neurologist and psychiatrist as an outpatient. Also, during the discharge process, I did re wade that the patient did not have an accurate medication list on admission; hence, I did speak with his pharmacy which brought to my attention that it has been a long time since he filled his warfarin over 2 years, which I presume was discontinued due to risk of falling with alcohol abuse and noncomp liance. At the same time, he has not filled his outpatient medication that is prescribed by his card iologist, Dr. Reich, which were mainly the Lopressor 25 XL, Pletal 100 b.i.d., diltiazem 120 daily a nd digoxin 0.25. Given his known history of AFib and peripheral artery disease, I did prescribe for him Lopressor, Pletal and aspirin and asked him to resume and to follow up with Dr. Reich for reesta blishment. With above recommendation and assessment, the patient is deemed stable for discharge, he is confident to make his own decision and make his appointment if he choose to and follow up with the instructions as outlined. Fortunately, he is ambulatory, tolerating p.o., alert, awake, and will de deysi further management for outpatient therapy. DISCHARGE PHYSICAL EXAM: Please refer to my progress note done earlier that day on 06/14/18. DISCHARGE MEDICATIONS: 1. Aspirin 81 mg daily. 2. Pletal 100 mg b.i.d. 3. Metoprolol XL 25 mg daily. 4. Continue his Breo 1 puff every day. 5. Depakote 150 mg every morning. 6. Keppra 750 mg 3 times a day. 7. Incruse 62.5 one puff inhaler daily. 8. Lorazepam 2 mg twice a day. FOLLOWUP INSTRUCTIONS: 1. The patient was advised to follow up with Dr. Rosales Reich in 1 to 2 weeks. 2. Follow up with [facility] in 4 to 7 days. 3. Follow up with PCP, Dr. Louie Lewis, in 1 to 2 weeks. DISCHARGE INSTRUCTION AND RECOMMENDATIONS: Further adjustment of his antiepileptic seizures need to be considered given his hyponatremia. I will defer that to his neurologist as they may know him more and whether or not will jeopardize increase of seizures by alternating his drugs. I will defer that to his neurologist outpatient that knows him more. INPATIENT DIAGNOSTIC STUDY: The patient had consultation with Psychiatry, Shefali Cortez. Consultat ion with o and m supervisorMartin. [id number]/[facility] #: [id number]
== END 2018-06-14 13:00 | disposition home or self-care (01) | DRG 644 ==
LOC: ED 10:01 → MEDTELE 15:05
PROVIDERS: ADMIT Internal Medicine; ATTEND Internal Medicine
DX: E22.2 Syndrome of inappropriate secretion of antidiuretic hormone (principal); R45.851 Suicidal ideations; I48.91 Unspecified atrial fibrillation; I10 Essential (primary) hypertension; I73.9 Peripheral vascular disease, unspecified; J44.9 Chronic obstructive pulmonary disease, unspecified; G62.9 Polyneuropathy, unspecified; F41.0 Panic disorder [episodic paroxysmal anxiety]; F17.210 Nicotine dependence, cigarettes, uncomplicated; G40.909 Epilepsy, unspecified, not intractable, without status epilepticus; R19.7 Diarrhea, unspecified; F60.2 Antisocial personality disorder; F10.10 Alcohol abuse, uncomplicated; F12.90 Cannabis use, unspecified, uncomplicated; Y90.9 Presence of alcohol in blood, level not specified; F31.9 Bipolar disorder, unspecified; F43.10 Post-traumatic stress disorder, unspecified; Z98.42 Cataract extraction status, left eye; Z98.41 Cataract extraction status, right eye; Z86.11 Personal history of tuberculosis; Z81.8 Family history of other mental and behavioral disorders; Z81.1 Family history of alcohol abuse and dependence; Z95.2 Presence of prosthetic heart valve; Z91.14 Patient's other noncompliance with medication regimen; Z79.82 Long term (current) use of aspirin
CPT/HCPCS: 36415; 80048; 80053; 80164; 80307; 80320; 80329; 81003; 82533; 83735; 83930; 83935; 84100; 84300; 84443; 85025; 93005; 99284; A9270-GY; G0480; J0360; J1644; J3411

== ENCOUNTER → 2018-06-18 13:50 | Emergency (ER) | payer MEDICARE, MEDICAID ==
[~2018-06-18 13:50] MED LIST: NS 0.9% 1000 ML* 1,000 ML IV ONE; levETIRAcetam IV* 1,000 MG in NS 0.9% 100 ML* 100 ML IVPB ONE
--- NOTE | 2018-06-18 14:17 | ED ---
Complex/Multi-Sys Presentation - HPI Summary HPI Summary: This pt is a 63 y/o male presenting to [facility] via EMS for an unresponsive episode today. EMS reports pt was found unresponsive under a park bench. Per EMS , blood glucose was 118 and pt was a little hypertensive and on afib rhythm. Pt remained unresponsive even after Narcan. EMS notes pt has hx of seizures. Pt denies any alcohol consumption but EMS is able to smell some in his breath. Pt does not know what happened or why he's here. Pt reports he has had lack of sleep and feel fatigued. Denies any injuries. Denies any pain, chest pain, abd pain, SOB, fever, neck pain. Pt is on Keppra and Depakote. He reports there have been days where he had missed some doses. Pt admits to some marijuana use, although he soon after is unsure and states "I don't think so." Denies alcohol use. - History Of Current Complaint Time Seen by Provider: 06/18/18 14:04 Hx Obtained From: Patient, EMS Onset/Duration: Sudden Onset, Resolved Severity Currently: None Severity Initially: Moderate Location: Negative Aggravating Factor(s): nothing Alleviating Factor(s): nothing Associated Signs And Symptoms: Positive: Other - POS: was unresponsive per EMS, fatigue, lack of sleep. NEG: neck pain, any pain. Negative: SOB, Chest Pain, Palpitations, Abdominal Pain, Fever - Allergies/Home Medications Allergies/Adverse Reactions: Allergies Allergy/AdvReac Type Severity Reaction Status Date / Time No Known Allergies Allergy Verified 06/18/18 14:24 Home Medications: Home Medications Aspirin EC TAB* [Ecotrin EC Low Dose 81 MG*] 81 mg PO DAILY 06/18/18 [History Confirmed 06/18/18] Atorvastatin* [Lipitor*] 20 mg PO DAILY 06/18/18 [History Confirmed 06/18/18] Digoxin TAB* [Lanoxin TAB*] 0.25 mg PO DAILY 06/18/18 [History Confirmed ] Diltiazem CD CAP* [Cardizem CD CAP*] 240 mg PO DAILY 06/18/18 [History Confirmed 06/18/18] Levothyroxine TAB* [Synthroid TAB*] 25 mcg PO DAILY 06/18/18 [History Confirmed 06/18/18] Sertraline* [Zoloft*] 100 - 200 mg PO DAILY 06/18/18 [History Confirmed 06/18/18 ] Tiotropium CAP.INH* [Spiriva CAP.INH*] 2 cap.inh INH DAILY 06/18/18 [History Confirmed 06/18/18] PMH/Surg Hx/FS Hx/Imm Hx Endocrine/Hematology History: Reports: Hx Anticoagulant Therapy Denies: Hx Diabetes, Hx Thyroid Disease Cardiovascular History: Reports: Hx Hypertension, Hx Pacemaker/ICD - [employer] -[employer]ANDANT - NOT MR SAFE/CONDITIONAL, Hx Peripheral Vascular Disease , Hx Valvular Heart Disease - Recent valve replacement surgery, Other Cardiovascular Problems/Disorders - Hx Atrial Fibrillation and was treatment with Warfarin which has been d/c'd Respiratory History: Reports: Hx Chronic Bronchitis, Hx Chronic Obstructive Pulmonary Disease (COPD), Other Respiratory Problems/Disorders - poss aspiration Denies: Hx Asthma History: Reports: Other Problems/Disorders - History of SIADH Denies: Hx Renal Disease Musculoskeletal History: Reports: Other Musculoskeletal History - peripheral neuropathy Denies: Hx Arthritis, Hx Osteoporosis Sensory History: Reports: Hx Cataracts, Hx Contacts or Glasses Denies: Hx Hearing Aid Opthamlomology History: Reports: Hx Cataracts, Hx Contacts or Glasses Neurological History: Reports: Hx Seizures, Other Neuro Impairments/Disorders - PERIPHERAL NEUROPATHY Denies: Hx Dementia Psychiatric History: Reports: Hx Anxiety, Hx Depression, Hx Panic Disorder, Hx Post Traumatic Stress Disorder, Hx Inpatient Treatment, Hx Community Mental Health Tx, Hx Bipolar Disorder, Hx Suicide Attempt, Hx of Violent Episodes Against Others, Hx Substance Abuse, Other Psychiatric Issues/Disorders - has had ECT treatment Denies: Hx Eating Disorder, Hx Schizophrenia - Surgical History Surgery Procedure, Year, and Place: cataracts removed. Hx Hernia Repair. AORTIC VALVE REPLACEMENT. PACEMAKER - Immunization History Date of Tetanus Vaccine: PT STATES UNSURE Date of Influenza Vaccine: NONE Infectious Disease History: Reports: Hx Tuberculosis - hx of inactive TB Denies: Hx Clostridium Difficile, Hx Hepatitis, Hx Human Immunodeficiency Virus (HIV), Hx of Known/Suspected MRSA, Hx Shingles, Hx Known/Suspected VRE, Hx Known/Suspected VRSA, History Other Infectious Disease - Family History Known Family History: Positive: Other - Mother -- depression, Father -- EtOH abuse - Social History Alcohol Use: Daily Alcohol Amount: REPORTS BEER WITH DINNER TONIGHT Hx Substance Use: Yes Substance Use Type: Reports: Marijuana Substance Use Comment - Amount & Last Used: last weekend Hx Tobacco Use: Yes Smoking Status (MU): Heavy Every Day Tobacco Smoker Type: Cigarettes Amount Used/How Often: 1/2 PPD Length of Time of Smoking/Using Tobacco: 40 YRS Have You Smoked in the Last Year: Yes Review of Systems Positive: Fatigue. Negative: Fever, Chills Negative: Erythema Negative: Sore Throat Negative: Chest Pain Negative: Shortness Of Breath, Cough Negative: Abdominal Pain, Vomiting, Nausea Negative: dysuria, hematuria Negative: Myalgia, Edema, Other - neck pain Negative: Rash Neurological: Other - NEGATIVE: dizziness. POSITIVE: was unresponsive All Other Systems Reviewed And Are Negative: Yes Physical Exam - Summary Physical Exam Summary: Constitutional: Well-developed, Well-nourished, Alert. (-) Distressed Skin: Warm, Dry HENT: Normocephalic; Atraumatic. Mucous membranes are dry. Eyes: Conjunctiva normal Neck: Musculoskeletal ROM normal neck. (-) JVD, (-) Stridor, (-) Tracheal deviation Cardio: Rhythm regular, rate normal, Heart sounds normal; Intact distal pulses; The pedal pulses are 2+ and symmetric. Radial pulses are 2+ and symmetric. (-) Murmur Pulmonary/Chest wall: Effort normal. (-) Respiratory distress, (-) Wheezes, (-) Rales Abd: Soft, (-) Tenderness, (-) Distension, (-) Guarding, (-) Rebound Musculoskeletal: (-) Edema Lymph: (-) Cervical adenopathy Neuro: Alert, Oriented x3 Psych: Mood and affect Normal Triage Information Reviewed: Yes Vital Signs Reviewed: Yes Diagnostics - Laboratory Result Diagrams: 18 14:23 18 14:23 Lab Statement: Any lab studies that have been ordered have been reviewed, and results considered in the medical decision making process. - EKG 14:09 Cardiac Rate: NL - at 83 bpm EKG Rhythm: Atrial Fibrillation Summary of EKG Findings: Afib. No STEMI. Re-Evaluation - Re-Evaluation First Eval Re-Evaluation Time: 14:58 Comment: Aware of pt's lactic acid of 7.6. Second Eval Re-Evaluation Time: 16:03 Comment: I discussed the admission plan with the pt. He would like to leave AMA. Complex Multi-Symp Course/Dx Assessment/Plan: Pt is a 63 y/o male presenting to the ED via EMS for an unresponsive episode today. EMS reports pt was found unresponsive under a park bench. Per EMS, blood glucose was 118 and pt was a little hypertensive and on afib rhythm. Pt remained unresponsive even after Narcan. EMS notes pt has hx of seizures. Pt denies any alcohol consumption but EMS is able to smell some in his breath. Pt does not know what happened or why he's here. Pt reports he has had lack of sleep and feel fatigued. Denies any injuries. Denies any pain, chest pain, abd pain, SOB, fever, neck pain. He admits to some marijuana use. Denies alcohol use. Admits to having missed some seizure medications doses. Test results show sodium of 121, chloride of 88, anion gap is 14, glucose is 139 , lactic acid is 7.6, valproic acid is 81, serum alcohol is less than 10. Pt was given Keppra IV. There is concern that his symptoms are related to hyponatremia. No clinical signs of alcohol withdrawal. I discussed the case with Dr. Smith, hospitalist, who accepted the pt for admission. I reviewed the admission plan with the pt but he would like to leave against medical advise. He is alert and oriented x3 and understands the risks of injury and seizures. I suspect hypovolemic hyponatremia therefore I will administer 2 L of normal saline prior to him leaving AMA. - Diagnoses Provider Diagnoses: Hyponatremia, Seizures - Physician Notifications Discussed Care Of Patient With: Rian Smith - hospitalist Time Discussed With Above Provider: 15:56 Instructed by Provider To: Admit As Inpatient Discharge - Sign-Out/Discharge Documenting (check all that apply): Patient Departure - Pt left AMA - Discharge Plan Condition: Stable Disposition: AGAINST MEDICAL ADVICE Referrals: Louie Lewis MD [Primary Care Provider] - - Attestation Statements Document Initiated by Scribe: Yes Documenting Scribe: Kusum Fernandez Provider For Whom Scribe is Documenting (Include Credential): Tony Bassett MD Scribe Attestation: Kusum Meade, scribed for Tony Bassett MD on 06/18/18 at 1629. Status of Scribe Document: Ready
[2018-06-18 14:32] LABS: ABS Basophils 0 10^3/ul (0-0.2); ABS Eosinophils 0 10^3/ul (0-0.6); ABS Lymphocytes 0.6 10^3/ul (1.0-4.8); ABS Monocytes 0.6 10^3/ul (0-0.8); ABS Neutrophils 4.6 10^3/ul (1.5-7.7); ABS Nucleated RBC 0 10^3/ul; Eosinophil % 0.6 %; Hematocrit 43 % (42-52); Hemoglobin 14.6 g/dl (14.0-18.0); Lymphocyte % 10.5 %; Mean Corpuscular HGB Conc 34 g/dl (31-36); Mean Corpuscular Hemoglobin 31 pg (27-31); Mean Corpuscular Volume 92 fL (80-94); Mean Platelet Volume 7.5 fL (7.4-10.4); Nucleated Red Blood Cells % 0.1; Platelet Count 210 10^3/ul (150-450); Red Cell Distribution Width 14 % (10.5-15); White Blood Count 5.9 10^3/ul (3.5-10.8)
[2018-06-18 14:39] LABS: INR 0.93 (0.77-1.02)
[2018-06-18 14:51] LABS: EGFR Non-African American 80.1 (>60)
[2018-06-18 15:10] LABS: Urine Appearance Cloudy; Urine Blood 1+ (Negative); Urine Color Yellow; Urine Ketones Trace (Negative); Urine Protein 1+(30 mg/dL) (Negative); Urine Red Blood Cell 2+(6-10/hpf) (Absent); Urine Specific Gravity 1.011 (1.010-1.030); Urine Urobilinogen Negative (Negative); Urine White Blood Cell Trace(0-5/hpf) (Absent)
[2018-06-18 17:46] VITALS: BP 141/86
== END | disposition left against medical advice (07) ==
LOC: ED 13:50
DX: E87.1 Hypo-osmolality and hyponatremia (principal); G40.909 Epilepsy, unspecified, not intractable, without status epilepticus; Z53.21 Procedure and treatment not carried out due to patient leaving prior to being seen by health care provider; I48.91 Unspecified atrial fibrillation; Z79.01 Long term (current) use of anticoagulants; F17.210 Nicotine dependence, cigarettes, uncomplicated; J44.9 Chronic obstructive pulmonary disease, unspecified; Z79.82 Long term (current) use of aspirin; G62.9 Polyneuropathy, unspecified; F32.9 Major depressive disorder, single episode, unspecified; F41.9 Anxiety disorder, unspecified; Z95.4 Presence of other heart-valve replacement
CPT/HCPCS: 36415; 80053; 80164; 80177; 80320; 81003; 81015; 83605; 83735; 85025; 85610; 87086; 93005; 96360; 99283; G0480

== ENCOUNTER 2018-08-15 13:24 | Observation (INO) | payer MEDICARE, MEDICAID ==
--- NOTE | 2018-08-15 13:48 | ED ---
Neurological HPI - HPI Summary HPI Summary: A 63 y/o male presents to [facility] with a chief complaint of weakness since . The patient claims that he can't walk and that he keeps falling down due to his balance. He claims that he has been dealing with this for "20 years" but that it did not worsen until 08/14/18. He says that "everything hurts" when he moves. He also has a cough. The patient says that he was told that if he quit smoking he would "get a procedure done", but has not stopped smoking. He denies EtOH use on 08/15/18. He claims that his functions have been lost from his legs "all the way up to the arms". He says that he has pain in his legs and says that they feel like they are about to "collapse". At triage the patient rated his pain as a 2/10 in severity. He says that sometimes he is incontinent due to not being able to move fast enough. Per triage note,"AMS, slow speech, "has to see Dr. Adams about vascular bypass", "a year ago" pt REALLY slow to speak, confused asked if hes in pain, staters "everywhere from falling, all the time"" . He has a Hx of Atrial Fibrillation and has a pacemaker. He says that he is always in Afib. He denies taking blood thinners. He takes Metoprolol and Cardizem. In the room his HR was 124 bpm. - History of Current Complaint Chief Complaint: EDAltMentalStatus Stated Complaint: CONFUSION Time Seen by Provider: 08/15/18 13:35 Hx Obtained From: Patient Onset/Duration: Sudden Onset, Started days ago, Still Present Timing: Constant Onset Severity: Mild Current Severity: Mild Pain Intensity: 2 Pain Scale Used: 0-10 Numeric Character: Weak, Other: - collapse Aggravating: Nothing Alleviating: Nothing Associated Signs and Symptoms: Positive: Pain. Negative: Fever - Additional Pertinent History Primary Care Physician: ERIN - Allergy/Home Medications Allergies/Adverse Reactions: Allergies Allergy/AdvReac Type Severity Reaction Status Date / Time No Known Allergies Allergy Verified 06/18/18 14:24 PMH/Surg Hx/FS Hx/Imm Hx Endocrine/Hematology History: Reports: Hx Anticoagulant Therapy Denies: Hx Diabetes, Hx Thyroid Disease Cardiovascular History: Reports: Hx Hypertension, Hx Pacemaker/ICD - [employer] -GUIANDANT - NOT MR SAFE/CONDITIONAL, Hx Peripheral Vascular Disease , Hx Valvular Heart Disease - Recent valve replacement surgery, Other Cardiovascular Problems/Disorders - Hx Atrial Fibrillation and was treatment with Warfarin which has been d/c'd Respiratory History: Reports: Hx Chronic Bronchitis, Hx Chronic Obstructive Pulmonary Disease (COPD), Other Respiratory Problems/Disorders - poss aspiration Denies: Hx Asthma History: Reports: Other Problems/Disorders - History of SIADH Denies: Hx Renal Disease Musculoskeletal History: Reports: Other Musculoskeletal History - peripheral neuropathy Denies: Hx Arthritis, Hx Osteoporosis Sensory History: Reports: Hx Cataracts, Hx Contacts or Glasses Denies: Hx Hearing Aid Opthamlomology History: Reports: Hx Cataracts, Hx Contacts or Glasses Neurological History: Reports: Hx Seizures, Other Neuro Impairments/Disorders - PERIPHERAL NEUROPATHY Denies: Hx Dementia Psychiatric History: Reports: Hx Anxiety, Hx Depression, Hx Panic Disorder, Hx Post Traumatic Stress Disorder, Hx Inpatient Treatment, Hx Community Mental Health Tx, Hx Bipolar Disorder, Hx Suicide Attempt, Hx of Violent Episodes Against Others, Hx Substance Abuse, Other Psychiatric Issues/Disorders - has had ECT treatment Denies: Hx Eating Disorder, Hx Schizophrenia - Surgical History Surgery Procedure, Year, and Place: cataracts removed. Hx Hernia Repair. AORTIC VALVE REPLACEMENT. PACEMAKER - Immunization History Date of Tetanus Vaccine: PT STATES UNSURE Date of Influenza Vaccine: NONE Infectious Disease History: No Infectious Disease History: Reports: Hx Tuberculosis - hx of inactive TB Denies: Hx Clostridium Difficile, Hx Hepatitis, Hx Human Immunodeficiency Virus (HIV), Hx of Known/Suspected MRSA, Hx Shingles, Hx Known/Suspected VRE, Hx Known/Suspected VRSA, History Other Infectious Disease, Traveled Outside the [place] in Last 30 Days - Family History Known Family History: Positive: Other - Mother -- depression, Father -- EtOH abuse - Social History Alcohol Use: Daily Alcohol Amount: REPORTS BEER WITH DINNER TONIGHT Hx Substance Use: Yes Substance Use Type: Reports: Marijuana Substance Use Comment - Amount & Last Used: last weekend Hx Tobacco Use: Yes Smoking Status (MU): Heavy Every Day Tobacco Smoker Type: Cigarettes Amount Used/How Often: 1/2 PPD Length of Time of Smoking/Using Tobacco: 40 YRS Have You Smoked in the Last Year: Yes Review of Systems Negative: Fever Positive: Cough Positive: incontinence Positive: Arthralgia, Myalgia Positive: Weakness All Other Systems Reviewed And Are Negative: Yes Physical Exam - Summary Physical Exam Summary: Appearance: The patient is well-nourished in no acute distress and in no acute pain. Skin: The skin is warm and dry and skin color reflects adequate perfusion. HEENT: The head is normocephalic and atraumatic. The pupils are equal and reactive. The conjunctivae are clear and without drainage. No nystagmus. Nares are patent and without drainage. Mouth reveals moist mucous membranes and the throat is without erythema and exudate. The external ears are intact. The ear canals are patent and without drainage. The tympanic membranes are intact. Neck: The neck is supple with full range of motion and non-tender. There are no carotid bruits. There is no neck vein distension. Respiratory: Chest is non-tender. Lungs are clear to auscultation and breath sounds are symmetrical and equal. Cardiovascular: Heart is tachycardic and irregular rhythm. Capillary refill 5 seconds in both lower extremities and feet. Very faint dorsalis pedis pulse. There is no murmur or rub auscultated. There is no peripheral edema and pulses are symmetrical and equal. Abdomen: The abdomen is soft and non-tender. There are normal bowel sounds heard in all four quadrants and there is no organomegaly palpated. Musculoskeletal: There is no back tenderness noted. Extremities are non-tender with full range of motion. There is good capillary refill. There is no peripheral edema or calf tenderness elicited. Neurological: Patient is alert and oriented to person, place and time. The patient has symmetrical motor strength in all four extremities. Cranial nerves are grossly intact. Deep tendon reflexes are symmetrical and equal in all four extremities. Psychiatric: The patient has an appropriate affect and does not exhibit any anxiety or depression. Triage Information Reviewed: Yes Vital Signs On Initial Exam: Initial Vitals Temp Pulse Resp BP Pulse Ox 98 F 128 16 122/91 96 08/15/18 13:29 08/15/18 13:29 08/15/18 13:29 08/15/18 13:29 08/15/18 13:29 Vital Signs Reviewed: Yes - Romaine Coma Scale Best Eye Response: 4 - Spontaneous Best Motor Response: 6 - Obeys Commands Best Verbal Response: 5 - Oriented Coma Scale Total: 15 Diagnostics - Vital Signs Vital Signs Temp Pulse Resp BP Pulse Ox 08/15/18 13:29 98 F 128 16 122/91 96 - Laboratory Result Diagrams: 08/15/18 14:19 08/15/18 14:19 Lab Statement: Any lab studies that have been ordered have been reviewed, and results considered in the medical decision making process. - Radiology CXR Radiology Interpretation Completed By: Radiologist Summary of Radiographic Findings: CARDIOMEGALY WITH INTERSTITIAL EDEMA. POSTOPERATIVE CHANGES ARE NOTED. ED physician has reviewed this imaging report. - CT Brain CT Interpretation Completed By: Radiologist Summary of CT Findings: Normal CT of the brain. ED physician has reviewed this imaging report. - EKG 14:11 Cardiac Rate: Other Rate - Atrial Fibrillation at 113 bpm EKG Rhythm: Atrial Fibrillation Summary of EKG Findings: Atrial fibrillation at 113bpm with RVR. Course/Dx - Course Course Of Treatment: Mr. Cortez is not very cooperative for easy to evaluate on arrival. He does seem very unsteady on his feet and I don't believe that he can walk safely on his own. I couldn't find any focal neurological finding but again he was not cooperative. He was tachycardic with an underlying history of atrial fibrillation which he is always on and not on anticoagulants. He was afebrile and had no leukocytosis. His labs are unremarkable except for a mildly elevated lactic acid at 4. Although he meets septic criteria with tachycardia and lactic acid I do not feel that this is sepsis. He has underlying atrial fibrillation and has not been taking his medications which include metoprolol. And I think that is because he has hepatic encephalopathy. An ammonia level was 129. He has not had one obtained in 5 years when it was normal. The hospitalist service was asked to evaluate him he did get IV fluids but I'm holding antibiotics at this point. - Diagnoses Provider Diagnoses: Hepatic encephalopathy - Physician Notifications Discussed Care Of Patient With: Ab Aldridge Time Discussed With Above Provider: 16:40 Instructed by Provider To: Admit As Inpatient Discharge - Sign-Out/Discharge Documenting (check all that apply): Patient Departure - admit Patient Received Moderate/Deep Sedation with Procedure: No - Discharge Plan Condition: Fair Disposition: ADMITTED TO [facility] Referrals: Louie Lewis MD [Primary Care Provider] - - Billing Disposition and Condition Condition: FAIR Disposition: Admitted to [facility] - Attestation Statements Document Initiated by Scribe: Yes Documenting Scribe: Sid Whalen Provider For Whom Scribe is Documenting (Include Credential): Jorge Nam MD Scribe Attestation: I, Sid Whalen, scribed for Jorge Nam MD on 08/15/18 at 1731. Scribe Documentation Reviewed: Yes Provider Attestation: The documentation as recorded by the urbanoibe, Sid Whalen accurately reflects the service I personally performed and the decisions made by me, Jorge Nam MD Status of Scribe Document: Viewed
[2018-08-15] MEDS ORDERED: NS 0.9% 1000 ML** 1,000 ML IV.FLUID IV ONE (14:44)
[2018-08-15 14:47] LABS: ABS Basophils 0 10^3/ul (0-0.2); ABS Eosinophils 0 10^3/ul (0-0.6); ABS Monocytes 0.5 10^3/ul (0-0.8); ABS Nucleated RBC 0 10^3/ul; Eosinophil % 0.6 %; Hematocrit 38 % (42-52); Hemoglobin 12.9 g/dl (14.0-18.0); Lymphocyte % 21.5 %; Mean Corpuscular HGB Conc 34 g/dl (31-36); Mean Corpuscular Hemoglobin 31 pg (27-31); Mean Corpuscular Volume 91 fL (80-94); Mean Platelet Volume 8.3 fL (7.4-10.4); Nucleated Red Blood Cells % 0.3; Platelet Count 126 10^3/ul (150-450); Red Blood Count 4.18 10^6/ul (4.00-5.40); Red Cell Distribution Width 17 % (10.5-15); White Blood Count 4.6 10^3/ul (3.5-10.8)
[2018-08-15 15:00] LABS: Troponin I 0.01 ng/mL (<0.04)
[2018-08-15 15:01] LABS: ALT 8 U/L (7-52); AST 15 U/L (13-39); Albumin 3.7 g/dL (3.2-5.2); Albumin/Globulin Ratio 1.2 (1-3); Alkaline Phosphatase 63 U/L (34-104); Anion Gap 8 mmol/L (2-11); BUN/Creatinine Ratio 11.5 (8-20); Blood Urea Nitrogen 12 mg/dL (6-24); C Reactive Protein 44.07 mg/L (<8.01); CO2 Carbon Dioxide 26 mmol/L (22-32); Chloride 94 mmol/L (101-111); Creatine Kinase 74 U/L (10-223); EGFR African American 87.3 (>60); EGFR Non-African American 72.1 (>60); Glucose 151 mg/dL (70-100); Magnesium 1.9 mg/dL (1.9-2.7); Potassium 3.5 mmol/L (3.5-5.0); Sodium 128 mmol/L (135-145); Total Protein 6.7 g/dL (6.4-8.9)
[2018-08-15 15:15] LABS: INR 1.14 (0.77-1.02)
[2018-08-15 16:17] LABS: TSH (Thyroid Stimulating Horm) 6.24 mcIU/mL (0.34-5.60)
[2018-08-15 16:19] LABS: Alcohol < 10 mg/dL (<10); Digoxin < 0.3 ng/ml (0.8-2.0)
[2018-08-15] MEDS ORDERED: Acetaminophen TAB* 325 MG PO PRN (16:47)
[2018-08-15] MEDS ORDERED: Ondansetron INJ* 2 MG/ML VIAL IV PRN (16:47)
[2018-08-15] MEDS ORDERED: NS 0.9% 1000 ML** 1,000 ML IV ONE (16:52)
[2018-08-15] MEDS ORDERED: Thiamine IV* 100 MG/ML 2 ML VIAL IM ONE (16:54)
[2018-08-15] MEDS ORDERED: Thiamine IV* 100 MG, Folic Acid IV* 1 MG, Multiple Vitamin IV ADULT* 10 ML in NS 0.9% 1... IV ONE (16:57)
[2018-08-15] MEDS ORDERED: NS 0.9% 500 ML* 500 ML IV ONE (16:59)
[2018-08-15] MEDS ORDERED: LORazepam TAB(*) 1 MG PO SCH (17:00)
[2018-08-15] MEDS ORDERED: Digoxin IV* 0.5 MG/2 ML AMP (0.25 MG/ML) IV SLOW PU ONE (18:09)
[2018-08-15 19:11] LABS: Urine Appearance Clear; Urine Bilirubin Negative (Negative); Urine Blood Negative (Negative); Urine Color Yellow; Urine Glucose Negative (Negative); Urine Ketones Negative (Negative); Urine Nitrite Negative (Negative); Urine Protein Negative (Negative); Urine Specific Gravity 1.009 (1.010-1.030); Urine Urobilinogen Positive (Negative)
[2018-08-15] MEDS ORDERED: Metoprolol Succinate XL TAB* 25 MG PO SCH (21:00)
--- NOTE | 2018-08-15 21:46 | HP ---
ADMISSION HISTORY AND PHYSICAL: DATE OF ADMISSION: 08/15/18 PRIMARY CARE PROVIDER: Unknown. ATTENDING FOR THIS ADMISSION: Ab Aldridge MD * (DICTATED BY BLANCA MEDLEY NP) CHIEF COMPLAINT: Falls and confusion. HISTORY OF PRESENT ILLNESS: Mr. Cortez is a 63-year-old male patient with a couple of recent admissions for breakthrough seizures. The patient is a known chronic alcoholic and states that he keeps losing his balance. He is having periods of confusion and having falls. The patient states his drinking history is for over 20 years and he has been having the same issues. He states that everything hurts. He has a cough and again is confused. Speech has been slow and difficult to follow. Most of the history, because the patient is quite encephalopathic right now, most of the information and gathering is taken from his recent admission on 07/31/18. In short, the emergency department obtained laboratory values. He is hyponatremic, which seems to be his baseline; however , his ammonia level is now 129, which is an acute change for him, his last ammonia level several years ago was 44. For these reasons, we were asked to evaluate the patient for admission for acute hepatic encephalopathy. PAST MEDICAL HISTORY: Significant for: 1. Bipolar disease. 2. Depression. 3. Seizure disorder. 4. Alcohol abuse. 5. Hypertension. 6. SIADH. 7. Neuropathy. 8. Peripheral vascular disease. 9. COPD. 10. Mitral regurgitation, status post mitral valve replacement with a bioprosthetic valve. 11. History of chronic atrial fibrillation. PAST SURGICAL HISTORY: Insertion of pacemaker and history of bioprosthetic mitral valve replacement. MEDICATIONS: Medications at home are: 1. Metoprolol tartrate 25 mg daily. 2. Lipitor 40 mg daily. 3. Diltiazem CD 240 mg daily. 4. Depakote extended release 1500 mg daily. 5. Digoxin 0.25 mg daily. 6. Breo Ellipta 1 puff daily. 7. Hydroxyzine 50 mg q.6 hours as needed. 8. Advair 2 puffs b.i.d. 9. Pletal 100 mg b.i.d. 10. Aspirin 81 mg daily. 11. Zoloft 100 mg daily. 12. Gabapentin 600 mg b.i.d. 13. Keppra 500 mg b.i.d. ALLERGIES: The patient has no known drug allergies. SOCIAL HISTORY: Again, difficult to obtain secondary to the patient's condition. Per his last admission, patient admitted to drinking 6 to 12 beers per day. The patient is and lives alone. His mother is his surrogate , her name is Janel Cortez. The patient currently resides in [place], [place]. I believe he is unemployed. FAMILY HISTORY: His family history is unable to obtain. REVIEW OF SYSTEMS: Unable to obtain secondary to lethargic condition. PHYSICAL EXAMINATION GENERAL: In general, the patient is lethargic, but arousable to name, sometimes answers questions appropriately, sometime does not. VITAL SIGNS: Blood pressure 117/88, heart rate variable at 97 to 114, respiratory rate 18, O2 saturation 99% on room air with a temperature of 98.9. HEENT: The patient is atraumatic, normocephalic. He has PERRLA with nonicteric sclerae. Oral mucosa is dry. NECK: Supple, nontender. No JVD noted. No carotid bruit auscultated. LUNGS: Clear bilaterally at the apices to auscultation, diminished at the bases. Chest, he does have some bony prominence in the center of his chest likely secondary to sternotomy changes and he has some bruising over the area likely consistent with the patient's history of frequent falls. CARDIOVASCULAR: S1, S2 are present. Rate and rhythm are irregular. Mildly tachycardic, currently AFib on telemetry. ABDOMEN: Soft, nontender, nondistended. Positive bowel sounds in all 4 quadrants. : Deferred. MUSCULOSKELETAL: There is no clubbing, no cyanosis. He does have some areas of bruising in various healing stages on his extremities. He has +2 distal pulses. The patient is not able currently to ambulate. NEUROLOGIC: He is very lethargic. PSYCHIATRIC: He appears calm, but has difficulty following commands and staying awake. IMAGING: CT of the brain shows no acute intracranial abnormalities. Chest x- ray shows cardiomegaly with interstitial edema and some postoperative changes, in particular the patient status post thoracotomy, also pacemaker leads in place. Interstitial edema is noted and unchanged from 04/17/18. LABORATORY DATA: WBCs 4.6, RBCs 4.18, hemoglobin 12.9, hematocrit 38, platelets 126. Sodium 128, potassium 3.5, chloride 94, CO2 of 26, BUN 12, creatinine 1.04, GFR 72.1, glucose 151, lactic acid 3.2, calcium 9.0, magnesium 1.9. Bilirubin 1.20, AST 15, ALT 8, alk phos 63, ammonia 129. Troponin is negative at 0.01. TSH is elevated at 6.24, which appears to be improving. His last TSH in June was 10.83. IMPRESSION: This is a 63-year-old male patient with a history of alcohol abuse , mitral valve disease, seizures, and frequent falls that presents to the emergency department with complaint of inability to ambulate and appeared confused. DIAGNOSES: 1. Hepatic encephalopathy. The patient's ammonia level is vastly elevated at 129. We will start him on lactulose 30 mg p.o. 4 times a day. Monitor ammonia level in the morning. This appears to be consistent with his chronic alcohol abuse, which leads us to new diagnosis. 2. Chronic alcohol abuse. The patient will be placed on [place] protocol with Ativan. We will also place consult for social work. 3. History of atrial fibrillation. The patient's digoxin will be continued as well as his metoprolol. His heart rate is a little bit elevated right now. He is in chronic AFib. We will give him 1 dose of IV digoxin now. His dig level was low at 0.3 and see if we can get the heart rate under control. The patient will be continued on his metoprolol, diltiazem, digoxin, and aspirin daily. 4. History of behavioral disorder, depression, anxiety, bipolar. The patient is taking hydroxyzine for anxiety. This will be continued. The patient will continue hydroxyzine and Zoloft 100 mg daily. 5. For his history of seizure disorder, he will be continued on his Depakote and his Keppra and his gabapentin. 6. For his history of COPD, he is not currently in exacerbation. We will continue his inhalers from home. 7. DVT prophylaxis. The patient will be placed on heparin subcu. His INR is mildly elevated right now. We will monitor his platelets and his INR. Again, platelets are slightly low and the INR is slightly elevated. We may have to stop his heparin tomorrow and switch to SCDs. However, the patient is essentially bedbound right now, so he would be definitely at higher risk for DVT and/or PE. 8. Diet. He is to have a heart healthy diet. 9. Fluids, electrolytes, and nutrition. He will get 1 banana bag right now. He has received fluid bolus. We will recheck his lactic acid. He does not appear to be septic. I think his tachycardia and his lactic acidosis are secondary to his encephalopathy; however, we will continue to monitor. I do not believe the patient is meeting sepsis criteria at this point. Disposition. The patient will be admitted to telemetry. TIME SPENT: Approximately 65 minutes spent on admission discussing plan of care with Dr. Ab Aldridge, the attending on this admission. BLANCA MEDLEY NP [id number]/[facility] #: [id number] YARIEL
[2018-08-15] MEDS: levETIRAcetam TAB* 500 MG PO SCH (22:19)
[2018-08-15] MEDS: Cilostazol TAB* 100 MG PO SCH (22:20)
[2018-08-16 05:34] LABS: ABS Basophils 0 10^3/ul (0-0.2); ABS Eosinophils 0.1 10^3/ul (0-0.6); ABS Monocytes 0.5 10^3/ul (0-0.8); ABS Neutrophils 2.4 10^3/ul (1.5-7.7); ABS Nucleated RBC 0 10^3/ul; Eosinophil % 2.2 %; Hematocrit 38 % (42-52); Hemoglobin 12.8 g/dl (14.0-18.0); Lymphocyte % 23.8 %; Mean Corpuscular HGB Conc 33 g/dl (31-36); Mean Corpuscular Hemoglobin 31 pg (27-31); Mean Corpuscular Volume 92 fL (80-94); Mean Platelet Volume 8.4 fL (7.4-10.4); Nucleated Red Blood Cells % 0; Platelet Count 123 10^3/ul (150-450); Red Blood Count 4.17 10^6/ul (4.00-5.40); Red Cell Distribution Width 17 % (10.5-15)
[2018-08-16 05:39] LABS: INR 1.02 (0.77-1.02)
[2018-08-16 05:52] LABS: Albumin 3.4 g/dL (3.2-5.2); Albumin/Globulin Ratio 1.1 (1-3); Calcium 8.8 mg/dL (8.6-10.3); EGFR African American 100.5 (>60); EGFR Non-African American 83.1 (>60); Potassium 4.1 mmol/L (3.5-5.0); Total Bilirubin 0.7 mg/dL (0.2-1.0); Total Protein 6.4 g/dL (6.4-8.9)
[2018-08-16] MEDS ORDERED: Levothyroxine TAB* 25 MCG TAB PO SCH (06:00)
--- NOTE | 2018-08-16 07:59 | PN ---
Subjective Date of Service: 08/16/18 Interval History: Feels improved No complaints Mild chronic cough, no SOB/CP, N/V Objective Active Medications: Acetaminophen (Tylenol Tab*) 650 mg PO Q4H PRN PRN Reason: FEVER/PAIN Aspirin (Aspirin Ec Tab*) 81 mg PO DAILY [facility] Atorvastatin Calcium (Lipitor*) 20 mg PO DAILY [facility] Cilostazol (Pletal Tab*) 100 mg PO BID [facility] Last Admin: 08/15/18 22:20 Dose: 100 mg Device (Tiotropium Inhaler Device*) 1 each INH 0900 ONE Stop: 08/16/18 09:01 Digoxin (Lanoxin Tab*) 0.25 mg PO DAILY [facility] Diltiazem HCl (Cardizem Cd Cap*) 240 mg PO DAILY [facility] Divalproex Sodium (Depakote Er Tab(*)) 1,500 mg PO QAM [facility] Fluticasone/Vilanterol (Breo Ellipta Mdi 100/25(Nf)) 1 puff INH DAILY [facility] Folic Acid (Folvite Tab*) 1 mg PO DAILY [facility] Lactulose (Lactulose*) 30 ml PO QID [facility] Last Admin: 08/15/18 22:20 Dose: 30 ml Levetiracetam (Keppra Tab*) 750 mg PO TID [facility] Last Admin: 08/15/18 22:19 Dose: 750 mg Levothyroxine Sodium (Synthroid Tab*) 25 mcg PO 0600 [facility] Last Admin: 08/16/18 05:31 Dose: 25 mcg Lorazepam (Ativan Tab(*)) 0 - 6 mg PO .PER [facility] PROTOCOL [facility]; Protocol Metoprolol Succinate (Toprol Xl Tab*) 25 mg PO BEDTIME [facility] Last Admin: 08/15/18 22:20 Dose: 25 mg Multivitamins/Minerals (Theragran/Minerals Tab*) 1 tab PO DAILY [facility] Ondansetron HCl (Zofran Inj*) 4 mg IV Q4H PRN PRN Reason: NAUSEA/VOMITING Sertraline HCl (Zoloft*) 100 mg PO DAILY [facility] Thiamine HCl (Vitamin B-1 Tab*) 100 mg PO DAILY [facility] Tiotropium [place] (Spiriva Cap.Inh*) 1 cap INH DAILY [facility] Umeclidinium [place] (Incruse Ellipta Mdi (Nf)) 1 inh INH DAILY [facility] Vital Signs - 8 hr 08/16/18 08/16/18 08/16/18 00:00 02:08 04:09 Temperature 97.2 F 97.6 F 97.4 F Pulse Rate 97 88 112 Respiratory 18 20 16 Rate Blood Pressure 105/73 118/81 129/86 (mmHg) O2 Sat by Pulse 98 96 96 Oximetry 08/16/18 06:54 Temperature 98.3 F Pulse Rate 112 Respiratory 16 Rate Blood Pressure 115/76 (mmHg) O2 Sat by Pulse 96 Oximetry Oxygen Devices in Use Now: None Appearance: sitting up NAD Eyes: No Scleral Icterus, PERRLA Ears/Nose/Mouth/Throat: Clear Oropharnyx, Mucous Membranes Moist Neck: NL Appearance and Movements; NL JVP, Trachea Midline Respiratory: Symmetrical Chest Expansion and Respiratory Effort, Clear to Auscultation Cardiovascular: - - IRIR Abdominal: NL Sounds; No Tenderness; No Distention, No Hepatosplenomegaly Lymphatic: No Cervical Adenopathy Extremities: No Edema Skin: No Rash or Ulcers Neurological: Alert and Oriented x 3 Result Diagrams: 08/16/18 05:25 08/16/18 05:25 Assess/Plan/Problems-Billing Assessment: 63 yo M h/op seizure d/o, afib, etoh abuse, peripheral vascular dx pw lethargy and falls - Patient Problems (1) Lethargy Comment: no e/o seizure do improved with lactulose and time -> maybe hepatic encephalopathy check valproic lvl (2) Falls Comment: no clear etiology but combination chronic alcoholism, vascular dz, deconditioning and polypharmacy likely contributing. Pt does not routinely take CV meds and afib RVR or other arrythmia may have contributed Control rate Ambulate PT eval counseled etog and tobacco cessation (3) Afib Comment: diltiazem and digoxin does not take routinely no AC 2/2 frequent falls (4) Alcohol abuse Comment: [place] has not required ativan - discontinued reports 6 pack beer/day (5) Seizure disorder Comment: Cont Valproic acid and Keppra check valproic lvl (6) DVT prophylaxis Comment: HSQ
[2018-08-16] MEDS ORDERED: NS 0.9% 500 ML* 500 ML IV SCH (08:00)
[2018-08-16] MEDS: Cilostazol TAB* 100 MG PO SCH (08:50)
[2018-08-16] MEDS: levETIRAcetam TAB* 500 MG PO SCH ×2 (08:51→14:21)
[2018-08-16] MEDS ORDERED: NFT: Fluticasone/Vilanterol MDI(NF) 100/25 MDI INH SCH (09:00)
[2018-08-16] MEDS ORDERED: NFT: Umeclidinium 62.5 MDI(NF) MDI INH SCH (09:00)
[2018-08-16] MEDS ORDERED: Multivitamins/Minerals TAB PO SCH (09:00)
[2018-08-16] MEDS ORDERED: Thiamine TAB* 100 MG TAB PO SCH (09:00)
[2018-08-16] MEDS ORDERED: Aspirin EC TAB* 81 MG TAB.EC PO SCH (09:00)
[2018-08-16] MEDS ORDERED: Digoxin TAB* 0.25 MG PO SCH (09:00)
[2018-08-16] MEDS ORDERED: Tiotropium CAP.INH* CAP.INH/18 MCG (USE ORDER SET !) INH SCH (09:00)
[2018-08-16] MEDS ORDERED: Spiriva Inhaler DEVICE* 1 EACH DEVICE INH ONE (09:00)
[2018-08-16] MEDS ORDERED: Atorvastatin* 20 MG TAB PO SCH (09:00)
[2018-08-16] MEDS ORDERED: Sertraline* 100 MG TAB PO SCH (09:00)
[2018-08-16] MEDS ORDERED: Divalproex ER TAB(*) 500 MG PO SCH (09:00)
[2018-08-16] MEDS ORDERED: Diltiazem CD CAP* 240 MG PO SCH (09:00)
[2018-08-16] MEDS ORDERED: Folic Acid TAB* 1 MG PO SCH (09:00)
[2018-08-16] MEDS ORDERED: Heparin VIAL(*) 5000 UNITS/ML VIAL (FIVE THOUSAND) SUBCUT SCH (14:00)
[2018-08-16 14:38] VITALS: BP 113/63
--- NOTE | 2018-08-16 22:14 | DS ---
CC: Dr. Lewis * DISCHARGE SUMMARY: DATE OF ADMISSION: 08/15/18 DATE OF DISCHARGE: 08/16/18 PRIMARY CARE PROVIDER: Dr. Lewis. PRIMARY DIAGNOSES: 1. Falls 2. Hepatic encephalopathy. SECONDARY DIAGNOSES: 1. Chronic alcoholism. 2. Bipolar disorder. 3. Seizure disorder. 4. Current alcohol abuse and dependence. 5. Hypertension. 6. History of syndrome of inappropriate secretion of antidiuretic hormone. 7. Chronic obstructive pulmonary disease. 8. Peripheral vascular disease. MEDICATIONS ON DISCHARGE: Unchanged from admission include: 1. Keppra 750 mg 3 times a day. 2. Depakote ER 1500 mg in the morning. 3. Incruse Ellipta 1 puff daily. 4. Spiriva 2 caps inhaled daily. 5. Zoloft 100 mg daily. 6. Metoprolol succinate 25 mg at bedtime. 7. Synthroid 25 mcg daily. 8. Breo Ellipta 100/25 one puff daily. 9. Diltiazem 240 mg daily. 10. Digoxin 0.25 mg daily. 11. Cilostazol 100 mg twice daily. 12. Atorvastatin 20 mg daily. 13. Aspirin 81 mg daily. PERTINENT LABORATORY DATA: Ammonia on presentation 129. Lactic acid 3.2, decreased to 0.9. Sodium on discharge 130. TSH is 6.24. Platelets 123 on discharge. Valproic acid level 68. Serum albumin less than 10 on presentation. HISTORY OF PRESENT ILLNESS AND HOSPITAL COURSE: A 63-year-old man with past medical history as outlined in history of present illness on day of admission including chronic alcoholism as well as seizure disorder, presented to the hospital with multiple falls, found to be lethargic in the emergency room. He was admitted to the hospital, placed on the WAM, although did not utilize any Ativan and did not withdraw. He was started on lactulose and his mental status improved. He was back to baseline ambulating around the unit on the day of discharge. No changes to his home medications were made. Smoking cessation as well as alcohol cessation was counseled. The patient declined hospice social worker to assist with alcohol cessation. He was seen by Physical Therapy, who recommended home VNS and/or PT. Care management is arranging services prior to discharge. There were no complications during the patient's stay. FOLLOWUP INSTRUCTIONS: At followup, please: 1. Please evaluate for continued tobacco and/or alcohol cessation. 2. No other specific labs or vitals that need followup. 3. Please ensure continued adherence to home medications as the patient is intermittently nonadherent. Reasons to return to the hospital including but not limited to recurrent or worsening symptoms including chest pain, shortness of breath, nausea, vomiting, lightheadedness, loss of consciousness or near loss of consciousness, continued falls, asymmetric weakness or paresthesias, fevers, chills, or night sweats, inability to obtain or tolerate medications were discussed with the patient at greater length. TIME SPENT: Greater than 60 minutes was spent on discharge of this patient, greater than half was spent [id number] with the patient. [id number]/[facility] #: [id number] YARIEL
== END 2018-08-16 16:00 | disposition home or self-care (01) ==
LOC: ED 13:24 → MEDTELE 16:47 → INTOOBSV 16:47
PROVIDERS: ADMIT Internal Medicine; ATTEND Internal Medicine
DX: K72.90 Hepatic failure, unspecified without coma (principal); Z91.81 History of falling; F10.20 Alcohol dependence, uncomplicated; F31.9 Bipolar disorder, unspecified; G40.909 Epilepsy, unspecified, not intractable, without status epilepticus; I10 Essential (primary) hypertension; J44.9 Chronic obstructive pulmonary disease, unspecified; I73.9 Peripheral vascular disease, unspecified; Z79.82 Long term (current) use of aspirin; R41.0 Disorientation, unspecified; E22.2 Syndrome of inappropriate secretion of antidiuretic hormone; G62.9 Polyneuropathy, unspecified; I34.0 Nonrheumatic mitral (valve) insufficiency; I48.2 Chronic atrial fibrillation; Z95.0 Presence of cardiac pacemaker; Z95.4 Presence of other heart-valve replacement; Z79.01 Long term (current) use of anticoagulants
CPT/HCPCS: 36415; 70450; 71045; 80053; 80162; 80164; 80320; 81003; 82140; 82550; 83605; 83735; 84443; 84484; 85025; 85610; 86140; 93005; 94640; 96372; 96374; 96375; 99284; 99406; A9270-GY; G0378; G0480; G8987-GO-CI; G8988-GO-CI; G8989-GO-CI; J1160; J1644; J3411

== ENCOUNTER → 2018-09-16 18:31 | Emergency (ER) | payer MEDICARE, MEDICAID ==
[2018-09-16 18:57] VITALS: BP 91/65
--- OUTSIDE RECORDS SUMMARY | 2018-09-16 19:18 | XMS REPORT | Continuity of Care Document ---
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 Active Onset: 03/29/2017 Diverticulosis of colon without Kellee Bangura M.D. Active diverticulitis Onset: 06/11/2017 Idiopathic peripheral neuropathy Kellee Bangura M.D. 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 medical Bipolar 1993 Tobacco Use Start: Unknown Heavy tobacco smoker (more than 10 cigarettes/day) ETOH Use Consumes 1 six pack of beer per day Tobacco Use Start: Unknown Patient is a current 1- 2 ppd x 40 years smoker, smokes every day has quit for a few mos at most Recreational Drug Use Marijuana Recreational Drug Use Former Drug User benzo heroin Smoking Status Reviewed: 07/04/17 Patient is a current 1- 2 ppd x 40 years smoker, smokes every day has quit for a few mos at most Allergies, Adverse Reactions, Alerts Description No Known Drug Allergies Medications Medication Date Status Form Strength Qnty SIG Indications Ordering Provider Tamsulosin HCL 08/22/ Active Capsules 0.4mg 30cap 1 by mouth E87.1 Autumn T. 2018 s every day Mirian humphrey MD Lorazepam 11/02/ Active Tablets 2mg 60tab take one by F41.1 Autumn T. 2017 s mouth two Mirian times a day MD milagro Hydrocodone-Armando 08/22/ Active Tablets 5-325mg 30tab 1 by mouth Autumn TBriseida taminophen 2017 s every 8 Mirian hours as MD milagro needed Zoloft 06/28/ Active Tablets 100mg 60tab 2 tab by Autumn T. 2016 s mouth every Mirian day MD milagro Diclofenac 06/11/ Active Gel 1% 100gm apply 2-3 cm Kellee Sodium 2017 strip to [place], neck three M.D. times a day as needed Aspir-81 06/11/ Active Tablets DR 81mg 90tab 1 by mouth Kellee 2016 s every day Radames Bangura Cilostazol 05/07/ Active Tablets 100mg 60tab 1 tab twice I73.9 Autumn T. 2016 s day Mirian humphrey MD Hydroxyzine 10/30/ Active Capsules 50mg 120ca 1 tab q4-6 F31.9 Autumn Schafer Pamavis 2016 ps hours as Mirian needed MD milagro Breo Ellipta 03/11/ Active Aerosol 100-25mcg 1unit 1 puff every Avtar 2014 Radames Ring Spiriva 03/11/ Active Aerosol 2.5mcg/Ac 1unit 2 puff every Avtar Respimat 2014 Radames Ring Digoxin / Active Tablets 250mcg 1 tab po qd Unknown 0000 Divalproex / Active Tablets ER 500mg 90tab 3 by mouth Autumn Keating Sodium ER 0000 24HR s every , .DBriseida Diltiazem CD / Active Caps ER 120mg [...] needed Mirian 10/12/ for insomnia MD milagro 2017 Levetiracetam 07/30/ Hx Tablets 500mg 60tab 1 po bid. Autumn Schafer 2018 - s Mirian 10/12/ MD milagro 2018 Gabapentin 07/23/ Hx Tablets 600mg 60tab 1 tab by Kellee 2018 - s mouth twice [place], 01/16/ a day M.D. 2018 Hydrocodone-Armando 06/11/ Hx Tablets 10-325mg 30tab take 1q 4-5 Kellee jett 2016 - s hours as [place], 06/11/ needed as M.D. 2017 needed for pain Oxycodone HCL 06/11/ Hx Tablets 5mg 120ta 1 tab by I73.9 Kellee 2016 - bs mouth q6 [place], 07/24/ hours as M.D. 2017 needed Hydrocodone-Armando 1030/ Hx Tablets 10-325mg 12tab 1 tab by I73.9 Kellee taminophen 2017 - s mouth every [place], 06/07/ 8 hours as M.D. 2017 needed Hydrocodone-Armando 04/25/ Hx Tablets 5-325mg 30tab 1 by mouth Kellee taminophen 2017 - s every 8 [place], 05/07/ hours as M.D. 2017 needed Hydrocodone 10/13/ Hx Tablets 2.5-325mg 20tab take one by Kellee Bitartrate/Acet 2017 - s mouth up to [place], aminophen 04/25/ 4 times per M.D. 2017 day Gralise 12/01/ Hx Tablets 600mg 60tab 1 tab by Kellee 2017 - s mouth twice [place], 07/23/ a day M.D. 2018 Quetiapine 03/07/ Hx Tablets 100mg 30tab 1 tab at F31.9 Kellee Fumarate 2015 - s bedtime [place], 04/18/ M.D. 2015 Advair HFA 03/07/ Hx Aerosol 230-21mcg 1unit take 2 J44.9 Kellee 2016 - /Act s inhalations [place], 11/02/ twice daily M.D. 2018 as directed Zolpidem 02/21/ Hx Tablets 10mg 15tab 1 tab by Kellee Tartrate 2015 - s mouth every [place], 04/18/ night as M.D. 2016 needed Ambien 02/06/ Hx Tablets 5mg 15tab 1 tab by Kellee 2016 - s mouth every [place], 02/21/ night as M.D. 2016 needed Ciclopirox 12/20/ Hx Cream 0.77% 30gm apply to Eun Olamine 2016 - affected [facility], 01/19/ area on Afnp-C 2016 scrotum qd Betamethasone 12/20/ Hx Cream 0.1% 30gm apply Eun Valerate 2016 - sparingly to [facility], 01/03/ affected Afnp-C 2016 area qd Atrovent HFA 08/17/ Hx Aerosol 17mcg/Act 12.90 1 puff four Kellee 2016 - 0gm times a day [place], 03/07/ M.D. 2016 Spiriva 03/03/ Hx Capsules 18mcg 1caps inhale Avtar Collazo 2015 - contents one Ring, 03/11/ of capsule M.D. 2015 by mouth daily Ketoconazole 02/18/ Hx Cream 2% 60uni apply to 110.4 Avtar 2015 - ts affected Jhonathan, 03/07/ area every M.D. 2015 day Clotrimazole/Be 02/17/ Hx Cream 1-0.05% 60uni apply to 110.4 Avtar tamethasone 2015 - ts affected Jhonathan, Dipropionate 02/18/ area twice a M.D. 2014 day Zoloft 12/02/ Hx Tablets 100mg 30tab 1 by mouth Avtar 2014 bid Ring, M.D. 2016 Keppra 12/02/ Hx Tablets 500mg 60tab 2 tab po qd Avtar 2014 Ring, M.D. 2017 Aspirin Ec 12/02/ Hx Tablets DR 81mg 1 by mouth Avtar Lo-Dose 2014 - every day Ring, .D. 2015 Gabapentin 12/02/ Hx Capsules 400mg 60cap 2 tabs po qd Avtar 2014 am Ring, .D. 2016 Depakote 12/02/ Hx Tablets DR 500mg 90tab 2 tabs po Avtar 2014 qhs Ring, M.D. 2015 Advair HFA / Hx Aerosol 230-21mcg 1unit take 2 Avtar - /Act s inhalations Ring, 12/20/ twice daily M.D. 2015 as directed Benadryl / Hx Capsules 25mg [...] po qd Unknown 0000 - or as 2015 Metoprolol 00/ Hx Tablets 100mg 1 po qd am Unknown Tartrate 0000 - 2015 Metoprolol 00/ Hx Tablets 50mg 1 by mouth Unknown Tartrate 0000 - twice a day 2015 Sertraline HCL / Hx Tablets 100mg 1 by mouth Unknown 0000 - every day 2015 Metoprolol 00/ Hx Tablets 25mg 1 by mouth Unknown Tartrate 0000 - daily 2016 Xarelto 00/ Hx Tablets 20mg 1 by mouth Unknown 0000 - every day 2016 Zoloft 00/ Hx Tablets 100mg 90tab 1 by mouth Kellee 0000 - s every day [place], 06/28/ M.D. 2017 Gabapentin / Hx Capsules 100mg 4 po bid Unknown 0000 - 2016 Gabapentin 00/ Hx Capsules 300mg 1 by mouth Unknown 0000 - three times 2016 Metoprolol / Hx Tablets ER 50mg 1 by mouth Unknown Succinate ER 0000 - 24HR every day 2018 Immunizations CPT Code Status Date Vaccine Lot # [id number] Given 04/05/2018 Pneumococcal Immunization [id number] Given 04/05/2018 Influenza Vac, Quadrivalent, Slit Virus, Im [id number] Given 05/18/2016 Influenza Vac, Quadrivalent, Slit Virus, Im [id number] Given 05/31/2015 Influenza Vac, Quadrivalent, Slit Virus, Im [id number] Given 05/05/2014 Pneumococcal Conjugate [id number] Given 03/25/2012 DO Not Use Split Influenza Virus Vaccine Vital Signs Date Vital Result Comment 08/22/2018 1:33pm BP Systolic 118 mmHg BP Diastolic 66 mmHg Heart Rate 72 /min Body Temperature 97.4 F Respiratory Rate 18 /min 06/21/2018 3:02pm BP Systolic 126 mmHg BP Diastolic 72 mmHg Heart Rate 88 /min Body Temperature 97.1 F Respiratory Rate 18 /min Weight 169.00 lb 05/17/2018 4:46pm Body Temperature 96.0 F Respiratory Rate 18 /min 04/26/2018 4:38pm BP Systolic 120 mmHg BP Diastolic 70 mmHg Heart Rate 78 /min Body Temperature 97.6 F Respiratory Rate 22 /min Weight 177.00 lb 04/20/2018 9:26am BP Systolic 118 mmHg BP Diastolic 66 mmHg Heart Rate 76 /min Body Temperature 98.0 F Respiratory Rate 17 /min O2 % BldC Oximetry 98 % Ra Height 68.5 inches 5'8.50" Weight 170.25 lb BMI (Body Mass Index) 25.5 kg/m2 04/05/2018 2:53pm BP Systolic 120 mmHg BP Diastolic 86 mmHg Heart Rate 96 /min Body Temperature 97.9 F Respiratory Rate 17 /min Height 68.5 inches 5'8.50" Weight 180.12 lb BMI (Body Mass Index) 27.0 kg/m2 01/30/2018 5:06pm BP Systolic 132 mmHg BP Diastolic 88 mmHg Heart Rate 80 /min Body Temperature 97.3 F O2 % BldC Oximetry 97 % Height 68.5 inches 5'8.50" Weight 168.00 lb BMI (Body Mass Index) 25.2 kg/m2 01/16/2018 4:07pm BP Systolic 128 mmHg BP Diastolic 74 mmHg Heart Rate 72 /min Body Temperature 97.7 F Respiratory Rate 18 /min Height 68.5 inches 5'8.50" Weight 172.25 lb BMI (Body Mass Index) 25.8 kg/m2 12/26/2017 1:07pm BP Systolic 120 mmHg BP Diastolic 80 mmHg Heart Rate 66 /min Body Temperature 97.2 F Respiratory Rate 16 /min Height 68.5 inches 5'8.50" Weight 170.00 lb BMI (Body Mass Index) 25.5 kg/m2 11/21/2017 12:35pm BP Systolic 118 mmHg BP Diastolic 60 mmHg Heart Rate 102 /min Body Temperature 96.8 F Respiratory Rate 16 /min Height 68.5 inches 5'8.50" Weight 170.00 lb BMI (Body Mass Index) 25.5 kg/m2 11/02/2017 2:36pm BP Systolic 122 mmHg BP Diastolic 82 mmHg Heart Rate 68 /min Body Temperature 97.9 F Height 68.5 inches 5'8.50" Weight 183.00 lb BMI (Body Mass Index) 27.4 kg/m2 10/19/2017 3:55pm BP Systolic 110 mmHg BP Diastolic 70 mmHg Heart Rate 80 /min Body Temperature 97.9 F Respiratory Rate 16 /min Height 68.5 inches 5'8.50" Weight 183.00 lb BMI (Body Mass Index) 27.4 kg/m2 09/20/2017 4:43pm BP Systolic 104 mmHg BP Diastolic 60 mmHg Heart Rate 86 /min Body Temperature 97.4 F Respiratory Rate 18 /min Height 68.5 inches 5'8.50" Weight 175.12 lb BMI (Body Mass Index) 26.2 kg/m2 08/31/2017 9:44am BP Systolic 136 mmHg BP Diastolic 88 mmHg Heart Rate 82 /min Body Temperature 97.6 F Respiratory Rate 17 /min Height 68.5 inches 5'8.50" Weight 172.00 lb BMI (Body Mass Index) 25.8 kg/m2 08/22/2017 3:00pm BP Systolic 100 mmHg BP Diastolic 70 mmHg Heart Rate 72 /min Body Temperature 97.0 F Height 68.5 inches 5'8.50" Weight 167.00 lb BMI (Body Mass Index) 25.0 kg/m2 07/25/2017 11:58am BP Systolic 106 mmHg BP Diastolic 64 mmHg Heart Rate 66 /min Body Temperature 98.1 F Height 68.5 inches 5'8.50" Weight 168.00 lb BMI (Body Mass Index) 25.2 kg/m2 07/04/2017 1:26pm BP Systolic 128 mmHg BP Diastolic 100 mmHg Heart Rate 72 /min Body Temperature 96.4 F Weight 154.00 lb 06/28/2017 11:04am BP Systolic 102 mmHg BP Diastolic 60 mmHg Heart Rate 74 /min Body Temperature 97.7 F Respiratory Rate 16 /min Weight 166.00 lb 06/11/2017 4:25pm BP Systolic 130 mmHg BP Diastolic 68 mmHg Heart Rate 78 /min Body Temperature 97.9 F Height 68.5 inches 5'8.50" Weight 160.12 lb BMI (Body Mass Index) 24.0 kg/m2 05/07/2017 4:49pm BP Systolic 120 mmHg BP Diastolic 90 mmHg Heart Rate 68 /min Body Temperature 97.8 F Respiratory Rate 18 /min Height 68.5 inches 5'8.50" Weight 167.00 lb BMI (Body Mass Index) 25.0 kg/m2 04/20/2017 4:22pm BP Systolic 116 mmHg BP Diastolic 74 mmHg Heart Rate 84 /min Body Temperature 98.4 F Respiratory Rate 16 /min Height 68.5 inches 5'8.50" Weight 169.00 lb BMI (Body Mass Index) 25.3 kg/m2 12/21/2016 4:20pm BP Systolic 128 mmHg BP Diastolic 70 mmHg Heart Rate 68 /min Body Temperature 98.0 F Respiratory Rate 16 /min Height 68.5 inches 5'8.50" Weight 168.00 lb BMI (Body Mass Index) 25.2 kg/m2 12/01/2016 4:06pm BP Systolic 124 mmHg BP Diastolic 68 mmHg Heart Rate 64 /min Body Temperature 97.9 F Respiratory Rate 16 /min Height 68.5 inches 5'8.50" Weight 166.00 lb BMI (Body Mass Index) 24.9 kg/m2 10/26/2016 7:05pm BP Systolic 114 mmHg BP Diastolic 64 mmHg Heart Rate 60 /min Body Temperature 97.5 F Respiratory Rate 16 /min Height 68.5 inches 5'8.50" Weight 163.50 lb BMI (Body Mass Index) 24.5 kg/m2 05/24/2016 2:44pm BP Systolic 100 mmHg BP Diastolic 74 mmHg Heart Rate 78 /min Body Temperature 97.0 F Height 68.5 inches 5'8.50" Weight 163.00 lb BMI (Body Mass Index) 24.4 kg/m2 04/18/2016 2:14pm BP Systolic 130 mmHg BP Diastolic 90 mmHg Heart Rate 68 /min Body Temperature 98.3 F Respiratory Rate 20 /min O2 % BldC Oximetry 98 % Height 68.5 inches 5'8.50" Weight 169.00 lb BMI (Body Mass Index) 25.3 kg/m2 03/07/2016 3:15pm BP Systolic 110 mmHg BP Diastolic 76 mmHg Heart Rate 64 /min Body Temperature 98.8 F Respiratory Rate 20 /min Height 68.5 inches 5'8.50" Weight 166.00 lb BMI (Body Mass Index) 24.9 kg/m2 01/19/2016 1:49pm BP Systolic 124 mmHg BP Diastolic 74 mmHg Heart Rate 76 /min Body Temperature 98.0 F Respiratory Rate 18 /min Height 68.5 inches 5'8.50" Weight 172.00 lb BMI (Body Mass Index) 25.8 kg/m2 12/21/2015 10:40am BP Systolic 118 mmHg BP Diastolic 70 mmHg Heart Rate 70 /min Body Temperature 97.9 F Respiratory Rate 16 /min Height 68.5 inches 5'8.50" Weight 180.00 lb BMI (Body Mass Index) 27.0 kg/m2 07/14/2015 10:30am BP Systolic 110 mmHg BP Diastolic 70 mmHg Heart Rate 72 /min Body Temperature 97.4 F Respiratory Rate 20 /min O2 % BldC Oximetry 98 % Height 68.5 inches 5'8.50" Weight 183.00 lb BMI (Body Mass Index) 27.4 kg/m2 03/03/2015 3:29pm BP Systolic 116 mmHg BP Diastolic 80 mmHg Heart Rate 76 /min Respiratory Rate 16 /min Height 68.5 inches 5'8.50" 02/17/2015 2:14pm BP Systolic 118 mmHg BP Diastolic 70 mmHg Heart Rate 72 /min Body Temperature 98.0 F Respiratory Rate 18 /min Height 68.5 inches 5'8.50" Weight 188.00 lb BMI (Body Mass Index) 28.2 kg/m2 01/20/2015 1:45pm BP Systolic 122 mmHg BP Diastolic 80 mmHg Heart Rate 72 /min Body Temperature 97.5 F Respiratory Rate 18 /min Height 68.5 inches 5'8.50" Weight 182.00 lb BMI (Body Mass Index) 27.3 kg/m2 12/02/2014 10:03am BP Systolic 120 mmHg BP Diastolic 80 mmHg Heart Rate 76 /min Body Temperature 98.0 F Respiratory Rate 18 /min Height 68.5 inches 5'8.50" Weight 179.00 lb BMI (Body Mass Index) 26.8 kg/m2 Results Test Date Facility Test Result H/L Range Note Laboratory test 08/22/2018 [facility], <pending> finding [address] [place] [address] ([phone] - Laboratory test 08/15/2018 [facility] Ammonia 129 mcmol/L High 16-53 finding Laboratory test 08/15/2018 [facility] Lactic Acid 3.2 mmol/L High 0.5-2.0 1 finding CBC Auto Diff 08/15/2018 [facility] White Blood 4.6 10^3/uL N 3.5-10.8 Count Red Blood Count 4.18 10^6/uL N 4.00-5.40 Hemoglobin 12.9 g/dL Low 14.0-18.0 Hematocrit 38 % Low 42-52 Mean Corpuscular Volume 91 fL N 80-94 Mean Corpuscular Hemoglobin 31 pg N 27-31 Mean Corpuscular HGB Conc 34 g/dL N 31-36 Red Cell Distribution Width 17 % High 10.5-15 Platelet Count 126 10^3/uL Low 150-450 Mean Platelet Volume 8.3 fL N 7.4-10.4 Abs Neutrophils 3.0 10^3/uL N 1.5-7.7 Abs Lymphocytes 1.0 10^3/uL N 1.0-4.8 Abs Monocytes 0.5 10^3/uL N 0-0.8 Abs Eosinophils 0 10^3/uL N 0-0.6 Abs Basophils 0 10^3/uL N 0-0.2 Abs Nucleated RBC 0 10^3/uL Granulocyte % 65.6 % Lymphocyte % 21.5 % Monocyte % 11.8 % Eosinophil % 0.6 % Basophil % 0.5 % Nucleated Red Blood Cells % 0.3 Inr/Protime 08/15/2018 [facility] Inr 1.14 High 0.77-1.02 Laboratory test finding 08/15/2018 [facility] Troponin I 0.01 ng/mL <0.04 2 Comp Metabolic Panel 08/15/2018 [facility] Sodium 128 mmol/L Low 135-145 Potassium 3.5 mmol/L N 3.5-5.0 Chloride 94 mmol/L Low 101-111 Co2 Carbon Dioxide 26 mmol/L N 22-32 Anion Gap 8 mmol/L N 2-11 Glucose 151 mg/dL High 70-100 Blood Urea Nitrogen 12 mg/dL N 6-24 Creatinine 1.04 mg/dL N 0.67-1.17 BUN/Creatinine Ratio 11.5 N 8-20 Calcium 9.0 mg/dL N 8.6-10.3 Total Protein 6.7 g/dL N 6.4-8.9 Albumin 3.7 g/dL N 3.2-5.2 Globulin 3.0 g/dL N 2-4 Albumin/Globulin Ratio 1.2 N 1-3 Total Bilirubin 1.20 mg/dL High 0.2-1.0 Alkaline Phosphatase 63 U/L N 34-104 Alt 8 U/L N 7-52 Ast 15 U/L N 13-39 Egfr Non- 72.1 >60 Egfr 87.3 >60 3 Laboratory test finding 08/15/2018 [facility] Magnesium 1.9 mg/dL N 1.9-2.7 Creatine Kinase(CK) 74 U/L N 10-223 C Reactive Protein 44.07 mg/L High <8.01 TSH (Thyroid Stim Horm) 6.24 mcIU/mL High 0.34-5.60 Digoxin < 0.3 ng/ml Low 0.8-2.0 Alcohol < 10 mg/dL N <10 Laboratory test 06/18/2018 [facility] Levetiracetam (Keppra) 18.8 g/mL 4 finding Urine Culture And 06/18/2018 [facility] Urine Culture SEE RESULT 5 Sensitivities BELOW Laboratory test 06/18/2018 [facility] Magnesium 2.2 mg/dL N 1.9-2.7 finding Valproic Acid (Depakene) 81.0 g/mL N 50-100 Alcohol < 10 mg/dL N <10 Lactic Acid 7.6 mmol/L High 0.5-2.0 6 Comp Metabolic Panel 06/18/2018 [facility] Sodium 121 mmol/L Low 135-145 Potassium 4.6 mmol/L N 3.5-5.0 Chloride 88 mmol/L Low 101-111 Co2 Carbon Dioxide 19 mmol/L Low 22-32 Anion Gap 14 mmol/L High 2-11 Glucose 139 mg/dL High 70-100 Blood Urea Nitrogen 9 mg/dL N 6-24 Creatinine 0.95 mg/dL N 0.67-1.17 BUN/Creatinine Ratio 9.5 N 8-20 Calcium 9.4 mg/dL N 8.6-10.3 Total Protein 7.3 g/dL N 6.4-8.9 Albumin 4.1 g/dL N 3.2-5.2 Globulin 3.2 g/dL N 2-4 Albumin/Globulin Ratio 1.3 N 1-3 Total Bilirubin 0.90 mg/dL N 0.2-1.0 Alkaline Phosphatase 82 U/L N 34-104 Alt 20 U/L N 7-52 Ast 26 U/L N 13-39 Egfr Non- 80.1 >60 Egfr 96.9 >60 7 Urinalysis Profile 06/18/2018 [facility] Urine Color Yellow Urine Appearance Cloudy Urine Specific [place] 1.011 N 1.010-1.030 Urine pH 6.0 N 5-9 Urine Urobilinogen Negative Negative Urine Ketones Trace Abnormal Negative Urine Protein 1+(30 mg/dL) Abnormal Negative Urine Leukocytes Negative Negative Urine Blood 1+ Abnormal Negative Urine Nitrite Negative Negative Urine Bilirubin Negative Negative Urine Glucose Negative Negative Urine White Blood Cell Trace(0-5/hpf) Absent Urine Red Blood Cell 2+(6-10/hpf) Abnormal Absent Urine Bacteria Absent Absent Urine Hyaline Casts Present Abnormal Absent CBC Auto Diff 06/18/2018 [facility] White Blood Count 5.9 10^3/uL N 3.5-10.8 Red Blood Count 4.70 10^6/uL N 4.00-5.40 Hemoglobin 14.6 g/dL N 14.0-18.0 Hematocrit 43 % N 42-52 Mean Corpuscular Volume 92 fL N 80-94 Mean Corpuscular Hemoglobin 31 pg N 27-31 Mean Corpuscular HGB Conc 34 g/dL N 31-36 Red Cell Distribution Width 14 % N 10.5-15 Platelet Count 210 10^3/uL N 150-450 Mean Platelet Volume 7.5 fL N 7.4-10.4 Abs Neutrophils 4.6 10^3/uL N 1.5-7.7 Abs Lymphocytes 0.6 10^3/uL Low 1.0-4.8 Abs Monocytes 0.6 10^3/uL N 0-0.8 Abs Eosinophils 0 10^3/uL N 0-0.6 Abs Basophils 0 10^3/uL N 0-0.2 Abs Nucleated RBC 0 10^3/uL Granulocyte % 78.7 % Lymphocyte % 10.5 % Monocyte % 9.6 % Eosinophil % 0.6 % Basophil % 0.6 % Nucleated Red Blood Cells % 0.1 Inr/Protime 06/18/2018 [facility] Inr 0.93 N 0.77-1.02 Laboratory test finding 06/11/2018 [facility] Osmolality Urine 288 mOsm/kg N 100 -1150 Sodium Random Urine 19 mmol/L Cortisol 15.69 g/dL 8 Urine Drug SCR ED 06/11/2018 [facility] Barbiturates Urine None Detected None Detect & Pain Clinic Screen Benzodiazepine Urine Screen None Detected None Detect Urine Cannabinoids Screen Presumptive Posi <SEE NOTE> Abnormal None Detect 9 Urine Cocaine Screen None Detected None Detect Urine Opiates Screen None Detected None Detect Urine Phencyclidine Screen None Detected None Detect 10 Amphetamine Ur Screen None Detected None Detect Laboratory test finding 06/11/2018 [facility] Acetaminophen < 15 g/mL 11 Alcohol < 10 mg/dL N <10 Salicylate < 2.50 mg/dL <30 TSH (Thyroid Stim Horm) 10.83 mcIU/mL High 0.34-5.60 Comp Metabolic Panel 06/11/2018 [facility] Potassium 4.7 mmol/L N 3.5-5.0 Chloride 83 mmol/L Low 101-111 Co2 Carbon Dioxide 25 mmol/L N 22-32 Glucose 84 mg/dL N 70-100 Blood Urea Nitrogen 10 mg/dL N 6-24 Creatinine 1.01 mg/dL N 0.67-1.17 BUN/Creatinine Ratio 9.9 N 8-20 Calcium 9.4 mg/dL N 8.6-10.3 Total Protein 7.7 g/dL N 6.4-8.9 Albumin 4.1 g/dL N 3.2-5.2 Globulin 3.6 g/dL N 2-4 Albumin/Globulin Ratio 1.1 N 1-3 Total Bilirubin 1.30 mg/dL High 0.2-1.0 Alkaline Phosphatase 108 U/L High 34-104 Alt 21 U/L N 7-52 Ast 30 U/L N 13-39 Egfr Non- 74.6 >60 Egfr 90.3 >60 12 Sodium 117 mmol/L Low 135-145 13 Anion Gap 9 mmol/L N 2-11 Urinalysis Profile 06/11/2018 [facility] Urine Color Yessica Urine Appearance Clear Urine Specific Cly[place] 1.014 N 1.010-1.030 Urine pH 5.0 N 5-9 Urine Urobilinogen Positive Abnormal Negative Urine Ketones Trace Abnormal Negative Urine Protein Negative Negative Urine Leukocytes Negative Negative Urine Blood Negative Negative Urine Nitrite Negative Negative Urine Bilirubin Negative Negative Urine Glucose Negative Negative CBC Auto Diff 06/11/2018 [facility] White Blood Count 4.0 10^3/uL N 3.5-10.8 Red Blood Count 5.43 10^6/uL High 4.00-5.40 Hemoglobin 17.2 g/dL N 14.0-18.0 Hematocrit 49 % N 42-52 Mean Corpuscular Volume 90 fL N 80-94 Mean Corpuscular Hemoglobin 32 pg High 27-31 Mean Corpuscular HGB Conc 35 g/dL N 31-36 Red Cell Distribution Width 14 % N 10.5-15 Platelet Count 185 10^3/uL N 150-450 Mean Platelet Volume 8.2 fL N 7.4-10.4 Abs Neutrophils 2.3 10^3/uL N 1.5-7.7 Abs Lymphocytes 1.0 10^3/uL N 1.0-4.8 Abs Monocytes 0.5 10^3/uL N 0-0.8 Abs Eosinophils 0.1 10^3/uL N 0-0.6 Abs Basophils 0 10^3/uL N 0-0.2 Abs Nucleated RBC 0 10^3/uL Granulocyte % 57.0 % Lymphocyte % 25.8 % Monocyte % 13.3 % Eosinophil % 2.9 % Basophil % 1.0 % Nucleated Red Blood Cells % 0.6 Laboratory test 06/11/2018 [facility] Valproic Acid 99.0 g/mL N 50-100 finding (Depakene) Laboratory test 06/11/2018 [facility] Test SEE ATTACHED finding (607)- - Laboratory test 04/17/2018 [facility] Magnesium 1.9 mg/dL N 1.9-2.7 finding Creatine Kinase(CK) 188 U/L N 10-223 Troponin I 0.01 ng/mL <0.04 Alcohol < 10 mg/dL N <10 TSH (Thyroid Stim Horm) 5.08 mcIU/mL N 0.34-5.60 Comp Metabolic Panel 04/17/2018 [facility] Sodium 130 mmol/L Low 135-145 Chloride 98 mmol/L Low 101-111 Co2 Carbon Dioxide 29 mmol/L N 22-32 Glucose 124 mg/dL High 70-100 Blood Urea Nitrogen 9 mg/dL N 6-24 Creatinine 0.93 mg/dL N 0.67-1.17 BUN/Creatinine Ratio 9.7 N 8-20 Calcium 9.0 mg/dL N 8.6-10.3 Total Protein 6.7 g/dL N 6.4-8.9 Albumin 3.9 g/dL N 3.2-5.2 Globulin 2.8 g/dL N 2-4 Albumin/Globulin Ratio 1.4 N 1-3 Total Bilirubin 0.90 mg/dL N 0.2-1.0 Alkaline Phosphatase 69 U/L N 34-104 Alt 26 U/L N 7-52 Ast 31 U/L N 13-39 Egfr Non- 82.1 >60 Egfr 99.3 >60 14 Potassium 5.1 mmol/L High 3.5-5.0 Anion Gap 3 mmol/L N 2-11 Urinalysis Profile 04/17/2018 [facility] Urine Color Yellow Urine Appearance Clear Urine Specific Clyo 1.011 N 1.010-1.030 Urine pH 6.0 N 5-9 Urine Urobilinogen Positive Abnormal Negative Urine Ketones Negative Negative Urine Protein 2+(100 mg/dL) Abnormal Negative Urine Leukocytes Negative Negative Urine Blood Negative Negative Urine Nitrite Negative Negative Urine Bilirubin Negative Negative Urine Glucose Negative Negative Urine White Blood Cell Absent Absent Urine Red Blood Cell Trace(0-2/hpf) Absent Urine Bacteria Absent Absent Urine Hyaline Casts Present Abnormal Absent Laboratory test finding 04/17/2018 [facility] Partial Thrombo 29.1 seconds N 26.0-36.3 Time PTT Inr/Protime 04/17/2018 [facility] Inr 0.99 N 0.77-1.02 Laboratory test finding 04/17/2018 [facility] Lactic Acid 1.6 mmol/L N 0.5-2.0 15 CBC Auto Diff 04/17/2018 [facility] White Blood Count 3.8 10^3/uL N 3.5-10.8 Red Blood Count 4.18 10^6/uL N 4.00-5.40 Hemoglobin 13.6 g/dL Low 14.0-18.0 Hematocrit 40 % Low 42-52 Mean Corpuscular Volume 96 fL High 80-94 Mean Corpuscular Hemoglobin 33 pg High 27-31 Mean Corpuscular HGB Conc 34 g/dL N 31-36 Red Cell Distribution Width 15 % N 10.5-15 Platelet Count 180 10^3/uL N 150-450 Mean Platelet Volume 7.2 um3 Low 7.4-10.4 Abs Neutrophils 2.7 10^3/uL N 1.5-7.7 Abs Lymphocytes 0.6 10^3/uL Low 1.0-4.8 Abs Monocytes 0.4 10^3/uL N 0-0.8 Abs Eosinophils 0.1 10^3/uL N 0-0.6 Abs Basophils 0 10^3/uL N 0-0.2 Abs Nucleated RBC 0 10^3/uL Granulocyte % 71.3 % N 38-83 Lymphocyte % 15.0 % Low 25-47 Monocyte % 10.1 % High 0-7 Eosinophil % 2.7 % N 0-6 Basophil % 0.9 % N 0-2 Nucleated Red Blood Cells % 0.1 Laboratory test 04/17/2018 [facility] Levetiracetam 60.1 g/mL Abnormal 16 finding (Keppra) Urine Drug SCR 04/17/2018 [facility] Amphetamine Ur None Detected None Detect ED & Pain Clinic Screen Barbiturates Urine Screen None Detected None Detect Benzodiazepine Urine Screen None Detected None Detect Urine Cannabinoids Screen Presumptive Posi <SEE NOTE> Abnormal None Detect 17 Urine Cocaine Screen None Detected None Detect Urine Opiates Screen None Detected None Detect Urine Phencyclidine Screen None Detected None Detect 18 CBC Auto Diff 01/31/2018 [facility] White Blood Count 4.6 10^3/uL N 3.5-10.8 Red Blood Count 4.63 10^6/uL N 4.00-5.40 Hemoglobin 14.6 g/dL N 14.0-18.0 Hematocrit 43 % N 42-52 Mean Corpuscular Volume 93 fL N 80-94 Mean Corpuscular Hemoglobin 32 pg High 27-31 Mean Corpuscular HGB Conc 34 g/dL N 31-36 Red Cell Distribution Width 15 % N 10.5-15 Platelet Count 171 10^3/uL N 150-450 Mean Platelet Volume 8.4 um3 N 7.4-10.4 Abs Neutrophils 2.4 10^3/uL N 1.5-7.7 Abs Lymphocytes 1.2 10^3/uL N 1.0-4.8 Abs Monocytes 0.8 10^3/uL N 0-0.8 Abs Eosinophils 0.2 10^3/uL N 0-0.6 Abs Basophils 0 10^3/uL N 0-0.2 Abs Nucleated RBC 0 10^3/uL Granulocyte % 52.9 % N 38-83 Lymphocyte % 25.7 % N 25-47 Monocyte % 16.9 % High 0-7 Eosinophil % 3.9 % N 0-6 Basophil % 0.6 % N 0-2 Nucleated Red Blood Cells % 0.2 Comp Metabolic Panel 01/31/2018 [facility] Sodium 128 mmol/L Low 135-145 Potassium 4.4 mmol/L N 3.5-5.0 Chloride 95 mmol/L Low 101-111 Co2 Carbon Dioxide 23 mmol/L N 22-32 Anion Gap 10 mmol/L N 2-11 Glucose 103 mg/dL High 70-100 Blood Urea Nitrogen 20 mg/dL N 6-24 Creatinine 1.34 mg/dL High 0.67-1.17 BUN/Creatinine Ratio 14.9 N 8-20 Calcium 9.0 mg/dL N 8.6-10.3 Total Protein 6.6 g/dL N 6.4-8.9 Albumin 4.0 g/dL N 3.2-5.2 Globulin 2.6 g/dL N 2-4 Albumin/Globulin Ratio 1.5 N 1-3 Total Bilirubin 0.50 mg/dL N 0.2-1.0 Alkaline Phosphatase 75 U/L N 34-104 Alt 9 U/L N 7-52 Ast 14 U/L N 13-39 Egfr Non- 54.0 >60 Egfr 65.4 >60 19 Laboratory test finding 01/31/2018 [facility] Digoxin 0.5 ng/ml Low 0.8-2.0 20 Lipid Profile (Trig/Chol/HDL) 01/08/2018 [facility] Triglycerides 74 mg/dL 21 Cholesterol 184 mg/dL 22 HDL Cholesterol 62.5 mg/dL 23 LDL Cholesterol 107 mg/dL 24 Laboratory test finding 01/08/2018 [facility] Acetaminophen < 15 g/mL 25 Alcohol 43 mg/dL High <10 Salicylate < 2.50 mg/dL <30 TSH (Thyroid Stim Horm) 2.78 mcIU/mL N 0.34-5.60 Comp Metabolic Panel 01/08/2018 [facility] Sodium 125 mmol/L Low 135-145 Potassium 4.3 mmol/L N 3.5-5.0 Chloride 92 mmol/L Low 101-111 Co2 Carbon Dioxide 23 mmol/L N 22-32 Anion Gap 10 mmol/L N 2-11 Glucose 83 mg/dL N 70-100 Blood Urea Nitrogen 5 mg/dL Low 6-24 Creatinine 0.96 mg/dL N 0.67-1.17 BUN/Creatinine Ratio 5.2 Low 8-20 Calcium 9.1 mg/dL N 8.6-10.3 Total Protein 7.1 g/dL N 6.4-8.9 Albumin 4.1 g/dL N 3.2-5.2 Globulin 3.0 g/dL N 2-4 Albumin/Globulin Ratio 1.4 N 1-3 Total Bilirubin 0.80 mg/dL N 0.2-1.0 Alkaline Phosphatase 68 U/L N 34-104 Alt 16 U/L N 7-52 Ast 24 U/L N 13-39 Egfr Non- 79.4 >60 Egfr 96.0 >60 26 Inr/Protime 01/08/2018 [facility] Inr 0.94 N 0.77-1.02 Urinalysis Profile 01/08/2018 [facility] Urine Color Straw Urine Appearance Clear Urine Specific Clyo 1.004 Low 1.010-1.030 Urine pH 6.0 N 5-9 Urine Urobilinogen Negative Negative Urine Ketones Negative Negative Urine Protein Negative Negative Urine Leukocytes Negative Negative Urine Blood Negative Negative Urine Nitrite Negative Negative Urine Bilirubin Negative Negative Urine Glucose Negative Negative CBC Auto Diff 01/08/2018 [facility] White Blood Count 5.0 10^3/uL N 3.5-10.8 Red Blood Count 4.45 10^6/uL N 4.00-5.40 Hemoglobin 14.2 g/dL N 14.0-18.0 Hematocrit 40 % Low 42-52 Mean Corpuscular Volume 91 fL N 80-94 Mean Corpuscular Hemoglobin 32 pg High 27-31 Mean Corpuscular HGB Conc 35 g/dL N 31-36 Red Cell Distribution Width 14 % N 10.5-15 Platelet Count 189 10^3/uL N 150-450 Mean Platelet Volume 8.2 um3 N 7.4-10.4 Abs Neutrophils 2.9 10^3/uL N 1.5-7.7 Abs Lymphocytes 1.3 10^3/uL N 1.0-4.8 Abs Monocytes 0.6 10^3/uL N 0-0.8 Abs Eosinophils 0.2 10^3/uL N 0-0.6 Abs Basophils 0.1 10^3/uL N 0-0.2 Abs Nucleated RBC 0 10^3/uL Granulocyte % 56.7 % N 38-83 Lymphocyte % 25.9 % N 25-47 Monocyte % 12.6 % High 0-7 Eosinophil % 3.7 % N 0-6 Basophil % 1.1 % N 0-2 Nucleated Red Blood Cells % 0.1 Urine Drug SCR ED 01/08/2018 [facility] Amphetamine Ur Screen None Detected None Detect & Pain Clinic Barbiturates Urine Screen None Detected None Detect Benzodiazepine Urine Screen None Detected None Detect Urine Cannabinoids Screen Presumptive Posi <SEE NOTE> Abnormal None Detect 27 Urine Cocaine Screen None Detected None Detect Urine Opiates Screen None Detected None Detect Urine Phencyclidine Screen None Detected None Detect 28 Laboratory test 08/31/2017 [facility] Brain Natural 299 pg/mL High < 100 finding (607)- - Peptide CBC Electronic 08/31/2017 [facility] ([facility]) WBC 5.8 x10^3/UL 4.0- 10.0 [facility] RBC 4.98 x10^6/UL 3.93-6.00 HGB 15.1 g/dL 12.0-17.0 HCT 43 % 35-50 MCV 86.5 fL 80.0-95.0 MCH 30.3 pg 25.6-32.2 MCHC 35.0 g/dL 32.2-36.0 RDW-CV 14.9 % High 11.6-14.4 PLT 240 x10^3/UL 163-400 MPV 9.9 fL 9.4-12.4 Garret# 3.23 x10^3/UL 1.56-6.13 Lymph# 1.58 x10^3/UL 1.18-3.74 [place]# 0.62 x10^3/UL 0.24-0.82 Eos # 0.3 x10^3/UL 0.0-0.5 Baso # 0.03 x10^3/UL 0.01-0.08 Garret% 56.1 % 34.0-70.0 Lymph % 27.4 % 20.0-52.0 [place]% 10.7 % 5.0-12.0 Eos% 5.0 % 0.7-7.0 Baso% 0.5 % 0.1-1.2 Comprehensive Metabolic 08/31/2017 [facility] ([facility]) Sodium 137 mEq/L 134-149 Prof Potassium 5.5 mEq/L 3.6-5.5 Chloride 94 mEq/L [...] >=60 GFR >60 ml/min/1.73m^ >=60 Laboratory test 08/31/2017 [facility] ([facility]) Magnesium, 1.9 mEq/L 1.2 -2.1 finding Serum Laboratory test 08/31/2017 [facility] Digoxin, Serum 1.2 ng/mL High 0.5-0.9 29, 30 finding [address] [place] [address] (607)- - Urinalysis 08/21/2017 [facility] Urine Color Yellow Profile Urine Appearance Cloudy Urine Specific Clyo 1.011 N 1.010-1.030 Urine pH 5.0 N 5-9 Urine Urobilinogen Negative Negative Urine Ketones Negative Negative Urine Protein 1+(30 mg/dL) Abnormal Negative Urine Leukocytes Negative Negative Urine Blood Negative Negative Urine Nitrite Negative Negative Urine Bilirubin Negative Negative Urine Glucose Negative Negative Urine White Blood Cell Absent Absent Urine Red Blood Cell Absent Absent Urine Bacteria Absent Absent Urine Hyaline Casts Present Abnormal Absent Laboratory test finding 08/21/2017 [facility] Magnesium 2.1 mg/dL N 1.9-2.7 Creatine Kinase(CK) 68 U/L N 10-223 Alcohol < 10 mg/dL N <10 TSH (Thyroid Stim Horm) 6.17 mcIU/mL High 0.34-5.60 Levetiracetam (Keppra) <2.0 g/mL Abnormal 31 Comp Metabolic Panel 08/21/2017 [facility] Sodium 127 mmol/L Low 133-145 Chloride 96 mmol/L Low 101-111 Co2 Carbon Dioxide 26 mmol/L N 22-32 Glucose 81 mg/dL N 70-100 Blood Urea Nitrogen 10 mg/dL N 6-24 Creatinine 0.86 mg/dL N 0.67-1.17 BUN/Creatinine Ratio 11.6 N 8-20 Calcium 9.0 mg/dL N 8.6-10.3 Total Protein 7.1 g/dL N 6.4-8.9 Albumin 3.9 g/dL N 3.2-5.2 Globulin 3.2 g/dL N 2-4 Albumin/Globulin Ratio 1.2 N 1-3 Total Bilirubin 0.40 mg/dL N 0.2-1.0 Alkaline Phosphatase 65 U/L N 34-104 Alt 12 U/L N 7-52 Ast 20 U/L N 13-39 Egfr Non- 90.1 >60 Egfr 115.9 >60 32 Potassium 5.1 mmol/L High 3.5-5.0 Anion Gap 5 mmol/L N 2-11 CBC Auto Diff 08/21/2017 [facility] White Blood Count 6.5 10^3/uL N 3.5-10.8 Red Blood Count 4.65 10^6/uL N 4.0-5.4 Hemoglobin 14.2 g/dL N 14.0-18.0 Hematocrit 41 % Low 42-52 Mean Corpuscular Volume 89 fL N 80-94 Mean Corpuscular Hemoglobin 31 pg N 27-31 Mean Corpuscular HGB Conc 35 g/dL N 31-36 Red Cell Distribution Width 15 % N 10.5-15 Platelet Count 244 10^3/uL N 150-450 Mean Platelet Volume 8 um3 N 7.4-10.4 Abs Neutrophils 4.7 10^3/uL N 1.5-7.7 Abs Lymphocytes 1.1 10^3/uL N 1.0-4.8 Abs Monocytes 0.6 10^3/uL N 0-0.8 Abs Eosinophils 0.1 10^3/uL N 0-0.6 Abs Basophils 0 10^3/uL N 0-0.2 Abs Nucleated RBC 0 10^3/uL Granulocyte % 72.5 % N 38-83 Lymphocyte % 16.5 % Low 25-47 Monocyte % 9.0 % N 1-9 Eosinophil % 1.4 % N 0-6 Basophil % 0.6 % N 0-2 Nucleated Red Blood Cells % 0.2 Laboratory test 08/21/2017 [facility] Inr/Protime 0.91 N 0.77-1.02 finding Laboratory test 08/16/2017 [facility] ([facility] Lab Test See Attached finding CBC Auto Diff 08/16/2017 [facility] White Blood Count 7.5 10^3/uL N 3.5-10.8 Red Blood Count 5.09 10^6/uL N 4.0-5.4 Hemoglobin 15.5 g/dL N 14.0-18.0 Hematocrit 46 % N 42-52 Mean Corpuscular Volume 90 fL N 80-94 Mean Corpuscular Hemoglobin 30 pg N 27-31 Mean Corpuscular HGB Conc 34 g/dL N 31-36 Red Cell Distribution Width 16 % High 10.5-15 Platelet Count 283 10^3/uL N 150-450 Mean Platelet Volume 7 um3 Low 7.4-10.4 Abs Neutrophils 4.4 10^3/uL N 1.5-7.7 Abs Lymphocytes 2.0 10^3/uL N 1.0-4.8 Abs Monocytes 0.9 10^3/uL High 0-0.8 Abs Eosinophils 0.2 10^3/uL N 0-0.6 Abs Basophils 0.1 10^3/uL N 0-0.2 Abs Nucleated RBC 0 10^3/uL Granulocyte % 59.0 % N 38-83 Lymphocyte % 26.7 % N 25-47 Monocyte % 11.6 % High 1-9 Eosinophil % 2.0 % N 0-6 Basophil % 0.7 % N 0-2 Nucleated Red Blood Cells % 0.1 Comp Metabolic Panel 08/16/2017 [facility] Sodium 126 mmol/L Low 133-145 Potassium 4.6 mmol/L N 3.5-5.0 Chloride 90 mmol/L Low 101-111 Co2 Carbon Dioxide 25 mmol/L N 22-32 Anion Gap 11 mmol/L N 2-11 Glucose 100 mg/dL N 70-100 Blood Urea Nitrogen 12 mg/dL N 6-24 Creatinine 1.01 mg/dL N 0.67-1.17 BUN/Creatinine Ratio 11.9 N 8-20 Calcium 9.5 mg/dL N 8.6-10.3 Total Protein 7.2 g/dL N 6.4-8.9 Albumin 4.1 g/dL N 3.2-5.2 Globulin 3.1 g/dL N 2-4 Albumin/Globulin Ratio 1.3 N 1-3 Total Bilirubin 0.40 mg/dL N 0.2-1.0 Alkaline Phosphatase 71 U/L N 34-104 Alt 13 U/L N 7-52 Ast 21 U/L N 13-39 Egfr Non- 74.9 >60 Egfr 96.3 >60 33 Laboratory test finding 08/16/2017 [facility] Digoxin 2.0 ng/ml N 0.8-2.0 Alcohol 20 mg/dL High <10 Laboratory test finding 07/31/2017 [facility] Magnesium 2.1 mg/dL N 1.9-2.7 Alcohol < 10 mg/dL N <10 Digoxin 0.3 ng/ml Low 0.8-2.0 Valproic Acid (Depakene) 32.0 g/mL Low 50-100 Comp Metabolic Panel 07/31/2017 [facility] Sodium 128 mmol/L Low 133-145 Potassium 4.2 mmol/L N 3.5-5.0 Chloride 97 mmol/L Low 101-111 Co2 Carbon Dioxide 20 mmol/L Low 22-32 Anion Gap 11 mmol/L N 2-11 Glucose 94 mg/dL N 70-100 Blood Urea Nitrogen 14 mg/dL N 6-24 Creatinine 1.00 mg/dL N 0.67-1.17 BUN/Creatinine Ratio 14.0 N 8-20 Calcium 9.4 mg/dL N 8.6-10.3 Total Protein 6.7 g/dL N 6.4-8.9 Albumin 3.6 g/dL N 3.2-5.2 Globulin 3.1 g/dL N 2-4 Albumin/Globulin Ratio 1.2 N 1-3 Total Bilirubin 0.40 mg/dL N 0.2-1.0 Alkaline Phosphatase 55 U/L N 34-104 Alt 10 U/L N 7-52 Ast 14 U/L N 13-39 Egfr Non- 75.7 >60 Egfr 97.4 >60 34 CBC Auto Diff 07/31/2017 [facility] White Blood Count 5.5 10^3/uL N 3.5-10.8 Red Blood Count 4.18 10^6/uL N 4.0-5.4 Hemoglobin 12.9 g/dL Low 14.0-18.0 Hematocrit 38 % Low 42-52 Mean Corpuscular Volume 90 fL N 80-94 Mean Corpuscular Hemoglobin 31 pg N 27-31 Mean Corpuscular HGB Conc 34 g/dL N 31-36 Red Cell Distribution Width 15 % N 10.5-15 Platelet Count 187 10^3/uL N 150-450 Mean Platelet Volume 7 um3 Low 7.4-10.4 Abs Neutrophils 3.3 10^3/uL N 1.5-7.7 Abs Lymphocytes 1.2 10^3/uL N 1.0-4.8 Abs Monocytes 0.7 10^3/uL N 0-0.8 Abs Eosinophils 0.2 10^3/uL N 0-0.6 Abs Basophils 0 10^3/uL N 0-0.2 Abs Nucleated RBC 0 10^3/uL Granulocyte % 60.4 % N 38-83 Lymphocyte % 22.6 % Low 25-47 Monocyte % 13.0 % High 1-9 Eosinophil % 3.2 % N 0-6 Basophil % 0.8 % N 0-2 Nucleated Red Blood Cells % 0 Inr/Protime 07/31/2017 [facility] Inr 0.94 N 0.77-1.02 Laboratory test 07/31/2017 [facility] Lactic Acid 5.7 mmol/L High 0.5-2.0 35 finding Comprehensive 07/25/2017 [facility] ([facility]) Sodium 133 mEq/L Low 134- 149 36 Metabolic Prof Potassium 4.6 mEq/L 3.6-5.5 Chloride 102 mEq/L 94-112 Carbon Dioxide 26 mEq/L 21-32 Glucose 118 mg/dL High 70-105 37 BUN 12 mg/dL 6-26 Creatinine 0.8 mg/dL [...] GFR >60 ml/min/1.73m^ >=60 Laboratory test 07/04/2017 [facility] Ammonia, Plasma 63 g/dL 27-102 38 finding [address] [place] [address] (559)- - Urine Drug SCR 07/03/2017 [facility] Amphetamine Ur None None ED & Pain Screen Detected Detect Clinic Barbiturates Urine Screen None Detected None Detect Benzodiazepine Urine Screen None Detected None Detect Urine Cannabinoids Screen Presumptive Posi <SEE NOTE> Abnormal None Detect 39 Urine Cocaine Screen None Detected None Detect Urine Opiates Screen Presumptive Posi <SEE NOTE> Abnormal None Detect 40 Urine Phencyclidine Screen None Detected None Detect 41 Laboratory test finding 07/03/2017 [facility] Erythrocyte Sed Rate 12 mm/Hr N 0- 20 CBC Auto Diff 07/03/2017 [facility] White Blood Count 4.0 10^3/uL N 3.5-10.8 Red Blood Count 5.04 10^6/uL N 4.0-5.4 Hemoglobin 15.8 g/dL N 14.0-18.0 Hematocrit 46 % N 42-52 Mean Corpuscular Volume 90 fL N 80-94 Mean Corpuscular Hemoglobin 31 pg N 27-31 Mean Corpuscular HGB Conc 35 g/dL N 31-36 Red Cell Distribution Width 16 % High 10.5-15 Platelet Count 168 10^3/uL N 150-450 Mean Platelet Volume 7 um3 Low 7.4-10.4 Abs Neutrophils 1.9 10^3/uL N 1.5-7.7 Abs Lymphocytes 1.4 10^3/uL N 1.0-4.8 Abs Monocytes 0.6 10^3/uL N 0-0.8 Abs Eosinophils 0.1 10^3/uL N 0-0.6 Abs Basophils 0 10^3/uL N 0-0.2 Abs Nucleated RBC 0.02 10^3/uL Granulocyte % 46.5 % N 38-83 Lymphocyte % 34.3 % N 25-47 Monocyte % 15.8 % High 1-9 Eosinophil % 2.6 % N 0-6 Basophil % 0.8 % N 0-2 Nucleated Red Blood Cells % 0.5 Laboratory test finding 07/03/2017 [facility] C Reactive Protein 8.09 mg/L High < 5.00 42 Alcohol < 10 mg/dL N <10 Comp Metabolic Panel 07/03/2017 [facility] Sodium 121 mmol/L Low 133-145 Potassium 4.0 mmol/L N 3.5-5.0 Chloride 86 mmol/L Low 101-111 Co2 Carbon Dioxide 28 mmol/L N 22-32 Anion Gap 7 mmol/L N 2-11 Glucose 92 mg/dL N 70-100 Blood Urea Nitrogen 6 mg/dL N 6-24 Creatinine 0.85 mg/dL N 0.67-1.17 BUN/Creatinine Ratio 7.1 Low 8-20 Calcium 9.5 mg/dL N 8.6-10.3 Total Protein 7.7 g/dL N 6.4-8.9 Albumin 3.9 g/dL N 3.2-5.2 Globulin 3.8 g/dL N 2-4 Albumin/Globulin Ratio 1.0 N 1-3 Total Bilirubin 0.60 mg/dL N 0.2-1.0 Alkaline Phosphatase 85 U/L N 34-104 Alt 10 U/L N 7-52 Ast 18 U/L N 13-39 Egfr Non- 91.3 >60 Egfr 117.5 >60 43 Laboratory test finding 07/03/2017 [facility] Lactic Acid 0.9 mmol/L N 0.5-2.0 44 Inr/Protime 07/03/2017 [facility] Inr 1.04 High 0.77-1.02 45 Laboratory test finding 07/03/2017 [facility] Carbon Monoxide 5.4 % High <4.0 Urinalysis Profile 06/07/2017 [facility] Urine Color Yellow Urine Appearance Clear Urine Specific Clyo 1.012 N 1.010-1.030 Urine pH 5.0 N 5-9 Urine Urobilinogen Negative Negative Urine Ketones Negative Negative Urine Protein Negative Negative Urine Leukocytes Negative Negative Urine Blood Negative Negative Urine Nitrite Negative Negative Urine Bilirubin Negative Negative Urine Glucose Negative Negative Urine Drug SCR ED 06/07/2017 [facility] Amphetamine Ur Screen None Detected None Detect & Pain Clinic Barbiturates Urine Screen None Detected None Detect Benzodiazepine Urine Screen None Detected None Detect Urine Cannabinoids Screen Presumptive Posi <SEE NOTE> Abnormal None Detect 46 Urine Cocaine Screen None Detected None Detect Urine Opiates Screen Presumptive Posi <SEE NOTE> Abnormal None Detect 47 Urine Phencyclidine Screen None Detected None Detect 48 Laboratory test 06/07/2017 [facility] Urine Culture And SEE RESULT 49 finding Sensitivities BELOW CBC Auto Diff 06/06/2017 [facility] White Blood Count 5.6 10^3/uL N 3.5-10.8 Red Blood Count 3.81 10^6/uL Low 4.0-5.4 Hemoglobin 11.8 g/dL Low 14.0-18.0 Hematocrit 36 % Low 42-52 Mean Corpuscular Volume 94 fL N 80-94 Mean Corpuscular Hemoglobin 31 pg N 27-31 Mean Corpuscular HGB Conc 33 g/dL N 31-36 Red Cell Distribution Width 17 % High 10.5-15 Platelet Count 344 10^3/uL N 150-450 Mean Platelet Volume 8 um3 N 7.4-10.4 Abs Neutrophils 3.9 10^3/uL N 1.5-7.7 Abs Lymphocytes 1.0 10^3/uL N 1.0-4.8 Abs Monocytes 0.5 10^3/uL N 0-0.8 Abs Eosinophils 0.1 10^3/uL N 0-0.6 Abs Basophils 0.1 10^3/uL N 0-0.2 Abs Nucleated RBC 0.01 10^3/uL Granulocyte % 70.4 % N 38-83 Lymphocyte % 18.5 % Low 25-47 Monocyte % 8.3 % N 1-9 Eosinophil % 1.7 % N 0-6 Basophil % 1.1 % N 0-2 Nucleated Red Blood Cells % 0.1 Inr/Protime 06/06/2017 [facility] Inr 1.06 N 0.89-1.11 Comp Metabolic Panel 06/06/2017 [facility] Sodium 130 mmol/L Low 133-145 Potassium 4.6 mmol/L N 3.5-5.0 Chloride 97 mmol/L Low 101-111 Co2 Carbon Dioxide 23 mmol/L N 22-32 Anion Gap 10 mmol/L N 2-11 Glucose 84 mg/dL N 70-100 Blood Urea Nitrogen 12 mg/dL N 6-24 Creatinine 1.32 mg/dL High 0.67-1.17 BUN/Creatinine Ratio 9.1 N 8-20 Calcium 9.6 mg/dL N 8.6-10.3 Total Protein 7.2 g/dL N 6.4-8.9 Albumin 3.5 g/dL N 3.2-5.2 Globulin 3.7 g/dL N 2-4 Albumin/Globulin Ratio 0.9 Low 1-3 Total Bilirubin 0.60 mg/dL N 0.2-1.0 Alkaline Phosphatase 79 U/L N 34-104 Alt 14 U/L N 7-52 Ast 22 U/L N 13-39 Egfr Non- 55.0 >60 Egfr 70.7 >60 50 Laboratory test finding 06/06/2017 [facility] Acetaminophen < 15 g/mL 51 Alcohol 35 mg/dL High <10 Salicylate < 2.50 mg/dL <30 TSH (Thyroid Stim Horm) 8.16 mcIU/mL High 0.34-5.60 Manual Differential 06/06/2017 [facility] Immature Granulocytes 7 % N 0-9 Neutrophil % 53 % N 38-83 Band % 5 % N 0-8 Lymphocytes % 28 % N 25-47 Monocytes % 9 % N 0-13 Eosinophils % 2 % N 0-6 Basophil % 1 % N 0-2 Myelocytes % 2 % High 0-1 RBC Morphology Normal Normal Polychromasia 1+ Laboratory test 03/26/2017 [facility] Surgical SEE RESULT 52 finding Interface Order BELOW Comprehensive 01/08/2017 [facility] ([facility]) Sodium 135 mEq/L 134-14 Metabolic Prof 9 Potassium 4.7 mEq/L 3.6-5.5 Chloride 94 mEq/L [...] >60 ml/min/1.73m^ >=60 Complete Blood Count 01/08/2017 [facility] ([facility]) WBC 6.5 x10^3/UL 3.6-9.6 RBC 4.65 x10^6/UL 3.90-5.70 HGB 16.0 g/dL 12.1-17.2 HCT 45 % 36-50 MCV 97.0 fL 82.2-97.4 MCH 34.4 pg High 27.6-33.3 MCHC 35.3 g/dL 33.0-35.5 RDW 13.8 % High 11.6-13.7 PLT 206 x10^3/UL 150-400 MPV 7.8 fL 7.4-10.4 Gran # 4.2 x10^3/UL 1.5-7.2 Lymph# 1.8 x10^3/UL 0.7-4.9 [place]# 0.5 x10^3/UL 0.1-0.9 Gran % 63.4 % 42.2-75.2 Lymph % 28.6 % 20.5-51.1 [place]% 8.0 % 1.7-9.3 PT And PTT 01/08/2017 [facility] Inr 1.2 53, 54 [address] [place] [address] (607)- - Prothrombin Time 12.7 seconds High 9.6-11.5 aPTT 33.3 seconds High 25.0-31.3 CBC Electronic ([facility]) 12/21/2016 [facility] WBC 9.4 3.6-9.6 (607)- - RBC 4.27 3.90-5.70 Hemoglobin ([facility]/CMC/CTX) 14.6 g/dL 12.1 - 17.2 Hematocrit ([facility]/CMC/CTX) 42.1 % 36.1 - 50.3 Platelets 137 10^3/ul Low 150-400 55 Lymph% 14.9 % Low 17.0-48.0 Mixed% 6.1 Neutrophils % 79.0 Mean Corpuscular Vol 99 High 82.2-97.4 Mean Corpuscular Hemoglobin 34.1 High 27.6-33.3 Mean Corpuscular Hemo Concen 34.6 32.0-36.0 RDW 13.9 High 11.6-13.7 Mean Platelet Volume 7.8 5.5-11.0 Comprehensive Metabolic 12/21/2016 [facility] ([facility]) Sodium 132 mEq/L Low 134-149 56 Prof Potassium 4.8 mEq/L 3.6-5.5 Chloride 93 mEq/L [...] 5-34 Total Bilirubin 2.1 mg/dL High 0.2-1.3 57 GFR Non- >60 ml/min/1.73m^ >=60 GFR >60 ml/min/1.73m^ >=60 Total And 12/21/2016 [facility] ([facility]) Total Bilirubin 2.1 mg/dL High 0.2-1.3 58 Direct Bili Direct Bilirubn 0.9 mg/dL High 0.0-0.6 Indirect Bilirubin 1.20 mg/dL High 0.10-1.00 PT And PTT 12/21/2016 [facility] Inr 1.4 59, [address] [place] [address] (607)- - Prothrombin Time 14.6 seconds High 9.6-11.5 aPTT 40.2 seconds High 25.0-31.3 Comprehensive Metabolic 12/01/2016 [facility] ([facility]) Sodium 136 mEq/L 134-149 Prof Potassium 4.8 mEq/L 3.6-5.5 Chloride 94 mEq/L [...] >60 ml/min/1.73m^ >=60 Laboratory test finding 12/01/2016 Diego France ([facility]) TSH 3.77 mIU/L 0.50-6.00 Free T4 0.84 ng/dL 0.75-1.54 PSA 4.7 ng/mL High 0.0-4.0 61 Complete Blood Count 12/01/2016 Diego France (a) WBC 6.1 x10^3/UL 3.6-9.6 RBC 4.58 x10^6/UL 3.90-5.70 HGB 15.4 g/dL 12.1-17.2 HCT 45 % 36-50 MCV 98.0 fL High 82.2-97.4 MCH 33.6 pg High 27.6-33.3 MCHC 34.4 g/dL 33.0-35.5 RDW 14.6 % High 11.6-13.7 PLT 193 x10^3/UL 150-400 MPV 6.7 fL Low 7.4-10.4 Gran # 4.2 x10^3/UL 1.5-7.2 Lymph# 1.4 x10^3/UL 0.7-4.9 [place]# 0.5 x10^3/UL 0.1-0.9 Gran % 67.4 % 42.2-75.2 Lymph % 22.9 % 20.5-51.1 [place]% 9.7 % High 1.7-9.3 Laboratory test 11/06/2016 [facility] Levetiracetam 29.5 ug/mL 10.0-40.0 62 finding [address] [facility] [place] [place] [address] (607)- - Digoxin, Serum 1.5 ng/mL High 0.5-0.9 63 Comprehensive Metabolic 11/06/2016 Diego France ([facility]) Sodium 130 mEq/L Low 134-149 64 Prof Potassium 5.5 mEq/L 3.6-5.5 Chloride 94 mEq/L [...] GFR >60 ml/min/1.73m^ >=60 Lipid Profile 11/06/2016 Diego France (a) Cholesterol 248 mg/dL High 120-200 Triglycerides 73 mg/dL 30-200 HDL Cholesterol 128 mg/dL High 30-70 LDL (Calculated) 105 CALC 0-129 VLDL Cholesterol 15 mg/dL 0-50 HDL Risk Factor 1.9 CALC 0.0-4.4 Complete Blood Count 11/06/2016 Diego France (a) WBC 7.4 x10^3/UL 3.6-9.6 RBC 5.08 x10^6/UL 3.90-5.70 HGB 16.9 g/dL 12.1-17.2 HCT 49 % 36-50 MCV 96.0 fL 82.2-97.4 MCH 33.3 pg 27.6-33.3 MCHC 34.7 g/dL 33.0-35.5 RDW 14.3 % High 11.6-13.7 PLT 221 x10^3/UL 150-400 MPV 7.3 fL Low 7.4-10.4 Gran # 4.8 x10^3/UL 1.5-7.2 Lymph# 2.1 x10^3/UL 0.7-4.9 [place]# 0.5 x10^3/UL 0.1-0.9 Gran % 62.6 % 42.2-75.2 Lymph % 29.7 % 20.5-51.1 [place]% 7.7 % 1.7-9.3 Laboratory test 11/06/2016 Diego France (a) Free T4 1.32 ng/dL 0.75- 1.54 finding TSH 8.94 mIU/L High 0.50-6.00 65 PSA 5.8 ng/mL High 0.0-4.0 66 Laboratory test 10/15/2016 [facility] Lactic Acid 2.0 mmol/L N 0.5-2.0 67 finding Laboratory test 10/15/2016 [facility] Levetiracetam (Keppra) 12.8 g/mL N 68 finding Digitoxin Level 10/15/2016 [facility] Digitoxin None Detected N 10 - 30 ng/mL Digitoxin Reporting Limit 5.0 ng/mL N 69 Laboratory test 07/05/2016 [facility] Digoxin, Serum 1.4 ng/mL 0.9-2.0 70 finding [address] [place] [address] (607)- - Laboratory test 06/26/2016 [facility] Digitoxin <3.0 Low 10 - 25 [address] ng/[place] [address] (607)- - Laboratory test 06/26/2016 [facility] Hemoglobin A1c 5.1 % % 4.1- 5.7 finding (607)- - ([facility]) Laboratory test 06/19/2016 [facility] Point of Care 112 mg/dL High 74-106 72 finding Glucose Comprehensive 06/14/2016 Diego France (a) Sodium 132 mEq/L Low 134- 149 73 Metabolic Prof Potassium 5.3 mEq/L 3.6-5.5 Chloride 94 mEq/L 94-112 Carbon Dioxide 28 mEq/L 21-32 Glucose 117 mg/dL High 70-105 74 BUN 11 mg/dL 6-26 Creatinine 0.8 mg/dL [...] GFR >60 ml/min/1.73m^ >=60 Lipid Profile 06/14/2016 Diego France ([facility]) Cholesterol 203 mg/dL High 120-200 Triglycerides 42 mg/dL 30-200 HDL Cholesterol 92 mg/dL High 30-70 LDL (Calculated) 103 CALC 0-129 VLDL Cholesterol 8 mg/dL 0-50 HDL Risk Factor 2.2 CALC 0.0-4.4 Laboratory test finding 06/14/2016 Diego France ([facility]) CK 113 U/L 38- 174 Complete Blood Count 06/14/2016 Diego France (a) WBC 6.6 x10^3/UL 3.6-9.6 RBC 4.60 x10^6/UL 3.90-5.70 HGB 14.0 g/dL 12.1-17.2 HCT 41 % 36-50 MCV 89.0 fL 82.2-97.4 MCH 30.5 pg 27.6-33.3 MCHC 34.2 g/dL 33.0-35.5 RDW 17.5 % High 11.6-13.7 PLT 190 x10^3/UL 150-400 MPV 6.7 fL Low 7.4-10.4 Gran # 4.4 x10^3/UL 1.5-7.2 Lymph# 1.7 x10^3/UL 0.7-4.9 [place]# 0.5 x10^3/UL 0.1-0.9 Gran % 65.4 % 42.2-75.2 Lymph % 26.8 % 20.5-51.1 [place]% 7.8 % 1.7-9.3 Laboratory test finding 06/14/2016 Diego France ([facility]) TSH 1.93 mIU/L 0.50-6.00 75 Free T4 0.80 ng/dL 0.75-1.54 Laboratory test 03/21/2016 [facility] Inr (a) 1.7 Low 2.0-3.0 finding (607)- - Comprehensive 03/21/2016 Diego France (a) Sodium 127 mEq/L Low 134- 149 76 Metabolic Prof Potassium 5.6 mEq/L High 3.6-5.5 77 Chloride 94 mEq/L 94-112 Carbon Dioxide 25 mEq/L 21-32 Glucose 88 mg/dL 70-105 BUN 11 mg/dL 6-26 Creatinine 0.8 mg/dL 0.6-1.4 BUN/Creat Ratio 13.8 CALC 8.0-36.0 Calcium 8.7 mg/dL 8.6-10.2 Total Protein 6.9 g/dL 6.4-8.3 Albumin 3.9 g/dL 3.8-5.5 Globulin 3.0 g/dL 2.0-4.8 A/G Ratio 1.3 CALC 0.6-2.3 Alk. Phosphatase 97 U/L High 22-95 78 Alt (SGPT) 15 U/L 7-35 Ast (Sgot) 20 U/L 5-34 Total Bilirubin 0.4 mg/dL 0.2-1.3 GFR Non- >60 ml/min/1.73m^ >=60 GFR >60 ml/min/1.73m^ >=60 Lipid Profile 03/21/2016 Diego France ([facility]) Cholesterol 181 mg/dL 120- 200 Triglycerides 54 mg/dL 30-200 HDL Cholesterol 52 mg/dL 30-70 LDL (Calculated) 118 CALC 0-129 VLDL Cholesterol 11 mg/dL 0-50 HDL Risk Factor 3.5 CALC 0.0-4.4 Laboratory test 03/21/2016 Cortez Flora ([facility]) Magnesium, Serum 2.0 mEq/L 1.2-2.1 finding TSH 2.47 mIU/L 0.50-6.00 Complete Blood Count 03/21/2016 Cortez Flora ([facility]) WBC 7.8 x10^3/UL 3.6-9.6 RBC 4.57 x10^6/UL 3.90-5.70 HGB 14.2 g/dL 12.1-17.2 HCT 41 % 36-50 MCV 90.0 fL 82.2-97.4 MCH 31.1 pg 27.6-33.3 MCHC 34.5 g/dL 33.0-35.5 RDW 14.7 % High 11.6-13.7 PLT 307 x10^3/UL 150-400 MPV 7.1 fL Low 7.4-10.4 Gran # 5.1 x10^3/UL 1.5-7.2 Lymph# 2.0 x10^3/UL 0.7-4.9 [place]# 0.7 x10^3/UL 0.1-0.9 Gran % 64.0 % 42.2-75.2 Lymph % 26.1 % 20.5-51.1 [place]% 9.9 % High 1.7-9.3 Laboratory test 03/07/2016 [facility] (a) 1.5 Low 2.0-3.0 finding (607)- - Laboratory test 03/01/2016 [facility] Medicine Inr (a) 3.2 High 2.0-3.0 finding (607)- - Laboratory test 02/24/2016 [facility] Potassium Redraw 4.8 mmol/L N 3.5-5.0 finding Ast Redraw 23 U/L N 13-39 Laboratory test 02/16/2016 [facility] Inr (Fma) 2.5 2.0-3.0 finding (607)- - Laboratory test 02/10/2016 [facility] Inr (Fma) 1.3 Low 2.0-3.0 finding (607)- - Laboratory test 02/01/2016 [facility] Troponin I 0.02 ng/mL N <0.03 79 finding CBC Auto Diff 02/01/2016 [facility] White Blood 5.5 N 3.5-10.8 Count 10^3/uL Red Blood Count 4.07 10^6/uL N 4.0-5.4 Hemoglobin 12.2 g/dL Low 14.0-18.0 Hematocrit 37 % Low 42-52 Mean Corpuscular Volume 90 fL N 80-94 Mean Corpuscular Hemoglobin 30 pg N 27-31 Mean Corpuscular HGB Conc 34 g/dL N 31-36 Red Cell Distribution Width 15 % N 10.5-15 Platelet Count 218 10^3/uL N 150-450 Mean Platelet Volume 8 um3 N 7.4-10.4 Abs Neutrophils 2.8 10^3/uL N 1.5-7.7 Abs Lymphocytes 1.6 10^3/uL N 1.0-4.8 Abs Monocytes 0.7 10^3/uL N 0-0.8 Abs Eosinophils 0.3 10^3/uL N 0-0.6 Abs Basophils 0.1 10^3/uL N 0-0.2 Abs Nucleated RBC 0 10^3/uL N Granulocyte % 51.6 % N 38-83 Lymphocyte % 29.2 % N 25-47 Monocyte % 11.9 % High 1-9 Eosinophil % 6.3 % High 0-6 Basophil % 1.0 % N 0-2 Nucleated Red Blood Cells % 0 N Inr/Protime 02/01/2016 [facility] Inr 1.60 High 0.89-1.11 Laboratory test 02/01/2016 [facility] Partial Thrombo 37.7 seconds High 26.0- 36.3 finding Time PTT Comp Metabolic Panel 02/01/2016 [facility] Sodium 129 mmol/L Low 133-145 Potassium 4.0 mmol/L N 3.5-5.0 Chloride 96 mmol/L Low 101-111 Co2 Carbon Dioxide 25 mmol/L N 22-32 Anion Gap 8 mmol/L N 2-11 Glucose 112 mg/dL High 70-100 Blood Urea Nitrogen 6 mg/dL N 6-24 Creatinine 1.01 mg/dL N 0.67-1.17 BUN/Creatinine Ratio 5.9 Low 8-20 Calcium 9.1 mg/dL N 8.6-10.3 Total Protein 7.7 g/dL N 6.4-8.9 Albumin 3.9 g/dL N 3.2-5.2 Globulin 3.8 g/dL N 2-4 Albumin/Globulin Ratio 1.0 N 1-3 Total Bilirubin 0.70 mg/dL N 0.2-1.0 Alkaline Phosphatase 103 U/L N 34-104 Alt 12 U/L N 7-52 Ast 17 U/L N 13-39 Egfr Non- 75.4 N >60 Egfr 96.9 N >60 80 Laboratory test finding 02/01/2016 [facility] Troponin I 0.03 ng/mL High <0.03 81 Lactic Acid 2.2 mmol/L High 0.5-2.0 82 Magnesium 2.0 mg/dL N 1.9-2.7 Digoxin 0.9 ng/ml N 0.8-2.0 Valproic Acid (Depakene) 61.0 g/mL N 50-100 TSH (Thyroid Stim Horm) 4.34 mcIU/mL N 0.34-5.60 Levetiracetam (Keppra) 6.0 g/mL Abnormal 83 Laboratory test 01/31/2016 [facility] Medicine Inr (Fma) 1.7 Low 2.0-3.0 finding (607)- - Laboratory test 01/24/2016 [facility] Medicine Inr (Fma) 1.9 Low 2.0-3.0 finding (607)- - Laboratory test 01/19/2016 [facility] Medicine Inr (Fma) 5.7 High 2.0-3.0 finding (607)- - Panel [id number] Nys 03/03/2015 [facility] HIV 1/O/2 <1.00 <1.00 84, 85 PT Only [address] [place] [address] Value (607)- - HIV 1/O/2 Abs, Qual Non Reactive Non Reactive Laboratory test 03/03/2015 [facility] HCV Antibody <0.1 s/coratio 0.0-0.9 86 finding [address] [place] [address] (607)- - Lipid Profile 01/21/2015 [facility] Flora (a) Cholesterol 183 mg/dL 120- 200 Triglycerides 56 mg/dL 30-200 HDL Cholesterol 54 mg/dL 30-70 LDL (Calculated) 118 CALC 0-129 VLDL Cholesterol 11 mg/dL 0-50 HDL Risk Factor 3.4 CALC 0.0-4.4 Comprehensive Metabolic 01/21/2015 Diego France ([facility]) Sodium 129 mEq/L Low 134-149 87 Prof Potassium 4.6 mEq/L 3.6-5.5 Chloride 95 mEq/L [...] 5-34 Total Bilirubin 0.5 mg/dL 0.2-1.3 1 Critical Result LACT:3.2 Called to CLEM at: 15:00:04 by:[id number] Read back by:CLEM [facility] Severe Sepsis and Septic Shock Management Bundle Measure requires all lactic acids initially measuring >2.0 mmol/L be repeated. 2 Troponin-I testing on Plasma Separator Tubes (PST) has a known false positive rate of 0.20-0.40%. All positive troponins reflex immediate secondary confirmatory testing. 3 Because ethnic data is not always readily [...] 15-29 5 Kidney failure <15 (or dialysis) 4 REFERENCE VALUE 12.0 - 46.0 ADDITIONAL INFORMATION This test was developed and its performance characteristics determined by [facility] in a manner consistent with CLIA requirements. This test has not been cleared or approved by the U.S. Food and Drug Administration. Test Performed by: [facility] [address] [place] [address] 5 SEE RESULT BELOW Name: GILDA CORTEZ : [address]: Tony Bassett MD Acct: [id number] Unit: [id number] AGE: 63 Location: ED Re06/18/18 SEX: M Status: REG ER SPEC: [id number] SIENA: 06/18/[address] [facility] [address]: Tony Bassett MD REQ: [id number] RECD: 06/18/18 STATUS: MICHAEL GANT DR: Autumn Urbina MD _ SOURCE: URINE SPDESC: ORDERED: Urine Culture Procedure Result Reported Site Urine Culture Final 06/19/18- 1606 ML No growth of clinically significant organisms * ML - Main Lab . END OF REPORT DEPARTMENT OF PATHOLOGY, [address] [place] [address] Alirio Hawkins M.D. Director [facility] # [id number] 6 Critical Result LACT:7.6 Called to AWILDA at: 14:55:47 by:[id number] Read back by:AWILDA DAHL Severe Sepsis and Septic Shock Management Bundle Measure requires all lactic acids initially measuring >2.0 mmol/L be repeated. 7 Because ethnic data is not always readily [...] 15-29 5 Kidney failure <15 (or dialysis) 8 AM 8.7-22.4 PM <10 9 Presumptive Positive Presumptive positive results are unconfirmed. 10 The urine specimen was tested at the listed cutoffs: Drug class test level (ng/mL) Amphetamines 500 Barbiturates 200 Benzodiazepine metabolites 200 Cocaine metabolites 150 Cannabinoids 50 Opiates 300 Pcp 25 Specimen was received without chain of custody. Results should be used for medical purposes only. 11 Therapeutic concentration: <50 ug/mL Toxic concentration: >120 ug/mL 12 Because ethnic data is not always readily [...] 15-29 5 Kidney failure <15 (or dialysis) 13 Critical Result NA:117 Called to [id number] at: 11:22:44 by:[id number] Read back by:[id number] 14 Because ethnic data is not always [...] 5 Kidney failure <15 (or dialysis) 15 MIS Severe Sepsis and Septic Shock Management Bundle Measure requires all lactic acids initially measuring >2.0 mmol/L be repeated. 16 REFERENCE VALUE 12.0 - 46.0 ADDITIONAL INFORMATION This test was developed and its performance characteristics determined by [facility] in a manner consistent with CLIA requirements. This test has not been cleared or approved by the U.S. Food and Drug Administration. Test Performed by: [facility] [place] [id number] [place] [address] 17 Presumptive Positive Presumptive positive results are unconfirmed. 18 The urine specimen was tested at the listed cutoffs: Drug class test level (ng/mL) Amphetamines 500 Barbiturates 200 Benzodiazepine metabolites 200 Cocaine metabolites 150 Cannabinoids 50 Opiates 300 Pcp 25 Specimen was received without chain of custody. Results should be used for medical purposes only. 19 Because ethnic data is not always [...] 5 Kidney failure <15 (or dialysis) 20 Copy Result to: AUTUMN URBINA ([id number]) 21 Desirable: <150 Borderline High: 150-199 High: 200-499 Very High: >500 22 Desirable: <200 Borderline High: 200-239 High: >239 23 Low: <40 Desirable: 40-60 High: >60 24 Desirable: <100 Near Optimal: 100-129 Borderline High: 130-159 High: 160-189 Very High: >189 25 Therapeutic concentration: <50 ug/mL Toxic concentration: >120 ug/mL 26 Because ethnic data is not always readily [...] 15-29 5 Kidney failure <15 (or dialysis) 27 Presumptive Positive Presumptive positive results are unconfirmed. 28 The urine specimen was tested at the listed cutoffs: Drug class test level (ng/mL) Amphetamines 500 Barbiturates 200 Benzodiazepine metabolites 200 Cocaine metabolites 150 Cannabinoids 50 Opiates 300 Pcp 25 Specimen was received without chain of custody. Results should be used for medical purposes only. 29 1 sst 30 Concentrations above 2.0 ng/mL are generally considered toxic. Some overlap of toxic and non-toxic values have been reported. Detection Limit=0.4 ng/mL Therapeutic range is derived from 2013 ACCF/AHA Guidelines for the Management of Heart Failure. 31 REFERENCE VALUE 12.0 - 46.0 ADDITIONAL INFORMATION This test was developed and its performance characteristics determined by [facility] in a manner consistent with CLIA requirements. This test has not been cleared or approved by the U.S. Food and Drug Administration. Test Performed by: [facility] [place] [id number] [place] [address] 32 Because ethnic data is not always readily [...] 15-29 5 Kidney failure <15 (or dialysis) 33 Because ethnic data is not always [...] 5 Kidney failure <15 (or dialysis) 34 Because ethnic data is not always readily [...] 15-29 5 Kidney failure <15 (or dialysis) 35 Critical Result LACT:5.7 Called to [id number] at: 13:57:34 by:[id number] Read back by:[id number] [facility] Severe Sepsis and Septic Shock Management Bundle Measure requires all lactic acids initially measuring >2.0 mmol/L be repeated. [facility] Severe Sepsis and Septic Shock Management Bundle Measure requires all lactic acids initially measuring >2.0 mmol/L be repeated. 36 RESULTS VERIFIED BY REPEAT ANALYSIS 37 NON-FASTING 38 FROZEN EDTA PLASMA FROM [facility] 39 Presumptive Positive Presumptive positive results are unconfirmed. 40 Presumptive Positive Presumptive positive results are unconfirmed. 41 The urine specimen was tested at the listed cutoffs: Drug class test level (ng/mL) Amphetamines 500 Barbiturates 200 Benzodiazepine metabolites 200 Cocaine metabolites 150 Cannabinoids 50 Opiates 300 Pcp 25 Specimen was received without chain of custody. Results should be used for medical purposes only. 42 Acute inflammation: >10.00 43 Because ethnic data is not always readily [...] 15-29 5 Kidney failure <15 (or dialysis) 44 [facility] Severe Sepsis and Septic Shock Management Bundle Measure requires all lactic acids initially measuring >2.0 mmol/L be repeated. 45 Please note the change in INR reference range effective 17. 46 Presumptive Positive Presumptive positive results are unconfirmed. 47 Presumptive Positive Presumptive positive results are unconfirmed. 48 The urine specimen was tested at the listed cutoffs: Drug class test level (ng/mL) Amphetamines 500 Barbiturates 200 Benzodiazepine metabolites 200 Cocaine metabolites 150 Cannabinoids 50 Opiates 300 Pcp 25 Specimen was received without chain of custody. Results should be used for medical purposes only. 49 SEE RESULT BELOW Name: GILDA CORTEZ : [address]: Aung Alexander MD Acct: [id number] Unit: [id number] AGE: 62 Location: ED Re06/06/17 SEX: M Status: DEP ER SPEC: [id number] SIENA: 06/07/17-[address] [facility] [address]: Aung Alexander MD REQ: [id number] RECD: 06/07/17-1250 STATUS: MICHAEL GANT DR: Kellee Bangura MD _ SOURCE: URINE SPDESC: ORDERED: Urine Culture QUERIES: Urine Source: Random Procedure Result Reported Site Urine Culture Final 06/08/17- 1337 ML No Growth (<1,000 CFU/mL) * ML - MAIN LAB ([facility]) . END OF REPORT * ML=Testing performed at Main Lab DEPARTMENT OF PATHOLOGY, [address] [place] [address] Alirio Hawkins M.D. Director [facility] # [id number] 50 Because ethnic data is not always readily [...] 15-29 5 Kidney failure <15 (or dialysis) 51 Therapeutic concentration: <50 ug/mL Toxic concentration: >120 ug/mL 52 SEE RESULT BELOW Name: YENIGILDA Araceli : [address]: Henry Nunez MD Acct: [id number] Unit: [id number] AGE: 62 Location: ENDO Re03/26/17 SEX: M Status: DEP REF SPEC: [id number] SIENA: 03/26/17- SUBM DR: Henry Nunez MD REQ: [id number] RECD: 03/26/172658 STATUS: BERENICE GANT DR: Kellee Bangura MD [...] performed at Main Lab DEPARTMENT OF PATHOLOGY, [address] [place] [address] Alirio Hawkins M.D. Director [facility] # [id number] 53 2 light blue tops FILLED T O THE LINE 54 INTERNATIONAL NORMALIZED RATIO(INR) INDICATIONS INR RANGE PATIENTS [...] WITH AN UNACCEPTABLY HIGH RISK OF BLEEDING. 55 result rechecked 56 RESULTS VERIFIED BY REPEAT ANALYSIS 57 RESULTS VERIFIED BY REPEAT ANALYSIS 58 RESULTS VERIFIED BY REPEAT ANALYSIS 59 2 light blue filled to the line 60 INTERNATIONAL NORMALIZED RATIO(INR) INDICATIONS INR RANGE PATIENTS [...] WITH AN UNACCEPTABLY HIGH RISK OF BLEEDING. 61 RESULTS VERIFIED BY REPEAT ANALYSIS 62 1 serum pour off from red top 63 Concentrations above 2.0 ng/mL are generally considered toxic. Some overlap of toxic and non-toxic values have been reported. Detection Limit=0.4 ng/mL Therapeutic range is derived from 2013 ACCF/AHA Guidelines for the Management of Heart Failure. 64 RESULTS VERIFIED BY REPEAT ANALYSIS 65 RESULTS VERIFIED BY REPEAT ANALYSIS 66 RESULTS VERIFIED BY REPEAT ANALYSIS 67 [facility] Severe Sepsis and Septic Shock Management Bundle Measure requires all lactic acids initially measuring >2.0 mmol/L be repeated. 68 REFERENCE VALUE 12.0 - 46.0 ADDITIONAL INFORMATION This test was developed and its performance characteristics determined by [facility] in a manner consistent with CLIA requirements. This test has not been cleared or approved by the U.S. Food and Drug Administration. Test Performed by: [facility] - [address] [address] Test Performed by: [facility] [address] [place] [address] [address] [place] [address] 70 Concentrations above 2.0 ng/mL are generally considered toxic. Some overlap of toxic and non-toxic values have been reported. Detection Limit=0.4 ng/mL 71 1pour off serum from red t op 72 [employer] Process Operator: [id number] JERMAINE ROMERO 73 RESULTS VERIFIED BY REPEAT ANALYSIS 74 RESULTS VERIFIED BY REPEAT ANALYSIS 75 FASTING 76 consistent w/ previous results 77 RESULTS VERIFIED BY REPEAT ANALYSIS interpret with caution remberto up in syringe 78 RESULTS VERIFIED BY REPEAT ANALYSIS 79 Reference Range and Interpretation: TnI (ng/mL) Interpretation Less Than 0.03 ng/mL Not supportive of diagnosis of AL 0.03 - 0.50 ng/mL Indeterminate: suggest serial studies if clinically indicated. Greater than 0.5 ng/mL Consistent with diagnosis of AL 80 Because ethnic data is not always readily [...] 15-29 5 Kidney failure <15 (or dialysis) 81 Reference Range and Interpretation: TnI (ng/mL) Interpretation Less Than 0.03 ng/mL Not supportive of diagnosis of AL 0.03 - 0.50 ng/mL Indeterminate: suggest serial studies if clinically indicated. Greater than 0.5 ng/mL Consistent with diagnosis of AL 82 Critical Result LACT:2.2 Called to [id number] at: 02:34:27 by:[id number] Read back by:FERNANDEZ [facility] Severe Sepsis and Septic Shock Management Bundle Measure requires all lactic acids initially measuring >2.0 mmol/L be repeated. 83 REFERENCE VALUE 12.0 - 46.0 Test Performed by: [place] [address] [employer]rel Roller Operator: Ivan Frost II, M.D., Ph.D. 84 2SST 85 Index Value: Specimen reactivity relative to the negative cutoff. 86 Negative: < 0.8 Indeterminate: 0.8 - 0.9 Positive: > 0.9 In order to reduce the incidence of a false positive result, the CDC recommends that all s/co ratios between 1.0 and 10.9 be confirmed by a more specific supplemental or PCR testing. [facility] offers HCV Ab w/Reflex to Verification test #[id number]. 87 RESULTS VERIFIED BY REPEAT ANALYSIS Procedures Date Code Description Status 03/26/2017 [id number] Colonoscopy Completed 03/19/2017 [id number] Colonoscopy Completed 04/18/2016 70172 Pulse Oximetry Completed 04/18/2016 49984 Electrocardiogram Complete Completed 03/07/2016 47001 Finger Or Heel Stick Completed 03/01/2016 21642 Finger Or Heel Stick Completed 02/16/2016 43412 Finger Or Heel Stick Completed 02/10/2016 39123 Finger Or Heel Stick Completed 01/31/2016 55938 Finger Or Heel Stick Completed 01/24/2016 49504 Finger Or Heel Stick Completed 01/19/2016 46876 Finger Or Heel Stick Completed Encounters Type Date Location Provider Dx Diagnosis Office Visit 06/21/2018 Main Office Autumn Schafer E87.1 Hypo-osmolality and 3:00p MD Debbie hyponatremia F41.1 Generalized anxiety disorder Office Visit 05/17/2018 4:40p Main Office Autumn Schafer I73.9 Peripheral MD Debbie vascular disease, unspecified I25.10 Athscl heart disease of [place] coronary artery w/o ang pctrs Office Visit 04/26/2018 4:40p Main Office Autumn Schafer S01.01xD Laceration MD Debbie without foreign body of scalp, subs encntr Z48.02 Encounter for removal of sutures Office Visit 04/20/2018 9:20a Main Office Autumn Schafer S01.01xD Laceration MD Debbie without foreign body of scalp, subs encntr G40.89 Other seizures F31.0 Bipolar disorder, current episode hypomanic W10.9xxD Fall (on) (from) unspecified stairs and steps, subs encntr Office Visit 04/05/2018 3:00p Main Office Autumn Schafer F31.0 Bipolar disorderDebbie MD current episode hypomanic I73.9 Peripheral vascular disease, unspecified G40.309 Gen idiopathic epilepsy, not intractable, w/o stat epi Z23 Encounter for immunization Office Visit 01/30/2018 4:40p Main Office Autumn Schafer S60.222A Contusion of MD Debbie left hand, initial encounter W01.198A Fall same lev from slip/trip w strike agnst oth object, init Office Visit 01/16/2018 4:10p Main Office Autumn Schafer F31.0 Bipolar Debbie claudio MD current episode hypomanic F41.1 Generalized anxiety disorder Office Visit 12/26/2017 1:00p Main Office Autumn Schafer F41.1 Van Urbina MD anxiety disorder E03.9 Hypothyroidism, unspecified Office Visit 11/21/2017 12:40p Main Office Autumn Schafer F41.1 Van Urbina MD anxiety disorder G40.89 Other seizures Office Visit 11/02/2017 2:40p Main Office Autumn Schafer F41.1 Generalized MD Debbie anxiety disorder Office Visit 10/19/2017 3:50p Main Office Autumn Schafer F31.0 Bipolar disorderDebbie MD current episode hypomanic G40.89 Other seizures F17.210 Nicotine dependence, cigarettes, uncomplicated Office Visit 09/20/2017 4:40p Main Office Autumn Schafer F31.0 Bipolar disorderDebbie MD current episode hypomanic G40.89 Other seizures I73.9 Peripheral vascular disease, unspecified F17.210 Nicotine dependence, cigarettes, uncomplicated G47.09 Other insomnia Office Visit 08/31/2017 9:50a Main Office Autumn Schafer R00.0 Tachycardia, MD Debbie unspecified G40.309 Gen idiopathic epilepsy, not intractable, w/o stat epi F20.89 Other schizophrenia R06.00 Dyspnea, unspecified Office Visit 08/22/2017 2:50p Main Office Autumn Schafer G40.89 Other seizures MD Debbie Office Visit 07/25/2017 12:00p Main Office Autumn Schafer F31.0 Bipolar MD Debbie disorder, current episode hypomanic E87.1 Hypo-osmolality and hyponatremia Office Visit 07/04/2017 2:00p Main Office Autumn Schafer G40.89 Other seizures MD Debbie E87.1 Hypo-osmolality and hyponatremia R41.82 Altered mental status, unspecified Office Visit 06/28/2017 11:00a Main Office Kellee Bangura, F31.9 Bipolar disorder, M.D. unspecified I73.9 Peripheral vascular disease, unspecified I10 Essential (primary) hypertension I48.0 Paroxysmal atrial fibrillation Office Visit 06/11/2017 4:30p Main Office Kellee Bangura, F31.9 Bipolar disorder, M.D. unspecified I73.9 Peripheral vascular disease, unspecified I10 Essential (primary) hypertension F10.20 Alcohol dependence, uncomplicated G40.309 Gen idiopathic epilepsy, not intractable, w/o stat epi I48.0 Paroxysmal atrial fibrillation J44.9 Chronic obstructive pulmonary disease, unspecified S00.03xA Contusion of scalp, initial encounter Z48.02 Encounter for removal of sutures Office Visit 05/07/2017 5:00p Main Office Kellee Bangura, F31.9 Bipolar disorder, M.D. 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 pulmonary disease, unspecified I10 Essential (primary) hypertension I25.10 Athscl heart disease of [place] coronary artery w/o ang pctrs F31.9 Bipolar disorder, unspecified G40.309 Gen idiopathic epilepsy, not intractable, w/o stat epi Z12.11 Encounter for screening for malignant neoplasm of colon Office Visit 05/24/2016 2:45p Main Office Eun Mcwilliams, R49.0 Dysphonia Afnp-C Office Visit 04/18/2016 2:20p Main Office Kellee Bangura M.D. R07.89 Other chest pain I25.10 Athscl heart disease of [place] coronary artery w/o ang pctrs J44.9 Chronic obstructive pulmonary disease, unspecified F31.9 Bipolar disorder, unspecified Office Visit 03/07/2016 3:40p Main Office Kellee Bangura J44.9 Chronic obstructive M.D. pulmonary disease, unspecified F31.9 Bipolar disorder, unspecified I25.10 Athscl heart disease of [place] coronary artery w/o ang pctrs I48.0 Paroxysmal atrial fibrillation G40.309 Gen idiopathic epilepsy, not intractable, w/o stat epi F10.20 Alcohol dependence, uncomplicated Z12.11 Encounter for screening for malignant neoplasm of colon E87.1 Hypo-osmolality and hyponatremia Z95.2 Presence of prosthetic heart valve F17.210 Nicotine dependence, cigarettes, uncomplicated Z71.6 Tobacco abuse counseling Z79.01 [facility] (current) use of anticoagulants Office Visit 01/19/2016 1:40p Main Office Autumn Keating Z79.01 [facility] ( current) Radames Lou use of anticoagulants I48.0 Paroxysmal atrial fibrillation I34.0 Nonrheumatic mitral (valve) insufficiency Office Visit 12/21/2015 10:30a Main Office Eun Mcwilliams, R21 Rash and other Afnp-C nonspecific skin eruption Office Visit 07/14/2015 10:20a Main Office Avtar Ring M.D. J44.9 Chronic obstructive pulmonary disease, unspecified I25.10 Athscl heart disease of [place] coronary artery w/o ang pctrs F17.210 Nicotine dependence, cigarettes, uncomplicated F31.9 Bipolar disorder, unspecified Office Visit 03/03/2015 3:30p Main Office Avtar Ring M.D. 496 COPD Airway Obstruction Chronic Not Class Elsewhere V74.5 Screening Examination Venereal Disease Office Visit 02/17/2015 2:20p Main Office Avtar Ring M.D. 786.05 Shortness Of Breath 305.1 Tobacco Use Disorder 110.4 Dermatophytosis Foot Office Visit 01/20/2015 1:40p Main Office Avtar Ring M.D. 424.1 Aortic Valve Disorder 345.10 Epilepsy Convulsive W/O Intractable 443.9 Peripheral Vascular Disease Unspec 296.80 Bipolar Disorder NOS 303.90 Alcohol Dependence Other & Unspec Office Visit 12/02/2014 10:10a Main Office Avtar Ring M.D. 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 295.80 Schizophrenia Other Spec Types Unspec 424.1 Aortic Valve Disorder 496 COPD Airway Obstruction Chronic Not Class Elsewhere Plan of Treatment Future Appointment(s):10/16/2018 12:00 pm - Autumn Urbina MD at Main [id number]/22/2018 - Autumn Urbina MDE87.1 Hypo-osmolality and hyponatremiaNew Medication:Tamsulosin HCL 0.4 mg - 1 by mouth every dayComments: lower the metoprolol dose to 100mg daily.Adding Flomax for urine flow.F41.1 Generalized anxiety ophlndkjK53.89 Other jttooxfsB17.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[place] coronary artery without angina pectorisAllComments:~B_~U_ Medication Management~b_~u_ Patient Understands medications he's taking? Yes No Are there Barriers to Adherence? Yes No Has the patient been asked about herbal supplements and therapies, and OTC meds? Yes No
== END | disposition left against medical advice (07) ==
LOC: ED 18:31
DX: R07.89 Other chest pain (principal); Z53.21 Procedure and treatment not carried out due to patient leaving prior to being seen by health care provider

== ENCOUNTER 2018-09-24 18:04 | Observation (INO) | payer MEDICARE, MEDICAID ==
--- NOTE | 2018-09-24 19:30 | ED ---
Lower Extremity - HPI Summary HPI Summary: This patient is a 63 year old M presenting to [facility] with a chief complaint of bilat lower leg pain since 2 years ago. The pain has gotten progressively worse. He knows that he needs a vascular bypass but his surgeon wont do it until he quits smoking. Patient has yet to quit smoking. The patient rates the pain 10/10 in severity. Patient reports neuropathy in his feet bilaterally and pain all the way up to his waist. Patient does not take any medications for pain. He says that he can only walk short distances. Patient had one can of beer tonight and reports that he uses liquor to fall asleep at night. - History of Current Complaint Chief Complaint: EDExtremityLower Stated Complaint: PAIN IN THE TORSO PER PT Time Seen by Provider: 09/24/18 19:18 Hx Obtained From: Patient Onset of Pain: Days - Since 2 years ago and progressively getting worse Onset/Duration: Still Present - Pain started 2 years ago and getting progressively worse Severity Currently: Severe Pain Intensity: 10 Pain Scale Used: 0-10 Numeric Timing: Constant Location: Is Diffuse - Lower extremity and "up to waist" Associated Signs And Symptoms: Positive: Other - Neuropathy in feet bilaterally and pain all the way up to his waist. - Allergies/Home Medications Allergies/Adverse Reactions: Allergies Allergy/AdvReac Type Severity Reaction Status Date / Time No Known Allergies Allergy Verified 06/18/18 14:24 PMH/Surg Hx/FS Hx/Imm Hx Endocrine/Hematology History: Reports: Hx Anticoagulant Therapy Denies: Hx Diabetes, Hx Thyroid Disease Cardiovascular History: Reports: Hx Hypertension, Hx Pacemaker/ICD - [employer] -GUIANDANT - NOT MR SAFE/CONDITIONAL, Hx Peripheral Vascular Disease , Hx Valvular Heart Disease - Recent valve replacement surgery, Other Cardiovascular Problems/Disorders - Hx Atrial Fibrillation and was treatment with Warfarin which has been d/c'd Respiratory History: Reports: Hx Chronic Bronchitis, Hx Chronic Obstructive Pulmonary Disease (COPD), Other Respiratory Problems/Disorders - poss aspiration Denies: Hx Asthma History: Reports: Other Problems/Disorders - History of SIADH Denies: Hx Renal Disease Musculoskeletal History: Reports: Other Musculoskeletal History - peripheral neuropathy Denies: Hx Arthritis, Hx Osteoporosis Sensory History: Reports: Hx Cataracts, Hx Contacts or Glasses Denies: Hx Hearing Aid Opthamlomology History: Reports: Hx Cataracts, Hx Contacts or Glasses Neurological History: Reports: Hx Seizures, Other Neuro Impairments/Disorders - PERIPHERAL NEUROPATHY Denies: Hx Dementia Psychiatric History: Reports: Hx Anxiety, Hx Depression, Hx Panic Disorder, Hx Post Traumatic Stress Disorder, Hx Inpatient Treatment, Hx Community Mental Health Tx, Hx Bipolar Disorder, Hx Suicide Attempt, Hx of Violent Episodes Against Others, Hx Substance Abuse - ETOH, Other Psychiatric Issues/Disorders - has had ECT treatment Denies: Hx Attention Deficit Hyperactivity Disorder, Hx Eating Disorder, Hx Schizophrenia - Surgical History Surgery Procedure, Year, and Place: CABG, PACEMAKER - Immunization History Date of Tetanus Vaccine: PT STATES UNSURE Date of Influenza Vaccine: NONE Infectious Disease History: No Infectious Disease History: Reports: Hx Tuberculosis - hx of inactive TB Denies: Hx Clostridium Difficile, Hx Hepatitis, Hx Human Immunodeficiency Virus (HIV), Hx of Known/Suspected MRSA, Hx Shingles, Hx Known/Suspected VRE, Hx Known/Suspected VRSA, History Other Infectious Disease, Traveled Outside the [place] in Last 30 Days - Family History Known Family History: Positive: Other - Mother -- depression, Father -- EtOH abuse - Social History Alcohol Use: Daily Alcohol Amount: REPORTS BEER WITH DINNER TONIGHT Hx Substance Use: Yes Substance Use Type: Reports: Marijuana Substance Use Comment - Amount & Last Used: last weekend Hx Tobacco Use: Yes Smoking Status (MU): Heavy Every Day Tobacco Smoker Type: Cigarettes Amount Used/How Often: 1/2 PPD Length of Time of Smoking/Using Tobacco: 40 YRS Have You Smoked in the Last Year: Yes Review of Systems Negative: Fever Positive: Other - Bilateral lower leg pain, neuropathy in his feet, and pain all the way up to his waist All Other Systems Reviewed And Are Negative: Yes Physical Exam - Summary Physical Exam Summary: VITAL SIGNS: Reviewed. GENERAL: Patient is a well-developed and nourished MALE who is lying comfortable in the stretcher. Patient is not in any acute respiratory distress. Somewhat slow speech but I think that is his baseline. HEAD AND FACE: No signs of trauma. No ecchymosis, hematomas or skull depressions. No sinus tenderness. EYES: PERRLA, EOMI x 2, No injected conjunctiva, no nystagmus. EARS: Hearing grossly intact. Ear canals and tympanic membranes are within normal limits. MOUTH: Oropharynx within normal limits. NECK: Supple, trachea is midline, no adenopathy, no JVD, no carotid bruit, no c- spine tenderness, neck with full ROM. CHEST: Symmetric, no tenderness at palpation LUNGS: Clear to auscultation bilaterally. No wheezing or crackles. CVS: Irregular rhythm, 1 and S2 present, no murmurs or gallops appreciated. ABDOMEN: Soft, non-tender. No signs of distention. No rebound no guarding, and no masses palpated. Bowel sounds are normal. EXTREMITIES: FROM in all major joints, cold feet bilat, bilat femoral pulses but no pulse after that, sensory is intact in feet NEURO: Alert and oriented x 3. No acute neurological deficits. Speech is normal and follows commands. SKIN: Dry and warm Triage Information Reviewed: Yes Vital Signs On Initial Exam: Initial Vitals Temp Pulse Resp BP Pulse Ox 98.2 F 94 20 151/93 100 09/24/18 18:23 09/24/18 18:23 09/24/18 18:23 09/24/18 18:23 09/24/18 18:23 Vital Signs Reviewed: Yes Diagnostics - Vital Signs Vital Signs Temp Pulse Resp BP Pulse Ox 09/24/18 18:23 98.2 F 94 20 151/93 100 - Laboratory Result Diagrams: 09/24/18 19:43 09/24/18 19:43 Lab Statement: Any lab studies that have been ordered have been reviewed, and results considered in the medical decision making process. - Radiology Chest X-Ray Radiology Interpretation Completed By: ED Physician Summary of Radiographic Findings: 20:51 - No acute disease. Pending official report. - EKG 20:42 Cardiac Rate: Tachycardia - 113 BPM EKG Rhythm: Atrial Fibrillation ST Segment: Non-Specific Re-Evaluation - Re-Evaluation 1 Re-Evaluation Time: 20:56 Comment: Informed the patient that he would be admitted. Lower Extremity Course/Dx - Course Course Of Treatment: This patient is a 63 year old M presenting to [facility] with a chief complaint of bilat lower leg pain since 2 years ago. The pain has gotten progressively worse. He knows that he needs a vascular bypass but his surgeon wont do it until he quits smoking. Patient has yet to quit smoking. Chest X- Ray showed no acute disease. EKG showed 113 bpm, tachycardia, A Fib, and nonspecific ST wave changes. Lab results were unremarkable except for Hgb 13.1 L , MPV 7.1 L, Sodium 128 L, Chloride 95 L, Magnesium 1.7 L, Alkaline Phosphatase 128 H. Patient did have 1 minute episode of asymptomatic ventricular tachycardia. Patient was asymptomatic. Patient will be admitted to Dr. Aldridge with a dx of ventricular tachycardia and peripheral vascular disease. - Diagnoses Provider Diagnoses: Ventricular tachycardia, Peripheral vascular disease - Physician Notifications Discussed Care Of Patient With: Ab Aldridge - Hospitalist Time Discussed With Above Provider: 20:53 Instructed by Provider To: Admit As Inpatient - Critical Care Time Critical Care Time: 30-74 min - 40 minutes Discharge - Sign-Out/Discharge Documenting (check all that apply): Patient Departure - Admit - Discharge Plan Condition: Stable Disposition: ADMITTED TO [facility] Referrals: Louie Lewis MD [Primary Care Provider] - - Attestation Statements Document Initiated by Scribe: Yes Documenting Scribe: Pedro Beltran Provider For Whom Scribe is Documenting (Include Credential): Tehsa Solomon MD Scribe Attestation: Pedro Meade, scribed for Tesha Solomon MD on 09/24/18 at 2055. Status of Scribe Document: Ready
[2018-09-24] MEDS ORDERED: Thiamine IV* 100 MG, Folic Acid IV* 1 MG, Multiple Vitamin IV ADULT* 10 ML in NS 0.9% 1... IV ONE (19:33)
[2018-09-24] MEDS ORDERED: Morphine 4 MG/ML VIAL (1 ml) 4 MG/ML VIAL IV ONE (19:35)
[2018-09-24] MEDS ORDERED: Thiamine TAB* 100 MG TAB PO ONE (19:50)
[2018-09-24 19:51] LABS: ABS Basophils 0 10^3/ul (0-0.2); ABS Eosinophils 0.4 10^3/ul (0-0.6); ABS Lymphocytes 1.1 10^3/ul (1.0-4.8); ABS Monocytes 0.8 10^3/ul (0-0.8); ABS Neutrophils 3.9 10^3/ul (1.5-7.7); ABS Nucleated RBC 0 10^3/ul; Eosinophil % 5.9 %; Hematocrit 38 % (36-46); Hemoglobin 13.1 g/dL (14.0-18.0); Mean Corpuscular HGB Conc 34 g/dL (31-36); Mean Corpuscular Hemoglobin 31 pg (27-31); Mean Corpuscular Volume 89 fL (80-94); Mean Platelet Volume 7.1 fL (7.4-10.4); Nucleated Red Blood Cells % 0; Platelet Count 273 10^3/uL (150-450); Red Blood Count 4.28 10^6 /uL (4.18-5.48); Red Cell Distribution Width 15 % (10.5-15); White Blood Count 6.1 10^3/uL (3.5-10.8)
[2018-09-24 19:59] LABS: Activated Partial Thrombo Time 27.8 seconds (26.0-36.3); INR 0.99 (0.77-1.02)
[2018-09-24 20:08] LABS: ALT 15 U/L (7-52); AST 25 U/L (13-39); Albumin 3.8 g/dL (3.2-5.2); Albumin/Globulin Ratio 1.2 (1-3); Alkaline Phosphatase 128 U/L (34-104); Anion Gap 10 mmol/L (2-11); BUN/Creatinine Ratio 16.2 (8-20); Blood Urea Nitrogen 16 mg/dL (6-24); CO2 Carbon Dioxide 23 mmol/L (22-32); Calcium 8.9 mg/dL (8.6-10.3); Chloride 95 mmol/L (101-111); EGFR African American 92.4 (>60); EGFR Non-African American 76.3 (>60); Globulin 3.2 g/dL (2-4); Glucose 88 mg/dL (70-100); Magnesium 1.7 mg/dL (1.9-2.7); Potassium 4.1 mmol/L (3.5-5.0); Sodium 128 mmol/L (135-145)
[2018-09-24] MEDS ORDERED: levETIRAcetam TAB* 500 MG PO ONE (20:09)
[2018-09-24] MEDS ORDERED: FOLIC ACID IVPB ONE ×7 (20:15)
[2018-09-24] MEDS ORDERED: MULTIPLE VITAMIN IVPB ONE ×7 (20:15)
[2018-09-24] MEDS ORDERED: NS 0.9% IVPB ONE ×7 (20:15)
[2018-09-24 20:25] LABS: Alcohol < 10 mg/dL (<10)
[2018-09-24] MEDS ORDERED: Magnesium Sulfate 2 GM IV* 2 GM/50 ML BAG IVPB ONE (20:35)
[2018-09-24] MEDS ORDERED: Magnesium Sulfate 2 GM IV* 2 GM/50 ML BAG ONE (20:36)
[2018-09-24 20:57] LABS: Troponin I 0.01 ng/mL (<0.04)
[2018-09-24 21:40] LABS: Digoxin 1.5 ng/ml (0.8-2.0)
[2018-09-24] MEDS ORDERED: Acetaminophen TAB* 325 MG PO PRN (21:59)
[2018-09-24] MEDS ORDERED: Al Hydrox/Mg Hydrox/Simet LIQ* 30 ML UDC PO PRN (21:59)
[2018-09-24 22:32] LABS: TSH (Thyroid Stimulating Horm) 7.65 mcIU/mL (0.34-5.60)
[2018-09-24] MEDS ORDERED: LORazepam TAB(*) 1 MG PO SCH (23:00)
[2018-09-24] MEDS: NS 0.9% 1000 ML** 1,000 ML IV SCH (23:59)
[2018-09-25] MEDS ORDERED: Tamsulosin CAP* 0.4 MG PO ONE (00:02)
[2018-09-25] MEDS: oxyCODONE/Acetamin 5/325 MG* TAB PO PRN ×2 (00:20→13:19)
--- NOTE | 2018-09-25 00:31 | HP ---
CC: Dr. Louie Lewis * HISTORY AND PHYSICAL: DATE OF ADMISSION: 09/24/18 PRIMARY CARE PROVIDER: Dr. Louie Lewis. OTHER PROVIDERS: Dr. Reich, the patient's outpatient scarfer; Dr. Servin , the patient's outpatient manager grocery. ATTENDING PHYSICIAN: Dr. Ab Aldridge * (dictated by Elissa Meyers NP.) CHIEF COMPLAINT: Bilateral lower extremity pain. HISTORY OF PRESENT ILLNESS: Mr. Cortez is a 63-year-old male with a past medical history significant for bipolar disease, depression, seizure disorder, alcohol abuse, hypertension, SIADH, neuropathy, PVD, COPD, mitral regurgitation , status post mitral valve replacement, chronic atrial fibrillation; who presented to the emergency room today with a chief complaint of bilateral leg pain for about two years. He reports he presented today because on Sunday it was too busy to be seen and the pain has just gotten progressively worse. He reports that he needs a vascular bypass, but his surgeon will not touch him as he has not quit smoking. The patient reports the "neuropathic" pain in bilateral feet radiates all the way up to his waist into his belly. While in the emergency room, the patient had a CBC which was unremarkable. The patient had a BMP which revealed a sodium of 128 and a magnesium of 1.7. Finally, there was concern as the patient was observed on the monitor and possibly had a 1-minute episode of asymptomatic ventricular tachycardia. Therefore, the hospitalist team was asked to evaluate for admission. PAST MEDICAL HISTORY: 1. Bipolar disease. 2. Depression. 3. Seizure disorder. 4. Alcohol abuse. 5. Hypertension. 6. SIADH. 7. Neuropathy. 8. PVD. 9. COPD. 10. Mitral regurgitation, status post mitral valve replacement with a bioprosthetic valve. 11. History of chronic atrial fibrillation. 12. Hyperlipidemia. 13. Tobacco user. PAST SURGICAL HISTORY: Insertion of pacemaker and history of bioprosthetic valve with mitral valve replacement. MEDICATIONS: 1. Metoprolol tartrate 25 mg p.o. daily. 2. Lipitor 40 mg p.o. daily. 3. Diltiazem 250 mg daily. 4. Depakote Extended Release 1500 mg daily. 5. Digoxin 0.25 mg daily. 6. Breo Ellipta 1 puff daily. 7. Hydralazine 50 mg q.6 hours as needed. 8. Advair 2 puffs b.i.d. 9. Pletal 100 mg p.o. b.i.d. 10. Aspirin 81 mg daily. 11. Zoloft 100 mg daily. 12. Gabapentin 600 mg b.i.d. 13. Keppra 500 mg b.i.d. ALLERGIES: The patient has no known drug allergies. FAMILY HISTORY: The patient reports he does not know his family history. SOCIAL HISTORY: The patient is a current smoker, smokes approximately a pack and a half a day. The patient endorses alcohol use. The patient reports he has reduced his alcohol use significantly. The patient reports he used to drink 6 to 12 beers a day, but now drinks 1 to 2 beers a day. The patient is and lives alone. The patient reports daily marijuana use. The patient reports that he does not have a surrogate decision-maker as he is "100%" not in contact with his family. REVIEW OF SYSTEMS: The patient reports bilateral lower extremity pain that extends from the feet all the way to hips and abdomen. The patient reports pain is 10/10. The patient denies numbness and tingling. The patient denies weakness. The patient denies chest pain, palpitations, shortness of breath, nausea, vomiting, diaphoresis, diarrhea, dizziness, headache. A 12-point review of systems was completed and all others were negative. PHYSICAL EXAMINATION GENERAL: Mr. Cortez is a 63-year-old male, who is sitting in bed, appears to be in no acute distress, appears stated age. The patient is very talkative. VITAL SIGNS: Temp 98.2, HR 87, RR 22, O2 saturation 99% on room air, BP 115/99. HEENT: EOMs intact. PERRLA. Oral mucosa is moist without lesions. Posterior pharynx is clear. NECK: Supple. No lymphadenopathy. RESPIRATORY: Lung sounds are clear bilaterally. Good aeration. No wheezes, rhonchi or rales. CARDIAC: S1, S2 present. No murmurs, rubs, or gallops. Irregular rhythm ( history of AFib). ABDOMEN: Soft, nontender to palpation. Bowel sounds x4. EXTREMITIES: Skin is warm and smooth bilaterally. No edema. No clubbing or cyanosis. Pedal pulses 2+ bilaterally. MUSCULOSKELETAL: Full range of motion. No pain or deformities. NEURO: Awake, alert, and oriented x4. Cranial nerves II through XII grossly intact. Moves all extremities. Motor strength is 5/5 in upper and lower extremities bilaterally. SKIN: Grossly intact without lesions. DIAGNOSTIC STUDIES/LAB DATA: WBC 6.1, hemoglobin of 13.1, hematocrit of 38, platelets 273. Sodium is 128, potassium of 4.1, chloride 95, carbon dioxide 23 , BUN 16, creatinine 0.99, glucose 88, magnesium 1.7, alk phos 128, digoxin 1.5. Serum alcohol is less than 10. Chest x-ray: No acute cardiopulmonary disease, awaiting official report. EKG: Impression: Atrial fibrillation, ventricular premature complexes, right bundle-branch block. ST depression in V1. ASSESSMENT AND PLAN: Mr. Cortez is a 63-year-old male with a past medical history significant for bipolar disease, seizure disorder, alcohol abuse, hypertension, peripheral vascular disease, chronic obstructive pulmonary disease , chronic atrial fibrillation (pacemaker); who presented to the emergency department today due to bilateral leg pain that has been present for 2 years and worsening recently. The patient was noted to have a possible 1-minute run of ventricular tachycardia. Therefore, the patient will be admitted to telemetry for observation. 1. Arrhythmia: As mentioned in the HPI and above, the patient's admission was requested due to possible ventricular tachycardia noted on the telemonitor in the emergency department. Given that the patient has a pacemaker and is AV paced, my attending and I have reviewed the strip and it is very likely that this arrhythmia is actually supraventricular tachycardia or paced rhythm. There are pacer spikes present. Either way, the patient will be admitted to observation and placed on tele. The patient will have an echo obtained. The patient will have his pacemaker interrogated. The patient will have cycle troponins. Initial troponin is 0.01. The patient will have a repeat EKG in the morning. The patient is currently symptom-free, but if he becomes symptomatic, we will plan accordingly. I would recommend Cardiology be consulted in the morning. The patient is a known patient of Dr. Reich. It should also be noted that the patient's magnesium was 1.7. He received 2 g in the emergency department. We will repeat this tomorrow. The patient's potassium is within normal limits. 2. Bilateral leg pain: This is a chronic issue for the patient. He admits that this has been going on for 2 years and he was going to be seen here on Sunday, but it was too busy; therefore, he came today. The patient has known peripheral vascular disease and is on Pletal. The patient has been offered revascularization with the stipulation that he needs to quit smoking. The patient has not quit smoking. We will continue the patient's medication of Pletal. We will add p.r.n. pain medications as needed. We will encourage smoking cessation. 4. Bipolar disease: We will continue the patient's home medications as same. 5. Depression: We will continue the patient's home medications as same. 6. Seizure disorder: We will continue the patient's home medications as same. He will be placed on seizure precautions. 7. Alcohol abuse: The patient reports that he has significantly decreased his alcohol intake, but still drinks daily. The patient will be placed on WAM protocol. 8. Hypertension: The patient will be continued on his home medications as same. The patient will have routine vital signs. 9. Syndrome of inappropriate antidiuretic hormone secretion: The patient currently does not have any signs or symptoms of syndrome of inappropriate antidiuretic hormone secretion. We will continue to monitor. 10. Neuropathy: This is associated with the patient's peripheral vascular disease. The patient is currently on Pletal. We can consider gabapentin if patient can tolerate. 11. Peripheral vascular disease: See#2 bilateral leg pain. 12. Chronic obstructive pulmonary disease: We will continue the patient's home inhalers. He has no signs or symptoms of chronic obstructive pulmonary disease exacerbation. 13. Mitral regurgitation, status post mitral valve replacement, with bioprosthetic valve: We will continue the patient's aspirin. The patient will have an echo tomorrow. 14. History of chronic atrial fibrillation: As mentioned above, the patient has an AV pacer. I have ordered the pacer to be interrogated. I will continue the patient's digoxin, diltiazem, metoprolol. We will monitor the patient's magnesium. We will place the patient on tele. The patient will also have an echo tomorrow. It should be mentioned that at patient's last visit with Dr. Reich in January 2018, they did discuss anticoagulation, but given the patient's seizure history, alcohol abuse, high fall risk and noncompliance, they decided that the patient will have to continue off anticoagulation because of his concern of bleeding. We can readdress this while the patient is inpatient. 15. Hyperlipidemia: The patient will be continued on his statin. I have ordered lipids to be drawn in the morning. 16. Tobacco use: I will order the patient nicotine replacement. The patient should be encouraged to quit smoking. 17. FEN: The patient has been placed on heart-healthy diet with no caffeine. 18. Code status: The patient is a full code. 19. DVT prophylaxis: Based on the DVT risk assessment, the patient is high risk. I will order subcutaneous heparin. TIME SPENT: Approximately 60 minutes was spent on this admission; greater than half the time was spent with the patient obtaining my history and performing my physical exam, and reviewing my plan of care. This case has been reviewed with my attending, Dr. Aldridge, who agrees with my plan. ELISSA MEYERS, JEFFREY [id number]/CPS #: [id number] YARIEL
[2018-09-25 05:47] LABS: ABS Basophils 0.1 10^3/ul (0-0.2); ABS Eosinophils 0.5 10^3/ul (0-0.6); ABS Lymphocytes 1.4 10^3/ul (1.0-4.8); ABS Monocytes 0.7 10^3/ul (0-0.8); ABS Nucleated RBC 0 10^3/ul; Eosinophil % 10.3 %; Hematocrit 38 % (36-46); Hemoglobin 12.8 g/dL (14.0-18.0); Lymphocyte % 29.3 %; Mean Corpuscular HGB Conc 34 g/dL (31-36); Mean Corpuscular Hemoglobin 31 pg (27-31); Mean Corpuscular Volume 90 fL (80-94); Nucleated Red Blood Cells % 0.1; Platelet Count 231 10^3/uL (150-450); Red Blood Count 4.18 10^6 /uL (4.18-5.48); Red Cell Distribution Width 15 % (10.5-15); White Blood Count 4.7 10^3/uL (3.5-10.8)
[2018-09-25] MEDS ORDERED: Levothyroxine TAB* 25 MCG TAB PO SCH (06:00)
[2018-09-25 06:06] LABS: Albumin 3.4 g/dL (3.2-5.2); Albumin/Globulin Ratio 1.1 (1-3); BUN/Creatinine Ratio 14.9 (8-20); Calcium 8.5 mg/dL (8.6-10.3); EGFR African American 107.2 (>60); EGFR Non-African American 88.6 (>60); Globulin 3.1 g/dL (2-4); HDL Cholesterol 66.6 mg/dL; Indirect Bilirubin 0.4 mg/dL (0.3-1.0); Magnesium 2.2 mg/dL (1.9-2.7); Total Bilirubin 0.5 mg/dL (0.2-1.0); Total Protein 6.5 g/dL (6.4-8.9)
[2018-09-25] MEDS: Tiotropium CAP.INH* CAP.INH/18 MCG (USE ORDER SET !) INH SCH ×2 (07:57→08:19)
[2018-09-25] MEDS: levETIRAcetam TAB* 500 MG PO SCH ×2 (07:59→13:14)
[2018-09-25] MEDS ORDERED: Nicotine PATCH 21 MG/24 HR* PATCH TRANSDERM SCH (08:00)
--- NOTE | 2018-09-25 08:10 | PN ---
Progress Note - Progress Note Date of Service: 09/24/18 Note: Pt. admitted last night for vtach and PVD. CXR in ED read as negative. Dr. Bond's reading this morning: IMPRESSION: LEFT MIDLUNG CONSOLIDATION, WITH SMALL LEFT PLEURAL EFFUSION. RECOMMEND FOLLOW-UP UNTIL RESOLUTION TO EXCLUDE UNDERLYING PULMONARY PARENCHYMAL PATHOLOGY. FINDINGS WERE DISCUSSED WITH JAMAL WRIGHT IN THE EMERGENCY DEPARTMENT AT APPROXIMATELY 7: 45 AM ON SEPTEMBER 25, 2018. I spoke with pt.'s attending, Patricia Charlton PA-C at 0808 and informed her of read. <Jamal Wright - Last Filed: 09/25/18 08:07> Attestation Statement Provider Attestation: I was available for consult. This patient was seen by the MARTI. The patient was not presented to, seen by, or examined by me. -Kinsey <Katrin Unger - Last Filed: 09/25/18 10:39>
[2018-09-25] MEDS ORDERED: Spiriva Inhaler DEVICE* 1 EACH DEVICE INH ONE (09:00)
[2018-09-25] MEDS ORDERED: Divalproex ER TAB(*) 500 MG PO SCH (09:00)
[2018-09-25] MEDS ORDERED: Diltiazem CD CAP* 240 MG PO SCH (09:00)
[2018-09-25] MEDS ORDERED: Heparin VIAL(*) 5000 UNITS/ML VIAL (FIVE THOUSAND) SUBCUT SCH (09:00)
[2018-09-25] MEDS ORDERED: Atorvastatin* 20 MG TAB PO SCH (09:00)
[2018-09-25] MEDS ORDERED: Aspirin EC TAB* 81 MG TAB.EC PO SCH (09:00)
[2018-09-25] MEDS ORDERED: Thiamine TAB* 100 MG TAB PO SCH (09:00)
[2018-09-25] MEDS ORDERED: Digoxin TAB* 0.25 MG PO SCH (09:00)
[2018-09-25] MEDS ORDERED: Cilostazol TAB* 100 MG PO SCH (09:00)
[2018-09-25] MEDS ORDERED: Sertraline* 100 MG TAB PO SCH ×3 (09:00)
[2018-09-25] MEDS ORDERED: Fluticasone/Vilanterol MDI(NF) 100/25 MDI INH SCH (09:00)
[2018-09-25] MEDS ORDERED: Multivitamins/Minerals TAB PO SCH (09:00)
[2018-09-25] MEDS ORDERED: Folic Acid TAB* 1 MG PO SCH (09:00)
[2018-09-25] MEDS ORDERED: Umeclidinium 62.5 MDI(NF) MDI INH SCH (09:00)
[2018-09-25] MEDS ORDERED: Perflutren Lipid Microsphere* 3 ML VIAL ONE (09:37)
--- NOTE | 2018-09-25 14:02 | ECHO ---
Patient: GILDA JAIME [facility] Rec#: [id number] : 1955 Date: 09/25/2018 Age: 63y Height: 178 cm / 70.1 in Weight: 170 kg / 374.7 lbs Sex: M BSA: 2.73 Room#: 438 Admit Date#: 09/24/2018 Type: Inpatient Referring: Imani Wheeler Reading: Rosales Reich MD [employer] Driver: Trisha Garvey RDCS CC: Louie Osei CC: SHANITA ELLIS Transthoracic Echocardiogram Indication: Abn EKG BP: 155/84 HR: 93 Rhythm: Paced Findings History: Seizures,ETOH abuse, s/p MV replace,A-fib s/p pacer insert,smoker,HLD. Technical Comments: The study is technically limited due to the patient's smoking history. Completed at 1040. Definity used to enhance images. Left Ventricle: Mild concentric left ventricular hypertrophy is observed. The estimated ejection fraction is 60-65%. Post surgical hypokinesis of the interventricular septum is observed consistent with valve replacement. There is abnormal ventricular septal wall motion consistent with right ventricular pacemaker. The assessment of diastolic function is non-diagnostic. Left Atrium: The left atrium is moderately dilated. Right Ventricle: The right ventricular cavity size is normal.Borderline RVH at 5 mm. The right ventricular global systolic function is mildly reduced. A pacemaker wire is visualized in the right ventricle. Right Atrium: The right atrium is mildly dilated. A pacemaker wire is visualized in the right atrium. Aortic Valve: The aortic valve is trileaflet. The aortic valve leaflets are mildly thickened. Systolic excursion of the aortic valve cusps is reduced. There is no evidence of aortic regurgitation. There is no evidence of aortic stenosis. Mitral Valve: There is no evidence of mitral regurgitation. A bioprosthetic mitral valve is present. c/w a 27 [employer] porcine. The bioprosthetic mitral valve appears to be functioning normally. Tricuspid Valve: The tricuspid valve leaflets are normal. There is mild tricuspid regurgitation. There is evidence of mild to moderate pulmonary hypertension. There is no tricuspid stenosis. Pulmonic Valve: The pulmonic valve appears normal. There is no evidence of pulmonic regurgitation. There is no pulmonic stenosis. Pericardium: The pericardium appears normal. Aorta: The ascending aorta is not well visualized. The aortic arch is not well visualized. The aortic root is normal in size. Pulmonary Artery: The main pulmonary artery appears normal. Venous: The venous system is not well visualized. Contrast: Definity was used to optimize study. A totalof 3 ml used. Intravenous contrast was used to enhance endocardial border definition. Conclusions Afib Mild concentric left ventricular hypertrophy is observed. The estimated ejection fraction is 60-65%. Post surgical hypokinesis of the interventricular septum is observed consistent with valve replacement. The left atrium is moderately dilated. The right ventricular global systolic function is mildly reduced. The right atrium is mildly dilated. The right atrium is mildly dilated. The aortic valve leaflets are mildly thickened. Systolic excursion of the aortic valve cusps is reduced. The bioprosthetic mitral valve appears to be functioning normally. Similar to 01/2016 except for the mild decrease in RV function. Measurements Name Value Normal Range RVIDd (AP) 2D 2.8 cm (0.9 - 2.6) RVDdMajor (2D) 2.9 cm (2.2 - 4.4) RAd ISD 4CH 5.8 cm (3.4 - 4.9) RA (A4C)W 3.2 cm (2.9 - 4.6) IVSd (2D) 1 cm (0.6 - 1) LVPWd (2D) 1.1 cm (0.6 - 1) LVIDd (2D) 3.9 cm (3.6 - 5.4) LVIDs (2D) 2.9 cm - LV FS (2D) 26 % (25 - 45) Aortic Annulus 1.9 cm (1.4 - 2.6) Ao root diameter (2D) 3.1 cm (2.1 - 3.5) LA dimension (AP) 2D 4.4 cm (2.3 - 3.8) LAd ISD 4CH 5.6 cm (2.9 - 5.3) LA ISD 4CH W 4 cm (2.5 - 4.5) Name Value Normal Range MV E-wave Vmax 1.8 m/sec - MV deceleration time 317 msec - LV septal e' Vmax 0.06 m/sec - LV lateral e' Vmax 0.06 m/sec - LV E:e' septal ratio 30 ratio - LV E:e' lateral ratio 30 ratio - Name Value Normal Range AV Vmax 1.4 m/sec - AV VTI 23.3 cm - AV peak gradient 8 mmHg - AV mean gradient 3 mmHg - LVOT diameter 1.6 cm - LVOT Vmax 1.2 m/sec - LVOT VTI 23.8 cm - LVOT peak gradient 6 mmHg - LVOT mean gradient 3 mmHg - Name Value Normal Range MV Vmax 1.8 m/sec - MV VTI 44.4 cm - MV peak gradient 13 mmHg - MV mean gradient 5 mmHg - MV PHT 104 msec - MVA (PHT) 2.1 cm2 - MVA (continuity VTI) 1.1 cm2 - Name Value Normal Range TR Vmax 3 m/sec - TR peak gradient 36 mmHg - RAP 8 mmHg - RVSP 44 mmHg - Name Value Normal Range PV Vmax 0.8 m/sec - PV peak gradient 3 mmHg -
[2018-09-25] MEDS: NS 0.9% 1000 ML** 1,000 ML IV SCH (15:25)
[2018-09-25] MEDS ORDERED: Tamsulosin CAP* 0.4 MG PO SCH (16:00)
[2018-09-25 16:35] VITALS: BP 139/68
[2018-09-25] MEDS ORDERED: Levofloxacin TAB* 750 MG PO SCH (17:00)
[2018-09-25] MEDS ORDERED: oxyCODONE/Acetamin 5/325 MG* TAB PO ONE (17:05)
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
[2018-09-25] MEDS ORDERED: Mometasone/Formoter 100/5 MDI INH SCH (21:00)
[2018-09-25] MEDS ORDERED: Nicotine Patch Removal NOTE PATCH OFF SCH (21:00)
[2018-09-25] MEDS ORDERED: Metoprolol Succinate XL TAB* 25 MG PO SCH (21:00)
--- NOTE | 2018-09-25 21:24 | DS ---
CC: Dr. Louie Lewis * DISCHARGE SUMMARY: DATE OF ADMISSION: 09/24/18 DATE OF DISCHARGE: 09/25/18 PRIMARY CARE PROVIDER: Dr. Louie Lewis. ATTENDING PHYSICIAN: Dr. Joanna Sprague * (dictated by Patricia Charlton NP). PRIMARY DIAGNOSES: 1. Atrial fibrillation, pacemaker in place. 2. Peripheral vascular disease. 3. Alcohol abuse. SECONDARY DIAGNOSES: 1. Bipolar disease. 2. Hypertension. 3. Syndrome of inappropriate antidiuretic hormone. 4. Chronic obstructive pulmonary disease. 5. Hyperlipidemia. STUDIES WHILE IN THE HOSPITAL: 1. Chest x-ray on 09/24/18 reads as left mid lung consolidation with small left pleural effusion. Recommend followup until resolution to exclude underlying pulmonary parenchymal pathology. 2. EKG on 09/24/18 shows atrial fibrillation with a rate of 113, right bundle- branch block. Findings consistent with previous EKGs on file. 3. Transthoracic echocardiogram on 09/25/18 reads as mild concentric left ventricular hypertrophy is observed. The estimated ejection fraction is 60% to 65%. Postsurgical hypokinesis of the interventricular septum is observed consistent with valve replacement. The left atrium is moderately dilated. The right ventricular global systolic function is mildly reduced. The right atrium is mildly dilated. The aortic valve leaflets are mildly thickened. Systolic excursion of the aortic valve cusps is reduced. The bioprosthetic mitral valve appears to be functioning normally. Similar to January 2016 except for the mild decrease in RV function. 4. EKG on 09/25/18 shows atrial fibrillation with the rate of 83, QTc 433, right bundle-branch block. HISTORY OF PRESENT ILLNESS AND HOSPITAL COURSE: Mr. Cortez is a 63-year-old male with a past medical history of bipolar, seizure disorder, alcohol abuse, hypertension, SIADH, peripheral vascular disease, COPD, mitral valve replacement , atrial fibrillation, and hyperlipidemia, who presented to the emergency room on 09/24/18 with complaints of bilateral lower extremity pain. Please see the history and physical by Imani Wheeler NP, for complete summary of the events leading up to this hospitalization. In short, the patient has had consistent bilateral leg pain for approximately 2 years, which he feels has recently gotten worse. He reports that he has been told in the past that he needs a vascular bypass, but his surgeon will not operate on him if he is still smoking, which he is. In the emergency room, the patient was noted to have essentially normal labs. He did have some hyponatremia, although this was consistent with his baseline. Vital signs were stable. At one point in the emergency room, he was noted to have a 1 minute episode of wide complex rhythm. He was asymptomatic during this time, though there was some concern for ventricular tachycardia, and so the patient was admitted by the hospitalist service. The patient was monitored on telemetry and he had no further arrhythmias on telemetry. He has been in atrial fibrillation since arrival. Upon reviewing the telemetry strips from the emergency room, it appears as though there were pacer spikes during this wide complex rhythm, so I had a very low suspicion for any sort of ventricular tachycardia. The patient did have 3 negative troponins and EKG consistent with his baseline. He did have his pacemaker interrogated this morning which showed that he has been in atrial fibrillation 100% of the time. The episode noted yesterday was an episode of ventricular pacing and did not represent any sort of ventricular tachycardia or supraventricular tachycardia. Regarding the patient's leg pain, the patient does admit to me again that he knows he needs revascularization of his legs, though he is currently smoking and so he was not a surgical candidate. This leg pain is consistent with his baseline. Reportedly, overnight the patient expressed some suicidal ideations to his nurse, and so the patient was seen by Psychiatry today. Shefali Cortez NP, from Psychiatry had no psychiatric concerns and felt as though the patient was stable for discharge. The patient was noted to have some consolidation on chest x-ray consistent with pneumonia. Though he is currently asymptomatic, due to his comorbidities, I feel it is reasonable to treat him for pneumonia at this point, and so he has been given 1 dose of Levaquin here in the hospital. On exam today, the patient reports feeling well. Heart rate is irregular consistent with his atrial fibrillation. Bilateral pedal pulses are very weak though present and there is some degree of neuropathy, though movement and sensation are intact to bilateral lower extremities. I did speak with the patient about smoking cessation and he asked what the immediate benefits would be to quitting smoking. I did advise the patient of multiple benefits of quitting smoking including the fact that he may be a surgical candidate going forward for revascularization of his legs which would hopefully resolve his current leg pain. He reportedly has been in touch with a vascular surgeon in [place]. Because there are no cardiac or psychiatric concerns and the patient' s leg pain is at baseline, he is stable for discharge. Mr. Cortez is stable for discharge today. Vital signs are as follows: Temp 97.6, heart rate 76, respiratory rate 20, oxygen saturation 95% on room air, blood pressure 139/68. DISCHARGE MEDICATIONS: New medications: 1. Levaquin 750 mg p.o. daily x4 days. 2. Folic acid 1 mg p.o. daily. 3. Multivitamin 1 tab p.o. daily. 4. Nicotine patch 21 mg 1 patch transdermal daily. 5. Thiamine 100 mg p.o. daily. Continued medications: 1. Aspirin 81 mg p.o. daily. 2. Atorvastatin 20 mg p.o. daily. 3. Pletal 100 mg p.o. b.i.d. 4. Digoxin 0.25 mg p.o. daily. 5. Diltiazem 240 mg p.o. daily. 6. Depakote 1500 mg p.o. daily. 7. Breo Ellipta 100/25 one puff daily. 8. Keppra 750 mg p.o. t.i.d. 9. Levothyroxine 25 mcg p.o. daily. 10. Lorazepam 2 mg p.o. b.i.d. p.r.n. anxiety. 11. Metoprolol 25 mg p.o. daily. 12. Sertraline 20 mg p.o. daily. 13. Tamsulosin 0.4 mg p.o. daily. 14. Spiriva 1 cap inhalation daily. 15. Incruse Ellipta 62.5 one puff daily. DISCHARGE PLAN: Mr. Cortez will be discharged home. Activity will be as tolerated. Diet should be heart healthy. Medications are noted above. The patient has been prescribed a 4-day course of Levaquin to complete a total of 5 days of antibiotic therapy for his pneumonia noted on chest x-ray. Again, I will note that the patient is asymptomatic, though due to his significant comorbidities, I feel it is reasonable to treat him at this point. He should also continue to take folic acid, thiamine, and a multivitamin due to his chronic alcoholism and I have prescribed him 30 days worth of a nicotine patch to aide him in smoking cessation. He can continue his other usual medications as noted above. I will note that the patient does have atrial fibrillation, although is not on anticoagulation due to his seizure history, alcohol abuse, high fall risk, and noncompliance. The patient has been advised to stop smoking and to abstain from alcohol. He will need to follow up with primary care provider in 4 to 7 days. He should also follow up with his vascular surgeon to determine if he will be a candidate for revascularization. The patient is advised to return to the emergency room or nearest hospital for any worsening of symptoms, shortness of breath, lightheadedness, dizziness, chest discomfort, high fevers, chills, night sweats, loss of consciousness, or any other worrisome signs or symptoms. DISCHARGE CONDITION: Stable. DISCHARGE DISPOSITION: Home. This is a summarized report of a complex medical history and hospital stay. For further details, please see the entire medical record. TIME SPENT: Approximately 45 minutes was spent on this discharge. PATRICIA CHARLTON NP [id number]/[facility] #: [id number] YARIEL
== END 2018-09-25 17:15 | disposition home or self-care (01) ==
LOC: ED 18:04 → MEDTELE 21:59
PROVIDERS: ADMIT Internal Medicine; ATTEND Internal Medicine
DX: I48.91 Unspecified atrial fibrillation (principal); Z95.0 Presence of cardiac pacemaker; I73.9 Peripheral vascular disease, unspecified; F10.10 Alcohol abuse, uncomplicated; M79.669 Pain in unspecified lower leg; F31.9 Bipolar disorder, unspecified; I10 Essential (primary) hypertension; J44.9 Chronic obstructive pulmonary disease, unspecified; E78.5 Hyperlipidemia, unspecified; Z79.82 Long term (current) use of aspirin; F32.9 Major depressive disorder, single episode, unspecified; G40.909 Epilepsy, unspecified, not intractable, without status epilepticus; G62.9 Polyneuropathy, unspecified; I34.0 Nonrheumatic mitral (valve) insufficiency; Z95.4 Presence of other heart-valve replacement
CPT/HCPCS: 36415; 71045; 80053; 80061; 80162; 80164; 80320; 82140; 82248; 83605; 83735; 84443; 84484; 85025; 85610; 85730; 93005; 93306; 96365; 96375; 99285; A9270-GY; C8929; G0378; G0480; J1644; J2270; J3411; J3475

== ENCOUNTER 2018-11-24 08:27 | Inpatient (IN) | payer MEDICARE, MEDICAID ==
[2018-11-24] MEDS ORDERED: NS 0.9% 1000 ML** 1,000 ML IV ONE ×2 (08:32→09:23)
--- NOTE | 2018-11-24 08:33 | ED ---
Shortness of Breath - HPI Summary HPI Summary: Patient is a 63 y/o M presenting to ED via EMS with complaints of SOB. SOB is reported to have been "off and on" for the past week. He states that when he has been SOB, he experiences fatigue, "wobbly legs", and sleep disturbance. Patient had an episode of SOB at midnight, he reports he took his inhaler but Sx returned and worsened around 0200 today. He decided to call EMS who reports that they placed him on 2L o2, patient was 96% o2 sat as a result. EMS reports giving no breathing treatments, EKG was normal, BP 160/90, BG 113. Chest pain and fever are denied, cough productive of green-yellow phlegm is endorsed. On triage, patient is reported to have been experiencing william as well. Patient is a current smoker. Hx of COPD, afib with RVR, HTN, neuropathy, manic depression, bipolar disorder, polysubstance abuse. On triage, pain is denied, o2 is noted to alleviate Sx. Home medications and allergies are reviewed. - History of Current Complaint Hx Obtained From: Patient Onset/Duration: Lasting Weeks - intermittent SOB for past week, Still Present, Worse Since - 0200 Timing: Intermittent Episodes Lasting: Current Severity: None Aggrevating Factors: Nothing Alleviating Factors: Oxygen Associated Signs & Symptoms: Cough (Productive) - Allergy/Home Medications Allergies/Adverse Reactions: Allergies Allergy/AdvReac Type Severity Reaction Status Date / Time No Known Allergies Allergy Verified 06/18/18 14:24 PMH/Surg Hx/FS Hx/Imm Hx Endocrine/Hematology History: Reports: Hx Anticoagulant Therapy Denies: Hx Diabetes, Hx Thyroid Disease Cardiovascular History: Reports: Hx Hypertension, Hx Pacemaker/ICD - [employer]ANT - NOT MR SAFE/CONDITIONAL, Hx Peripheral Vascular Disease , Hx Valvular Heart Disease - Recent valve replacement surgery, Other Cardiovascular Problems/Disorders - Hx Atrial Fibrillation and was treatment with Warfarin which has been d/c'd Respiratory History: Reports: Hx Chronic Bronchitis, Hx Chronic Obstructive Pulmonary Disease (COPD), Other Respiratory Problems/Disorders - poss aspiration Denies: Hx Asthma History: Reports: Other Problems/Disorders - History of SIADH Denies: Hx Renal Disease Musculoskeletal History: Reports: Other Musculoskeletal History - peripheral neuropathy Denies: Hx Arthritis, Hx Osteoporosis Sensory History: Reports: Hx Cataracts, Hx Contacts or Glasses Denies: Hx Hearing Aid Opthamlomology History: Reports: Hx Cataracts, Hx Contacts or Glasses Neurological History: Reports: Hx Seizures, Other Neuro Impairments/Disorders - PERIPHERAL NEUROPATHY Denies: Hx Dementia Psychiatric History: Reports: Hx Anxiety, Hx Depression, Hx Panic Disorder, Hx Post Traumatic Stress Disorder, Hx Inpatient Treatment, Hx Community Mental Health Tx, Hx Bipolar Disorder, Hx Suicide Attempt, Hx of Violent Episodes Against Others, Hx Substance Abuse - ETOH, Other Psychiatric Issues/Disorders - has had ECT treatment Denies: Hx Attention Deficit Hyperactivity Disorder, Hx Eating Disorder, Hx Schizophrenia - Surgical History Surgery Procedure, Year, and Place: CABG, PACEMAKER - Immunization History Date of Tetanus Vaccine: PT STATES UNSURE Date of Influenza Vaccine: NONE Infectious Disease History: Reports: Hx Tuberculosis - hx of inactive TB Denies: Hx Clostridium Difficile, Hx Hepatitis, Hx Human Immunodeficiency Virus (HIV), Hx of Known/Suspected MRSA, Hx Shingles, Hx Known/Suspected VRE, Hx Known/Suspected VRSA, History Other Infectious Disease - Family History Known Family History: Positive: Other - Mother -- depression, Father -- EtOH abuse - Social History Alcohol Use: Daily Alcohol Amount: 6 beers and 1 pint Hx Substance Use: Yes Substance Use Type: Reports: Marijuana Substance Use Comment - Amount & Last Used: Last used Sunday Hx Tobacco Use: Yes Smoking Status (MU): Heavy Every Day Tobacco Smoker Type: Cigarettes Amount Used/How Often: 1/2 PPD Length of Time of Smoking/Using Tobacco: 40 YRS Have You Smoked in the Last Year: Yes Review of Systems Positive: Fatigue. Negative: Fever Negative: Chest Pain Positive: Shortness Of Breath, Cough Musculoskeletal: Other - POSITIVE - "WOBBLY" LEGS Psychological: Other - POSITIVE - SLEEP DISTRUBANCE, WILLIAM All Other Systems Reviewed And Are Negative: Yes Physical Exam - Summary Physical Exam Summary: Appearance: appears fatigued, no pain distress Skin: warm, dry, reflects adequate perfusion; forehead scar is noted Head/face: normal Eyes: EOMI, ANGELINA ENT: mucous membranes moist Neck: supple, non-tender Respiratory: inspiratory and expiratory wheezes, no crackles Cardiovascular: tachycardic, pulses symmetrical Abdomen: non-tender, soft, RLQ ventral hernia is noted Bowel Sounds: present Musculoskeletal: normal, strength/ROM intact, no BLE edema Neuro: normal, sensory motor intact, A&Ox3 Triage Information Reviewed: Yes Vital Signs On Initial Exam: Initial Vitals Pulse Resp BP Pulse Ox 94 22 183/114 98 11/24/18 07:39 11/24/18 07:39 11/24/18 07:39 11/24/18 07:39 Vital Signs Reviewed: Yes Diagnostics - Laboratory Result Diagrams: 11/24/18 08:51 11/24/18 08:51 Lab Statement: Any lab studies that have been ordered have been reviewed, and results considered in the medical decision making process. - Radiology CHEST X-RAY Radiology Interpretation Completed By: Radiologist Summary of Radiographic Findings: IMPRESSION: FINDINGS CONSISTENT WITH PROGRESSIVE RIGHT LOWER LOBE INFILTRATE AND. PNEUMONIA. THIS REPORT WAS REVIEWED BY DR. DURAND. - EKG 0836 Cardiac Rate: Other Rate - rapid afib with rate of 107 BPM EKG Rhythm: Atrial Fibrillation ST Segment: Non-Specific Ectopy: PVCs Summary of EKG Findings: EKG showed rapid afib with rate of 107 BPM, PVCs, non- specific ST. Course/Dx - Course Course Of Treatment: Nurse's notes reviewed. Patient with respiratory difficulty improved by breathing treatments and oxygen. X-ray was read as radiologist as possible pneumonia. Antibiotics were given. IV fluids were given. Patient was given magnesium and steroids given his underlying COPD. There was some suspicion of mind that CHF may be playing a role especially given that the BNP is elevated. A CT of the chest was obtained and is pending at time of disposition to the hospital. - Diagnoses Differential Diagnosis/HQI/PQRI: Positive: CHF, COPD Exacerbation, Pneumonia, Pulmonary Embolism Provider Diagnoses: COPD exacerbation, Right lower lobe pneumonia - Physician Notifications Discussed Care of Patient With: Kusum Gamboa Time Discussed With Above Provider: 09:32 Instructed by Provider To: Other - Patient's case was discussed with Dr. Gamboa , Dr. Gamboa accepts for admission at 0932. - Critical Care Time Critical Care Time: 30-74 min - 30 minutes, CCT is EXCLUSIVE of separately billable procedures. Discharge - Sign-Out/Discharge Documenting (check all that apply): Patient Departure - admit Patient Received Moderate/Deep Sedation with Procedure: No - Discharge Plan Condition: Stable Disposition: ADMITTED TO [facility] - Billing Disposition and Condition Condition: STABLE Disposition: Admitted to [facility] - Attestation Statements Document Initiated by Scribe: Yes Documenting Scribe: GUEVARA ROBLES Provider For Whom Scribe is Documenting (Include Credential): DOMINGO DURAND MD Scribe Attestation: I, GUEVARA ROBLES, scribed for DOMINGO DURAND MD on 11/24/18 at 1430. Scribe Documentation Reviewed: Yes Provider Attestation: The documentation as recorded by the [email or web address] accurately reflects the service I personally performed and the decisions made by me, DOMINGO DURAND MD Status of Scribe Document: Viewed
[2018-11-24] MEDS ORDERED: methylPREDNISolone 125 MG* 2 ML VIAL IV ONE (08:34)
[2018-11-24] MEDS ORDERED: Magnesium Sulfate 1 GM IV* 1 GM/100 ML BAG IV ONE (08:34)
[2018-11-24] MEDS ORDERED: Diltiazem IV push/loading dose 5 MG/ML 5 ML vial (25 mg) IV SLOW PU ONE (08:50)
[2018-11-24] MEDS ORDERED: Albuterol/Ipratropium NEB.SOL* Albuterol 2.5 MG/Ipratropium 0.5 MG 3 ML INH ONE (08:53)
[2018-11-24] MEDS ORDERED: Albuterol/Ipratropium NEB.SOL* Albuterol 2.5 MG/Ipratropium 0.5 MG 3 ML ONE (08:54)
[2018-11-24 09:05] LABS: ABS Eosinophils 0.1 10^3/ul (0-0.6); ABS Lymphocytes 0.8 10^3/ul (1.0-4.8); ABS Monocytes 0.7 10^3/ul (0-0.8); ABS Neutrophils 4.9 10^3/ul (1.5-7.7); Eosinophil % 1.6 %; Hematocrit 37 % (42-52); Hemoglobin 12.7 g/dL (14.0-18.0); Lymphocyte % 12.6 %; Mean Corpuscular HGB Conc 34 g/dL (31-36); Mean Corpuscular Hemoglobin 31 pg (27-31); Mean Corpuscular Volume 89 fL (80-94); Mean Platelet Volume 7.4 fL (7.4-10.4); Nucleated Red Blood Cells % 0.1; Platelet Count 238 10^3/uL (150-450); Red Blood Count 4.15 10^6 /uL (4.18-5.48); Red Cell Distribution Width 16 % (10.5-15); White Blood Count 6.6 10^3/uL (3.5-10.8)
[2018-11-24 09:12] LABS: INR 1.11 (0.82-1.09)
[2018-11-24 09:16] LABS: ALT 13 U/L (7-52); AST 17 U/L (13-39); Albumin 3.9 g/dL (3.2-5.2); Albumin/Globulin Ratio 1.1 (1-3); Alkaline Phosphatase 114 U/L (34-104); Anion Gap 7 mmol/L (2-11); BUN/Creatinine Ratio 11.8 (8-20); Blood Urea Nitrogen 10 mg/dL (6-24); C Reactive Protein 32.52 mg/L (<8.01); CO2 Carbon Dioxide 25 mmol/L (22-32); Chloride 92 mmol/L (101-111); EGFR African American 110.2 (>60); Globulin 3.6 g/dL (2-4); Glucose 95 mg/dL (70-100); Potassium 4.3 mmol/L (3.5-5.0); Sodium 124 mmol/L (135-145); Total Protein 7.5 g/dL (6.4-8.9)
[2018-11-24 09:19] LABS: Troponin I 0.01 ng/mL (<0.04)
--- OUTSIDE RECORDS SUMMARY | 2018-11-24 09:22 | XMS REPORT | Continuity of Care Document ---
:1955 External Reference #:[id number] Author Name Autumn Urbina MD Address [address] [place] [address] Care Team Providers Name Role Phone Autumn Urbina MD Care Team Information Bottom Stainer Unavailable Autumn Urbina MD Primary Care Physician Unavailable Payers Date Identification Numbers Payment Provider Subscriber Effective: 2010 Policy Number: [id number] Medicare [facility] Gilda Charles Dana PayID: [id number] [address] [place] [address] Effective: 2014 Policy Number: [id number] Medicaid [place] Gilda Charles Dana PayID: [id number] [address] [facility] [place] [address] Advance Directives Description No Information Available Problems Active Problems Provider Date Peripheral vascular disease Avtar Ring M.D. Onset: 01/20/2015 Atrial fibrillation Kellee Bangura M.D. Onset: 03/07/2016 Replacement of mitral valve Kellee Bangura M.D. Onset: 03/07/2016 Cardiac pacemaker in situ Kellee Bangura M.D. Onset: 03/07/2016 Bipolar disorder Kellee Bangura M.D. Onset: 03/07/2016 Chronic obstructive lung disease Kellee Bangura M.D. Onset: 07/14/2015 Generalized convulsive epilepsy Avtar Ring M.D. Onset: 03/07/2016 Alcohol dependence Kellee Bangura M.D. Onset: 03/07/2016 Smoker Kellee Bangura M.D. Onset: 03/07/2016 Essential hypertension Kellee Bangura M.D. Onset: 10/26/2016 Atherosclerotic heart disease of [place] coronary Kellee Bangura M.D. Onset: artery without angina pectoris Paroxysmal atrial fibrillation Kellee Bangura M.D. Onset: 12/01/2016 Diverticulosis of colon without diverticulitis Kellee Bangura M.D. Onset: Idiopathic peripheral neuropathy Kellee Bangura M.D. Onset: 06/11/2017 Note: narcotic contract 06/11/17 Family History Date [...] Alerts Description No Known Drug Allergies Medications Active Medications SIG Qnty Indications Ordering Provider Date Hydrocodone-Acetaminop 1 tab by mouth 21tabs S01.01xD Autumn Schafer 11/13/2018 hen every 8 hours as MD Debbie 10-325mg Tablets needed Metoprolol Succinate 2 by mouth every 30tabs Autumn Schafer 08/29/2018 ER day MD Debbie 25mg Tablets ER 24HR Tamsulosin HCL 1 by mouth every 30caps E87.1 Autumn TBriseida 08/22/2018 0.4mg day MD Debbie Capsules Lorazepam take one by 60tabs F41.1 Autumn Schafer 11/02/2017 2mg Tablets mouth two times MD Debbie a day Hydrocodone-Acetaminop 1 by mouth every 21tabs Casandra Jalyn 08/22/2017 hen 8 hours as JEFFREY Michelle 5-325mg Tablets needed Zoloft 2 tab by mouth 60tabs Autumn Schafer 06/28/2017 100mg Tablets every day MD Debbie Cilostazol 1 tab twice day 60tabs I73.9 Autumn Schafer 05/07/2017 100mg Tablets MD Debbie Breo Ellipta 1 puff every day 1units Avtar Ring M.D. 03/11/2015 100-25mcg/Inh Aerosol Divalproex Sodium ER Take Three 90tabs Autumn Keating Tablets By Mouth Radames Lou 500mg Tablets ER 24HR Once Daily In The Morning Diltiazem CD 1 by mouth every Unknown 120mg Caps day ER 24HR Levetiracetam take one tablet Unknown 750mg by mouth tid a Tablets day Incruse Ellipta 1 puff daily Unknown 62.5mcg/Inh Aerosol Digoxin 150mcg 1 po qd Unknown History Medications Digoxin 1 by mouth every Autumn Schafer 11/13/2018 - 250mcg day MD Debbie 11/13/2018 Tablets Ondansetron HCL Autumn Schafer 09/28/2017 - 8mg MD Debbie 01/09/2018 Tablets Lunesta one nightly as 14tabs Autumn Schafer 09/20/2017 - 2mg Tablets needed for MD Debbie 10/12/2017 insomnia Levetiracetam 1 po bid. 60tabs Autumn Schafer 07/30/2017 - 500mg MD Debbie 10/12/2017 Tablets Gabapentin 1 tab by mouth 60tabs Kellee Bangura M.D. 07/23/2017 - 600mg twice a day 01/16/2018 Tablets Hydrocodone-Acetamin take 1q 4-5 hours 30tabs Kellee Bangura M.D. 2016 - ophen as needed as 06/11/2017 10-325mg needed for pain Tablets Diclofenac Sodium apply 2-3 cm strip 100gm Kellee Bangura M.D. 06/11/2017 - 1% to neck three 11/12/2018 Gel times a day as needed Oxycodone HCL 1 tab by mouth q6 120tabs I73.9 Kellee Bangura M.D. 2016 - 5mg hours as needed 07/24/2017 Tablets Aspir-81 1 by mouth every 90tabs Kellee Bangura M.D. 06/11/2017 - 81mg Tablets day 11/12/2018 DR Michael Stark 1 tab q4-6 hours 120caps F31.9 Autumn Schafer 05/07/2017 - as needed MD Debbie 11/12/2018 50mg Capsules Hydrocodone-Acetamin 1 tab by mouth 12tabs I73.9 Kellee Bangura M.D. 2016 - ophen every 8 hours as 06/07/2017 10-325mg needed Tablets Hydrocodone-Acetamin 1 by mouth every 8 30tabs Kellee Bangura M.D. 2016 - ophen hours as needed 05/07/2017 5-325mg Tablets Hydrocodone take one by mouth 20tabs Kellee Bangura M.D. 04/20/2017 - Bitartrate/Acetamino up to 4 times per 04/25/2017 phen day 2.5-325mg Tablets Gralise 1 tab by mouth 60tabs Kellee Bangura M.D. 12/01/2016 - 600mg Tablets twice a day 07/23/2017 Quetiapine Fumarate 1 tab at bedtime 30tabs F31.9 Kellee Bangura M.D. 03/07 - 04/18/2016 100mg Tablets Advair HFA take 2 inhalations 1units J44.9 Kellee Bangura M.D. 03/07/2016 - twice daily as 11/02/2017 230-21mcg/Act directed Aerosol Zolpidem Tartrate 1 tab by mouth 15tabs Kellee Bangura M.D. 02/22/2016 - every night as 04/18/2016 10mg Tablets needed Ambien 1 tab by mouth 15tabs Kellee Bangura M.D. 02/07/2016 - 5mg Tablets every night as 02/22/2016 needed Ciclopirox Olamine apply to affected 30gm [facility], 12/21/2015 - area on scrotum qd Afnp-C 01/20/2016 0.77% Cream Betamethasone apply sparingly to 30gm [facility], 12/21/2015 - Valerate affected area qd Afnp-C 01/04/2016 0.1% Cream Atrovent HFA 1 puff four times 12.900g Kellee Bangura M.D. 08/17/2015 - a day m 03/07/2016 17mcg/Act Aerosol Spiriva Respimat 2 puff every day 1units Avtar Ring M.D. 03/11/2015 - 11/13/2018 2.5mcg/Act Aerosol Spiriva Handihaler inhale contents 1caps Avtar Ring M.D. 03/03/2015 - one of capsule by 03/11/2015 18mcg Capsules mouth daily Ketoconazole apply to affected 60units 110.4 Avtar Ring M.D. 02/18/2015 - 2% Cream area every day 03/07/2016 Clotrimazole/Betamet apply to affected 60units 110.4 Avtar Ring M.D. 02/17 - hasone Dipropionate area twice a day 02/18/2015 1-0.05% Cream Depakote 2 tabs po qhs 90tabs Avtar Ring M.D. 12/02/2014 - 500mg 03/07/[address] Vieyra 2 tabs po qd am 60caps Avtar Ring M.D. 12/02/2014 - 400mg 03/07/2016 Capsules Aspirin Ec Lo-Dose 1 by mouth every Avtar Ring M.D. 12/02/2014 - day 04/18/[address] Braun 2 tab po qd 60tabs Avtar Ring M.D. 12/02/2014 - 500mg Tablets 07/24/2017 Zoloft 1 by mouth bid 30tabs Avtar Ring M.D. 12/02/2014 - 100mg Tablets 03/07/2016 Levothyroxine Sodium 1 by mouth every Unknown - day 11/12/2018 25mcg Tablets Metoprolol Succinate 1 by mouth every Unknown - ER day 08/22/2018 50mg Tablets ER 24HR Metoprolol Succinate 1 by mouth every Unknown - ER day 08/29/2018 100mg Tablets ER 24HR Atorvastatin Calcium 1 by mouth every Unknown - day 11/12/2018 20mg Tablets Gabapentin 1 by mouth three Unknown - 300mg times a day 12/01/2016 Capsules Gabapentin 4 po bid Unknown - 100mg 08/10/2016 Capsules Zoloft 1 by mouth every 90tabs Kellee Bangura M.D. - 100mg Tablets day 06/28/2017 Xarelto 1 by mouth every Unknown - 20mg Tablets day 06/11/2017 Metoprolol Tartrate 1 by mouth daily Unknown - 10/19/2016 25mg Tablets Sertraline HCL 1 by mouth every Unknown - 100mg day 04/18/2016 Tablets Metoprolol Tartrate 1 by mouth twice a Unknown - day 03/07/2016 50mg Tablets Digoxin 1 tab po qd Unknown - 250mcg 11/13/2018 Tablets Metoprolol Tartrate 1 po qd am Unknown - 03/07/2016 100mg Tablets Warfarin Sodium 1 tab po qd or as Unknown - 3mg directed 03/22/2016 Tablets Oxycodone-Acetaminop 1 po every 4 hours 180tabs Unknown - hen as needed for pain 03/07/2016 5-325mg Tablets Seroquel 1-2 by mouth every Unknown - 200mg day 03/07/2016 Tablets Benadryl 1 or 2 as needed Unknown - 25mg 03/07/2016 Capsules Advair HFA take 2 inhalations 1units Avtar Ring M.D. - twice daily as 12/21/2015 230-21mcg/Act directed Aerosol Immunizations CPT Code Status Date Vaccine Lot # [id number] Given 04/05/2018 Pneumococcal Immunization [id number] Given 04/05/2018 Influenza Vac, Quadrivalent, Slit Virus, Im [id number] Given 05/18/2016 Influenza Vac, Quadrivalent, Slit Virus, Im [id number] Given 05/31/2015 Influenza Vac, Quadrivalent, Slit Virus, Im [id number] Given 05/05/2014 Pneumococcal Conjugate Vacc-13 [id number] Given 03/25/2012 DO Not Use Split Influenza Virus Vaccine Vital Signs Date Vital Result Comment 11/13/2018 11:35am BP Systolic 108 mmHg BP Diastolic 60 mmHg Heart Rate 60 /min Body Temperature 98.1 F Respiratory Rate 16 /min Height 68.5 inches 5'8.50" Weight 169.00 lb BMI (Body Mass Index) 25.3 kg/m2 10/23/2018 3:47pm BP Systolic 126 mmHg BP Diastolic 80 mmHg Heart Rate 66 /min Body Temperature 98.6 F Respiratory Rate 16 /min Weight 169.00 lb 10/09/2018 3:32pm BP Systolic 120 mmHg BP Diastolic 62 mmHg Heart Rate 76 /min Body Temperature 97.5 F Respiratory Rate 18 /min Weight 168.00 lb 08/22/2018 1:33pm BP Systolic 118 mmHg BP [...] Test Result H/L Range Note Laboratory test 11/04/2018 [facility] Digoxin, 0.8 ng/mL 0.5-0.9 1, 2 finding [address] [place] [address] (647)- - Basic Metabolic 10/23/2018 [facility](fma) Sodium 128 mEq/L Low 134- 149 3 Profile Potassium 4.7 mEq/L 3.6-5.5 Chloride 91 mEq/L Low 94-112 4 Carbon Dioxide 25 mEq/L 21-32 Glucose 108 mg/dL High 70-105 5 BUN 10 mg/dL 6-26 Creatinine 0.9 mg/dL 0.6-1.4 BUN/Creat Ratio 11.1 CALC 8.0-36.0 Calcium 9.2 mg/dL 8.6-10.2 GFR Non- >60 ml/min/1.73m^ >=60 GFR >60 ml/min/1.73m^ >=60 Laboratory test 10/23/2018 [facility](fma) Magnesium, Serum 1.7 mEq/L 1.2-2.1 finding Laboratory test 10/23/2018 [facility] Digoxin, Serum 1.8 ng/mL High 0.5-0.9 6 finding [facility] [place] [address] (764)- - CBC Auto Diff 09/24/2018 [facility] White Blood 6.1 N 3.5-10.8 Count 10^3/uL Red Blood Count 4.28 10^6/uL N 4.18-5.48 Hemoglobin 13.1 g/dL Low 14.0-18.0 Hematocrit 38 % N 36-46 Mean Corpuscular Volume 89 fL N 80-94 Mean Corpuscular Hemoglobin 31 pg N 27-31 Mean Corpuscular HGB Conc 34 g/dL N 31-36 Red Cell Distribution Width 15 % N 10.5-15 Platelet Count 273 10^3/uL N 150-450 Mean Platelet Volume 7.1 fL Low 7.4-10.4 Abs Neutrophils 3.9 10^3/uL N 1.5-7.7 Abs Lymphocytes 1.1 10^3/uL N 1.0-4.8 Abs Monocytes 0.8 10^3/uL N 0-0.8 Abs Eosinophils 0.4 10^3/uL N 0-0.6 Abs Basophils 0 10^3/uL N 0-0.2 Abs Nucleated RBC 0 10^3/uL Granulocyte % 63.1 % Lymphocyte % 18.0 % Monocyte % 12.4 % Eosinophil % 5.9 % Basophil % 0.6 % Nucleated Red Blood Cells % 0 Inr/Protime 09/24/2018 [facility] In[place] 0.99 N 0.77-1.02 Laboratory test finding 09/24/2018 [facility] Partial Thrombo 27.8 seconds N 26.0-36.3 Time PTT Comp Metabolic Panel 09/24/2018 [facility] Sodium 128 mmol/L Low 135-145 Potassium 4.1 mmol/L N 3.5-5.0 Chloride 95 mmol/L Low 101-111 Co2 Carbon Dioxide 23 mmol/L N 22-32 Anion Gap 10 mmol/L N 2-11 Glucose 88 mg/dL N 70-100 Blood Urea Nitrogen 16 mg/dL N 6-24 Creatinine 0.99 mg/dL N 0.67-1.17 BUN/Creatinine Ratio 16.2 N 8-20 Calcium 8.9 mg/dL N 8.6-10.3 Total Protein 7.0 g/dL N 6.4-8.9 Albumin 3.8 g/dL N 3.2-5.2 Globulin 3.2 g/dL N 2-4 Albumin/Globulin Ratio 1.2 N 1-3 Total Bilirubin 0.40 mg/dL N 0.2-1.0 Alkaline Phosphatase 128 U/L High 34-104 Alt 15 U/L N 7-52 Ast 25 U/L N 13-39 Egfr Non- 76.3 >60 Egfr 92.4 >60 7 Laboratory test finding 09/24/2018 [facility] Magnesium 1.7 mg/dL Low 1.9-2.7 Alcohol < 10 mg/dL N <10 Troponin I 0.01 ng/mL <0.04 8 Digoxin 1.5 ng/ml N 0.8-2.0 TSH (Thyroid Stim Horm) 7.65 mcIU/mL High 0.34-5.60 Basic Metabolic Profile 08/22/2018 [facility](fma) Sodium 129 mEq/L Low 134-149 9 Potassium 5.0 mEq/L 3.6-5.5 Chloride 87 mEq/L Low 94-112 10 Carbon Dioxide 22 mEq/L 21-32 Glucose 82 mg/dL 70-105 BUN 12 mg/dL 6-26 Creatinine 0.9 mg/dL 0.6-1.4 BUN/Creat Ratio 13.3 CALC 8.0-36.0 Calcium 8.9 mg/dL 8.6-10.2 GFR Non- >60 ml/min/1.73m^ >=60 GFR >60 ml/min/1.73m^ >=60 Laboratory test 08/22/2018 [facility] Digoxin, Serum 0.7 ng/mL 0.5-0.9 , 12 finding [address] [place] [address] (607)- - Laboratory test 08/15/2018 [facility] Magnesium 1.9 mg/dL N 1.9-2.7 finding Creatine Kinase(CK) 74 U/L N 10-223 C Reactive Protein 44.07 mg/L High <8.01 TSH (Thyroid Stim Horm) 6.24 mcIU/mL High 0.34-5.60 Digoxin < 0.3 ng/ml Low 0.8-2.0 Alcohol < 10 mg/dL N <10 Comp Metabolic Panel 08/15/2018 [facility] Sodium 128 mmol/L Low 135-145 Potassium 3.5 [...] Egfr Non- 72.1 >60 Egfr 87.3 >60 13 Laboratory test 08/15/2018 [facility] Troponin I 0.01 ng/mL <0.04 14 finding Inr/Protime 08/15/2018 [facility] Inr 1.14 High 0.77-1.02 CBC Auto Diff 08/15/2018 [facility] White Blood Count 4.6 10^3/uL N 3.5-10.8 Red Blood Count 4.18 [...] % Nucleated Red Blood Cells % 0.3 Laboratory test 08/15/2018 [facility] Lactic Acid 3.2 mmol/L High 0.5-2.0 15 finding Laboratory test 08/15/2018 [facility] Ammonia 129 mcmol/L High 16-53 finding Laboratory test 06/18/2018 [facility] Levetiracetam 18.8 g/mL 16 finding (Keppra) Urine Culture And 06/18/2018 [facility] Urine Culture SEE RESULT 17 Sensitivities BELOW Laboratory test 06/18/2018 [facility] Magnesium 2.2 mg/dL N 1.9-2.7 finding Valproic Acid (Depakene) 81.0 g/mL N 50-100 Alcohol < 10 mg/dL N <10 Lactic Acid 7.6 mmol/L High 0.5-2.0 18 Comp Metabolic Panel 06/18/2018 [facility] Sodium 121 mmol/L Low 135-145 Potassium 4.6 [...] Egfr Non- 80.1 >60 Egfr 96.9 >60 19 Urinalysis Profile 06/18/2018 [facility] Urine Color Yellow Urine Appearance Cloudy Urine Specific [place] 1.011 N 1.010-1.030 Urine pH 6.0 N [...] Present Abnormal Absent CBC Auto Diff 06/18/2018 [facility] White Blood Count 5.9 10^3/uL N 3.5-10.8 [...] Red Blood Cells % 0.1 Inr/Protime 06/18/2018 [facility] Inr 0.93 N 0.77-1.02 Laboratory test 06/11/2018 [facility] Lab Test SEE ATTACHED finding (607)- - Laboratory test 06/11/2018 [facility] Valproic Acid 99.0 g/mL N 50-100 finding (Depakene) CBC Auto Diff 06/11/2018 [facility] White Blood 4.0 10^3/uL N 3.5-10.8 Count Red Blood Count 5.43 10^6/uL High 4.00-5.40 [...] % Nucleated Red Blood Cells % 0.6 Urinalysis Profile 06/11/2018 [facility] Urine Color Yessica Urine Appearance Clear Urine Specific [place] 1.014 N 1.010-1.030 Urine pH 5.0 N 5-9 Urine Urobilinogen Positive Abnormal Negative Urine Ketones Trace Abnormal Negative Urine Protein Negative Negative Urine Leukocytes Negative Negative Urine Blood Negative Negative Urine Nitrite Negative Negative Urine Bilirubin Negative Negative Urine Glucose Negative Negative Comp Metabolic Panel 06/11/2018 [facility] Potassium 4.7 mmol/L N 3.5-5.0 Chloride 83 [...] Egfr Non- 74.6 >60 Egfr 90.3 >60 20 Sodium 117 mmol/L Low 135-145 21 Anion Gap 9 mmol/L N 2-11 Laboratory test finding 06/11/2018 [facility] Acetaminophen < 15 g/mL 22 Alcohol < 10 mg/dL N <10 Salicylate < 2.50 mg/dL <30 TSH (Thyroid Stim Horm) 10.83 mcIU/mL High 0.34-5.60 Urine Drug SCR ED 06/11/2018 [facility] Barbiturates Urine None Detected None Detect & Pain Clinic Screen Benzodiazepine Urine Screen None Detected None Detect Urine Cannabinoids Screen Presumptive Posi <SEE NOTE> Abnormal None Detect 23 Urine Cocaine Screen None Detected None Detect Urine Opiates Screen None Detected None Detect Urine Phencyclidine Screen None Detected None Detect 24 Amphetamine Ur Screen None Detected None Detect Laboratory test finding 06/11/2018 [facility] Osmolality Urine 288 mOsm/kg N 100 -1150 Sodium Random Urine 19 mmol/L Cortisol 15.69 g/dL 25 Laboratory test finding 04/17/2018 [facility] Magnesium 1.9 mg/dL N 1.9-2.7 Creatine Kinase(CK) 188 U/L N 10-223 Troponin I 0.01 ng/mL <0.04 Alcohol < 10 mg/dL N <10 TSH (Thyroid Stim Horm) 5.08 mcIU/mL N 0.34-5.60 Comp Metabolic Panel 04/17/2018 [facility] Sodium 130 mmol/L Low 135-145 Chloride 98 [...] Egfr Non- 82.1 >60 Egfr 99.3 >60 26 Potassium 5.1 mmol/L High 3.5-5.0 Anion Gap 3 mmol/L N 2-11 Urinalysis Profile 04/17/2018 [facility] Urine Color Yellow Urine Appearance Clear Urine Specific [place] 1.011 N 1.010-1.030 Urine pH 6.0 N [...] Present Abnormal Absent Laboratory test finding 04/17/2018 [facility] Partial Thrombo 29.1 seconds N 26.0-36.3 Time PTT Inr/Protime 04/17/2018 [facility] Inr 0.99 N 0.77-1.02 Laboratory test finding 04/17/2018 [facility] Lactic Acid 1.6 mmol/L N 0.5-2.0 27 CBC Auto Diff 04/17/2018 [facility] White Blood Count 3.8 10^3/uL N 3.5-10.8 [...] Blood Cells % 0.1 Laboratory test 04/17/2018 [facility] Levetiracetam 60.1 g/mL Abnormal 28 finding (Keppra) Urine Drug SCR 04/17/2018 [facility] Amphetamine Ur None Detected None Detect ED & Pain Clinic Screen Barbiturates Urine Screen None Detected None Detect Benzodiazepine Urine Screen None Detected None Detect Urine Cannabinoids Screen Presumptive Posi <SEE NOTE> Abnormal None Detect 29 Urine Cocaine Screen None Detected None Detect Urine Opiates Screen None Detected None Detect Urine Phencyclidine Screen None Detected None Detect 30 Laboratory test finding 01/31/2018 [facility] Digoxin 0.5 ng/ml Low 0.8-2.0 31 Comp Metabolic Panel 01/31/2018 [facility] Sodium 128 mmol/L Low 135-145 Potassium 4.4 [...] Egfr Non- 54.0 >60 Egfr 65.4 >60 32 CBC Auto Diff 01/31/2018 [facility] White Blood Count 4.6 10^3/uL N 3.5-10.8 [...] 0-2 Nucleated Red Blood Cells % 0.2 CBC Auto Diff 01/08/2018 [facility] White Blood Count 5.0 10^3/uL N 3.5-10.8 [...] Blood Cells % 0.1 Urinalysis Profile 01/08/2018 [facility] Urine Color Straw Urine Appearance Clear Urine Specific [place] 1.004 Low 1.010-1.030 Urine pH 6.0 N 5-9 Urine Urobilinogen Negative Negative Urine Ketones Negative Negative Urine Protein Negative Negative Urine Leukocytes Negative Negative Urine Blood Negative Negative Urine Nitrite Negative Negative Urine Bilirubin Negative Negative Urine Glucose Negative Negative Inr/Protime 01/08/2018 [facility] Inr 0.94 N 0.77-1.02 Comp Metabolic Panel 01/08/2018 [facility] Sodium 125 mmol/L Low 135-145 Potassium 4.3 [...] Egfr Non- 79.4 >60 Egfr 96.0 >60 33 Laboratory test finding 01/08/2018 [facility] Acetaminophen < 15 g/mL 34 Alcohol 43 mg/dL High <10 Salicylate < 2.50 mg/dL <30 TSH (Thyroid Stim Horm) 2.78 mcIU/mL N 0.34-5.60 Lipid Profile (Trig/Chol/HDL) 01/08/2018 [facility] Triglycerides 74 mg/dL 35 Cholesterol 184 mg/dL 36 HDL Cholesterol 62.5 mg/dL 37 LDL Cholesterol 107 mg/dL 38 Urine Drug SCR ED 01/08/2018 [facility] Amphetamine Ur Screen None Detected None Detect & Pain Clinic Barbiturates Urine Screen None Detected None Detect Benzodiazepine Urine Screen None Detected None Detect Urine Cannabinoids Screen Presumptive Posi <SEE NOTE> Abnormal None Detect 39 Urine Cocaine Screen None Detected None Detect Urine Opiates Screen None Detected None Detect Urine Phencyclidine Screen None Detected None Detect 40 Laboratory test 08/31/2017 [facility] Medicine Brain Natural 299 pg/mL High < 100 finding (607)- - Peptide CBC Electronic 08/31/2017 [facility](a) WBC 5.8 x10^3/UL 4.0-10.0 Fma RBC 4.98 x10^6/UL 3.93-6.00 HGB 15.1 g/dL 12.0-17.0 HCT 43 % 35-50 MCV 86.5 fL 80.0-95.0 MCH 30.3 pg 25.6-32.2 MCHC 35.0 g/dL 32.2-36.0 RDW-CV 14.9 % High 11.6-14.4 PLT 240 x10^3/UL 163-400 MPV 9.9 fL 9.4-12.4 Garret# 3.23 x10^3/UL 1.56-6.13 Lymph# 1.58 x10^3/UL 1.18-3.74 Crook# 0.62 x10^3/UL 0.24-0.82 Eos # 0.3 x10^3/UL 0.0-0.5 Baso # 0.03 x10^3/UL 0.01-0.08 Garret% 56.1 % 34.0-70.0 Lymph % 27.4 % 20.0-52.0 Crook% 10.7 % 5.0-12.0 Eos% 5.0 % 0.7-7.0 Baso% 0.5 % 0.1-1.2 Comprehensive Metabolic 08/31/2017 [facility]) Sodium 137 mEq/L 134-149 Prof Potassium 5.5 [...] >60 ml/min/1.73m^ >=60 Laboratory test 08/31/2017 [facility]) Magnesium, 1.9 mEq/L 1.2- 2.1 finding Serum Laboratory test 08/31/2017 [facility] Digoxin, Serum 1.2 ng/mL High 0.5-0.9 41, 42 finding [address] [place] [address] (830)- - Urinalysis 08/21/2017 [facility] Urine Color Yellow Profile Urine Appearance Cloudy Urine Specific [place] 1.011 N 1.010-1.030 Urine pH 5.0 N [...] Present Abnormal Absent Laboratory test finding 08/21/2017 [facility] Inr/Protime 0.91 N 0.77-1.02 CBC Auto Diff 08/21/2017 [facility] White Blood Count 6.5 10^3/uL N 3.5-10.8 [...] Blood Cells % 0.2 Comp Metabolic Panel 08/21/2017 [facility] Sodium 127 mmol/L Low 133-145 Chloride 96 [...] Egfr Non- 90.1 >60 Egfr 115.9 >60 43 Potassium 5.1 mmol/L High 3.5-5.0 Anion Gap 5 mmol/L N 2-11 Laboratory test finding 08/21/2017 [facility] Magnesium 2.1 mg/dL N 1.9-2.7 Creatine Kinase(CK) 68 U/L N 10-223 Alcohol < 10 mg/dL N <10 TSH (Thyroid Stim Horm) 6.17 mcIU/mL High 0.34-5.60 Levetiracetam (Keppra) <2.0 g/mL Abnormal 44 Laboratory test 08/16/2017 [facility] [place] See Attached finding CBC Auto Diff 08/16/2017 [facility] White Blood 7.5 10^3/uL N 3.5-10.8 Count Red Blood Count 5.09 10^6/uL N 4.0-5.4 [...] Cells % 0.1 Comp Metabolic Panel 08/16/2017 [facility] Sodium 126 mmol/L Low 133-145 Potassium 4.6 [...] Egfr Non- 74.9 >60 Egfr 96.3 >60 45 Laboratory test finding 08/16/2017 [facility] Digoxin 2.0 [...] Egfr Non- 75.7 >60 Egfr 97.4 >60 46 Laboratory test 07/31/2017 [facility] Lactic Acid 5.7 mmol/L High 0.5-2.0 47 finding Inr/Protime 07/31/2017 [facility] Inr 0.94 N 0.77-1.02 CBC Auto Diff 07/31/2017 [facility] White Blood Count 5.5 10^3/uL N 3.5-10.8 [...] Red Blood Cells % 0 Comprehensive Metabolic 07/25/2017 [facility]) Sodium 133 mEq/L Low 134-149 48 Prof Potassium 4.6 mEq/L 3.6-5.5 Chloride 102 mEq/L 94-112 Carbon Dioxide 26 mEq/L 21-32 Glucose 118 mg/dL High 70-105 49 BUN 12 mg/dL 6-26 Creatinine 0.8 mg/dL [...] 07/04/2017 [facility] Ammonia, Plasma 63 g/dL 27-102 50 finding [address] [place] [address] (607)- - Urine Drug SCR 07/03/2017 [facility] Amphetamine Ur None None ED & Pain Screen Detected Detect Clinic Barbiturates Urine Screen None Detected None Detect Benzodiazepine Urine Screen None Detected None Detect Urine Cannabinoids Screen Presumptive Posi <SEE NOTE> Abnormal None Detect 51 Urine Cocaine Screen None Detected None Detect Urine Opiates Screen Presumptive Posi <SEE NOTE> Abnormal None Detect 52 Urine Phencyclidine Screen None Detected None Detect 53 Laboratory test finding 07/03/2017 [facility] Erythrocyte Sed Rate 12 mm/Hr N 0- 20 CBC Auto Diff 07/03/2017 [facility] White Blood Count 4.0 10^3/uL N 3.5-10.8 [...] Cells % 0.5 Laboratory test finding 07/03/2017 [facility] C Reactive Protein 8.09 mg/L High < 5.00 54 Alcohol < 10 mg/dL N <10 Comp Metabolic Panel 07/03/2017 [facility] Sodium 121 mmol/L Low 133-145 Potassium 4.0 [...] Egfr Non- 91.3 >60 Egfr 117.5 >60 55 Laboratory test 07/03/2017 [facility] [place] Lactic Acid 0.9 mmol/L N 0.5-2.0 56 finding Inr/Protime 07/03/2017 [facility] [place] Inr 1.04 High 0.77-1.02 57 Laboratory test 07/03/2017 [facility] [place] Carbon Monoxide 5.4 % High <4.0 finding Laboratory test 06/07/2017 [facility] [place]rine Culture And SEE RESULT 58 finding Sensitivities BELOW Urine Drug SCR ED 06/07/2017 [facility] [place] Amphetamine Ur None Detected None Detect [facility] Screen Barbiturates Urine Screen None Detected None Detect Benzodiazepine Urine Screen None Detected None Detect Urine Cannabinoids Screen Presumptive Posi <SEE NOTE> Abnormal None Detect 59 Urine Cocaine Screen None Detected None Detect Urine Opiates Screen Presumptive Posi <SEE NOTE> Abnormal None Detect 60 Urine Phencyclidine Screen None Detected None Detect 61 Urinalysis Profile 06/07/2017 [facility] Urine Color Yellow Urine Appearance Clear Urine Specific [place] 1.012 N 1.010-1.030 Urine pH 5.0 N 5-9 Urine Urobilinogen Negative Negative Urine Ketones Negative Negative Urine Protein Negative Negative Urine Leukocytes Negative Negative Urine Blood Negative Negative Urine Nitrite Negative Negative Urine Bilirubin Negative Negative Urine Glucose Negative Negative Manual Differential 06/06/2017 [facility] Immature Granulocytes 7 % N 0-9 Neutrophil % 53 % N 38-83 Band % 5 % N 0-8 Lymphocytes % 28 % N 25-47 Monocytes % 9 % N 0-13 Eosinophils % 2 % N 0-6 Basophil % 1 % N 0-2 Myelocytes % 2 % High 0-1 RBC Morphology Normal Normal Polychromasia 1+ Laboratory test finding 06/06/2017 [facility] Acetaminophen < 15 g/mL 62 Alcohol 35 mg/dL High <10 Salicylate < 2.50 mg/dL <30 TSH (Thyroid Stim Horm) 8.16 mcIU/mL High 0.34-5.60 Comp Metabolic Panel 06/06/2017 [facility] Sodium 130 mmol/L Low 133-145 Potassium 4.6 [...] Egfr Non- 55.0 >60 Egfr 70.7 >60 63 Inr/Protime 06/06/2017 [facility] Inr 1.06 N 0.89-1.11 CBC Auto Diff 06/06/2017 [facility] White Blood Count 5.6 10^3/uL N 3.5-10.8 [...] Red Blood Cells % 0.1 Laboratory test 03/26/2017 [facility] Surgical SEE RESULT 64 finding Interface Order BELOW Complete Blood 01/08/2017 [facility]) WBC 6.5 x10^3/UL 3.6-9.6 Count RBC 4.65 x10^6/UL 3.90-5.70 HGB 16.0 g/dL 12.1-17.2 HCT 45 % 36-50 MCV 97.0 fL 82.2-97.4 MCH 34.4 pg High 27.6-33.3 MCHC 35.3 g/dL 33.0-35.5 RDW 13.8 % High 11.6-13.7 PLT 206 x10^3/UL 150-400 MPV 7.8 fL 7.4-10.4 Gran # 4.2 x10^3/UL 1.5-7.2 Lymph# 1.8 x10^3/UL 0.7-4.9 Crook# 0.5 x10^3/UL 0.1-0.9 Gran % 63.4 % 42.2-75.2 Lymph % 28.6 % 20.5-51.1 Crook% 8.0 % 1.7-9.3 PT And PTT 01/08/2017 [facility] Inr 1.2 65, 66 [address] [place] [address] (607)- - Prothrombin Time 12.7 seconds High 9.6-11.5 aPTT 33.3 seconds High 25.0-31.3 Comprehensive Metabolic 01/08/2017 [facility] Sodium 135 mEq/L 134-149 Prof Potassium 4.7 [...] >60 ml/min/1.73m^ >=60 GFR >60 ml/min/1.73m^ >=60 CBC Electronic (a) 12/21/2016 [facility] WBC 9.4 3.6-9.6 (607)- - RBC 4.27 3.90-5.70 Hemoglobin (Fma/CMC/CTX) 14.6 g/dL 12.1 - 17.2 Hematocrit (Fma/CMC/CTX) 42.1 % 36.1 - 50.3 Platelets 137 10^3/ul Low 150-400 67 Lymph% 14.9 % Low 17.0-48.0 Mixed% 6.1 Neutrophils % 79.0 Mean Corpuscular Vol 99 High 82.2-97.4 Mean Corpuscular Hemoglobin 34.1 High 27.6-33.3 Mean Corpuscular Hemo Concen 34.6 32.0-36.0 RDW 13.9 High 11.6-13.7 Mean Platelet Volume 7.8 5.5-11.0 Comprehensive Metabolic 12/21/2016 [facility]) Sodium 132 mEq/L Low 134-149 68 Prof Potassium 4.8 mEq/L 3.6-5.5 Chloride 93 [...] 5-34 Total Bilirubin 2.1 mg/dL High 0.2-1.3 69 GFR Non- >60 ml/min/1.73m^ >=60 GFR >60 ml/min/1.73m^ >=60 Total And 12/21/2016 [facility]) Total Bilirubin 2.1 mg/dL High 0.2-1.3 70 Direct Bili Direct Bilirubn 0.9 mg/dL High 0.0-0.6 Indirect Bilirubin 1.20 mg/dL High 0.10-1.00 PT And PTT 12/21/2016 [facility] Inr 1.4 71, 72 [address] [place] [address] (093)- - Prothrombin Time 14.6 seconds High 9.6-11.5 aPTT 40.2 seconds High 25.0-31.3 Comprehensive Metabolic 12/01/2016 [facility]) Sodium 136 mEq/L 134-149 Prof Potassium 4.8 [...] ml/min/1.73m^ >=60 Laboratory test finding 12/01/2016 [facility]) TSH 3.77 mIU/L 0.50-6.00 Free T4 0.84 ng/dL 0.75-1.54 PSA 4.7 ng/mL High 0.0-4.0 73 Complete Blood Count 12/01/2016 [facility]) WBC 6.1 x10^3/UL 3.6 -9.6 RBC 4.58 x10^6/UL 3.90-5.70 HGB 15.4 g/dL 12.1-17.2 HCT 45 % 36-50 MCV 98.0 fL High 82.2-97.4 MCH 33.6 pg High 27.6-33.3 MCHC 34.4 g/dL 33.0-35.5 RDW 14.6 % High 11.6-13.7 PLT 193 x10^3/UL 150-400 MPV 6.7 fL Low 7.4-10.4 Gran # 4.2 x10^3/UL 1.5-7.2 Lymph# 1.4 x10^3/UL 0.7-4.9 Crook# 0.5 x10^3/UL 0.1-0.9 Gran % 67.4 % 42.2-75.2 Lymph % 22.9 % 20.5-51.1 Crook% 9.7 % High 1.7-9.3 Laboratory test 11/06/2016 [facility] Levetiracetam 29.5 ug/mL 10.0-40.0 74 finding [address] [facility] ([facility] [place] [address] (607)- - Digoxin, Serum 1.5 ng/mL High 0.5-0.9 75 Comprehensive Metabolic 11/06/2016 [facility]) Sodium 130 mEq/L Low 134-149 76 Prof Potassium 5.5 mEq/L 3.6-5.5 Chloride 94 [...] >60 ml/min/1.73m^ >=60 Lipid Profile 11/06/2016 [facility]) Cholesterol 248 mg/dL High 120-200 Triglycerides 73 mg/dL 30-200 HDL Cholesterol 128 mg/dL High 30-70 LDL (Calculated) 105 CALC 0-129 VLDL Cholesterol 15 mg/dL 0-50 HDL Risk Factor 1.9 CALC 0.0-4.4 Complete Blood Count 11/06/2016 [facility]) WBC 7.4 x10^3/UL 3.6 -9.6 RBC 5.08 x10^6/UL 3.90-5.70 HGB 16.9 g/dL 12.1-17.2 HCT 49 % 36-50 MCV 96.0 fL 82.2-97.4 MCH 33.3 pg 27.6-33.3 MCHC 34.7 g/dL 33.0-35.5 RDW 14.3 % High 11.6-13.7 PLT 221 x10^3/UL 150-400 MPV 7.3 fL Low 7.4-10.4 Gran # 4.8 x10^3/UL 1.5-7.2 Lymph# 2.1 x10^3/UL 0.7-4.9 Crook# 0.5 x10^3/UL 0.1-0.9 Gran % 62.6 % 42.2-75.2 Lymph % 29.7 % 20.5-51.1 Crook% 7.7 % 1.7-9.3 Laboratory test 11/06/2016 [facility]) Free T4 1.32 ng/dL 0.75- 1.54 finding TSH 8.94 mIU/L High 0.50-6.00 77 PSA 5.8 ng/mL High 0.0-4.0 78 Laboratory test 10/15/2016 [facility] Lactic Acid 2.0 mmol/L N 0.5-2.0 79 finding Laboratory test 10/15/2016 [facility] Levetiracetam (Keppra) 12.8 g/mL N 80 finding Digitoxin Level 10/15/2016 [facility] Digitoxin None Detected N 10 - 30 ng/mL Digitoxin Reporting Limit 5.0 ng/mL N 81 Laboratory test 07/05/2016 [facility] Digoxin, Serum 1.4 ng/mL 0.9-2.0 82 finding [address] [place] [address] (607)- - Laboratory test 06/26/2016 [facility] Digitoxin <3.0 Low 10 - 25 83 finding [address] [facility] ng/[place] [address] (607)- - Laboratory test 06/26/2016 [facility] Hemoglobin A1c 5.1 % % 4.1- 5.7 finding (607)- - (Fma) Laboratory test 06/19/2016 [facility] Point of Care 112 mg/dL High 74-106 84 finding Glucose Comprehensive 06/14/2016 [facility]) Sodium 132 mEq/L Low 134- 149 85 Metabolic Prof Potassium 5.3 mEq/L 3.6-5.5 Chloride 94 mEq/L 94-112 Carbon Dioxide 28 mEq/L 21-32 Glucose 117 mg/dL High 70-105 86 BUN 11 mg/dL 6-26 Creatinine 0.8 mg/dL [...] >60 ml/min/1.73m^ >=60 Lipid Profile 06/14/2016 [facility]) Cholesterol 203 mg/dL High 120-200 Triglycerides 42 mg/dL 30-200 HDL Cholesterol 92 mg/dL High 30-70 LDL (Calculated) 103 CALC 0-129 VLDL Cholesterol 8 mg/dL 0-50 HDL Risk Factor 2.2 CALC 0.0-4.4 Laboratory test finding 06/14/2016 [facility]) CK 113 U/L 38- 174 Complete Blood Count 06/14/2016 [facility]) WBC 6.6 x10^3/UL 3.6 -9.6 RBC 4.60 x10^6/UL 3.90-5.70 HGB 14.0 g/dL 12.1-17.2 HCT 41 % 36-50 MCV 89.0 fL 82.2-97.4 MCH 30.5 pg 27.6-33.3 MCHC 34.2 g/dL 33.0-35.5 RDW 17.5 % High 11.6-13.7 PLT 190 x10^3/UL 150-400 MPV 6.7 fL Low 7.4-10.4 Gran # 4.4 x10^3/UL 1.5-7.2 Lymph# 1.7 x10^3/UL 0.7-4.9 Crook# 0.5 x10^3/UL 0.1-0.9 Gran % 65.4 % 42.2-75.2 Lymph % 26.8 % 20.5-51.1 Crook% 7.8 % 1.7-9.3 Laboratory test finding 06/14/2016 [facility]) TSH 1.93 mIU/L 0.50-6.00 87 Free T4 0.80 ng/dL 0.75-1.54 Laboratory test 03/21/2016 [facility] Inr (a) 1.7 Low 2.0-3.0 finding (607)- - Comprehensive 03/21/2016 [facility](a) Sodium 127 mEq/L Low 134- 149 88 Metabolic Prof Potassium 5.6 mEq/L High 3.6-5.5 89 Chloride 94 mEq/L 94-112 Carbon Dioxide 25 mEq/L 21-32 Glucose 88 mg/dL 70-105 BUN 11 mg/dL 6-26 Creatinine 0.8 mg/dL 0.6-1.4 BUN/Creat Ratio 13.8 CALC 8.0-36.0 Calcium 8.7 mg/dL 8.6-10.2 Total Protein 6.9 g/dL 6.4-8.3 Albumin 3.9 g/dL 3.8-5.5 Globulin 3.0 g/dL 2.0-4.8 A/G Ratio 1.3 CALC 0.6-2.3 Alk. Phosphatase 97 U/L High 22-95 90 Alt (SGPT) 15 U/L 7-35 Ast (Sgot) 20 U/L 5-34 Total Bilirubin 0.4 mg/dL 0.2-1.3 GFR Non- >60 ml/min/1.73m^ >=60 GFR >60 ml/min/1.73m^ >=60 Lipid Profile 03/21/2016 [facility](a) Cholesterol 181 mg/dL 120- 200 Triglycerides 54 mg/dL 30-200 HDL Cholesterol 52 mg/dL 30-70 LDL (Calculated) 118 CALC 0-129 VLDL Cholesterol 11 mg/dL 0-50 HDL Risk Factor 3.5 CALC 0.0-4.4 Laboratory test 03/21/2016 [facility](a) Magnesium, Serum 2.0 mEq/L 1.2-2.1 finding TSH 2.47 mIU/L 0.50-6.00 Complete Blood Count 03/21/2016 [facility](a) WBC 7.8 x10^3/UL 3.6 -9.6 RBC 4.57 x10^6/UL 3.90-5.70 HGB 14.2 g/dL 12.1-17.2 HCT 41 % 36-50 MCV 90.0 fL 82.2-97.4 MCH 31.1 pg 27.6-33.3 MCHC 34.5 g/dL 33.0-35.5 RDW 14.7 % High 11.6-13.7 PLT 307 x10^3/UL 150-400 MPV 7.1 fL Low 7.4-10.4 Gran # 5.1 x10^3/UL 1.5-7.2 Lymph# 2.0 x10^3/UL 0.7-4.9 Crook# 0.7 x10^3/UL 0.1-0.9 Gran % 64.0 % 42.2-75.2 Lymph % 26.1 % 20.5-51.1 Crook% 9.9 % High 1.7-9.3 Laboratory test 03/07/2016 [facility] Inr (Fma) 1.5 Low 2.0-3.0 finding (607)- - Laboratory test 03/01/2016 [facility] Inr (Fma) 3.2 High 2.0-3.0 finding (607)- - Laboratory test 02/24/2016 [facility] Potassium Redraw 4.8 mmol/L N 3.5-5.0 finding Ast Redraw 23 U/L N 13-39 Laboratory test 02/16/2016 [facility] Inr (Fma) 2.5 2.0-3.0 finding (607)- - Laboratory test 02/10/2016 [facility] Inr (Fma) 1.3 Low 2.0-3.0 finding (607)- - Laboratory test 02/01/2016 [facility] Troponin I 0.03 ng/mL High <0.03 91 finding Lactic Acid 2.2 mmol/L High 0.5-2.0 92 Magnesium 2.0 mg/dL N 1.9-2.7 Digoxin 0.9 ng/ml N 0.8-2.0 Valproic Acid (Depakene) 61.0 g/mL N 50-100 TSH (Thyroid Stim Horm) 4.34 mcIU/mL N 0.34-5.60 Levetiracetam (Keppra) 6.0 g/mL Abnormal 93 Comp Metabolic Panel 02/01/2016 [facility] Sodium 129 mmol/L Low 133-145 Potassium 4.0 [...] 75.4 N >60 Egfr 96.9 N >60 94 Laboratory test 02/01/2016 [facility] Partial Thrombo 37.7 seconds High 26.0- 36.3 finding Time PTT Inr/Protime 02/01/2016 [facility] Inr 1.60 High 0.89-1.11 CBC Auto Diff 02/01/2016 [facility] White Blood Count 5.5 10^3/uL N 3.5-10.8 Red Blood Count 4.07 10^6/uL N 4.0-5.4 [...] Nucleated Red Blood Cells % 0 N Laboratory test 02/01/2016 [facility] Troponin I 0.02 ng/mL N <0.03 95 finding Laboratory test 01/31/2016 [facility] Inr (Fma) 1.7 Low 2.0-3.0 finding (607)- - Laboratory test 01/24/2016 [facility] Inr (Fma) 1.9 Low 2.0-3.0 finding (607)- - Laboratory test 01/19/2016 [facility] Inr (Fma) 5.7 High 2.0-3.0 finding (607)- - Laboratory test 03/03/2015 [facility] HCV Antibody <0.1 0.0-0.9 96, 97 finding [address] [facility] s/[place] [address] (607)- - Panel [id number] 03/03/2015 [facility] HIV 1/O/2 <1.00 <1.00 98 Nys PT Only [address] [facility] [place] [address] Value (607)- - HIV 1/O/2 Abs, Qual Non Reactive Non Reactive Lipid Profile 01/21/2015 [facility] Cholesterol 183 mg/dL 120- 200 Triglycerides 56 mg/dL 30-200 HDL Cholesterol 54 mg/dL 30-70 LDL (Calculated) 118 CALC 0-129 VLDL Cholesterol 11 mg/dL 0-50 HDL Risk Factor 3.4 CALC 0.0-4.4 Comprehensive Metabolic 01/21/2015 [facility]) Sodium 129 mEq/L Low 134-149 99 Prof Potassium 4.6 mEq/L 3.6-5.5 Chloride 95 [...] 5-34 Total Bilirubin 0.5 mg/dL 0.2-1.3 1 1 serum pour off from red top tube 2 Concentrations above 2.0 ng/mL are generally considered toxic. Some overlap of toxic and non-toxic values have been reported. Detection Limit=0.4 ng/mL Therapeutic range is derived from 2013 ACCF/AHA Guidelines for the Management of Heart Failure. 3 consistent w/ previous results 4 consistent w/ previous results 5 NON-FASTING 6 Concentrations above 2.0 ng/mL are generally considered toxic. Some overlap of toxic and non-toxic values have been reported. Detection Limit=0.4 ng/mL Therapeutic range is derived from 2013 ACCF/AHA Guidelines for the Management of Heart Failure. 7 Because ethnic data is not always [...] 5 Kidney failure <15 (or dialysis) 8 Troponin-I testing on Plasma Separator Tubes (PST) has a known false positive rate of 0.20-0.40%. All positive troponins reflex immediate secondary confirmatory testing. 9 RESULTS VERIFIED BY REPEAT ANALYSIS 10 RESULTS VERIFIED BY REPEAT ANALYSIS 11 1serum pour off from red t op tube 12 Concentrations above 2.0 ng/mL are generally considered toxic. Some overlap of toxic and non-toxic values have been reported. Detection Limit=0.4 ng/mL Therapeutic range is derived from 2013 ACCF/AHA Guidelines for the Management of Heart Failure. 13 Because ethnic data is not always [...] 5 Kidney failure <15 (or dialysis) 14 Troponin-I testing on Plasma Separator Tubes (PST) has a known false positive rate of 0.20-0.40%. All positive troponins reflex immediate secondary confirmatory testing. 15 Critical Result LACT:3.2 Called to [id number] at: 15:00:04 by:[id number] Read back by:CLEM [facility] Severe Sepsis and Septic Shock Management Bundle Measure requires all lactic acids initially measuring >2.0 mmol/L be repeated. 16 REFERENCE VALUE 12.0 - 46.0 ADDITIONAL INFORMATION This test was developed and its performance characteristics determined by [facility] in a manner consistent with CLIA requirements. This test has not been cleared or approved by the U.S. Food and Drug Administration. Test Performed by: [facility] [address] [place] [address] 17 SEE RESULT BELOW Name: GILDA CORTEZ : [address]: Tony Bassett MD Acct: [id number] Unit: [id number] AGE: 63 Location: ED Re06/18/18 SEX: M Status: REG ER SPEC: [id number] SIENA: 06/18/[address]: Tony Bassett MD REQ: [id number] RECD: 06/18/18 STATUS: MICHAEL GANT DR: Autumn Urbina MD _ SOURCE: URINE SPDESC: ORDERED: Urine Culture Procedure Result Reported Site Urine Culture Final 06/19/18- 1606 ML No growth of clinically significant organisms * ML - Main Lab . END OF REPORT DEPARTMENT OF PATHOLOGY, [address] [place] [address] Alirio Hawkins M.D. Director [facility] # [id number] 18 Critical Result LACT:7.6 Called to AWILDA at: 14:55:47 by:[id number] Read back by:AWILDA [facility] Severe Sepsis and Septic Shock Management Bundle Measure requires all lactic acids initially measuring >2.0 mmol/L be repeated. 19 Because ethnic data is not always [...] 5 Kidney failure <15 (or dialysis) 21 Critical Result NA:117 Called to [id number] at: 11:22:44 by:[id number] Read back by:[id number] 22 Therapeutic concentration: <50 ug/mL Toxic concentration: >120 ug/mL 23 Presumptive Positive Presumptive positive results are unconfirmed. 24 The urine specimen was tested at the listed cutoffs: Drug class test level (ng/mL) Amphetamines 500 Barbiturates 200 Benzodiazepine metabolites 200 Cocaine metabolites 150 Cannabinoids 50 Opiates 300 Pcp 25 Specimen was received without chain of custody. Results should be used for medical purposes only. 25 AM 8.7-22.4 PM <10 26 Because ethnic data is not always [...] 5 Kidney failure <15 (or dialysis) 27 [facility] Severe Sepsis and Septic Shock Management Bundle Measure requires all lactic acids initially measuring >2.0 mmol/L be repeated. 28 REFERENCE VALUE 12.0 - 46.0 ADDITIONAL INFORMATION This test was developed and its performance characteristics determined by [facility] in a manner consistent with CLIA requirements. This test has not been cleared or approved by the U.S. Food and Drug Administration. Test Performed by: [facility] [address] [place] [address] 29 Presumptive Positive Presumptive positive results are unconfirmed. 30 The urine specimen was tested at the listed cutoffs: Drug class test level (ng/mL) Amphetamines 500 Barbiturates 200 Benzodiazepine metabolites 200 Cocaine metabolites 150 Cannabinoids 50 Opiates 300 Pcp 25 Specimen was received without chain of custody. Results should be used for medical purposes only. 31 Copy Result to: AUTUMN URBINA ([id number]) 32 Because ethnic data is not always [...] 5 Kidney failure <15 (or dialysis) 34 Therapeutic concentration: <50 ug/mL Toxic concentration: >120 ug/mL 35 Desirable: <150 Borderline High: 150-199 High: 200-499 Very High: >500 36 Desirable: <200 Borderline High: 200-239 High: >239 37 Low: <40 Desirable: 40-60 High: >60 38 Desirable: <100 Near Optimal: 100-129 Borderline High: 130-159 High: 160-189 Very High: >189 39 Presumptive Positive Presumptive positive results are unconfirmed. 40 The urine specimen was tested at the listed cutoffs: Drug class test level (ng/mL) Amphetamines 500 Barbiturates 200 Benzodiazepine metabolites 200 Cocaine metabolites 150 Cannabinoids 50 Opiates 300 Pcp 25 Specimen was received without chain of custody. Results should be used for medical purposes only. 41 1 sst 42 Concentrations above 2.0 ng/mL are generally considered toxic. Some overlap of toxic and non-toxic values have been reported. Detection Limit=0.4 ng/mL Therapeutic range is derived from 2013 ACCF/AHA Guidelines for the Management of Heart Failure. 43 Because ethnic data is not always [...] 5 Kidney failure <15 (or dialysis) 44 REFERENCE VALUE 12.0 - 46.0 ADDITIONAL INFORMATION This test was developed and its performance characteristics determined by [facility] in a manner consistent with CLIA requirements. This test has not been cleared or approved by the U.S. Food and Drug Administration. Test Performed by: [facility] [address] [place] [address] 45 Because ethnic data is not always readily [...] 15-29 5 Kidney failure <15 (or dialysis) 46 Because ethnic data is not always readily [...] 15-29 5 Kidney failure <15 (or dialysis) 47 Critical Result LACT:5.7 Called to [id number] at: 13:57:34 by:[id number] Read back by:[id number] [facility] Severe Sepsis and Septic Shock Management Bundle Measure requires all lactic acids initially measuring >2.0 mmol/L be repeated. [facility] Severe Sepsis and Septic Shock Management Bundle Measure requires all lactic acids initially measuring >2.0 mmol/L be repeated. 48 RESULTS VERIFIED BY REPEAT ANALYSIS 49 NON-FASTING 50 FROZEN EDTA PLASMA FROM [facility] 51 Presumptive Positive Presumptive positive results are unconfirmed. 52 Presumptive Positive Presumptive positive results are unconfirmed. 53 The urine specimen was tested at the listed cutoffs: Drug class test level (ng/mL) Amphetamines 500 Barbiturates 200 Benzodiazepine metabolites 200 Cocaine metabolites 150 Cannabinoids 50 Opiates 300 Pcp 25 Specimen was received without chain of custody. Results should be used for medical purposes only. 54 Acute inflammation: >10.00 55 Because ethnic data is not always readily [...] 15-29 5 Kidney failure <15 (or dialysis) 56 [facility] Severe Sepsis and Septic Shock Management Bundle Measure requires all lactic acids initially measuring >2.0 mmol/L be repeated. 57 Please note the change in INR reference range effective 17. 58 SEE RESULT BELOW Name: GILDA CORTEZ : [address]: Aung Alexander MD Acct: [id number] Unit: [id number] AGE: 62 Location: ED Re06/06/17 SEX: M Status: DEP ER SPEC: [id number] SIENA: 06/07/17-[address] [facility] [address]: Aung Alexander MD REQ: [id number] RECD: 06/07/17-125 STATUS: MICHAEL GANT DR: Kellee Bangura MD _ SOURCE: URINE SPDESC: ORDERED: Urine Culture QUERIES: Urine Source: Random Procedure Result Reported Site Urine Culture Final 06/08/17- 1337 ML No Growth (<1,000 CFU/mL) * ML - MAIN LAB ([facility]) . END OF REPORT * ML=Testing performed at Main Lab DEPARTMENT OF PATHOLOGY, [address] [place] [address] Alirio Hawkins M.D. Director [facility] # [id number] 59 Presumptive Positive Presumptive positive results are unconfirmed. 60 Presumptive Positive Presumptive positive results are unconfirmed. 61 The urine specimen was tested at the listed cutoffs: Drug class test level (ng/mL) Amphetamines 500 Barbiturates 200 Benzodiazepine metabolites 200 Cocaine metabolites 150 Cannabinoids 50 Opiates 300 Pcp 25 Specimen was received without chain of custody. Results should be used for medical purposes only. 62 Therapeutic concentration: <50 ug/mL Toxic concentration: >120 ug/mL 63 Because ethnic data is not always readily [...] 15-29 5 Kidney failure <15 (or dialysis) 64 SEE RESULT BELOW Name: GILDA CORTEZ : [address]: Henry Nunez MD Acct: [id number] Unit: [id number] AGE: 62 Location: ENDO Re03/26/17 SEX: M Status: DEP REF SPEC: [id number] SIENA: 03/26/17- DR: Henry Nunez MD REQ: [id number] RECD: 03/26/17 STATUS: BERENICE GANT DR: Kellee Bangura MD [...] performed at Main Lab DEPARTMENT OF PATHOLOGY, [address] [place] [address] Alirio Hawkins M.D. Director [facility] # [id number] 65 2 light blue tops FILLED T O THE LINE 66 INTERNATIONAL NORMALIZED RATIO(INR) INDICATIONS INR RANGE PATIENTS [...] WITH AN UNACCEPTABLY HIGH RISK OF BLEEDING. 67 result rechecked 68 RESULTS VERIFIED BY REPEAT ANALYSIS 69 RESULTS VERIFIED BY REPEAT ANALYSIS 70 RESULTS VERIFIED BY REPEAT ANALYSIS 71 2 light blue filled to the line 72 INTERNATIONAL NORMALIZED RATIO(INR) INDICATIONS INR RANGE PATIENTS [...] WITH AN UNACCEPTABLY HIGH RISK OF BLEEDING. 73 RESULTS VERIFIED BY REPEAT ANALYSIS 74 1 serum pour off from red top 75 Concentrations above 2.0 ng/mL are generally considered toxic. Some overlap of toxic and non-toxic values have been reported. Detection Limit=0.4 ng/mL Therapeutic range is derived from 2013 ACCF/AHA Guidelines for the Management of Heart Failure. 76 RESULTS VERIFIED BY REPEAT ANALYSIS 77 RESULTS VERIFIED BY REPEAT ANALYSIS 78 RESULTS VERIFIED BY REPEAT ANALYSIS 79 [facility] Severe Sepsis and Septic Shock Management Bundle Measure requires all lactic acids initially measuring >2.0 mmol/L be repeated. 80 REFERENCE VALUE 12.0 - 46.0 ADDITIONAL INFORMATION This test was developed and its performance characteristics determined by [facility] in a manner consistent with CLIA requirements. This test has not been cleared or approved by the U.S. Food and Drug Administration. Test Performed by: [place] [address] 81 Test Performed by: [facility] [address] [place] [address] [place] [id number] 82 Concentrations above 2.0 ng/mL are generally considered toxic. Some overlap of toxic and non-toxic values have been reported. Detection Limit=0.4 ng/mL 83 1pour off serum from red t op 84 [employer]: [id number] JERMAINE ROMERO 85 RESULTS VERIFIED BY REPEAT ANALYSIS 86 RESULTS VERIFIED BY REPEAT ANALYSIS 87 FASTING 88 consistent w/ previous results 89 RESULTS VERIFIED BY REPEAT ANALYSIS interpret with caution remberto up in syringe 90 RESULTS VERIFIED BY REPEAT ANALYSIS 91 Reference Range and Interpretation: TnI (ng/mL) Interpretation Less Than 0.03 ng/mL Not supportive of diagnosis of [place] 0.03 - 0.50 ng/mL Indeterminate: suggest serial studies if clinically indicated. Greater than 0.5 ng/mL Consistent with diagnosis of [place] 92 Critical Result LACT:2.2 Called to [id number] at: 02:34:27 by:[id number] Read back by:[id number] [facility] Severe Sepsis and Septic Shock Management Bundle Measure requires all lactic acids initially measuring >2.0 mmol/L be repeated. 93 REFERENCE VALUE 12.0 - 46.0 Test Performed by: [address] [address] Physiology Teacher: Ivan Frost II, M.D., Ph.D. 94 Because ethnic data is not always readily [...] 15-29 5 Kidney failure <15 (or dialysis) 95 Reference Range and Interpretation: TnI (ng/mL) Interpretation Less Than 0.03 ng/mL Not supportive of diagnosis of [place] 0.03 - 0.50 ng/mL Indeterminate: suggest serial studies if clinically indicated. Greater than 0.5 ng/mL Consistent with diagnosis of [place] 96 2SST 97 Negative: < 0.8 Indeterminate: 0.8 - 0.9 Positive: > 0.9 In order to reduce the incidence of a false positive result, the CDC recommends that all s/co ratios between 1.0 and 10.9 be confirmed by a more specific supplemental or PCR testing. [facility] offers HCV Ab w/Reflex to Verification test #[id number]. 98 Index Value: Specimen reactivity relative to the negative cutoff. 99 RESULTS VERIFIED BY REPEAT ANALYSIS Procedures Date Code Description Status 03/26/2017 [id number] Colonoscopy Completed 03/19/2017 [id number] Colonoscopy Completed 04/18/2016 38690 Pulse Oximetry Completed 04/18/2016 88692 Electrocardiogram Complete Completed 03/07/2016 17326 Finger Or Heel Stick Completed 03/01/2016 00931 Finger Or Heel Stick Completed 02/16/2016 68903 Finger Or Heel Stick Completed 02/10/2016 41099 Finger Or Heel Stick Completed 01/31/2016 56443 Finger Or Heel Stick Completed 01/24/2016 95825 Finger Or Heel Stick Completed 01/19/2016 44578 Finger Or Heel Stick Completed Encounters Type Date Location Provider Dx Diagnosis Office Visit 10/23/2018 Main Office Autumn Schafer I48.2 Chronic atrial 3:50p MD Debbie fibrillation M25.512 Pain in left shoulder J18.8 Other pneumonia, unspecified organism Office Visit 10/09/2018 3:50p Main Office Autumn Schafer J18.8 Other pneumonia , MD Debbie unspecified organism M25.512 Pain in left shoulder F41.1 Generalized anxiety disorder I73.9 Peripheral vascular disease, unspecified Office Visit 08/22/2018 Main Office Autumn Schafer E87.1 Hypo-osmolality and 1:30p MD Debbie hyponatremia F41.1 Generalized anxiety disorder G40.89 Other seizures 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 Office Visit 06/21/2018 Main Office Autumn Schafer E87.1 Hypo-osmolality and 3:00p MD Debbie hyponatremia F41.1 Generalized anxiety disorder Office Visit 05/17/2018 4:40p Main Office Autumn Schafer I73.9 Peripheral MD Debbie vascular disease, unspecified 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 Office Visit 04/26/2018 4:40p Main Office Autumn Schafer S01.01xD Slime Urbina MD without foreign body of scalp, subs encntr Z48.02 Encounter for removal of sutures Office Visit 04/20/2018 9:20a Main Office Autumn Schafer S01.01xD Slime Urbina MD without foreign body of scalp, subs encntr G40.89 Other seizures F31.0 Bipolar disorder, current episode hypomanic W10.9xxD Fall (on) (from) unspecified stairs and steps, subs encntr Office Visit 04/05/2018 3:00p Main Office Autumn Schafer F31.0 Bipolar disorder, MD Debbie current episode hypomanic I73.9 Peripheral vascular disease, [...] 12/26/2017 1:00p Main Office Autumn Schafer F41.1 Generalized MD Debbie anxiety disorder E03.9 Hypothyroidism, unspecified Office Visit [...] [facility] Karena Romeo 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 pulmonary disease, unspecified I10 Essential (primary) hypertension I25.10 Athscl heart disease of [place] coronary artery w/o ang pctrs F31.9 Bipolar disorder, unspecified G40.309 Gen idiopathic epilepsy, not intractable, w/o stat epi Z12.11 Encounter for screening for malignant neoplasm of colon Office Visit 05/24/2016 2:45p Main Office Eun Mcwilliams, R49.0 Dysphonia Afnp-C Office Visit 04/18/2016 2:20p Main Office Kellee Bangura M.D. R07.89 Other chest pain I25.10 Athscl heart disease of [place] coronary artery w/o ang pctrs J44.9 Chronic obstructive pulmonary disease, unspecified F31.9 Bipolar disorder, unspecified Office Visit 03/07/2016 3:40p Main Office Kellee Bangura J44.9 Chronic obstructive M.D. 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 J44.9 Chronic obstructive pulmonary disease, unspecified I25.10 Athscl heart disease of [place] coronary artery w/o ang pctrs F17.210 Nicotine [...] Not Class Elsewhere Plan of Treatment Future Appointment(s):02/05/2019 1:20 pm - Autumn Urbina MD at Main [id number]/13/2018 - Autumn Urbina MDI48.2 Chronic atrial hslimkuteqgsB48.9 Peripheral vascular disease, ktoofozhfgjD56.01xD Laceration without foreign body of scalp, subsequent encounterNew Medication:Hydrocodone- Acetaminophen 10-325 mg - 1 tab by mouth every 8 hours as neededAllComments: Medication Management Patient Understands medications he's taking? Yes No Are there Barriersto Adherence? Yes No Has the patient been asked about herbal supplements and therapies, and OTC meds? Yes No
[2018-11-24] MEDS ORDERED: Azithromycin 500 mg/250 ml NS 500 MG/250 ML BAG IVPB ONE (09:23)
[2018-11-24] MEDS ORDERED: cefTRIAXone(*) 1 GM in NS 0.9% 50 ML* 50 ML IVPB ONE (09:23)
[2018-11-24] MEDS ORDERED: Iohexol 350* (CONTRAST) 500 ML MDV IV ONE (09:50)
[2018-11-24] MEDS ORDERED: Lorazepam PYXIS KEY PRN ×2 (10:01→10:04)
[2018-11-24] MEDS ORDERED: LORazepam INJ* 2 MG/ML 1 ML VIAL IV PUSH ONE ×2 (10:01→10:04)
[2018-11-24] MEDS ORDERED: Acetaminophen TAB* 325 MG PO PRN (10:03)
[2018-11-24 10:06] LABS: Alcohol < 10 mg/dL (<10)
[2018-11-24] MEDS ORDERED: Albuterol/Ipratropium NEB.SOL* Albuterol 2.5 MG/Ipratropium 0.5 MG 3 ML INH PRN (10:08)
[2018-11-24] MEDS ORDERED: LORazepam INJ* 2 MG/ML 1 ML VIAL IM SCH (11:00)
[2018-11-24] MEDS ORDERED: Furosemide IV* 10 MG/ML VIAL (40 MG) IV ONE (11:25)
[2018-11-24] MEDS ORDERED: Morphine 4 MG/ML VIAL (1 ml) 4 MG/ML VIAL IV PRN (11:53)
--- NOTE | 2018-11-24 11:54 | PN ---
Progress Note - Progress Note Date of Service: 11/24/18 Note: Called to floor by 4S nurses as patient arrived. Noted to be tachypneic with increased work of breathing. Switched to 15L mask, SpO2> 95%. Patient decompensated since my evaluation of him 1-2 hours ago. Plan to transfer immediately to ICU for respiratory distress. CTA chest reviewed showing pulmonary vascular congestion. Patient given 1L IVF in ED only. No hx of CHF, though could have diastolic dysfunction, last echo September 2018. ABG now. Plan for lasix x 1 now, leach catheter placement. Place on vapotherm as I do not think he will tolerate Bipap. If he does not improve on vapotherm, will transition to bipap. 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
[2018-11-24] MEDS ORDERED: Morphine 4 MG/ML VIAL (1 ml) 4 MG/ML VIAL ONE (11:57)
[2018-11-24] MEDS ORDERED: Lidocaine 2% JELLY* 6 ML JELLY TOPICAL ONE (11:58)
[2018-11-24] MEDS ORDERED: hydrALAZINE IV* 20 MG/ML VIAL IV SLOW PU PRN (12:15)
--- NOTE | 2018-11-24 12:52 | HP ---
CC: Dr. Lewis * [facility] MEDICINE HISTORY AND PHYSICAL: DATE OF ADMISSION: 11/24/18 PRIMARY CARE PHYSICIAN: Dr. Lewis. ATTENDING PHYSICIAN: Dr. Kusum Gamboa * (dictation provided by Arpita Avalos NP) . CHIEF COMPLAINT: Shortness of breath. HISTORY OF PRESENT ILLNESS: Mr. Cristhian Cortez is a 63-year-old male with a past medical history of bipolar disorder, alcoholism, continued nicotine use, severe peripheral vascular disease (unable to revascularize due to ongoing smoking), SIADH, and COPD with chronic atrial fibrillation, who presents to the hospital today with concern for shortness of breath. Mr. Cortez was initially quite agitated on my arrival in the emergency room consistent with his known history of bipolar disorder and william, and therefore, it is difficult to obtain history from him. He states that he feels very short of breath, although he is not significantly hypoxic. Per the report from EMS, they were called because of his shortness of breath and he was noted to be 89% on room air. In the emergency room here, he had an O2 saturation over 90% on room air, now on 2 L nasal cannula. He has a chest x-ray, which shows concern for progressive right lower lobe infiltrate and pneumonia. I will note that the patient was discharged from the hospital on 09/25/18 with concern for a possible consolidation, although he was asymptomatic with treatment with Levaquin. PAST MEDICAL HISTORY: 1. Bipolar disorder. 2. Depression. 3. Seizure disorder. 4. Alcohol abuse. 5. Hypertension. 6. SIADH. 7. Neuropathy. 8. Severe peripheral vascular disease. 9. COPD. 10. Mitral regurgitation, status post mitral valve replacement and bioprosthetic valve. 11. History of chronic atrial fibrillation. 12. Hyperlipidemia. 13. Tobacco abuse. PAST SURGICAL HISTORY: 1. History of pacemaker. 2. History of bioprosthetic valve with mitral valve replacement. MEDICATIONS: The patient was somewhat distraught in the ED and it was difficult to get him to focus on the medication reconciliation, but what was provided with sufficient detail that I believe is correct. I have: 1. Lorazepam 2 mg p.o. b.i.d. p.r.n. 2. Folic acid 1 mg p.o. daily. 3. Breo Ellipta 1 puff inhaled daily. 4. Depakote ER 1500 mg p.o. q.a.m. 5. Diltiazem CD 240 mg p.o. daily. 6. Digoxin 0.125 mg p.o. daily (the patient states that this dose was just recently decreased). 7. Pletal 100 mg p.o. b.i.d. 8. Atorvastatin 20 mg p.o. daily. 9. Aspirin 81 mg p.o. daily. 10. Incruse Ellipta metered-dose inhaler 1 puff inhaled daily. 11. Spiriva 2 caps inhaled daily. 12. Thiamine 100 mg p.o. daily. 13. Tamsulosin 0.4 mg p.o. daily. 14. Sertraline 200 mg p.o. daily. 15. Nicotine patch daily. 16. Multivitamin and mineral 1 tab p.o. daily. 17. Metoprolol succinate 25 mg p.o. bedtime. 18. Levothyroxine 25 mcg p.o. daily. 19. Keppra 750 mg p.o. t.i.d. ALLERGIES: No known drug allergies. FAMILY HISTORY: The patient has reported that he does not know his family history. SOCIAL HISTORY: The patient is a current smoker, smoking at least a pack and a half a day. The patient has a known long-term history of alcoholism with multiple visits to the ED. He does not have a healthcare proxy. REVIEW OF SYSTEMS: A 14-point review of systems was attempted to be completed with Mr. Cortez and only thing he is complaining of today is shortness of breath. PHYSICAL EXAMINATION GENERAL: Mr. Cortez is lying in the bed. He is initially yelling and screaming stating that he is short of breath; however, after about 15 to 20 minutes, he has calmed down and interacting appropriately and requesting pain medications or Ativan. VITAL SIGNS: Temperature 97.9, pulse rate 96, respiratory rate 21, O2 saturation 100% on 3 L nasal cannula, blood pressure 183/114. HEENT: Extraocular movements intact. LUNGS: Coarse rhonchi with wheezing bilaterally with no accessory muscle use and good aeration. HEART: S1, S2. No murmur, rub, or gallop and regular. ABDOMEN: Soft, nontender with bowel sounds positive x4. EXTREMITIES: No cyanosis or edema. NEUROLOGIC: He is alert. He is oriented x3. He moves all extremities equally. There is no facial asymmetry or focal weakness. SKIN: Intact. DIAGNOSTIC STUDIES/LAB DATA: WBC 6.6, hemoglobin 12.7, hematocrit 37, platelet count 238. INR 1.11. D-dimer 932. ABG shows pH of 7.41, pCO2 36, pO2 89, bicarbonate 23.7. Sodium 124, potassium 4.3, chloride 92, serum bicarbonate 25, BUN 10, creatinine 0.85, glucose 95, lactic acid 0.8. CRP 32.52. BNP 501. Serum alcohol and valproic acid levels are pending. Again, the chest x-ray showed concern for consolidation. The patient is now at CTA to rule out PE. ASSESSMENT: Mr. Cortez is a 63-year-old male with past medical history of alcoholism, tobacco abuse, bipolar disorder, atrial fibrillation, pacemaker, and chronic obstructive pulmonary disease, who presents today to the hospital with shortness of breath with concern for chronic obstructive pulmonary disease exacerbation and possible pneumonia. Our plans are for observation in the hospital for the followin. Shortness of breath: I suspect the patient has an exacerbation of chronic obstructive pulmonary disease with possible pneumonia. He does have an elevated D-dimer and we are sending him for CTA chest now. Plan at this point is, depending on the results of the CTA, is to treat with ceftriaxone, azithromycin, Duo nebulizer, steroids, and oxygen as needed. I suspect that a large component of his symptoms are related to his agitation, which we will treat as needed with p.r.n. anxiolytics if necessary. 2. Alcohol abuse. The patient has a long-term history of alcoholism and I am concerned about withdrawal symptoms. The patient will have a [facility] protocol with multivitamin, thiamine, and folate. 3. Nicotine use. The patient has a patch available. 4. Atrial fibrillation. The patient's heart rate is slightly above 100 now. We will continue with his home rate-control agents and add additional medications as needed, but he is not on home anticoagulation other than low- dose aspirin. 5. History of bipolar disorder and seizures. Plan to continue home medications. 6. DVT prophylaxis with heparin subcu. 7. Code status is full code. TIME SPENT: Approximately 60 minutes were spent on admission of this patient; more than half the time spent with the patient at the bedside reviewing the events leading up to this hospitalization, performing the physical examination, and reviewing the plan for care. ARPITA AVALOS NP [id number]/[facility] #: [id number] [facility]PITALMaria C
[2018-11-24] MEDS ORDERED: levETIRAcetam TAB* 500 MG PO SCH (14:00)
[2018-11-24] MEDS: Heparin VIAL(*) 5000 UNITS/ML VIAL (FIVE THOUSAND) SUBCUT SCH ×2 (14:37→21:47)
--- NOTE | 2018-11-24 14:37 | CONSULT ---
Consult Consult: Consultation Note -- Critical Care Requesting Physician:Dr Gamboa Reason for consult: respiratory distress Limitations in history/physical: sleeping post sedation Date of consult: 11/24/2018 HPI: 63y M w/pmhx of Afib, s/p PPM, s/p bioMVR, PVD, Alcohol abuse, HTN, COPD, HLD, Bipolar disorder, seizure disorder, active smoker, hypothyroidism; Recent admission to [facility] [place] 09/2018 for leg pain, episode of wide complex arrhythmia, treated for pneumonia with Levaquin and discharged home. He comes to [facility] [place] ER for complaints of SOB x1 week, Lower extremity weakness, fatigue+. He called EMS overnight at 2am, noted to have sats 89% on RA. He also stated yellow/green sputum production. He was midly tachycardic, tachypneic 22, hypertensive 160- 180s, sats 90s on 2 L NC. He was started on sepsis protocol, given IVF Ns 1 Liter, CAP tx IV abx. Later developed respiratory distress and upgraded to ICU. Given Lasix 40mg IV push in ER CXR and CT chest in ER demonstrated no clear focal infiltrate/consolidation but there was evidence of congestion, consistent with CHF; no PE identified on CT He was started on NIV for support. Using Acc muscles initially. Given resp distress he was given some morphine for apparent anxiety. He is currently asleep but comfortable on NIV 06/13 60%. RR upper teens, sat 100%. No acc muscle use. No wheezing on exam, minimal left sided exp rhonchi only, no rhales. ROS: ROS limited due to change in mental status/sedation given prior PMHx: Afib, s/p PPM, s/p bioMVR, PVD, Alcohol abuse, HTN, COPD, HLD, Bipolar disorder, seizure disorder, active smoker, hypothyroidism, ho SIADH PSHx: CABG, PPM, bio MVR Family History: Mother depression; father alcohol abuse Social History: Alcohol-daily 6beers and 1 pint, Smoking-1/2 ppd active x40yrs, Drug use-marijuana occassionally Allergies: Allergies Allergy/AdvReac Type Severity Reaction Status Date / Time No Known Allergies Allergy Verified 06/18/18 14:24 Home Medications: Fluticasone/Vilanterol MDI(NF) [Breo Ellipta MDI 100/25(NF)] 1 puff INH DAILY [History Confirmed 11/24/18] Divalproex ER TAB(*) [Depakote ER TAB(*)] 1,500 mg PO QAM 08/21/17 [History Confirmed 11/24/18] Umeclidinium 62.5 MDI(NF) [Incruse ELLIPTA MDI (NF)] 1 puff INH DAILY 03/28/18 [ History Confirmed 11/24/18] levETIRAcetam TAB* [Keppra TAB*] 750 mg PO TID 03/28/18 [History Confirmed 11/24] Cilostazol TAB* [Pletal TAB*] 100 mg PO BID 30 Days #60 tab 06/14/18 [Rx Confirmed 11/24/18] Metoprolol Succinate XL TAB* [Toprol XL TAB*] 25 mg PO BEDTIME 30 Days #30 tab.xl 06/14/18 [Rx Confirmed 11/24/18] Aspirin EC TAB* [Ecotrin EC Low Dose 81 MG*] 81 mg PO DAILY 06/18/18 [History Confirmed 11/24/18] Atorvastatin* [Lipitor 20 MG*] 20 mg PO DAILY 06/18/18 [History Confirmed ] Digoxin TAB* [Lanoxin TAB*] 0.125 mg PO DAILY 06/18/18 [History Confirmed ] Diltiazem CD CAP* [Cardizem CD CAP*] 240 mg PO DAILY 06/18/18 [History Confirmed 11/24/18] Levothyroxine TAB* [Synthroid 25 MCG TAB*] 25 mcg PO DAILY 06/18/18 [History Confirmed 11/24/18] Sertraline* [Zoloft*] 200 mg PO DAILY 06/18/18 [History Confirmed 11/24/18] Tiotropium CAP.INH* [Spiriva CAP.INH*] 2 cap.inh INH DAILY 06/18/18 [History Confirmed 11/24/18] LORazepam [Lorazepam] 2 mg PO BID PRN 09/24/18 [History Confirmed 11/24/18] Tamsulosin CAP* [Flomax CAP*] 0.4 mg PO DAILY 09/24/18 [History Confirmed ] Folic Acid TAB* [Folvite TAB*] 1 mg PO DAILY tab 09/25/18 [Rx Confirmed ] Multivitamins/Minerals TAB* [Theragran/minerals TAB*] 1 tab PO DAILY tab [Rx Confirmed 11/24/18] Nicotine PATCH 21 MG/24 HR* 1 patch TRANSDERM DAILY@0800 #30 patch 09/25/18 [Rx Confirmed 11/24/18] Thiamine TAB* [Vitamin B-1 TAB 100 MG*] 100 mg PO DAILY tab 09/25/18 [Rx Confirmed 11/24/18] Tele: Afib, rate controlled Vitals: Vital Signs Temp 97.9 F 11/24/18 13:07 Pulse 95 11/24/18 13:07 Resp 22 11/24/18 13:07 BP 152/84 11/24/18 13:07 Pulse Ox 100 11/24/18 13:07 Intake & Output 11/23/18 11/24/18 11/24/18 18:59 06:59 18:59 Intake Total 1100 Output Total 1350 Balance -250 Weight 77.111 kg Intake: IV Fluids 1100 Output: Urine 400 Leach 950 O2/Vent: NIV 12/6 60% Infusions: heplock Current Medications: Acetaminophen (Tylenol Tab*) 650 mg PO Q4H PRN PRN Reason: PAIN Albuterol/Ipratropium (Duoneb (Albuterol 2.5 Mg/Ipratropium 0.5 Mg)) 1 neb INH Q4H PRN PRN Reason: SOB/WHEEZING Aspirin (Aspirin Ec Tab*) 81 mg PO DAILY [facility] Atorvastatin Calcium (Lipitor*) 20 mg PO DAILY [facility] Cilostazol (Pletal Tab*) 100 mg PO BID [facility] Device (Tiotropium Inhaler Device*) 1 each INH 0900 ONE Stop: 11/25/18 09:01 Digoxin (Lanoxin Tab*) 0.125 mg PO DAILY@1700 [facility] Diltiazem HCl (Cardizem Cd Cap*) 240 mg PO DAILY [facility] Divalproex Sodium (Depakote Er Tab(*)) 1,500 mg PO QAM [facility] Doxycycline Hyclate (Vibramycin Cap(*)) 100 mg PO BID [facility] Folic Acid (Folvite Tab*) 1 mg PO DAILY [facility] Folic Acid (Folvite Tab*) 1 mg PO DAILY [facility] Heparin Sodium (Porcine) (Heparin Vial(*)) 5,000 units SUBCUT Q8HR [facility] Hydralazine HCl (Apresoline Iv*) 5 mg IV SLOW PU Q6H PRN PRN Reason: SBP > 185 Ceftriaxone Sodium 1 gm/ (Sodium Chloride) 50 mls @ 200 mls/hr IVPB Q24H [facility] Levetiracetam 750 mg/ Sodium (Chloride) 107.5 mls @ 410 mls/hr IVPB Q8H [facility] Levothyroxine Sodium (Synthroid Tab*) 25 mcg PO DAILY@0600 [facility] Lorazepam (Ativan Inj*) 0 - 6 mg IM .[facility] PROTOCOL [facility]; Protocol Metoprolol Succinate (Toprol Xl Tab*) 25 mg PO BEDTIME [facility] Miscellaneous (Ativan Pyxis Bower) 1 ea N/A .ATIVAN IV BOWER PRN PRN Reason: PYXIS BOWER Morphine Sulfate (Morphine 4 Mg/Ml Vial (1 Ml)) 4 mg IV Q4H PRN PRN Reason: PAIN Multivitamins/Minerals (Theragran/Minerals Tab*) 1 tab PO DAILY [facility] Multivitamins/Minerals (Theragran/Minerals Tab*) 1 tab PO DAILY [facility] Nicotine (Nicotine Patch 21 Mg/24 Hr*) 1 patch TRANSDERM DAILY@0800 [facility] Prednisone (Deltasone Tab*) 60 mg PO DAILY [facility] Sertraline HCl (Zoloft*) 200 mg PO DAILY [facility] Tamsulosin HCl (Flomax Cap*) 0.4 mg PO DAILY [facility] Thiamine HCl (Vitamin B-1 Tab*) 100 mg PO DAILY [facility] Tiotropium Blakes[place] (Spiriva Cap.Inh*) 1 cap INH DAILY [facility] Physical Exam: Constitutional: sedated now, no distress, no diaphoresis; was tachypneic before in distress, improved with NIV Head: normocephalic, atraumatic Eyes: no pallor, no icterus ENT: moist mucous membranes Neck: soft, supple, no jvd, no stridor CVS: normal rate, irregular, no murmur Resp: bilateral air entry, no rhales, no wheeze, mild left rhonchi exp+, no acc muscle use now Abdomen/GI: soft, nontender, nondistended, BS+ Ext/Msk: warm, pulses+, no edema Skin: intact, warm Neuro: sleeping, arousable, moving all extremities earlier Labs: Laboratory Results - last 24 hr 11/24/18 11/24/18 11/24/18 08:50 08:51 08:51 WBC 6.6 RBC 4.15 L Hgb 12.7 L Hct 37 L MCV 89 MCH 31 MCHC 34 RDW 16 H Plt Count 238 MPV 7.4 Neut % (Auto) 73.9 Lymph % (Auto) 12.6 [place] % (Auto) 11.4 Eos % (Auto) 1.6 Baso % (Auto) 0.5 Absolute Neuts (auto) 4.9 Absolute Lymphs (auto) 0.8 L Absolute Monos (auto) 0.7 Absolute Eos (auto) 0.1 Absolute Basos (auto) 0.0 Absolute Nucleated RBC 0.0 Nucleated RBC % 0.1 INR (Anticoag Therapy) 1.11 H D-Dimer, Quantitative 932 H Patient Temperature ABG pH 7.41 ABG pH (Temp Correct) ABG pCO2 36 ABG pCO2 (Temp Corrct ABG pO2 89 ABG pO2 (Temp Correct ABG HCO3 23.7 ABG O2 Saturation 98.3 H ABG Base Excess -1.4 Respiration Rate O2 Delivery Device Ventilator Type Vent Mode FiO2 Inspiratory Time PEEP Pressure Support Pressure Control EPAP IPAP BiPAP Sodium Potassium Chloride Carbon Dioxide Anion Gap BUN Creatinine Est GFR ( Amer) Est GFR (Non-Af Amer) BUN/Creatinine Ratio Glucose Lactic Acid Calcium Total Bilirubin AST ALT Alkaline Phosphatase Troponin I C-Reactive Protein B-Natriuretic Peptide Total Protein Albumin Globulin Albumin/Globulin Ratio Valproic Acid Serum Alcohol 11/24/18 11/24/18 11/24/18 08:51 08:51 08:51 WBC RBC Hgb Hct MCV MCH MCHC RDW Plt Count MPV Neut % (Auto) Lymph % (Auto) [place] % (Auto) Eos % (Auto) Baso % (Auto) Absolute Neuts (auto) Absolute Lymphs (auto) Absolute Monos (auto) Absolute Eos (auto) Absolute Basos (auto) Absolute Nucleated RBC Nucleated RBC % INR (Anticoag Therapy) D-Dimer, Quantitative Patient Temperature ABG pH ABG pH (Temp Correct) ABG pCO2 ABG pCO2 (Temp Corrct ABG pO2 ABG pO2 (Temp Correct ABG HCO3 ABG O2 Saturation ABG Base Excess Respiration Rate O2 Delivery Device Ventilator Type Vent Mode FiO2 Inspiratory Time PEEP Pressure Support Pressure Control EPAP IPAP BiPAP Sodium 124 L Potassium 4.3 Chloride 92 L Carbon Dioxide 25 Anion Gap 7 BUN 10 Creatinine 0.85 Est GFR ( Amer) 110.2 Est GFR (Non-Af Amer) 91.0 BUN/Creatinine Ratio 11.8 Glucose 95 Lactic Acid 0.8 Calcium 9.0 Total Bilirubin 0.70 AST 17 ALT 13 Alkaline Phosphatase 114 H Troponin I 0.01 C-Reactive Protein 32.52 H B-Natriuretic Peptide 501 H Total Protein 7.5 Albumin 3.9 Globulin 3.6 Albumin/Globulin Ratio 1.1 Valproic Acid 35.0 L Serum Alcohol < 10 11/24/18 11/24/18 12:50 13:35 WBC RBC Hgb Hct MCV MCH MCHC RDW Plt Count MPV Neut % (Auto) Lymph % (Auto) [place] % (Auto) Eos % (Auto) Baso % (Auto) Absolute Neuts (auto) Absolute Lymphs (auto) Absolute Monos (auto) Absolute Eos (auto) Absolute Basos (auto) Absolute Nucleated RBC Nucleated RBC % INR (Anticoag Therapy) D-Dimer, Quantitative Patient Temperature Not Reportable ABG pH 7.42 ABG pH (Temp Correct) Not Reportable ABG pCO2 38 ABG pCO2 (Temp Corrct Not Reportable ABG pO2 194 H ABG pO2 (Temp Correct Not Reportable ABG HCO3 25.2 ABG O2 Saturation 100.0 H ABG Base Excess 0.3 Respiration Rate 14 O2 Delivery Device bipap Ventilator Type Not Reportable Vent Mode Not Reportable FiO2 60 Inspiratory Time Not Reportable PEEP Not Reportable Pressure Support Not Reportable Pressure Control Not Reportable EPAP 6 IPAP 12 BiPAP Not Reportable Sodium Potassium Chloride Carbon Dioxide Anion Gap BUN Creatinine Est GFR ( Amer) Est GFR (Non-Af Amer) BUN/Creatinine Ratio Glucose Lactic Acid Calcium Total Bilirubin AST ALT Alkaline Phosphatase Troponin I 0.01 C-Reactive Protein B-Natriuretic Peptide Total Protein Albumin Globulin Albumin/Globulin Ratio Valproic Acid Serum Alcohol Imaging: CXR 11/[address] chest 11/24 - demonstrated no clear focal infiltrate/ consolidation but there was evidence of congestion, consistent with CHF; no PE identified on CT Assessment: 63y M w/pmhx of Afib, s/p PPM, s/p bioMVR, PVD, Alcohol abuse, HTN, COPD, HLD, Bipolar disorder, seizure disorder, active smoker, hypothyroidism; Recent admission to [facility] [place] 09/2018 for leg pain, episode of wide complex arrhythmia , treated for pneumonia with Levaquin and discharged home. He comes to [facility] [place] [place] ER for complaints of SOB x1 week, Lower extremity weakness, fatigue+. He called EMS overnight at 2am, noted to have sats 89% on RA. He also stated yellow/green sputum production. He was midly tachycardic, tachypneic 22, hypertensive 160- 180s, sats 90s on 2 L NC. He was started on sepsis protocol, given IVF Ns 1 Liter, CAP tx IV abx. Later developed respiratory distress and upgraded to ICU. Given Lasix 40mg IV push in ER -Acute hypoxic respiratory failure -r/o pneumonia -Acute Pulmonary congestion -Acute decompensated CHF exaccerbation -Afib with RVR -hyponatremia COPD Bipolar disorder, seizure disorder Chronic alcohol abuse Plan: Neuro- -was awake, now s/p morphine, exam limited -h/o chronic alc abuse; monitor for withdrawal state; started folic acid/ thiamine po -bipolar; cont divalproex -seizure disorder; cont divalproex; change keppra to 750mg IV q8h till awake enough to take PO -cont Ativan prn as per home doses for agitation/restless/anxiety -will hold further morphine; neurochecks q4h -Delirium prec; avoid BDZ CVS- -BP better; cont antihypertensive -Afib, rate controlled now; intermittent pacing noted though; cont metoprolol 25mg XL daily, cont Cardizem 240mg CD, DIgoxin -not on AC otherwise ? -cont asa/statin for CAD/PVD; cont cilostazol for PVD -CXr with congestion; last TTE 09/3018 with intact LV function -IV Lasix 40mg x1 given; hold further IVF; repeat lasix later based on resp status -unclear if pneumonia/bronchitis; IV abx started -trop neg x2; ekg with afib and RBBB as prior -Maintain MAP>65 Resp- -Resp distress with hypoxia noted; improved earlier but seems he went into CHF; no further IVF -improved with NIV support -s/p Lasix and making urine -ABG reviewed; no resp acidosis; po2 190 on 100%, dec fio2 to 60% now -maintain NIV, maintain diuresis -sputum culture in process -IV abx empirically -Wean Fio2 to keep sat>92% -Bronchodilators PRN, Aspiration prec ID- afebrile, wbc normal -CXR and CT 11/24 with congestion; no focal consolidation noted -sputum and blood cx pending -empiric CTX (day#1) , doxy (day#1) GI- -NPO Renal- -Cr stable; follow K and Mg while diuresis -making good urine post Lasix 40mg IV x1 -hyponatremia noted; given NS, then lasix; off IVF now -repeat BMP at 8pm to see sodium trend -strict I/O, replete to keep K>4, Mg>2 -leach as indicated Heme- -hg 12s -plt okay; on ASA and cilastazol -DVT proph scd/heparin sq Endo- Maintain BG<200, insulin protocol as needed. Continue synthroid po. Musculsk- pressure ulcer prophylaxis. Bedrest. Wounds- none Nutrition- NPO DVT prophylaxis: SCD, heparin sq GI prophylaxis: none indicated Central Line: no Arterial Line: no Leach Cathetor: yes Disposition: Patient requires Critical Care/ICU for acute hypoxic respiratory failure, req NIV, pulmonary congestion/edema Patient Clinical Status: guarded, critical Code Status: full code Total Critical Care time is 45 minutes, excluding procedures/teaching Samuel Hamm MD Mix[employer] Machine Feeder (Electronically Signed)
[2018-11-24] MEDS: levETIRAcetam IV* 750 MG in NS 0.9% 100 ML* 100 ML IVPB SCH ×2 (15:43→23:55)
[2018-11-24 21:22] LABS: BUN/Creatinine Ratio 15.5 (8-20); Calcium 9.1 mg/dL (8.6-10.3); EGFR African American 135.6 (>60); EGFR Non-African American 112.1 (>60); Potassium 4.4 mmol/L (3.5-5.0)
[2018-11-24] MEDS: Cilostazol TAB* 100 MG PO SCH (21:47)
[2018-11-24] MEDS: Metoprolol Succinate XL TAB* 25 MG PO SCH (21:47)
[2018-11-24] MEDS: DOXYcycline CAP(*) 100 MG PO SCH (21:55)
[2018-11-25] MEDS: Heparin VIAL(*) 5000 UNITS/ML VIAL (FIVE THOUSAND) SUBCUT SCH ×3 (05:23→21:06)
[2018-11-25] MEDS: Levothyroxine TAB* 25 MCG TAB PO SCH (05:23)
[2018-11-25 06:29] LABS: BUN/Creatinine Ratio 21.2 (8-20); Calcium 9.1 mg/dL (8.6-10.3); EGFR African American 110.2 (>60); Potassium 4.4 mmol/L (3.5-5.0)
[2018-11-25] MEDS: levETIRAcetam IV* 750 MG in NS 0.9% 100 ML* 100 ML IVPB SCH ×3 (07:32→23:13)
[2018-11-25] MEDS: Tiotropium CAP.INH* CAP.INH/18 MCG (USE ORDER SET !) INH SCH (08:04)
[2018-11-25] MEDS ORDERED: Thiamine TAB* 100 MG TAB PO SCH (09:00)
[2018-11-25] MEDS ORDERED: Folic Acid TAB* 1 MG PO SCH (09:00)
[2018-11-25] MEDS ORDERED: Spiriva Inhaler DEVICE* 1 EACH DEVICE INH ONE (09:00)
[2018-11-25] MEDS ORDERED: predniSONE TAB* 20 MG PO SCH (09:00)
[2018-11-25] MEDS ORDERED: Multivitamins/Minerals TAB PO SCH (09:00)
[2018-11-25] MEDS: Sertraline* 100 MG TAB PO SCH (09:23)
[2018-11-25] MEDS: Aspirin EC TAB* 81 MG TAB.EC PO SCH (09:23)
[2018-11-25] MEDS: Folic Acid TAB* 1 MG PO SCH (09:24)
[2018-11-25] MEDS: Divalproex ER TAB(*) 500 MG PO SCH (09:24)
[2018-11-25] MEDS: DOXYcycline CAP(*) 100 MG PO SCH ×2 (09:24→21:03)
[2018-11-25] MEDS: Multivitamins/Minerals TAB PO SCH (09:24)
[2018-11-25] MEDS: Diltiazem CD CAP* 240 MG PO SCH (09:24)
[2018-11-25] MEDS: Cilostazol TAB* 100 MG PO SCH ×2 (09:24→21:03)
[2018-11-25] MEDS: Thiamine TAB* 100 MG TAB PO SCH (09:25)
[2018-11-25] MEDS: Nicotine PATCH 21 MG/24 HR* PATCH TRANSDERM SCH (09:25)
[2018-11-25] MEDS: Tamsulosin CAP* 0.4 MG PO SCH (09:25)
[2018-11-25] MEDS: Atorvastatin* 20 MG TAB PO SCH (09:25)
--- NOTE | 2018-11-25 09:52 | PN ---
Date of Service: 11/25/18 Critical Care Services: 63 y/o male with Hx multiple med problems, including Afib and CHF, admitted yesterday with respiratory distress considered secondary to pulmonary vascular congestion. Was diuresed overnight (almost 3 liters negative). Initially required BIPAP but now breathing comfortably without BIPAP and without supplemental O2. Vital Signs: Temp Pulse Resp BP SpO2 FiO2 97.5 F 95 18 103/64 93 Physical Exam: Gen:Resting comfortably Lungs:Occasional rhonchi. No crackles Cardiac: Irreg rhythm Extremities: No tremors or asterixis Fluid Balance (Past 24 Hours): 11/25/18 06:59 Intake Total 1527 Output Total 4400 Balance -2873 Weight 170 lb Intake: IV Fluids 1198 NS (0.9%) 98 IVPB 329 Keppra 222 Output: Urine 400 Barron 4000 Labs: Laboratory Results - last 24 hr 11/24/18 11/24/18 11/24/18 08:51 12:50 13:35 ABG pH 7.42 ABG pCO2 38 ABG pO2 194 H ABG HCO3 25.2 ABG O2 Saturation 100.0 H ABG Base Excess 0.3 Respiration Rate 14 O2 Delivery Device bipap FiO2 60 EPAP 6 IPAP 12 Sodium Potassium Chloride Carbon Dioxide Anion Gap BUN Creatinine Est GFR ( Amer) Est GFR (Non-Af Amer) BUN/Creatinine Ratio Glucose Calcium Troponin I 0.01 Valproic Acid 35.0 L Serum Alcohol < 10 11/24/18 11/24/18 11/24/18 15:17 17:43 20:52 Patient Temperature ABG pH ABG pH (Temp Correct) ABG pCO2 ABG pCO2 (Temp Corrct ABG pO2 ABG pO2 (Temp Correct ABG HCO3 ABG O2 Saturation ABG Base Excess Respiration Rate O2 Delivery Device Ventilator Type Vent Mode FiO2 Inspiratory Time PEEP Pressure Support Pressure Control EPAP IPAP BiPAP Sodium 129 L Potassium 4.4 Chloride 96 L Carbon Dioxide 24 Anion Gap 9 BUN 11 Creatinine 0.71 Est GFR ( Amer) 135.6 Est GFR (Non-Af Amer) 112.1 BUN/Creatinine Ratio 15.5 Glucose 146 H Calcium 9.1 Troponin I 0.01 0.00 11/25/18 05:14 Patient Temperature ABG pH ABG pH (Temp Correct) ABG pCO2 ABG pCO2 (Temp Corrct ABG pO2 ABG pO2 (Temp Correct ABG HCO3 ABG O2 Saturation ABG Base Excess Respiration Rate O2 Delivery Device Ventilator Type Vent Mode FiO2 Inspiratory Time PEEP Pressure Support Pressure Control EPAP IPAP BiPAP Sodium 131 L Potassium 4.4 Chloride 98 L Carbon Dioxide 26 Anion Gap 7 BUN 18 Creatinine 0.85 Glucose 123 H Calcium 9.1 Troponin I Valproic Acid Serum Alcohol Studies: All cultures and urinary antigens negative. Sputum gram stain shows contamination from mouth secretions. Nutrition: Oral diet Impression: Has improved clinically after diuresis. No evidence of an acute coronary syndrome or a community- acquired pneumonia. Plan: Transfer out of ICU today and continue diuresis. Consider discontinuing antibiotics. Critical Care Time: 40 minutes (includes time reviewing case with previous ICU attending.
[2018-11-25] MEDS ORDERED: cefTRIAXone(*) 1 GM in NS 0.9% 50 ML* 50 ML IVPB SCH (10:00)
[2018-11-25] MEDS: Digoxin TAB* 0.125 MG PO SCH (16:25)
--- NOTE | 2018-11-25 16:33 | ECHO ---
*[facility]* [place] [address] Fax #: [phone] Patient: Dana, Height: 69 in / Cristhian Charles 175.3 cm : 1955 Weight: 169.6 lb / Study Date: 11/25/2018 77.1 kg Age: 63 BP: 128 / 74 Gender: M BMI/BSA: 25.1 kg/m^2 HR: 92 bpm / 1.93 m^2 *Induction Machine Setter: Trisha Busch [facility] *Referring Physician: * Arpita AvalosReading Physician: * Abbe Armstrong MD Indications: Congestive Heart Failure. History: ETOH. Atrial fibrillation. Atherosclerosis. Chronic obstructive pulmonary disease. Risk factors: Current tobacco use. Hypertension. Dyslipidemia. Labs, prior tests, procedures, and surgery: Permanent pacemaker system implantation. Mitral valve replacement with a bioprosthetic valve. Conclusions Summary: 1. Left ventricle: Wall thickness is mildly to moderately increased. Systolic function is hyperdynamic. The estimated ejection fraction is 65-70%. There is dynamic obstruction of the left ventricle out flow tract with peak gradient of 25-30 mmHg (Mild) 2. Right ventricle: Systolic function is normal. Systolic pressure is mildly increased. 3. Mitral valve: There is a bioprosthesis. Normal function There is no significant regurgitation. 4. Aortic valve: There is no evidence of stenosis. 5. Tricuspid valve: There is mild regurgitation. 6. Pericardium, extracardiac: There is no significant pericardial effusion. 7. Compared to study of 09/25/18, the left ventricle function and mitral valve replacement are the same. THe left ventricle outflow obstruction is new. Study data: Procedure: Transthoracic echocardiography was performed. Image quality was good. Complete 2D, spectral Doppler, and color flow Doppler. Location: ICU Patient status: Inpatient. Patient room number: 8. Rhythm: Atrial fibrillation. Findings Left ventricle: Wall thickness is mildly to moderately increased. Systolic function is hyperdynamic. The estimated ejection fraction is 65-70%. There is dynamic obstruction of the left ventricle out flow tract with peak gradient of 25-30 mmHg (Mild) Left ventricular diastolic function parameters are indeterminate. Right ventricle: The cavity size is normal. Pacer wire noted in the right ventricle. Systolic function is normal. Systolic pressure is mildly increased. Left atrium: The atrium is moderately dilated. Right atrium: The atrium is normal in size. Pacer wire noted in right atrium. Mitral valve: There is a bioprosthesis. Normal function The leaflets are normal thickness. There is no evidence of stenosis. There is no significant regurgitation. Aortic valve: The valve is probably trileaflet. The leaflets are mildly thickened. There is no evidence of stenosis. There is no significant regurgitation. Tricuspid valve: The leaflets are normal thickness. There is no evidence of stenosis. There is mild regurgitation. Pulmonic valve: The leaflets are normal thickness. There is no evidence of stenosis. There is no significant regurgitation. Aorta: Aortic root: The aortic root is appears normal. Ascending aorta: The ascending aorta is not visualized. Aortic arch: The aortic arch is not visualized. Pericardium: There is no significant pericardial effusion. Pulmonary arteries: Not well visualized. Systemic veins: Inferior vena cava: The vessel is dilated. The respirophasic diameter changes are blunted (< 50%). Measurements Left ventricle Value Ref Aortic valve Value Ref SOFÍA, LAX (L) 3.7 cm 4.2 - 5.8 Rodrigo diam, ED 2.0 cm ----- ESD, LAX (L) 2.4 cm 2.5 - 4.0 Peak v, S 1.61 m/sec ----- FS, LAX 33 % 25 - 43 VTI, S 37.9 cm ----- PW, ED, LAX (H) 1.2 cm 0.6 - 1.0 Mean grad, S 7.0 mm Hg ----- EF 63 % 52 - 72 Peak grad, S 10.0 mm Hg ----- E', lat rodrigo, TDI (L) 5.2 cm/sec >=10.0 SARAH, VTI 2.45 cm^2 --- -- E/e', lat rodrigo, 39 SARAH, Vmax 2.75 cm^2 ----- TDI Mitral valve Value Ref LVOT Value Ref Peak E 2.03 m/sec ----- Diam, S 2.00 cm Decel time 189 ms ----- Area 3.1 cm^2 PHT 103 ms ----- Peak brittany, S 1.41 m/sec Mean grad, D 7.0 mm Hg ----- Peak grad, S 8 mm Hg Peak grad, D 18.0 mm Hg ----- Mean grad, S 4 mm Hg MVA 1.6 cm^2 ----- MVA, PHT 2.3 cm^2 ----- Ventricular septum Value Ref IVS, ED (H) 1.4 cm 0.6 - 1.0 Pulmonic valve Value Ref Peak v, S 0.85 m/sec ----- Right ventricle Value Ref Peak grad, S 3.0 mm Hg ----- SOFÍA, LAX 2.6 cm SOFÍA minor ax, A4C (L) 1.8 cm 1.9 - 3.5 Tricuspid valve Value Ref mid TR peak v 2.64 m/sec <=2.8 Pressure, S 36 mm Hg Peak RV-RA grad, S 28 mm Hg ----- Left atrium Value Ref Aortic root Value Ref AP dim, ES (H) 4.60 cm 3.00 - Root diam 3.0 cm <4.1 4.00 ML dim, A4C 4.9 cm Pulmonary artery Value Ref SI dim, A4C 5.9 cm Pressure, S 33.0 mm Hg ----- Vol/bsa, ES, A/L (H) 46 ml/m^2 16 - 34 Inferior vena cava Value Ref Right atrium Value Ref Diam 2.6 cm ----- SI dim, ES 4.8 cm 3.4 - 5.3 ML dim, ES, A4C 3.8 cm 2.6 - 4.4 Estimated RAP 8 mm Hg Legend: (L) and (H) luis f values outside specified reference range. Prepared and electronically signed by Abbe Armstrong MD 11/25/2018 16:32
[2018-11-25] MEDS: Metoprolol Succinate XL TAB* 25 MG PO SCH (21:03)
[2018-11-26] MEDS ORDERED: Melatonin 3 MG TAB PO PRN (01:17)
[2018-11-26] MEDS ORDERED: LORazepam INJ* 2 MG/ML 1 ML VIAL IV PUSH SCH ×2 (01:30→11:21)
[2018-11-26] MEDS: Heparin VIAL(*) 5000 UNITS/ML VIAL (FIVE THOUSAND) SUBCUT SCH ×3 (06:38→21:56)
[2018-11-26] MEDS: levETIRAcetam IV* 750 MG in NS 0.9% 100 ML* 100 ML IVPB SCH ×3 (06:39→22:53)
[2018-11-26] MEDS: Levothyroxine TAB* 25 MCG TAB PO SCH (06:41)
[2018-11-26] MEDS: Tiotropium CAP.INH* CAP.INH/18 MCG (USE ORDER SET !) INH SCH (07:38)
[2018-11-26] MEDS: Thiamine TAB* 100 MG TAB PO SCH (10:41)
[2018-11-26] MEDS: DOXYcycline CAP(*) 100 MG PO SCH (10:41)
[2018-11-26] MEDS: Sertraline* 100 MG TAB PO SCH (10:41)
[2018-11-26] MEDS: Cilostazol TAB* 100 MG PO SCH ×2 (10:41→22:02)
[2018-11-26] MEDS: Diltiazem CD CAP* 240 MG PO SCH (10:43)
[2018-11-26] MEDS: Atorvastatin* 20 MG TAB PO SCH (10:43)
[2018-11-26] MEDS: Aspirin EC TAB* 81 MG TAB.EC PO SCH (10:44)
[2018-11-26] MEDS: Tamsulosin CAP* 0.4 MG PO SCH (10:44)
[2018-11-26] MEDS: Folic Acid TAB* 1 MG PO SCH (10:44)
[2018-11-26] MEDS: Multivitamins/Minerals TAB PO SCH (10:44)
[2018-11-26] MEDS: Nicotine PATCH 21 MG/24 HR* PATCH TRANSDERM SCH (10:45)
[2018-11-26] MEDS: Divalproex ER TAB(*) 500 MG PO SCH ×2 (10:45→11:15)
[2018-11-26] MEDS ORDERED: Furosemide IV* 10 MG/ML 2 ML VIAL (20 MG) IV SLOW PU ONE (11:16)
--- NOTE | 2018-11-26 11:22 | PN ---
Subjective Date of Service: 11/26/18 Interval History: Noted to be sleepy today by RN. Did receive ativan overnight on [facility] protocol around 2AM Wakes easily with liset brown but does fall back asleep easily as well. Able to carry out full conversation Indicates breathing much better since admission +cough OOB walking on floor yesterday Objective Active Medications: Albuterol/Ipratropium (Duoneb (Albuterol 2.5 Mg/Ipratropium 0.5 Mg)) 1 neb INH Q4H PRN PRN Reason: SOB/WHEEZING Aspirin (Aspirin Ec Tab*) 81 mg PO DAILY [facility] Last Admin: 11/26/18 10:44 Dose: 81 mg Atorvastatin Calcium (Lipitor*) 20 mg PO DAILY [facility] Last Admin: 11/26/18 10:43 Dose: 20 mg Cilostazol (Pletal Tab*) 100 mg PO BID [facility] Last Admin: 11/26/18 10:41 Dose: 100 mg Digoxin (Lanoxin Tab*) 0.125 mg PO DAILY@1700 [facility] Last Admin: 11/25/18 16:25 Dose: 0.125 mg Diltiazem HCl (Cardizem Cd Cap*) 240 mg PO DAILY [facility] Last Admin: 11/26/18 10:43 Dose: 240 mg Divalproex Sodium (Depakote Er Tab(*)) 1,500 mg PO QAM [facility] Last Admin: 11/26/18 11:15 Dose: 1,500 mg Doxycycline Hyclate (Vibramycin Cap(*)) 100 mg PO BID [facility] Last Admin: 11/26/18 10:41 Dose: 100 mg Folic Acid (Folvite Tab*) 1 mg PO DAILY [facility] Last Admin: 11/26/18 10:44 Dose: 1 mg Furosemide (Lasix Iv*) 20 mg IV SLOW PU ONCE ONE Stop: 11/26/18 11:17 Heparin Sodium (Porcine) (Heparin Vial(*)) 5,000 units SUBCUT Q8HR [facility] Last Admin: 11/26/18 06:38 Dose: 5,000 units Hydralazine HCl (Apresoline Iv*) 5 mg IV SLOW PU Q6H PRN PRN Reason: SBP > 185 Levetiracetam 750 mg/ Sodium (Chloride) 107.5 mls @ 410 mls/hr IVPB Q8H [facility] Last Admin: 11/26/18 06:39 Dose: 410 mls/hr Levothyroxine Sodium (Synthroid Tab*) 25 mcg PO DAILY@0600 [facility] Last Admin: 11/26/18 06:41 Dose: 25 mcg Lorazepam (Ativan Inj*) 0 - 6 mg IV PUSH .PER [facility] PROTOCOL [facility]; Protocol Last Admin: 11/26/18 02:12 Dose: 2 mg Melatonin (Melatonin) 1 mg PO BEDTIME PRN PRN Reason: SLEEP Metoprolol Succinate (Toprol Xl Tab*) 25 mg PO BEDTIME [facility] Last Admin: 11/25/18 21:03 Dose: 25 mg Miscellaneous (Ativan Pyxis Bower) 1 ea N/A .ATIVAN IV BOWER PRN PRN Reason: PYXIS BOWER Mometasone Furoate/Formoterol Fumar (Dulera 200/5 Mdi*) 2 puff INH BID [facility] Multivitamins/Minerals (Theragran/Minerals Tab*) 1 tab PO DAILY [facility] Last Admin: 11/26/18 10:44 Dose: 1 tab Nicotine (Nicotine Patch 21 Mg/24 Hr*) 1 patch TRANSDERM DAILY@0800 [facility] Last Admin: 11/26/18 10:45 Dose: Not Given Sertraline HCl (Zoloft*) 200 mg PO DAILY [facility] Last Admin: 11/26/18 10:41 Dose: 200 mg Tamsulosin HCl (Flomax Cap*) 0.4 mg PO DAILY [facility] Last Admin: 11/26/18 10:44 Dose: 0.4 mg Thiamine HCl (Vitamin B-1 Tab*) 100 mg PO DAILY [facility] Last Admin: 11/26/18 10:41 Dose: 100 mg Tiotropium Finger (Spiriva Cap.Inh*) 1 cap INH DAILY [facility] Last Admin: 11/26/18 07:38 Dose: 1 cap Vital Signs - 8 hr 11/26/18 11/26/18 11/26/18 03:53 04:21 06:55 Temperature 97.9 F 97.7 F Pulse Rate 95 114 Respiratory 18 17 16 Rate Blood Pressure 151/100 159/105 (mmHg) O2 Sat by Pulse 94 92 Oximetry 11/26/18 07:41 Temperature Pulse Rate 95 Respiratory 16 Rate Blood Pressure (mmHg) O2 Sat by Pulse 92 Oximetry Oxygen Devices in Use Now: None Appearance: wakes easily from sleep, NAD, pleasant Ears/Nose/Mouth/Throat: NL Teeth, Lips, Gums, Clear Oropharnyx Neck: NL Appearance and Movements; NL JVP, Trachea Midline Respiratory: Symmetrical Chest Expansion and Respiratory Effort, - - faint rales right base up 1/3 Cardiovascular: NL Sounds; No Murmurs; No JVD, RRR Abdominal: - - +bs, NTTP, ND, lumpy feeling diffusely- pt indicates subQ lipomas Extremities: No Edema Skin: No Rash or Ulcers Neurological: Alert and Oriented x 3 Result Diagrams: 11/24/18 08:51 11/25/18 05:14 Microbiology and Other Data: Microbiology 11/24/18 08:51 Aerobic Blood Culture - Preliminary Blood Venous No Growth Day 2 Anaerobic Blood Culture - Preliminary No Growth Day 2 11/24/18 08:51 Aerobic Blood Culture - Preliminary Blood Venous No Growth Day 2 Anaerobic Blood Culture - Preliminary No Growth Day 2 11/24/18 16:26 Legionella Urinary Antigen - Final Urine Negative Legionella Antigen Streptococcus pneumoniae Ag Screen - Final Negative S. pneumo Antigen 11/24/18 12:50 Nasal Screen MRSA (PCR) - Final Nasal Mrsa Not Detected 11/24/18 09:21 Gram Stain - Final Sputum Expectorated Assess/Plan/Problems-Billing Assessment: 63 yo M h/o afib sp PPM, bioMVR, alcohol abuse, COPD, bipolar, seizure do, tobacco abuse pw respiratory failure thought in setting of volume overload with need for ICU now transferred to medical floors - Patient Problems (1) Acute respiratory failure with hypoxia Comment: improved lasix rales present on exam lasix 20mg IV now ambulate (2) Seizure disorder Comment: continue depakote and keppra (3) COPD (chronic obstructive pulmonary disease) Comment: takes breo ellipta at home start dulera today 11/26 (4) Pneumonia Comment: not identified on CT chest on presentation stop abx 11/26 (5) Alcohol abuse Comment: continue WAM but decreased quantity of lorazepam delivered if scores appropriately (6) DVT prophylaxis Comment: HSQ
[2018-11-26] MEDS: Digoxin TAB* 0.125 MG PO SCH (16:59)
[2018-11-26] MEDS: Mometasone/Formoter 200/5 MDI INH SCH (20:11)
[2018-11-26] MEDS: Metoprolol Succinate XL TAB* 25 MG PO SCH (22:02)
[2018-11-27] MEDS: Levothyroxine TAB* 25 MCG TAB PO SCH (08:06)
[2018-11-27] MEDS: Heparin VIAL(*) 5000 UNITS/ML VIAL (FIVE THOUSAND) SUBCUT SCH (08:06)
[2018-11-27] MEDS ORDERED: levETIRAcetam IV* 750 MG in NS 0.9% 100 ML* 100 ML IVPB SCH (08:30)
[2018-11-27] MEDS: Folic Acid TAB* 1 MG PO SCH (09:36)
[2018-11-27] MEDS: Tamsulosin CAP* 0.4 MG PO SCH (09:36)
[2018-11-27] MEDS: Atorvastatin* 20 MG TAB PO SCH (09:36)
[2018-11-27] MEDS: Multivitamins/Minerals TAB PO SCH (09:37)
[2018-11-27] MEDS: Sertraline* 100 MG TAB PO SCH (09:37)
[2018-11-27] MEDS: Diltiazem CD CAP* 240 MG PO SCH (09:37)
[2018-11-27] MEDS: Aspirin EC TAB* 81 MG TAB.EC PO SCH (09:37)
[2018-11-27] MEDS: Nicotine PATCH 21 MG/24 HR* PATCH TRANSDERM SCH (09:38)
[2018-11-27] MEDS: Divalproex ER TAB(*) 500 MG PO SCH (09:38)
[2018-11-27] MEDS: Thiamine TAB* 100 MG TAB PO SCH (09:38)
[2018-11-27] MEDS: Cilostazol TAB* 100 MG PO SCH (09:38)
[2018-11-27] MEDS: Mometasone/Formoter 200/5 MDI INH SCH (10:13)
[2018-11-27] MEDS: Tiotropium CAP.INH* CAP.INH/18 MCG (USE ORDER SET !) INH SCH (10:14)
[2018-11-27] MEDS: levETIRAcetam IV* 750 MG in NS 0.9% 100 ML* 100 ML IVPB SCH (11:19)
[2018-11-27 12:24] VITALS: BP 153/69
--- NOTE | 2018-11-27 22:16 | DS ---
CC: Dr. Lewis* DISCHARGE SUMMARY: DATE OF ADMISSION: 11/24/18 DATE OF DISCHARGE: 11/27/18 PRIMARY CARE PROVIDER: Louie Lewis MD. DISPOSITION: Discharge to home. CONDITION ON DISCHARGE: Improved. PRIMARY DIAGNOSES: 1. Acute hypoxemic respiratory failure secondary to acute diastolic heart failure exacerbation. 2. Chronic obstructive pulmonary disease exacerbation. 3. 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 SECONDARY DIAGNOSES: Include: 1. Seizure disorder. 2. Alcohol abuse, not confirmed to be presently active. MEDICATIONS ON DISCHARGE: Include: 1. Lorazepam 2 mg twice daily as needed. 2. Folic acid 1 mg daily. 3. Breo Ellipta 1 puff inhaled daily. 4. Depakote ER 1500 mg in the morning. 5. Cardizem CD 240 mg daily. 6. Digoxin 0.125 mg daily. 7. Cilostazol 100 mg twice daily. 8. Atorvastatin 20 mg daily. 9. Aspirin 81 mg daily. 10. Incruse Ellipta 1 puff inhaled daily. 11. Spiriva 2 caps inhaled daily. 12. Thiamine 100 mg daily. 13. Tamsulosin 0.4 mg daily. 14. Zoloft 200 mg daily. 15. Nicotine patch transdermally. 16. Multivitamin 1 daily. 17. Metoprolol succinate 25 mg at bedtime. 18. Levothyroxine 25 mcg daily. 19. Keppra 750 mg 3 times a day. PERTINENT IMAGING STUDIES: CTA chest and thorax, impression: No definite pulmonary embolism is noted. No evidence of aortic dissection. Interstitial edema with bilateral pleural effusion, suspicious for CHF. Moderate mediastinal adenopathy, which has not significantly changed from August 2018. Nodule in the left lower lobe unchanged since previous exam. Transthoracic echocardiogram, impression: Left ventricular systolic function is estimated 65% to 70% with dynamic obstruction of the left ventricular outflow tract with peak gradient of 25 to 30. Mitral valve bioprosthesis with normal function. Aortic valve, no evidence of stenosis. Tricuspid valve, mild regurgitation. Right ventricular systolic pressure is mildly increased. HISTORY OF PRESENT ILLNESS AND HOSPITAL COURSE: This is a 63-year-old man with past medical history as outlined in the history of present illness on the day of admission, presented to the hospital with shortness of breath as well as new oxygen requirement. The patient was suspected to have a COPD exacerbation. After admission to the hospital, had acute decompensation in breathing, transferred to the ICU, thought to be in decompensated heart failure exacerbation, potentially in conjunction with COPD, was placed on noninvasive ventilation BiPAP 06/13, diuresed with improvement, transferred to floor, diuresis continued. On the day of discharge, was on room air, able to ambulate without difficulty. Lasix was not added to the patient's regimen as he had remained euvolemic in the absence of additional Lasix and a suspicion that addition of fluid boluses in the emergency room contributed to his decompensated heart failure exacerbation. There were no complications during the course of this hospital stay. At followup, please: 1. Evaluate for the need of Lasix based on clinical setting and respiratory status going forward. 2. No other specific labs or vitals that need followup. Reasons to return to the hospital include, but are not limited to, recurrent or worsening symptoms, chest pain, shortness of breath, nausea, vomiting, lightheadedness, loss of consciousness, near loss of consciousness, bleed from any source, or inability to obtain or tolerate medications discussed with the patient and he acknowledged understanding. TIME SPENT: Greater than 45 minutes was spent on discharge of this patient of which greater than half was spent [id number] with the patient. [id number]/[facility] #: [id number] YARIEL
== END 2018-11-27 13:30 | disposition home or self-care (01) | DRG 291 ==
LOC: ED 08:27 → MEDTELE 10:25 → ICU 11:24 → OBSVTOIN 11:24 → MEDTELE 11-25 09:45
PROVIDERS: ADMIT Internal Medicine; ATTEND Internal Medicine
PROC: 5A09357 Assistance with Respiratory Ventilation, Less than 24 Consecutive Hours, Continuous Positive Airway Pressure (ICD-10-PCS; principal; 2018-11-24)
DX: I11.0 Hypertensive heart disease with heart failure (principal); J96.01 Acute respiratory failure with hypoxia; J44.1 Chronic obstructive pulmonary disease with (acute) exacerbation; E87.1 Hypo-osmolality and hyponatremia; I50.33 Acute on chronic diastolic (congestive) heart failure; G40.909 Epilepsy, unspecified, not intractable, without status epilepticus; F10.10 Alcohol abuse, uncomplicated; Y90.9 Presence of alcohol in blood, level not specified; R91.1 Solitary pulmonary nodule; I07.1 Rheumatic tricuspid insufficiency; G62.9 Polyneuropathy, unspecified; F31.9 Bipolar disorder, unspecified; I73.9 Peripheral vascular disease, unspecified; R79.1 Abnormal coagulation profile; H26.9 Unspecified cataract; F41.0 Panic disorder [episodic paroxysmal anxiety]; F43.10 Post-traumatic stress disorder, unspecified; F17.210 Nicotine dependence, cigarettes, uncomplicated; K43.9 Ventral hernia without obstruction or gangrene; I49.3 Ventricular premature depolarization; I48.2 Chronic atrial fibrillation; E78.5 Hyperlipidemia, unspecified; Z79.82 Long term (current) use of aspirin; Z79.51 Long term (current) use of inhaled steroids; Z79.890 Hormone replacement therapy; Z95.2 Presence of prosthetic heart valve; Z95.810 Presence of automatic (implantable) cardiac defibrillator; Z91.5 Personal history of self-harm; Z95.1 Presence of aortocoronary bypass graft; Z86.11 Personal history of tuberculosis; Z81.1 Family history of alcohol abuse and dependence; Z81.8 Family history of other mental and behavioral disorders
CPT/HCPCS: 36415; 36600; 71045; 71275; 80048; 80053; 80164; 80320; 82803; 83605; 83880; 84484; 85025; 85379; 85610; 86140; 87040; 87070; 87077; 87186; 87205; 87641; 87899; 93005; 93306; 94640; 94660; 99285; 99406; A9270-GY; G0480; J0360; J0456; J0696; J1644; J1940; J2060; J2270; J2930; J3475; J7512; Q9967

== ENCOUNTER 2018-12-18 14:31 | Inpatient (IN) | payer MEDICARE, MEDICAID ==
--- NOTE | 2018-12-18 14:44 | ED ---
Psychiatric Complaint - HPI Summary HPI Summary: Patient is a 63 y/o M presenting to ED via EMS under 945 for SI. It is reported that at [facility] today, the patient made suicidal statements. In the room, he reports Hx of "rapid-cycling" bipolar disorder. He reports that he has been feeling depressed. Patient states, "I wish I weren't doing this anymore". He claims to have low self-esteem and states "I wish I didn't have to wake up tomorrow". Patient notes that he had two beers today. Home medications and allergies are reviewed. - History Of Current Complaint Hx Obtained From: Patient Onset/Duration: Still Present Timing: Constant Severity Currently: None Character: Depressed Aggravating Factor(s): Nothing Alleviating Factor(s): Nothing Associated Signs And Symptoms: Positive: Negative Has Suicidal: Reports: Thoughts - Allergies/Home Medications Allergies/Adverse Reactions: Allergies Allergy/AdvReac Type Severity Reaction Status Date / Time No Known Allergies Allergy Verified 06/18/18 14:24 PMH/Surg Hx/FS Hx/Imm Hx Endocrine/Hematology History: Reports: Hx Anticoagulant Therapy Denies: Hx Diabetes, Hx Thyroid Disease Cardiovascular History: Reports: Hx Auto Implanted Cardiovert Defib, Hx Hypertension, Hx Pacemaker/ICD - [employer] -GUIANDANT - NOT MR SAFE/ CONDITIONAL, Hx Peripheral Vascular Disease, Hx Valvular Heart Disease - Recent valve replacement surgery, Other Cardiovascular Problems/Disorders - Hx Atrial Fibrillation and was treatment with Warfarin which has been d/c'd Respiratory History: Reports: Hx Chronic Bronchitis, Hx Chronic Obstructive Pulmonary Disease (COPD), Other Respiratory Problems/Disorders - poss aspiration Denies: Hx Asthma History: Reports: Other Problems/Disorders - History of SIADH Denies: Hx Renal Disease Musculoskeletal History: Reports: Other Musculoskeletal History - peripheral neuropathy Denies: Hx Arthritis, Hx Osteoporosis Sensory History: Reports: Hx Cataracts, Hx Contacts or Glasses Denies: Hx Hearing Aid Opthamlomology History: Reports: Hx Cataracts, Hx Contacts or Glasses Neurological History: Reports: Hx Seizures, Other Neuro Impairments/Disorders - PERIPHERAL NEUROPATHY Denies: Hx Dementia Psychiatric History: Reports: Hx Anxiety, Hx Depression, Hx Panic Disorder, Hx Post Traumatic Stress Disorder, Hx Inpatient Treatment, Hx Community Mental Health Tx, Hx Bipolar Disorder, Hx Suicide Attempt, Hx of Violent Episodes Against Others, Hx Substance Abuse - ETOH, Other Psychiatric Issues/Disorders - has had ECT treatment Denies: Hx Attention Deficit Hyperactivity Disorder, Hx Eating Disorder, Hx Schizophrenia - Surgical History Surgery Procedure, Year, and Place: CABG, PACEMAKER Hx Anesthesia Reactions: No - Immunization History Date of Tetanus Vaccine: PT STATES UNSURE Date of Influenza Vaccine: NONE Infectious Disease History: Reports: Hx Tuberculosis - hx of inactive TB Denies: Hx Clostridium Difficile, Hx Hepatitis, Hx Human Immunodeficiency Virus (HIV), Hx of Known/Suspected MRSA, Hx Shingles, Hx Known/Suspected VRE, Hx Known/Suspected VRSA, History Other Infectious Disease - Family History Known Family History: Positive: Other - Mother -- depression, Father -- EtOH abuse - Social History Alcohol Use: Daily Alcohol Amount: 6 beers and 1 pint Hx Substance Use: Yes Substance Use Type: Reports: Marijuana Substance Use Comment - Amount & Last Used: Last used Sunday Hx Tobacco Use: Yes Smoking Status (MU): Heavy Every Day Tobacco Smoker Type: Cigarettes Amount Used/How Often: 1/2 PPD Length of Time of Smoking/Using Tobacco: 40 YRS Have You Smoked in the Last Year: Yes Review of Systems Constitutional: Other - positive - alcohol consumption Negative: Fever - temp 97 F Positive: Depressed All Other Systems Reviewed And Are Negative: Yes Physical Exam - Summary Physical Exam Summary: VITAL SIGNS: Reviewed. GENERAL: Patient is a well-developed and nourished male who is lying comfortable in the stretcher. Patient is not in any acute respiratory distress. HEAD AND FACE: No signs of trauma. No ecchymosis, hematomas or skull depressions. No sinus tenderness. EYES: PERRLA, EOMI x 2, No injected conjunctiva, no nystagmus. EARS: Hearing grossly intact. Ear canals and tympanic membranes are within normal limits. MOUTH: Oropharynx within normal limits. NECK: Supple, trachea is midline, no adenopathy, no JVD, no carotid bruit, no c- spine tenderness, neck with full ROM. CHEST: Symmetric, no tenderness at palpation LUNGS: Clear to auscultation bilaterally. No wheezing or crackles. CVS: Regular rate and rhythm, S1 and S2 present, no murmurs or gallops appreciated. ABDOMEN: Soft, non-tender. No signs of distention. No rebound no guarding, and no masses palpated. Bowel sounds are normal. EXTREMITIES: FROM in all major joints, no edema, no cyanosis or clubbing. NEURO: Alert and oriented x 3. No acute neurological deficits. Speech is normal and follows commands. GCS 15. PSYCH: Depressed, quiet, he endorses SI. No homicidal thoughts or plan. No signs of psychosis or pressure speech. No tangential speech SKIN: Dry and warm. Triage Information Reviewed: Yes Vital Signs On Initial Exam: Initial Vitals Temp Pulse Resp BP Pulse Ox 97 F 73 16 65/44 97 12/18/18 14:40 12/18/18 14:40 12/18/18 14:40 12/18/18 14:40 12/18/18 14:40 Vital Signs Reviewed: Yes - Romaine Coma Scale Best Eye Response: 4 - Spontaneous Best Motor Response: 6 - Obeys Commands Best Verbal Response: 5 - Oriented Coma Scale Total: 15 Diagnostics - Laboratory Result Diagrams: 12/18/18 15:29 12/18/18 15:29 Lab Statement: Any lab studies that have been ordered have been reviewed, and results considered in the medical decision making process. - Radiology CXR Radiology Interpretation Completed By: Radiologist Summary of Radiographic Findings: IMPRESSION: FINDINGS SUGGESTIVE OF CONGESTIVE HEART FAILURE, LESS LIKELY PNEUMONIA. THIS REPORT WAS REVIEWED BY DR. QUINTERO. - CT BRAIN CT CT Interpretation Completed By: Radiologist Summary of CT Findings: IMPRESSION: 1. NO EVIDENCE FOR ACUTE INTRACRANIAL ABNORMALITY. 2. FINDINGS SUGGESTIVE OF CHRONIC PANSINUSITIS. THIS REPORT WAS REVIEWED BY DR. QUINTERO. - EKG 1616 Cardiac Rate: Other Rate - afib with rate of 93 BPM EKG Rhythm: Atrial Fibrillation EKG Comparison: No Significant Change - similar to previous EKG done on 09/24/18 Summary of EKG Findings: EKG showed afib with rate of 93 BPM, RBBB, similar to previous EKG done on 09/24/18. Dr. Quintero has interpreted and reviewed this EKG. Re-Evaluation - Re-Evaluation First Eval Re-Evaluation Time: 17:45 Comment: Results of labs and tests were discussed, patient is agreeable with admission. Course/Dx - Course Assessment/Plan: Patient is a 63 y/o M presenting to ED via EMS under 945 for SI. It is reported that at [facility] today, the patient made suicidal statements. In the room, he reports Hx of "rapid-cycling" bipolar disorder. He reports that he has been feeling depressed. Patient states, "I wish I weren't doing this anymore ". He claims to have low self-esteem and states "I wish I didn't have to wake up tomorrow". Patient notes that he had two beers today. Past medical history significant for. 1- Seizure disorder. 2- Bipolar disorder. 3- History of back soft abuse. 4- Hypertension. 5- Peripheral neuropathy. 6- COPD. 7- Traumatic brain injury. 8- Atrial fibrillation on platel, aspirin and digoxin. 9- Alcohol abuse,. 10- Hyponatremia. In the ED course the patient was started with IV fluids, since the patient is hypotensive. I also started with a banana bag since the patient is an alcoholic and he reports that he was drinking. The patients blood pressure did not increase as expected, the patient is still hypotensive therefore we obtained a second IV access and the patient was started with more IV fluids boluses and blood pressure is 104/66. The patient is mentating better and he reports that he has been having productive cough with yellowish phlegm. Therefore I started the patient and Rocephin and azithromycin. Chest x-ray impression: Findings suggestive of congestive heart failure, less likely pneumonia. However, because the patient s symptoms I believe that the patient also may be developing pneumonia. The patient is more hemodynamically stable however I believe that the patient would benefit of admission to medicine. Therefore discussed my physical exam and findings with Dr. Barrios from the hospitalist services who accepted the patient for admission. - Differential Dx/Clinical Impression Provider Diagnosis: Pneumonia, Hypotension, CHF (congestive heart failure) - Physician Notifications Discussed Care Of Patient With: Alivia Barrios Time Discussed With Above Provider: 17:51 Instructed by Provider To: Other - Patient's case was discussed with Dr. Barrios , Dr. Barrios accepts for admission. - Critical Care Time Critical Care Time: 30-74 min Discharge - Sign-Out/Discharge Documenting (check all that apply): Patient Departure - ADMIT Patient Received Moderate/Deep Sedation with Procedure: No - Discharge Plan Condition: Good Disposition: ADMITTED TO [facility] - Billing Disposition and Condition Condition: GOOD Disposition: Admitted to [facility] - Attestation Statements Document Initiated by Scribe: Yes Documenting Scribe: GUEVARA ROBLES Provider For Whom Scribe is Documenting (Include Credential): PHILLIP QUINTERO MD Scribe Attestation: I, GUEVARA ROBLES, scribed for PHILLIP QUINTERO MD on 12/18/18 at 2146. Scribe Documentation Reviewed: Yes Provider Attestation: The documentation as recorded by the scribeGUEVARA accurately reflects the service I personally performed and the decisions made by me, PHILLIP QUINTERO MD Status of Scribe Document: Viewed
[2018-12-18] MEDS ORDERED: Thiamine IV* 100 MG, Folic Acid IV* 1 MG, Multiple Vitamin IV ADULT* 10 ML in NS 0.9% 1... IV ONE (15:12)
[2018-12-18] MEDS ORDERED: NS 0.9% 1000 ML** 1,000 ML IV ONE ×2 (15:12→16:03)
[2018-12-18 15:40] LABS: ABS Eosinophils 0.1 10^3/ul (0-0.6); ABS Lymphocytes 1.3 10^3/ul (1.0-4.8); ABS Monocytes 0.4 10^3/ul (0-0.8); ABS Neutrophils 3.5 10^3/ul (1.5-7.7); Eosinophil % 1.8 %; Hematocrit 37 % (42-52); Hemoglobin 12.4 g/dL (14.0-18.0); Lymphocyte % 23.9 %; Mean Corpuscular HGB Conc 34 g/dL (31-36); Mean Corpuscular Hemoglobin 30 pg (27-31); Mean Corpuscular Volume 89 fL (80-94); Nucleated Red Blood Cells % 0.1; Platelet Count 247 10^3/uL (150-450); Red Cell Distribution Width 16 % (10-15); White Blood Count 5.3 10^3/uL (3.5-10.8)
--- OUTSIDE RECORDS SUMMARY | 2018-12-18 15:45 | XMS REPORT | Continuity of Care Document ---
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 Onset: 01/20/2015 Atrial fibrillation Kellee Bangura M.D. Onset: 03/07/2016 Replacement of mitral valve Kellee Bangura M.D. Onset: 03/07/2016 Cardiac pacemaker in situ Kellee Banguar M.D. Onset: 03/07/2016 Bipolar disorder Kellee Bangura M.D. Onset: 03/07/2016 Chronic obstructive lung disease Kellee Bangura M.D. Onset: 07/14/2015 Generalized convulsive epilepsy Avtar Ring M.D. Onset: 03/07/2016 Alcohol dependence Kellee Bangura M.D. Onset: 03/07/2016 Smoker Kellee Bangura M.D. Onset: 03/07/2016 Essential hypertension Kellee Bangura M.D. Onset: 10/26/2016 Atherosclerotic heart disease of [place] coronary Kellee Bangura M.D. Onset: artery without [...] Medications SIG Qnty Indications Ordering Provider Date Tamsulosin HCL Take One Capsule 30caps E87.1 Autumn Schafer 08/22/2018 0.4mg By Mouth Once MD Debbie Capsules Daily Zoloft 2 tab by mouth 60tabs Autumn Schafer 06/28/2017 100mg Tablets every day MD Debbie Cilostazol 1 tab twice day 60tabs I73.9 Autumn Schafer 05/07/2017 100mg MD Debbie Tablets Breo Ellipta 1 puff every day 1units Avtar Ring M.D. 03/11/2015 100-25mcg/Inh Aerosol Multi Vitamin once daily otc Unknown Tablets Nicotine Step 1 1 patch daily, Unknown remove prior 21mg/24HR Patches patch, no smoking 24HR on patch Thiamine HCL 1 by mouth every Unknown 100mg day Tablets Spiriva Handihaler inhale contents Unknown one of capsule by 18mcg Capsules mouth twice daily Aspirin Low Strength Unknown 81mg Chewtabs Atorvastatin Calcium 1 by mouth every Unknown day 20mg Tablets Diltiazem CD 1 by mouth every Unknown 240mg Caps day ER 24HR Folic Acid 1 by mouth every Unknown 1mg Tablets day Digoxin 150mcg 1 po qd Unknown Incruse Ellipta 1 puff daily Unknown 62.5mcg/Inh Aerosol Divalproex Sodium ER Take Three 90tabs Autumn Keating Tablets By Mouth Radames Lou 500mg Tablets ER 24HR Once Daily In The Morning History Medications Fluticasone 1 spray each 16gm Casandra Gunderson 11/23/2018 - Propionate nostril every JEFFREY Michelle 12/04/2018 50mcg/Act day-generic Suspension Hydrocodone-Acetamin 1 tab by mouth 21tabs S01.01x Autumn Schafer 11/13/2018 - ophen every 8 hours as D MD Debbie 12/04/2018 10-325mg needed Tablets Digoxin 1 by mouth every Autumn Schafer 11/13/2018 - 250mcg day MD Debbie 11/13/2018 Tablets Metoprolol Succinate 2 by mouth every 30tabs Autumn Schafer 08/29/2018 - ER day MD Debbie 12/04/2018 25mg Tablets ER 24HR Lorazepam take one by mouth 60tabs F41.1 Autumn Schafer 11/02/2017 - 2mg Tablets two times a day MD Debbie 12/04/2018 Ondansetron HCL Autumn Schafer 09/28/2017 - 8mg MD Debbie 01/09/2018 Tablets Lunesta one nightly as 14tabs Autumn Schafer 09/20/2017 - 2mg Tablets needed for MD Debbie 10/12/2017 insomnia Hydrocodone-Acetamin 1 by mouth every 8 21tabs Casandra Gunderson 08/22/2017 - ophen hours as needed JEFFREY Michelle 12/04/2018 5-325mg Tablets Levetiracetam 1 po bid. 60tabs Autumn Schafer 07/30/2017 - 500mg MD Debbie 10/12/2017 Tablets Gabapentin 1 tab by mouth 60tabs Kellee Bangura 07/23/2017 - 600mg twice a day M.D. 01/16/2018 Tablets Aspir-81 1 by mouth every 90tabs Kellee Bangura 06/11/2017 - 81mg Tablets day M.D. 11/12/2018 DR Oxycodone HCL 1 tab by mouth q6 120tabs I73.9 [facility], 06/11/2017 - 5mg hours as needed M.D. 07/24/2017 Tablets Diclofenac Sodium apply 2-3 cm strip 100gm [facility], 06/11/2017 - 1% to neck three M.D. 11/12/2018 Gel times a day as needed Hydrocodone-Acetamin take 1q 4-5 hours 30tabs [facility], 06/11/2017 - ophen as needed as M.D. 06/11/2017 10-325mg needed for pain Tablets Hydroxyzine Pamoate 1 tab q4-6 hours 120caps F31.9 Autumn T. 05/07/2017 - as needed MD Debbie 11/12/2018 50mg Capsules Hydrocodone-Acetamin 1 tab by mouth 12tabs I73.9 [facility], 05/07/2017 - ophen every 8 hours as M.D. 06/07/2017 10-325mg needed Tablets Hydrocodone-Acetamin 1 by mouth every 8 30tabs [facility], 04/25/2017 - ophen hours as needed M.D. 05/07/2017 5-325mg Tablets Hydrocodone take one by mouth 20tabs [facility], 04/20/2017 - Bitartrate/Acetamino up to 4 times per M.D. 04/25/2017 phen day 2.5-325mg Tablets Gralise 1 tab by mouth 60tabs [facility], 12/01/2016 - 600mg Tablets twice a day M.D. 07/23/2017 Advair HFA take 2 inhalations 1units J44.9 [facility], 03/07/2016 - twice daily as M.D. 11/02/2017 230-21mcg/Act directed Aerosol Quetiapine Fumarate 1 tab at bedtime 30tabs F31.9 [facility], 2015 - M.D. 04/18/2016 100mg Tablets Zolpidem Tartrate 1 tab by mouth 15tabs [facility], 02/22/2016 - every night as M.D. 04/18/2016 10mg Tablets needed Ambien 1 tab by mouth 15tabs [facility], 02/07/2016 - 5mg Tablets every night as M.D. 02/22/2016 needed Ciclopirox Olamine apply to affected 30gm Eun 12/21/2015 - area on scrotum qd [facility], 01/20/2016 0.77% Cream [facility] Betamethasone apply sparingly to 30gm Eun 12/21/2015 - Valerate affected area qd [facility], 01/04/2016 0.1% [facility] Atrovent HFA 1 puff four times 12.900gm Kellee [place], 08/17/2015 - a day M.DBriseida 03/07/2016 17mcg/Act Aerosol Spiriva Respimat 2 puff [...] Ring M.D. 12/02/2014 - 500mg 03/07/2016 Tablets Gabapentin 2 tabs po qd am 60caps Avtar Ring M.D. 12/02/2014 - 400mg 03/07/2016 Capsules Aspirin Ec Lo-Dose 1 by mouth every Avtar Ring M.D. 12/02/2014 - day 04/18/[address] Braun 2 tab po qd 60tabs Avtar Ring M.D. 12/02/2014 - 500mg Tablets 07/24/2017 Zoloft 1 by mouth bid 30tabs Avtar Ring M.D. 12/02/2014 - 100mg Tablets 03/07/2016 Levetiracetam take one tablet by Unknown - 750mg mouth tid a day 12/04/2018 Tablets Levothyroxine Sodium 1 by mouth every Unknown [...] Zoloft 1 by mouth every 90tabs Kellee Bangura, - 100mg Tablets day M.D. 06/28/2017 Xarelto 1 by mouth every Unknown - 20mg Tablets day 06/11/2017 Metoprolol Tartrate 1 by mouth daily Unknown - 10/19/2016 25mg Tablets Diltiazem CD 1 by mouth every Unknown - 120mg day 12/04/2018 Caps ER 24HR Sertraline HCL 1 by mouth every Unknown [...] CPT Code Status Date Vaccine Lot # [id number] Given 04/05/2018 Pneumococcal Immunization [id number] Given 04/05/2018 Influenza Vac, Quadrivalent, Slit Virus, Im [id number] Given 05/18/2016 Influenza Vac, Quadrivalent, Slit Virus, Im [id number] Given 05/31/2015 Influenza Vac, Quadrivalent, Slit Virus, Im [id number] 13547 Given 05/05/2014 Pneumococcal Conjugate Vacc-13 [id number] Given 03/25/2012 DO Not Use Split Influenza Virus Vaccine Vital Signs Date Vital Result Comment 12/04/2018 12:14pm BP Systolic 96 mmHg BP Diastolic 58 mmHg Heart Rate 80 /min Body Temperature 96.7 F Respiratory Rate 18 /min Height 68.5 inches 5'8.50" Weight 165.00 lb BMI (Body Mass Index) 24.7 kg/m2 11/13/2018 11:35am BP Systolic 108 mmHg BP [...] Date Facility Test Result H/L Range Note Inr/Protime 11/24/2018 [facility] Inr 1.11 High 0.82-1.09 1 Laboratory test 11/24/2018 [facility] D Dimer 932 ng/mL High Less Than 2 finding Quantitative 230 Arterial Blood 11/24/2018 [facility] PH Arterial 7.41 N 7.35-7.45 Gas Pco2 Arterial 36 mmHg N 35-45 Po2 Arterial 89 mmHg N 80-100 O2 Saturation Arterial 98.3 % High 94.0-98.0 Base Excess Arterial -1.4 mmol/L N -2.0-2.0 3 Hco3 Arterial 23.7 mmol/L N - Laboratory test finding 11/24/2018 [facility] Lactic Acid 0.8 mmol/L N 0.5-2.0 4 CBC Auto Diff 11/24/2018 [facility] White Blood Count 6.6 10^3/uL N 3.5-10.8 Red Blood Count 4.15 10^6/uL Low 4.18-5.48 Hemoglobin 12.7 g/dL Low 14.0-18.0 Hematocrit 37 % Low 42-52 Mean Corpuscular Volume 89 fL N 80-94 Mean Corpuscular Hemoglobin 31 pg N 27-31 Mean Corpuscular HGB Conc 34 g/dL N 31-36 Red Cell Distribution Width 16 % High 10.5-15 Platelet Count 238 10^3/uL N 150-450 Mean Platelet Volume 7.4 fL N 7.4-10.4 Abs Neutrophils 4.9 10^3/uL N 1.5-7.7 Abs Lymphocytes 0.8 10^3/uL Low 1.0-4.8 Abs Monocytes 0.7 10^3/uL N 0-0.8 Abs Eosinophils 0.1 10^3/uL N 0-0.6 Abs Basophils 0.0 10^3/uL N 0-0.2 Abs Nucleated RBC 0.0 10^3/uL Granulocyte % 73.9 % Lymphocyte % 12.6 % Monocyte % 11.4 % Eosinophil % 1.6 % Basophil % 0.5 % Nucleated Red Blood Cells % 0.1 Laboratory test 11/24/2018 [facility] [place] B-Type Natriuretic 501 pg/mL High <=100 finding Peptide BNP Sputum Culture & 11/24/2018 [facility] [place] Sputum Culture SEE RESULT 5 Sensitiv Gram Stain BELOW Comp Metabolic Panel 11/24/2018 [facility] Sodium 124 mmol/L Low 135-145 Potassium 4.3 mmol/L N 3.5-5.0 Chloride 92 mmol/L Low 101-111 Co2 Carbon Dioxide 25 mmol/L N 22-32 Anion Gap 7 mmol/L N 2-11 Glucose 95 mg/dL N 70-100 Blood Urea Nitrogen 10 mg/dL N 6-24 Creatinine 0.85 mg/dL N 0.67-1.17 BUN/Creatinine Ratio 11.8 N 8-20 Calcium 9.0 mg/dL N 8.6-10.3 Total Protein 7.5 g/dL N 6.4-8.9 Albumin 3.9 g/dL N 3.2-5.2 Globulin 3.6 g/dL N 2-4 Albumin/Globulin Ratio 1.1 N 1-3 Total Bilirubin 0.70 mg/dL N 0.2-1.0 Alkaline Phosphatase 114 U/L High 34-104 Alt 13 U/L N 7-52 Ast 17 U/L N 13-39 Egfr Non- 91.0 >60 Egfr 110.2 >60 6 Laboratory test finding 11/24/2018 [facility] [place] C Reactive Protein 32.52 mg/L High <8.01 Troponin I 0.01 ng/mL <0.04 7 Valproic Acid (Depakene) 35.0 g/mL Low 50-100 Alcohol < 10 mg/dL N <10 Blood Culture SEE RESULT BELOW 8 Laboratory test 11/04/2018 [facility] Digoxin, 0.8 ng/mL 0.5-0.9 9, 10 finding [address] [place] [address] (607)- - Laboratory test 10/23/2018 [facility] Digoxin, 1.8 ng/mL High 0.5-0.9 11 finding [address] [place] [address] (604)- - Laboratory test 10/23/2018 [facility]) Magnesium, 1.7 mEq/L 1.2- 2.1 finding Serum Basic Metabolic 10/23/2018 [facility]) Sodium 128 mEq/L Low 134- 149 12 Profile Potassium 4.7 mEq/L 3.6-5.5 Chloride 91 mEq/L Low 94-112 13 Carbon Dioxide 25 mEq/L 21-32 Glucose 108 mg/dL High 70-105 14 BUN 10 mg/dL 6-26 Creatinine 0.9 mg/dL 0.6-1.4 BUN/Creat Ratio 11.1 CALC 8.0-36.0 Calcium 9.2 mg/dL 8.6-10.2 GFR Non- >60 ml/min/1.73m^ >=60 GFR >60 ml/min/1.73m^ >=60 CBC Auto Diff 09/24/2018 [facility] White Blood Count 6.1 10^3/uL N 3.5-10.8 Red Blood Count 4.28 10^6/uL N 4.18-5.48 [...] Red Blood Cells % 0 Inr/Protime 09/24/2018 [facility] Inr 0.99 N 0.77-1.02 Laboratory test finding 09/24/2018 [facility] [place] Partial Thrombo 27.8 seconds N 26.0-36.3 Time PTT Comp Metabolic Panel 09/24/2018 [facility] Sodium 128 mmol/L Low 135-145 Potassium 4.1 [...] Egfr Non- 76.3 >60 Egfr 92.4 >60 15 Laboratory test finding 09/24/2018 [facility] Magnesium 1.7 mg/dL Low 1.9-2.7 Alcohol < 10 mg/dL N <10 Troponin I 0.01 ng/mL <0.04 16 Digoxin 1.5 ng/ml N 0.8-2.0 TSH (Thyroid Stim Horm) 7.65 mcIU/mL High 0.34-5.60 Basic Metabolic 08/22/2018 [facility]) Sodium 129 mEq/L Low 134- 149 17 Profile Potassium 5.0 mEq/L 3.6-5.5 Chloride 87 mEq/L Low 94-112 18 Carbon Dioxide 22 mEq/L 21-32 Glucose 82 mg/dL 70-105 BUN 12 mg/dL 6-26 Creatinine 0.9 mg/dL 0.6-1.4 BUN/Creat Ratio 13.3 CALC 8.0-36.0 Calcium 8.9 mg/dL 8.6-10.2 GFR Non- >60 ml/min/1.73m^ >=60 GFR >60 ml/min/1.73m^ >=60 Laboratory test 08/22/2018 [facility] Digoxin, Serum 0.7 ng/mL 0.5-0.9 19 , 20 finding [address] [place] [address] (607)- - Laboratory test 08/15/2018 [facility] Magnesium 1.9 mg/dL N 1.9-2.7 finding Creatine Kinase(CK) 74 U/L N 10-223 C Reactive Protein 44.07 mg/L High <8.01 TSH (Thyroid Stim Horm) 6.24 mcIU/mL High 0.34-5.60 Digoxin < 0.3 ng/ml Low 0.8-2.0 Alcohol < 10 mg/dL N <10 Comp Metabolic Panel 08/15/2018 [facility] Sodium 128 mmol/L Low 135-145 Potassium 3.5 [...] Egfr Non- 72.1 >60 Egfr 87.3 >60 21 Laboratory test 08/15/2018 [facility] Troponin I 0.01 ng/mL <0.04 22 finding Inr/Protime 08/15/2018 [facility] [place] Inr 1.14 High 0.77-1.02 CBC Auto Diff 08/15/2018 [facility] White Blood Count 4.6 10^3/uL N 3.5-10.8 [...] Blood Cells % 0.3 Laboratory test 08/15/2018 [facility] Lactic Acid 3.2 mmol/L High 0.5-2.0 23 finding Laboratory test 08/15/2018 [facility] Ammonia 129 mcmol/L High 16-53 finding Inr/Protime 06/18/2018 [facility] Inr 0.93 N 0.77-1.02 CBC Auto Diff 06/18/2018 [facility] White Blood Count 5.9 10^3/uL N 3.5-10.8 [...] % Nucleated Red Blood Cells % 0.1 Urinalysis Profile 06/18/2018 [facility] Urine Color Yellow Urine Appearance Cloudy Urine Specific [place] 1.011 N 1.010-1.030 Urine pH 6.0 N [...] Absent Urine Hyaline Casts Present Abnormal Absent Comp Metabolic Panel 06/18/2018 [facility] Sodium 121 mmol/L Low 135-145 Potassium 4.6 [...] Egfr Non- 80.1 >60 Egfr 96.9 >60 24 Laboratory test finding 06/18/2018 [facility] Magnesium 2.2 mg/dL N 1.9-2.7 Valproic Acid (Depakene) 81.0 g/mL N 50-100 Alcohol < 10 mg/dL N <10 Lactic Acid 7.6 mmol/L High 0.5-2.0 25 Urine Culture And 06/18/2018 [facility] Urine Culture SEE RESULT 26 Sensitivities BELOW Laboratory test 06/18/2018 [facility] Levetiracetam 18.8 g/mL 27 finding (Keppra) Laboratory test 06/11/2018 [facility] Osmolality Urine 288 mOsm/kg N 100-1150 finding Sodium Random Urine 19 mmol/L Cortisol 15.69 g/dL 28 Urine Drug SCR ED 06/11/2018 [facility] Barbiturates Urine None Detected None Detect & Pain Clinic Screen Benzodiazepine Urine Screen None Detected None Detect Urine Cannabinoids Screen Presumptive Posi <SEE NOTE> Abnormal None Detect 29 Urine Cocaine Screen None Detected None Detect Urine Opiates Screen None Detected None Detect Urine Phencyclidine Screen None Detected None Detect 30 Amphetamine Ur Screen None Detected None Detect Laboratory test finding 06/11/2018 [facility] Acetaminophen < 15 g/mL 31 Alcohol < 10 mg/dL N <10 Salicylate < 2.50 mg/dL <30 TSH (Thyroid Stim Horm) 10.83 mcIU/mL High 0.34-5.60 Comp Metabolic Panel 06/11/2018 [facility] Potassium 4.7 mmol/L N 3.5-5.0 Chloride 83 [...] Egfr Non- 74.6 >60 Egfr 90.3 >60 32 Sodium 117 mmol/L Low 135-145 33 Anion Gap 9 mmol/L N 2-11 Urinalysis Profile 06/11/2018 [facility] Urine Color Yessica Urine Appearance Clear Urine Specific [place] 1.014 N 1.010-1.030 Urine pH 5.0 N 5-9 Urine Urobilinogen Positive Abnormal Negative Urine Ketones Trace Abnormal Negative Urine Protein Negative Negative Urine Leukocytes Negative Negative Urine Blood Negative Negative Urine Nitrite Negative Negative Urine Bilirubin Negative Negative Urine Glucose Negative Negative CBC Auto Diff 06/11/2018 [facility] White Blood Count 4.0 10^3/uL N 3.5-10.8 [...] Blood Cells % 0.6 Laboratory test 06/11/2018 [facility] Valproic Acid 99.0 g/mL N 50-100 finding (Depakene) Laboratory test 06/11/2018 [facility] Lab Test SEE ATTACHED finding (607)- - Laboratory test 04/17/2018 [facility] Magnesium 1.9 mg/dL N 1.9-2.7 finding Creatine Kinase(CK) 188 U/L N 10-223 Troponin I 0.01 ng/mL <0.04 Alcohol < 10 mg/dL N <10 TSH (Thyroid Stim Horm) 5.08 mcIU/mL N 0.34-5.60 Comp Metabolic Panel 04/17/2018 [facility] Sodium 130 mmol/L Low 135-145 Chloride 98 [...] Egfr Non- 82.1 >60 Egfr 99.3 >60 34 Potassium 5.1 mmol/L High 3.5-5.0 Anion Gap 3 mmol/L N 2-11 Urinalysis Profile 04/17/2018 [facility] Urine Color Yellow Urine Appearance Clear Urine Specific [place] 1.011 N 1.010-1.030 Urine pH 6.0 N [...] Present Abnormal Absent Laboratory test finding 04/17/2018 [facility] Partial Thrombo 29.1 seconds N 26.0-36.3 Time PTT Inr/Protime 04/17/2018 [facility] Inr 0.99 N 0.77-1.02 Laboratory test finding 04/17/2018 [facility] Lactic Acid 1.6 mmol/L N 0.5-2.0 35 CBC Auto Diff 04/17/2018 [facility] White Blood Count 3.8 10^3/uL N 3.5-10.8 [...] Blood Cells % 0.1 Laboratory test 04/17/2018 [facility] Levetiracetam 60.1 g/mL Abnormal 36 finding (Keppra) Urine Drug SCR 04/17/2018 [facility] Amphetamine Ur None Detected None Detect ED & Pain Clinic Screen Barbiturates Urine Screen None Detected None Detect Benzodiazepine Urine Screen None Detected None Detect Urine Cannabinoids Screen Presumptive Posi <SEE NOTE> Abnormal None Detect 37 Urine Cocaine Screen None Detected None Detect Urine Opiates Screen None Detected None Detect Urine Phencyclidine Screen None Detected None Detect 38 Laboratory test finding 01/31/2018 [facility] Digoxin 0.5 ng/ml Low 0.8-2.0 39 Comp Metabolic Panel 01/31/2018 [facility] Sodium 128 mmol/L Low 135-145 Potassium 4.4 [...] Egfr Non- 54.0 >60 Egfr 65.4 >60 40 CBC Auto Diff 01/31/2018 [facility] White Blood Count 4.6 10^3/uL N 3.5-10.8 [...] Cells % 0.2 CBC Auto Diff 01/08/2018 [facility] White Blood Count 5.0 10^3/uL N 3.5-10.8 [...] Blood Cells % 0.1 Urinalysis Profile 01/08/2018 [facility] Urine Color Straw Urine Appearance Clear Urine Specific [place] 1.004 Low 1.010-1.030 Urine pH 6.0 N 5-9 Urine Urobilinogen Negative Negative Urine Ketones Negative Negative Urine Protein Negative Negative Urine Leukocytes Negative Negative Urine Blood Negative Negative Urine Nitrite Negative Negative Urine Bilirubin Negative Negative Urine Glucose Negative Negative Inr/Protime 01/08/2018 [facility] Inr 0.94 N 0.77-1.02 Comp Metabolic Panel 01/08/2018 [facility] Sodium 125 mmol/L Low 135-145 Potassium 4.3 [...] Egfr Non- 79.4 >60 Egfr 96.0 >60 41 Laboratory test finding 01/08/2018 [facility] Acetaminophen < 15 g/mL 42 Alcohol 43 mg/dL High <10 Salicylate < 2.50 mg/dL <30 TSH (Thyroid Stim Horm) 2.78 mcIU/mL N 0.34-5.60 Lipid Profile (Trig/Chol/HDL) 01/08/2018 [facility] Triglycerides 74 mg/dL 43 Cholesterol 184 mg/dL 44 HDL Cholesterol 62.5 mg/dL 45 LDL Cholesterol 107 mg/dL 46 Urine Drug SCR ED 01/08/2018 [facility] Amphetamine Ur Screen None Detected None Detect & Pain Clinic Barbiturates Urine Screen None Detected None Detect Benzodiazepine Urine Screen None Detected None Detect Urine Cannabinoids Screen Presumptive Posi <SEE NOTE> Abnormal None Detect 47 Urine Cocaine Screen None Detected None Detect Urine Opiates Screen None Detected None Detect Urine Phencyclidine Screen None Detected None Detect 48 Laboratory test 08/31/2017 [facility] Brain Natural 299 pg/mL High < 100 finding (607)- - Peptide CBC Electronic 08/31/2017 [facility]) WBC 5.8 x10^3/UL 4.0-10.0 Fma RBC 4.98 x10^6/UL 3.93-6.00 HGB 15.1 g/dL 12.0-17.0 HCT 43 % 35-50 MCV 86.5 fL 80.0-95.0 MCH 30.3 pg 25.6-32.2 MCHC 35.0 g/dL 32.2-36.0 RDW-CV 14.9 % High 11.6-14.4 PLT 240 x10^3/UL 163-400 MPV 9.9 fL 9.4-12.4 [place]# 3.23 x10^3/UL 1.56-6.13 Lymph# 1.58 x10^3/UL 1.18-3.74 [place]# 0.62 x10^3/UL 0.24-0.82 Eos # 0.3 x10^3/UL 0.0-0.5 Baso # 0.03 x10^3/UL 0.01-0.08 [place]% 56.1 % 34.0-70.0 Lymph % 27.4 % 20.0-52.0 [place]% 10.7 % 5.0-12.0 Eos% 5.0 % 0.7-7.0 [...] >60 ml/min/1.73m^ >=60 Laboratory test 08/31/2017 [facility] Magnesium, 1.9 mEq/L 1.2- 2.1 finding Serum Laboratory test 08/31/2017 [facility] Digoxin, Serum 1.2 ng/mL High 0.5-0.9 49, 50 finding [address] [place] [address] (903)- - Urinalysis 08/21/2017 [facility] Urine Color Yellow Profile Urine Appearance Cloudy Urine Specific [place] 1.011 N 1.010-1.030 Urine pH 5.0 N [...] Present Abnormal Absent Laboratory test finding 08/21/2017 [facility] Inr/Protime 0.91 N 0.77-1.02 CBC Auto Diff 08/21/2017 [facility] White Blood Count 6.5 10^3/uL N 3.5-10.8 [...] Cells % 0.2 Comp Metabolic Panel 08/21/2017 [facility] Sodium 127 mmol/L Low 133-145 Chloride 96 [...] Egfr Non- 90.1 >60 Egfr 115.9 >60 51 Potassium 5.1 mmol/L High 3.5-5.0 Anion Gap 5 mmol/L N 2-11 Laboratory test finding 08/21/2017 [facility] Magnesium 2.1 mg/dL N 1.9-2.7 Creatine Kinase(CK) 68 U/L N 10-223 Alcohol < 10 mg/dL N <10 TSH (Thyroid Stim Horm) 6.17 mcIU/mL High 0.34-5.60 Levetiracetam (Keppra) <2.0 g/mL Abnormal 52 Laboratory test 08/16/2017 [facility] Lab Test See Attached finding CBC Auto Diff 08/16/2017 [facility] White Blood 7.5 10^3/uL N 3.5-10.8 Count [...] Cells % 0.1 Comp Metabolic Panel 08/16/2017 [facility] Sodium 126 mmol/L Low 133-145 Potassium 4.6 [...] Egfr Non- 74.9 >60 Egfr 96.3 >60 53 Laboratory test finding 08/16/2017 [facility] Digoxin 2.0 [...] Egfr Non- 75.7 >60 Egfr 97.4 >60 54 Laboratory test 07/31/2017 [facility] Lactic Acid 5.7 mmol/L High 0.5-2.0 55 finding Inr/Protime 07/31/2017 [facility] Inr 0.94 N 0.77-1.02 CBC Auto Diff 07/31/2017 [facility] White Blood Count 5.5 10^3/uL N 3.5-10.8 [...] [facility]) Sodium 133 mEq/L Low 134-149 56 Prof Potassium 4.6 mEq/L 3.6-5.5 Chloride 102 mEq/L 94-112 Carbon Dioxide 26 mEq/L 21-32 Glucose 118 mg/dL High 70-105 57 BUN 12 mg/dL 6-26 Creatinine 0.8 mg/dL [...] 07/04/2017 [facility] Ammonia, Plasma 63 g/dL 27-102 58 finding [address] [place] [address] (488)- - Urine Drug SCR 07/03/2017 [facility] Amphetamine Ur None None ED & Pain Screen Detected Detect Clinic Barbiturates Urine Screen None Detected None Detect Benzodiazepine Urine Screen None Detected None Detect Urine Cannabinoids Screen Presumptive Posi <SEE NOTE> Abnormal None Detect 59 Urine Cocaine Screen None Detected None Detect Urine Opiates Screen Presumptive Posi <SEE NOTE> Abnormal None Detect 60 Urine Phencyclidine Screen None Detected None Detect 61 Laboratory test finding 07/03/2017 [facility] [place] Erythrocyte Sed Rate 12 mm/Hr N 0- 20 CBC Auto Diff 07/03/2017 [facility] [place] White Blood Count 4.0 10^3/uL N 3.5-10.8 [...] Cells % 0.5 Laboratory test finding 07/03/2017 [facility] [place] C Reactive Protein 8.09 mg/L High < 5.00 62 Alcohol < 10 mg/dL N <10 Comp Metabolic Panel 07/03/2017 [facility] [place] Sodium 121 mmol/L Low 133-145 Potassium 4.0 [...] Egfr Non- 91.3 >60 Egfr 117.5 >60 63 Laboratory test 07/03/2017 [facility] [place] Lactic Acid 0.9 mmol/L N 0.5-2.0 64 finding Inr/Protime 07/03/2017 [facility] [place] Inr 1.04 High 0.77-1.02 65 Laboratory test 07/03/2017 [facility] [place] Carbon Monoxide 5.4 % High <4.0 finding Laboratory test 06/07/2017 [facility] [place] Urine Culture And SEE RESULT 66 finding Sensitivities BELOW Urine Drug SCR ED 06/07/2017 [facility] [place] Amphetamine Ur None Detected None Detect & Pain Clinic Screen Barbiturates Urine Screen None Detected None Detect Benzodiazepine Urine Screen None Detected None Detect Urine Cannabinoids Screen Presumptive Posi <SEE NOTE> Abnormal None Detect 67 Urine Cocaine Screen None Detected None Detect Urine Opiates Screen Presumptive Posi <SEE NOTE> Abnormal None Detect 68 Urine Phencyclidine Screen None Detected None Detect 69 Urinalysis Profile 06/07/2017 [facility] [place] Urine Color Yellow Urine Appearance Clear Urine Specific [place] 1.012 N 1.010-1.030 Urine pH 5.0 N 5-9 Urine Urobilinogen Negative Negative Urine Ketones Negative Negative Urine Protein Negative Negative Urine Leukocytes Negative Negative Urine Blood Negative Negative Urine Nitrite Negative Negative Urine Bilirubin Negative Negative Urine Glucose Negative Negative Manual Differential 06/06/2017 [facility] [place] Immature Granulocytes 7 % N 0-9 Neutrophil % 53 % N 38-83 Band % 5 % N 0-8 Lymphocytes % 28 % N 25-47 Monocytes % 9 % N 0-13 Eosinophils % 2 % N 0-6 Basophil % 1 % N 0-2 Myelocytes % 2 % High 0-1 RBC Morphology Normal Normal Polychromasia 1+ Laboratory test finding 06/06/2017 [facility] [place] Acetaminophen < 15 g/mL 70 Alcohol 35 mg/dL High <10 Salicylate < 2.50 mg/dL <30 TSH (Thyroid Stim Horm) 8.16 mcIU/mL High 0.34-5.60 Comp Metabolic Panel 06/06/2017 [facility] [place] Sodium 130 mmol/L Low 133-145 Potassium 4.6 [...] Egfr Non- 55.0 >60 Egfr 70.7 >60 71 Inr/Protime 06/06/2017 [facility] [place] Inr 1.06 N 0.89-1.11 CBC Auto Diff 06/06/2017 [facility] [place] White Blood Count 5.6 10^3/uL N 3.5-10.8 [...] Blood Cells % 0.1 Laboratory test 03/26/2017 [facility] [place] Surgical SEE RESULT 72 finding Interface Order BELOW Complete Blood 01/08/2017 [facility] Edilma(fma) WBC 6.5 x10^3/UL 3.6-9.6 Count RBC 4.65 x10^6/UL 3.90-5.70 HGB 16.0 g/dL 12.1-17.2 HCT 45 % 36-50 MCV 97.0 fL 82.2-97.4 MCH 34.4 pg High 27.6-33.3 MCHC 35.3 g/dL 33.0-35.5 RDW 13.8 % High 11.6-13.7 PLT 206 x10^3/UL 150-400 MPV 7.8 fL 7.4-10.4 Gran # 4.2 x10^3/UL 1.5-7.2 Lymph# 1.8 x10^3/UL 0.7-4.9 [place]# 0.5 x10^3/UL 0.1-0.9 Gran % 63.4 % 42.2-75.2 Lymph % 28.6 % 20.5-51.1 [place]% 8.0 % 1.7-9.3 PT And PTT 01/08/2017 [facility] Inr 1.2 73, 74 [address] [place] [address] (607)- - Prothrombin Time 12.7 seconds High 9.6-11.5 aPTT 33.3 seconds High 25.0-31.3 Comprehensive Metabolic 01/08/2017 [facility](a) Sodium 135 mEq/L 134-149 Prof Potassium 4.7 [...] ml/min/1.73m^ >=60 CBC Electronic (a) 12/21/2016 [facility] WBC 9.4 3.6-9.6 (607)- - RBC 4.27 3.90-5.70 Hemoglobin (Fma/CMC/CTX) 14.6 g/dL 12.1 - 17.2 Hematocrit (Fma/CMC/CTX) 42.1 % 36.1 - 50.3 Platelets 137 10^3/ul Low 150-400 75 Lymph% 14.9 % Low 17.0-48.0 Mixed% 6.1 Neutrophils % 79.0 Mean Corpuscular Vol 99 High 82.2-97.4 Mean Corpuscular Hemoglobin 34.1 High 27.6-33.3 Mean Corpuscular Hemo Concen 34.6 32.0-36.0 RDW 13.9 High 11.6-13.7 Mean Platelet Volume 7.8 5.5-11.0 Comprehensive Metabolic 12/21/2016 [facility] Edilma(fma) Sodium 132 mEq/L Low 134-149 76 Prof Potassium 4.8 mEq/L 3.6-5.5 Chloride 93 [...] 5-34 Total Bilirubin 2.1 mg/dL High 0.2-1.3 77 GFR Non- >60 ml/min/1.73m^ >=60 GFR >60 ml/min/1.73m^ >=60 Total And 12/21/2016 Diego Edilma(fma) Total Bilirubin 2.1 mg/dL High 0.2-1.3 78 Direct Bili Direct Bilirubn 0.9 mg/dL High 0.0-0.6 Indirect Bilirubin 1.20 mg/dL High 0.10-1.00 PT And PTT 12/21/2016 [facility] Inr 1.4 79, 80 [address] [place] [address] (095)- - Prothrombin Time 14.6 seconds High 9.6-11.5 aPTT 40.2 seconds High 25.0-31.3 Comprehensive Metabolic 12/01/2016 [facility] Edilma(fma) Sodium 136 mEq/L 134-149 Prof Potassium [...] ml/min/1.73m^ >=60 Laboratory test finding 12/01/2016 Diego France([facility]) TSH 3.77 mIU/L 0.50-6.00 Free T4 0.84 ng/dL 0.75-1.54 PSA 4.7 ng/mL High 0.0-4.0 81 Complete Blood Count 12/01/2016 Dieog France([facility]) WBC 6.1 x10^3/UL 3.6 -9.6 RBC 4.58 x10^6/UL 3.90-5.70 HGB 15.4 g/dL 12.1-17.2 HCT 45 % 36-50 MCV 98.0 fL High 82.2-97.4 MCH 33.6 pg High 27.6-33.3 MCHC 34.4 g/dL 33.0-35.5 RDW 14.6 % High 11.6-13.7 PLT 193 x10^3/UL 150-400 MPV 6.7 fL Low 7.4-10.4 Gran # 4.2 x10^3/UL 1.5-7.2 Lymph# 1.4 x10^3/UL 0.7-4.9 Sum[place]# 0.5 x10^3/UL 0.1-0.9 Gran % 67.4 % 42.2-75.2 Lymph % 22.9 % 20.5-51.1 [place]% 9.7 % High 1.7-9.3 Laboratory test 11/06/2016 [facility] Levetiracetam 29.5 ug/mL 10.0-40.0 82 finding [address] [facility] ([facility] [place] [address] (607)- - Digoxin, Serum 1.5 ng/mL High 0.5-0.9 83 Comprehensive Metabolic 11/06/2016 Diego France(fma) Sodium 130 mEq/L Low 134-149 84 Prof Potassium 5.5 mEq/L 3.6-5.5 Chloride 94 [...] >60 ml/min/1.73m^ >=60 Lipid Profile 11/06/2016 Diego France(fma) Cholesterol 248 mg/dL High 120-200 Triglycerides 73 mg/dL 30-200 HDL Cholesterol 128 mg/dL High 30-70 LDL (Calculated) 105 CALC 0-129 VLDL Cholesterol 15 mg/dL 0-50 HDL Risk Factor 1.9 CALC 0.0-4.4 Complete Blood Count 11/06/2016 Diego France(fma) WBC 7.4 x10^3/UL 3.6 -9.6 RBC 5.08 x10^6/UL 3.90-5.70 HGB 16.9 g/dL 12.1-17.2 HCT 49 % 36-50 MCV 96.0 fL 82.2-97.4 MCH 33.3 pg 27.6-33.3 MCHC 34.7 g/dL 33.0-35.5 RDW 14.3 % High 11.6-13.7 PLT 221 x10^3/UL 150-400 MPV 7.3 fL Low 7.4-10.4 Gran # 4.8 x10^3/UL 1.5-7.2 Lymph# 2.1 x10^3/UL 0.7-4.9 [place]# 0.5 x10^3/UL 0.1-0.9 Gran % 62.6 % 42.2-75.2 Lymph % 29.7 % 20.5-51.1 [place]% 7.7 % 1.7-9.3 Laboratory test 11/06/2016 Diego France(a) Free T4 1.32 ng/dL 0.75- 1.54 finding TSH 8.94 mIU/L High 0.50-6.00 85 PSA 5.8 ng/mL High 0.0-4.0 86 Laboratory test 10/15/2016 [facility] Lactic Acid 2.0 mmol/L N 0.5-2.0 87 finding Laboratory test 10/15/2016 [facility] Levetiracetam (Keppra) 12.8 g/mL N 88 finding Digitoxin Level 10/15/2016 [facility] Digitoxin None Detected N 10 - 30 ng/mL Digitoxin Reporting Limit 5.0 ng/mL N 89 Laboratory test 07/05/2016 [facility] Digoxin, Serum 1.4 ng/mL 0.9-2.0 90 finding [address] [place] [address] (607)- - Laboratory test 06/26/2016 [facility] Digitoxin <3.0 Low 10 - 25 91 finding [address] [facility] ng/[place] [address] (607)- - Laboratory test 06/26/2016 [facility] Hemoglobin A1c 5.1 % % 4.1- 5.7 finding (607)- - (Fma) Laboratory test 06/19/2016 [facility] Point of Care 112 mg/dL High 74-106 92 finding Glucose Comprehensive 06/14/2016 [facility] Flora([facility]) Sodium 132 mEq/L Low 134- 149 93 Metabolic Prof Potassium 5.3 mEq/L 3.6-5.5 Chloride 94 mEq/L 94-112 Carbon Dioxide 28 mEq/L 21-32 Glucose 117 mg/dL High 70-105 94 BUN 11 mg/dL 6-26 Creatinine 0.8 mg/dL [...] >60 ml/min/1.73m^ >=60 Lipid Profile 06/14/2016 Diego Edilma([facility]) Cholesterol 203 mg/dL High 120-200 Triglycerides 42 mg/dL 30-200 HDL Cholesterol 92 mg/dL High 30-70 LDL (Calculated) 103 CALC 0-129 VLDL Cholesterol 8 mg/dL 0-50 HDL Risk Factor 2.2 CALC 0.0-4.4 Laboratory test finding 06/14/2016 Diego France([facility]) CK 113 U/L 38- 174 Complete Blood Count 06/14/2016 Diego Edilma([facility]) WBC 6.6 x10^3/UL 3.6 -9.6 RBC 4.60 x10^6/UL 3.90-5.70 HGB 14.0 g/dL 12.1-17.2 HCT 41 % 36-50 MCV 89.0 fL 82.2-97.4 MCH 30.5 pg 27.6-33.3 MCHC 34.2 g/dL 33.0-35.5 RDW 17.5 % High 11.6-13.7 PLT 190 x10^3/UL 150-400 MPV 6.7 fL Low 7.4-10.4 Gran # 4.4 x10^3/UL 1.5-7.2 Lymph# 1.7 x10^3/UL 0.7-4.9 [place]# 0.5 x10^3/UL 0.1-0.9 Gran % 65.4 % 42.2-75.2 Lymph % 26.8 % 20.5-51.1 [place]% 7.8 % 1.7-9.3 Laboratory test finding 06/14/2016 [facility] Edilma(a) TSH 1.93 mIU/L 0.50-6.00 95 Free T4 0.80 ng/dL 0.75-1.54 Laboratory test 03/21/2016 [facility] Inr (a) 1.7 Low 2.0-3.0 finding (607)- - Comprehensive 03/21/2016 Diego Edilma(a) Sodium 127 mEq/L Low 134- 149 96 Metabolic Prof Potassium 5.6 mEq/L High 3.6-5.5 97 Chloride 94 mEq/L 94-112 Carbon Dioxide 25 mEq/L 21-32 Glucose 88 mg/dL 70-105 BUN 11 mg/dL 6-26 Creatinine 0.8 mg/dL 0.6-1.4 BUN/Creat Ratio 13.8 CALC 8.0-36.0 Calcium 8.7 mg/dL 8.6-10.2 Total Protein 6.9 g/dL 6.4-8.3 Albumin 3.9 g/dL 3.8-5.5 Globulin 3.0 g/dL 2.0-4.8 A/G Ratio 1.3 CALC 0.6-2.3 Alk. Phosphatase 97 U/L High 22-95 98 Alt (SGPT) 15 U/L 7-35 Ast (Sgot) 20 U/L 5-34 Total Bilirubin 0.4 mg/dL 0.2-1.3 GFR Non- >60 ml/min/1.73m^ >=60 GFR >60 ml/min/1.73m^ >=60 Lipid Profile 03/21/2016 Diego Edilma(fma) Cholesterol 181 mg/dL 120- 200 Triglycerides 54 mg/dL 30-200 HDL Cholesterol 52 mg/dL 30-70 LDL (Calculated) 118 CALC 0-129 VLDL Cholesterol 11 mg/dL 0-50 HDL Risk Factor 3.5 CALC 0.0-4.4 Laboratory test 03/21/2016 Diego France([facility]) Magnesium, Serum 2.0 mEq/L 1.2-2.1 finding TSH 2.47 mIU/L 0.50-6.00 Complete Blood Count 03/21/2016 Diego France([facility]) WBC 7.8 x10^3/UL 3.6 -9.6 RBC 4.57 x10^6/UL 3.90-5.70 HGB 14.2 g/dL 12.1-17.2 HCT 41 % 36-50 MCV 90.0 fL 82.2-97.4 MCH 31.1 pg 27.6-33.3 MCHC 34.5 g/dL 33.0-35.5 RDW 14.7 % High 11.6-13.7 PLT 307 x10^3/UL 150-400 MPV 7.1 fL Low 7.4-10.4 Gran # 5.1 x10^3/UL 1.5-7.2 Lymph# 2.0 x10^3/UL 0.7-4.9 [place]# 0.7 x10^3/UL 0.1-0.9 Gran % 64.0 % 42.2-75.2 Lymph % 26.1 % 20.5-51.1 [place]% 9.9 % High 1.7-9.3 Laboratory test 03/07/2016 [facility] Inr (Fma) 1.5 Low 2.0-3.0 finding (607)- - Laboratory test 03/01/2016 [facility] Inr (Fma) 3.2 High 2.0-3.0 finding (607)- - Laboratory test 02/24/2016 [facility] Potassium Redraw 4.8 mmol/L N 3.5-5.0 finding Ast Redraw 23 U/L N 13-39 Laboratory test 02/16/2016 [facility] Inr (Fma) 2.5 2.0-3.0 finding (607)- - Laboratory test 02/10/2016 [facility] Inr (Fma) 1.3 Low 2.0-3.0 finding (607)- - Laboratory test 02/01/2016 [facility] Troponin I 0.03 ng/mL High <0.03 99 finding Lactic Acid 2.2 mmol/L High 0.5-2.0 100 Magnesium 2.0 mg/dL N 1.9-2.7 Digoxin 0.9 ng/ml N 0.8-2.0 Valproic Acid (Depakene) 61.0 g/mL N 50-100 TSH (Thyroid Stim Horm) 4.34 mcIU/mL N 0.34-5.60 Levetiracetam (Keppra) 6.0 g/mL Abnormal 101 Comp Metabolic Panel 02/01/2016 [facility] Sodium 129 mmol/L Low 133-145 Potassium 4.0 [...] 75.4 N >60 Egfr 96.9 N >60 102 Laboratory test 02/01/2016 [facility] Partial Thrombo 37.7 seconds High 26.0- 36.3 finding Time PTT Inr/Protime 02/01/2016 [facility] Inr 1.60 High 0.89-1.11 CBC Auto Diff 02/01/2016 [facility] White Blood Count 5.5 10^3/uL N 3.5-10.8 [...] [facility] Troponin I 0.02 ng/mL N <0.03 103 finding Laboratory test 01/31/2016 [facility] Inr (Fma) 1.7 Low 2.0-3.0 finding (607)- - Laboratory test 01/24/2016 [facility] Inr (Fma) 1.9 Low 2.0-3.0 finding (607)- - Laboratory test 01/19/2016 [facility] Inr (Fma) 5.7 High 2.0-3.0 finding (607)- - Laboratory test 03/03/2015 [facility] HCV Antibody <0.1 0.0-0.9 104, 105 finding [address] [facility] s/[place] [address] (607)- - Panel [id number] 03/03/2015 [facility] HIV 1/O/2 <1.00 <1.00 106 Nys PT Only [address] [facility] [place] [address] Value (607)- - HIV 1/O/2 Abs, Qual Non Reactive Non Reactive Lipid Profile 01/21/2015 Diego Edilma(fma) Cholesterol 183 mg/dL 120- 200 Triglycerides 56 mg/dL 30-200 HDL Cholesterol 54 mg/dL 30-70 LDL (Calculated) 118 CALC 0-129 VLDL Cholesterol 11 mg/dL 0-50 HDL Risk Factor 3.4 CALC 0.0-4.4 Comprehensive 01/21/2015 [facility](fma) Sodium 129 mEq/L Low 134- 149 107 Metabolic Prof Potassium 4.6 mEq/L 3.6-5.5 Chloride 95 [...] 5-34 Total Bilirubin 0.5 mg/dL 0.2-1.3 1 Standard intensity warfarin therapeutic range: 2.0-3.0 High intensity warfarin therapeutic range: 2.5-3.5 2 Please note: The following may produce a false positive D Dimer test: - Rheumatoid factor greater than 60 IU/ml - Plasma hemoglobin greater than 0.05 gm/dl - Bilirubin greater than 50 mg/dl - Lipids greater than 1000 mg/dl - FDP greater than 20 ug/ml 3 Reference ranges based on room air. 4 [facility] Severe Sepsis and Septic Shock Management Bundle Measure requires all lactic acids initially measuring >2.0 mmol/L be repeated. 5 SEE RESULT BELOW Name: GILDA CORTEZ : [address]: William Bangura MD Acct: [id number] Unit: [id number] AGE: 63 Location: [place] [address] Re11/24/18 SEX: M Status: ADM IN SPEC: [id number] SIENA: 11/24/[address]: Aung Alexander MD REQ: [id number] RECD: 11/24/18 STATUS: RES OTHR DR: Autumn Urbina MD _ SOURCE: SPUTUM,EXP SPDESC: ORDERED: Sputum Cult/GS Procedure Result Reported Site Sputum Smear Final 11/24/18- 1005 ML 2+ Neutrophils 2+ Nucleated Cells 1+ Epithelial Cells Mixed Morphotypes, resembling Normal Edilma Sputum Culture Preliminary 11/26/18- 1325 ML Organism 1 ENTEROBACTER SPECIES Quantity 1+ * ML - Main Lab . END OF REPORT DEPARTMENT OF PATHOLOGY, [address] [place] [address] Alirio Hawkins M.D. Director [facility] # [id number] 6 Because ethnic data is not always [...] 5 Kidney failure <15 (or dialysis) 7 Troponin-I testing on Plasma Separator Tubes (PST) has a known false positive rate of 0.20-0.40%. All positive troponins reflex immediately to secondary confirmatory testing. Using the [employer] DxI 800 Access Immunoassay systems, the 99th percentile upper reference limit was demonstrated to be < 0.03 ng/mL. 8 SEE RESULT BELOW Name: GILDA CORTEZ : [address]: William Bangura MD Acct: [id number] Unit: [id number] AGE: 63 Location: [place] [address] Re11/24/18 Dis: 11/27/18 SEX: M Status: DIS IN SPEC: [id number] SIENA: 11/24/[address]: Aung Alexander MD REQ: [id number] RECD: 11/24/18 STATUS: MICHAEL GANT DR: Autumn Urbina MD _ SOURCE: BLOOD,VENO SPDESC: ORDERED: Blood Cult Procedure Result Reported Site Aerobic Culture Bottle Final 11/29/18- 57 ML No Growth Day 5 Anaerobic Culture Bottle Final 11/29/18- 854 ML No Growth Day 5 * ML - Main Lab . END OF REPORT DEPARTMENT OF PATHOLOGY, [address] [place] [address] Alirio Hawkins M.D. Director [facility] # [id number] 9 1 serum pour off from red top tube 10 Concentrations above 2.0 ng/mL are generally considered toxic. Some overlap of toxic and non-toxic values have been reported. Detection Limit=0.4 ng/mL Therapeutic range is derived from 2013 ACCF/AHA Guidelines for the Management of Heart Failure. 11 Concentrations above 2.0 ng/mL are generally considered toxic. Some overlap of toxic and non-toxic values have been reported. Detection Limit=0.4 ng/mL Therapeutic range is derived from 2013 ACCF/AHA Guidelines for the Management of Heart Failure. 12 consistent w/ previous results 13 consistent w/ previous results 14 NON-FASTING 15 Because ethnic data is not always [...] 5 Kidney failure <15 (or dialysis) 16 Troponin-I testing on Plasma Separator Tubes (PST) has a known false positive rate of 0.20-0.40%. All positive troponins reflex immediate secondary confirmatory testing. 17 RESULTS VERIFIED BY REPEAT ANALYSIS 18 RESULTS VERIFIED BY REPEAT ANALYSIS 19 1serum pour off from red t op tube 20 Concentrations above 2.0 ng/mL are generally considered toxic. Some overlap of toxic and non-toxic values have been reported. Detection Limit=0.4 ng/mL Therapeutic range is derived from 2013 ACCF/AHA Guidelines for the Management of Heart Failure. 21 Because ethnic data is not always [...] 5 Kidney failure <15 (or dialysis) 22 Troponin-I testing on Plasma Separator Tubes (PST) has a known false positive rate of 0.20-0.40%. All positive troponins reflex immediate secondary confirmatory testing. 23 Critical Result LACT:3.2 Called to [id number] at: 15:00:04 by:[id number] Read back by:[id number] [facility] Severe Sepsis and Septic Shock Management Bundle Measure requires all lactic acids initially measuring >2.0 mmol/L be repeated. 24 Because ethnic data is not always readily [...] 15-29 5 Kidney failure <15 (or dialysis) 25 Critical Result LACT:7.6 Called to [id number] at: 14:55:47 by:[id number] Read back by:[id number] [facility] Severe Sepsis and Septic Shock Management Bundle Measure requires all lactic acids initially measuring >2.0 mmol/L be repeated. 26 SEE RESULT BELOW Name: GILDA CORTEZ : [address]: Tony Bassett MD Acct: [id number] Unit: [id number] AGE: 63 Location: ED Re06/18/18 SEX: M Status: REG ER SPEC: [id number] SIENA: 06/18/[address]: Tony Bassett MD REQ: [id number] RECD: 06/18/18 STATUS: MICHAEL GANT DR: Autumn Urbina MD _ SOURCE: URINE SPDESC: ORDERED: Urine Culture Procedure Result Reported Site Urine Culture Final 06/19/18- 1606 ML No growth of clinically significant organisms * ML - Main Lab . END OF REPORT DEPARTMENT OF PATHOLOGY, [address] [place] [address] Alirio Hawkins M.D. Director [facility] # [id number] 27 REFERENCE VALUE 12.0 - 46.0 ADDITIONAL INFORMATION This test was developed and its performance characteristics determined by [facility] in a manner consistent with CLIA requirements. This test has not been cleared or approved by the U.S. Food and Drug Administration. Test Performed by: [facility] [address] [place] [address] 28 AM 8.7-22.4 PM <10 29 Presumptive Positive Presumptive positive results are unconfirmed. 30 The urine specimen was tested at the listed cutoffs: Drug class test level (ng/mL) Amphetamines 500 Barbiturates 200 Benzodiazepine metabolites 200 Cocaine metabolites 150 Cannabinoids 50 Opiates 300 Pcp 25 Specimen was received without chain of custody. Results should be used for medical purposes only. 31 Therapeutic concentration: <50 ug/mL Toxic concentration: >120 ug/mL 32 Because ethnic data is not always [...] 5 Kidney failure <15 (or dialysis) 33 Critical Result NA:117 Called to [id number] at: 11:22:44 by:[id number] Read back by:[id number] 34 Because ethnic data is not always [...] 5 Kidney failure <15 (or dialysis) 35 [facility] Severe Sepsis and Septic Shock Management Bundle Measure requires all lactic acids initially measuring >2.0 mmol/L be repeated. 36 REFERENCE VALUE 12.0 - 46.0 ADDITIONAL INFORMATION This test was developed and its performance characteristics determined by [facility] in a manner consistent with CLIA requirements. This test has not been cleared or approved by the U.S. Food and Drug Administration. Test Performed by: [facility] [address] [facility], [place] [address] 37 Presumptive Positive Presumptive positive results are unconfirmed. 38 The urine specimen was tested at the listed cutoffs: Drug class test level (ng/mL) Amphetamines 500 Barbiturates 200 Benzodiazepine metabolites 200 Cocaine metabolites 150 Cannabinoids 50 Opiates 300 Pcp 25 Specimen was received without chain of custody. Results should be used for medical purposes only. 39 Copy Result to: AUTUMN URBINA ([id number]) 40 Because ethnic data is not always readily [...] 15-29 5 Kidney failure <15 (or dialysis) 41 Because ethnic data is not always readily [...] 15-29 5 Kidney failure <15 (or dialysis) 42 Therapeutic concentration: <50 ug/mL Toxic concentration: >120 ug/mL 43 Desirable: <150 Borderline High: 150-199 High: 200-499 Very High: >500 44 Desirable: <200 Borderline High: 200-239 High: >239 45 Low: <40 Desirable: 40-60 High: >60 46 Desirable: <100 Near Optimal: 100-129 Borderline High: 130-159 High: 160-189 Very High: >189 47 Presumptive Positive Presumptive positive results are unconfirmed. 48 The urine specimen was tested at the listed cutoffs: Drug class test level (ng/mL) Amphetamines 500 Barbiturates 200 Benzodiazepine metabolites 200 Cocaine metabolites 150 Cannabinoids 50 Opiates 300 Pcp 25 Specimen was received without chain of custody. Results should be used for medical purposes only. 49 1 sst 50 Concentrations above 2.0 ng/mL are generally considered toxic. Some overlap of toxic and non-toxic values have been reported. Detection Limit=0.4 ng/mL Therapeutic range is derived from 2013 ACCF/AHA Guidelines for the Management of Heart Failure. 51 Because ethnic data is not always readily [...] 15-29 5 Kidney failure <15 (or dialysis) 52 REFERENCE VALUE 12.0 - 46.0 ADDITIONAL INFORMATION This test was developed and its performance characteristics determined by [facility] in a manner consistent with CLIA requirements. This test has not been cleared or approved by the U.S. Food and Drug Administration. Test Performed by: [facility] [address] [facility], [place] [address] 53 Because ethnic data is not always readily [...] 15-29 5 Kidney failure <15 (or dialysis) 54 Because ethnic data is not always readily [...] 15-29 5 Kidney failure <15 (or dialysis) 55 Critical Result LACT:5.7 Called to [id number] at: 13:57:34 by:[id number] Read back by:[id number] [facility] Severe Sepsis and Septic Shock Management Bundle Measure requires all lactic acids initially measuring >2.0 mmol/L be repeated. [facility] Severe Sepsis and Septic Shock Management Bundle Measure requires all lactic acids initially measuring >2.0 mmol/L be repeated. 56 RESULTS VERIFIED BY REPEAT ANALYSIS 57 NON-FASTING 58 FROZEN EDTA PLASMA FROM [facility] 59 Presumptive Positive Presumptive positive results are unconfirmed. 60 Presumptive Positive Presumptive positive results are unconfirmed. 61 The urine specimen was tested at the listed cutoffs: Drug class test level (ng/mL) Amphetamines 500 Barbiturates 200 Benzodiazepine metabolites 200 Cocaine metabolites 150 Cannabinoids 50 Opiates 300 Pcp 25 Specimen was received without chain of custody. Results should be used for medical purposes only. 62 Acute inflammation: >10.00 63 Because ethnic data is not always [...] 5 Kidney failure <15 (or dialysis) 64 [facility] Severe Sepsis and Septic Shock Management Bundle Measure requires all lactic acids initially measuring >2.0 mmol/L be repeated. 65 Please note the change in INR reference range effective 17. 66 SEE RESULT BELOW Name: CORTEZGILDA Araceli : [address]: Aung Alexander MD Acct: [id number] Unit: [id number] AGE: 62 Location: ED Re06/06/17 SEX: M Status: DEP ER SPEC: [id number] SIENA: 06/07/17-1145 [facility] [place] DR: Aung Alexander MD REQ: [id number] RECD: 06/07/17-125 STATUS: COMP ALFREDA DR: Kellee Bangura MD _ SOURCE: URINE SPDESC: ORDERED: Urine Culture QUERIES: Urine Source: Random Procedure Result Reported Site Urine Culture Final 06/08/17- 1337 ML No Growth (<1,000 CFU/mL) * ML - MAIN LAB ([facility]) . END OF REPORT * ML=Testing performed at Main Lab DEPARTMENT OF PATHOLOGY, [address] [place] [address] Alirio Hawkins M.D. Director [facility] # [id number] 67 Presumptive Positive Presumptive positive results are unconfirmed. 68 Presumptive Positive Presumptive positive results are unconfirmed. 69 The urine specimen was tested at the listed cutoffs: Drug class test level (ng/mL) Amphetamines 500 Barbiturates 200 Benzodiazepine metabolites 200 Cocaine metabolites 150 Cannabinoids 50 Opiates 300 Pcp 25 Specimen was received without chain of custody. Results should be used for medical purposes only. 70 Therapeutic concentration: <50 ug/mL Toxic concentration: >120 ug/mL 71 Because ethnic data is not always readily [...] 15-29 5 Kidney failure <15 (or dialysis) 72 SEE RESULT BELOW Name: CORTEZGILDA : [address]: Henry Nunez MD Acct: [id number] Unit: [id number] AGE: 62 Location: [facility] Re03/26/17 SEX: M Status: DEP REF SPEC: [id number] SIENA: 03/26/17- SUBM DR: Henry Nunez MD REQ: [id number] RECD: 03/26/17 STATUS: BERENICE GANT DR: Kellee [...] performed at Main Lab DEPARTMENT OF PATHOLOGY, [address] [place] [address] Alirio Hawkins M.D. Director [facility] # [id number] 73 2 light blue tops FILLED T O THE LINE 74 INTERNATIONAL NORMALIZED RATIO(INR) INDICATIONS INR RANGE PATIENTS [...] WITH AN UNACCEPTABLY HIGH RISK OF BLEEDING. 75 result rechecked 76 RESULTS VERIFIED BY REPEAT ANALYSIS 77 RESULTS VERIFIED BY REPEAT ANALYSIS 78 RESULTS VERIFIED BY REPEAT ANALYSIS 79 2 light blue filled to the line 80 INTERNATIONAL NORMALIZED RATIO(INR) INDICATIONS INR RANGE PATIENTS [...] WITH AN UNACCEPTABLY HIGH RISK OF BLEEDING. 81 RESULTS VERIFIED BY REPEAT ANALYSIS 82 1 serum pour off from red top 83 Concentrations above 2.0 ng/mL are generally considered toxic. Some overlap of toxic and non-toxic values have been reported. Detection Limit=0.4 ng/mL Therapeutic range is derived from 2013 ACCF/AHA Guidelines for the Management of Heart Failure. 84 RESULTS VERIFIED BY REPEAT ANALYSIS 85 RESULTS VERIFIED BY REPEAT ANALYSIS 86 RESULTS VERIFIED BY REPEAT ANALYSIS 87 [facility] Severe Sepsis and Septic Shock Management Bundle Measure requires all lactic acids initially measuring >2.0 mmol/L be repeated. 88 REFERENCE VALUE 12.0 - 46.0 ADDITIONAL INFORMATION This test was developed and its performance characteristics determined by [facility] in a manner consistent with CLIA requirements. This test has not been cleared or approved by the U.S. Food and Drug Administration. Test Performed by: [facility] - [address] [address] Test Performed by: [employer] [address] [place] [address] [address] [place] [address] 90 Concentrations above 2.0 ng/mL are generally considered toxic. Some overlap of toxic and non-toxic values have been reported. Detection Limit=0.4 ng/mL 91 1pour off serum from red t op 92 Housekeeper Head: [id number] ROMERO 93 RESULTS VERIFIED BY REPEAT ANALYSIS 94 RESULTS VERIFIED BY REPEAT ANALYSIS 95 FASTING 96 consistent w/ previous results 97 RESULTS VERIFIED BY REPEAT ANALYSIS interpret with caution remberto up in syringe 98 RESULTS VERIFIED BY REPEAT ANALYSIS 99 Reference Range and Interpretation: TnI (ng/mL) Interpretation Less Than 0.03 ng/mL Not supportive of diagnosis of DE 0.03 - 0.50 ng/mL Indeterminate: suggest serial studies if clinically indicated. Greater than 0.5 ng/mL Consistent with diagnosis of DE 100 Critical Result LACT:2.2 Called to [id number] at: 02:34:27 by:[id number] Read back by:[id number] [facility] Severe Sepsis and Septic Shock Management Bundle Measure requires all lactic acids initially measuring >2.0 mmol/L be repeated. 101 REFERENCE VALUE 12.0 - 46.0 Test Performed by: [facility] - [address] [address] Furniture Finisher Helper: Ivan Frost II, M.D., Ph.D. 102 Because ethnic data is not always readily [...] 15-29 5 Kidney failure <15 (or dialysis) 103 Reference Range and Interpretation: TnI (ng/mL) Interpretation Less Than 0.03 ng/mL Not supportive of diagnosis of DE 0.03 - 0.50 ng/mL Indeterminate: suggest serial studies if clinically indicated. Greater than 0.5 ng/mL Consistent with diagnosis of DE 104 2SST 105 Negative: < 0.8 Indeterminate: 0.8 - 0.9 Positive: > 0.9 In order to reduce the incidence of a false positive result, the CDC recommends that all s/co ratios between 1.0 and 10.9 be confirmed by a more specific supplemental or PCR testing. [facility] offers HCV Ab w/Reflex to Verification test #[id number]. 106 Index Value: Specimen reactivity relative to the negative cutoff. 107 RESULTS VERIFIED BY REPEAT ANALYSIS Procedures Date Code Description Status 03/26/2017 [id number] Colonoscopy Completed 03/19/2017 [id number] Colonoscopy Completed 04/18/2016 59257 Pulse Oximetry Completed 04/18/2016 47706 Electrocardiogram Complete Completed 03/07/2016 91195 Finger Or Heel Stick Completed 03/01/2016 39222 Finger Or Heel Stick Completed 02/16/2016 16366 Finger Or Heel Stick Completed 02/10/2016 30451 Finger Or Heel Stick Completed 01/31/2016 99117 Finger Or Heel Stick Completed 01/24/2016 66385 Finger Or Heel Stick Completed 01/19/2016 76296 Finger Or Heel Stick Completed Encounters Type Date Location Provider Dx Diagnosis Office Visit 11/13/2018 Main Office Autumn Schafer I48.2 Chronic atrial 12:00p MD Debbie fibrillation I73.9 Peripheral vascular disease, unspecified S01.01xD Laceration without foreign body of scalp, subs encntr W01.198A Fall same lev from slip/trip w strike agnst oth object, init Office Visit 10/23/2018 3:50p Main Office Autumn Schafer I48.2 Chronic atrial MD Debbie fibrillation M25.512 Pain in left [...] Other seizures I25.10 Athscl heart disease of [place] coronary artery w/o [facility] pctrs Office Visit 06/21/2018 Main Office Autumn Schafer E87.1 Hypo-osmolality and 3:00p MD Debbie hyponatremia F41.1 Generalized anxiety disorder Office Visit 05/17/2018 4:40p Main Office Autumn Schafer I73.9 Peripheral MD Debbie vascular disease, unspecified I25.10 Athscl heart disease of [place] coronary artery w/o ang pctrs Office Visit 04/26/2018 4:40p Main Office Autumn Payton1.01xD Lacmyranda Urbina MD without foreign body of scalp, subs encntr Z48.02 Encounter for removal of sutures Office Visit 04/20/2018 9:20a Main Office Autumn Payton1.01xD Laceration MD Debbie without foreign body of [...] Office Visit 06/28/2017 11:00a Main Office Kellee [place], F31.9 Bipolar disorder, M.D. unspecified I73.9 Peripheral [...] [place] Office Karena Romeo I73.9 Peripheral Devaughn, DAY CARE ATTENDANT vascular disease, 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 hypertension I48.0 Paroxysmal atrial fibrillation F10.20 Alcohol dependence, uncomplicated F31.9 Bipolar disorder, unspecified J44.9 Chronic obstructive pulmonary disease, unspecified I25.10 Athscl heart disease of [place] coronary artery w/o ang pctrs G40.309 Gen idiopathic epilepsy, not intractable, w/o stat epi R23.3 Spontaneous ecchymoses E80.7 Disorder of bilirubin metabolism, unspecified Office Visit 12/01/2016 4:00p [place] Office Kellee Bangura, I10 Essential (primary) M.D. 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 pulmonary disease, unspecified I10 Essential (primary) hypertension I25.10 Athscl heart disease of [place] coronary artery w/o ang pctrs F31.9 Bipolar disorder, unspecified G40.309 Gen idiopathic epilepsy, not intractable, w/o stat epi Z12.11 Encounter for screening for malignant neoplasm of colon Office Visit 05/24/2016 2:45p Main Office Eun Mcwilliams, R49.0 Dysphonia Afnp-C Office Visit 04/18/2016 2:20p Main Office Kellee Bangura M.D. R07.89 Other chest pain I25.10 Athscl heart disease of [place] coronary artery w/o ang pctrs J44.9 Chronic obstructive pulmonary disease, unspecified F31.9 Bipolar disorder, unspecified Office Visit 03/07/2016 3:40p Main Office Kellee Bangura, J44.9 Chronic obstructive M.D. pulmonary disease, unspecified F31.9 Bipolar disorder, unspecified I25.10 Athscl heart disease of [place] coronary artery w/o ang pctrs I48.0 Paroxysmal atrial fibrillation G40.309 Gen idiopathic epilepsy, not intractable, w/o stat epi F10.20 Alcohol dependence, uncomplicated Z12.11 Encounter for screening for malignant neoplasm of colon E87.1 Hypo-osmolality and hyponatremia Z95.2 Presence of prosthetic heart valve F17.210 Nicotine dependence, cigarettes, uncomplicated Z71.6 Tobacco abuse counseling Z79.01 jail (current) use of anticoagulants Office Visit 01/19/2016 1:40p Main Office Autumn Keating 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 J44.9 Chronic obstructive pulmonary disease, unspecified I25.10 Athscl heart disease of [place] coronary artery w/o ang pctrs F17.210 Nicotine [...] Not Class Elsewhere Plan of Treatment Future Appointment(s):01/03/2019 1:00 pm - Autumn Urbina MD at Main [id number]/04/2018 - Autumn Urbina MDI48.2 Chronic atrial fibrillationFollow up:1 moI73.9 Peripheral vascular disease, typxedapbrmV81.309 Generalized idiopathic epilepsy and epileptic syndromes, not intractable, without status lgfcfidfqwiY73.210 Nicotine dependence, cigarettes, [id number] Essential (primary) ffduwmyqiteiB98.9 Chronic obstructive pulmonary disease, unspecifiedAllComments:Medication Management Patient Understands medications he's taking? Yes No Are there Barriersto Adherence? Yes No Has the patient been asked about herbal supplements and therapies, and OTC meds? Yes No
[2018-12-18 15:56] LABS: ALT 12 U/L (7-52); AST 16 U/L (13-39); Albumin 3.4 g/dL (3.2-5.2); Albumin/Globulin Ratio 1.1 (1-3); Alkaline Phosphatase 92 U/L (34-104); Anion Gap 8 mmol/L (2-11); BUN/Creatinine Ratio 7.2 (8-20); Blood Urea Nitrogen 7 mg/dL (6-24); CO2 Carbon Dioxide 27 mmol/L (22-32); Calcium 8.8 mg/dL (8.6-10.3); Chloride 94 mmol/L (101-111); EGFR African American 94.6 (>60); EGFR Non-African American 78.2 (>60); Globulin 3.1 g/dL (2-4); Glucose 96 mg/dL (70-100); Sodium 129 mmol/L (135-145); Total Protein 6.5 g/dL (6.4-8.9)
[2018-12-18 16:14] LABS: Acetaminophen < 15 mcg/mL; Alcohol 67 mg/dL (<10); Salicylate < 2.50 mg/dL (<30)
[2018-12-18 16:25] LABS: TSH (Thyroid Stimulating Horm) 4.04 mcIU/mL (0.34-5.60)
[2018-12-18 17:33] LABS: Urine Appearance Cloudy; Urine Bilirubin Negative (Negative); Urine Blood Negative (Negative); Urine Color Yellow; Urine Glucose Negative (Negative); Urine Ketones Negative (Negative); Urine Nitrite Negative (Negative); Urine Protein Negative (Negative); Urine Specific Gravity 1.006 (1.010-1.030); Urine Urobilinogen Negative (Negative)
[2018-12-18] MEDS ORDERED: cefTRIAXone(*) 1 GM in NS 0.9% 50 ML* 50 ML IVPB ONE (17:34)
[2018-12-18] MEDS ORDERED: Levofloxacin 750 MG IVPREMIX(* 750 MG/150 ML BAG IVPB ONE (17:40)
[2018-12-18 17:51] LABS: Digoxin 0.6 ng/ml (0.8-2.0)
[2018-12-18 17:51] LABS: Urine Benzodiazepine Screen None Detected (None Detect); Urine Opiates Screen None Detected (None Detect)
[2018-12-18] MEDS ORDERED: Furosemide IV* 10 MG/ML 10 ML VIAL (100 MG) IV ONE (18:34)
[2018-12-18] MEDS ORDERED: Acetaminophen TAB* 325 MG PO PRN (18:35)
[2018-12-18 19:07] LABS: BNP 248 pg/mL (<=100)
[2018-12-18] MEDS: LORazepam TAB(*) 1 MG PO SCH (20:35)
[2018-12-18] MEDS: Cilostazol TAB* 100 MG PO SCH (20:36)
[2018-12-18] MEDS: levETIRAcetam TAB* 500 MG PO SCH (20:37)
[2018-12-18] MEDS: Heparin VIAL(*) 5000 UNITS/ML VIAL (FIVE THOUSAND) SUBCUT SCH (20:38)
[2018-12-18] MEDS: guaiFENesin ER TAB 600 MG PO SCH (20:38)
[2018-12-18] MEDS: Albuterol/Ipratropium NEB.SOL* Albuterol 2.5 MG/Ipratropium 0.5 MG 3 ML INH SCH (20:53)
[2018-12-18] MEDS: Fluticasone/Vilanterol MDI(NF) 100/25 MDI INH SCH (20:54)
--- NOTE | 2018-12-18 20:58 | HP ---
CC: Dr. Lewis * ADMISSION HISTORY AND PHYSICAL: DATE OF ADMISSION: 12/18/18 PRIMARY CARE PROVIDER: Dr. Lewis. MY ATTENDING PHYSICIAN: Dr. Augustine Aiken.* (DICTATED BY BLANCA MEDLEY NP) CHIEF COMPLAINT: Suicidal ideation and hypotension. HISTORY OF PRESENT ILLNESS: Mr. Cortez is a 63-year-old male patient with a recent admission approximately 3 to 4 weeks ago with COPD exacerbation and acutely decompensated heart failure that required ICU admission for hypoxic respiratory failure. The patient also has longstanding history of alcohol abuse. He was discharged in stable condition on 11/27/18; however, he returns to the emergency department today from [facility] with report of suicidal ideation, depression, and some sadness; however, he was found to be somewhat quiet and reportedly lethargic. He was sent over to the medical site of the emergency department for evaluation where he was found to be hypotensive. Blood pressure was checked several times; systolics were reportedly very low. First blood pressure was initially 65/44, repeat was 82/ 40. The patient did have lab work done, which showed an alcohol level of 66. The patient was given 1 L banana bag given his EtOH use. His blood pressure remained somewhat low. He was also given 2 additional liters of fluid thereafter. His chest x-ray did not show any consolidation, but did show some fluid overload. The patient did not have a white count or a fever and chest x- ray did not show a pneumonia; however, he does have a cough. He was given antibiotics in the emergency department and then the hospitalists were called for evaluation for admission. Upon my evaluation, the patient is stable, alert and oriented. He does not exhibit any signs of confusion. He does have a cough , but he is quite awake right now with stable vital signs. PAST MEDICAL HISTORY: Significant for: 1. Bipolar disorder. 2. Depression. 3. Seizure disorder. 4. Alcohol abuse. 5. Tobacco abuse. 6. Hypertension. 7. Coronary artery disease. 8. Mitral valve repair. 9. Pacemaker insertion. 10. SIADH. 11. Polyneuropathy. 12. Peripheral vascular disease. 13. COPD. 14. Mitral regurgitation. 15. Chronic AFib. 16. Hyperlipidemia. PAST SURGICAL HISTORY: Significant for: 1. Pacemaker insertion. 2. History of bioprosthetic mitral valve replacement. MEDICATIONS: His home medications include: 1. Keppra 750 mg p.o. 3 times daily. 2. Levothyroxine 25 mcg p.o. daily. 3. Metoprolol succinate 25 mg p.o. at bedtime. 4. Multivitamin 1 tab p.o. daily. 5. Nicotine patch 1 patch daily. 6. Sertraline 200 mg p.o. daily. 7. Flomax 0.4 mg p.o. daily. 8. Thiamine 100 mg p.o. daily. 9. Spiriva 2 caps inhaled daily. 10. Incruse Ellipta 1 puff inhaled daily. 11. Aspirin 81 mg p.o. daily. 12. Atorvastatin 20 mg p.o. daily. 13. Pletal 100 mg p.o. b.i.d. 14. Digoxin 0.125 mg p.o. daily. 15. Diltiazem CD 240 mg p.o. daily. 16. Depakote ER 1500 mg in the morning. 17. Breo Ellipta 1 puff inhaled daily. 18. Folic acid 1 mg p.o. daily. 19. Lorazepam 2 mg p.o. b.i.d. as needed. ALLERGIES: He has no known drug allergies. FAMILY HISTORY: The patient did not report any family history. SOCIAL HISTORY: He is an everyday smoker and everyday drinker of alcohol with long- term history of alcohol abuse. He does not have any family in the area and does not report having a healthcare proxy. REVIEW OF SYSTEMS: The patient denies any fever, chills, or malaise. Denies any visual disturbances. No chest pain or palpitations. He does report a cough and some sputum production. He does not have any chest pain. He denies any nausea, vomiting, or diarrhea. No constipation. No dysuria. No arthralgias or myalgias. No weakness. No rashes. He does have some bilateral numbness of the feet, which is his baseline. He does from a psychiatric perspective report feeling depressed, but no further constitutional complaints. PHYSICAL EXAMINATION GENERAL: Reveals a well-appearing gentleman, somewhat pleasant, in no acute distress. VITAL SIGNS: Blood pressure 119/79, heart rate 96, O2 saturation 98% on room air with a temperature of 97.0. HEENT: The patient is atraumatic, normocephalic. PERRLA. Nonicteric sclerae. Oral mucosa is moist. Tongue is midline. He has poor dentition, edentulous in the lower. NECK: Supple. No carotid bruits auscultated. No thyromegaly appreciated. LUNGS: Coarse rales two-thirds up from the bases with bilateral inspiratory and expiratory wheeze. CARDIOVASCULAR: S1, S2 present. Rate is irregular. No gallops or rubs noted. ABDOMEN: Soft, nontender, nondistended. Positive bowel sounds in all 4 quadrants. : Deferred. MUSCULOSKELETAL: There is no clubbing, no cyanosis, and no pedal edema. He has +2 distal pulses palpable. Full range of motion. Gross motor and sensation are intact. NEUROLOGIC: He is alert and oriented x3. He exhibits no focal deficits. PSYCHIATRIC: He is pleasant, cooperative and appropriate, although he does again report feeling sad. He does not report suicidal ideation to me during our interview. DIAGNOSTIC STUDIES/LABORATORY DATA: WBC is 5.3, RBC is 4.10, hemoglobin 12.4, hematocrit 37, MCV 89, MCH 30, MCHC 34, RDW is 16, platelets 247. Sodium 129, potassium 4.0, chloride 94, CO2 27, anion gap 8, BUN 7, creatinine 0.97, GFR 78.2, BUN to creatinine ratio 7.2, glucose 96. Calcium 8.8. Total bilirubin 0.50, AST 16, ALT 12, alk phos 92. Ammonia level of 50. BNP is pending. Total protein 16.5, albumin 3.4, globulin 3.1, albumin to globulin ratio 1.2. TSH is 4.04. Urinalysis is yellow, cloudy urine, but is negative for any acute infarct or process. Toxicology screening, digoxin level is slightly low at 0.6. Serum alcohol level at 67. Imaging: CAT scan of the brain dated 12/18/18 shows no evidence for any acute intracranial abnormality. Findings suggested chronic pansinusitis. Chest x- ray also dated 12/18/18 shows finding suggestive of congestive heart failure with less likely pneumonia. IMPRESSION: Mr. Cristhian Cortez is a 63-year-old male patient with a longstanding history of depression, bipolar disorder, complex cardiac conditions , and alcoholism that presented in the emergency department today with suicidal ideation, found to be hypotensive and in heart failure. PLAN: The patient has been admitted to telemetry service. 1. Suicidal ideation. MHU has already been consulted. The patient has been placed on one-to-one observation. He will be continued on his current psychiatric medications and we will look to Psychiatry for any additional recommendations. Plan will be once the patient is medically optimized, he will likely go to behavioral services unit for additional care. 2. Hypotension. The patient states he has been having trouble with his beta nicci medication and titrating his meds at home. He said he had a discussion with his primary care provider who did want to lower his beta nicci and his yard hostler who actually wanted to increase it. At this point, we will hold his beta nicci, continue his digoxin. Currently, his blood pressure is stable. We will continue his Cardizem for his rate control for his atrial fibrillation. However, his current dose is 240 mg that will be held. We will place him on 30 mg q.6 hours with holding parameters, holding for systolic less than 110. 3. For his history of alcohol abuse, his alcohol level is currently 67. We will place him on WAM protocol. He has already received thiamine in his banana bag. This will be continued orally daily, starting tomorrow with Ativan on his WAM protocol. 4. History of atrial fibrillation. Again, we will continue his digoxin. Continue telemetry. Change his Cardizem to 30 mg q.6 hours with holding parameters and hold his beta nicci for now until his blood pressure recovers. 5. History of heart failure with hypoxic respiratory failure in recent admission. The patient currently has audible rales and is fluid overloaded on his chest x-ray. Unfortunately, because the patient did receive aggressive fluid management in the emergency department, 3 L of fluid for his blood pressure, I am concerned that he was already in a modicum of heart failure on arrival and now will be further in failure. He will receive 1 dose of IV Lasix now 40 mg. We will monitor his output, strict I's and O's and continue IV Lasix daily. Continue to monitor his respiratory status closely. Hopefully, the patient will not require more invasive respiratory measures like Vapotherm, which he required Vapotherm and BiPAP on his last admission. We will continue to monitor this closely. The patient did just have an echocardiogram on . This test will not be repeated at this time unless there is an acute change in status. 6. History of chronic obstructive pulmonary disease and tobacco abuse. At this point, the patient does not have a white count. He does not have pneumonia on chest x-ray. He does have sputum production; however, we will stop antibiotics. He does not appear toxic and I do not believe his hypertension is secondary to sepsis. He has no fever and again no leukocytosis. We will continue him on his DuoNeb and inhalers and continue to monitor his respiratory status. I have started him on guaifenesin as well. We will hold off on IV steroids for now. 7. History of syndrome of inappropriate secretion of antidiuretic hormone. His sodium is low at 129, but currently stable for his baseline. We will monitor laboratories daily. 8. History of seizure disorder. We will continue the patient's Keppra and Depakote at current doses. 9. History of coronary artery disease, pacemaker insertion and valve replacement. The patient is currently stable, not exhibiting any signs of chest pain. We will continue him on his aspirin and statin daily. 10. DVT prophylaxis: The patient will be placed on heparin subcutaneous q.8 hours. He has high risk. 11. Diet: Heart healthy, caffeine okay as tolerated. 12. Ambulation: Ambulate as tolerated. 13. Observation: One-to-one until cleared by psychiatry. 14. Disposition: The patient has been admitted to inpatient telemetry. Rest of the patient's course will be determined by further diagnostics, laboratories, and any other input from other providers as warranted during this admission. TIME SPENT: Approximately 70 minutes interviewing the patient, developing inpatient plan of care. This plan of care has been discussed with Dr. Augustine Aiken, attending on this case who is in agreement with this inpatient plan of care. BLANCA MEDLEY NP [id number]/CPS #: [id number] YARIEL
[2018-12-18] MEDS: Diltiazem TAB* 30 MG PO SCH (23:25)
[2018-12-19] MEDS: Albuterol/Ipratropium NEB.SOL* Albuterol 2.5 MG/Ipratropium 0.5 MG 3 ML INH SCH ×5 (01:40→19:18)
[2018-12-19] MEDS: Heparin VIAL(*) 5000 UNITS/ML VIAL (FIVE THOUSAND) SUBCUT SCH ×3 (05:01→20:17)
[2018-12-19] MEDS: Levothyroxine TAB* 25 MCG TAB PO SCH (05:04)
[2018-12-19] MEDS: Diltiazem TAB* 30 MG PO SCH ×4 (05:05→18:25)
[2018-12-19 05:54] LABS: ABS Eosinophils 0.1 10^3/ul (0-0.6); ABS Monocytes 0.7 10^3/ul (0-0.8); ABS Neutrophils 3.4 10^3/ul (1.5-7.7); Eosinophil % 1.7 %; Hematocrit 37 % (42-52); Hemoglobin 12.7 g/dL (14.0-18.0); Lymphocyte % 18.7 %; Mean Corpuscular HGB Conc 34 g/dL (31-36); Mean Corpuscular Hemoglobin 31 pg (27-31); Mean Corpuscular Volume 89 fL (80-94); Mean Platelet Volume 7.4 fL (7.4-10.4); Nucleated Red Blood Cells % 0.1; Platelet Count 203 10^3/uL (150-450); Red Blood Count 4.13 10^6 /uL (4.18-5.48); Red Cell Distribution Width 17 % (10-15); White Blood Count 5.2 10^3/uL (3.5-10.8)
[2018-12-19 06:16] LABS: Albumin 3.5 g/dL (3.2-5.2); Albumin/Globulin Ratio 1.2 (1-3); BUN/Creatinine Ratio 11.1 (8-20); Calcium 8.6 mg/dL (8.6-10.3); EGFR African American 103.1 (>60); EGFR Non-African American 85.2 (>60); Total Bilirubin 0.6 mg/dL (0.2-1.0); Total Protein 6.5 g/dL (6.4-8.9)
[2018-12-19] MEDS ORDERED: Spiriva Inhaler DEVICE* 1 EACH DEVICE INH ONE (09:00)
[2018-12-19] MEDS ORDERED: Furosemide IV* 10 MG/ML 2 ML VIAL (20 MG) IV ONE (09:00)
[2018-12-19] MEDS ORDERED: Umeclidinium 62.5 MDI(NF) MDI INH SCH (09:00)
[2018-12-19] MEDS: Tiotropium CAP.INH* CAP.INH/18 MCG (USE ORDER SET !) INH SCH (09:12)
[2018-12-19] MEDS: Fluticasone/Vilanterol MDI(NF) 100/25 MDI INH SCH (09:16)
[2018-12-19] MEDS: Mometasone/Formoter 200/5 MDI INH SCH ×2 (10:10→19:18)
[2018-12-19] MEDS: Aspirin EC TAB* 81 MG TAB.EC PO SCH (10:17)
[2018-12-19] MEDS: Atorvastatin* 20 MG TAB PO SCH (10:18)
[2018-12-19] MEDS: Cilostazol TAB* 100 MG PO SCH ×2 (10:18→20:17)
[2018-12-19] MEDS: Digoxin TAB* 0.125 MG PO SCH (10:19)
[2018-12-19] MEDS: guaiFENesin ER TAB 600 MG PO SCH ×2 (10:20→20:17)
[2018-12-19] MEDS: Divalproex ER TAB(*) 500 MG PO SCH (10:20)
[2018-12-19] MEDS: Folic Acid TAB* 1 MG PO SCH (10:20)
[2018-12-19] MEDS: Multivitamins/Minerals TAB PO SCH (10:21)
[2018-12-19] MEDS: levETIRAcetam TAB* 500 MG PO SCH ×3 (10:21→20:17)
[2018-12-19] MEDS: Thiamine TAB* 100 MG TAB PO SCH (10:22)
[2018-12-19] MEDS: Sertraline* 100 MG TAB PO SCH (10:22)
[2018-12-19] MEDS: Tamsulosin CAP* 0.4 MG PO SCH (10:22)
--- NOTE | 2018-12-19 11:16 | PN ---
Subjective Date of Service: 12/19/18 Interval History: He is asleep at time of evaluation but awakens to touch and answers questions appropriately. Patient has continued cough today. He feels his breathing is at his baseline. He states a cigarette would make him feel better. Denies chest pain, dyspnea, fever/chills, abd pain, nausea/vomiting/diarrhea. Objective Active Medications: Acetaminophen (Tylenol Tab*) 650 mg PO Q4H PRN PRN Reason: FEVER/PAIN Albuterol/Ipratropium (Duoneb (Albuterol 2.5 Mg/Ipratropium 0.5 Mg)) 1 neb INH Q6H [facility] Last Admin: 12/19/18 06:59 Dose: 1 neb Aspirin (Aspirin Ec Tab*) 81 mg PO DAILY [facility] Last Admin: 12/19/18 10:17 Dose: 81 mg Atorvastatin Calcium (Lipitor*) 20 mg PO DAILY [facility] Last Admin: 12/19/18 10:18 Dose: 20 mg Cilostazol (Pletal Tab*) 50 mg PO BID [facility] Last Admin: 12/19/18 10:18 Dose: 50 mg Digoxin (Lanoxin Tab*) 0.125 mg PO DAILY [facility] Last Admin: 12/19/18 10:19 Dose: 0.125 mg Diltiazem HCl (Cardizem Tab*) 30 mg PO Q6HR [facility] Last Admin: 12/19/18 05:05 Dose: 30 mg Divalproex Sodium (Depakote Er Tab(*)) 1,500 mg PO QAM [facility] Last Admin: 12/19/18 10:20 Dose: 1,500 mg Folic Acid (Folvite Tab*) 1 mg PO DAILY [facility] Last Admin: 12/19/18 10:20 Dose: 1 mg Guaifenesin (Mucinex*) 600 mg PO BID [facility] Last Admin: 12/19/18 10:20 Dose: 600 mg Heparin Sodium (Porcine) (Heparin Vial(*)) 5,000 units SUBCUT Q8HR [facility] Last Admin: 12/19/18 05:01 Dose: Not Given Levetiracetam (Keppra Tab*) 750 mg PO TID [facility] Last Admin: 12/19/18 10:21 Dose: 750 mg Levothyroxine Sodium (Synthroid Tab*) 25 mcg PO DAILY@0600 [facility] Last Admin: 12/19/18 05:04 Dose: 25 mcg Lorazepam (Ativan Tab(*)) 0 - [address] [facility] PROTOCOL [facility]; Protocol Last Admin: 12/18/18 20:35 Dose: 2 mg Mometasone Furoate/Formoterol Fumar (Dulera 200/5 Mdi*) 2 puff INH BID [facility] Last Admin: 12/19/18 10:10 Dose: Not Given Multivitamins/Minerals (Theragran/Minerals Tab*) 1 tab PO DAILY [facility] Last Admin: 12/19/18 10:21 Dose: 1 tab Sertraline HCl (Zoloft*) 200 mg PO DAILY [facility] Last Admin: 12/19/18 10:22 Dose: 200 mg Tamsulosin HCl (Flomax Cap*) 0.4 mg PO DAILY [facility] Last Admin: 12/19/18 10:22 Dose: 0.4 mg Thiamine HCl (Vitamin B-1 Tab*) 100 mg PO DAILY [facility] Last Admin: 12/19/18 10:22 Dose: 100 mg Tiotropium [place] (Spiriva Cap.Inh*) 1 cap INH DAILY [facility] Last Admin: 12/19/18 09:12 Dose: 1 cap Vital Signs - 8 hr 12/19/18 12/19/18 12/19/18 05:00 05:06 07:04 Temperature 97.7 F Pulse Rate 63 97 Respiratory 18 18 62 Rate Blood Pressure 150/81 (mmHg) O2 Sat by Pulse 91 18 Oximetry 12/19/18 10:19 Temperature Pulse Rate 105 Respiratory Rate Blood Pressure (mmHg) O2 Sat by Pulse Oximetry Oxygen Devices in Use Now: None Appearance: Thin, white male laying in hospital bed, appearing in NAD Eyes: No Scleral Icterus, PERRLA Ears/Nose/Mouth/Throat: Mucous Membranes Moist Neck: NL Appearance and Movements; NL JVP Respiratory: Symmetrical Chest Expansion and Respiratory Effort, - - Wheezes in bilateral lung bases with very faint crackles in bilateral mid-lung fontanez Cardiovascular: NL Sounds; No Murmurs; No JVD, - - irregularly irregular rhythm , consistent with atrial fibrillation Abdominal: - - abdomen soft, nontender, nondistended Extremities: No Edema, No Clubbing, Cyanosis Skin: No Rash or Ulcers Neurological: Alert and Oriented x 3, NL Muscle Strength and Tone Result Diagrams: 12/19/18 05:19 12/19/18 05:19 Assess/Plan/Problems-Billing Assessment: 63 yo male with PMHx significant for COPD, atrial fibrillation (not on AC), CAD , alcohol use, tobacco use, and bipolar disorder who was sent to the ED from [facility] due to suicidal ideation and found to have hypotension. - Patient Problems (1) Hypotension Comment: -hypotensive with MAP in the 50s upon arrival, received 3L IVF in ED -unclear etiology but it appears sepsis is unlikely as there is no evident source of infection; urine negative, CXR without evidence of pneumonia, pt is afebrile and without leukocytosis -may be related to BB, holding home metoprolol -possibly related to afib with rapid rate -patient has been normotensive this morning, will continue to monitor (2) Alcohol withdrawal Code(s): F10.239 - ALCOHOL DEPENDENCE WITH WITHDRAWAL, UNSPECIFIED SNOMED Code (s): 706960627 Comment: -patient has known hx of alcohol use disorder -WAM protocol ordered; pt has not received ativan since yesterday evening -minimally sedated today but no complaints of nausea, not tremulous (3) Suicidal ideation Code(s): R45.851 - SUICIDAL IDEATIONS SNOMED Code(s): 6462446 Comment: -hx of bipolar disorder with depression -patient sent to ED from [facility] due to suicidal ideations -patient feels his mental status has improved today -one to one monitor discontinued per psych -Psychiatry consulted, determined patient without need for further psych care and continue current psych management, signed off -continue zoloft and keppra (4) Afib Code(s): I48.91 - UNSPECIFIED ATRIAL FIBRILLATION SNOMED Code(s): 94826841 Comment: -continue home digoxin, was subtherapeutic at time of admission (dig level 0.6) -patient not on AC due to frequent falls -holding home metoprolol -patient was rate controlled at time of evaluation but later with tachycardia frequently to 115-120s; increased diltiazem to 45 mg po q6h (5) COPD (chronic obstructive pulmonary disease) Code(s): J44.9 - CHRONIC OBSTRUCTIVE PULMONARY DISEASE, UNSPECIFIED SNOMED Code(s): 44505316 Comment: -there is some wheezing on lung exam today indicating a possibility of acute exacerbation, likely due to continued tobacco use -takes breo ellipta at home, using dulera in the hospital -continuing schedule duonebs, spiriva, flutter valve, mucinex -started prednisone 40mg po -productive cough continues (6) CAD (coronary artery disease) Code(s): I25.10 - ATHSCL HEART DISEASE OF [place] CORONARY ARTERY W/O ANG PCTRS SNOMED Code(s): 76438452 Comment: -continue ASA, statin -holding metoprolol in setting of hypotension (7) HTN (hypertension) Code(s): I10 - ESSENTIAL (PRIMARY) HYPERTENSION SNOMED Code(s): 96649449 Comment: -patient arrived to ED with significant hypotension, further described above -holding metoprolol in setting of hypotension (8) Hyponatremia Code(s): E87.1 - HYPO-OSMOLALITY AND HYPONATREMIA SNOMED Code(s): 25059313 Comment: -patient known to have chronic hyponatremia (baseline ~127) with hx of SIADH -improving; 129 at admission -> 132 today (9) Tobacco use Code(s): Z72.0 - TOBACCO USE SNOMED Code(s): 358496937 Comment: -patient continues to smoke cigarettes daily in setting of COPD -refuses nicotine replacement at this time -discussed improtance of smoking cessation to prevent COPD exacerbation (10) DVT prophylaxis Code(s): Z29.9 - ENCOUNTER FOR PROPHYLACTIC MEASURES, UNSPECIFIED SNOMED Code( s): 985584955 Comment: -HSQ (11) Full code status Code(s): Z78.9 - OTHER SPECIFIED HEALTH STATUS SNOMED Code(s): 030159234 Status and Disposition: remains obv pending medical improvement
[2018-12-19] MEDS: predniSONE TAB* 20 MG PO SCH (13:35)
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
[2018-12-19] MEDS: LORazepam TAB(*) 1 MG PO SCH (20:13)
[2018-12-19 22:35] LABS: BUN/Creatinine Ratio 14.5 (8-20); Calcium 9.5 mg/dL (8.6-10.3); EGFR African American 81.8 (>60); EGFR Non-African American 67.6 (>60); Magnesium 1.7 mg/dL (1.9-2.7); Potassium 4.1 mmol/L (3.5-5.0)
[2018-12-19] MEDS ORDERED: Magnesium Sulfate IV* 3 GM in NS 0.9% 100 ML* 100 ML IVPB ONE (23:18)
[2018-12-20] MEDS: Diltiazem TAB* 30 MG PO SCH ×2 (00:01→06:25)
[2018-12-20] MEDS: Albuterol/Ipratropium NEB.SOL* Albuterol 2.5 MG/Ipratropium 0.5 MG 3 ML INH SCH ×4 (01:04→19:31)
[2018-12-20] MEDS: LORazepam TAB(*) 1 MG PO SCH ×3 (01:23→21:06)
--- NOTE | 2018-12-20 04:04 | PN ---
Hospitalist Progress Note Date of Service: 12/19/18 Nurse called to report multiple short runs of asymptomatic VT. Labs checked and was noted to have hypomagnesemia. Will give mag 3gm x1 now. Will add mag to morning labs for tomorrow.
[2018-12-20] MEDS: Heparin VIAL(*) 5000 UNITS/ML VIAL (FIVE THOUSAND) SUBCUT SCH ×3 (06:24→21:12)
[2018-12-20] MEDS: Levothyroxine TAB* 25 MCG TAB PO SCH (06:25)
[2018-12-20] MEDS: Mometasone/Formoter 200/5 MDI INH SCH ×2 (07:11→19:31)
[2018-12-20] MEDS: Tiotropium CAP.INH* CAP.INH/18 MCG (USE ORDER SET !) INH SCH (07:11)
[2018-12-20 07:35] LABS: BUN/Creatinine Ratio 14.5 (8-20); Calcium 9.2 mg/dL (8.6-10.3); EGFR African American 113.2 (>60); EGFR Non-African American 93.6 (>60); Potassium 3.8 mmol/L (3.5-5.0)
[2018-12-20] MEDS: Aspirin EC TAB* 81 MG TAB.EC PO SCH (09:18)
[2018-12-20] MEDS: Tamsulosin CAP* 0.4 MG PO SCH (09:18)
[2018-12-20] MEDS: Thiamine TAB* 100 MG TAB PO SCH (09:18)
[2018-12-20] MEDS: Divalproex ER TAB(*) 500 MG PO SCH (09:18)
[2018-12-20] MEDS: Digoxin TAB* 0.125 MG PO SCH (09:18)
[2018-12-20] MEDS: Folic Acid TAB* 1 MG PO SCH (09:18)
[2018-12-20] MEDS: Multivitamins/Minerals TAB PO SCH (09:18)
[2018-12-20] MEDS: Atorvastatin* 20 MG TAB PO SCH (09:18)
[2018-12-20] MEDS: predniSONE TAB* 20 MG PO SCH (09:18)
[2018-12-20] MEDS: Cilostazol TAB* 100 MG PO SCH ×2 (09:18→20:56)
[2018-12-20] MEDS: Sertraline* 100 MG TAB PO SCH (09:18)
[2018-12-20] MEDS: guaiFENesin ER TAB 600 MG PO SCH ×2 (09:19→20:56)
[2018-12-20] MEDS: levETIRAcetam TAB* 500 MG PO SCH (10:43)
[2018-12-20 11:38] LABS: Magnesium 2.6 mg/dL (1.9-2.7)
[2018-12-20] MEDS: Diltiazem TAB* 60 MG PO SCH ×3 (12:22→23:49)
[2018-12-20] MEDS ORDERED: Diltiazem IV push/loading dose 5 MG/ML 5 ML vial (25 mg) IV SLOW PU ONE ×2 (13:08→15:46)
[2018-12-20] MEDS: Nicotine PATCH 21 MG/24 HR* PATCH TRANSDERM SCH (13:23)
[2018-12-20] MEDS: levETIRAcetam LIQ* 500 MG/5 ML UDC PO SCH ×2 (13:38→21:06)
[2018-12-20] MEDS ORDERED: Metoprolol Succinate XL TAB* 25 MG PO SCH (14:00)
[2018-12-20] MEDS ORDERED: Potassium Chlor TAB* 20 MEQ TAB.ER PO ONE (14:01)
--- NOTE | 2018-12-20 14:11 | PN ---
Subjective Date of Service: 12/20/18 Interval History: Patient reports "feeling fatigued" today. At time of evaluation he denies difficulty breathing, chest pain, dizziness, fever/chills, abd pain, nausea/ vomiting. In the afternoon, received notification from nursing that patient had continued tachycardia, and later had 23 beats of Vtach. He reportedly had chest tightness during the run of Vtach. Objective Active Medications: Acetaminophen (Tylenol Tab*) 650 mg PO Q4H PRN PRN Reason: FEVER/PAIN Last Admin: 12/19/18 21:37 Dose: 650 mg Albuterol/Ipratropium (Duoneb (Albuterol 2.5 Mg/Ipratropium 0.5 Mg)) 1 neb INH Q6H [facility] Last Admin: 12/20/18 12:15 Dose: 1 neb Aspirin (Aspirin Ec Tab*) 81 mg PO DAILY [facility] Last Admin: 12/20/18 09:18 Dose: 81 mg Atorvastatin Calcium (Lipitor*) 20 mg PO DAILY [facility] Last Admin: 12/20/18 09:18 Dose: 20 mg Cilostazol (Pletal Tab*) 50 mg PO BID [facility] Digoxin (Lanoxin Tab*) 0.125 mg PO DAILY [facility] Last Admin: 12/20/18 09:18 Dose: 0.125 mg Diltiazem HCl (Cardizem Tab*) 60 mg PO Q6HR [facility] Last Admin: 12/20/18 12:22 Dose: 60 mg Divalproex Sodium (Depakote Er Tab(*)) 1,500 mg PO QAM [facility] Last Admin: 12/20/18 09:18 Dose: 1,500 mg Folic Acid (Folvite Tab*) 1 mg PO DAILY [facility] Last Admin: 12/20/18 09:18 Dose: 1 mg Guaifenesin (Mucinex*) 600 mg PO BID [facility] Last Admin: 12/20/18 09:19 Dose: 600 mg Heparin Sodium (Porcine) (Heparin Vial(*)) 5,000 units SUBCUT Q8HR [facility] Last Admin: 12/20/18 13:37 Dose: 5,000 units Hydroxyzine HCl (Atarax Tab*) 25 mg PO Q6H PRN PRN Reason: ANXIETY Levetiracetam (Keppra Liq*) 750 mg PO TID [facility] Last Admin: 12/20/18 13:38 Dose: 750 mg Levothyroxine Sodium (Synthroid Tab*) 25 mcg PO DAILY@0600 [facility] Last Admin: 12/20/18 06:25 Dose: 25 mcg Lorazepam (Ativan Tab(*)) 0 - 6 mg PO .PER [facility] PROTOCOL [facility]; Protocol Last Admin: 12/20/18 01:23 Dose: 2 mg Metoprolol Succinate (Toprol Xl Tab*) 12.5 mg PO DAILY [facility] Last Admin: 12/20/18 13:38 Dose: 12.5 mg Mometasone Furoate/Formoterol Fumar (Dulera 200/5 Mdi*) 2 puff INH BID [facility] Last Admin: 12/20/18 07:11 Dose: 2 puff Multivitamins/Minerals (Theragran/Minerals Tab*) 1 tab PO DAILY [facility] Last Admin: 12/20/18 09:18 Dose: 1 tab Nicotine (Nicotine Patch 21 Mg/24 Hr*) 1 patch TRANSDERM DAILY [facility] Last Admin: 12/20/18 13:23 Dose: 1 patch Pharmacy Profile Note (Nicotine Patch Removal Note*) 1 note FOLLOW UP 2100 [facility] Potassium Chloride (Klor Con Er Tab*) 20 meq PO ONCE ONE Stop: 12/20/18 14:02 Prednisone (Deltasone Tab*) 40 mg PO DAILY [facility] Last Admin: 12/20/18 09:18 Dose: 40 mg Sertraline HCl (Zoloft*) 200 mg PO DAILY [facility] Last Admin: 12/20/18 09:18 Dose: 200 mg Tamsulosin HCl (Flomax Cap*) 0.4 mg PO DAILY [facility] Last Admin: 12/20/18 09:18 Dose: 0.4 mg Thiamine HCl (Vitamin B-1 Tab*) 100 mg PO DAILY [facility] Last Admin: 12/20/18 09:18 Dose: 100 mg Tiotropium [place] (Spiriva Cap.Inh*) 1 cap INH DAILY [facility] Last Admin: 12/20/18 07:11 Dose: 1 cap Vital Signs - 8 hr 12/20/18 12/20/18 12/20/18 07:15 07:32 08:00 Temperature 97.2 F Pulse Rate 90 110 Respiratory 16 19 20 Rate Blood Pressure 103/65 (mmHg) O2 Sat by Pulse 92 93 Oximetry 12/20/18 12/20/18 12/20/18 09:18 12:16 13:13 Temperature Pulse Rate 100 90 Respiratory 19 Rate Blood Pressure 117/75 (mmHg) O2 Sat by Pulse 95 Oximetry Oxygen Devices in Use Now: None Appearance: White male laying in hospital bed appearing in NAD Eyes: No Scleral Icterus, PERRLA Ears/Nose/Mouth/Throat: Mucous Membranes Moist Neck: NL Appearance and Movements; NL JVP Respiratory: Symmetrical Chest Expansion and Respiratory Effort, - - Rhonchi and wheezing in bilateral lower lobes Cardiovascular: NL Sounds; No Murmurs; No JVD, - - irregularly irregular rhythm , consistent with atrial fibrillation Abdominal: - - abdomen soft, nontender, nondistended Extremities: No Edema, No Clubbing, Cyanosis Skin: No Rash or Ulcers Neurological: Alert and Oriented x 3, NL Muscle Strength and Tone Result Diagrams: 12/19/18 05:19 12/20/18 06:57 Assess/Plan/Problems-Billing Assessment: 63 yo male with PMHx significant for COPD, atrial fibrillation (not on AC), CAD , alcohol use, tobacco use, and bipolar disorder who was sent to the ED from [facility] due to suicidal ideation and found to have hypotension. - Patient Problems (1) Atrial fibrillation with rapid ventricular response Current Visit: No Status: Acute Code(s): I48.91 - UNSPECIFIED ATRIAL FIBRILLATION SNOMED Code(s): 130589773783635 Comment: -digoxin was subtherapeutic at time of admission (dig level 0.6) -patient not on AC due to frequent falls -patient reports and pharmacy confirms that he is prescribed digoxin every other day at home, med rec has been updated; continuing digoxin daily -home betablocker was previously held and home cardizem total dose decreased in setting of hypotension -hypotension has overall improved and it appears that perhaps beta nicci discontinuation has lead to rebound tachycardia -cardizem increased to home total dose; did give one dose IV cardizem 5mg today with little improvement of rate, currently 120s -restarted metoprolol to 12.5mg (half of home dose) -consulting cardiology, appreciate recommendations (2) V-tach Code(s): I47.2 - VENTRICULAR TACHYCARDIA SNOMED Code(s): 54168984 Comment: -patient with 23 beats of Vtach today with reported chest tightness; had asymptomatic run overnight -Mg 2.6 today -K 3.8, replacing with oral KCl -cardiology consulted (3) COPD exacerbation Code(s): J44.1 - CHRONIC OBSTRUCTIVE PULMONARY DISEASE W (ACUTE) EXACERBATION SNOMED Code(s): 603631047 Comment: -likely due to continued daily tobacco use -takes breo ellipta at home, using dulera in the hospital -continuing schedule duonebs, spiriva, flutter valve, mucinex, prednisone 40mg po -continued rhonchi and wheezing today -possibly a contributing factor to afib with RVR (4) Hypotension Comment: -hypotensive with MAP in the 50s upon arrival, received 3L IVF in ED -unclear etiology but it appears sepsis is unlikely as there is no evident source of infection; urine negative, CXR without evidence of pneumonia, pt is afebrile and without leukocytosis -may be related to BB or poor oral intake due to alcohol use -possibly related to afib with rapid rate -SBP 100s-110s this morning, will continue to monitor -metoprolol was previously held in setting of hypotension but restarting due to RVR (5) Alcohol withdrawal Code(s): F10.239 - ALCOHOL DEPENDENCE WITH WITHDRAWAL, UNSPECIFIED SNOMED Code (s): 909533737 Comment: -patient has known hx of alcohol use disorder -WAM protocol ordered; pt received ativan dose overnight -patient not diaphoretic or nauseous, but is tremulous (6) Suicidal ideation Code(s): R45.851 - SUICIDAL IDEATIONS SNOMED Code(s): 2840174 Comment: -hx of bipolar disorder with depression -patient sent to ED from [facility] due to suicidal ideations -patient feels his mental status has improved today -one to one monitor discontinued per psych -Psychiatry consulted, determined patient without need for further psych care and continue current psych management, signed off -continue zoloft and keppra (7) CAD (coronary artery disease) Code(s): I25.10 - ATHSCL HEART DISEASE OF [place] CORONARY ARTERY W/O ANG PCTRS SNOMED Code(s): 13256918 Comment: -continue ASA, statin, metoprolol (8) HTN (hypertension) Code(s): I10 - ESSENTIAL (PRIMARY) HYPERTENSION SNOMED Code(s): 19260919 Comment: -patient arrived to ED with significant hypotension, further described above -holding metoprolol in setting of hypotension (9) Hyponatremia Code(s): E87.1 - HYPO-OSMOLALITY AND HYPONATREMIA SNOMED Code(s): 76940801 Comment: -patient known to have chronic hyponatremia (baseline ~127) with hx of SIADH -at baseline, 130 today (10) Tobacco use Code(s): Z72.0 - TOBACCO USE SNOMED Code(s): 616194410 Comment: -patient continues to smoke cigarettes daily in setting of COPD -discussed improtance of smoking cessation to prevent COPD exacerbation -started nicotine patch (11) DVT prophylaxis Code(s): Z29.9 - ENCOUNTER FOR PROPHYLACTIC MEASURES, UNSPECIFIED SNOMED Code( s): 988168944 Comment: -HSQ (12) Full code status Code(s): Z78.9 - OTHER SPECIFIED HEALTH STATUS SNOMED Code(s): 195632830 Status and Disposition: inpatient for medical management
--- NOTE | 2018-12-20 17:56 | CONS ---
CC: Dr. Lewis; Dr. Reich CARDIOLOGY CONSULTATION: DATE OF CONSULT: 12/20/18 REFERRING PHYSICIAN: ISAC Hadlye REASON FOR CARDIOLOGY CONSULTATION: Heart rate control recommendations in a patient with rapid atrial fibrillation as part of beta-nicci withdrawal. HISTORY OF PRESENT ILLNESS: Mr. Cortez is a 63-year-old gentleman with long psychiatric history as well as bioprosthetic mitral valve replacement on followed by [employer] pacemaker on 12/31/15, who apparently had suicidal ideation, alcohol intoxication, and hypotension on admission presumably due to dehydration, which was on 12/18/18. Since being admitted, he has been found to have COPD exacerbation. His beta-nicci was held due to the hypotension. His pulse has been high recently likely due to beta-nicci withdrawal. Review of telemetry strip shows AFib with Liu phenomenon, i.e., aberrancy. No convincing ventricular tachycardia. The patient himself denies chest pain, palpitations, and he states he has chronic shortness of breath. He has been coughing with sputum production. He has not fainted. PAST CARDIAC HISTORY: Significant for #27 MDT mitral valve bioprosthetic replacement and MAZE procedure on 12/29/15 at [facility]. Cath [facility] 12/28/15; mild LAD CAD only. He then had a [employer] pacemaker placed on 12/31/15 following that. He apparently has a history of atrial fibrillation, on rate control, which is chronic and he is felt not to be a candidate for anticoagulation. PAST MEDICAL HISTORY: He has peripheral vascular disease, psychiatric illnesses with disabling bipolar disorder, alcohol abuse, seizure disorder, tobacco abuse, hypertension, SIADH, polyneuropathy, COPD, hyperlipidemia, hypothyroidism, and BPH. PAST SURGICAL HISTORY: As above, regarding the bioprosthetic mitral valve replacement in December 2015 followed by pacemaker placement [employer] type. OUTPATIENT MEDICATIONS: 1. Keppra 750 mg p.o. t.i.d. 2. Levothyroxine 25 mcg once a day. 3. Toprol-XL 25 mg p.o. q.h.s. 4. Multivitamin once a day. 5. Nicotine patch. 6. Sertraline 200 mg once a day. 7. Flomax 0.4 mg once a day. 8. Spiriva 2 caps inhaled daily. 9. Ellipta 1 puff daily. 10. Aspirin 81 mg once a day. 11. Lipitor 20 mg once a day. 12. Pletal 100 mg p.o. b.i.d. 13. Digoxin 0.125 mg once a day. 14. Diltiazem CD 240 mg once a day. 15. Depakote ER 1500 mg once a day. 16. Breo Ellipta 1 puff daily. 17. Folic acid once a day. ALLERGIES TO MEDICATIONS: None. The patient denies shrimp, seafood, or dye allergy. FAMILY HISTORY: Negative for cardiac disease, diabetes, stroke, cancer. SOCIAL HISTORY: The patient is x2 and lives alone. 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 He smokes cigarettes "1 plus" packs per day and he drinks 3 to 6 beers per day. He uses marijuana. He does not do regular exercise. REVIEW OF SYSTEMS: He denies personal history of stroke, cancer, vomiting up blood, coughing up blood, bright red blood per rectum, bleeding stomach ulcers, renal calculi, cholelithiasis, asthma. He has COPD. He does not use home O2. He does not have pneumonia. He denies tuberculosis or sleep apnea. He denies diabetes, hypertension. He was told he had a heart murmur in the past. He denies palpitations. He has disabling bipolar disorder and depression, admitted with suicidal ideation. He denies lupus. He has a history of seizures in the past, he is unsure when his last one was. He follows with neurologist, Dr. Phillip. He has claudication. He denies pulmonary emboli. He has neuropathy in his feet. He denies peripheral edema. He denies heartburn. All other review of systems are negative x14, except as per this EHR and the patient's submitted documentation, which I reviewed with him. PHYSICAL EXAM: Height 5 feet 10 inches, weight 164 pounds. Temperature is 97.2 degrees Fahrenheit; pulse is ranging from 90 to 113, although at times it can be as high as 130 when he is coughing; O2 saturation 95%; blood pressure 117 /75 to 113/68 on admission, it had been as low as 99/71. On general exam, he is a chronically ill-appearing gentleman with a very hoarse voice likely due to cigarette smoking, in no acute distress. HEENT shows the cranium is NCAT. Dry mucosal membranes. Neck veins are not distended. There are no carotid bruits. Visible skin warm and perfused. Affect appropriate. He appears oriented. No significant kyphoscoliosis on back exam. Lungs reveal diffuse rhonchi with increased expiratory phase. No wheezes. Cardiac Exam: S1, S2. Regular rate. Soft systolic murmur heard without radiation. There is no rub, no gallop. PMI is nondisplaced. Abdomen: Soft and nondistended, appears benign. Extremities with trivial peripheral edema. Pulses appear diminished, but he does appear perfused distally. DIAGNOSTIC STUDIES/LAB DATA: The patient had a transthoracic echocardiogram completed on 11/25/18, which showed hyperdynamic left ventricular ejection fraction 65% to 70% with mild dynamic obstruction of the LVOT outflow tract, normally functioning mitral valve bioprosthesis with no significant regurgitation. EKG 12/20/18 AF with RBBB. White blood cell count 5.2, hematocrit 37, platelet count 203,000. Sodium 130, potassium 3.8, chloride 96, bicarbonate 25, BUN 12, creatinine 0.83. Magnesium had been 1.7, is now 2.6. ALT 11. BNP 248. TSH 4.04. Toxicology screen on admission was positive for digoxin 0.6 and serum alcohol 67. IMPRESSION: Mr. Cortez is a 63-year-old gentleman with a history of alcohol abuse, severe bipolar disorder, admitted with suicidal ideation and dehydration. He does have a history of bioprosthetic mitral valve replacement on 12/29/15 followed by [employer] pacemaker on 12/31/15. His atrial fibrillation heart rate being higher is likely due to beta-nicci withdrawal as his beta- ncici had to be held 2 days ago for his hypotension and is only now being restarted, which I agree with and can increase dose as required. Review of his wide complex tachycardia shows atrial fibrillation with aberrancy rather than ventricular tachycardia that is quite irregular and he has known preserved LV function with recent electrolyte abnormalities. RECOMMENDATIONS: 1. Agree with restarting beta-nicci as has been done a little while ago and increase dose as needed. 2. Continue Cardizem and keep potassium 4 to 5 and magnesium 2 to 2.7. 3. The patient is apparently not felt to be a candidate for oral anticoagulation regarding his chronic atrial fibrillation. 4. Continue digoxin. 5. Recommend cigarette smoking cessation and alcohol abstention. 6. Other management as per the hospitalist medicine service and I have discussed the case with Ms. Bruce. 7. The patient should follow up with his usual refractory technician, Dr. Reich, post discharge. Dear Ms. Karen Bruce, many thanks for this kind cardiac consultation opportunity. Please do not hesitate to contact me if you have any questions or concerns regarding the patient's cardiovascular consultative care. [id number]/CPS #: [id number] MTDMaria C
[2018-12-20] MEDS: hydrOXYzine HCL TAB* 25 MG PO PRN (20:57)
[2018-12-20] MEDS: Nicotine Patch Removal NOTE FOLLOW UP SCH (21:09)
[2018-12-20] MEDS: traMADol TAB* 50 MG PO PRN (23:46)
[2018-12-21] MEDS: LORazepam TAB(*) 1 MG PO SCH
[2018-12-21] MEDS: Albuterol/Ipratropium NEB.SOL* Albuterol 2.5 MG/Ipratropium 0.5 MG 3 ML INH SCH ×2 (00:39→07:45)
[2018-12-21] MEDS: Heparin VIAL(*) 5000 UNITS/ML VIAL (FIVE THOUSAND) SUBCUT SCH ×3 (05:33→20:31)
[2018-12-21] MEDS: Diltiazem TAB* 60 MG PO SCH ×3 (05:34→17:57)
[2018-12-21] MEDS: Levothyroxine TAB* 25 MCG TAB PO SCH (05:34)
[2018-12-21] MEDS: Mometasone/Formoter 200/5 MDI INH SCH ×2 (07:45→20:09)
[2018-12-21] MEDS: Tiotropium CAP.INH* CAP.INH/18 MCG (USE ORDER SET !) INH SCH (07:45)
[2018-12-21] MEDS: Nicotine PATCH 21 MG/24 HR* PATCH TRANSDERM SCH (09:17)
[2018-12-21] MEDS: levETIRAcetam LIQ* 500 MG/5 ML UDC PO SCH ×3 (09:17→20:30)
[2018-12-21] MEDS: predniSONE TAB* 20 MG PO SCH (09:19)
[2018-12-21] MEDS: Tamsulosin CAP* 0.4 MG PO SCH (09:19)
[2018-12-21] MEDS: Metoprolol Succinate XL TAB* 25 MG PO SCH (09:19)
[2018-12-21] MEDS: Cilostazol TAB* 100 MG PO SCH ×2 (09:19→20:29)
[2018-12-21] MEDS: Aspirin EC TAB* 81 MG TAB.EC PO SCH (09:20)
[2018-12-21] MEDS: Divalproex ER TAB(*) 500 MG PO SCH (09:20)
[2018-12-21] MEDS: guaiFENesin ER TAB 600 MG PO SCH (09:20)
[2018-12-21] MEDS: Sertraline* 100 MG TAB PO SCH (09:20)
[2018-12-21] MEDS: Thiamine TAB* 100 MG TAB PO SCH (09:20)
[2018-12-21] MEDS: Folic Acid TAB* 1 MG PO SCH (09:20)
[2018-12-21] MEDS: Multivitamins/Minerals TAB PO SCH (09:20)
[2018-12-21] MEDS: Digoxin TAB* 0.125 MG PO SCH (09:20)
[2018-12-21] MEDS: Atorvastatin* 20 MG TAB PO SCH (09:20)
[2018-12-21] MEDS ORDERED: Levalbuterol 1.25MG/0.5ML NEB INH PRN (10:19)
--- NOTE | 2018-12-21 10:27 | PN ---
Subjective Date of Service: 12/21/18 Interval History: Denies palpatations,sob Agitated overnight recd ativan last drink on sun per pt Objective Active Medications: Acetaminophen (Tylenol Tab*) 650 mg PO Q4H PRN PRN Reason: FEVER/PAIN Last Admin: 12/19/18 21:37 Dose: 650 mg Aspirin (Aspirin Ec Tab*) 81 mg PO DAILY [facility] Last Admin: 12/21/18 09:20 Dose: 81 mg Atorvastatin Calcium (Lipitor*) 20 mg PO DAILY [facility] Last Admin: 12/21/18 09:20 Dose: 20 mg Cilostazol (Pletal Tab*) 50 mg PO BID [facility] Last Admin: 12/21/18 09:19 Dose: 50 mg Digoxin (Lanoxin Tab*) 0.125 mg PO DAILY [facility] Last Admin: 12/21/18 09:20 Dose: 0.125 mg Diltiazem HCl (Cardizem Tab*) 60 mg PO Q6HR [facility] Last Admin: 12/21/18 05:34 Dose: 60 mg Divalproex Sodium (Depakote Er Tab(*)) 1,500 mg PO QAM [facility] Last Admin: 12/21/18 09:20 Dose: 1,500 mg Folic Acid (Folvite Tab*) 1 mg PO DAILY [facility] Last Admin: 12/21/18 09:20 Dose: 1 mg Heparin Sodium (Porcine) (Heparin Vial(*)) 5,000 units SUBCUT Q8HR [facility] Last Admin: 12/21/18 05:33 Dose: 5,000 units Hydroxyzine HCl (Atarax Tab*) 25 mg PO Q6H PRN PRN Reason: ANXIETY Last Admin: 12/20/18 20:57 Dose: 25 mg Levalbuterol HCl (Xopenex 1.25 Mg/0.5 Ml Neb.[place]*) 1.25 mg INH Q6H PRN PRN Reason: SOB/WHEEZING Levetiracetam (Keppra Liq*) 750 mg PO TID [facility] Last Admin: 12/21/18 09:17 Dose: 750 mg Levothyroxine Sodium (Synthroid Tab*) 25 mcg PO DAILY@0600 [facility] Last Admin: 12/21/18 05:34 Dose: 25 mcg Lorazepam (Ativan Tab(*)) 0 - 6 mg PO .PER [facility] PROTOCOL [facility]; Protocol Last Admin: 12/21/18 00:00 Dose: 2 mg Metoprolol Succinate (Toprol Xl Tab*) 25 mg PO DAILY [facility] Last Admin: 12/21/18 09:19 Dose: 25 mg Mometasone Furoate/Formoterol Fumar (Dulera 200/5 Mdi*) 2 puff INH BID [facility] Last Admin: 12/21/18 07:45 Dose: 2 puff Multivitamins/Minerals (Theragran/Minerals Tab*) 1 tab PO DAILY [facility] Last Admin: 12/21/18 09:20 Dose: 1 tab Nicotine (Nicotine Patch 21 Mg/24 Hr*) 1 patch TRANSDERM DAILY [facility] Last Admin: 12/21/18 09:17 Dose: 1 patch Pharmacy Profile Note (Nicotine Patch Removal Note*) 1 note FOLLOW UP 2100 [facility] Last Admin: 12/20/18 21:09 Dose: 1 note Prednisone (Deltasone Tab*) 40 mg PO DAILY [facility] Last Admin: 12/21/18 09:19 Dose: 40 mg Sertraline HCl (Zoloft*) 200 mg PO DAILY [facility] Last Admin: 12/21/18 09:20 Dose: 200 mg Tamsulosin HCl (Flomax Cap*) 0.4 mg PO DAILY [facility] Last Admin: 12/21/18 09:19 Dose: 0.4 mg Thiamine HCl (Vitamin B-1 Tab*) 100 mg PO DAILY [facility] Last Admin: 12/21/18 09:20 Dose: 100 mg Tiotropium [place] (Spiriva Cap.Inh*) 1 cap INH DAILY [facility] Last Admin: 12/21/18 07:45 Dose: 1 cap Tramadol HCl (Ultram*) 50 mg PO Q6H PRN PRN Reason: PAIN Last Admin: 12/20/18 23:46 Dose: 50 mg Vital Signs - 8 hr 12/21/18 12/21/18 12/21/18 04:00 04:03 05:14 Temperature 97.7 F Pulse Rate 117 Respiratory 18 18 18 Rate Blood Pressure 130/87 (mmHg) O2 Sat by Pulse 95 Oximetry 12/21/18 12/21/18 12/21/18 07:48 07:49 08:00 Temperature 97.5 F Pulse Rate 101 56 Respiratory 18 18 20 Rate Blood Pressure 136/75 (mmHg) O2 Sat by Pulse 95 95 Oximetry 12/21/18 09:20 Temperature Pulse Rate 101 Respiratory Rate Blood Pressure (mmHg) O2 Sat by Pulse Oximetry Oxygen Devices in Use Now: None Eyes: No Scleral Icterus Neck: NL Appearance and Movements; NL JVP Respiratory: - - bilateral wheezes and rhonchi Cardiovascular: NL Sounds; No Murmurs; No JVD, - - irreg irregular Abdominal: NL Sounds; No Tenderness; No Distention Extremities: No Edema Neurological: Alert and Oriented x 3 Result Diagrams: 12/19/18 05:19 12/20/18 06:57 Assess/Plan/Problems-Billing Assessment: 63 yo male with PMHx significant for COPD, atrial fibrillation (not on AC), CAD , alcohol use, tobacco use, and bipolar disorder who was sent to the ED from [facility] due to suicidal ideation and found to have hypotension. - Patient Problems (1) Alcohol withdrawal Current Visit: Yes Status: Acute Code(s): F10.239 - ALCOHOL DEPENDENCE WITH WITHDRAWAL, UNSPECIFIED SNOMED Code(s): 846178939 Comment: -patient has known hx of alcohol use disorder -[facility] protocol ordered; pt received ativan dose overnight -patient not diaphoretic or nauseous, but is tremulous (2) Hypotension Current Visit: Yes Status: Acute Comment: -hypotensive with MAP in the 50s upon arrival, received 3L IVF in ED -Resolved (3) COPD (chronic obstructive pulmonary disease) Current Visit: No Status: Acute Code(s): J44.9 - CHRONIC OBSTRUCTIVE PULMONARY DISEASE, UNSPECIFIED SNOMED Code(s): 01945776 Comment: copd exacerbation will change duoneb to xopenex prn to avoid a fib rvr episodes continue prednisone 40 mg stop mucinex continue dulera spiriva still coarse (4) V-tach Current Visit: Yes Status: Acute Code(s): I47.2 - VENTRICULAR TACHYCARDIA SNOMED Code(s): 80197403 Comment: -thought to have v tach yesterday but cardiology thinks a fib with abberancy -stable today -mantaining mg in range (5) Alcohol abuse Current Visit: No Status: Acute Code(s): F10.10 - ALCOHOL ABUSE, UNCOMPLICATED SNOMED Code(s): 03391195 Comment: [place] has not required ativan - discontinued reports 6 pack beer/day (6) Atrial fibrillation with rapid ventricular response Current Visit: No Status: Acute Code(s): I48.91 - UNSPECIFIED ATRIAL FIBRILLATION SNOMED Code(s): 875905655780031 Comment: -digoxin was subtherapeutic at time of admission (dig level 0.6) -patient not on AC due to frequent falls -patient reports and pharmacy confirms that he is prescribed digoxin every other day at home, med rec has been updated; continuing digoxin daily -home betablocker was previously held and home cardizem total dose decreased in setting of hypotension -hypotension has overall improved and it appears that perhaps beta nicci discontinuation has lead to rebound tachycardia -cardizem increased to home total dose; recd one dose IV cardizem 5mg yesterday -restarted metoprolol to 12.5mg (half of home dose) yesterday and increased to 25 mg -appreciate cardiology input -will continue dig metoprolol cardizem and evaluate (7) HTN (hypertension) Current Visit: No Status: Acute Code(s): I10 - ESSENTIAL (PRIMARY) HYPERTENSION SNOMED Code(s): 79431409 Comment: -hypotension resolved -will follow bp (8) Hyponatremia Current Visit: No Status: Acute Code(s): E87.1 - HYPO-OSMOLALITY AND HYPONATREMIA SNOMED Code(s): 29823430 Comment: -patient known to have chronic hyponatremia (baseline ~127) with hx of SIADH -at baseline (9) CAD (coronary artery disease) Current Visit: Yes Status: Acute Code(s): I25.10 - ATHSCL HEART DISEASE OF [place] CORONARY ARTERY W/O ANG PCTRS SNOMED Code(s): 99912868 Comment: -continue ASA, statin, metoprolol (10) Tobacco use Current Visit: Yes Status: Acute Code(s): Z72.0 - TOBACCO USE SNOMED Code( s): 545683531 Comment: -patient continues to smoke cigarettes daily in setting of COPD -discussed improtance of smoking cessation to prevent COPD exacerbation -started nicotine patch Status and Disposition: inpatient for medical management
[2018-12-21] MEDS ORDERED: LORazepam TAB(*) 1 MG PO PRN (18:01)
[2018-12-21] MEDS: Nicotine Patch Removal NOTE FOLLOW UP SCH (20:35)
[2018-12-21] MEDS: traMADol TAB* 50 MG PO PRN (23:01)
[2018-12-21] MEDS: hydrOXYzine HCL TAB* 25 MG PO PRN (23:02)
[2018-12-22] MEDS: Diltiazem TAB* 60 MG PO SCH ×3 (00:31→13:50)
[2018-12-22] MEDS: Levothyroxine TAB* 25 MCG TAB PO SCH (05:16)
[2018-12-22] MEDS: Heparin VIAL(*) 5000 UNITS/ML VIAL (FIVE THOUSAND) SUBCUT SCH ×2 (05:17→13:51)
[2018-12-22 06:47] LABS: ABS Lymphocytes 1.4 10^3/ul (1.0-4.8); ABS Monocytes 0.9 10^3/ul (0-0.8); ABS Neutrophils 7.5 10^3/ul (1.5-7.7); Eosinophil % 0.1 %; Hematocrit 40 % (42-52); Hemoglobin 13.4 g/dL (14.0-18.0); Lymphocyte % 14.5 %; Mean Corpuscular HGB Conc 34 g/dL (31-36); Mean Corpuscular Hemoglobin 31 pg (27-31); Mean Corpuscular Volume 90 fL (80-94); Mean Platelet Volume 7.8 fL (7.4-10.4); Nucleated Red Blood Cells % 0.1; Platelet Count 213 10^3/uL (150-450); Red Cell Distribution Width 17 % (10-15); White Blood Count 9.8 10^3/uL (3.5-10.8)
[2018-12-22 06:55] LABS: BUN/Creatinine Ratio 16.7 (8-20); Calcium 9.3 mg/dL (8.6-10.3); EGFR African American 103.1 (>60); EGFR Non-African American 85.2 (>60); Potassium 4.2 mmol/L (3.5-5.0)
[2018-12-22] MEDS: Tiotropium CAP.INH* CAP.INH/18 MCG (USE ORDER SET !) INH SCH (08:09)
[2018-12-22] MEDS: Mometasone/Formoter 200/5 MDI INH SCH ×2 (08:09→19:29)
[2018-12-22] MEDS: Nicotine PATCH 21 MG/24 HR* PATCH TRANSDERM SCH (10:57)
[2018-12-22] MEDS: predniSONE TAB* 20 MG PO SCH (10:57)
[2018-12-22] MEDS: Divalproex ER TAB(*) 500 MG PO SCH (10:57)
[2018-12-22] MEDS: Aspirin EC TAB* 81 MG TAB.EC PO SCH (10:58)
[2018-12-22] MEDS: Multivitamins/Minerals TAB PO SCH (10:58)
[2018-12-22] MEDS: Atorvastatin* 20 MG TAB PO SCH (10:58)
[2018-12-22] MEDS: Folic Acid TAB* 1 MG PO SCH (10:59)
[2018-12-22] MEDS: Sertraline* 100 MG TAB PO SCH (10:59)
[2018-12-22] MEDS: Metoprolol Succinate XL TAB* 25 MG PO SCH (11:00)
[2018-12-22] MEDS: Cilostazol TAB* 100 MG PO SCH (11:00)
[2018-12-22] MEDS: Tamsulosin CAP* 0.4 MG PO SCH (11:00)
[2018-12-22] MEDS: Thiamine TAB* 100 MG TAB PO SCH (11:01)
[2018-12-22] MEDS: Digoxin TAB* 0.125 MG PO SCH (11:01)
[2018-12-22] MEDS: levETIRAcetam LIQ* 500 MG/5 ML UDC PO SCH ×2 (11:04→13:50)
--- NOTE | 2018-12-22 15:56 | PN ---
Subjective Date of Service: 12/22/18 Interval History: SOB improving.Walking today Objective Active Medications: Acetaminophen (Tylenol Tab*) 650 mg PO Q4H PRN PRN Reason: FEVER/PAIN Last Admin: 12/19/18 21:37 Dose: 650 mg Aspirin (Aspirin Ec Tab*) 81 mg PO DAILY [facility] Last Admin: 12/22/18 10:58 Dose: 81 mg Atorvastatin Calcium (Lipitor*) 20 mg PO DAILY [facility] Last Admin: 12/22/18 10:58 Dose: 20 mg Cilostazol (Pletal Tab*) 50 mg PO BID [facility] Last Admin: 12/22/18 11:00 Dose: 50 mg Digoxin (Lanoxin Tab*) 0.125 mg PO DAILY [facility] Last Admin: 12/22/18 11:01 Dose: 0.125 mg Diltiazem HCl (Cardizem Tab*) 60 mg PO Q6HR [facility] Last Admin: 12/22/18 13:50 Dose: 60 mg Divalproex Sodium (Depakote Er Tab(*)) 1,500 mg PO QAM [facility] Last Admin: 12/22/18 10:57 Dose: 1,500 mg Folic Acid (Folvite Tab*) 1 mg PO DAILY [facility] Last Admin: 12/22/18 10:59 Dose: 1 mg Heparin Sodium (Porcine) (Heparin Vial(*)) 5,000 units SUBCUT Q8HR [facility] Last Admin: 12/22/18 13:51 Dose: 5,000 units Hydroxyzine HCl (Atarax Tab*) 25 mg PO Q6H PRN PRN Reason: ANXIETY Last Admin: 12/21/18 23:02 Dose: 25 mg Levalbuterol HCl (Xopenex 1.25 Mg/0.5 Ml Neb.[place]*) 1.25 mg INH Q6H PRN PRN Reason: SOB/WHEEZING Levetiracetam (Keppra Liq*) 750 mg PO TID [facility] Last Admin: 12/22/18 13:50 Dose: 750 mg Levothyroxine Sodium (Synthroid Tab*) 25 mcg PO DAILY@0600 [facility] Last Admin: 12/22/18 05:16 Dose: 25 mcg Lorazepam (Ativan Tab(*)) 0 - 6 mg PO .PER [facility] PROTOCOL [facility]; Protocol Last Admin: 12/21/18 00:00 Dose: 2 mg Lorazepam (Ativan Tab(*)) 2 mg PO Q4H PRN PRN Reason: Anxiety/agitation Last Admin: 12/21/18 20:31 Dose: 2 mg Metoprolol Succinate (Toprol Xl Tab*) 25 mg PO DAILY [facility] Last Admin: 12/22/18 11:00 Dose: 25 mg Mometasone Furoate/Formoterol Fumar (Dulera 200/5 Mdi*) 2 puff INH BID [facility] Last Admin: 12/22/18 08:09 Dose: 2 puff Multivitamins/Minerals (Theragran/Minerals Tab*) 1 tab PO DAILY [facility] Last Admin: 12/22/18 10:58 Dose: 1 tab Nicotine (Nicotine Patch 21 Mg/24 Hr*) 1 patch TRANSDERM DAILY [facility] Last Admin: 12/22/18 10:57 Dose: 1 patch Pharmacy Profile Note (Nicotine Patch Removal Note*) 1 note FOLLOW UP 2100 [facility] Last Admin: 12/21/18 20:35 Dose: 1 note Prednisone (Deltasone Tab*) 40 mg PO DAILY [facility] Last Admin: 12/22/18 10:57 Dose: 40 mg Sertraline HCl (Zoloft*) 200 mg PO DAILY [facility] Last Admin: 12/22/18 10:59 Dose: 200 mg Tamsulosin HCl (Flomax Cap*) 0.4 mg PO DAILY [facility] Last Admin: 12/22/18 11:00 Dose: 0.4 mg Thiamine HCl (Vitamin B-1 Tab*) 100 mg PO DAILY [facility] Last Admin: 12/22/18 11:01 Dose: 100 mg Tiotropium [place] (Spiriva Cap.Inh*) 1 cap INH DAILY [facility] Last Admin: 12/22/18 08:09 Dose: 1 cap Tramadol HCl (Ultram*) 50 mg PO Q6H PRN PRN Reason: PAIN Last Admin: 12/21/18 23:01 Dose: 50 mg Vital Signs - 8 hr 12/22/18 12/22/18 12/22/18 08:00 08:04 08:10 Temperature 97.7 F Pulse Rate 82 78 Respiratory 20 20 18 Rate Blood Pressure 130/78 (mmHg) O2 Sat by Pulse 94 94 Oximetry 12/22/18 12/22/18 11:01 11:32 Temperature 97.3 F Pulse Rate 78 91 Respiratory 18 Rate Blood Pressure 143/82 (mmHg) O2 Sat by Pulse 97 Oximetry Oxygen Devices in Use Now: None Eyes: No Scleral Icterus Neck: NL Appearance and Movements; NL JVP Respiratory: - - bilateral wheezes and rhonchi somewhat improved Cardiovascular: NL Sounds; No Murmurs; No JVD Abdominal: NL Sounds; No Tenderness; No Distention Extremities: No Edema Neurological: Alert and Oriented x 3 Result Diagrams: 12/22/18 06:22 12/22/18 06:22 Assess/Plan/Problems-Billing Assessment: 63 yo male with PMHx significant for COPD, atrial fibrillation (not on AC), CAD , alcohol use, tobacco use, and bipolar disorder who was sent to the ED from [facility] due to suicidal ideation and found to have hypotension. - Patient Problems (1) Alcohol withdrawal Current Visit: Yes Status: Acute Code(s): F10.239 - ALCOHOL DEPENDENCE WITH WITHDRAWAL, UNSPECIFIED SNOMED Code(s): 039742011 Comment: -patient has known hx of alcohol use disorder -[facility] protocol ordered -patient not diaphoretic or nauseous, but is tremulous -Ativan PRN,pt reports that he does not like the word withdrawal but agrees that he is anxious and agitated (2) Hypotension Current Visit: Yes Status: Acute Comment: -hypotensive with MAP in the 50s upon arrival, received 3L IVF in ED -Resolved (3) COPD (chronic obstructive pulmonary disease) Current Visit: No Status: Acute Code(s): J44.9 - CHRONIC OBSTRUCTIVE PULMONARY DISEASE, UNSPECIFIED SNOMED Code(s): 20103107 Comment: copd exacerbation changed duoneb to xopenex prn to avoid a fib rvr episodes continue prednisone 40 mg stopped mucinex continue dulera spiriva still coarse (4) V-tach Current Visit: Yes Status: Acute Code(s): I47.2 - VENTRICULAR TACHYCARDIA SNOMED Code(s): 78077256 Comment: -thought to have v tach on fri but cardiology thought a fib with abberancy -stable today -mantaining mg in range (5) Alcohol abuse Current Visit: No Status: Acute Code(s): F10.10 - ALCOHOL ABUSE, UNCOMPLICATED SNOMED Code(s): 53245150 Comment: reports 6 pack beer/day (6) Atrial fibrillation with rapid ventricular response Current Visit: No Status: Acute Code(s): I48.91 - UNSPECIFIED ATRIAL FIBRILLATION SNOMED Code(s): 309837002509300 Comment: -digoxin was subtherapeutic at time of admission (dig level 0.6) -patient not on AC due to frequent falls -patient reports and pharmacy confirms that he is prescribed digoxin every other day at home, med rec has been updated; continuing digoxin daily -home betablocker was previously held and home cardizem total dose decreased in setting of hypotension -hypotension has overall improved and it appears that perhaps beta incci discontinuation lead to rebound tachycardia -cardizem increased to home total dose; -restarted metoprolol to 12.5mg and increased to 25 mg -appreciate cardiology input -will continue dig metoprolol cardizem and evaluate (7) HTN (hypertension) Current Visit: No Status: Acute Code(s): I10 - ESSENTIAL (PRIMARY) HYPERTENSION SNOMED Code(s): 96067924 Comment: -hypotension resolved -will follow bp (8) Hyponatremia Current Visit: No Status: Acute Code(s): E87.1 - HYPO-OSMOLALITY AND HYPONATREMIA SNOMED Code(s): 93664142 Comment: -patient known to have chronic hyponatremia with hx of SIADH -at baseline (9) CAD (coronary artery disease) Current Visit: Yes Status: Acute Code(s): I25.10 - ATHSCL HEART DISEASE OF [place] CORONARY ARTERY W/O ANG PCTRS SNOMED Code(s): 82124287 Comment: -continue ASA, statin, metoprolol (10) Tobacco use Current Visit: Yes Status: Acute Code(s): Z72.0 - TOBACCO USE SNOMED Code( s): 026885134 Comment: -patient continues to smoke cigarettes daily in setting of COPD -discussed importance of smoking cessation to prevent COPD exacerbation -started nicotine patch Status and Disposition: inpatient for medical management. if lungs improved and walks with no oxygen, can be discharged tomorrow
[2018-12-22 17:32] VITALS: BP 161/82
--- NOTE | 2018-12-22 19:41 | DS ---
DISCHARGE SUMMARY: DATE OF ADMISSION: 12/18/18 DATE OF DISCHARGE: 12/22/18 PRIMARY DIAGNOSES: 1. Alcohol withdrawal. 2. Hypotension. 3. Chronic obstructive pulmonary disease exacerbation. 4. Atrial fibrillation with rapid ventricular response and aberrancy. 5. Suicidal thoughts and depression. SECONDARY DIAGNOSES: 1. Hyponatremia. 2. Coronary artery disease. 3. Tobacco use. 4. Alcohol abuse. 5. Depression. 6. Bipolar disorder. 7. Mitral valve repair. 8. Pacemaker insertion. 9. Syndrome of inappropriate antidiuretic hormone secretion. HOSPITAL COURSE: A 63-year-old male with recent admission approximately 4 weeks ago with COPD exacerbation and acutely decompensated heart failure that required ICU admission for hypoxic respiratory failure initially came into the hospital with suicidal ideation and depression; however, was noted to be lethargic. He was sent to the emergency room where he was noted to be hypotensive. Initial blood pressure was 65/44, repeat was 82/40. Please refer to the history and physical for full details. His alcohol level was noted to be 66. He received IV fluids for hypotension. Chest x-ray did not show pneumonia; however, the patient sounded rhonchorous and was short of breath and managed for COPD exacerbation. The patient was initially on one-to-one observation. The patient was seen by psychiatry, Shefali Cortez NP, and evaluated to have competency and noted to be future oriented and goal directed, and Psychiatry signed off and one-to-one observation was discontinued. The patient was medically managed for alcohol withdrawal on the [facility] protocol. Initially, his beta nicci had been held due to hypotension; however, the patient was noted to have tachycardia that was believed to be beta nicci withdrawal. There were some concerns that the patient was having V- tach on Sunday; however, appreciate cardiology, Dr. Medina's input. The patient was noted to have AFib with Liu phenomenon that is aberrancy. He recommended restarting the beta nicci and this was initially started at 12.5 and at this time, has been titrated to his home dose of 25 mg XL. Also, his Cardizem was continued. At the time of discharge, we will discharge him on his home dose Cardizem of 240 mg as the patient here has been receiving 60 mg q.4 hours. The patient is also on digoxin. On the home medication list, it appears that he is taking it every other day and his digoxin level was noted to be low. The patient has been on 0.125 mg every day and noted to be stable on the Cardizem, digoxin, and metoprolol here and we will continue this dose. The patient also has a pacemaker to protect him from episodes of bradycardia. The patient is at risk for multiple electrolyte abnormalities in the setting of alcohol use and ideally, his potassium should be in the 4 to 5 range and magnesium in the 2 to 2.7 range. The patient at the time of discharge was noted to have stable electrolytes with a potassium of 4.2 and magnesium, which was low, was replaced and magnesium noted to be 2.6. The patient's lungs still sound rhonchorous, but the patient is on room air and able to ambulate well with no dyspnea. The patient insists on going home today late on Sunday. Recommended that the patient stay overnight and leave in the morning; however, the patient reports that he wants to have a fresh start tomorrow and plans to get his life in order and go and see his psychologist and fill an intake form. The patient also appears to have complete mental capacity and is making logical sense during our conversation. The risks of going home tonight including arrhythmia that is not controlled, shortness of breath, and inability to control his thoughts and other problems with no housing case manager discussion or home care arrangement have been discussed with the patient; however, the patient reports that he is well aware of the situation and he would come back to the hospital if he has any problems with shortness of breath, palpitations, or if he feels poorly. After a long conversation with the patient, it appears that the patient has complete mental capacity and is not short of breath and the patient reports that he is as stable as he is going to be and wishes to go home. In light of this, we will discharge the patient with close followup. The patient is advised to follow up with his PCP in a few days, also to follow up with cardiology as an outpatient and psychiatry as an outpatient. We will also discharge the patient on Medrol Dosepak for his COPD exacerbation and we will continue his other routine home COPD medications. Vitals and labs noted to be stable at the time of discharge. LABORATORY DATA: Sodium 130; which is baseline for the patient, potassium 4.2, chloride 98, CO2 of 24, BUN 15, creatinine 0.9. WBC 9.8, hemoglobin 13.4, hematocrit 40, platelets noted to be 213. PHYSICAL EXAMINATION: HEENT: NC/AT. Heart: S1, S2 present. Irregularly irregular at the time of exam. Lungs noted to have some scattered wheezes and rhonchi. Abdomen: Soft, nontender. Extremities noted to have no edema. Neuro : Alert and oriented x3. MEDICATION LIST AT THE TIME OF DISCHARGE: 1. Thiamine 100 mg p.o. daily. 2. Tamsulosin 0.4 mg p.o. daily. 3. Folic acid 1 mg p.o. daily. 4. Spiriva 2 caps inhalation daily. 5. Sertraline 200 mg p.o. daily. 6. Lorazepam 2 mg p.o. b.i.d. p.r.n. 7. Atorvastatin 20 mg p.o. daily. 8. Levothyroxine 25 mcg p.o. daily. 9. Cardizem 240 mg p.o. daily. 10. Aspirin 81 mg p.o. daily. 11. Ellipta 1 puff inhalation daily. 12. Metoprolol 25 mg p.o. at bedtime. 13. Cilostazol 100 mg p.o. b.i.d. 14. Keppra 750 mg p.o. t.i.d. 15. Breo Ellipta 1 puff inhalation daily. 16. Depakote 1500 mg q.a.m. 17. Medrol Dosepak take as per instructions. 18. Multivitamin. 19. Digoxin 0.125 mg p.o. daily. DISCHARGE INSTRUCTIONS GIVEN TO THE PATIENT: As discussed above. CONDITION: Stable. DISPOSITION: Home. TIME SPENT: Total time spent on discharge is equal to 60 minutes. [id number]/[facility] #: [id number] [facility] HOSPITALMaria C
== END 2018-12-22 19:54 | disposition home or self-care (01) | DRG 315 ==
LOC: ED 14:31 → MEDTELE 18:35 → OBSVTOIN 12-20 14:00
PROVIDERS: ADMIT Internal Medicine; ATTEND Internal Medicine
DX: I95.9 Hypotension, unspecified (principal); F10.239 Alcohol dependence with withdrawal, unspecified; J44.1 Chronic obstructive pulmonary disease with (acute) exacerbation; R45.851 Suicidal ideations; E87.1 Hypo-osmolality and hyponatremia; I47.2 Ventricular tachycardia; I73.9 Peripheral vascular disease, unspecified; J44.9 Chronic obstructive pulmonary disease, unspecified; G62.9 Polyneuropathy, unspecified; F17.210 Nicotine dependence, cigarettes, uncomplicated; Y90.3 Blood alcohol level of 60-79 mg/100 ml; R40.2362 Coma scale, best motor response, obeys commands, at arrival to emergency department; R40.2142 Coma scale, eyes open, spontaneous, at arrival to emergency department; R40.2252 Coma scale, best verbal response, oriented, at arrival to emergency department; G40.909 Epilepsy, unspecified, not intractable, without status epilepticus; I11.0 Hypertensive heart disease with heart failure; I48.2 Chronic atrial fibrillation; E78.5 Hyperlipidemia, unspecified; J32.4 Chronic pansinusitis; F41.0 Panic disorder [episodic paroxysmal anxiety]; I45.10 Unspecified right bundle-branch block; F31.9 Bipolar disorder, unspecified; F60.89 Other specific personality disorders; E83.42 Hypomagnesemia; F43.10 Post-traumatic stress disorder, unspecified; Z91.5 Personal history of self-harm; Z95.1 Presence of aortocoronary bypass graft; Z95.0 Presence of cardiac pacemaker; Z95.2 Presence of prosthetic heart valve; Z86.11 Personal history of tuberculosis; Z81.8 Family history of other mental and behavioral disorders; Z81.1 Family history of alcohol abuse and dependence; Z87.820 Personal history of traumatic brain injury; Z98.42 Cataract extraction status, left eye; Z98.41 Cataract extraction status, right eye; Z79.82 Long term (current) use of aspirin
CPT/HCPCS: 36415; 70450; 71046; 80048; 80053; 80162; 80307; 80320; 80329; 81003; 82140; 83735; 83880; 84443; 85025; 93005; 94640; 99285; 99406; A9270-GY; G0378; G0480; J0696; J1644; J1940; J3411; J3475; J7512

== ENCOUNTER 2019-01-19 19:09 | Inpatient (IN) | payer MEDICARE, MEDICAID ==
--- NOTE | 2019-01-19 20:36 | ED ---
Lower Extremity - HPI Summary HPI Summary: This patient is a 63 year old M [facility] to ED with a chief complaint of fall and RLE injury at the ankle at 1800 today. Patient was walking on the sidewalk and states his leg gave out. Patient was drinking alcohol and his last drink was at noon today. 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 He reports taking his regular medications. EMS provided a splint. The pain is described as aching and sharp. The patient rates the pain 8/ 10 in severity. Symptoms aggravated by nothing. Symptoms alleviated by nothing. Patient reports swollen right ankle. Patient denies fever. - History of Current Complaint Chief Complaint: EDFall Stated Complaint: ANKLE DISLOCATION PER EMS Hx Obtained From: Patient Mechanism Of Injury: Fall From A Standing Position Onset of Pain: Post Accident Onset/Duration: Still Present Severity Initially: Severe Severity Currently: Severe Pain Intensity: 8 Pain Scale Used: 0-10 Numeric Timing: Constant, Lasting Hours - Since 1800 today Location: Is Discrete @ - R ankle Character Of Pain: Sharp, Aching Associated Signs And Symptoms: Positive: Swelling - Right ankle. Negative: Fever Aggravating Factor(s): Nothing Alleviating Factor(s): Nothing - Allergies/Home Medications Allergies/Adverse Reactions: Allergies Allergy/AdvReac Type Severity Reaction Status Date / Time No Known Allergies Allergy Verified 06/18/18 14:24 PMH/Surg Hx/FS Hx/Imm Hx Endocrine/Hematology History: Reports: Hx Anticoagulant Therapy Denies: Hx Diabetes, Hx Thyroid Disease Cardiovascular History: Reports: Hx Auto Implanted Cardiovert Defib, Hx Hypertension, Hx Pacemaker/ICD - [employer] -GUIANDANT - NOT MR SAFE/ CONDITIONAL, Hx Peripheral Vascular Disease, Hx Valvular Heart Disease - Recent valve replacement surgery, Other Cardiovascular Problems/Disorders - Hx Atrial Fibrillation and was treatment with Warfarin which has been d/c'd Respiratory History: Reports: Hx Chronic Bronchitis, Hx Chronic Obstructive Pulmonary Disease (COPD), Other Respiratory Problems/Disorders - poss aspiration Denies: Hx Asthma History: Reports: Other Problems/Disorders - History of SIADH Denies: Hx Renal Disease Musculoskeletal History: Reports: Other Musculoskeletal History - peripheral neuropathy Denies: Hx Arthritis, Hx Osteoporosis Sensory History: Reports: Hx Cataracts, Hx Contacts or Glasses Denies: Hx Hearing Aid Opthamlomology History: Reports: Hx Cataracts, Hx Contacts or Glasses Neurological History: Reports: Hx Seizures, Other Neuro Impairments/Disorders - PERIPHERAL NEUROPATHY Denies: Hx Dementia Psychiatric History: Reports: Hx Anxiety, Hx Depression, Hx Panic Disorder, Hx Post Traumatic Stress Disorder, Hx Inpatient Treatment, Hx Community Mental Health Tx, Hx Bipolar Disorder, Hx Suicide Attempt, Hx of Violent Episodes Against Others, Hx Substance Abuse - ETOH, Other Psychiatric Issues/Disorders - has had ECT treatment Denies: Hx Attention Deficit Hyperactivity Disorder, Hx Eating Disorder, Hx Schizophrenia - Surgical History Surgery Procedure, Year, and Place: CABG, PACEMAKER Hx Anesthesia Reactions: No - Immunization History Date of Tetanus Vaccine: PT STATES UNSURE Date of Influenza Vaccine: NONE Infectious Disease History: No Infectious Disease History: Reports: Hx Tuberculosis - hx of inactive TB Denies: Hx Clostridium Difficile, Hx Hepatitis, Hx Human Immunodeficiency Virus (HIV), Hx of Known/Suspected MRSA, Hx Shingles, Hx Known/Suspected VRE, Hx Known/Suspected VRSA, History Other Infectious Disease, Traveled Outside the [place] in Last 30 Days - Family History Known Family History: Positive: Other - Mother -- depression, Father -- EtOH abuse - Social History Alcohol Use: Daily Alcohol Amount: 6 beers and 1 pint Hx Substance Use: Yes Substance Use Type: Reports: Marijuana Substance Use Comment - Amount & Last Used: Last used Sunday Hx Tobacco Use: Yes Smoking Status (MU): Heavy Every Day Tobacco Smoker Type: Cigarettes Amount Used/How Often: 1/2 PPD Length of Time of Smoking/Using Tobacco: 40 YRS Have You Smoked in the Last Year: Yes Review of Systems Negative: Fever Musculoskeletal: Other - RLE ankle injury All Other Systems Reviewed And Are Negative: Yes Physical Exam - Summary Physical Exam Summary: VITAL SIGNS: Reviewed. GENERAL: Patient is a well-developed and nourished male who is lying comfortable in the stretcher. Patient is not in any acute respiratory distress. HEAD AND FACE: No signs of trauma. No ecchymosis, hematomas or skull depressions. No sinus tenderness. EYES: PERRLA, EOMI x 2, No injected conjunctiva, no nystagmus. EARS: Hearing grossly intact. Ear canals and tympanic membranes are within normal limits. MOUTH: Oropharynx within normal limits. NECK: Supple, trachea is midline, no adenopathy, no JVD, no carotid bruit, no c- spine tenderness, neck with full ROM CHEST: Symmetric, no tenderness at palpation LUNGS: Clear to auscultation bilaterally. No wheezing or crackles. CVS: Regular rate and rhythm, S1 and S2 present, no murmurs or gallops appreciated. ABDOMEN: Soft, non-tender. No signs of distention. No rebound no guarding, and no masses palpated. Bowel sounds are normal. EXTREMITIES: swelling and tenderness in right ankle, decreased ROM in right foot due to pain, decreased sensation bilaterally in both foot which is old, right foot is warm and has good capillary refill NEURO: Alert and oriented x 3. No acute neurological deficits. Speech is normal and follows commands. SKIN: Dry and warm Triage Information Reviewed: Yes Vital Signs On Initial Exam: Initial Vitals Temp Pulse Resp BP Pulse Ox 98.2 F 70 18 93/61 97 01/19/19 19:14 01/19/19 19:14 01/19/19 19:14 01/19/19 19:14 01/19/19 19:14 Vital Signs Reviewed: Yes Procedures - Splinting Right Location: Right ankle Hand-Made Type: orthoglass Splint: Right ankle Post-Proc Neuro Vasc Exam: unchanged from pre-exam - Joint Reduction Right Joint Reduction Site: ankle (R) Conscious Sedation: Yes Reduction Attempts: 1 Post Joint Reduction Film: joint reduced Diagnostics - Vital Signs Vital Signs Temp Pulse Resp BP Pulse Ox 01/19/19 19:14 98.2 F 70 18 93/61 97 - Laboratory Result Diagrams: 01/19/19 20:55 01/19/19 20:55 Lab Statement: Any lab studies that have been ordered have been reviewed, and results considered in the medical decision making process. - Radiology R ankle XR Radiology Interpretation Completed By: ED Physician Summary of Radiographic Findings: Bimalleolar fracture with lateral displacement , pending official radiology report. R foot XR Radiology Interpretation Completed By: ED Physician Summary of Radiographic Findings: No foot fracture, but ankle findings as above , pending official radiology report. CXR Radiology Interpretation Completed By: ED Physician Summary of Radiographic Findings: Bilateral venous congestion, pending official radiology report. R ankle XR 2 Radiology Interpretation Completed By: ED Physician Summary of Radiographic Findings: Post-reduction R ankle XR shows good alignment , pending official radiology report. - EKG 2056 Cardiac Rate: NL - 75 BPM EKG Rhythm: Atrial Fibrillation ST Segment: Non-Specific Ectopy: PVCs Summary of EKG Findings: Atrial fibrillation at 75 BPM with PVCs and nonspecific ST changes. Re-Evaluation - Re-Evaluation First Eval Re-Evaluation Time: 20:54 Comment: Discussed XR results with patient. Patient agrees to have joint reduction procedure and to be admitted to [facility] for [place]. Lower Extremity Course/Dx - Course Course Of Treatment: This patient is a 63 year old M [facility] to ED with a chief complaint of fall and RLE injury at the ankle at 1800 today. In the ED course, patient received Vitamin B1, Folvite, Reglan, Versed, fentanyl, and fluids. R ankle XR revealed bimalleolar fracture with lateral displacement, pending official radiology report. R foot XR revealed no foot fracture, but ankle findings as above, pending official radiology report. Blood work obtained. EKG at 2056 revealed atrial fibrillation at 75 BPM with PVCs and nonspecific ST changes. CXR revealed bilateral venous congestion, pending official radiology report. I performed a moderate sedation and joint reduction procedure on the patient. Informed consent for both procedures was obtained. The protocol for moderate sedation was followed. Patient received 100mg of fentanyl and 5mg of versed IV. Moderate sedation was accompished for procedure. No complications occurred, no reversal agent used. Time spent 15 minutes. For the right ankle joint reduction, counter traction of the right angle was used to successfully reduce the ankle. Posterior splint was applied. NV exam was intact pre- and post-reduction. Post-reduction R ankle XR shows good alignment , pending official radiology report. Discussed patient case with Dr. Hernandez who recommended the patient be NPO after midnight and states he should be admitted for surgery tomorrow by Dr. Moe. Discussed patient case with Dr. Gamboa, hospitalist, who accepted the patient for admission. Patient will be admitted to [facility] with dx of right ankle fracture. Pt understands and agrees with this plan. - Diagnoses Provider Diagnoses: Ankle fracture, right - Physician Notifications Discussed Care Of Patient With: Edwin Hernandez Time Discussed With Above Provider: 22:00 Instructed by Provider To: Other - Discussed patient case with Dr. Hernandez who recommended the patient be NPO after midnight and states he should be admitted for surgery tomorrow by Dr. Moe. At 2226 discussed patient case with Dr. Gamboa, hospitalist, who accepted the patient for admission. Discharge - Sign-Out/Discharge Documenting (check all that apply): Patient Departure - Admit Patient Received Moderate/Deep Sedation with Procedure: Yes - Discharge Plan Condition: Fair Disposition: ADMITTED TO [facility] Referrals: Louie Lewis MD [Primary Care Provider] - - Attestation Statements Document Initiated by Scribe: Yes Documenting Scribe: John Dias Provider For Whom Scribe is Documenting (Include Credential): Tesha Solomon MD Scribe Attestation: I, John Dias, scribed for Tesha Solomon MD on 01/19/19 at 2303. Status of Scribe Document: Ready Procedure Note: Sedation - Sedation/Analgesia Procedure: Moderate Sedation Informed Consent Obtained: Yes Plan for Sedation: Moderate Sedation Previous Problem with Sedation: No - Post Procedure Eval Total Sedation/Analgesia Time: Other - 15 minutes - Comments Additional Comments: I performed a moderate sedation procedure on the patient. Informed consent was obtained. The protocol for moderate sedation was followed. Patient received 100mg of fentanyl and 5mg of versed IV. Moderate sedation was accompished for procedure. No complications occurred, no reversal agent used. Time spent 15 minutes.
[2019-01-19] MEDS ORDERED: Metoclopramide IV* 5 MG/ML 2 ML VIAL IV SLOW PU ONE (20:40)
[2019-01-19] MEDS ORDERED: Morphine 10 MG/ML VIAL (1 ml) IV ONE (20:40)
[2019-01-19] MEDS ORDERED: Thiamine IV* 100 MG, Folic Acid IV* 1 MG, Multiple Vitamin IV ADULT* 10 ML in NS 0.9% 1... IV ONE (20:41)
[2019-01-19] MEDS ORDERED: Midazolam* 1 MG/ML 5 ML VIAL (5 MG) IV SLOW PU ONE (21:03)
[2019-01-19] MEDS ORDERED: fentaNYL* 50 MCG/ML 2 ML VIAL (100 MCG VIAL) IV SLOW PU ONE (21:03)
[2019-01-19] MEDS ORDERED: Midazolam* 1 MG/ML 5 ML VIAL (5 MG) ONE (21:04)
[2019-01-19] MEDS ORDERED: fentaNYL* 50 MCG/ML 2 ML VIAL (100 MCG VIAL) ONE (21:04)
[2019-01-19 21:05] LABS: ABS Eosinophils 0.1 10^3/ul (0-0.6); ABS Monocytes 0.5 10^3/ul (0-0.8); ABS Neutrophils 2.3 10^3/ul (1.5-7.7); Eosinophil % 3.1 %; Hematocrit 35 % (42-52); Hemoglobin 12.2 g/dL (14.0-18.0); Lymphocyte % 25.2 %; Mean Corpuscular HGB Conc 35 g/dL (31-36); Mean Corpuscular Hemoglobin 33 pg (27-31); Mean Corpuscular Volume 92 fL (80-94); Mean Platelet Volume 7.2 fL (7.4-10.4); Nucleated Red Blood Cells % 0.1; Platelet Count 161 10^3/uL (150-450); Red Blood Count 3.77 10^6 /uL (4.18-5.48); Red Cell Distribution Width 17 % (10-15)
[2019-01-19 21:19] LABS: Activated Partial Thrombo Time 31.5 seconds (26.0-38.0); INR 1.08 (0.82-1.09)
[2019-01-19 21:21] LABS: ALT 11 U/L (7-52); AST 14 U/L (13-39); Albumin 3.4 g/dL (3.2-5.2); Albumin/Globulin Ratio 1.2 (1-3); Alkaline Phosphatase 65 U/L (34-104); Anion Gap 6 mmol/L (2-11); BUN/Creatinine Ratio 10.3 (8-20); Blood Urea Nitrogen 13 mg/dL (6-24); CO2 Carbon Dioxide 27 mmol/L (22-32); Calcium 8.9 mg/dL (8.6-10.3); Chloride 96 mmol/L (101-111); EGFR African American 69.9 (>60); EGFR Non-African American 57.8 (>60); Globulin 2.8 g/dL (2-4); Glucose 104 mg/dL (70-100); Potassium 4.1 mmol/L (3.5-5.0); Sodium 129 mmol/L (135-145); Total Protein 6.2 g/dL (6.4-8.9)
[2019-01-19 21:56] LABS: Alcohol < 10 mg/dL (<10); Digoxin 1.3 ng/ml (0.8-2.0)
[2019-01-19] MEDS ORDERED: Acetaminophen TAB* 325 MG PO PRN (23:41)
[2019-01-19] MEDS ORDERED: LORazepam INJ* 2 MG/ML 1 ML VIAL IV PUSH SCH (23:45)
[2019-01-19] MEDS ORDERED: Lorazepam PYXIS KEY PRN (23:50)
[2019-01-20] MEDS ORDERED: Albuterol 2.5 MG/3 ML NEB.SOL* (0.083%) INH PRN (00:42)
[2019-01-20] MEDS: Enoxaparin(*) 40 MG/0.4 ML SYR SUBCUT SCH (01:51)
--- NOTE | 2019-01-20 03:00 | HP ---
CC: Dr. Lewis HISTORY AND PHYSICAL: DATE OF ADMISSION: 01/19/19 PRIMARY CARE PHYSICIAN: Dr. Lewis. HEALTHCARE PROXY: Denies. CODE STATUS: Full. CHIEF COMPLAINT: Fall on to right ankle. HISTORY OF PRESENT ILLNESS: Mr. Cortez is a 63-year-old man with alcohol use disorder, COPD, seizure disorder, bipolar disorder, possible HFpEF, HTN, CAD, atrial fibrillation, and mitral regurgitation, who is presenting to the emergency room with a right lower extremity injury. Of note, most history obtained from chart as the patient was recently sedated for procedure and is unable to fully participate in interview. Per chart, the patient was walking on the sidewalk on the evening of admission and states that his legs "gave out. " The patient had been drinking alcohol on the day of presentation reporting his last drink was at noon. 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 The patient denies taking his home medications over the last couple of days to this interviewer. In the emergency room, the patient was noted to have a bimalleolar fracture on right ankle x-ray with lateral displacement. He was given morphine with Versed and fentanyl for moderate sedation for joint reduction procedure on the right foot, performed by emergency medicine physician. There were no complications of the procedure and his right ankle was splinted with repeat ankle x-ray showing good alignment. The case was discussed with Dr. Hernandez who recommended that the patient be admitted to Medicine for optimization for possible ankle surgery by Dr. Moe. Of note, the patient had an admission from last month from 12/18/18 to 12/22/18 for alcohol withdrawal, COPD exacerbation, AFib with RVR, but initially presented with suicidal thoughts and depression. The patient decided to leave the hospital before completing therapy for these medical problems. Also, of note, approximately 4 weeks prior to that admission, the patient was admitted for acutely decompensated heart failure requiring an ICU admission for hypoxic respiratory failure. PAST MEDICAL HISTORY: 1. Alcohol use disorder. 2. COPD. 3. Possible heart failure, preserved ejection fraction. 4. Bipolar disorder. 5. Seizure disorder. 6. Hypertension. 7. Coronary artery disease. 8. Atrial fibrillation, not on anticoagulation. 9. Peripheral vascular disease. 10. Bioprosthetic mitral valve replacement. HOME MEDICATIONS: [Of note, the patient reports not taking these medications recently, but his last discharge medications include the following.] 1. Spiriva 1 inhalation daily. 2. Breo Ellipta 1 puff daily. 3. Levothyroxine 25 mcg daily. 4. Sertraline 200 mg daily. 5. Keppra 750 mg 3 times a day. 6. Depakote 1500 mg every morning. 7. Digoxin 0.125 mg daily. 8. Metoprolol succinate 25 mg nightly. 9. Cardizem 240 mg daily. 10. Aspirin 81 mg daily. 11. Atorvastatin 20 mg daily. 12. Folic acid 1 mg daily. 13. Thiamine 100 mg daily. ALLERGIES: No known drug allergies. FAMILY HISTORY: The patient previously denied family history. SOCIAL HISTORY: Per chart, the patient is an everyday smoker and everyday drinker of alcohol. Denies having healthcare proxy. REVIEW OF SYSTEMS: The patient is unable to participate in the full 10-point review of systems, but does deny pain, anxiety, chest pain, shortness of breath or abdominal pain. PHYSICAL EXAMINATION GENERAL: He is a sleeping man in no acute distress, protecting his airway. Alert to loud voice or clap. VITAL SIGNS: Afebrile, blood pressure 106/76, heart rate 70s, respiratory rate 16, oxygen saturation 100% on room air. HEENT: Atraumatic, normocephalic, no ecchymosis. Eyes with PERRL. Mouth, moist mucous membranes. OP clear. No tongue fasciculations. NECK: No JVD. Neck supple. LUNGS: Clear to auscultation anteriorly. HEART: Irregularly irregular. No murmurs, gallops, or rubs. Noted well- healed midline sternal scar. ABDOMEN: Soft, nontender, nondistended. No fluid wave or hepatomegaly. EXTREMITIES: Warm and well perfused. Right ankle with a newly placed splint. Left ankle without edema. Hands without tremor. DIAGNOSTIC STUDIES/LAB DATA: Labs reviewed and significant for hemoglobin 12.2 with MCV 92 at baseline. Sodium 129, which is the patient's baseline. Creatinine 1.26, slightly above baseline. Serum alcohol less than 10. Right ankle x-ray with bimalleolar fracture and dislocation as noted above. EKG with atrial fibrillation rate in the 70s with right bundle-branch block, unchanged from prior. ASSESSMENT AND PLAN: Mr. Cortez is a 63-year-old man with alcohol use disorder; COPD, HFpEF, HTN, CAD; seizure disorder; bipolar disorder, and mitral regurgitation s/p bioprosthetic mitral valve, who is presenting after alcohol use complicated by fall and right ankle fracture. 1. Right ankle fracture and displacement, status post reduction and splinted. Ortho has been consulted and recommended admission for medical optimization prior to surgery. Can give low dose opioids for [id number] pain and Tylenol for mild pain. Initiate bowel regimen, prn. 2. Alcohol withdrawal. The patient reports drinking on the morning of admission, but now has serum alcohol less than 10. He was actively withdrawing in the emergency room before receiving procedural sedation. We will monitor on [facility] protocol before clearing for the OR. Thiamine and folate. 3. Atrial fibrillation. Continue home digoxin, diltiazem, and metoprolol. Was not on anticoagulation previously, and will not start now given possibility of procedure. 4. Hyponatremia. Chronic, noted previously to be from SIADH. Unlikely to have new cirrhosis given normal platelets and INR. Continue to monitor. 5. Heart failure, preserved ejection fraction, with recent admission for volume overload. The patient was not discharged on a diuretic. Currently by exam, he is euvolemic. Will continue to monitor volume status and start furosemide if needed. 6. Chronic obstructive pulmonary disease. Continue home triple therapy with Breo Ellipta and Spiriva. Can have albuterol as needed for shortness of breath. 7. Seizure disorder. Continue the patient's home Keppra and Depakote. 8. Coronary artery disease. Continue the patient's home aspirin and statin. 9. Bipolar disorder: cont home sertraline and divalproex. 10. Hypothyroid. Cont home levothyroxine 25mcg. Check TSH. 11. BPH. Cont home tamsulosin. 12. DVT prophylaxis: Initiate Lovenox subcu daily. 13. Code status: Full. TIME SPENT: Approximately 60 minutes was spent on the admission of this patient , more than half of which was spent at bedside for interview and exam. [id number]/[facility] #: [id number] YARIEL
[2019-01-20] MEDS ORDERED: Polyethylene Glycol 3350* 17 GM PACKET PO PRN (03:50)
[2019-01-20] MEDS ORDERED: Senna TAB PO PRN (03:50)
[2019-01-20] MEDS: oxyCODONE TAB* 5 MG TAB PO PRN ×2 (04:55→22:27)
[2019-01-20] MEDS: Levothyroxine TAB* 25 MCG TAB PO SCH (04:55)
[2019-01-20] MEDS: Acetaminophen TAB* 325 MG PO PRN (05:01)
[2019-01-20 06:04] LABS: Hematocrit 35 % (42-52); Hemoglobin 12.2 g/dL (14.0-18.0); Mean Corpuscular HGB Conc 35 g/dL (31-36); Mean Corpuscular Hemoglobin 32 pg (27-31); Mean Corpuscular Volume 92 fL (80-94); Mean Platelet Volume 8.1 fL (7.4-10.4); Platelet Count 152 10^3/uL (150-450); Red Blood Count 3.82 10^6 /uL (4.18-5.48); Red Cell Distribution Width 16 % (10-15); White Blood Count 5.1 10^3/uL (3.5-10.8)
[2019-01-20 06:31] LABS: BUN/Creatinine Ratio 9.6 (8-20); Calcium 8.5 mg/dL (8.6-10.3); EGFR African American 98.1 (>60); EGFR Non-African American 81.1 (>60); Magnesium 1.9 mg/dL (1.9-2.7); Potassium 4.2 mmol/L (3.5-5.0)
[2019-01-20 07:07] LABS: TSH (Thyroid Stimulating Horm) 2.95 mcIU/mL (0.34-5.60)
[2019-01-20] MEDS: Fluticasone/Vilanterol MDI(NF) 100/25 MDI INH SCH (07:47)
[2019-01-20] MEDS: Tiotropium CAP.INH* CAP.INH/18 MCG (USE ORDER SET !) INH SCH (07:47)
--- NOTE | 2019-01-20 08:58 | CONS ---
CONSULTATION: DATE OF CONSULT: 01/20/19 HISTORY OF PRESENT ILLNESS: Cristhian is a 63-year-old man who has had recurrent problems with alcohol abuse, recently admitted for alcohol withdrawal a month ago, who recently slipped and fell on the sidewalk with a right bimalleolar ankle fracture. He was admitted for the fracture, but also has significant medical issues including AFib, COPD, and significant depression. He is on the telemetry unit currently. He is having his right ankle splinted. Complains of moderate pain in the right ankle, not severe. He is on the medical service pending medical clearance for his right ankle fracture. MEDICATIONS: Are well outlined in the chart. SOCIAL HISTORY: Also reviewed in the chart. REVIEW OF SYSTEMS: Also reviewed in the chart. PHYSICAL EXAM: Physical examination shows him to be somewhat somnolent, easily arousable, conversant, complaining of moderate pain in the right ankle. The ankle itself is in a splint, warm toes, sensate toes splinted in a neutral position. DIAGNOSTIC STUDIES/LAB DATA: His radiographs show a displaced bimalleolar ankle fracture with a relatively long spiral fibula, displaced about a centimeter through the mortise. IMPRESSION: The patient with a displaced unstable bimalleolar ankle fracture, will need internal fixation pending medical clearance. We will have him n.p.o. this morning pending further discussion with Medicine. [id number]/[facility] #: [id number] YARIEL
[2019-01-20] MEDS ORDERED: levETIRAcetam TAB* 500 MG PO SCH (09:00)
[2019-01-20] MEDS ORDERED: Spiriva Inhaler DEVICE* 1 EACH DEVICE INH ONE (09:00)
[2019-01-20] MEDS: Atorvastatin* 20 MG TAB PO SCH (09:32)
[2019-01-20] MEDS: Digoxin TAB* 0.125 MG PO SCH (09:32)
[2019-01-20] MEDS: Aspirin EC TAB* 81 MG TAB.EC PO SCH (09:32)
[2019-01-20] MEDS: Diltiazem CD CAP* 240 MG PO SCH (09:32)
[2019-01-20] MEDS: Divalproex ER TAB(*) 500 MG PO SCH (09:33)
[2019-01-20] MEDS: Folic Acid TAB* 1 MG PO SCH (09:34)
[2019-01-20] MEDS: Sertraline* 100 MG TAB PO SCH (09:35)
[2019-01-20] MEDS: Multivitamins/Minerals TAB PO SCH (09:35)
[2019-01-20] MEDS: Thiamine TAB* 100 MG TAB PO SCH (09:36)
[2019-01-20] MEDS: Tamsulosin CAP* 0.4 MG PO SCH (09:36)
[2019-01-20] MEDS ORDERED: ceFAZolin 2 GM in NS PREMIX(*) 2 GM/100 ML BAG IVPB ONE (12:43)
[2019-01-20] MEDS ORDERED: Bupivacaine 0.5%* 50 ML VIAL ONE (13:04)
[2019-01-20] MEDS ORDERED: Propofol* 10 MG/ML 20 ML BTL ONE (13:04)
[2019-01-20] MEDS ORDERED: Lidocaine 2% PF * 5 ML VIAL ONE (13:04)
[2019-01-20] MEDS ORDERED: Dexamethasone IV* 4 MG/ML 1 ML (4 MG) ONE (13:05)
[2019-01-20] MEDS ORDERED: Ondansetron INJ* 2 MG/ML VIAL ONE (13:05)
[2019-01-20] MEDS ORDERED: Famotidine IV* 10 MG/ML 2 ML (20 mg) ONE (13:08)
[2019-01-20] MEDS ORDERED: Phenylephrine 40 MCG/ML SYRINGE ONE (13:27)
[2019-01-20] MEDS ORDERED: fentaNYL* 50 MCG/ML 2 ML VIAL (100 MCG VIAL) ONE (14:09)
[2019-01-20] MEDS ORDERED: fentaNYL* 50 MCG/ML 2 ML VIAL (100 MCG VIAL) IV PRN (14:40)
[2019-01-20] MEDS ORDERED: Naloxone* 0.4 MG/ML 1 ML VIAL IV PRN (14:40)
--- NOTE | 2019-01-20 17:50 | PN ---
Hospitalist Progress Note Date of Service: 01/20/19 Patient seen and examined. Appears sleepy, but not scoring on WAM. VS stable, patient complaining of pain to ankle/fracture site, discussed that surgery is needed and imminent. He is agreeable. Denies chest pain, no SOB, no fevers or chills, no further complaints. Remains cleared for surgical procedure today, discussed with Dr. Moe.
--- NOTE | 2019-01-20 18:55 | OP ---
DATE OF OPERATION: 01/20/19 - ROOM #349 DATE OF : 55 ATTENDING SURGEON: William Moe MD. NUMERICAL CONTROL NESTING OPERATOR: Faiza William PA-C. PRE-OP DIAGNOSIS: Bimalleolar ankle fracture, right side. POST-OP DIAGNOSIS: OPERATIVE PROCEDURE: Open reduction internal fixation right ankle. DESCRIPTION OF PROCEDURE: The patient was taken to the operating room where a longitudinal incision was made over the distal fibula. We exposed the lateral and posterior aspect of the fibula. There was a long spiral fragment and a small posterior butterfly. The large spiral fragment was reduced with a crab claw clamp and then we fashioned a 10-hole recon plate to fit the back of the fibula. This was fixed with posterior to anterior cortical screws with a couple of screws across the fracture fragment. X-rays intraoperatively showed the fibula was anatomically reduced. We then made a 4-cm longitudinal incision over the medial malleolus which was pinned and held with a point of reduction clamp and then paired 45-mm cancellous screws were placed, partially threaded, cannulated over washers. Good compression and alignment was obtained and verified with the x-ray. We then irrigated both medial and lateral wounds, closed it with Monocryl and lilly for the skin, and a compression dressing plaster splint applied. [id number]/[facility] #: [id number] YARIEL
[2019-01-20] MEDS: Metoprolol Succinate XL TAB* 25 MG PO SCH (21:24)
[2019-01-20] MEDS: levETIRAcetam TAB* 500 MG PO SCH (21:24)
[2019-01-20] MEDS: ceFAZolin 1 GM* X 3 DOSES POST-OP Q8H (AddVan) IVPB SCH ×2 (21:26)
[2019-01-21] MEDS: Acetaminophen TAB* 325 MG PO PRN ×2 (00:37→08:48)
[2019-01-21] MEDS: Enoxaparin(*) 40 MG/0.4 ML SYR SUBCUT SCH ×2 (00:38→23:37)
[2019-01-21] MEDS: Cyclobenzaprine TAB* 10 MG PO PRN ×2 (00:57→08:51)
[2019-01-21] MEDS: ceFAZolin 1 GM* X 3 DOSES POST-OP Q8H (AddVan) IVPB SCH ×4 (05:03→13:49)
[2019-01-21] MEDS: Levothyroxine TAB* 25 MCG TAB PO SCH (05:04)
[2019-01-21] MEDS: oxyCODONE TAB* 5 MG TAB PO PRN ×3 (05:59→23:34)
[2019-01-21 07:57] LABS: ABS Lymphocytes 0.4 10^3/ul (1.0-4.8); ABS Monocytes 0.9 10^3/ul (0-0.8); ABS Neutrophils 5.6 10^3/ul (1.5-7.7); Hematocrit 36 % (42-52); Hemoglobin 12.7 g/dL (14.0-18.0); Lymphocyte % 5.9 %; Mean Corpuscular HGB Conc 35 g/dL (31-36); Mean Corpuscular Hemoglobin 33 pg (27-31); Mean Corpuscular Volume 93 fL (80-94); Mean Platelet Volume 7.8 fL (7.4-10.4); Nucleated Red Blood Cells % 0.1; Platelet Count 139 10^3/uL (150-450); Red Blood Count 3.89 10^6 /uL (4.18-5.48); Red Cell Distribution Width 16 % (10-15)
[2019-01-21 08:11] LABS: Albumin 3.5 g/dL (3.2-5.2); Albumin/Globulin Ratio 1.2 (1-3); BUN/Creatinine Ratio 13.3 (8-20); Calcium 8.9 mg/dL (8.6-10.3); EGFR African American 127.3 (>60); EGFR Non-African American 105.2 (>60); Globulin 2.9 g/dL (2-4); Potassium 4.8 mmol/L (3.5-5.0); Total Bilirubin 0.4 mg/dL (0.2-1.0); Total Protein 6.4 g/dL (6.4-8.9)
[2019-01-21] MEDS: levETIRAcetam TAB* 500 MG PO SCH ×3 (08:52→21:02)
[2019-01-21] MEDS: Folic Acid TAB* 1 MG PO SCH (08:54)
[2019-01-21] MEDS: Tamsulosin CAP* 0.4 MG PO SCH (08:55)
[2019-01-21] MEDS: Diltiazem CD CAP* 240 MG PO SCH (08:55)
[2019-01-21] MEDS: Thiamine TAB* 100 MG TAB PO SCH (08:55)
[2019-01-21] MEDS: Atorvastatin* 20 MG TAB PO SCH (08:57)
[2019-01-21] MEDS: Multivitamins/Minerals TAB PO SCH (08:57)
[2019-01-21] MEDS: Digoxin TAB* 0.125 MG PO SCH (08:58)
[2019-01-21] MEDS: Aspirin EC TAB* 81 MG TAB.EC PO SCH (09:05)
[2019-01-21] MEDS: Divalproex ER TAB(*) 500 MG PO SCH (09:05)
[2019-01-21] MEDS: Sertraline* 100 MG TAB PO SCH (09:08)
[2019-01-21] MEDS: Fluticasone/Vilanterol MDI(NF) 100/25 MDI INH SCH (09:08)
--- NOTE | 2019-01-21 12:21 | PN ---
Progress Note - Progress Note Date of Service: 01/21/19 SOAP: Subjective: []Pt seen and examined at bedside today POD 1 sp R ankle ORIF. Ankle pain is well controlled. Denies CP, SOB, dizziness, nausea. Objective: []Gen: NAD RLE: Splint CDI, able to f/e MTPs, sensation intact though decreased in toes which is reported as consistent with baseline. Cap refil less than two seconds distally L calf supple and nontender Assessment: []POD 1 sp ORIF R ankle Plan: []NWB RLE Lovenox for DVT prophylaxis FU Dr Moe 2 weeks post op Vital Signs Temp 97.8 F 01/21/19 10:38 Pulse 83 01/21/19 10:38 Resp 16 01/21/19 12:15 BP 155/76 01/21/19 10:38 Pulse Ox 96 01/21/19 10:38 Intake & Output 01/20/19 01/21/19 01/21/19 18:59 06:59 18:59 Intake Total 800 1374 200 Output Total 875 1000 Balance -75 374 200 Intake: IV Fluids 800 54 ABX - CEFAZOLIN 54 LR 800 Oral 0 1320 200 Output: Urine 875 1000 Laboratory Last Values WBC 7.0 10^3/uL (3.5-10.8) 01/21/19 07:48 RBC 3.89 10^6 /uL (4.18-5.48) L 01/21/19 07:48 Hgb 12.7 g/dL (14.0-18.0) L 01/21/19 07:48 Hct 36 % (42-52) L 01/21/19 07:48 MCV 93 fL (80-94) 01/21/19 07:48 MCH 33 pg (27-31) H 01/21/19 07:48 MCHC 35 g/dL (31-36) 01/21/19 07:48 RDW 16 % (10-15) H 01/21/19 07:48 Plt Count 139 10^3/uL (150-450) L 01/21/19 07:48 MPV 7.8 fL (7.4-10.4) 01/21/19 07:48 Neut % (Auto) 81.2 % 01/21/19 07:48 Lymph % (Auto) 5.9 % 01/21/19 07:48 [place] % (Auto) 12.6 % 01/21/19 07:48 Eos % (Auto) 0.0 % 01/21/19 07:48 Baso % (Auto) 0.3 % 01/21/19 07:48 Absolute Neuts (auto) 5.6 10^3/ul (1.5-7.7) 01/21/19 07:48 Absolute Lymphs (auto) 0.4 10^3/ul (1.0-4.8) L 01/21/19 07:48 Absolute Monos (auto) 0.9 10^3/ul (0-0.8) H 01/21/19 07:48 Absolute Eos (auto) 0.0 10^3/ul (0-0.6) 01/21/19 07:48 Absolute Basos (auto) 0.0 10^3/ul (0-0.2) 01/21/19 07:48 Absolute Nucleated RBC 0.0 10^3/ul 01/21/19 07:48 Nucleated RBC % 0.1 01/21/19 07:48 INR (Anticoag Therapy) 1.08 (0.82-1.09) 01/19/19 20:55 APTT 31.5 seconds (26.0-38.0) 01/19/19 20:55 Sodium 129 mmol/L (135-145) L 01/21/19 07:48 Potassium 4.8 mmol/L (3.5-5.0) 01/21/19 07:48 Chloride 96 mmol/L (101-111) L 01/21/19 07:48 Carbon Dioxide 27 mmol/L (22-32) 01/21/19 07:48 Anion Gap 6 mmol/L (2-11) 01/21/19 07:48 BUN 10 mg/dL (6-24) 01/21/19 07:48 Creatinine 0.75 mg/dL (0.67-1.17) 01/21/19 07:48 Est GFR ( Amer) 127.3 (>60) 01/21/19 07:48 Est GFR (Non-Af Amer) 105.2 (>60) 01/21/19 07:48 BUN/Creatinine Ratio 13.3 (8-20) 01/21/19 07:48 Glucose 154 mg/dL (70-100) H 01/21/19 07:48 Calcium 8.9 mg/dL (8.6-10.3) 01/21/19 07:48 Magnesium 1.9 mg/dL (1.9-2.7) 01/20/19 05:54 Total Bilirubin 0.40 mg/dL (0.2-1.0) 01/21/19 07:48 AST 13 U/L (13-39) 01/21/19 07:48 ALT 8 U/L (7-52) 01/21/19 07:48 Alkaline Phosphatase 66 U/L (34-104) 01/21/19 07:48 Total Protein 6.4 g/dL (6.4-8.9) 01/21/19 07:48 Albumin 3.5 g/dL (3.2-5.2) 01/21/19 07:48 Globulin 2.9 g/dL (2-4) 01/21/19 07:48 Albumin/Globulin Ratio 1.2 (1-3) 01/21/19 07:48 TSH 2.95 mcIU/mL (0.34-5.60) 01/20/19 05:54 Digoxin 1.3 ng/ml (0.8-2.0) 01/19/19 20:55 Valproic Acid 92.0 mcg/mL (50-100) 01/19/19 20:55 Serum Alcohol < 10 mg/dL (<10) 01/19/19 20:55 Blood Type AB Negative 01/19/19 20:55 Antibody Screen Negative 01/19/19 20:55
[2019-01-21] MEDS ORDERED: hydrALAZINE IV* 20 MG/ML VIAL IV SLOW PU PRN (12:23)
[2019-01-21] MEDS: Tiotropium CAP.INH* CAP.INH/18 MCG (USE ORDER SET !) INH SCH (13:50)
[2019-01-21] MEDS: Nicotine PATCH 21 MG/24 HR* PATCH TRANSDERM SCH (13:59)
--- NOTE | 2019-01-21 16:55 | PN ---
Subjective Date of Service: 01/21/19 Interval History: Patient seen and examined, remains extremely sleepy, states pain is controlled. Denies fever or chills, no chest pain, no headache, no SOB. No n/v. WAM scores low. Objective Active Medications: Acetaminophen (Tylenol Tab*) 975 mg PO Q8H PRN PRN Reason: Fever or mild pain. Last Admin: 01/21/19 08:48 Dose: 975 mg Albuterol (Ventolin 2.5 Mg/3 Ml Neb.[place]*) 2.5 mg INH Q6H PRN PRN Reason: SOB/WHEEZING Aspirin (Aspirin Ec Tab*) 81 mg PO DAILY [facility] Last Admin: 01/21/19 09:05 Dose: 81 mg Atorvastatin Calcium (Lipitor*) 20 mg PO DAILY [facility] Last Admin: 01/21/19 08:57 Dose: 20 mg Cyclobenzaprine HCl (Flexeril Tab*) 10 mg PO BID PRN PRN Reason: SPASMS Last Admin: 01/21/19 08:51 Dose: 10 mg Digoxin (Lanoxin Tab*) 0.125 mg PO DAILY [facility] Last Admin: 01/21/19 08:58 Dose: 0.125 mg Diltiazem HCl (Cardizem Cd Cap*) 240 mg PO DAILY [facility] Last Admin: 01/21/19 08:55 Dose: 240 mg Divalproex Sodium (Depakote Er Tab(*)) 1,500 mg PO QAM [facility] Last Admin: 01/21/19 09:05 Dose: 1,500 mg Enoxaparin Sodium (Lovenox(*)) 40 mg SUBCUT Q24H [facility] Last Admin: 01/21/19 00:38 Dose: 40 mg Fluticasone/Vilanterol (Breo Ellipta Mdi 100/25(Nf)) 1 puff INH DAILY [facility] Last Admin: 01/21/19 09:08 Dose: Not Given Folic Acid (Folvite Tab*) 1 mg PO DAILY [facility] Last Admin: 01/21/19 08:54 Dose: 1 mg Hydralazine HCl (Apresoline Iv*) 5 mg IV SLOW PU Q6H PRN PRN Reason: SBP >170 or DBP >90 Levetiracetam (Keppra Tab*) 750 mg PO TID [facility] Last Admin: 01/21/19 13:50 Dose: 750 mg Levothyroxine Sodium (Synthroid Tab*) 25 mcg PO 0600 [facility] Last Admin: 01/21/19 05:04 Dose: 25 mcg Lorazepam (Ativan Inj*) 0 - 3 mg IV PUSH .PER [facility] PROTOCOL [facility]; Protocol Metoprolol Succinate (Toprol Xl Tab*) 25 mg PO BEDTIME [facility] Last Admin: 01/20/19 21:24 Dose: 25 mg Miscellaneous (Ativan Pyxis [place]) 1 ea N/A .PYXIS [place] PRN PRN Reason: PER PROTOCOL Multivitamins/Minerals (Theragran/Minerals Tab*) 1 tab PO DAILY [facility] Last Admin: 01/21/19 08:57 Dose: 1 tab Nicotine (Nicotine Patch 21 Mg/24 Hr*) 1 patch TRANSDERM DAILY [facility] Last Admin: 01/21/19 13:59 Dose: 1 patch Oxycodone HCl (Roxycodone Tab*) 5 mg PO Q8H PRN PRN Reason: moderate to severe ankle pain Last Admin: 01/21/19 14:27 Dose: 5 mg Pharmacy Profile Note (Nicotine Patch Removal Note*) 1 note PATCH OFF 2099 [facility] Polyethylene Glycol/Electrolytes (Miralax*) 17 gm PO DAILY PRN PRN Reason: CONSTIPATION Senna (Senokot Tab*) 1 tab PO BEDTIME PRN PRN Reason: if no BM during day Sertraline HCl (Zoloft*) 200 mg PO DAILY [facility] Last Admin: 01/21/19 09:08 Dose: 200 mg Tamsulosin HCl (Flomax Cap*) 0.4 mg PO DAILY [facility] Last Admin: 01/21/19 08:55 Dose: 0.4 mg Thiamine HCl (Vitamin B-1 Tab*) 100 mg PO DAILY [facility] Last Admin: 01/21/19 08:55 Dose: 100 mg Tiotropium [place] (Spiriva Cap.Inh*) 1 cap INH DAILY [facility] Last Admin: 01/21/19 13:50 Dose: 1 cap Vital Signs - 8 hr 01/21/19 01/21/19 01/21/19 08:51 08:58 10:30 Temperature Pulse Rate 74 Respiratory 16 16 Rate Blood Pressure (mmHg) O2 Sat by Pulse Oximetry 01/21/19 01/21/19 01/21/19 10:38 10:53 12:09 Temperature 97.8 F Pulse Rate 83 84 Respiratory 16 16 16 Rate Blood Pressure 155/76 173/85 (mmHg) O2 Sat by Pulse 96 95 Oximetry 01/21/19 01/21/19 01/21/19 12:15 14:00 14:27 Temperature Pulse Rate Respiratory 16 16 16 Rate Blood Pressure (mmHg) O2 Sat by Pulse Oximetry 01/21/19 01/21/19 01/21/19 15:49 16:00 16:17 Temperature 97.5 F Pulse Rate 72 Respiratory 17 16 16 Rate Blood Pressure 143/85 (mmHg) O2 Sat by Pulse 93 Oximetry Oxygen Devices in Use Now: None Appearance: dorwsy, NAD Eyes: No Scleral Icterus, PERRLA Ears/Nose/Mouth/Throat: NL Teeth, Lips, Gums, Mucous Membranes Moist Neck: NL Appearance and Movements; NL JVP, Trachea Midline Respiratory: Symmetrical Chest Expansion and Respiratory Effort, Clear to Auscultation Cardiovascular: NL Sounds; No Murmurs; No JVD, No Edema, - - irregular, no murmur Extremities: No Clubbing, Cyanosis Skin: No Rash or Ulcers Neurological: Alert and Oriented x 3, NL Sensation Nutrition: Taking PO's Result Diagrams: 01/21/19 07:48 01/21/19 07:48 Assess/Plan/Problems-Billing Assessment: This is a 63 year old male with hx of ETOH, afib, SIADH, neuropathy, mitral valve replacement, depression, bipolar, seizures that presented s/p mechanical fall with right ankle fracture. - Patient Problems (1) Closed right ankle fracture Code(s): S82.891A - OTH FRACTURE OF RIGHT LOWER LEG, INIT FOR CLOS FX SNOMED Code(s): 48650619 Comment: - Mechanical fall - ORIF, POD1 - Pain control, minimize narcotics 2/2 lethargy - NWB RLE - Lovenox for DVT prophy - POC per ortho (2) Afib Code(s): I48.91 - UNSPECIFIED ATRIAL FIBRILLATION SNOMED Code(s): 76291633 Comment: - Continue home digoxin, diltiazem and metoprolol - Patient not on AC due to frequent falls - Currently rate controlled, no need for tele (3) Alcohol abuse Code(s): F10.10 - ALCOHOL ABUSE, UNCOMPLICATED SNOMED Code(s): 00063387 Comment: - Continue WAM, scores low (1-3) last 24 hours (4) COPD (chronic obstructive pulmonary disease) Code(s): J44.9 - CHRONIC OBSTRUCTIVE PULMONARY DISEASE, UNSPECIFIED SNOMED Code(s): 85476696 Comment: - Not in exacerbation - Continue home inhalers (5) Lethargy Code(s): R53.83 - OTHER FATIGUE SNOMED Code(s): 581341661 Comment: - Likely chronic alcoholic/metabolic encphalopathy - No current seizure activity - Will continue to monitor and check valproic acid level and CT head in AM if no improvement (6) Seizure disorder Code(s): G40.909 - EPILEPSY, UNSP, NOT INTRACTABLE, WITHOUT STATUS EPILEPTICUS SNOMED Code(s): 543142538 Comment: - Continue depakote and keppra (7) Substance induced mood disorder Onset Date: 12/22/14 Code(s): F19.94 - OTH PSYCHOACTIVE SUBSTANCE USE, UNSP W MOOD DISORDER SNOMED Code(s): 574163018 Comment: - Has had SI in the past, currently stable, continue home med regimen (8) History of peripheral neuropathy Code(s): Z86.69 - PERSONAL HISTORY OF DIS OF THE NERVOUS SYS AND SENSE ORGANS SNOMED Code(s): 478335781 Comment: - On gabapentin (9) Full code status Code(s): Z78.9 - OTHER SPECIFIED HEALTH STATUS SNOMED Code(s): 588880819 Status and Disposition: Inpatient, dispo to STR when medically optimized.
[2019-01-21] MEDS: Metoprolol Succinate XL TAB* 25 MG PO SCH (21:01)
[2019-01-21] MEDS: Nicotine Patch Removal NOTE PATCH OFF SCH (21:06)
[2019-01-22] MEDS: Levothyroxine TAB* 25 MCG TAB PO SCH (06:09)
[2019-01-22 07:11] LABS: BUN/Creatinine Ratio 16.4 (8-20); Calcium 8.9 mg/dL (8.6-10.3); EGFR African American 131.3 (>60); EGFR Non-African American 108.5 (>60); Potassium 4.4 mmol/L (3.5-5.0)
[2019-01-22] MEDS: Tiotropium CAP.INH* CAP.INH/18 MCG (USE ORDER SET !) INH SCH (07:19)
[2019-01-22] MEDS: Fluticasone/Vilanterol MDI(NF) 100/25 MDI INH SCH (07:27)
[2019-01-22] MEDS ORDERED: Metoprolol Succinate XL TAB* 25 MG PO SCH (09:00)
[2019-01-22] MEDS: Nicotine PATCH 21 MG/24 HR* PATCH TRANSDERM SCH (09:27)
[2019-01-22] MEDS: Divalproex ER TAB(*) 500 MG PO SCH (09:28)
[2019-01-22] MEDS: levETIRAcetam TAB* 500 MG PO SCH ×3 (09:30→22:02)
[2019-01-22] MEDS: Folic Acid TAB* 1 MG PO SCH (09:30)
[2019-01-22] MEDS: Multivitamins/Minerals TAB PO SCH (09:33)
[2019-01-22] MEDS: Diltiazem CD CAP* 240 MG PO SCH (09:33)
[2019-01-22] MEDS: Digoxin TAB* 0.125 MG PO SCH (09:33)
[2019-01-22] MEDS: Thiamine TAB* 100 MG TAB PO SCH (09:34)
[2019-01-22] MEDS: Sertraline* 100 MG TAB PO SCH (09:35)
[2019-01-22] MEDS: Atorvastatin* 20 MG TAB PO SCH (09:35)
[2019-01-22] MEDS: Tamsulosin CAP* 0.4 MG PO SCH (09:35)
[2019-01-22] MEDS: Aspirin EC TAB* 81 MG TAB.EC PO SCH (09:35)
[2019-01-22] MEDS: Cyclobenzaprine TAB* 10 MG PO PRN (11:48)
--- NOTE | 2019-01-22 11:55 | PN ---
Progress Note - Progress Note Date of Service: 01/22/19 SOAP: Subjective: []Patient seen at bedside. Reports his right ankle pain is well controlled. He has been requiring frequent reminders of nonweightbearing status, though he is resistant. He has been uncooperative and combative with PT. Denies CP, SOB, dizziness, nausea. Objective: []Gen: NAD, tangential and requires redirection to stay on track RLE: Splint CDI, able to f/e MTPs, sensation intact though decreased in toes which is reported as consistent with baseline. Cap refill less than two seconds distally L calf supple and nontender Assessment: []POD 2 sp ORIF R ankle Plan: []NWB RLE Lovenox for DVT prophylaxis FU Dr Moe 2 weeks post op Until patient is willing to be NWB nursing mobilization will be limited to helping him stand to pivot. PT will continue to try to work with patient though will also be limited in their ability to ambulate him if he continues to refuse NWB status. Discussed necessity of NWB with patient. He reports understanding he risks displacing his fracture, poor healing if he bears weight. Patient states he knows his body and knows how much weight he can put on his RLE. Patient ultimately agrees to attempt to NWB and to try to cooperate with PT using crutches tomorrow. Vital Signs Temp 98.0 F 01/22/19 11:44 Pulse 92 01/22/19 11:44 Resp 18 01/22/19 11:48 BP 173/87 01/22/19 11:44 Pulse Ox 96 01/22/19 11:44 Intake & Output 01/21/19 01/22/19 01/22/19 18:59 06:59 18:59 Intake Total 560 1100 240 Output Total 950 Balance 560 150 240 Intake: Oral 560 1100 240 Output: Urine 950 Other: Estimated Void Medium Medium # Bowel Movements 0 # Voids 2 Laboratory Last Values WBC 7.0 10^3/uL (3.5-10.8) 01/21/19 07:48 RBC 3.89 10^6 /uL (4.18-5.48) L 01/21/19 07:48 Hgb 12.7 g/dL (14.0-18.0) L 01/21/19 07:48 Hct 36 % (42-52) L 01/21/19 07:48 MCV 93 fL (80-94) 01/21/19 07:48 MCH 33 pg (27-31) H 01/21/19 07:48 MCHC 35 g/dL (31-36) 01/21/19 07:48 RDW 16 % (10-15) H 01/21/19 07:48 Plt Count 139 10^3/uL (150-450) L 01/21/19 07:48 MPV 7.8 fL (7.4-10.4) 01/21/19 07:48 Neut % (Auto) 81.2 % 01/21/19 07:48 Lymph % (Auto) 5.9 % 01/21/19 07:48 [place] % (Auto) 12.6 % 01/21/19 07:48 Eos % (Auto) 0.0 % 01/21/19 07:48 Baso % (Auto) 0.3 % 01/21/19 07:48 Absolute Neuts (auto) 5.6 10^3/ul (1.5-7.7) 01/21/19 07:48 Absolute Lymphs (auto) 0.4 10^3/ul (1.0-4.8) L 01/21/19 07:48 Absolute Monos (auto) 0.9 10^3/ul (0-0.8) H 01/21/19 07:48 Absolute Eos (auto) 0.0 10^3/ul (0-0.6) 01/21/19 07:48 Absolute Basos (auto) 0.0 10^3/ul (0-0.2) 01/21/19 07:48 Absolute Nucleated RBC 0.0 10^3/ul 01/21/19 07:48 Nucleated RBC % 0.1 01/21/19 07:48 INR (Anticoag Therapy) 1.08 (0.82-1.09) 01/19/19 20:55 APTT 31.5 seconds (26.0-38.0) 01/19/19 20:55 Sodium 134 mmol/L (135-145) L 01/22/19 06:26 Potassium 4.4 mmol/L (3.5-5.0) 01/22/19 06:26 Chloride 99 mmol/L (101-111) L 01/22/19 06:26 Carbon Dioxide 31 mmol/L (22-32) 01/22/19 06:26 Anion Gap 4 mmol/L (2-11) 01/22/19 06:26 BUN 12 mg/dL (6-24) 01/22/19 06:26 Creatinine 0.73 mg/dL (0.67-1.17) 01/22/19 06:26 Est GFR ( Amer) 131.3 (>60) 01/22/19 06:26 Est GFR (Non-Af Amer) 108.5 (>60) 01/22/19 06:26 BUN/Creatinine Ratio 16.4 (8-20) 01/22/19 06:26 Glucose 98 mg/dL (70-100) 01/22/19 06:26 Calcium 8.9 mg/dL (8.6-10.3) 01/22/19 06:26 Magnesium 1.9 mg/dL (1.9-2.7) 01/20/19 05:54 Total Bilirubin 0.40 mg/dL (0.2-1.0) 01/21/19 07:48 AST 13 U/L (13-39) 01/21/19 07:48 ALT 8 U/L (7-52) 01/21/19 07:48 Alkaline Phosphatase 66 U/L (34-104) 01/21/19 07:48 Total Protein 6.4 g/dL (6.4-8.9) 01/21/19 07:48 Albumin 3.5 g/dL (3.2-5.2) 01/21/19 07:48 Globulin 2.9 g/dL (2-4) 01/21/19 07:48 Albumin/Globulin Ratio 1.2 (1-3) 01/21/19 07:48 TSH 2.95 mcIU/mL (0.34-5.60) 01/20/19 05:54 Digoxin 1.3 ng/ml (0.8-2.0) 01/19/19 20:55 Valproic Acid 92.0 mcg/mL (50-100) 01/19/19 20:55 Serum Alcohol < 10 mg/dL (<10) 01/19/19 20:55 Blood Type AB Negative 01/19/19 20:55 Antibody Screen Negative 01/19/19 20:55
--- NOTE | 2019-01-22 18:57 | PN ---
Subjective Date of Service: 01/22/19 Interval History: Patient seen and examined. Alert, pain well controlled. Per record, patient having issue initially with [id number] status on surgical side. Discussed at length, patient seems amenable and understands need for rehab/PT and adherence to ortho recommendations. Denies SOB, no chest pain, no fever or chills. Denies n/v/d. No calf pain. Objective Active Medications: Acetaminophen (Tylenol Tab*) 975 mg PO Q8H PRN PRN Reason: Fever or mild pain. Last Admin: 01/21/19 08:48 Dose: 975 mg Albuterol (Ventolin 2.5 Mg/3 Ml Neb.[place]*) 2.5 mg INH Q6H PRN PRN Reason: SOB/WHEEZING Aspirin (Aspirin Ec Tab*) 81 mg PO DAILY [facility] Last Admin: 01/22/19 09:35 Dose: 81 mg Atorvastatin Calcium (Lipitor*) 20 mg PO DAILY [facility] Last Admin: 01/22/19 09:35 Dose: 20 mg Cyclobenzaprine HCl (Flexeril Tab*) 10 mg PO BID PRN PRN Reason: SPASMS Last Admin: 01/22/19 11:48 Dose: 10 mg Digoxin (Lanoxin Tab*) 0.125 mg PO DAILY [facility] Last Admin: 01/22/19 09:33 Dose: 0.125 mg Diltiazem HCl (Cardizem Cd Cap*) 240 mg PO DAILY [facility] Last Admin: 01/22/19 09:33 Dose: 240 mg Divalproex Sodium (Depakote Er Tab(*)) 1,500 mg PO QAM [facility] Last Admin: 01/22/19 09:28 Dose: 1,500 mg Enoxaparin Sodium (Lovenox(*)) 40 mg SUBCUT Q24H [facility] Last Admin: 01/21/19 23:37 Dose: 40 mg Fluticasone/Vilanterol (Breo Ellipta Mdi 100/25(Nf)) 1 puff INH DAILY [facility] Last Admin: 01/22/19 07:27 Dose: Not Given Folic Acid (Folvite Tab*) 1 mg PO DAILY [facility] Last Admin: 01/22/19 09:30 Dose: 1 mg Hydralazine HCl (Apresoline Iv*) 5 mg IV SLOW PU Q6H PRN PRN Reason: SBP >170 or DBP >90 Levetiracetam (Keppra Tab*) 750 mg PO TID [facility] Last Admin: 01/22/19 14:04 Dose: 750 mg Levothyroxine Sodium (Synthroid Tab*) 25 mcg PO 0600 [facility] Last Admin: 01/22/19 06:09 Dose: 25 mcg Lorazepam (Ativan Inj*) 0 - 3 mg IV PUSH .PER [facility] PROTOCOL [facility]; Protocol Metoprolol Succinate (Toprol Xl Tab*) 25 mg PO DAILY [facility] Last Admin: 01/22/19 09:30 Dose: 25 mg Miscellaneous (Ativan Pyxis [place]) 1 ea N/A .PYXIS [place] PRN PRN Reason: PER PROTOCOL Multivitamins/Minerals (Theragran/Minerals Tab*) 1 tab PO DAILY [facility] Last Admin: 01/22/19 09:33 Dose: 1 tab Nicotine (Nicotine Patch 21 Mg/24 Hr*) 1 patch TRANSDERM DAILY [facility] Last Admin: 01/22/19 09:27 Dose: Not Given Oxycodone HCl (Roxycodone Tab*) 5 mg PO Q8H PRN PRN Reason: moderate to severe ankle pain Last Admin: 01/21/19 23:34 Dose: 5 mg Pharmacy Profile Note (Nicotine Patch Removal Note*) 1 note PATCH OFF 2100 [facility] Last Admin: 01/21/19 21:06 Dose: 1 note Polyethylene Glycol/Electrolytes (Miralax*) 17 gm PO DAILY PRN PRN Reason: CONSTIPATION Senna (Senokot Tab*) 1 tab PO BEDTIME PRN PRN Reason: if no BM during day Sertraline HCl (Zoloft*) 200 mg PO DAILY [facility] Last Admin: 01/22/19 09:35 Dose: 200 mg Tamsulosin HCl (Flomax Cap*) 0.4 mg PO DAILY [facility] Last Admin: 01/22/19 09:35 Dose: 0.4 mg Thiamine HCl (Vitamin B-1 Tab*) 100 mg PO DAILY [facility] Last Admin: 01/22/19 09:34 Dose: 100 mg Tiotropium [place] (Spiriva Cap.Inh*) 1 cap INH DAILY [facility] Last Admin: 01/22/19 07:19 Dose: 1 cap Vital Signs - 8 hr 01/22/19 01/22/19 01/22/19 11:44 11:48 14:06 Temperature 98.0 F Pulse Rate 92 Respiratory 16 18 18 Rate Blood Pressure 173/87 (mmHg) O2 Sat by Pulse 96 Oximetry 01/22/19 01/22/19 01/22/19 15:23 15:51 17:40 Temperature 97.5 F Pulse Rate 74 Respiratory 17 18 20 Rate Blood Pressure 143/66 (mmHg) O2 Sat by Pulse 97 Oximetry Oxygen Devices in Use Now: None Appearance: alert, NAD Eyes: No Scleral Icterus, PERRLA Ears/Nose/Mouth/Throat: NL Teeth, Lips, Gums, Mucous Membranes Moist Neck: NL Appearance and Movements; NL JVP, Trachea Midline Respiratory: Symmetrical Chest Expansion and Respiratory Effort, Clear to Auscultation Cardiovascular: NL Sounds; No Murmurs; No JVD - irregular, No Edema Abdominal: NL Sounds; No Tenderness; No Distention Extremities: No Edema, No Clubbing, Cyanosis Skin: No Rash or Ulcers Neurological: Alert and Oriented x 3, - - bilateral foot neuropathy Nutrition: Taking PO's Result Diagrams: 01/21/19 07:48 01/22/19 06:26 Assess/Plan/Problems-Billing Assessment: This is a 63 year old male with hx of ETOH, afib, SIADH, neuropathy, mitral valve replacement, depression, bipolar, seizures that presented s/p mechanical fall with right ankle fracture. - Patient Problems (1) Closed right ankle fracture Code(s): S82.891A - OTH FRACTURE OF RIGHT LOWER LEG, INIT FOR CLOS FX SNOMED Code(s): 74481509 Comment: - Mechanical fall - ORIF, POD2 - Pain control, minimize narcotics 2/2 lethargy - NWB RLE - Lovenox for DVT prophy - POC per ortho - PT/OT (2) Afib Code(s): I48.91 - UNSPECIFIED ATRIAL FIBRILLATION SNOMED Code(s): 42300135 Comment: - Continue home digoxin, diltiazem and metoprolol - Patient not on AC due to frequent falls - Currently rate controlled, no need for tele (3) Alcohol abuse Code(s): F10.10 - ALCOHOL ABUSE, UNCOMPLICATED SNOMED Code(s): 83208221 Comment: - Continue WAM, scores low (1-3) last 48 hours - DC WAM assessment (4) COPD (chronic obstructive pulmonary disease) Code(s): J44.9 - CHRONIC OBSTRUCTIVE PULMONARY DISEASE, UNSPECIFIED SNOMED Code(s): 53834589 Comment: - Not in exacerbation - Continue home inhalers (5) Lethargy Code(s): R53.83 - OTHER FATIGUE SNOMED Code(s): 803965476 Comment: - Likely chronic alcoholic/metabolic encphalopathy - No current seizure activity - Improved, no need to CT head (6) Seizure disorder Code(s): G40.909 - EPILEPSY, UNSP, NOT INTRACTABLE, WITHOUT STATUS EPILEPTICUS SNOMED Code(s): 771603568 Comment: - Continue depakote and keppra (7) HTN (hypertension) Code(s): I10 - ESSENTIAL (PRIMARY) HYPERTENSION SNOMED Code(s): 16169964 Comment: - Some recorded higher BPs this admission - Will increase metoprolol to 37.5mg daily to start tomorrow, continue hydralazine PRN (8) Substance induced mood disorder Onset Date: 12/22/14 Code(s): F19.94 - OTH PSYCHOACTIVE SUBSTANCE USE, UNSP W MOOD DISORDER SNOMED Code(s): 035340493 Comment: - Has had SI in the past, currently stable, continue home med regimen (9) History of peripheral neuropathy Code(s): Z86.69 - PERSONAL HISTORY OF DIS OF THE NERVOUS SYS AND SENSE ORGANS SNOMED Code(s): 512302060 Comment: - On gabapentin (10) Full code status Code(s): Z78.9 - OTHER SPECIFIED HEALTH STATUS SNOMED Code(s): 242444251 Status and Disposition: Inpatient. Medically stable for discharge to [facility] when bed obtained.
[2019-01-22] MEDS ORDERED: LORazepam TAB(*) 1 MG PO PRN (18:59)
[2019-01-22] MEDS: Nicotine Patch Removal NOTE PATCH OFF SCH (22:03)
[2019-01-22] MEDS: Enoxaparin(*) 40 MG/0.4 ML SYR SUBCUT SCH (23:55)
[2019-01-23] MEDS: oxyCODONE TAB* 5 MG TAB PO PRN (00:19)
[2019-01-23] MEDS: Levothyroxine TAB* 25 MCG TAB PO SCH (06:12)
[2019-01-23] MEDS: Fluticasone/Vilanterol MDI(NF) 100/25 MDI INH SCH (07:39)
[2019-01-23] MEDS: Tiotropium CAP.INH* CAP.INH/18 MCG (USE ORDER SET !) INH SCH (07:41)
[2019-01-23] MEDS ORDERED: Metoprolol Succinate XL TAB* 25 MG PO SCH (09:00)
[2019-01-23] MEDS ORDERED: Mometasone/Formoter 100/5 MDI INH SCH (09:00)
[2019-01-23] MEDS: levETIRAcetam TAB* 500 MG PO SCH (10:02)
[2019-01-23] MEDS: Diltiazem CD CAP* 240 MG PO SCH (10:04)
[2019-01-23] MEDS: Multivitamins/Minerals TAB PO SCH (10:04)
[2019-01-23] MEDS: Folic Acid TAB* 1 MG PO SCH (10:05)
[2019-01-23] MEDS: Sertraline* 100 MG TAB PO SCH (10:05)
[2019-01-23] MEDS: Digoxin TAB* 0.125 MG PO SCH (10:05)
[2019-01-23] MEDS: Tamsulosin CAP* 0.4 MG PO SCH (10:06)
[2019-01-23] MEDS: Aspirin EC TAB* 81 MG TAB.EC PO SCH (10:06)
[2019-01-23] MEDS: Divalproex ER TAB(*) 500 MG PO SCH (10:06)
[2019-01-23] MEDS: Thiamine TAB* 100 MG TAB PO SCH (10:06)
[2019-01-23] MEDS: Atorvastatin* 20 MG TAB PO SCH (10:07)
[2019-01-23] MEDS: Nicotine PATCH 21 MG/24 HR* PATCH TRANSDERM SCH (10:07)
[2019-01-23 11:55] VITALS: BP 148/94
--- NOTE | 2019-01-23 18:31 | DS ---
CC: Dr. William Moe, Orthopedics * DISCHARGE SUMMARY/ADMISSION HISTORY AND PHYSICAL: DATE OF ADMISSION: 01/20/19 DATE OF DISCHARGE TO [facility]01/23/19 DATE OF ADMISSION TO [facility]/23/19 MY ATTENDING FOR TODAY: Dr. Regulo Moreno.* (DICTATED BY BLANCA MEDLEY NP) HOSPITAL COURSE: Please refer to admitting H and P dated 01/20/[address] Kusum Gamboa, but in short, Mr. Cortez is a 63-year-old male patient with medical history consisting of COPD, tobacco abuse, seizure disorder, bipolar disorder, hypertension, coronary artery disease, mitral valve replacement, mitral regurgitation, atrial fibrillation, and alcohol use disorder, who presented to the emergency department with pain in the right lower extremity. The patient states that he was walking on the sidewalk when his legs suddenly gave out. He had been drinking alcohol earlier that day. It was difficult to obtain exactly what the precipitating events were, but in any case, the patient was brought in and found to have a fracture of his right ankle with lateral displacement. The patient was given moderate sedation in the emergency department with Versed and fentanyl and had a closed reduction with stabilization with a fiberglass cast, pending evaluation by Orthopedic Surgery. The patient had appropriate alignment and then was subsequently admitted to medical service. Dr. Hernandez was on-call that evening and Dr. Moe was then subsequently consulted for orthopedic intervention. The patient was placed on WAM protocol as he is known for alcohol abuse; however, his WAM scores remained low throughout the course of his admission. He was optimized for surgery and then underwent open reduction and internal fixation of his ankle fracture on . He has had a relatively uneventful postoperative course. Again, his WAM scores have been low. In terms of his COPD, his respiratory status has been stable. In terms of his atrial fibrillation and coronary artery disease, he has had no issues with chest pains or his atrial fibrillation. He has had no issues with his bioprosthetic mitral valve. The patient was having some difficulty with participating with PT and as such we were having difficulty finding placement for him in short-term rehab. The patient is nonweightbearing on the right lower extremity, which makes it difficult for us to send the patient back home and it also gave us limited resources to send the patient to short-term rehab. It was determined that the patient because he does need ongoing physical therapy would be an appropriate candidate for physical therapy services under swing status here at [facility], [place]. The patient is discharged from acute care services and admitted to swing status here in the hospital. DISCHARGE DIAGNOSES: 1. Status post fall with right ankle fracture, status post ORIF, postop day 2. 2. Alcohol use disorder. 3. Chronic obstructive pulmonary disease, not in exacerbation. 4. History of bipolar disorder. 5. History of seizure disorder. 6. Hypertension. 7. Coronary artery disease. 8. Atrial fibrillation, not on anticoagulation. 9. Peripheral vascular disease with peripheral neuropathy. 10. History of bioprosthetic mitral valve replacement. MEDICATIONS FOR DISCHARGE AND ADMISSION TO SWING: Include: 1. Tylenol 650 mg p.o. q.6 hours as needed for mild pain or fever. 2. Albuterol nebulizer 2.5 mg inhaled q.6 hours as needed for shortness of breath. 3. Aspirin 81 mg daily. 4. Atorvastatin 20 mg p.o. daily. 5. Pletal 100 mg p.o. b.i.d. 6. Cyclobenzaprine 10 mg p.o. b.i.d. as needed for spasm. 7. Digoxin 0.125 mg p.o. daily. 8. Diltiazem 240 mg p.o. daily. 9. Divalproex ER tablet 1500 mg p.o. in the morning. 10. Docusate 100 mg p.o. b.i.d. as needed. 11. Lovenox 40 mg subcu q.24 hours. 12. Folic acid 1 mg p.o. daily. 13. Keppra 750 mg p.o. 3 times a day. 14. Levothyroxine 25 mcg p.o. daily. 15. Lorazepam 1 mg p.o. q.6 hours as needed. 16. Magnesium hydroxide 30 mL p.o. q.4 hours as needed. 17. Metoprolol succinate XL 37.5 mg p.o. daily. 18. Dulera 2 puffs inhaled 2 times a day. 19. Multivitamin with minerals 1 tablet p.o. daily. 20. Nicotine patch 21 mg transdermal q.24 hours. 21. Oxycodone 5 mg p.o. q.8 hours as needed for severe pain. 22. MiraLAX 17 g p.o. daily as needed. 23. Sertraline 200 mg p.o. daily. 24. Flomax 0.4 mg p.o. daily. 25. Thiamine 100 mg p.o. daily. 26. Spiriva 1 cap 18 mcg inhaled daily. REVIEW OF SYSTEMS: On the day of discharge, the patient denies any fever, fatigue, or chills. No headache, no blurry vision. No neurologic complaints. Denies any shortness of breath. No chest pain. No nausea, no vomiting, no abdominal pain. No urinary complaints. No bowel complaints. States his ankle pain is a 4/10 and tolerable. Does have chronic neuropathic pain, which is at his baseline. Denies any further constitutional complaints. PHYSICAL EXAMINATION: The patient is awake, alert, in no acute distress. Vital signs are blood pressure 121/75, heart rate 71, respiratory rate 17, O2 saturation 97% on room air with a temperature of 97.6. HEENT: The patient is atraumatic, normocephalic. PERRLA. Nonicteric sclerae. Oral mucosa is moist. Tongue is midline. Neck is supple, nontender. No JVD noted. No carotid bruits auscultated. Cardiovascular: S1, S2 present. No gallops or rubs noted. He does have a grade 2/6 systolic murmur. Rate is irregular. Lungs are clear at the apices bilaterally, diminished at the bases with no wheezing, rhonchi, or rales noted. Abdomen is soft, nontender, nondistended. Positive bowel sounds in all 4 quadrants. is deferred. Musculoskeletal: There is no clubbing, no cyanosis, and no edema. He has brisk cap refill noted on the operative side. Toes are warm and dry with some mild edema. He does have diminished sensation on the left lower extremity at baseline, but gross motor is otherwise intact. Neurologic: He is otherwise grossly intact with no focal deficits. Psychiatric: He can sometimes be obstinate, but otherwise appropriate. DIAGNOSTIC STUDIES/LAB DATA: WBCs 7.0, RBCs 3.89, hemoglobin 12.7, hematocrit 36, platelets 139. Sodium 134, potassium 4.4, chloride 99, CO2 of 31, creatinine 0.73, BUN 12, GFR 108.5, glucose 98. Hemoglobin A1c is 5.1. Digoxin level on 01/19/19 is 1.3. Imaging: There is no current imaging available. DISPOSITION: The patient is being discharged from acute care and will be admitted to [facility]. He is in stable condition. DIET: Heart-healthy diet, caffeine okay, as tolerated. ACTIVITY: Participating in PT without restriction as tolerated. He is nonweightbearing on the right lower extremity as tolerated. FOLLOWUPS: Consultation has been placed for Dr. Moe to continue to follow the patient while he is rehabilitating and for cast care management. DISPOSITION: Transferred to [facility]. TIME SPENT: 45 minutes on discharge planning and readmission to swing status. BLANCA MEDLEY NP [id number]/CPS #: [id number] YARIEL
== END 2019-01-23 13:36 | disposition swing bed (61) | DRG 492 ==
LOC: ED 19:09 → MEDTELE 23:44 → SSU 01-20 15:48
PROVIDERS: ADMIT Internal Medicine; ATTEND Internal Medicine
PROC: 0QSGXZZ Reposition Right Tibia, External Approach (ICD-10-PCS; 2019-01-19)
PROC: 0QSJ04Z Reposition Right Fibula with Internal Fixation Device, Open Approach (ICD-10-PCS; principal; 2019-01-20 13:15)
DX: S82.841A Displaced bimalleolar fracture of right lower leg, initial encounter for closed fracture (principal); G93.41 Metabolic encephalopathy; I50.30 Unspecified diastolic (congestive) heart failure; F10.239 Alcohol dependence with withdrawal, unspecified; E22.2 Syndrome of inappropriate secretion of antidiuretic hormone; I11.0 Hypertensive heart disease with heart failure; G62.1 Alcoholic polyneuropathy; W18.30XA Fall on same level, unspecified, initial encounter; J44.9 Chronic obstructive pulmonary disease, unspecified; G40.909 Epilepsy, unspecified, not intractable, without status epilepticus; F31.9 Bipolar disorder, unspecified; I48.91 Unspecified atrial fibrillation; 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native coronary artery without angina pectoris; E03.9 Hypothyroidism, unspecified; I45.10 Unspecified right bundle-branch block; F19.94 Other psychoactive substance use, unspecified with psychoactive substance-induced mood disorder; N40.0 Benign prostatic hyperplasia without lower urinary tract symptoms; F17.210 Nicotine dependence, cigarettes, uncomplicated; Y92.410 Unspecified street and highway as the place of occurrence of the external cause; Z95.2 Presence of prosthetic heart valve; Z79.82 Long term (current) use of aspirin; Z79.51 Long term (current) use of inhaled steroids; Z79.899 Other long term (current) drug therapy; Z95.1 Presence of aortocoronary bypass graft; Z95.0 Presence of cardiac pacemaker
CPT/HCPCS: 36415; 71045; 76000; 80048; 80053; 80162; 80164; 80320; 83735; 84443; 85025; 85027; 85610; 85730; 86850; 86900; 86901; 93005; 94640; 99284; 99406; A9270-GY; C1713; G0480; G8978-GP-CK; G8979-GP-CI; J0690; J1100; J1650; J2250; J2270; J2405; J2704; J2765; J3010; J3411; J3490

== ENCOUNTER 2019-01-23 13:35 | Inpatient (IN) | payer MEDICARE, MEDICAID ==
[2019-01-23] MEDS ORDERED: Magnesium Hydroxide LIQ* 30 ML UDC PO PRN (14:46)
[2019-01-23] MEDS ORDERED: Docusate CAP* 100 MG PO PRN (14:46)
[2019-01-23] MEDS ORDERED: Cyclobenzaprine TAB* 10 MG PO PRN (14:57)
[2019-01-23] MEDS ORDERED: Polyethylene Glycol 3350* 17 GM PACKET PO PRN (14:58)
[2019-01-23] MEDS ORDERED: Albuterol 2.5 MG/3 ML NEB.SOL* (0.083%) INH PRN (15:01)
[2019-01-23] MEDS: Mometasone/Formoter 100/5 MDI INH SCH (19:49)
[2019-01-23] MEDS: Cilostazol TAB* 100 MG PO SCH (22:28)
[2019-01-23] MEDS: oxyCODONE TAB* 5 MG TAB PO PRN (22:28)
[2019-01-23] MEDS: levETIRAcetam TAB* 500 MG PO SCH (22:28)
[2019-01-23] MEDS: Enoxaparin(*) 40 MG/0.4 ML SYR SUBCUT SCH (22:29)
[2019-01-24] MEDS: Levothyroxine TAB* 25 MCG TAB PO SCH (05:26)
[2019-01-24] MEDS: Tiotropium CAP.INH* CAP.INH/18 MCG (USE ORDER SET !) INH SCH (08:23)
[2019-01-24] MEDS: Mometasone/Formoter 100/5 MDI INH SCH ×2 (08:23→19:28)
[2019-01-24] MEDS ORDERED: Umeclidinium 62.5 MDI(NF) MDI INH SCH (09:00)
[2019-01-24] MEDS: Divalproex ER TAB(*) 500 MG PO SCH (10:15)
[2019-01-24] MEDS: Cilostazol TAB* 100 MG PO SCH ×2 (10:16→20:41)
[2019-01-24] MEDS: Metoprolol Succinate XL TAB* 25 MG PO SCH (10:17)
[2019-01-24] MEDS: levETIRAcetam TAB* 500 MG PO SCH ×3 (10:17→20:40)
[2019-01-24] MEDS: Atorvastatin* 20 MG TAB PO SCH (10:18)
[2019-01-24] MEDS: Thiamine TAB* 100 MG TAB PO SCH (10:18)
[2019-01-24] MEDS: Diltiazem CD CAP* 240 MG PO SCH (10:18)
[2019-01-24] MEDS: Folic Acid TAB* 1 MG PO SCH (10:18)
[2019-01-24] MEDS: Aspirin EC TAB* 81 MG TAB.EC PO SCH ×2 (10:19→10:23)
[2019-01-24] MEDS: Tamsulosin CAP* 0.4 MG PO SCH (10:19)
[2019-01-24] MEDS: Sertraline* 100 MG TAB PO SCH (10:20)
[2019-01-24] MEDS: oxyCODONE TAB* 5 MG TAB PO PRN (10:20)
[2019-01-24] MEDS: Digoxin TAB* 0.125 MG PO SCH (10:21)
[2019-01-24] MEDS: Multivitamins/Minerals TAB PO SCH (10:21)
[2019-01-24] MEDS: Nicotine PATCH 21 MG/24 HR* PATCH TRANSDERM SCH (10:22)
[2019-01-24] MEDS: Nicotine Patch Removal NOTE PATCH OFF SCH (20:42)
[2019-01-24] MEDS: Enoxaparin(*) 40 MG/0.4 ML SYR SUBCUT SCH (20:42)
[2019-01-25] MEDS: oxyCODONE TAB* 5 MG TAB PO PRN (01:37)
[2019-01-25] MEDS: Levothyroxine TAB* 25 MCG TAB PO SCH (06:25)
[2019-01-25] MEDS: Atorvastatin* 20 MG TAB PO SCH (10:17)
[2019-01-25] MEDS: Cilostazol TAB* 100 MG PO SCH ×2 (10:17→21:40)
[2019-01-25] MEDS: Aspirin EC TAB* 81 MG TAB.EC PO SCH (10:17)
[2019-01-25] MEDS: Diltiazem CD CAP* 240 MG PO SCH (10:18)
[2019-01-25] MEDS: Tiotropium CAP.INH* CAP.INH/18 MCG (USE ORDER SET !) INH SCH (10:18)
[2019-01-25] MEDS: levETIRAcetam TAB* 500 MG PO SCH ×3 (10:18→21:41)
[2019-01-25] MEDS: Acetaminophen TAB* 325 MG PO PRN (10:20)
[2019-01-25] MEDS: Tamsulosin CAP* 0.4 MG PO SCH (10:21)
[2019-01-25] MEDS: Nicotine PATCH 21 MG/24 HR* PATCH TRANSDERM SCH (10:21)
[2019-01-25] MEDS: Sertraline* 100 MG TAB PO SCH (10:21)
[2019-01-25] MEDS: Divalproex ER TAB(*) 500 MG PO SCH (10:21)
[2019-01-25] MEDS: Folic Acid TAB* 1 MG PO SCH (10:22)
[2019-01-25] MEDS: Digoxin TAB* 0.125 MG PO SCH (10:22)
[2019-01-25] MEDS: Thiamine TAB* 100 MG TAB PO SCH (10:22)
[2019-01-25] MEDS: Metoprolol Succinate XL TAB* 25 MG PO SCH (10:23)
[2019-01-25] MEDS: Multivitamins/Minerals TAB PO SCH (10:24)
[2019-01-25] MEDS: Mometasone/Formoter 100/5 MDI INH SCH ×2 (10:24→18:59)
[2019-01-25] MEDS: Enoxaparin(*) 40 MG/0.4 ML SYR SUBCUT SCH (21:42)
[2019-01-25] MEDS: Nicotine Patch Removal NOTE PATCH OFF SCH (21:45)
[2019-01-26] MEDS: oxyCODONE TAB* 5 MG TAB PO PRN ×3 (02:29→20:28)
[2019-01-26] MEDS: Levothyroxine TAB* 25 MCG TAB PO SCH (05:48)
[2019-01-26] MEDS: Multivitamins/Minerals TAB PO SCH (08:10)
[2019-01-26] MEDS: Metoprolol Succinate XL TAB* 25 MG PO SCH (08:10)
[2019-01-26] MEDS: Divalproex ER TAB(*) 500 MG PO SCH (08:13)
[2019-01-26] MEDS: Cilostazol TAB* 100 MG PO SCH ×2 (08:15→20:28)
[2019-01-26] MEDS: Digoxin TAB* 0.125 MG PO SCH (08:15)
[2019-01-26] MEDS: Atorvastatin* 20 MG TAB PO SCH (08:16)
[2019-01-26] MEDS: Folic Acid TAB* 1 MG PO SCH (08:17)
[2019-01-26] MEDS: levETIRAcetam TAB* 500 MG PO SCH ×3 (08:17→20:29)
[2019-01-26] MEDS: Tiotropium CAP.INH* CAP.INH/18 MCG (USE ORDER SET !) INH SCH (08:18)
[2019-01-26] MEDS: Tamsulosin CAP* 0.4 MG PO SCH (08:19)
[2019-01-26] MEDS: Diltiazem CD CAP* 240 MG PO SCH (08:19)
[2019-01-26] MEDS: Sertraline* 100 MG TAB PO SCH (08:20)
[2019-01-26] MEDS: Aspirin EC TAB* 81 MG TAB.EC PO SCH (08:20)
[2019-01-26] MEDS: Nicotine PATCH 21 MG/24 HR* PATCH TRANSDERM SCH (08:21)
[2019-01-26] MEDS: Mometasone/Formoter 100/5 MDI INH SCH ×3 (08:22→20:32)
[2019-01-26] MEDS: Thiamine TAB* 100 MG TAB PO SCH (08:27)
--- NOTE | 2019-01-26 17:39 | PN ---
Subjective Date of Service: 01/26/19 Interval History: patient has no complaints, resting in bed , Denies chest pain or shortness of breath. would like to smoke a cigarette. Denies chest pain or shortness of breath. denies abd pain n/v/d. Family History: Unchanged from Admission Social History: Unchanged from Admission Past Medical History: Unchanged from Admission Objective Active Medications: Acetaminophen (Tylenol Tab*) 650 mg PO Q4H PRN PRN Reason: FEVER/PAIN Last Admin: 01/25/19 10:20 Dose: 650 mg Albuterol (Ventolin 2.5 Mg/3 Ml Neb.[place]*) 2.5 mg INH Q6H PRN PRN Reason: SOB/WHEEZING Aspirin (Aspirin Ec Tab*) 81 mg PO DAILY [facility] Last Admin: 01/26/19 08:20 Dose: 81 mg Atorvastatin Calcium (Lipitor*) 20 mg PO DAILY [facility] Last Admin: 01/26/19 08:16 Dose: 20 mg Cilostazol (Pletal Tab*) 100 mg PO BID [facility] Last Admin: 01/26/19 08:15 Dose: 100 mg Cyclobenzaprine HCl (Flexeril Tab*) 10 mg PO BID PRN PRN Reason: SPASMS Digoxin (Lanoxin Tab*) 0.125 mg PO DAILY [facility] Last Admin: 01/26/19 08:15 Dose: 0.125 mg Diltiazem HCl (Cardizem Cd Cap*) 240 mg PO DAILY [facility] Last Admin: 01/26/19 08:19 Dose: 240 mg Divalproex Sodium (Depakote Er Tab(*)) 1,500 mg PO QAM [facility] Last Admin: 01/26/19 08:13 Dose: 1,500 mg Docusate Sodium (Colace Cap*) 100 mg PO BID PRN PRN Reason: CONSTIPATION Enoxaparin Sodium (Lovenox(*)) 40 mg SUBCUT Q24H [facility] Last Admin: 01/25/19 21:42 Dose: 40 mg Folic Acid (Folvite Tab*) 1 mg PO DAILY [facility] Last Admin: 01/26/19 08:17 Dose: 1 mg Levetiracetam (Keppra Tab*) 750 mg PO TID [facility] Last Admin: 01/26/19 13:40 Dose: 750 mg Levothyroxine Sodium (Synthroid Tab*) 25 mcg PO DAILY@0600 [facility] Last Admin: 01/26/19 05:48 Dose: 25 mcg Lorazepam (Ativan Tab(*)) 1 mg PO Q6H PRN PRN Reason: ANXIETY Magnesium Hydroxide (Milk Of Magnesia Liq*) 30 ml PO Q4H PRN PRN Reason: CONSTIPATION Metoprolol Succinate (Toprol Xl Tab*) 37.5 mg PO DAILY [facility] Last Admin: 01/26/19 08:10 Dose: 37.5 mg Mometasone Furoate/Formoterol Fumar (Dulera 100/5 Mdi*) 2 puff INH BID [facility] Last Admin: 01/26/19 08:26 Dose: 2 puff Multivitamins/Minerals (Theragran/Minerals Tab*) 1 tab PO DAILY [facility] Last Admin: 01/26/19 08:10 Dose: 1 tab Nicotine (Nicotine Patch 21 Mg/24 Hr*) 1 patch TRANSDERM DAILY [facility] Last Admin: 01/26/19 08:21 Dose: Not Given Oxycodone HCl (Roxycodone Tab*) 5 mg PO Q8H PRN PRN Reason: moderate ankle pain Last Admin: 01/26/19 08:15 Dose: 5 mg Pharmacy Profile Note (Nicotine Patch Removal Note*) 1 note PATCH OFF 2100 [facility] Last Admin: 01/25/19 21:45 Dose: Not Given Polyethylene Glycol/Electrolytes (Miralax*) 17 gm PO DAILY PRN PRN Reason: CONSTIPATION Sertraline HCl (Zoloft*) 200 mg PO DAILY [facility] Last Admin: 01/26/19 08:20 Dose: 200 mg Tamsulosin HCl (Flomax Cap*) 0.4 mg PO DAILY [facility] Last Admin: 01/26/19 08:19 Dose: 0.4 mg Thiamine HCl (Vitamin B-1 Tab*) 100 mg PO DAILY [facility] Last Admin: 01/26/19 08:27 Dose: 100 mg Tiotropium [place] (Spiriva Cap.Inh*) 1 cap INH DAILY [facility] Last Admin: 01/26/19 08:18 Dose: 1 cap Vital Signs - 8 hr 01/26/19 10:18 Respiratory 20 Rate Oxygen Devices in Use Now: None Appearance: alert, resting in bed, no acute distress Eyes: No Scleral Icterus Ears/Nose/Mouth/Throat: Clear Oropharnyx, Mucous Membranes Moist Neck: NL Appearance and Movements; NL JVP, Trachea Midline Respiratory: Symmetrical Chest Expansion and Respiratory Effort, Clear to Auscultation Cardiovascular: NL Sounds; No Murmurs; No JVD, No Edema Abdominal: NL Sounds; No Tenderness; No Distention Extremities: No Edema, No Clubbing, Cyanosis, - - cast in place to right lower leg, pop pulse +2 to right leg , pedal +1 to left Skin: No Rash or Ulcers Neurological: Alert and Oriented x 3 Nutrition: Taking PO's Assess/Plan/Problems-Billing Assessment: This is a 63 year old male with hx of ETOH, afib, SIADH, neuropathy, mitral valve replacement, depression, bipolar, seizures that presented s/p mechanical fall with right ankle fracture- here for PT on swing status - Patient Problems (1) Closed right ankle fracture Status: Acute Code(s): S82.891A - OTH FRACTURE OF RIGHT LOWER LEG, INIT FOR CLOS FX SNOMED Code(s): 31193391 Comment: - Mechanical fall - Pain control, minimize narcotics 2/2 lethargy - NWB RLE - Lovenox for DVT prophy - PT/OT (2) Afib Current Visit: No Status: Acute Code(s): I48.91 - UNSPECIFIED ATRIAL FIBRILLATION SNOMED Code(s): 03830235 Comment: - Continue home diltiazem, toprol xl, ASA - Patient not on AC due to frequent falls (3) Alcohol abuse Status: Acute Code(s): F10.10 - ALCOHOL ABUSE, UNCOMPLICATED SNOMED Code(s) : 73314604 Comment: No acute withdrawal symptoms - has ativan PRN (4) COPD (chronic obstructive pulmonary disease) Status: Chronic Code(s): J44.9 - CHRONIC OBSTRUCTIVE PULMONARY DISEASE, UNSPECIFIED SNOMED Code(s): 75048006 Comment: continue dulera, albuterol neb as needed and spiriva - (5) Seizure disorder Status: Acute Code(s): G40.909 - EPILEPSY, UNSP, NOT INTRACTABLE, WITHOUT STATUS EPILEPTICUS SNOMED Code(s): 497053679 Comment: - Continue depakote and keppra (6) PAD (peripheral artery disease) Status: Acute Code(s): I73.9 - PERIPHERAL VASCULAR DISEASE, UNSPECIFIED SNOMED Code(s): 816167754 Comment: - chronic - continue pletal (7) DVT prophylaxis Status: Acute Code(s): SSG2574 - SNOMED Code(s): 654761406 Comment: lovenox (8) Full code status Status: Acute Code(s): Z78.9 - OTHER SPECIFIED HEALTH STATUS SNOMED Code(s) : 023199740 Status and Disposition: swing status
[2019-01-26] MEDS: Enoxaparin(*) 40 MG/0.4 ML SYR SUBCUT SCH (20:28)
[2019-01-26] MEDS: Nicotine Patch Removal NOTE PATCH OFF SCH (20:31)
[2019-01-26] MEDS: Acetaminophen TAB* 325 MG PO PRN (22:49)
[2019-01-27] MEDS: LORazepam TAB(*) 1 MG PO PRN (02:25)
[2019-01-27] MEDS: Levothyroxine TAB* 25 MCG TAB PO SCH (05:46)
[2019-01-27] MEDS: Mometasone/Formoter 100/5 MDI INH SCH ×2 (08:01→19:32)
[2019-01-27] MEDS: Tiotropium CAP.INH* CAP.INH/18 MCG (USE ORDER SET !) INH SCH (08:01)
[2019-01-27] MEDS: oxyCODONE TAB* 5 MG TAB PO PRN ×2 (10:48→19:14)
[2019-01-27] MEDS: Cilostazol TAB* 100 MG PO SCH ×2 (10:48→21:39)
[2019-01-27] MEDS: Metoprolol Succinate XL TAB* 25 MG PO SCH (10:49)
[2019-01-27] MEDS: Diltiazem CD CAP* 240 MG PO SCH (10:50)
[2019-01-27] MEDS: Digoxin TAB* 0.125 MG PO SCH (10:50)
[2019-01-27] MEDS: Folic Acid TAB* 1 MG PO SCH (10:50)
[2019-01-27] MEDS: Atorvastatin* 20 MG TAB PO SCH (10:50)
[2019-01-27] MEDS: Multivitamins/Minerals TAB PO SCH (10:51)
[2019-01-27] MEDS: Thiamine TAB* 100 MG TAB PO SCH (10:51)
[2019-01-27] MEDS: Aspirin EC TAB* 81 MG TAB.EC PO SCH (10:52)
[2019-01-27] MEDS: Sertraline* 100 MG TAB PO SCH (10:52)
[2019-01-27] MEDS: Tamsulosin CAP* 0.4 MG PO SCH (10:52)
[2019-01-27] MEDS: levETIRAcetam TAB* 500 MG PO SCH ×3 (10:53→21:38)
[2019-01-27] MEDS: Divalproex ER TAB(*) 500 MG PO SCH (10:54)
[2019-01-27] MEDS: Nicotine PATCH 21 MG/24 HR* PATCH TRANSDERM SCH (10:55)
--- NOTE | 2019-01-27 17:04 | CONS ---
CONSULTATION REPORT: DATE OF CONSULT: 01/27/19 ATTENDING PROVIDER: Kimberly Farrell NP. CONSULTATION PROVIDER: Loren Blackwell NP, in Psychiatry. JUSTIFICATION FOR CONSULTATION: Consultation regarding Cristhian Cortez's depression. HISTORY OF PRESENT ILLNESS: Cristhian is a 63-year-old white male who is disabled due to, he states, his depression. He is . He has many hospitalizations of psychiatric and physical nature and many non-admit ED presentations related to alcohol use and seizure disorder. He is currently on short stay due to a fractured ankle. Cristhian today says, "I am disabled for depression and now all these different diseases are running around inside me." He states his ankle fracture is the result of vascular disease and that occurred following his recovery over Father's Day weekend from a small [place]. He also states his seizures have not been under control until recently, but he declines to state what that date might be. He states he is fighting depression and he does not care any longer how long it will take to feel better, but he does indeed want to feel better. Cristhian has many complaints regarding his outpatient care including case management, insurance changes, benefits being mismanaged and falling down. Somehow, all of these things are related to him falling that is their lack of attending to his needs. He states his depression is "serious to the extent that Father's Day I thought it was a matter of getting a ceiling hook" to hang myself, but he stated he was stopped because he needed a drill to make the aircraft pilot hole for the ceiling hook. He states that to cope with these thoughts, he has been drinking a little bit and reading "esoterica." This he defines as Yuriy Benitez and Irma. He feels isolated and as if there is nowhere to turn. He states "I like to think that I sound distressed. People are so limited." He states he wants to see a psychologist and a therapist and that he needs both as much as he needs to see only 1 person. He says "I would like to touch on Rico...just to have a foundation to know who you're talking to in me." This is not a psychotic statement, rather it is a statement that reflects some narcissism in his character. Cristhian does admit that he is struggling with depression. He has in his past taken a variety of medications, which he is unwilling or unable to name. We will add Abilify 2 mg to the Zoloft 200 mg he is already taking, he is agreeable to this. PAST PSYCHIATRIC HISTORY: Cristhian has had many psychiatric hospitalizations, more than 12 at [facility]. The last admission on the [facility] was 01/08/18. He is supposed to have outpatient care at [facility], although he denies this being helpful. He states he recently fired Dr. Ne Mckeon and is supposed to be seeing Luis Carlos Basurto at the clinic. He finds this to be somewhat insulting. Previous diagnoses include bipolar disorder, alcohol use disorder, nicotine use disorder, cannabis dependence, major depressive disorder , and a variety of personality disorder traits. PAST MEDICAL HISTORY: Hypertension, SIADH, peripheral neuropathy, peripheral vascular disease, COPD, seizure disorder, head trauma, and atrial fibrillation. PAST SURGICAL HISTORY: Pacemaker, mitral valve replacement, cataract surgery. There is a planned vascular surgery on his ankle as well. MEDICATIONS: Previous medications include: 1. Risperdal. 2. Haloperidol. 3. Aripiprazole. 4. [place]. 5. Quetiapine. 6. Olanzapine. 7. Trazodone. 8. Lurasidone. 9. Mirtazapine. 10. Bupropion. 11. Sertraline. 12. Depakote. He has a history of many suicide attempts, the last one was in 2013. He denies any recent attempts since his last admission to the [facility]. Although, he did admit that in December, he was thinking of hanging himself. FAMILY PSYCHIATRIC HISTORY: Father with alcohol use disorder. Mother with depression. SOCIAL HISTORY: Cristhian was born and raised in [place] by both parents. He has 2 brothers and a sister. He graduated high school and has an associates degree in [employer]. He is . He has 3 children who are estranged from him. He lives in [place]. 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 He states he is not currently working. LEGAL HISTORY: Includes incarcerated for robbing a bank in 2007. He was on probation for 5 years and has a history of 1 DWI. He denies current probation on parole. HISTORY: None, due to lower tone deafness. SUBSTANCE ABUSE HISTORY: The patient has a history of alcoholism since the late . The patient has a history of alcoholism and reports current daily alcohol use, although he does minimize it at this time. He was sober for approximately 7 years in the early . The patient has a history of bath salts and cannabis use. He has been to rehab in [place] in 1994 and in [place] 1993. He has been referred to substance use rehab in [place] while hospitalized by this unit, but only stayed for a day or 2. He is a 1 to 2 -pack a day cigarette smoker. MENTAL STATUS EXAMINATION: Cristhain is a white male, who appears his stated age, who is lying in a hospital bed, covered in a blanket and he is clearly in pain from his right ankle. He is difficult to wake up, being a little confused at first, but becoming more aware and eventually chatting in an overly familiar fashion. He is alert and oriented x4. He is not wearing his glasses, so it is difficult to know how good his eye contact is. His speech is articulate. He is pleasant. His affect is congruent. His thought processes are normal. His thought content is negative for suicidality or homicidality. He denies HI or . He is not hallucinating. His concentration improves as we speak. His insight and judgment are fair to poor. DIAGNOSES: Bipolar I disorder, alcohol use disorder, cannabis use disorder, tobacco use disorder, antisocial personality disorder. ASSESSMENT: Cristhian is a 63-year-old white male with a history of bipolar disorder, polysubstance dependence, and antisocial personality disorder. He is currently staying on the short-stay unit to determine what surgeries are appropriate for the fracture of his right ankle. He is depressed and he complaints of depression, but he does want to be alive and he is ready for a long recovery into a lack of depression. RECOMMENDATIONS: Continue medical treatment. Start Abilify 2 mg to augment Zoloft 200 mg. Thank you for the interesting consult with Cristhian Dana. LOREN BLACKWELL, JEFFREY [id number]/[facility] #: [id number] [facility] HOSPITALMaria C
[2019-01-27] MEDS: Enoxaparin(*) 40 MG/0.4 ML SYR SUBCUT SCH (21:37)
[2019-01-27] MEDS: Nicotine Patch Removal NOTE PATCH OFF SCH (21:52)
[2019-01-28] MEDS: LORazepam TAB(*) 1 MG PO PRN ×2 (00:04→09:03)
[2019-01-28] MEDS: oxyCODONE TAB* 5 MG TAB PO PRN ×2 (03:33→13:38)
[2019-01-28] MEDS: Levothyroxine TAB* 25 MCG TAB PO SCH (05:12)
[2019-01-28 07:34] VITALS: BP 111/68
[2019-01-28] MEDS: Tiotropium CAP.INH* CAP.INH/18 MCG (USE ORDER SET !) INH SCH (08:25)
[2019-01-28] MEDS: Mometasone/Formoter 100/5 MDI INH SCH (08:26)
[2019-01-28] MEDS ORDERED: ARIPiprazole TAB* 5 MG PO SCH (09:00)
[2019-01-28] MEDS: Nicotine PATCH 21 MG/24 HR* PATCH TRANSDERM SCH (09:04)
[2019-01-28] MEDS: Multivitamins/Minerals TAB PO SCH (09:04)
[2019-01-28] MEDS: Sertraline* 100 MG TAB PO SCH (09:04)
[2019-01-28] MEDS: Folic Acid TAB* 1 MG PO SCH (09:05)
[2019-01-28] MEDS: Metoprolol Succinate XL TAB* 25 MG PO SCH (09:06)
[2019-01-28] MEDS: levETIRAcetam TAB* 500 MG PO SCH ×2 (09:07→13:39)
[2019-01-28] MEDS: Diltiazem CD CAP* 240 MG PO SCH (09:07)
[2019-01-28] MEDS: Thiamine TAB* 100 MG TAB PO SCH (09:07)
[2019-01-28] MEDS: Divalproex ER TAB(*) 500 MG PO SCH (09:08)
[2019-01-28] MEDS: Digoxin TAB* 0.125 MG PO SCH (09:09)
[2019-01-28] MEDS: Aspirin EC TAB* 81 MG TAB.EC PO SCH (09:11)
[2019-01-28] MEDS: Atorvastatin* 20 MG TAB PO SCH (09:11)
[2019-01-28] MEDS: Tamsulosin CAP* 0.4 MG PO SCH (09:11)
[2019-01-28] MEDS: Cilostazol TAB* 100 MG PO SCH (09:11)
--- NOTE | 2019-01-28 13:10 | DS ---
DISCHARGE SUMMARY: DATE OF ADMISSION: 01/20/19 DATE OF DISCHARGE TO [facility]: 01/23/19 DATE OF DISCHARGE TO [facility]: 01/28/19 PROVIDER: Kimberly Farrell NP. PRIMARY CARE PROVIDER: Dr. Lewis. ORTHOPEDIC ATTENDING: Dr. Moe. ATTENDING PHYSICIAN WHILE IN THE HOSPITAL: Dr. Augustine Aiken * (dictated by Kimberly Farrell NP). PRIMARY DIAGNOSES: 1. Closed right ankle fracture after a fall, status post open reduction internal fixation. 2. Alcoholic use disorder. SECONDARY DIAGNOSES: 1. Chronic obstructive pulmonary disease, not in exacerbation. 2. History of bipolar disorder. 3. History of seizure. 4. Hypertension. 5. Coronary artery disease. 6. Atrial fibrillation, not on anticoagulation. 7. Peripheral vascular disease with peripheral neuropathy. 8. History of bioprosthetic mitral valve replacement. STUDIES COMPLETED WHILE IN THE HOSPITAL: He had a foot x-ray on 01/19/19, which showed a medial and lateral malleolar fracture. He had a chest x-ray, prominence of interstitial markings consistent with chronic interstitial changes versus interstitial pulmonary edema, postsurgical changes, findings consistent with COPD. He had a repeat ankle x-ray on 01/23/19 postoperatively, internal fixation of the distal fibula and medial malleolus. DISCHARGE MEDICATIONS: 1. Tylenol 650 mg p.o. q.6 hours as needed for mild pain. 2. Albuterol nebulizers 2.5 mg inhaled every 6 hours as needed for shortness of breath. 3. Aspirin 81 mg p.o. daily. 4. Atorvastatin 20 mg p.o. daily. 5. Pletal 100 mg p.o. b.i.d. 6. Cyclobenzaprine 10 mg p.o. b.i.d. as needed for spasm. 7. Digoxin 0.125 mg p.o. daily. 8. Diltiazem 240 mg p.o. daily. 9. Divalproex ER tablet 1500 mg p.o. in the morning. 10. Docusate 100 mg p.o. b.i.d. as needed. 11. Lovenox 40 mg subcu q.24 hours. 12. Folic acid 1 mg p.o. daily. 13. Keppra 750 mg p.o. t.i.d. 14. Levothyroxine 25 mcg p.o. daily. 15. Lorazepam 1 mg p.o. q.8 hours as needed for anxiety. 16. Metoprolol XL 37.5 mg p.o. daily. 17. Dulera 2 puffs inhaled 2 times a day. 18. Multivitamin 1 tablet p.o. daily. 19. Nicotine patch 21 mg transdermal q.24 hours. 20. Oxycodone 10 mg p.o. q.8 hours as needed for severe pain. 21. MiraLAX 17 g p.o. daily. 22. Sertraline 200 mg p.o. daily. 23. Flomax 0.4 mg p.o. daily. 24. Thiamine 100 mg p.o. daily. 25. Spiriva 1 cap 18 mcg inhaled daily. 26. Abilify 5 mg p.o. daily, which was started on 01/27/19. HISTORY OF PRESENT ILLNESS AND HOSPITAL COURSE: Mr. Cortez is a 63-year-old gentleman with past medical history significant for COPD, tobacco use disorder, seizure disorder, bipolar, hypertension, coronary artery disease, mitral valve replacement, mitral valve regurg, atrial fibrillation, alcohol use disorder, who presented to the emergency room after a fall complaining of right lower extremity pain. He was found to have a bimalleolar fracture, which subsequently went under surgical repair with an ORIF of the right ankle by Dr. Moe on 01/21/19. Due to the patient's history of alcohol misuse, he was placed WAM protocol. He did not score during this hospitalization. The patient does have a history of COPD and has been under control during this hospitalization. In terms of atrial fibrillation and coronary artery disease, the patient was without chest pain or his atrial fibrillation. Due to the patient being a nonweightbearing, he is in need of skilled PT and at this time he is stable for discharge to [facility] for short term rehab. During this hospitalization, the patient was placed on swing status for pending placement into rehab. REVIEW OF SYSTEMS: The patient denies any fever or chills, denies any nausea, vomiting or chest pain, denies any shortness of breath, denies any abdominal pain, denies any cough or congestion, and denies any dysuria or urinary frequency. PHYSICAL EXAMINATION: General: The patient is alert and oriented x3. His speech is clear. HEENT: Head is atraumatic, normocephalic. Eyes: EOMs are intact. Sclerae anicteric and not pale. Oral mucosa appears to be moist. Neck is supple. Lungs are clear to auscultation bilaterally. No wheezes, rales or rhonchi. Cardiac: S1, S2, regular rate and rhythm. No murmurs, rubs or gallops. Abdomen: Soft and nontender. Bowel sounds are present x4. Extremities : He is able to move all 4 extremities. He is nonweightbearing to the right lower extremity. He does have a splint that is dry and intact. He is able to wiggle his toes and does have sensation in his right foot. Popliteal pulses +2 to the right lower extremity. Pedal pulses +1 to the left lower extremity. Neurologic: He is awake, alert, oriented x3. Speech is clear. Thought process is intact. There is no gross focal deficit. Skin is intact. DIAGNOSTIC STUDIES/LAB DATA: WBCs were 7.0, RBCs 3.89, hemoglobin 12.7, hematocrit was 36, platelet count was 139. Sodium 134, potassium 4.4, chloride was 99, CO2 was 31, creatinine was 0.73, BUN was 12, GFR was 108.5, glucose is 98. Hemoglobin A1c was 5.1, digoxin level on 01/19/19 was 1.3. DISPOSITION: At this time, the patient will be discharged to [facility]. CONDITION AT DISCHARGE: Stable. DISCHARGE PLAN: The patient will be discharged to [facility]. Vital Signs: Blood pressure 111/68, heart rate 60, respirations 16, O2 saturation 96% on room air, temperature 97.9. Mr. Cortez will be discharged to [facility]. No weightbearing to the right lower extremity. 1. Right ankle fracture, status post ORIF. The patient will be discharged to [facility] for inpatient rehab. He is nonweightbearing to the right lower extremity. He should continue on Lovenox 40 mg subcu daily. He should follow up with Dr. Moe in 10 to 14 days. He is to keep the splint clean and dry. He can continue pain medications as previously prescribed, Tylenol for mild-to- moderate pain and oxycodone for severe pain. 2. COPD. The patient should continue on Dulera and Spiriva, albuterol nebs as needed for shortness of breath. 3. History of CAD. The patient will continue on metoprolol 37.5 mg p.o. daily , aspirin 81 mg daily, and atorvastatin 20 mg p.o. daily, digoxin 0.125 mg p.o. daily, Cardizem 240 mg p.o. daily. 4. Bipolar anxiety. The patient was seen by Psychiatry during this hospitalization. Please refer to their note. They did recommend starting Abilify. The patient was started on 5 mg of Abilify, I guess on 01/27/19. He should continue on Abilify. 5. Seizure disorder. He should continue Depakote and Keppra as previously prescribed. 6. Hypothyroid. He should continue on Synthroid as previously prescribed. 7. Anxiety and depression. To continue Zoloft as previously prescribed. 8. Benign prostatic hypertrophy. He should continue on Flomax as previously prescribed. 9. FEN. He can have a heart healthy diet. 10. Followup. The patient should follow up with Dr. Moe in 10 to 14 days for further management of his right ankle fracture. He should follow up with his primary care provider in 1 to 2 weeks. The patient was instructed to return to the emergency room for any worsening pain, calf tenderness, shortness of breath or chest pain, or any other concerning symptoms. At this time, the patient is stable for discharge to [facility]. CONDITION AT DISCHARGE: Stable. DISPOSITION AT DISCHARGE: [facility]. I have discussed this with my attending, Dr. Augustine Aiken, he is in agreement with my plan. KIMBERLY FARRELL NP [id number]/[facility] #: [id number] YARIEL
== END 2019-01-28 14:10 | DRG 563 ==
LOC: SSU 13:37
PROVIDERS: ADMIT Internal Medicine; ATTEND Internal Medicine
DX: S82.841A Displaced bimalleolar fracture of right lower leg, initial encounter for closed fracture (principal); E22.2 Syndrome of inappropriate secretion of antidiuretic hormone; W18.30XA Fall on same level, unspecified, initial encounter; Y92.480 Sidewalk as the place of occurrence of the external cause; Y99.9 Unspecified external cause status; J44.9 Chronic obstructive pulmonary disease, unspecified; F10.20 Alcohol dependence, uncomplicated; F17.210 Nicotine dependence, cigarettes, uncomplicated; G40.909 Epilepsy, unspecified, not intractable, without status epilepticus; F31.9 Bipolar disorder, unspecified; F15.21 Other stimulant dependence, in remission; I10 Essential (primary) hypertension; Z75.1 Person awaiting admission to adequate facility elsewhere; F12.90 Cannabis use, unspecified, uncomplicated; 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native coronary artery without angina pectoris; F60.2 Antisocial personality disorder; I34.0 Nonrheumatic mitral (valve) insufficiency; I48.91 Unspecified atrial fibrillation; G62.9 Polyneuropathy, unspecified; Z95.2 Presence of prosthetic heart valve; Z79.1 Long term (current) use of non-steroidal anti-inflammatories (NSAID); Z79.82 Long term (current) use of aspirin; Z79.51 Long term (current) use of inhaled steroids; Z79.899 Other long term (current) drug therapy; Z81.1 Family history of alcohol abuse and dependence; Z81.8 Family history of other mental and behavioral disorders
CPT/HCPCS: 94640; 99406; A9270-GY; G8978-GP-CK; G8979-GP-CI; G8987-GO-CJ; G8988-GO-CI; J1650

== ENCOUNTER 2019-02-18 05:18 | Inpatient (IN) | payer MEDICARE, MEDICAID ==
[2019-02-18 06:16] LABS: ABS Eosinophils 0.1 10^3/ul (0-0.6); ABS Monocytes 0.7 10^3/ul (0-0.8); ABS Neutrophils 3.6 10^3/ul (1.5-7.7); Eosinophil % 2.6 %; Hematocrit 35 % (42-52); Hemoglobin 12.4 g/dL (14.0-18.0); Lymphocyte % 18.5 %; Mean Corpuscular HGB Conc 36 g/dL (31-36); Mean Corpuscular Hemoglobin 32 pg (27-31); Mean Corpuscular Volume 90 fL (80-94); Mean Platelet Volume 7.6 fL (7.4-10.4); Platelet Count 212 10^3/uL (150-450); Red Blood Count 3.86 10^6 /uL (4.18-5.48); Red Cell Distribution Width 16 % (10-15); White Blood Count 5.6 10^3/uL (3.5-10.8)
--- NOTE | 2019-02-18 06:31 | ED ---
Complex/Multi-Sys Presentation - HPI Summary HPI Summary: 64-year-old male presents with right leg pain today for the past month. He has a history of a fracture to the area. He is very lethargic and will not give many answers. He denies any chest pressures or shortness of breath. He denies any headache. He admits to all over body aches. He denies any increasing depression. He was falling asleep on exam. He states he did not drink much alcohol today. no drug use today per patient. states that right leg does hurt. history is limited due to AMS. per records hx of seizure and hepatic encephalopathy. when asked why he called EMS he is unable to say. - History Of Current Complaint Chief Complaint: EDExtremityLower Time Seen by Provider: 02/18/19 05:40 - Allergies/Home Medications Allergies/Adverse Reactions: Allergies Allergy/AdvReac Type Severity Reaction Status Date / Time No Known Allergies Allergy Verified 02/18/19 05:27 Home Medications: Home Medications Acetaminophen TAB* [Tylenol TAB*] 650 mg PO BID 02/18/19 [History Confirmed ] Cilostazol TAB* [Pletal TAB*] 200 mg PO DAILY 02/18/19 [History Confirmed ] Cyclobenzaprine TAB* [Flexeril 10 MG TAB*] 10 mg PO .2-3 PRN 02/18/19 [History Confirmed 02/18/19] Fluticasone NASAL SPRAY 50MCG* [Flonase NASAL SPRAY 50MCG*] 2 spray BOTH NARES DAILY 02/18/19 [History Confirmed 02/18/19] Fluticasone/Vilanterol MDI(NF) [Breo Ellipta MDI (NF)] 1 puff INH DAILY [History Confirmed 02/18/19] LORazepam TAB(*) [Ativan 1 MG TAB (*)] 2 mg PO BEDTIME PRN 02/18/19 [History Confirmed 02/18/19] Metoprolol Succinate XL TAB* [Toprol XL TAB*] 50 mg PO DAILY 02/18/19 [History Confirmed 02/18/19] Umeclidinium Brogue [Incruse Ellipta] 62.5 mcg INH DAILY 02/18/19 [History Confirmed 02/18/19] levETIRAcetam [Levetiracetam] 750 mg PO TID 02/18/19 [History Confirmed 02/18/19 ] oxyCODONE TAB* [Roxycodone TAB 5 mg*] 5 - 10 mg PO Q12HR PRN 02/18/19 [History Confirmed 02/18/19] PMH/Surg Hx/FS Hx/Imm Hx Endocrine/Hematology History: Reports: Hx Anticoagulant Therapy Denies: Hx Diabetes, Hx Thyroid Disease Cardiovascular History: Reports: Hx Auto Implanted Cardiovert Defib, Hx Hypertension, Hx Pacemaker/ICD - [employer] -GUIANDANT - NOT MR SAFE/ CONDITIONAL, Hx Peripheral Vascular Disease, Hx Valvular Heart Disease - Recent valve replacement surgery, Other Cardiovascular Problems/Disorders - Hx Atrial Fibrillation and was treatment with Warfarin which has been d/c'd Respiratory History: Reports: Hx Chronic Bronchitis, Hx Chronic Obstructive Pulmonary Disease (COPD), Other Respiratory Problems/Disorders - poss aspiration Denies: Hx Asthma History: Reports: Other Problems/Disorders - History of SIADH Denies: Hx Renal Disease Musculoskeletal History: Reports: Other Musculoskeletal History - peripheral neuropathy Denies: Hx Arthritis, Hx Osteoporosis Sensory History: Reports: Hx Cataracts Denies: Hx Contacts or Glasses, Hx Hearing Aid Opthamlomology History: Reports: Hx Cataracts Denies: Hx Contacts or Glasses Neurological History: Reports: Hx Seizures - seizure d/o, Other Neuro Impairments/Disorders - PERIPHERAL NEUROPATHY Denies: Hx Dementia Psychiatric History: Reports: Hx Anxiety, Hx Depression, Hx Panic Disorder, Hx Post Traumatic Stress Disorder, Hx Inpatient Treatment, Hx Community Mental Health Tx, Hx Bipolar Disorder, Hx Suicide Attempt, Hx of Violent Episodes Against Others, Hx Substance Abuse, Other Psychiatric Issues/Disorders - has had ECT treatment Denies: Hx Attention Deficit Hyperactivity Disorder, Hx Eating Disorder, Hx Schizophrenia - Surgical History Surgery Procedure, Year, and Place: CABG, PACEMAKER Hx Anesthesia Reactions: No - Immunization History Date of Tetanus Vaccine: PT STATES UNSURE Date of Influenza Vaccine: NONE Infectious Disease History: No Infectious Disease History: Reports: Hx Tuberculosis - hx of inactive TB Denies: Hx Clostridium Difficile, Hx Hepatitis, Hx Human Immunodeficiency Virus (HIV), Hx of Known/Suspected MRSA, Hx Shingles, Hx Known/Suspected VRE, Hx Known/Suspected VRSA, History Other Infectious Disease, Traveled Outside the [place] in Last 30 Days - Family History Known Family History: Positive: Other - Mother -- depression, Father -- EtOH abuse - Social History Alcohol Use: Daily Alcohol Amount: 6 beers and 1 pint Hx Substance Use: Yes Substance Use Type: Reports: Marijuana Substance Use Comment - Amount & Last Used: Last used Sunday Hx Tobacco Use: Yes Smoking Status (MU): Heavy Every Day Tobacco Smoker Type: Cigarettes Amount Used/How Often: 1/2 PPD Length of Time of Smoking/Using Tobacco: 40 YRS Have You Smoked in the Last Year: Yes Review of Systems Negative: Fever Negative: Chest Pain Negative: Shortness Of Breath Positive: Myalgia - right leg pain All Other Systems Reviewed And Are Negative: Yes Physical Exam Triage Information Reviewed: Yes Vital Signs On Initial Exam: Initial Vitals Temp Pulse Resp BP Pulse Ox 97.2 F 108 16 122/86 95 02/18/19 05:22 02/18/19 05:22 02/18/19 05:22 02/18/19 05:22 02/18/19 05:22 Vital Signs Reviewed: Yes Appearance: Positive: Well-Appearing Skin: Positive: Warm, Dry, Other Head/Face: Positive: Normal Head/Face Inspection Eyes: Positive: Normal, EOMI, ANGELINA, Conjunctiva Clear ENT: Positive: Normal ENT inspection, Pharynx normal, TMs normal Neck: Negative: Nuchal Rigidity Respiratory/Lung Sounds: Positive: Clear to Auscultation, Breath Sounds Present Cardiovascular: Positive: Normal, RRR Abdomen Description: Positive: Nontender, Soft Musculoskeletal: Positive: Other - cast on right leg, erythema with ulcer to right foot Neurological: Positive: Alert, Oriented to Person Place, Time, CN Intact II-III , Other - falls asleep during exam Psychiatric: Positive: Normal AVPU Assessment: Verbal (Reponds To) - Romaine Coma Scale Best Eye Response: 4 - Spontaneous Best Motor Response: 6 - Obeys Commands Best Verbal Response: 5 - Oriented Coma Scale Total: 15 Diagnostics - Vital Signs Vital Signs Temp Pulse Resp BP Pulse Ox 02/18/19 05:22 97.2 F 108 16 122/86 95 - Laboratory Lab Results: Lab Results 02/18/19 Range/Units 06:05 WBC 5.6 (3.5-10.8) 10^3/uL RBC 3.86 L (4.18-5.48) 10^6 /uL Hgb 12.4 L (14.0-18.0) g/dL Hct 35 L (42-52) % MCV 90 (80-94) fL MCH 32 H (27-31) pg MCHC 36 (31-36) g/dL RDW 16 H (10-15) % Plt Count 212 (150-450) 10^3/uL MPV 7.6 (7.4-10.4) fL Neut % (Auto) 65.4 % Lymph % (Auto) 18.5 % Imperial % (Auto) 12.8 % Eos % (Auto) 2.6 % Baso % (Auto) 0.7 % Absolute Neuts (auto) 3.6 (1.5-7.7) 10^3/ul Absolute Lymphs (auto) 1.0 (1.0-4.8) 10^3/ul Absolute Monos (auto) 0.7 (0-0.8) 10^3/ul Absolute Eos (auto) 0.1 (0-0.6) 10^3/ul Absolute Basos (auto) 0.0 (0-0.2) 10^3/ul Absolute Nucleated RBC 0.0 10^3/ul Nucleated RBC % 0.0 Result Diagrams: 02/18/19 06:05 02/18/19 06:00 Lab Statement: Any lab studies that have been ordered have been reviewed, and results considered in the medical decision making process. - Radiology chest Radiology Interpretation Completed By: Radiologist Summary of Radiographic Findings: IMPRESSION: 1. PROBABLE INTERSTITIAL PULMONARY EDEMA. 2. STABLE CARDIAC SILHOUETTE STATUS POST MIDLINE STERNOTOMY AND AVR. 3. LEFT CHEST WALL PACEMAKER. - CT brain CT Interpretation Completed By: Radiologist Summary of CT Findings: IMPRESSION: NO ACUTE INTRACRANIAL PATHOLOGY. - EKG No standard instances Cardiac Rate: NL EKG Rhythm: Atrial Fibrillation EKG Comparison: No Significant Change Summary of EKG Findings: a fib Re-Evaluation - Re-Evaluation First Eval Re-Evaluation Time: 08:00 Comment: still somnolent in room Second Eval Re-Evaluation Time: 09:45 Comment: appears more awake but continues to fall asleep in room Complex Multi-Symp Course/Dx Course Of Treatment: 64-year-old male presents with right leg pain today. He has a history of a fracture to the area. denies any abdominal pain or nausea. He denies any chest pressures or shortness of breath. He denies any headache. He admits to all over body aches. he states has all over body aches. He states he did not drink much alcohol today. no drug use today per patient. states that right leg does hurt. On exam patient is somnolent. is arousable to voice. He is alert and oriented. does not want to lift arms or legs while in room. cranial nerves intact. Has erythema undercast with ulcer onright foot. wbc normal. CT brain normal. chest xray normal. ekg a fib. crp elevated. urine no infection. ammonia is 69. o2 stats normal here and normal temp. as patent is altered discussed case with dr hewitt who agrees to admit. start patient on clindamycin for cellulitis right foot. unclear if AMS due to cellulitis or substance abuse although ETOH is zero. - Diagnoses Differential Diagnoses/HQI/PQRI: Metabolic Abnormality, Sepsis, Urinary Tract Infection Provider Diagnoses: Cellulitis of right foot, Altered mental status - Critical Care Time Critical Care Time: 30-74 min - 45 mins Discharge - Sign-Out/Discharge Documenting (check all that apply): Patient Departure - Discharge Plan Condition: Fair Disposition: ADMITTED TO [facility] - Billing Disposition and Condition Condition: FAIR Disposition: Admitted to [facility]
[2019-02-18 06:35] LABS: Troponin I 0.01 ng/mL (<0.04)
[2019-02-18 06:36] LABS: ALT 18 U/L (7-52); AST 21 U/L (13-39); Albumin 3.6 g/dL (3.2-5.2); Albumin/Globulin Ratio 1.3 (1-3); Alkaline Phosphatase 75 U/L (34-104); Anion Gap 10 mmol/L (2-11); BUN/Creatinine Ratio 9.6 (8-20); Blood Urea Nitrogen 8 mg/dL (6-24); C Reactive Protein 72.96 mg/L (<8.01); CO2 Carbon Dioxide 24 mmol/L (22-32); Chloride 96 mmol/L (101-111); Creatine Kinase 60 U/L (10-223); EGFR African American 112.9 (>60); EGFR Non-African American 93.3 (>60); Globulin 2.8 g/dL (2-4); Glucose 136 mg/dL (70-100); Magnesium 1.5 mg/dL (1.9-2.7); Potassium 3.6 mmol/L (3.5-5.0); Sodium 130 mmol/L (135-145); Total Protein 6.4 g/dL (6.4-8.9)
[2019-02-18 06:48] LABS: INR 1.2 (0.82-1.09)
[2019-02-18 06:51] LABS: Alcohol < 10 mg/dL (<10)
[2019-02-18 07:26] LABS: Urine Appearance Clear; Urine Bilirubin Negative (Negative); Urine Blood Negative (Negative); Urine Color Amber; Urine Glucose Negative (Negative); Urine Ketones Trace (Negative); Urine Nitrite Negative (Negative); Urine Protein Negative (Negative); Urine Specific Gravity 1.017 (1.010-1.030); Urine Urobilinogen Positive (Negative)
[2019-02-18 07:46] LABS: Urine Benzodiazepine Screen Presumptive Positive (None Detect); Urine Opiates Screen None Detected (None Detect)
[2019-02-18] MEDS ORDERED: NS 0.9% 1000 ML** 1,000 ML IV ONE (09:32)
[2019-02-18] MEDS ORDERED: Clindamycin 600 MG/D5W BAG(*) 600 MG/50 ML BAG IV ONE (09:32)
--- NOTE | 2019-02-18 10:46 | UC ---
- Progress Note Progress Note: A pH of the patient. Patient 64-year-old gentleman with a history of alcohol recurrent E Gregoria's for alcohol withdrawal seizures, alcohol intoxication, altered mental. Patient does have a cast to his right lower extremity for a tib -fib fracture that went to the OR. Patient presents today with mental status changes. Patient is arousable and alert and oriented but is very somnolent and falls asleep easily. Review of labs show vital signs are stable. Patient's labs are unremarkable non-concerning including his alcohol level is less than 0 , ammonia is 60, and his lactic is within normal limits. Patient does have a visible wounds between his great and second toe on the casted foot. Concern for area cellulitis. Little bit of drainage. CT of the head was negative After discussion with PA recommend patient have an ABG, wound culture, discussed with orthopedic regarding moving casted about the wound. Recommend patient be admitted to the hospitalist for persistent mental status changes as patient in the ED for 4 hours and continues to be somnolent. No concern for airway protection measures at this time. Course/Dx - Diagnoses Provider Diagnoses: Change in mental status Discharge - Sign-Out/Discharge Documenting (check all that apply): Patient Departure - Discharge Plan Condition: Fair Disposition: ADMITTED TO [facility] Referrals: Louie Lewis MD [Primary Care Provider] - - Billing Disposition and Condition Condition: FAIR Disposition: Admitted to [facility]
[2019-02-18] MEDS ORDERED: Clindamycin 600 MG IVPREMIX(* 600 MG/50 ML SDV IV ONE (11:00)
[2019-02-18] MEDS ORDERED: Thiamine INJ* 100 MG/ML 2 ML VIAL IM ONE (11:14)
[2019-02-18] MEDS ORDERED: NS 0.9% 1000 ML** 1,000 ML IV SCH (11:15)
[2019-02-18] MEDS ORDERED: Magnesium Sulfate IV* 3 GM in NS 0.9% 100 ML* 100 ML IVPB ONE (11:16)
[2019-02-18] MEDS ORDERED: Lorazepam PYXIS KEY PRN (11:21)
[2019-02-18] MEDS ORDERED: LORazepam INJ* 2 MG/ML 1 ML VIAL IV PUSH SCH (12:00)
[2019-02-18] MEDS ORDERED: Vancomycin(*) 1,250 MG in NS 0.9% 250 ML* 250 ML IVPB ONE (13:18)
[2019-02-18] MEDS ORDERED: Docusate CAP* 100 MG PO PRN (13:19)
[2019-02-18] MEDS: Nystatin SUSPENSION* 100000 UNITS/ML 5 ML UDC SWISH SWAL SCH ×3 (13:51→20:58)
[2019-02-18] MEDS ORDERED: Vancomycin per Pharmacy* NOTE FOLLOW UP SCH (14:00)
--- NOTE | 2019-02-18 14:34 | HP ---
CC: Dr. Louie Lewis * HISTORY AND PHYSICAL: DATE OF ADMISSION: 02/18/19 PRIMARY CARE PROVIDER: Dr. Louie Lewis. ATTENDING PHYSICIAN: Dr. Aurora Fitzgerald * (dictated by ISAC Mccoy). CHIEF COMPLAINT: "My leg hurts." HISTORY OF PRESENT ILLNESS: Mr. Cortez is a 64-year-old male with an extensive past medical history including CAD, AFib, hypertension, PVD, peripheral neuropathy, and recent ORIF of the right ankle on 01/21/19, who presented to the ER today with complaints of right leg pain. He was recently admitted to the hospital from 01/21/19 to 01/28/19 and had a right ankle ORIF with Dr. Moe. He followed up with Dr. Moe on 02/04/19 and was scheduled for another followup on 02/20/19. He still has a cast in place. Today, he comes to the ER with a small amount of confusion. Although he denies confusion , he is unable to remember that he had been to the doctors on 02/04/19, stating that his hospital visits are "too many to keep track of and I just really don't care." He is complaining of right ankle pain that he describes as a throbbing or aching. He states it is better with medication, although he states he is unable to get medication for it. He is unable to relay which medication relieves his pain. The patient notes that the pain is worse with falling, which he has done "a good amount" since being discharged. The patient admits to heavy alcohol use, stating he drinks about 1 L of liquor per day. He describes his pain as 9/10 right now and notes that it is constant. He does have numbness and tingling both in the right and left lower extremities and admits to a history of peripheral neuropathy. The patient denies chest pain, shortness of breath, headache, vision changes, cough, fever, abdominal pain, nausea, vomiting, diarrhea, constipation, or pain in the upper extremities. Again, he does have pain in the right lower extremity and no pain in the left lower extremity. While in the emergency department, the patient received a full workup. Vital signs were within normal limits. He has chronic mild normocytic anemia. The patient also has chronic hyponatremia. His magnesium is low and his ammonia level is elevated, as is his CRP. CT of the head revealed no acute intracranial pathology. EKG shows atrial fibrillation with right bundle-branch block. There is no change from previous EKGs. Chest x-ray shows probable pulmonary edema. In the ER, the patient was given 1 L of normal saline bolus and Cleocin 600 mg x1 dose. The hospitalist team was asked to evaluate the patient for admission. PAST MEDICAL HISTORY: 1. CAD, status post CABG. 2. Hypertension. 3. Atrial fibrillation. 4. COPD. 5. Seizures. 6. BPH. 7. PVD. 8. Valvular heart disease. 9. Peripheral neuropathy. 10. History of SIADH. 11. Extensive psychiatric history including depression, anxiety, PTSD, bipolar disorder, and inpatient psychiatric treatment. PAST SURGICAL HISTORY: CABG, PPM/AICD, right ORIF, hernia. HOME MEDICATIONS: 1. Acetaminophen 650 mg p.o. b.i.d. 2. Aripiprazole 5 mg p.o. daily. 3. Aspirin 81 mg p.o. daily. 4. Atorvastatin 20 mg p.o. daily. 5. Cilostazol 200 mg p.o. daily. 6. Cyclobenzaprine 10 mg p.o. p.r.n. spasm. 7. Digoxin 0.125 mg p.o. daily. 8. Diltiazem 240 mg p.o. daily. 9. Divalproex ER 1500 mg p.o. q.a.m. 10. Divalproex 1500 mg p.o. q.p.m. 11. Docusate 100 mg p.o. b.i.d. p.r.n. constipation. 12. Enoxaparin 40 mg p.o. subcu q.24 hours. 13. Fluticasone 2 sprays both nares daily. 14. Fluticasone/vilanterol 1 puff inhalation daily. 15. Levetiracetam 750 mg p.o. t.i.d. 16. Lorazepam 2 mg p.o. at bedtime p.r.n. anxiety. 17. Metoprolol succinate 50 mg p.o. daily. 18. Oxycodone 5 to 10 mg p.o. q.12 hours p.r.n. mild pain. 19. Sertraline 200 mg p.o. b.i.d. 20. Tamsulosin 0.4 mg p.o. daily. 21. Thiamine 100 mg p.o. daily. 22. Incruse Ellipta 62.5 mcg inhalation daily. DRUG ALLERGIES: No known drug allergies. FAMILY HISTORY: Mother had depression. Father had alcoholism. Unable to give any more information at this time. SOCIAL HISTORY: The patient smokes approximately 2 packs per day for 40 years. He drinks approximately 1 L of liquor per day. He lives home alone. In the event that he is unable to make his own medical decisions, he has appointed his friend Kirstin Dominguez to be his surrogate decision maker. REVIEW OF SYSTEMS: A 10-point review of systems has been performed and all the pertinent positives and negatives are in the HPI. All other systems are negative. PHYSICAL EXAMINATION GENERAL: Mr. Cortez is a well-developed, well-nourished, normal weight, 64- year- old white male who has slow speech which he states is chronic as well as a right eye droop which is also chronic. He appears somewhat older than his stated age. He is cooperative, appropriate, and oriented. VITAL SIGNS: Temperature 97.2 temporal, heart rate 98, respiratory rate 21, oxygen saturation 98% on room air, blood pressure 163/95. HEENT: PERRL. EOMI. Nonicteric sclerae. Hearing grossly intact. Oral mucous membranes are moist. There is a patchy white coating on the uvula and posterior pharynx. RESPIRATORY: Symmetrical chest expansion without use of accessory muscles. Lungs are clear to auscultation bilaterally without rhonchi, wheezes, or rales. There is no digital clubbing or cyanosis. CARDIOVASCULAR: Regular rate, irregular rhythm. S1, S2 present without murmurs , rubs, clicks, or gallops. There is no JVD. Radial pulses palpable. Left lower extremity pulse faint but palpable. Right lower extremity in cast, unable to assess. Cap refill within 2 seconds bilaterally to lower extremities. No peripheral edema. ABDOMEN: Flat. Bowel sounds in all quadrants. The abdomen is soft without tenderness to palpation. MUSCULOSKELETAL: The right lower extremity has a long cast from the ankle to two- thirds up the calf. The protruding toes are erythematous and slightly edematous. They are warm. Capillary refill is intact. The patient is able to move the toes on both sides. The patient has decreased sensation bilaterally to the lower extremities. NEURO: The patient is awake. He is alert and oriented x3 with cranial nerves grossly intact. He is able to move upper extremities and left lower extremity. Right lower extremity movement is restricted by casting on the ankle. Motor strength is 5/5 in the upper and lower extremities. DIAGNOSTIC STUDIES/LAB DATA: HGB 12.4, HCT 35. Sodium 130, magnesium 1.5, ammonia 69. CRP 72.96. Serum alcohol less than 10. Urine cannabis, urine benzodiazepine presumptive positive. Brain CT, impression: No acute intracranial pathology. Chest x-ray, impression: Probable interstitial pulmonary edema. Stable cardiac silhouette, status post midline sternotomy and AVR. Left chest wall pacemaker. ASSESSMENT AND PLAN: Mr. Cortez is a 64-year-old male with a past medical history of coronary artery disease, hypertension, atrial fibrillation, peripheral vascular disease, alcohol abuse, and right ankle ORIF on 01/21/[address] with cast still in place, who presented to the ER today with complaints of right ankle pain, swelling and redness. The patient will be admitted inpatient for: 1. Right foot cellulitis. The patient had a right ORIF on 01/21/19, with followup with Dr. Moe on 02/04/19. He was scheduled for another appointment this . He still has a cast in place. He does have a history of heavy alcohol use, which has resulted in multiple falls, which he believes has worsened his ankle pain. He presents with erythema and edema to the visible distal R foot. At this point, we have consulted Ortho for removal of the cast to get a better look at the right ankle and lower extremity. Ultrasound of the right lower extremity has been ordered to evaluate for blood clot. Gentle IV hydration has been ordered. Wound and blood cultures have been obtained. We will repeat wound cultures if there is an open weeping wound underneath the cast. The patient received Cleocin in the ER. We will continue him on cefepime , vancomycin, and Flagyl. There may be a need for PT/OT evaluation in the future. 2. Altered mental status. The patient reportedly has altered mental status. He is alert and oriented x3 in the ER, but is somewhat lethargic with some slow speech, which he states is chronic. Altered mental status could be due to alcohol use or infection. He reports his last use of alcohol was last night and alcohol level was less than 10. He does have a presumed cellulitis to the right foot, which could be contributing. He also is noted to have an elevated ammonia level. We will start him on lactulose t.i.d. and continue to monitor this. 3. Oral candidal infection. The patient has patchy white areas in the posterior pharynx presumed to be candidal infection. We have ordered nystatin swish and swallow. 4. Alcohol abuse. The patient has a history of use of 1 L of liquor per day. He will be placed on [place] protocol. 5. Hypomagnesemia. The patient has a magnesium of 1.5. This will be repleted. 6. Chronic obstructive pulmonary disease. Continue home medications, Breo Ellipta and Incruse Ellipta. 7. Hypertension. Continue home medications, Cardizem, Toprol-XL. 8. Atrial fibrillation. Continue Toprol and Cardizem. Continue digoxin. 9. Seizure. Continue home medications. Continue levetiracetam 750 p.o. t.i.d. 10. Coronary artery disease. Continue Lipitor and aspirin. 11. Psychiatric history. Continue home medications, Abilify, Depakote, Ativan. 12. Tobacco abuse. Nicotine patch has been ordered. The patient is currently refusing, but this will be placed as an order if he changes his mind. 13. DVT prophylaxis: According to the DVT Risk Assessment, the patient scores 4, placing him at high risk. I will hold chemoprophylaxis at this point until his cast is removed and we ensure that there is no need for intervention surgically. Also holding SCDs in the setting of cellulitis to the right lower extremity. 14. Code status: Full code. TIME SPENT: Approximately 60 minutes was spent on this admission, greater than half that time was spent [id number] with the patient obtaining history, performing physical, and reviewing the plan of care. The case has been reviewed with my attending Dr. Fitzgerald, who is in agreement with the plan of care. ISAC CHAMBERS [id number]/[facility] #: [id number] YARIEL
[2019-02-18] MEDS ORDERED: CMCS: Levetiracetam XR TAB(NF) 750 MG TAB.XR PO SCH (15:30)
[2019-02-18] MEDS: Cefepime 2 GM in Dextrose(*) 2 GM/50 ML BAG IV SCH (17:26)
[2019-02-18] MEDS: levETIRAcetam TAB* 500 MG PO SCH ×2 (17:27→20:58)
[2019-02-18] MEDS: metroNIDAZOLE IV 500 MG/100ML* 500 MG/100 ML BAG IVPB SCH (18:41)
[2019-02-18] MEDS: Cilostazol TAB* 100 MG PO SCH (20:58)
[2019-02-18] MEDS: Nicotine Patch Removal NOTE FOLLOW UP SCH (21:05)
[2019-02-18] MEDS: Vancomycin(*) 1,000 MG in NS 0.9% 250 ML* 250 ML IVPB SCH (22:35)
[2019-02-19] MEDS: metroNIDAZOLE IV 500 MG/100ML* 500 MG/100 ML BAG IVPB SCH ×2 (01:13→10:42)
[2019-02-19] MEDS: oxyCODONE TAB* 5 MG TAB PO PRN ×2 (02:17→14:14)
[2019-02-19] MEDS: Cefepime 2 GM in Dextrose(*) 2 GM/50 ML BAG IV SCH ×2 (04:18→16:36)
[2019-02-19] MEDS: Vancomycin(*) 1,000 MG in NS 0.9% 250 ML* 250 ML IVPB SCH ×2 (05:33→14:14)
[2019-02-19 07:01] LABS: ABS Eosinophils 0.2 10^3/ul (0-0.6); ABS Monocytes 0.7 10^3/ul (0-0.8); Eosinophil % 4.2 %; Hematocrit 39 % (42-52); Hemoglobin 13.4 g/dL (14.0-18.0); Lymphocyte % 16.9 %; Mean Corpuscular HGB Conc 34 g/dL (31-36); Mean Corpuscular Hemoglobin 32 pg (27-31); Mean Corpuscular Volume 91 fL (80-94); Mean Platelet Volume 7.9 fL (7.4-10.4); Nucleated Red Blood Cells % 0.1; Platelet Count 190 10^3/uL (150-450); Red Blood Count 4.27 10^6 /uL (4.18-5.48); Red Cell Distribution Width 16 % (10-15)
[2019-02-19 07:16] LABS: BUN/Creatinine Ratio 8.5 (8-20); Calcium 9.1 mg/dL (8.6-10.3); EGFR African American 135.2 (>60); EGFR Non-African American 111.7 (>60); Magnesium 1.9 mg/dL (1.9-2.7); Potassium 3.8 mmol/L (3.5-5.0)
[2019-02-19] MEDS: Mometasone/Formoter 100/5 MDI INH SCH ×2 (07:34→19:49)
[2019-02-19] MEDS: SPIRIVA Respimat* (tiotropium) 2.5 mcg/inh Inhaler INH SCH (07:35)
[2019-02-19] MEDS ORDERED: Divalproex ER TAB(*) 500 MG PO SCH (09:00)
[2019-02-19] MEDS: Fluticasone NASAL SPRAY 50MCG* 16 gm SPRAY BTL BOTH NARES SCH (09:46)
[2019-02-19] MEDS: Nicotine PATCH 21 MG/24 HR* PATCH TRANSDERM SCH (09:47)
[2019-02-19] MEDS: Nystatin SUSPENSION* 100000 UNITS/ML 5 ML UDC SWISH SWAL SCH ×4 (09:47→23:47)
[2019-02-19] MEDS: Cilostazol TAB* 100 MG PO SCH ×2 (09:51→23:47)
[2019-02-19] MEDS: Multivitamins/Minerals TAB PO SCH (09:51)
[2019-02-19] MEDS: Folic Acid TAB* 1 MG PO SCH (09:51)
[2019-02-19] MEDS: Divalproex ER TAB(*) 500 MG PO SCH (09:51)
[2019-02-19] MEDS: ARIPiprazole TAB* 5 MG PO SCH (09:51)
[2019-02-19] MEDS: Aspirin EC TAB* 81 MG TAB.EC PO SCH (09:52)
[2019-02-19] MEDS: Thiamine TAB* 100 MG TAB PO SCH (09:52)
[2019-02-19] MEDS: Tamsulosin CAP* 0.4 MG PO SCH (09:52)
[2019-02-19] MEDS: Metoprolol Succinate XL TAB* 50 MG PO SCH (09:52)
[2019-02-19] MEDS: Atorvastatin* 20 MG TAB PO SCH (09:52)
[2019-02-19] MEDS: levETIRAcetam TAB* 500 MG PO SCH ×3 (09:52→23:46)
[2019-02-19] MEDS: Digoxin TAB* 0.125 MG PO SCH (09:53)
[2019-02-19] MEDS: Sertraline* 100 MG TAB PO SCH (09:53)
[2019-02-19] MEDS: Diltiazem CD CAP* 240 MG PO SCH (09:53)
[2019-02-19] MEDS: Acetaminophen TAB* 325 MG PO PRN ×2 (09:53→21:19)
--- NOTE | 2019-02-19 14:09 | PN ---
Progress Note - Progress Note Date of Service: 02/19/19 Note: Please see full dictated note for further details. Cast was removed today, he has a superficial dime sized ulcer on the dorsal surface over the MTP with surrounding erythema. This should be treated with wound care, betadine wet to dry dressings. Continue antibiotics. Boot placed, patient should remain NWB and follow up with ortho when discharged. Ortho will follow while in house.
--- NOTE | 2019-02-19 16:38 | PN ---
Subjective Date of Service: 02/19/19 Interval History: Mr. Cortez is not feeling well today. He is having constant right foot pain. Rates it 10/10 at the worst, 6/10 at the best. Pain meds are somewhat helpful. Denies CP, SOB, N/V. He is concerned that he needs more help at home and needs someone to cook and run errands for him. Nursing reports that he is asking for pain meds frequently. Family History: Unchanged from Admission Social History: Unchanged from Admission Past Medical History: Unchanged from Admission Objective Active Medications: Acetaminophen (Tylenol Tab*) 650 mg PO Q4H PRN pain- mild, fever Aripiprazole (Abilify Tab*) 5 mg PO DAILY ARIANNE Aspirin (Aspirin Ec Tab*) 81 mg PO DAILY [facility] Atorvastatin Calcium (Lipitor*) 20 mg PO DAILY [facility] Cilostazol (Pletal Tab*) 50 mg PO BID ARIANNE Digoxin (Lanoxin Tab*) 0.125 mg PO DAILY [facility] Diltiazem HCl (Cardizem Cd Cap*) 240 mg PO DAILY [facility] Divalproex Sodium (Depakote Er Tab(*)) 1,500 mg PO QAM ARIANNE Docusate Sodium (Colace Cap*) 100 mg PO BID PRN CONSTIPATION Fluticasone Propionate (Flonase Nasal [place] 50mcg*) 2 spray BOTH NARES DAILY [facility] Folic Acid (Folvite Tab*) 1 mg PO DAILY [facility] Heparin Sodium (Porcine) (Heparin Vial(*)) 5,000 units SUBCUT Q8HR [facility]ANNE Cefepime HCl (Maxipime 2 Gm In Dextrose Duplex (*)) 2 gm in 50 mls @ 100 mls/ hr IV Q12H ARIANNE Metronidazole/Sodium Chloride (Flagyl 500 Mg Ivpb*) 500 mg in 100 mls @ 100 mls /hr IVPB Q8H [facility]ANNE Lactulose (Lactulose*) 30 ml PO TID ARIANNE Levetiracetam (Keppra Tab*) 750 mg PO TID ARIANNE; Protocol Lorazepam (Ativan Inj*) 0 - 3 mg IV PUSH .PER WAM PROTOCOL ARIANNE; Protocol Metoprolol Succinate (Toprol Xl Tab*) 50 mg PO DAILY [facility] Mometasone Furoate/Formoterol Fumar (Dulera 100/5 Mdi*) 2 puff INH BID ARIANNE Multivitamins/Minerals (Theragran/Minerals Tab*) 1 tab PO DAILY [facility] Nicotine (Nicotine Patch 21 Mg/24 Hr*) 1 patch TRANSDERM DAILY [facility] Nystatin (Nystatin Suspension*) 500,000 units SWISH SWAL QID [facility] Oxycodone HCl (Roxycodone Tab*) 5 mg PO Q12HR PRN PAIN - MILD Sertraline HCl (Zoloft*) 200 mg PO DAILY [facility] Tamsulosin HCl (Flomax Cap*) 0.4 mg PO DAILY [facility] Thiamine HCl (Vitamin B-1 Tab*) 100 mg PO DAILY [facility] Tiotropium [place] (Spiriva Respimat 2.5 Mcg) 2 puff INH DAILY [facility] Vital Signs - 8 hr 02/19/19 02/19/19 02/19/19 09:53 10:06 14:00 Temperature 97.2 F 97.7 F Pulse Rate 76 108 99 Respiratory 20 19 Rate Blood Pressure 150/73 146/89 (mmHg) O2 Sat by Pulse 100 100 Oximetry Oxygen Devices in Use Now: None Appearance: Middle-aged male sitting in bed in NAD Eyes: No Scleral Icterus Ears/Nose/Mouth/Throat: Mucous Membranes Moist Neck: NL Appearance and Movements; NL JVP, Trachea Midline Respiratory: Symmetrical Chest Expansion and Respiratory Effort, Clear to Auscultation Cardiovascular: NL Sounds; No Murmurs; No JVD, RRR Abdominal: NL Sounds; No Tenderness; No Distention Skin: - - Dressing and walking boot to right foot Neurological: Alert and Oriented x 3 Lines/Tubes/Other Access: Clean, Dry and Intact Peripheral IV Nutrition: Taking PO's Result Diagrams: 02/19/19 06:45 02/19/19 06:45 Assess/Plan/Problems-Billing Assessment: Mr. Cortez is a 64 yo M with PMH of CAD, HTN, afib, COPD, seizures, PVD, neuropathy, and multiple psych disorders; who underwent a R ankle ORIF on , now presenting with R leg pain and found to have cellulitis. - Patient Problems (1) Cellulitis of right foot Code(s): L03.115 - CELLULITIS OF RIGHT LOWER LIMB Comment: - S/p right ankle ORIF with Dr. Moe on 01/20/19 - Cast removed today by Ortho revealing dime sized ulcer on dorsal foot - Wound culture growing Acinetobacter, sensitivities pending - Appreciate Ortho consult; they will continue to follow - Continue cefepime; d/c vanco and Flagyl (2) Hyperammonemia Code(s): E72.20 - DISORDER OF UREA CYCLE METABOLISM, UNSPECIFIED Comment: - Unclear etiology as LFTs are normal - Check liver US - Continue lactulose (3) Alcohol abuse Code(s): F10.10 - ALCOHOL ABUSE, UNCOMPLICATED Comment: - [facility] protocol - Continue lorazepam, folic acid, multivitamin, thiamine (4) Oral fermin Code(s): B37.0 - CANDIDAL STOMATITIS Comment: - Continue nystatin (5) HTN (hypertension) Code(s): I10 - ESSENTIAL (PRIMARY) HYPERTENSION Comment: - Slightly hypertensive, SBP 140-150s - Continue metoprolol, diltiazem (6) PAD (peripheral artery disease) Code(s): I73.9 - PERIPHERAL VASCULAR DISEASE, UNSPECIFIED Comment: - Continue Pletal (7) Afib Code(s): I48.91 - UNSPECIFIED ATRIAL FIBRILLATION Comment: - Rate controlled - Continue digoxin, diltiazem, metoprolol (8) CAD (coronary artery disease) Comment: - Continue aspirin, atorvastatin, metoprolol (9) COPD (chronic obstructive pulmonary disease) Code(s): J44.9 - CHRONIC OBSTRUCTIVE PULMONARY DISEASE, UNSPECIFIED Comment: - Continue Dulera, Spiriva (10) Seizure disorder Code(s): G40.909 - EPILEPSY, UNSP, NOT INTRACTABLE, WITHOUT STATUS EPILEPTICUS Comment: - Continue Depakote, Keppra (11) Psychiatric disorder Code(s): F99 - MENTAL DISORDER, NOT OTHERWISE SPECIFIED Comment: - Continue Abilify, sertraline (12) DVT prophylaxis Comment: - Heparin SQ (13) Full code status Code(s): Z78.9 - OTHER SPECIFIED HEALTH STATUS Comment: Status and Disposition: Inpatient. Anticipate d/c home when medically stable. Attending: Danielle Leonard
--- NOTE | 2019-02-19 19:21 | CONS ---
CONSULTATION NOTE: DATE OF CONSULT: 02/19/19 CHIEF COMPLAINT: Right foot pain. ATTENDING ORTHOPEDIC PROVIDER: Dr. Edwin Hernandez. HISTORY OF PRESENT ILLNESS: The patient is a 64-year-old male who presented to the emergency room on 02/18/19 for alcohol withdrawal seizures, alcohol intoxication, altered mental status, and right foot pain. He was noted to have a cast in his right lower extremity with obvious erythema of the toes. He had an ORIF of the right ankle in mid January with Dr. Moe. He had a followup appointment with Dr. Moe, 02/04/19, and a scheduled followup appointment on 02/20/19. His cast is still in place. Today, on seeing him, he reports that he has pain of his right foot that is sharp, worse with movement of the toes. He has been walking on the RLE essentially since his surgery despite nonweightbearing status. PAST MEDICAL HISTORY: CAD, status post CABG, hypertension, AFib, COPD, seizures , BPH, PVD, valvular heart disease, peripheral neuropathy, SIADH, depression, anxiety, PTSD, bipolar disorder, and inpatient psychiatric treatment. PAST SURGICAL HISTORY: CABG, PPM/AICD, right ORIF, hernia. ALLERGIES: No known drug allergies. FAMILY HISTORY: Mother with depression, father alcoholism. SOCIAL HISTORY: The patient smokes 2 packs per day x40 years, drinks 1 L of liquor per day. Lives at home alone. REVIEW OF SYSTEMS: The patient is not answering my questions appropriately to get a pertinent review of systems. PHYSICAL EXAM: General: The patient is cooperative and alert, but tangential. He is in no acute distress. Vital Signs: Temperature 97.6, heart rate 86, respiratory rate 16, oxygen saturation 99, blood pressure 141/75. HEENT: Extraocular movements intact. Normocephalic, atraumatic. Respiratory: Normal rate and effort of breathing. Musculoskeletal: Right lower extremity in a short- leg cast which I removed. The patient tolerated this well. There is a dime-sized ulcer on the dorsum of the first MTP. There is surrounding erythema of the forefoot. He is able to flex and extend all MTPs with only mild pain with flexion and extension of the first MTP. Otherwise, not painful. Capillary refill less than 2 seconds distally. He does not have a palpable DP pulse. Sensation intact to light touch distally. DIAGNOSTIC STUDIES/LAB DATA: X-rays completed of the right ankle, show no obvious hardware failure or osteolysis. ASSESSMENT: Cellulitis and ulceration of the right foot. PLAN: A Betadine wet-to-dry dressing was placed over the ulceration. This should be changed daily until healed. He should continue antibiotics per the hospitalist service. He should maintain nonweightbearing status on the right lower extremity. I placed a boot so that wound and erythema can be easily monitored. Discussed with Dr. Hernandez who agrees with this plan. ISAC MORROW [id number]/[facility] #: [id number] YARIEL
[2019-02-19] MEDS: Heparin VIAL(*) 5000 UNITS/ML VIAL (FIVE THOUSAND) SUBCUT SCH (23:48)
[2019-02-19] MEDS: Nicotine Patch Removal NOTE FOLLOW UP SCH (23:48)
[2019-02-20] MEDS: oxyCODONE TAB* 5 MG TAB PO PRN ×2 (02:32→19:19)
[2019-02-20] MEDS: Cefepime 2 GM in Dextrose(*) 2 GM/50 ML BAG IV SCH ×2 (04:23→16:49)
[2019-02-20] MEDS ORDERED: Vancomycin Trough Check NOTE FOLLOW UP ONE (05:30)
[2019-02-20] MEDS: Heparin VIAL(*) 5000 UNITS/ML VIAL (FIVE THOUSAND) SUBCUT SCH ×3 (07:15→21:42)
[2019-02-20] MEDS: SPIRIVA Respimat* (tiotropium) 2.5 mcg/inh Inhaler INH SCH (08:01)
[2019-02-20] MEDS: Mometasone/Formoter 100/5 MDI INH SCH ×2 (08:02→19:25)
[2019-02-20 10:26] LABS: ABS Eosinophils 0.2 10^3/ul (0-0.6); ABS Lymphocytes 0.9 10^3/ul (1.0-4.8); ABS Monocytes 0.7 10^3/ul (0-0.8); ABS Neutrophils 2.9 10^3/ul (1.5-7.7); Eosinophil % 4.6 %; Hematocrit 36 % (42-52); Hemoglobin 12.6 g/dL (14.0-18.0); Lymphocyte % 19.5 %; Mean Corpuscular HGB Conc 35 g/dL (31-36); Mean Corpuscular Hemoglobin 32 pg (27-31); Mean Corpuscular Volume 90 fL (80-94); Mean Platelet Volume 7.5 fL (7.4-10.4); Nucleated Red Blood Cells % 0.1; Platelet Count 189 10^3/uL (150-450); Red Blood Count 3.98 10^6 /uL (4.18-5.48); Red Cell Distribution Width 16 % (10-15); White Blood Count 4.8 10^3/uL (3.5-10.8)
[2019-02-20 10:47] LABS: BUN/Creatinine Ratio 5.8 (8-20); Calcium 8.7 mg/dL (8.6-10.3); EGFR African American 139.7 (>60); EGFR Non-African American 115.4 (>60); Potassium 3.9 mmol/L (3.5-5.0)
[2019-02-20] MEDS: ARIPiprazole TAB* 5 MG PO SCH (11:09)
[2019-02-20] MEDS: Cilostazol TAB* 100 MG PO SCH ×2 (11:09→21:47)
[2019-02-20] MEDS: Metoprolol Succinate XL TAB* 50 MG PO SCH (11:09)
[2019-02-20] MEDS: Aspirin EC TAB* 81 MG TAB.EC PO SCH (11:09)
[2019-02-20] MEDS: Multivitamins/Minerals TAB PO SCH (11:09)
[2019-02-20] MEDS: Diltiazem CD CAP* 240 MG PO SCH (11:09)
[2019-02-20] MEDS: Folic Acid TAB* 1 MG PO SCH (11:09)
[2019-02-20] MEDS: Sertraline* 100 MG TAB PO SCH (11:09)
[2019-02-20] MEDS: Thiamine TAB* 100 MG TAB PO SCH (11:10)
[2019-02-20] MEDS: Divalproex ER TAB(*) 500 MG PO SCH (11:10)
[2019-02-20] MEDS: Tamsulosin CAP* 0.4 MG PO SCH (11:10)
[2019-02-20] MEDS: Digoxin TAB* 0.125 MG PO SCH (11:10)
[2019-02-20] MEDS: Atorvastatin* 20 MG TAB PO SCH (11:10)
[2019-02-20] MEDS: Fluticasone NASAL SPRAY 50MCG* 16 gm SPRAY BTL BOTH NARES SCH (11:14)
[2019-02-20] MEDS: Nicotine PATCH 21 MG/24 HR* PATCH TRANSDERM SCH (11:15)
[2019-02-20] MEDS: levETIRAcetam TAB* 500 MG PO SCH ×3 (11:20→21:47)
[2019-02-20] MEDS: Nystatin SUSPENSION* 100000 UNITS/ML 5 ML UDC SWISH SWAL SCH ×4 (11:22→21:42)
--- NOTE | 2019-02-20 13:52 | PN ---
Progress Note - Progress Note Date of Service: 02/20/19 SOAP: Subjective: Pt seen at bedside for right foot cellulitis and great toe ulcer from cast. States that he still has moderate pain but improved significantly from time of admission. Denies f/c. Denies CP/SOB. Objective: Vital Signs: Temp Pulse Resp BP Pulse Ox 97.8 F 77 18 160/82 100 02/20/19 13:07 02/20/19 13:07 02/20/19 13:07 02/20/19 13:07 02/20/19 13:07 Gen: A&Ox3, NAD at rest laying in bed RLE: Incision to medial and lateral ankle well healed. No erythema. 1 cm round ulcer to dorsal 1st MTP joint, dry, very minimal erythema surrounding. TTP over MTP joint but able to flex and extend. Sensation intact, DP 2+ Labs: Microbiology 02/18/19 10:45 Wound - Other Skin and Soft Tissue MRSA/MSSA (PCR - Final Mrsa Negative S.aureus Negative 02/18/19 10:45 Wound - Other Gram Stain - Final 02/18/19 10:45 Wound - Other Wound Culture - Preliminary Acinetobacter Haemolyticus 02/18/19 10:05 Foot Right Skin and Soft Tissue MRSA/MSSA (PCR - Final Mrsa Negative S.aureus Negative 02/18/19 10:05 Foot Right Gram Stain - Final 02/18/19 10:05 Foot Right Wound Culture - Preliminary Acinetobacter Haemolyticus 02/18/19 10:36 Blood Venous Aerobic Blood Culture - Preliminary No Growth Day 2 02/18/19 10:36 Blood Venous Anaerobic Blood Culture - Preliminary No Growth Day 2 02/18/19 10:32 Blood Venous Aerobic Blood Culture - Preliminary No Growth Day 2 02/18/19 10:32 Blood Venous Anaerobic Blood Culture - Preliminary No Growth Day 2 Assessment: Right foot cellulitis, improving Plan: D/C per hospitalist, pt appears to be improving clinically Cont NWB RLE with tall boot on F/u with Dr. Moe in 1-2 weeks
--- NOTE | 2019-02-20 16:26 | PN ---
Subjective Date of Service: 02/20/19 Interval History: Received call from Pharmacy staff that patient was talking about leaving AMA as he does not believe he is getting the same dosing of Ativan and Oxycodone that he takes at home. On assessment patient is resting in bed. He appears to be in no acute distressed. He is pleasant and cooperative. He reports pain n RLE is consistently a "6" out of 10. He denies numbness/tingling, calf pain, weakness, cp, sob, fever, chills. Family History: Unchanged from Admission Social History: Unchanged from Admission Past Medical History: Unchanged from Admission Objective Active Medications: Acetaminophen (Tylenol Tab*) 650 mg PO Q4H PRN PRN Reason: pain- mild, fever Last Admin: 02/19/19 21:19 Dose: 650 mg Aripiprazole (Abilify Tab*) [address] [facility] Last Admin: 02/20/19 11:09 Dose: 5 mg Aspirin (Aspirin Ec Tab*) [address] [facility] Last Admin: 02/20/19 11:09 Dose: 81 mg Atorvastatin Calcium (Lipitor*) [address] [facility] Last Admin: 02/20/19 11:10 Dose: 20 mg Cilostazol (Pletal Tab*) [address] [facility] Last Admin: 02/20/19 11:09 Dose: 50 mg Digoxin (Lanoxin Tab*) 0.[address] [facility] Last Admin: 02/20/19 11:10 Dose: 0.125 mg Diltiazem HCl (Cardizem Cd Cap*) [address] [facility] Last Admin: 02/20/19 11:09 Dose: 240 mg Divalproex Sodium (Depakote Er Tab(*)) 1,[address] [facility] Last Admin: 02/20/19 11:10 Dose: 1,500 mg Docusate Sodium (Colace Cap*) 100 mg PO BID PRN PRN Reason: CONSTIPATION Fluticasone Propionate (Flonase Nasal [place] 50mcg*) 2 [address] [facility] Last Admin: 02/20/19 11:14 Dose: Not Given Folic Acid (Folvite Tab*) [address] [facility] Last Admin: 02/20/19 11:09 Dose: 1 mg Heparin Sodium (Porcine) (Heparin Vial(*)) 5,[address] [facility] Last Admin: 02/20/19 14:08 Dose: 5,000 units Cefepime HCl (Maxipime 2 Gm In Dextrose Duplex (*)) 2 gm in 50 mls @ 100 mls/ hr IV Q12H [facility] Last Admin: 02/20/19 04:23 Dose: 100 mls/hr Lactulose (Lactulose*) [address] [facility] Last Admin: 02/20/19 14:07 Dose: 30 ml Levetiracetam (Keppra Tab*) [address] [facility]; Protocol Last Admin: 02/20/19 14:07 Dose: 750 mg Lorazepam (Ativan Inj*) 0 - 3 mg IV PUSH .PER WA PROTOCOL [facility]; Protocol Last Admin: 02/20/19 03:12 Dose: 1.5 mg Metoprolol Succinate (Toprol Xl Tab*) [address] [facility] Last Admin: 02/20/19 11:09 Dose: 50 mg Miscellaneous (Ativan Pyxis Bower) 1 ea N/A .PYXIS BOWER PRN PRN Reason: PER PROTOCOL Mometasone Furoate/Formoterol Fumar (Dulera 100/5 Mdi*) [address] [facility] Last Admin: 02/20/19 08:02 Dose: 2 puff Multivitamins/Minerals (Theragran/Minerals Tab*) [address] [facility] Last Admin: 02/20/19 11:09 Dose: 1 tab Nicotine (Nicotine Patch 21 Mg/24 Hr*) [address] [facility] Last Admin: 02/20/19 11:15 Dose: Not Given Nystatin (Nystatin Suspension*) 500,[address] [facility] Stop: 02/25/19 11:15 Last Admin: 02/20/19 14:10 Dose: Not Given Oxycodone HCl (Roxycodone Tab*) 5 mg PO Q12HR PRN PRN Reason: PAIN - MILD Last Admin: 02/20/19 02:32 Dose: 5 mg Pharmacy Profile Note (Nicotine Patch Removal Note*) 1 note [address] UP [address] [facility] Last Admin: 02/19/19 23:48 Dose: Not Given Sertraline HCl (Zoloft*) [address] [facility] Last Admin: 02/20/19 11:09 Dose: 200 mg Tamsulosin HCl (Flomax Cap*) 0.[address] [facility] Last Admin: 02/20/19 11:10 Dose: 0.4 mg Thiamine HCl (Vitamin B-1 Tab*) [address] [facility] Last Admin: 02/20/19 11:10 Dose: 100 mg Tiotropium [place] (Spiriva Respimat 2.5 Mcg) [address] [facility] Last Admin: 02/20/19 08:01 Dose: 2 puff Vital Signs - 8 hr 02/20/19 02/20/19 02/20/19 10:20 13:07 14:11 Temperature 97.9 F 97.8 F 96.9 F Pulse Rate 112 77 100 Respiratory 18 18 16 Rate Blood Pressure 183/99 160/82 147/64 (mmHg) O2 Sat by Pulse 100 100 99 Oximetry Oxygen Devices in Use Now: None Appearance: Comfortable, NAD Eyes: No Scleral Icterus, PERRLA Ears/Nose/Mouth/Throat: Clear Oropharnyx, Mucous Membranes Moist Neck: NL Appearance and Movements; NL JVP Respiratory: Symmetrical Chest Expansion and Respiratory Effort, Clear to Auscultation Cardiovascular: NL Sounds; No Murmurs; No JVD, RRR, No Edema Abdominal: NL Sounds; No Tenderness; No Distention Lymphatic: No Cervical Adenopathy Extremities: No Clubbing, Cyanosis Skin: - - Incision to right ankle well approx. 1 cm round ulcer/scabbed area to dorsal of right foot. Very min redness. No warmth Neurological: Alert and Oriented x 3, NL Muscle Strength and Tone Nutrition: Taking PO's Result Diagrams: 02/20/19 10:08 02/20/19 10:08 Additional Lab and Data: Laboratory Results - last 24 hr 02/20/19 02/20/19 02/20/19 06:27 10:08 10:08 WBC 4.8 RBC 3.98 L Hgb 12.6 L Hct 36 L MCV 90 MCH 32 H MCHC 35 RDW 16 H Plt Count 189 MPV 7.5 Neut % (Auto) 60.7 Lymph % (Auto) 19.5 Amelia % (Auto) 14.5 Eos % (Auto) 4.6 Baso % (Auto) 0.7 Absolute Neuts (auto) 2.9 Absolute Lymphs (auto) 0.9 L Absolute Monos (auto) 0.7 Absolute Eos (auto) 0.2 Absolute Basos (auto) 0.0 Absolute Nucleated RBC 0.0 Nucleated RBC % 0.1 Sodium 133 L Potassium 3.9 Chloride 102 Carbon Dioxide 26 Anion Gap 5 BUN 4 L Creatinine 0.69 Est GFR ( Amer) 139.7 Est GFR (Non-Af Amer) 115.4 BUN/Creatinine Ratio 5.8 L Glucose 82 Calcium 8.7 Vancomycin Trough 12.4 Microbiology and Other Data: Microbiology 02/18/19 10:05 Skin and Soft Tissue MRSA/MSSA (PCR - Final Foot Right Mrsa Negative S.aureus Negative Gram Stain - Final Wound Culture - Final Acinetobacter Haemolyticus Normal [place]ma 02/18/19 10:45 Skin and Soft Tissue MRSA/MSSA (PCR - Final Wound - Other Mrsa Negative S.aureus Negative Gram Stain - Final Wound Culture - Final Acinetobacter Haemolyticus Normal Edilma 02/18/19 10:36 Aerobic Blood Culture - Preliminary Blood Venous No Growth Day 2 Anaerobic Blood Culture - Preliminary No Growth Day 2 02/18/19 10:32 Aerobic Blood Culture - Preliminary Blood Venous No Growth Day 2 Anaerobic Blood Culture - Preliminary No Growth Day 2 Assess/Plan/Problems-Billing Assessment: Mr. Cortez is a 64 yo M with PMH of CAD, HTN, afib, COPD, seizures, PVD, neuropathy, and multiple psych disorders; who underwent a R ankle ORIF on , now presenting with R leg pain and found to have cellulitis. - Patient Problems (1) Cellulitis of right foot Comment: - Cast yesterday by Ortho revealing dime sized ulcer on dorsal foot with very min redness and no warmth - S/p right ankle ORIF with Dr. Moe on 01/20/19 - Wound culture growing Acinetobacter, sensitivities pending - Appreciate Ortho consult. Recommend: NWB to RLE with tall boot on. F/U with Dr Moe in 1 to 2 weeks - Continue cefepime (2) Hyperammonemia Comment: - Elevated on admission, but now wnl - Unclear etiology as LFTs are normal - Liver US remarkable - Continue lactulose, but decrease dosing (3) Oral fermin Comment: - Continue nystatin (4) Psychiatric disorder Comment: - Continue Abilify, sertraline (5) Afib Comment: - Rate controlled - Continue digoxin, diltiazem, metoprolol (6) Alcohol abuse Comment: - [facility] protocol - Continue lorazepam, folic acid, multivitamin, thiamine (7) CAD (coronary artery disease) Comment: - Continue aspirin, atorvastatin, metoprolol (8) COPD (chronic obstructive pulmonary disease) Comment: - Continue Dulera, Spiriva (9) HTN (hypertension) Comment: - Slightly hypertensive, SBP 140-150s. Could be secondary to pain and/or etoh withdrawal. - Continue metoprolol, diltiazem (10) PAD (peripheral artery disease) Comment: - Continue Pletal (11) Seizure disorder Comment: - Seizure precations in place - Continue Aparna Owusu (12) Full code status Comment: (13) DVT prophylaxis Comment: -HSQ Status and Disposition: Inpatient. Anticipate d/c home when medically stable as patient signed himself out of [facility] prior to presenting to ED on this admission Attending: Aurora Fitzgerald
[2019-02-20] MEDS ORDERED: LORazepam TAB(*) 1 MG PO ONE (20:39)
[2019-02-20] MEDS ORDERED: oxyCODONE TAB* 5 MG TAB PO ONE (20:39)
[2019-02-20] MEDS: Nicotine Patch Removal NOTE FOLLOW UP SCH (21:49)
[2019-02-21] MEDS: Cefepime 2 GM in Dextrose(*) 2 GM/50 ML BAG IV SCH (04:13)
[2019-02-21] MEDS: Acetaminophen TAB* 325 MG PO PRN (04:18)
[2019-02-21] MEDS: Heparin VIAL(*) 5000 UNITS/ML VIAL (FIVE THOUSAND) SUBCUT SCH ×2 (05:57→13:48)
[2019-02-21] MEDS: Mometasone/Formoter 100/5 MDI INH SCH (07:29)
[2019-02-21] MEDS: SPIRIVA Respimat* (tiotropium) 2.5 mcg/inh Inhaler INH SCH (07:30)
[2019-02-21] MEDS: ARIPiprazole TAB* 5 MG PO SCH (08:30)
[2019-02-21] MEDS: Tamsulosin CAP* 0.4 MG PO SCH (08:30)
[2019-02-21] MEDS: Diltiazem CD CAP* 240 MG PO SCH (08:30)
[2019-02-21] MEDS: Thiamine TAB* 100 MG TAB PO SCH (08:31)
[2019-02-21] MEDS: Digoxin TAB* 0.125 MG PO SCH (08:31)
[2019-02-21] MEDS: Folic Acid TAB* 1 MG PO SCH (08:31)
[2019-02-21] MEDS: Aspirin EC TAB* 81 MG TAB.EC PO SCH (08:31)
[2019-02-21] MEDS: Atorvastatin* 20 MG TAB PO SCH (08:31)
[2019-02-21] MEDS: Metoprolol Succinate XL TAB* 50 MG PO SCH (08:31)
[2019-02-21] MEDS: Multivitamins/Minerals TAB PO SCH (08:31)
[2019-02-21] MEDS: Sertraline* 100 MG TAB PO SCH (08:31)
[2019-02-21] MEDS: oxyCODONE TAB* 5 MG TAB PO PRN (08:32)
[2019-02-21] MEDS: Nystatin SUSPENSION* 100000 UNITS/ML 5 ML UDC SWISH SWAL SCH ×2 (08:32→13:48)
[2019-02-21] MEDS: Divalproex ER TAB(*) 500 MG PO SCH (08:33)
[2019-02-21] MEDS: Fluticasone NASAL SPRAY 50MCG* 16 gm SPRAY BTL BOTH NARES SCH (08:33)
[2019-02-21] MEDS: levETIRAcetam TAB* 500 MG PO SCH ×2 (08:34→13:48)
[2019-02-21] MEDS: Cilostazol TAB* 100 MG PO SCH (08:34)
[2019-02-21] MEDS: Nicotine PATCH 21 MG/24 HR* PATCH TRANSDERM SCH (08:45)
[2019-02-21 13:36] VITALS: BP 129/69
--- NOTE | 2019-02-21 14:29 | DS ---
Amended report to enter cosigning physician. CC: Dr. Mcleod; Dr. Louie Lewis* DISCHARGE SUMMARY: DATE OF ADMISSION: 02/18/19 DATE OF DISCHARGE: 02/20/19 PRIMARY CARE PROVIDER: Dr. Mcleod. OTHER OUTSIDE PROVIDER: Dr. Louie Lewis. ATTENDING PHYSICIAN: Dr. Aurora Fitzgerald* (dictated by Elissa Meyers NP). PRIMARY DIAGNOSES: 1. Cellulitis, right foot. 2. Hyperammonemia. 3. Oral fermin. 4. Psychiatric disorder. 5. Atrial fibrillation. 6. Alcohol abuse. 7. Coronary artery disease. 8. Chronic obstructive pulmonary disease. 9. Hypertension. 10. Peripheral arterial disease. 11. Seizure disorder. CONSULTATIONS WHILE IN THE HOSPITAL: 1. ISAC Salgado, Ortho. 2. ISAC Segovia, Ortho. STUDIES WHILE IN THE HOSPITAL: 1. Brain CT: Impression: No acute intracranial pathology. 2. EKG: Impression: Atrial fibrillation. 3. Chest x-ray: Impression: Probable interstitial pulmonary edema. Stable cardiac silhouette, status post midline sternotomy and AVR. Left chest wall pacemaker. 4. Ankle x-ray: Impression: Status post right ankle ORIF. 5. Venous Doppler: Impression: No evidence for deep vein thrombosis. 6. Liver ultrasound: Impression: No acute sonographic pathology of visualized portion of the abdomen. DISCHARGE HOME MEDICATIONS: Continued home medications: 1. Acetaminophen 650 mg p.o. b.i.d. 2. Abilify 5 mg p.o. daily. 3. Aspirin 81 mg p.o. daily. 4. Atorvastatin 20 mg p.o. daily. 5. Pletal 100 mg p.o. b.i.d. 6. Cyclobenzaprine 10 mg p.o. p.r.n. spasms. 7. Digoxin 0.125 mg p.o. daily. 8. Diltiazem 240 mg p.o. daily. 9. Depakote ER 1500 mg p.o. q.a.m. 10. Dulcolax 100 mg p.o. b.i.d. p.r.n. constipation. 11. Lovenox 40 mg subcu q.24 hours. 12. Fluticasone 2 sprays both nares daily. 13. Fluticasone/vilanterol 1 puff inhalation daily. 14. Levetiracetam 750 mg p.o. t.i.d. 15. Ativan 2 mg p.o. at bedtime p.r.n. anxiety. 16. Metoprolol 50 mg p.o. daily. 17. Oxycodone 5 to 10 mg p.o. q.12 hours p.r.n. pain. 18. Zoloft 200 mg p.o. daily. 19. Tamsulosin 0.4 mg p.o. daily. 20. Thiamine 100 mg p.o. daily. 21. Incruse Ellipta 62.5 mcg inhalation daily. New home medications: 1. Cefdinir 300 mg p.o. b.i.d. x14 days. 2. Lactulose 30 mg p.o. b.i.d. HISTORY OF PRESENT ILLNESS/HOSPITAL COURSE: Mr. Cortez is a 64-year-old male with an extensive past medical history including CAD, AFib, hypertension, PVD, peripheral neuropathy, recent right ORIF of the right ankle on 01/21/19, who presents to the emergency department on 02/18/19 with complaints of right leg pain. Please see history and physical dictated by ISAC Boucher, for complete summary of events leading up to the hospitalization, but in short, the patient had pain to the right lower extremity and there was a question if he was slightly confused. While in the emergency department, the patient had labs which revealed mild normocytic anemia, chronic hyponatremia, low magnesium , elevated ammonia, elevated CRP. There was also concern of cellulitis given redness in visualized part of right lower extremity. It should be noted that the patient did have a cast on right lower extremity at that time, so it could not be completely visualized. Given these findings, the patient was admitted for further evaluation and treatment. The cast was removed by Ortho and revealed a dime-sized ulcer in the dorsal right foot with redness and warmth. He was initially initiated on cefepime, vancomycin, and Flagyl, but wound culture was obtained and grew Acinetobacter haemolyticus; therefore, the patient was narrowed to cefepime. The patient's appearance of his right lower extremity has greatly improved as he currently has very minimal redness and no warmth. He was also evaluated by Ortho while he was admitted given his recent surgery and they recommended patient to continue nonweightbearing to right lower extremity with tall boot on since he is no longer wearing a cast and to follow up with Dr. Moe in 1 to 2 weeks. The patient's hospitalization was further complicated as he was noted to have hyperammonemia, specifically his ammonia was noted to be 69 on admission and is now 39. The patient was initiated on lactulose t.i.d., but given the decrease in ammonia and no noted confusion, it was decreased to b.i.d. The patient did undergo an ultrasound of his liver given this lab finding, but it was unremarkable. In addition, his LFTs were normal. The patient was stable for discharge to home. DIAGNOSTIC STUDIES/LABORATORY DATA: WBC 4.8, hemoglobin 12.6, hematocrit 36, platelets 189. Sodium 133, potassium 3.9, chloride 102, carbon dioxide 26, BUN 4, creatinine 0.69. REVIEW OF SYSTEMS: The patient reports mild pain in right lower extremity. The patient denies calf pain, numbness, tingling, fever, chills, chest pain, shortness of breath, nausea, vomiting. A 14-point review of systems was completed and all were negative. PHYSICAL EXAMINATION: Vital Signs: Temp 97.6, HR 98, RR 19, O2 saturation 98% on room air, BP 155/ 92. General: Mr. Cortez is sitting in bed. Appears to be in no acute distress. Appears stated age. HEENT: EOMs intact. PERRLA. Oral mucosa is moist without lesion. Posterior pharynx is clear. Neck: Supple. No lymphadenopathy. Cardiac: S1, S2 present. Irregular rhythm, regular rate. No murmurs, rubs, or gallops. Respiratory: Lungs are clear to auscultation. No wheezes, rhonchi, or rubs. Good aeration. No accessory muscle use. Abdomen: Soft, nontender. Bowel sounds normoactive. Extremities: Trace pitting edema to right foot, otherwise no edema. No clubbing or cyanosis. Pedal pulses are 2+ bilaterally. Musculoskeletal: The patient reports pain to right ankle, but no deformity palpated. Otherwise, no pain or deformities. Skin: The patient has small dime-sized scabbed ulcer on the dorsal aspect of the right foot. Very scant redness noted. No warmth palpated. Otherwise, skin is clean, dry, and intact. Neuro: Neuro exam is grossly intact. No focal deficits or weakness. DISCHARGE PLAN/FOLLOWUP: 1. Cellulitis, right foot: The patient should continue cefdinir 300 mg p.o. b.i.d. x14 days. The patient should follow up with primary care early next week for reassessment of this foot. The patient should continue nonweightbearing status. The patient should wear a tall boot as recommended by Ortho. The patient should follow up with Dr. Moe in 1 to 2 weeks. The patient will have in-home services offered to him by Social Work. 2. Hyperammonemia: This has resolved during the patient's admission. He will be discharged to continue lactulose b.i.d. The patient should follow up with his primary care early next week for a repeat ammonia level and discussion if he needs to continue these medications. 3. Psychiatric disorder: The patient should continue his Abilify and sertraline. 4. AFib: The patient is rate controlled. I discussed anticoagulation with the patient. 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 He reports he is not on this because he drinks too much. He is aware of the risks. The patient should continue his home medications of digoxin, diltiazem, and metoprolol. 5. Alcohol abuse: During this hospital stay, the patient did remain on [facility] protocol. The patient did not show any significant signs of alcohol withdrawal. I discussed with the patient the risks of alcohol abuse. The patient should continue his lorazepam, folic acid, vitamin, and thiamine. 6. CAD: The patient to continue his aspirin, atorvastatin, and metoprolol. The patient should follow up with primary care next week and Cardiology as previously recommended. 7. COPD: The patient should continue his Dulera and Spiriva. 8. Hypertension: The patient is currently normotensive with occasional hypertension. Occasional hypertension could be secondary to pain and/or alcohol withdrawal. The patient should continue his home medications as same and follow up with PCP. 9. PAD: The patient should continue his Pletal and follow up with his primary care. 10. Seizure disorder. While in the hospital, the patient did have seizure precautions. The patient was free from seizure activity. The patient should continue his Depakote and Keppra. 11. Followup: The patient should follow up with his primary care early next week. The patient should follow up with Dr. Moe in 1 to 2 weeks. 12. Education: The patient was educated on signs and symptoms of new or worsening conditions and when to return to the emergency department. The patient stated understanding. 13. Pain control: We discussed pain control. The patient reports that he has pain medications at home and therefore does not need a refill. I have consulted the [facility] reference #[id number]. 14. PT/OT: The patient did sign himself out to subacute rehab after his previous admission. The patient would benefit from outpatient services which I have discussed this with Social Work. This is a summarized report of a complex medical history and hospital stay. For further details, please see entire medical record. TIME SPENT: Approximately 35 minutes was spent on this discharge, greater than half that time was spent [id number] with the patient discussing discharge plans and instructions. This plan was discussed with my attending, Dr. Fitzgerald, who is in agreement with my plan of care. Reviewed by ELISSA MEYERS NP 02/21/19 @ [id number]/[facility] #: [id number] MTDMaria C
== END 2019-02-21 15:10 | disposition home or self-care (01) | DRG 603 ==
LOC: ED 05:18 → MED 11:03
PROVIDERS: ADMIT Hospitalist; ATTEND Hospitalist
PROC: 2W5LX2Z Removal of Cast on Right Lower Extremity (ICD-10-PCS; principal; 2019-02-18)
DX: L03.115 Cellulitis of right lower limb (principal); E72.20 Disorder of urea cycle metabolism, unspecified; B37.0 Candidal stomatitis; E87.1 Hypo-osmolality and hyponatremia; I48.91 Unspecified atrial fibrillation; F10.10 Alcohol abuse, uncomplicated; 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native coronary artery without angina pectoris; J44.9 Chronic obstructive pulmonary disease, unspecified; I10 Essential (primary) hypertension; I73.9 Peripheral vascular disease, unspecified; G40.909 Epilepsy, unspecified, not intractable, without status epilepticus; G62.9 Polyneuropathy, unspecified; D64.9 Anemia, unspecified; E83.42 Hypomagnesemia; L97.519 Non-pressure chronic ulcer of other part of right foot with unspecified severity; H26.9 Unspecified cataract; F41.9 Anxiety disorder, unspecified; F43.10 Post-traumatic stress disorder, unspecified; F31.9 Bipolar disorder, unspecified; R40.2362 Coma scale, best motor response, obeys commands, at arrival to emergency department; R40.2142 Coma scale, eyes open, spontaneous, at arrival to emergency department; R40.2252 Coma scale, best verbal response, oriented, at arrival to emergency department; N40.0 Benign prostatic hyperplasia without lower urinary tract symptoms; F17.210 Nicotine dependence, cigarettes, uncomplicated; Z81.1 Family history of alcohol abuse and dependence; Z81.8 Family history of other mental and behavioral disorders; Z86.11 Personal history of tuberculosis; Z79.82 Long term (current) use of aspirin; Z95.1 Presence of aortocoronary bypass graft; Z79.51 Long term (current) use of inhaled steroids; Z95.810 Presence of automatic (implantable) cardiac defibrillator; Z95.2 Presence of prosthetic heart valve; Y90.0 Blood alcohol level of less than 20 mg/100 ml
CPT/HCPCS: 36415; 70450; 71045; 76705; 80048; 80053; 80202; 80307; 80320; 81003; 82140; 82550; 83605; 83735; 84484; 85025; 85610; 86140; 87040; 87070; 87205; 87640; 87641; 93005; 94640; 99284; A9270-GY; G0480; J0692; J1644; J2060; J3370; J3411; J3475; J3535

== ENCOUNTER 2019-04-07 12:02 | Inpatient (IN) | payer MEDICARE, MEDICAID ==
--- OUTSIDE RECORDS SUMMARY | 2019-04-07 12:17 | XMS REPORT | Continuity of Care Document ---
:1955 External Reference #:[id number] Author Name Louie Lewis MD Address [address] [place] [address] Care Team Providers Name Role Phone Rosales Reich MD - Cardiovascular Care Team Information Special Education Para Professional Disease Juan Luis Joseph MD - Surgery Care Team Information Special Education Para Professional Kristen Adams - Vascular Surgery Care Team Information Special Education Para Professional [phone] [facility] Emergency Room - Emergency Care Care Team Information Special Education Para Professional Visiting Nurse Services - Home Health Care Team Information Special Education Para Professional Louie Lewis MD - Family Care Team Information Special Education Para Professional Medicine Nasreen Servin - Pulmonary Disease Care Team Information Special Education Para Professional Alexandria Barksdale ([facility]) - Care Team Information Special Education Para Professional [phone] Surgery of the Hand [facility] Pain Clinic - Interventional Pain Care Team Information Special Education Para Professional Luis Antonio Robison MD - Neurology Care Team Information Special Education Para Professional Problems Active Problems Provider Date Peripheral vascular [...] M.D. Onset: 10/26/2016 Atherosclerotic heart disease of [place] coronary Kellee Bangura M.D. Onset: artery without angina pectoris Paroxysmal atrial fibrillation Kellee Bangura M.D. Onset: 12/01/2016 Diverticulosis of colon without diverticulitis Kellee Bangura M.D. Onset: Idiopathic peripheral neuropathy Kellee Bangura M.D. Onset: 06/11/2017 Note: narcotic contract 06/11/17 Social History Type Date Description Comments Sex Unknown Tobacco Use Start: Unknown Heavy tobacco smoker [...] Medications Active Medications SIG Qnty Indications Ordering Date Provider Belsokina one by mouth 14tabs Louie Schafer 03/20/2019 20mg Tablets nightly prn. MD Debbie Oxycodone-Acetaminophe take one by 120tabs Louie Schafer 02/14/2019 n mouth every 6 MD Debbie 7.5-325mg Tablets hours as needed for pain Lorazepam take 1 tablet by 15tabs Nato Mcleod, 02/07/2019 1mg Tablets mouth three M.D. times a day daily as needed for anxiety Hydrocodone-Acetaminop 1 by mouth every 21tabs Karena Romeo 01/01/2019 hen 8 hours as JEFFREY Cantor 5-325mg Tablets needed Tamsulosin HCL take one capsule 30caps E87.1 Kellee Bangura, 08/22/2018 0.4mg by mouth once M.D. Capsules daily Zoloft 2 tab by mouth 60tabs Kellee Bangura, 06/28/2017 100mg Tablets every day M.DBriseida Cilostazol Take One Tablet 60tabs I73.9 Jamar Marquez, 05/07/2017 100mg Tablets By Mouth Two M.D. Times Daily Breo Ellipta 1 puff every day 1units Avtar Ring M.D. 03/11/2015 100-25mcg/Inh Aerosol Cefdinir 1 by mouth twice Unknown 300mg Capsules daily x14 days Levetiracetam take one tablet Unknown 750mg by mouth twice a Tablets day Multi Vitamin once daily otc Unknown Tablets Nicotine Step 1 1 patch daily, Unknown 21mg/24HR remove prior Patches 24HR patch, no smoking on patch Thiamine HCL 1 by mouth every Unknown 100mg day Tablets Spiriva Handihaler inhale contents Unknown 18mcg one of capsule Capsules by mouth twice daily Aspirin Low Strength Unknown 81mg Chewtabs Atorvastatin Calcium 1 by mouth every Unknown 20mg day Tablets Diltiazem CD 1 by mouth every Unknown 240mg Caps day ER 24HR Folic Acid 1 by mouth every Unknown 1mg Tablets day Digoxin 150mcg 1 po qd Unknown Incruse Ellipta 1 puff daily Unknown 62.5mcg/Inh Aerosol Divalproex Sodium ER Take Three 90tabs Louie Zuri Tablets By Mouth Radames Lou 500mg Tablets ER 24HR Once Daily In The Morning History Medications Fluticasone 1 spray each 16gm Casandra Jalyn 11/23/2018 - Propionate nostril every Michelle [employer] 12/04/2018 day-generic 50mcg/Act Suspension Digoxin 1 by mouth every Louie Schafer 11/13/2018 - 250mcg day MD Debbie 11/13/2018 Tablets Hydrocodone-Acetami 1 tab by mouth 21tabs S01.01xD Louie Schafer 11/13/2018 - nophen every 8 hours as MD Debbie 12/04/2018 10-325mg needed Tablets Immunizations CPT Code Status Date Vaccine Lot # [id number] Given 04/05/2018 Pneumococcal Immunization [id number] Given 04/05/2018 Influenza Vac, Quadrivalent, Slit Virus, Im [id number] Given 05/18/2016 Influenza Vac, Quadrivalent, Slit Virus, Im [id number] Given 05/31/2015 Influenza Vac, Quadrivalent, Slit Virus, Im [id number] Given 05/05/2014 Pneumococcal Conjugate [id number] Given 03/25/2012 DO Not Use Split Influenza Virus Vaccine Vital Signs Date Vital Result Comment 03/21/2019 2:37pm BP Systolic 112 mmHg BP Diastolic 70 mmHg Heart Rate 68 /min Body Temperature 97.7 F Respiratory Rate 17 /min Height 68.5 inches 5'8.50" Weight 158.00 lb BMI (Body Mass Index) 23.7 kg/m2 03/07/2019 11:38am BP Systolic 124 mmHg BP Diastolic 66 mmHg Heart Rate 94 /min Body Temperature 97.7 F Respiratory Rate 17 /min Height 68.5 inches 5'8.50" Weight 158.00 lb BMI (Body Mass Index) 23.7 kg/m2 Results Test Date Facility Test Result H/L Range Note Comprehensive Metabolic 03/06/2019 [facility](a) Sodium 132 mEq/L Low 134-149 1 Prof Potassium 4.9 mEq/L 3.6-5.5 Chloride 98 mEq/L 94-112 Carbon Dioxide 27 mEq/L 21-32 Glucose 105 mg/dL 70-105 BUN 6 mg/dL 6-26 Creatinine 0.7 mg/dL 0.6-1.4 BUN/Creat Ratio 8.6 CALC 8.0-36.0 Calcium 9.2 mg/dL 8.6-10.2 Total Protein 6.9 g/dL 6.4-8.3 Albumin 4.1 g/dL 3.8-5.5 Globulin 2.8 g/dL 2.0-4.8 A/G Ratio 1.5 CALC 0.6-2.3 Alk. Phosphatase 72 U/L 22-95 Alt (SGPT) 13 U/L 7-35 Ast (Sgot) 19 U/L 5-34 Total Bilirubin 0.4 mg/dL 0.2-1.3 GFR Non- >60 ml/min/1.73m^ >=60 GFR >60 ml/min/1.73m^ >=60 CBC Electronic Fma 03/06/2019 [facility](a) WBC 6.0 x10^3/UL 4.0- 10.0 RBC 4.12 x10^6/UL 3.93-6.00 HGB 13.0 g/dL 12.0-17.0 HCT 38 % 35-50 MCV 92.7 fL 80.0-95.0 MCH 31.6 pg 25.6-32.2 MCHC 34.0 g/dL 32.2-36.0 RDW-CV 14.8 % High 11.6-14.4 PLT 230 x10^3/UL 163-400 MPV 10.7 fL 9.4-12.4 Garret# 3.99 x10^3/UL 1.56-6.13 Lymph# 1.24 x10^3/UL 1.18-3.74 [place]# 0.61 x10^3/UL 0.24-0.82 Eos # 0.1 x10^3/UL 0.0-0.5 Baso # 0.04 x10^3/UL 0.01-0.08 Garret% 66.1 % 34.0-70.0 Lymph % 20.5 % 20.0-52.0 [place]% 10.1 % 5.0-12.0 Eos% 2.3 % 0.7-7.0 Baso% 0.7 % 0.1-1.2 Laboratory test 03/06/2019 [facility] Valproic Acid 33 ug/mL Low 50-100 2, 3 finding 1447 [facility] ([facility]R),[place] [address] ([phone] - Levetiracetam (Keppra), S 30.3 ug/mL 10.0-40.0 4 CBC Auto Diff 03/04/2019 [facility] White Blood Count 7.1 10^3/uL Normal 3.5- 10.8 Red Blood Count 3.98 10^6/uL Low 4.18-5.48 Hemoglobin 12.3 g/dL Low 14.0-18.0 Hematocrit 36 % Low 42-52 Mean Corpuscular Volume 91 fL Normal 80-94 Mean Corpuscular Hemoglobin 31 pg Normal 27-31 Mean Corpuscular HGB Conc 34 g/dL Normal 31-36 Red Cell Distribution Width 16 % High 10-15 Platelet Count 192 10^3/uL Normal 150-450 Mean Platelet Volume 7.5 fL Normal 7.4-10.4 Abs Neutrophils 4.8 10^3/uL Normal 1.5-7.7 Abs Lymphocytes 1.7 10^3/uL Normal 1.0-4.8 Abs Monocytes 0.5 10^3/uL Normal 0-0.8 Abs Eosinophils 0.1 10^3/uL Normal 0-0.6 Abs Basophils 0.0 10^3/uL Normal 0-0.2 Abs Nucleated RBC 0.0 10^3/uL Granulocyte % 67.2 % Lymphocyte % 23.4 % Monocyte % 7.3 % Eosinophil % 1.7 % Basophil % 0.4 % Nucleated Red Blood Cells % 0.0 Laboratory test finding 03/04/2019 [facility] Ammonia 31 mcmol/L Normal 16-53 Comp Metabolic Panel 03/04/2019 [facility] Sodium 132 mmol/L Low 135-145 Potassium 3.9 mmol/L Normal 3.5-5.0 Chloride 97 mmol/L Low 101-111 Co2 Carbon Dioxide 30 mmol/L Normal 22-32 Anion Gap 5 mmol/L Normal 2-11 Glucose 115 mg/dL High 70-100 Blood Urea Nitrogen 9 mg/dL Normal 6-24 Creatinine 0.77 mg/dL Normal 0.67-1.17 BUN/Creatinine Ratio 11.7 Normal 8-20 Calcium 9.5 mg/dL Normal 8.6-10.3 Total Protein 6.6 g/dL Normal 6.4-8.9 Albumin 3.5 g/dL Normal 3.2-5.2 Globulin 3.1 g/dL Normal 2-4 Albumin/Globulin Ratio 1.1 Normal 1-3 Total Bilirubin 0.40 mg/dL Normal 0.2-1.0 Alkaline Phosphatase 65 U/L Normal 34-104 Alt 13 U/L Normal 7-52 Ast 17 U/L Normal 13-39 Egfr Non- 101.7 >60 Egfr 123.1 >60 5 Laboratory test finding 03/04/2019 [facility] Levetiracetam (Keppra) 35.9 g/mL 6 Laboratory test finding 03/01/2019 [facility] Acetaminophen < 15 g/mL 7 Alcohol < 10 mg/dL Normal <10 Levetiracetam (Keppra) 60.3 g/mL Abnormal 8 Comp Metabolic Panel 03/01/2019 [facility] Sodium 128 mmol/L Low 135-145 Potassium 3.7 mmol/L Normal 3.5-5.0 Chloride 92 mmol/L Low 101-111 Co2 Carbon Dioxide 23 mmol/L Normal 22-32 Anion Gap 13 mmol/L High 2-11 Glucose 95 mg/dL Normal 70-100 Blood Urea Nitrogen 20 mg/dL Normal 6-24 Creatinine 1.38 mg/dL High 0.67-1.17 BUN/Creatinine Ratio 14.5 Normal 8-20 Calcium 9.5 mg/dL Normal 8.6-10.3 Total Protein 6.9 g/dL Normal 6.4-8.9 Albumin 3.9 g/dL Normal 3.2-5.2 Globulin 3.0 g/dL Normal 2-4 Albumin/Globulin Ratio 1.3 Normal 1-3 Total Bilirubin 0.50 mg/dL Normal 0.2-1.0 Alkaline Phosphatase 66 U/L Normal 34-104 Alt 12 U/L Normal 7-52 Ast 19 U/L Normal 13-39 Egfr Non- 51.9 >60 Egfr 62.8 >60 9 CBC Auto Diff 03/01/2019 [facility] White Blood Count 5.3 10^3/uL Normal 3.5- 10.8 Red Blood Count 4.06 10^6/uL Low 4.18-5.48 Hemoglobin 12.7 g/dL Low 14.0-18.0 Hematocrit 37 % Low 42-52 Mean Corpuscular Volume 91 fL Normal 80-94 Mean Corpuscular Hemoglobin 31 pg Normal 27-31 Mean Corpuscular HGB Conc 35 g/dL Normal 31-36 Red Cell Distribution Width 16 % High 10-15 Platelet Count 224 10^3/uL Normal 150-450 Mean Platelet Volume 7.6 fL Normal 7.4-10.4 Abs Neutrophils 3.3 10^3/uL Normal 1.5-7.7 Abs Lymphocytes 1.3 10^3/uL Normal 1.0-4.8 Abs Monocytes 0.6 10^3/uL Normal 0-0.8 Abs Eosinophils 0.1 10^3/uL Normal 0-0.6 Abs Basophils 0.0 10^3/uL Normal 0-0.2 Abs Nucleated RBC 0.0 10^3/uL Granulocyte % 61.5 % Lymphocyte % 24.4 % Monocyte % 11.1 % Eosinophil % 2.2 % Basophil % 0.8 % Nucleated Red Blood Cells % 0.0 Comprehensive Metabolic 02/27/2019 [facility](a) Sodium 134 mEq/L 134-149 Prof Potassium 4.4 mEq/L 3.6-5.5 Chloride 98 mEq/L 94-112 Carbon Dioxide 30 mEq/L 21-32 Glucose 97 mg/dL 70-105 BUN 8 mg/dL 6-26 Creatinine 0.8 mg/dL 0.6-1.4 BUN/Creat Ratio 10.0 CALC 8.0-36.0 Calcium 9.5 mg/dL 8.6-10.2 Total Protein 7.7 g/dL 6.4-8.3 Albumin 4.5 g/dL 3.8-5.5 Globulin 3.2 g/dL 2.0-4.8 A/G Ratio 1.4 CALC 0.6-2.3 Alk. Phosphatase 74 U/L 22-95 Alt (SGPT) 11 U/L 7-35 Ast (Sgot) 27 U/L 5-34 Total Bilirubin 0.5 mg/dL 0.2-1.3 GFR Non- >60 ml/min/1.73m^ >=60 GFR >60 ml/min/1.73m^ >=60 CBC Electronic (a New) 02/27/2019 [facility] Medicine WBC 5.62 4.0-10.0 (607)- - RBC 4.48 3.93-6.0 Hemoglobin (Fma/CMC/CTX) 13.9 g/dL 12.0-17.0 Hematocrit (Fma/CMC/CTX) 39.7 % 35.0-50.0 Mean Corpuscular Vol 88.6 fL 80-95 Mean Corpuscular Hemoglobin 31.0 pg 25.6-32.2 Mean Corpuscular Hemo Concen 35.0 g/dL 32.2-36.0 Platelets 244 10^3/ul 163-400 RDW-CV 14.1 11.6-14.4 Mean Platelet Volume 9.6 fL 8.0-12.4 Absolute Neutrophils BLD 3.40 1.56-6.13 Absolute Lymphocytes 1.33 1.18-3.74 Absolute Monocytes BLD Auto 0.80 0.24-0.82 Absolute Eos Blood 0.05 0.04-0.54 Absolute Basophils 0.03 0.01-0.08 Neutrophil % 60.5 % 34.0-70.0 Lymph% 23.7 % 20.0-52.0 Monocytes % 14.2 % High 5.0-12.0 Eos % 0.9 % 0.7-7.0 Basophil% 0.5 % 0-1.2 Laboratory test 02/27/2019 [facility] Ammonia, Plasma 58 g/dL 27-102 10 finding [address] [place] [address] (747)- - Urinalysis Profile 02/18/2019 [facility] Urine Color Yessica Urine Appearance Clear Urine Specific [place] 1.017 Normal 1.010-1.030 Urine pH 7.0 Normal 5-9 Urine Urobilinogen Positive Abnormal Negative Urine Ketones Trace Abnormal Negative Urine Protein Negative Negative Urine Leukocytes Negative Negative Urine Blood Negative Negative Urine Nitrite Negative Negative Urine Bilirubin Negative Negative Urine Glucose Negative Negative Laboratory test finding 02/18/2019 [facility] Magnesium 1.5 mg/dL Low 1.9-2.7 Creatine Kinase(CK) 60 U/L Normal 10-223 C Reactive Protein 72.96 mg/L High <8.01 Alcohol < 10 mg/dL Normal <10 Comp Metabolic Panel 02/18/2019 [facility] Sodium 130 mmol/L Low 135-145 Potassium 3.6 mmol/L Normal 3.5-5.0 Chloride 96 mmol/L Low 101-111 Co2 Carbon Dioxide 24 mmol/L Normal 22-32 Anion Gap 10 mmol/L Normal 2-11 Glucose 136 mg/dL High 70-100 Blood Urea Nitrogen 8 mg/dL Normal 6-24 Creatinine 0.83 mg/dL Normal 0.67-1.17 BUN/Creatinine Ratio 9.6 Normal 8-20 Calcium 9.0 mg/dL Normal 8.6-10.3 Total Protein 6.4 g/dL Normal 6.4-8.9 Albumin 3.6 g/dL Normal 3.2-5.2 Globulin 2.8 g/dL Normal 2-4 Albumin/Globulin Ratio 1.3 Normal 1-3 Total Bilirubin 0.60 mg/dL Normal 0.2-1.0 Alkaline Phosphatase 75 U/L Normal 34-104 Alt 18 U/L Normal 7-52 Ast 21 U/L Normal 13-39 Egfr Non- 93.3 >60 Egfr 112.9 >60 11 Laboratory test finding 02/18/2019 [facility] Troponin I 0.01 ng/mL <0.04 12 Inr/Protime 02/18/2019 [facility] Inr 1.20 High 0.82-1.09 13 Laboratory test finding 02/18/2019 [facility] Ammonia 69 mcmol/L High 16-53 Lactic Acid 0.8 mmol/L Normal 0.5-2.0 14 CBC Auto Diff 02/18/2019 [facility] White Blood Count 5.6 10^3/uL Normal 3.5- 10.8 Red Blood Count 3.86 10^6/uL Low 4.18-5.48 Hemoglobin 12.4 g/dL Low 14.0-18.0 Hematocrit 35 % Low 42-52 Mean Corpuscular Volume 90 fL Normal 80-94 Mean Corpuscular Hemoglobin 32 pg High 27-31 Mean Corpuscular HGB Conc 36 g/dL Normal 31-36 Red Cell Distribution Width 16 % High 10-15 Platelet Count 212 10^3/uL Normal 150-450 Mean Platelet Volume 7.6 fL Normal 7.4-10.4 Abs Neutrophils 3.6 10^3/uL Normal 1.5-7.7 Abs Lymphocytes 1.0 10^3/uL Normal 1.0-4.8 Abs Monocytes 0.7 10^3/uL Normal 0-0.8 Abs Eosinophils 0.1 10^3/uL Normal 0-0.6 Abs Basophils 0.0 10^3/uL Normal 0-0.2 Abs Nucleated RBC 0.0 10^3/uL Granulocyte % 65.4 % Lymphocyte % 18.5 % Monocyte % 12.8 % Eosinophil % 2.6 % Basophil % 0.7 % Nucleated Red Blood Cells % 0.0 Urine Drug SCR ED 02/18/2019 [facility] Urine Amphetamine None Detected None Detect & Pain Clinic Screen Urine Barbiturates Screen None Detected None Detect Urine Benzodiazepine Screen Presumptive Posi <SEE NOTE> Abnormal None Detect 15 Urine Cannabinoids Screen Presumptive Posi <SEE NOTE> Abnormal None Detect 16 Urine Cocaine Screen None Detected None Detect Urine Opiates Screen None Detected None Detect Urine Phencyclidine Screen None Detected None Detect 17 Laboratory test 02/18/2019 [facility] MRSA/S. aureus SEE RESULT 18 finding Ssti PCR BELOW Wound Culture/Sensi 02/18/2019 [facility] Wound/Misc SEE RESULT 19 Culture-Gram BELOW Stain CBC Auto Diff 01/19/2019 [facility] White Blood 4.0 10^3/uL Normal 3.5-10.8 Count Red Blood Count 3.77 10^6/uL Low 4.18-5.48 Hemoglobin 12.2 g/dL Low 14.0-18.0 Hematocrit 35 % Low 42-52 Mean Corpuscular Volume 92 fL Normal 80-94 Mean Corpuscular Hemoglobin 33 pg High 27-31 Mean Corpuscular HGB Conc 35 g/dL Normal 31-36 Red Cell Distribution Width 17 % High 10-15 Platelet Count 161 10^3/uL Normal 150-450 Mean Platelet Volume 7.2 fL Low 7.4-10.4 Abs Neutrophils 2.3 10^3/uL Normal 1.5-7.7 Abs Lymphocytes 1.0 10^3/uL Normal 1.0-4.8 Abs Monocytes 0.5 10^3/uL Normal 0-0.8 Abs Eosinophils 0.1 10^3/uL Normal 0-0.6 Abs Basophils 0.0 10^3/uL Normal 0-0.2 Abs Nucleated RBC 0.0 10^3/uL Granulocyte % 57.9 % Lymphocyte % 25.2 % Monocyte % 13.3 % Eosinophil % 3.1 % Basophil % 0.5 % Nucleated Red Blood Cells % 0.1 Type & Screen 01/19/2019 [facility] Patient Blood Type AB Negative Antibody Screen NEGATIVE Inr/Protime 01/19/2019 [facility] Inr 1.08 Normal 0.82-1.09 20 Laboratory test 01/19/2019 [facility] Partial Thrombo 31.5 seconds Normal 26.0- 38.0 finding Time PTT Comp Metabolic Panel 01/19/2019 [facility] Sodium 129 mmol/L Low 135-145 Potassium 4.1 mmol/L Normal 3.5-5.0 Chloride 96 mmol/L Low 101-111 Co2 Carbon Dioxide 27 mmol/L Normal 22-32 Anion Gap 6 mmol/L Normal 2-11 Glucose 104 mg/dL High 70-100 Blood Urea Nitrogen 13 mg/dL Normal 6-24 Creatinine 1.26 mg/dL High 0.67-1.17 BUN/Creatinine Ratio 10.3 Normal 8-20 Calcium 8.9 mg/dL Normal 8.6-10.3 Total Protein 6.2 g/dL Low 6.4-8.9 Albumin 3.4 g/dL Normal 3.2-5.2 Globulin 2.8 g/dL Normal 2-4 Albumin/Globulin Ratio 1.2 Normal 1-3 Total Bilirubin 0.50 mg/dL Normal 0.2-1.0 Alkaline Phosphatase 65 U/L Normal 34-104 Alt 11 U/L Normal 7-52 Ast 14 U/L Normal 13-39 Egfr Non- 57.8 >60 Egfr 69.9 >60 21 Laboratory test finding 01/19/2019 [facility] Digoxin 1.3 ng/ml Normal 0.8-2.0 Valproic Acid (Depakene) 92.0 g/mL Normal 50-100 Alcohol < 10 mg/dL Normal <10 CBC Electronic (Fma New) 01/13/2019 [facility] WBC 5.28 4.0-10.0 (607)- - RBC 4.25 3.93-6.0 Hemoglobin (Fma/CMC/CTX) 13.2 g/dL 12.0-17.0 Hematocrit (Fma/CMC/CTX) 37.9 % 35.0-50.0 Mean Corpuscular Vol 89.2 fL 80-95 Mean Corpuscular Hemoglobin 31.1 pg 25.6-32.2 Mean Corpuscular Hemo Concen 34.8 g/dL 32.2-36.0 Platelets 191 10^3/ul 163-400 RDW-CV 15.3 High 11.6-14.4 Mean Platelet Volume 9.6 fL 8.0-12.4 Absolute Neutrophils BLD 3.72 1.56-6.13 Absolute Lymphocytes 0.96 Low 1.18-3.74 Absolute Monocytes BLD Auto 0.51 0.24-0.82 Absolute Eos Blood 0.05 0.04-0.54 Absolute Basophils 0.02 0.01-0.08 Neutrophil % 70.4 % High 34.0-70.0 Lymph% 18.2 % Low 20.0-52.0 Monocytes % 9.7 % 5.0-12.0 Eos % 0.9 % 0.7-7.0 Basophil% 0.4 % 0-1.2 Laboratory test 01/13/2019 [facility] Valproic Acid 87 ug/mL 50-100 22, 23 finding 1447 [facility] (Depak[facility])(R),[place] [address] (607)- - Comprehensive 01/13/2019 [facility]ma) Sodium 134 134-149 Metabolic Prof mEq/L Potassium 4.8 mEq/L 3.6-5.5 Chloride 98 mEq/L 94-112 Carbon Dioxide 27 mEq/L 21-32 Glucose 157 mg/dL High 70-105 24 BUN 7 mg/dL 6-26 Creatinine 0.8 mg/dL 0.6-1.4 BUN/Creat Ratio 8.8 CALC 8.0-36.0 Calcium 9.2 mg/dL 8.6-10.2 Total Protein 6.8 g/dL 6.4-8.3 Albumin 4.1 g/dL 3.8-5.5 Globulin 2.7 g/dL 2.0-4.8 A/G Ratio 1.5 CALC 0.6-2.3 Alk. Phosphatase 77 U/L 22-95 Alt (SGPT) 19 U/L 7-35 Ast (Sgot) 28 U/L 5-34 Total Bilirubin 0.8 mg/dL 0.2-1.3 GFR Non- >60 ml/min/1.73m^ >=60 GFR >60 ml/min/1.73m^ >=60 Laboratory test finding 12/18/2018 [facility] Ammonia 50 mcmol/L Normal 16-53 B-Type Natriuretic Peptide BNP 248 pg/mL High <=100 CBC Auto Diff 12/18/2018 [facility] White Blood Count 5.3 10^3/uL Normal 3.5- 10.8 Red Blood Count 4.10 10^6/uL Low 4.18-5.48 Hemoglobin 12.4 g/dL Low 14.0-18.0 Hematocrit 37 % Low 42-52 Mean Corpuscular Volume 89 fL Normal 80-94 Mean Corpuscular Hemoglobin 30 pg Normal 27-31 Mean Corpuscular HGB Conc 34 g/dL Normal 31-36 Red Cell Distribution Width 16 % High 10-15 Platelet Count 247 10^3/uL Normal 150-450 Mean Platelet Volume 7.0 fL Low 7.4-10.4 Abs Neutrophils 3.5 10^3/uL Normal 1.5-7.7 Abs Lymphocytes 1.3 10^3/uL Normal 1.0-4.8 Abs Monocytes 0.4 10^3/uL Normal 0-0.8 Abs Eosinophils 0.1 10^3/uL Normal 0-0.6 Abs Basophils 0.0 10^3/uL Normal 0-0.2 Abs Nucleated RBC 0.0 10^3/uL Granulocyte % 66.5 % Lymphocyte % 23.9 % Monocyte % 7.0 % Eosinophil % 1.8 % Basophil % 0.8 % Nucleated Red Blood Cells % 0.1 Comp Metabolic Panel 12/18/2018 [facility] Sodium 129 mmol/L Low 135-145 Potassium 4.0 mmol/L Normal 3.5-5.0 Chloride 94 mmol/L Low 101-111 Co2 Carbon Dioxide 27 mmol/L Normal 22-32 Anion Gap 8 mmol/L Normal 2-11 Glucose 96 mg/dL Normal 70-100 Blood Urea Nitrogen 7 mg/dL Normal 6-24 Creatinine 0.97 mg/dL Normal 0.67-1.17 BUN/Creatinine Ratio 7.2 Low 8-20 Calcium 8.8 mg/dL Normal 8.6-10.3 Total Protein 6.5 g/dL Normal 6.4-8.9 Albumin 3.4 g/dL Normal 3.2-5.2 Globulin 3.1 g/dL Normal 2-4 Albumin/Globulin Ratio 1.1 Normal 1-3 Total Bilirubin 0.50 mg/dL Normal 0.2-1.0 Alkaline Phosphatase 92 U/L Normal 34-104 Alt 12 U/L Normal 7-52 Ast 16 U/L Normal 13-39 Egfr Non- 78.2 >60 Egfr 94.6 >60 25 Laboratory test finding 12/18/2018 [facility] Acetaminophen < 15 g/mL 26 Alcohol 67 mg/dL High <10 Salicylate < 2.50 mg/dL <30 TSH (Thyroid Stim Horm) 4.04 mcIU/mL Normal 0.34-5.60 Urinalysis Profile 12/18/2018 [facility] Urine Color Yellow Urine Appearance Cloudy Urine Specific [place] 1.006 Low 1.010-1.030 Urine pH 7.0 Normal 5-9 Urine Urobilinogen Negative Negative Urine Ketones Negative Negative Urine Protein Negative Negative Urine Leukocytes Negative Negative Urine Blood Negative Negative Urine Nitrite Negative Negative Urine Bilirubin Negative Negative Urine Glucose Negative Negative Urine Drug SCR ED 12/18/2018 [facility] Urine Amphetamine None Detected None Detect & Pain Clinic Screen Urine Barbiturates Screen None Detected None Detect Urine Benzodiazepine Screen None Detected None Detect Urine Cannabinoids Screen None Detected None Detect Urine Cocaine Screen None Detected None Detect Urine Opiates Screen None Detected None Detect Urine Phencyclidine Screen None Detected None Detect 27 Laboratory test 12/18/2018 [facility] Digoxin 0.6 ng/ml Low 0.8-2.0 finding Laboratory test 12/16/2018 [facility] Valproic Acid 44 ug/mL Low 50-100 28 , [address] (Depakote)(R), [place] [address] S (607)- - Levetiracetam (Keppra), S 53.5 ug/mL High 10.0-40.0 30 Laboratory test finding 11/24/2018 [facility] C Reactive Protein 32.52 mg/L High <8.01 Troponin I 0.01 ng/mL <0.04 31 Valproic Acid (Depakene) 35.0 g/mL Low 50-100 Alcohol < 10 mg/dL Normal <10 Blood Culture SEE RESULT BELOW 32 Comp Metabolic Panel 11/24/2018 [facility] Sodium 124 mmol/L Low 135-145 Potassium 4.3 mmol/L Normal 3.5-5.0 Chloride 92 mmol/L Low 101-111 Co2 Carbon Dioxide 25 mmol/L Normal 22-32 Anion Gap 7 mmol/L Normal 2-11 Glucose 95 mg/dL Normal 70-100 Blood Urea Nitrogen 10 mg/dL Normal 6-24 Creatinine 0.85 mg/dL Normal 0.67-1.17 BUN/Creatinine Ratio 11.8 Normal 8-20 Calcium 9.0 mg/dL Normal 8.6-10.3 Total Protein 7.5 g/dL Normal 6.4-8.9 Albumin 3.9 g/dL Normal 3.2-5.2 Globulin 3.6 g/dL Normal 2-4 Albumin/Globulin Ratio 1.1 Normal 1-3 Total Bilirubin 0.70 mg/dL Normal 0.2-1.0 Alkaline Phosphatase 114 U/L High 34-104 Alt 13 U/L Normal 7-52 Ast 17 U/L Normal 13-39 Egfr Non- 91.0 >60 Egfr 110.2 >60 33 Sputum Culture & 11/24/2018 [facility] [place] Sputum Culture SEE RESULT 34 Sensitiv Gram Stain BELOW Laboratory test 11/24/2018 [facility] [place] B-Type Natriuretic 501 pg/mL High <=100 finding Peptide BNP CBC Auto Diff 11/24/2018 [facility] [place] White Blood Count 6.6 10^3/uL Normal 3.5- 10.8 Red Blood Count 4.15 10^6/uL Low 4.18-5.48 Hemoglobin 12.7 g/dL Low 14.0-18.0 Hematocrit 37 % Low 42-52 Mean Corpuscular Volume 89 fL Normal 80-94 Mean Corpuscular Hemoglobin 31 pg Normal 27-31 Mean Corpuscular HGB Conc 34 g/dL Normal 31-36 Red Cell Distribution Width 16 % High 10.5-15 Platelet Count 238 10^3/uL Normal 150-450 Mean Platelet Volume 7.4 fL Normal 7.4-10.4 Abs Neutrophils 4.9 10^3/uL Normal 1.5-7.7 Abs Lymphocytes 0.8 10^3/uL Low 1.0-4.8 Abs Monocytes 0.7 10^3/uL Normal 0-0.8 Abs Eosinophils 0.1 10^3/uL Normal 0-0.6 Abs Basophils 0.0 10^3/uL Normal 0-0.2 Abs Nucleated RBC 0.0 10^3/uL Granulocyte % 73.9 % Lymphocyte % 12.6 % Monocyte % 11.4 % Eosinophil % 1.6 % Basophil % 0.5 % Nucleated Red Blood Cells % 0.1 Laboratory test finding 11/24/2018 [facility] [place] Lactic Acid 0.8 mmol/L Normal 0.5- 2.0 35 Arterial Blood Gas 11/24/2018 [facility] [place] PH Arterial 7.41 Normal 7.35-7.45 Pco2 Arterial 36 mmHg Normal 35-45 Po2 Arterial 89 mmHg Normal 80-100 O2 Saturation Arterial 98.3 % High 94.0-98.0 Base Excess Arterial -1.4 mmol/L Normal -2.0-2.0 36 Hco3 Arterial 23.7 mmol/L Normal 19-31 Laboratory test 11/24/2018 [facility] D Dimer 932 ng/mL High Less 37 finding Quantitative Than 230 Inr/Protime 11/24/2018 [facility] Inr 1.11 High 0.82-1.0 38 9 Laboratory test 11/04/2018 [facility] Digoxin, Serum 0.8 ng/mL 0.5-0.9 39 , 40 finding [address] [place] [address] [phone] - Basic Metabolic 10/23/2018 [facility] Kannan(fma) Sodium 128 mEq/L Low 134- 149 41 Profile Potassium 4.7 mEq/L 3.6-5.5 Chloride 91 mEq/L Low 94-112 42 Carbon Dioxide 25 mEq/L 21-32 Glucose 108 mg/dL High 70-105 43 BUN 10 mg/dL 6-26 Creatinine 0.9 mg/dL 0.6-1.4 BUN/Creat Ratio 11.1 CALC 8.0-36.0 Calcium 9.2 mg/dL 8.6-10.2 GFR Non- >60 ml/min/1.73m^ >=60 GFR >60 ml/min/1.73m^ >=60 Laboratory test 10/23/2018 [facility] Kannan(fma) Magnesium, 1.7 mEq/L 1.2- 2.1 finding Serum Laboratory test 10/23/2018 [facility] Digoxin, Serum 1.8 ng/mL High 0.5-0.9 44 finding [address] [place] [address] (799)- - CBC Auto Diff 09/24/2018 [facility] White Blood 6.1 Normal 3.5-10.8 Count 10^3/uL Red Blood Count 4.28 10^6/uL Normal 4.18-5.48 Hemoglobin 13.1 g/dL Low 14.0-18.0 Hematocrit 38 % Normal 36-46 Mean Corpuscular Volume 89 fL Normal 80-94 Mean Corpuscular Hemoglobin 31 pg Normal 27-31 Mean Corpuscular HGB Conc 34 g/dL Normal 31-36 Red Cell Distribution Width 15 % Normal 10.5-15 Platelet Count 273 10^3/uL Normal 150-450 Mean Platelet Volume 7.1 fL Low 7.4-10.4 Abs Neutrophils 3.9 10^3/uL Normal 1.5-7.7 Abs Lymphocytes 1.1 10^3/uL Normal 1.0-4.8 Abs Monocytes 0.8 10^3/uL Normal 0-0.8 Abs Eosinophils 0.4 10^3/uL Normal 0-0.6 Abs Basophils 0 10^3/uL Normal 0-0.2 Abs Nucleated RBC 0 10^3/uL Granulocyte % 63.1 % Lymphocyte % 18.0 % Monocyte % 12.4 % Eosinophil % 5.9 % Basophil % 0.6 % Nucleated Red Blood Cells % 0 Inr/Protime 09/24/2018 [facility] Inr 0.99 Normal 0.77-1.02 Laboratory test 09/24/2018 [facility] Partial Thrombo 27.8 seconds Normal 26.0- 36.3 finding Time PTT Comp Metabolic Panel 09/24/2018 [facility] Sodium 128 mmol/L Low 135-145 Potassium 4.1 mmol/L Normal 3.5-5.0 Chloride 95 mmol/L Low 101-111 Co2 Carbon Dioxide 23 mmol/L Normal 22-32 Anion Gap 10 mmol/L Normal 2-11 Glucose 88 mg/dL Normal 70-100 Blood Urea Nitrogen 16 mg/dL Normal 6-24 Creatinine 0.99 mg/dL Normal 0.67-1.17 BUN/Creatinine Ratio 16.2 Normal 8-20 Calcium 8.9 mg/dL Normal 8.6-10.3 Total Protein 7.0 g/dL Normal 6.4-8.9 Albumin 3.8 g/dL Normal 3.2-5.2 Globulin 3.2 g/dL Normal 2-4 Albumin/Globulin Ratio 1.2 Normal 1-3 Total Bilirubin 0.40 mg/dL Normal 0.2-1.0 Alkaline Phosphatase 128 U/L High 34-104 Alt 15 U/L Normal 7-52 Ast 25 U/L Normal 13-39 Egfr Non- 76.3 >60 Egfr 92.4 >60 45 Laboratory test finding 09/24/2018 [facility] Magnesium 1.7 mg/dL Low 1.9-2.7 Alcohol < 10 mg/dL Normal <10 Troponin I 0.01 ng/mL <0.04 46 Digoxin 1.5 ng/ml Normal 0.8-2.0 TSH (Thyroid Stim Horm) 7.65 mcIU/mL High 0.34-5.60 1 RESULTS VERIFIED BY REPEAT ANALYSIS 2 1 serum pour off from red top tube 3 Detection Limit = 4 <4 indicates None Detected Toxicity may occur at levels of 100-500. Measurements of free unbound valproic acid may improve the assess- ment of clinical response. 4 This test was developed and its performance characteristics determined by [employer]. It has not been cleared or approved by the Food and Drug Administration. 5 Because ethnic data is not always [...] 5 Kidney failure <15 (or dialysis) 6 REFERENCE VALUE 12.0 - 46.0 ADDITIONAL INFORMATION This test was developed and its performance characteristics determined by [facility] in a manner consistent with CLIA requirements. This test has not been cleared or approved by the U.S. Food and Drug Administration. Test Performed by: [facility] - [address] [address] 7 Therapeutic concentration: <50 ug/mL Toxic concentration: >120 ug/mL 8 REFERENCE VALUE 12.0 - 46.0 ADDITIONAL INFORMATION This test was developed and its performance characteristics determined by [facility] in a manner consistent with CLIA requirements. This test has not been cleared or approved by the U.S. Food and Drug Administration. Test Performed by: [facility] - [address] [address] 9 Because ethnic data is not always readily [...] 15-29 5 Kidney failure <15 (or dialysis) 10 FROZEN 11 Because ethnic data is not always readily [...] 15-29 5 Kidney failure <15 (or dialysis) 12 Troponin-I testing on Plasma Separator Tubes (PST) has a known false positive rate of 0.20-0.40%. All positive troponins reflex immediately to secondary confirmatory testing. Using the [employer] DxI 800 Access Immunoassay systems, the 99th percentile upper reference limit was demonstrated to be < 0.03 ng/mL. 13 Standard intensity warfarin therapeutic range: 2.0-3.0 High intensity warfarin therapeutic range: 2.5-3.5 14 [facility] Severe Sepsis and Septic Shock Management Bundle Measure requires all lactic acids initially measuring >2.0 mmol/L be repeated. 15 Presumptive Positive Presumptive positive results are unconfirmed. 16 Presumptive Positive Presumptive positive results are unconfirmed. 17 The urine specimen was tested at the listed cutoffs: Drug class test level (ng/mL) Amphetamines 500 Barbiturates 200 Benzodiazepine metabolites 200 Cocaine metabolites 150 Cannabinoids 50 Opiates 300 Pcp 25 Specimen was received without chain of custody. Results should be used for medical purposes only. 18 SEE RESULT BELOW Name: GILDA CORTEZ : [address]: William Bangura MD Acct: [id number] Unit: [id number] AGE: 64 Location: [place] [address]- Re02/18/19 SEX: M Status: ADM IN SPEC: [id number] SIENA: 02/18/19-[address] [facility] [address]: Shruti CHAU REQ: [id number] RECD: 02/18/19-1037 STATUS: MICHAEL GANT DR: Anahi Lewis MD _ SOURCE: FOOT,RIGHT SPDESC: ORDERED: MRSA/SA SSTI, Culture Stain QUERIES: Specimen Description R FOOT ULCER Procedure Result Reported Site MRSA/S. aureus SSTI PCR Final 02/18/19- 1227 ML Organism 1 MRSA NEGATIVE Organism 2 S.AUREUS NEGATIVE Wound/Misc Gram Stain Final 02/18/19- 1104 ML 1+ Neutrophils 1+ Epithelial Cells 2+ Gram Positive Cocci Wound/Misc Culture Final 02/20/19- 1418 ML Organism 1 ACINETOBACTER HAEMOLYTICUS Quantity 1+ Organism 2 NORMAL KANNAN Quantity 1+ ACINETOBACTER HAEMOLYTICUS - SIGNIFICANCE QUESTIONED. * ML - Main Lab . END OF REPORT DEPARTMENT OF PATHOLOGY, [address] [place] [address] Alirio Hawkins M.D. Director [facility] # [id number] 19 SEE RESULT BELOW Name: GILDA CORTEZ : [address]: Aurora Fitzgerald DO Acct: [id number] Unit: [id number] AGE: 64 Location: [place] [address]- Re02/18/19 SEX: M Status: ADM IN SPEC: [id number] SIENA: 02/18/19-5 [facility] [address]: Shruti CHAU REQ: [id number] RECD: 02/18/19 STATUS: RES [facility] DR: Anahi Lewis MD _ SOURCE: WOUND SPDESC:OTHER ORDERED: Culture Stain COMMENTS: R FOOT ULCER QUERIES: Specimen Description R FOOT ULCER Procedure Result Reported Site Wound/Misc Gram Stain Final 02/18/19- 1618 ML 1+ Epithelial Cells 2+ Neutrophils 1+ Gram Positive Cocci Wound/Misc Culture PENDING * ML - Main Lab . END OF REPORT DEPARTMENT OF PATHOLOGY, [address] [place] [address] Alirio Hawkins M.D. Director [facility] # [id number] 20 Standard intensity warfarin therapeutic range: 2.0-3.0 High intensity warfarin therapeutic range: 2.5-3.5 21 Because ethnic data is not always [...] 5 Kidney failure <15 (or dialysis) 22 1 serum pour off from red top tube 23 Detection Limit = 4 <4 indicates None Detected Toxicity may occur at levels of 100-500. Measurements of free unbound valproic acid may improve the assess- ment of clinical response. 24 NON-FASTING 25 Because ethnic data is not always readily [...] 15-29 5 Kidney failure <15 (or dialysis) 26 Therapeutic concentration: <50 ug/mL Toxic concentration: >120 ug/mL 27 The urine specimen was tested at the listed cutoffs: Drug class test level (ng/mL) Amphetamines 500 Barbiturates 200 Benzodiazepine metabolites 200 Cocaine metabolites 150 Cannabinoids 50 Opiates 300 Pcp 25 Specimen was received without chain of custody. Results should be used for medical purposes only. 28 2 serum pour offs from red top tubes 29 Detection Limit = 4 <4 indicates None Detected Toxicity may occur at levels of 100-500. Measurements of free unbound valproic acid may improve the assess- ment of clinical response. 30 This test was developed and its performance characteristics determined by [employer]. It has not been cleared or approved by the Food and Drug Administration. 31 Troponin-I testing on Plasma Separator Tubes (PST) has a known false positive rate of 0.20-0.40%. All positive troponins reflex immediately to secondary confirmatory testing. Using the [employer] Dx[employer] 800 Access Immunoassay systems, the 99th percentile upper reference limit was demonstrated to be < 0.03 ng/mL. 32 SEE RESULT BELOW Name: GILDA CORTEZ : [address]: William Bangura MD Acct: [id number] Unit: [id number] AGE: 63 Location: [place] [address] Re11/24/18 Dis: 11/27/18 SEX: M Status: DIS IN SPEC: [id number] SIENA: 11/24/18 [facility] [address]: Aung Alexander MD REQ: [id number] RECD: 11/24/18 STATUS: COMP [facility] DR: Louie Lewis MD _ SOURCE: BLOOD,VENO SPDESC: ORDERED: Blood Cult Procedure Result Reported Site Aerobic Culture Bottle Final 11/29/18- 0857 ML No Growth Day 5 Anaerobic Culture Bottle Final 11/29/18- 0855 ML No Growth Day 5 * ML - Main Lab . END OF REPORT DEPARTMENT OF PATHOLOGY, [address] [place] [address] Alirio Hawkins M.D. Director [facility] # [id number] 33 Because ethnic data is not always [...] [address]: William Bangura MD Acct: [id number] Unit: [id number] AGE: 63 Location: [place] [address] Re11/24/18 SEX: M Status: ADM IN SPEC: [id number] SIENA: 11/24/18 [facility] [address]: Aung Alexander MD REQ: [id number] RECD: 11/24/18 STATUS: RES [facility] DR: Louie Lewis MD _ SOURCE: SPUTUM,EXP SPDESC: ORDERED: Sputum Cult/GS Procedure Result Reported Site Sputum Smear Final 11/24/18- 1005 ML 2+ Neutrophils 2+ Nucleated Cells 1+ Epithelial Cells Mixed Morphotypes, resembling Normal Kannan Sputum Culture Preliminary 11/26/18- 1325 ML Organism 1 ENTEROBACTER SPECIES Quantity 1+ * ML - Main Lab . END OF REPORT DEPARTMENT OF PATHOLOGY, [address] [place] [address] Alirio Hawkins M.D. Director [facility] # [id number] 35 [facility] Severe Sepsis and Septic Shock Management Bundle Measure requires all lactic acids initially measuring >2.0 mmol/L be repeated. 36 Reference ranges based on room air. 37 Please note: The following may produce a false positive D Dimer test: - Rheumatoid factor greater than 60 IU/ml - Plasma hemoglobin greater than 0.05 gm/dl - Bilirubin greater than 50 mg/dl - Lipids greater than 1000 mg/dl - FDP greater than 20 ug/ml 38 Standard intensity warfarin therapeutic range: 2.0-3.0 High intensity warfarin therapeutic range: 2.5-3.5 39 1 serum pour off from red top tube 40 Concentrations above 2.0 ng/mL are generally considered toxic. Some overlap of toxic and non-toxic values have been reported. Detection Limit = 0.4 ng/mL Therapeutic range is derived from 2013 ACCF/AHA Guidelines for the Management of Heart Failure. 41 consistent w/ previous results 42 consistent w/ previous results 43 NON-FASTING 44 Concentrations above 2.0 ng/mL are generally considered toxic. Some overlap of toxic and non-toxic values have been reported. Detection Limit = 0.4 ng/mL Therapeutic range is derived from 2013 ACCF/AHA Guidelines for the Management of Heart Failure. 45 Because ethnic data is not always [...] 5 Kidney failure <15 (or dialysis) 46 Troponin-I testing on Plasma Separator Tubes (PST) has a known false positive rate of 0.20-0.40%. All positive troponins reflex immediate secondary confirmatory testing. Procedures Date Code Description Status 03/26/2017 [id number] Colonoscopy Completed 03/19/2017 [id number] Colonoscopy Completed Medical Devices Description No Information Available Encounters Type Date Location Provider Dx Diagnosis Office Visit 03/07/2019 Main Office Louie Schafer S82.51xD Disp fx of med 11:20a MD Debbie malleolus of r tibia, 7thD G40.909 Epilepsy, unsp, not intractable, without status epilepticus Office Visit 02/27/2019 6:30p Main Office Shahana Wood, L03.115 Cellulitis of PA right lower limb E72.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, unspecified I10 Essential (primary) hypertension I48.2 Chronic atrial fibrillation M25.571 Pain in right ankle and joints of right foot F10.20 Alcohol dependence, uncomplicated F41.1 Generalized anxiety disorder I25.10 Athscl heart disease of [place] coronary artery w/o ang pctrs G40.909 Epilepsy, unsp, not intractable, without status epilepticus J44.9 Chronic obstructive pulmonary disease, unspecified Office Visit 01/03/2019 1:00p Main Office Louie Schafer F41.1 Generalized MD Debbie anxiety disorder I73.9 Peripheral vascular disease, unspecified F17.210 Nicotine dependence, cigarettes, uncomplicated I10 Essential (primary) hypertension J44.9 Chronic obstructive pulmonary disease, unspecified G40.909 Epilepsy, unsp, not intractable, without status epilepticus I48.2 Chronic atrial fibrillation Office Visit 12/04/2018 12:20p Main Office Louie Steele.2 Chronic atrial MD Debbie fibrillation I73.9 Peripheral vascular disease, unspecified G40.309 Gen idiopathic epilepsy, not intractable, w/o stat epi F17.210 Nicotine dependence, cigarettes, uncomplicated I10 Essential (primary) hypertension J44.9 Chronic obstructive pulmonary disease, unspecified Office Visit 11/13/2018 12:00p Main Office Louie Steele.2 Chronic atrial MD Debbie fibrillation I73.9 Peripheral vascular disease, unspecified S01.01xD Laceration without foreign body of scalp, subs encntr W01.198A Fall same lev from slip/trip w strike agnst oth object, init Office Visit 10/23/2018 3:50p Main Office Louie Schafer I48.2 Chronic atrial MD Debbie fibrillation M25.512 Pain in left shoulder J18.8 Other pneumonia, unspecified organism Office Visit 10/09/2018 3:50p Main Office Louie Schafer J18.8 Other pneumonia , MD Debbie unspecified organism M25.512 Pain in left shoulder F41.1 Generalized anxiety disorder I73.9 Peripheral vascular disease, unspecified Assessments Date Code Description Provider 03/21/2019 S82.51xD Displaced fracture of medial malleolus Louie Lewis MD of right tibia, subsequent encounter for closed fracture with routine healing 03/07/2019 S82.51xD Displaced fracture of medial malleolus Louie Lewis MD of right tibia, subsequent encounter for closed fracture with routine healing 03/07/2019 G40.909 Epilepsy, unspecified, not intractable, Louie Lewis MD without status epilepticus 03/06/2019 G40.909 Epilepsy, unsp, not intractable, without Louie Lewis MD status epilepticus 02/27/2019 L03.115 Cellulitis of right lower limb Shahana WoodISAC 02/27/2019 E72.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, Shahana C ISAC Wood unspecified 02/27/2019 I10 Essential (primary) hypertension Shahana HanksISAC timmons 02/27/2019 I48.2 Chronic atrial fibrillation Shahanaqueenie HanksISAC timmons 02/27/2019 M25.571 Pain in right ankle and joints of right Shahana C LatonyaiainISAC foot 02/27/2019 F10.20 Alcohol dependence, uncomplicated Shahana WoodISAC 02/27/2019 F41.1 Generalized anxiety disorder Shahana C ISAC Wood 02/27/2019 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[place] Shahana C ISAC Wood coronary artery with 02/27/2019 G40.909 Epilepsy, unspecified, not intractable, ISAC Barboza without status epilepticus 02/27/2019 J44.9 Chronic obstructive pulmonary disease, Shahana C ISAC Wood unspecified 01/13/2019 G40.909 Epilepsy, unsp, not intractable, without Louie Lewis MD status epilepticus 01/03/2019 F41.1 Generalized anxiety disorder Louie Lewis MD 01/03/2019 I73.9 Peripheral vascular disease, unspecified Louie Lewis MD 01/03/2019 F17.210 Nicotine dependence, cigarettes, Louie Lewis MD uncomplicated 01/03/2019 I10 Essential (primary) hypertension Louie Lewis MD 01/03/2019 J44.9 Chronic obstructive pulmonary disease, Louie Lewis MD unspecified 01/03/2019 G40.909 Epilepsy, unspecified, not intractable, Louie Lewis MD without status epile 01/03/2019 I48.2 Chronic atrial fibrillation Louie Lewis MD 12/16/2018 G40.909 Epilepsy, unsp, not intractable, without Louie Lewis MD status epilepticus 12/04/2018 I48.2 Chronic atrial fibrillation Louie Lewis MD 12/04/2018 I73.9 Peripheral vascular disease, unspecified Louie Lewis MD 12/04/2018 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, not 12/04/2018 F17.210 Nicotine dependence, cigarettes, Louie Lewis MD uncomplicated 12/04/2018 I10 Essential (primary) hypertension Louie Lewis MD 12/04/2018 J44.9 Chronic obstructive pulmonary disease, Louie Lewis MD unspecified 11/13/2018 I48.2 Chronic atrial fibrillation Louie Lewis MD 11/13/2018 I73.9 Peripheral vascular disease, unspecified Louie Lewis MD 11/13/2018 S01.01xD Laceration without foreign body of Louie Lewis MD scalp, subsequent encount 11/13/2018 W01.198A Fall on same level from slipping, Louie Lewis MD tripping and stumbling with subsequent striking against other object, initial encounter 11/04/2018 I48.91 Unspecified atrial fibrillation Louie Lewis MD 10/23/2018 I48.2 Chronic atrial fibrillation Louie Lewis MD 10/23/2018 M25.512 Pain in left shoulder Louie Lewis MD 10/23/2018 J18.8 Other pneumonia, unspecified organism Louie Lewis MD 10/09/2018 J18.8 Other pneumonia, unspecified organism Louie Lewis MD 10/09/2018 M25.512 Pain in left shoulder Louie Lewis MD 10/09/2018 F41.1 Generalized anxiety disorder Louie Lewis MD 10/09/2018 I73.9 Peripheral vascular disease, unspecified Louie Lewis MD Plan of Treatment Future Appointment(s):04/09/2019 2:00 pm - Louie Lewis MD at Main [facility]1903/21/2019 - CARLA Simpson82.51xD Displaced fracture of medial malleolus of right tibia, subsequent encounter for closed fracture with routine healingAllComments:Medication Management Patient Understands medications he's taking? Yes No Are there Barriersto Adherence? Yes No Has the patient been asked about herbal supplements and therapies, and OTC meds? Yes No Functional Status Description No Information Available Mental Status Description No Information Available Referrals Refer to Reason for Referral Status Appt Date Visiting Nurse Services Consult and treat, internal fixation distal Sent fibula and medial melleolus. LT [address] [place] [address] [phone] [facility] Pain Clinic EVALUATE AND TREAT FOR PAIN MANAGEMENT Patient Declined [address] [facility] [address] [phone]
--- OUTSIDE RECORDS SUMMARY | 2019-04-07 12:17 | XMS REPORT | Continuity of Care Document ---
:1955 External Reference #:[id number] Author Name Louie Lewis MD Address [address] [place] [address] Care Team Providers Name Role Phone Rosales Reich MD - Cardiovascular Care Team Information Feather Mixer Disease Juan Luis Joseph MD - Surgery Care Team Information Feather Mixer Kristen Adams - Vascular Surgery Care Team Information Feather Mixer [phone] [facility] Emergency Room - Emergency Care Care Team Information Feather Mixer Visiting Nurse Services - Home Health Care Team Information Feather Mixer Louie Lewis MD - Family Care Team Information Feather Mixer [phone] Medicine Nasreen Servin - Pulmonary Disease Care Team Information Feather Mixer [phone] Alexandria Barksdale ([facility]) - Care Team Information Feather Mixer Surgery of the Hand [facility] Pain Clinic - Interventional Pain Care Team Information Feather Mixer Luis Antonio Robisno MD - Neurology Care Team Information Feather Mixer [phone] Problems Active Problems Provider Date Peripheral vascular [...] M.D. Onset: 10/26/2016 Atherosclerotic heart disease of [place] coronary Kellee Bangura M.D. Onset: artery without [...] Medications SIG Qnty Indications Ordering Date Provider Oxycodone-Acetaminophe take one by mouth 90tabs Louie Schafer 02/14/2019 n every 8 hours as MD Debbie 7.5-325mg Tablets needed for pain Lorazepam take 1 tablet by 15tabs Nato [facility], 02/07/2019 1mg Tablets mouth three times M.D. a day daily as needed for anxiety Hydrocodone-Acetaminop 1 by mouth every 21tabs Karena Romeo 01/01/2019 hen 8 hours as needed JEFFREY Cantor 5-325mg Tablets Tamsulosin HCL take one capsule 30caps E87.1 Kellee Bangura, 08/22/2018 0.4mg by mouth once M.D. Capsules daily Zoloft 2 tab by mouth 60tabs Kellee Bangura, 06/28/2017 100mg Tablets every day M.D. Cilostazol Take One Tablet 60tabs I73.9 Jamar [...] inhale contents Unknown 18mcg one of capsule by Capsules mouth twice daily Aspirin Low Strength Unknown 81mg Chewtabs Atorvastatin Calcium 1 by mouth every Unknown 20mg day Tablets Diltiazem CD 1 by mouth every Unknown 240mg Caps day ER 24HR Folic Acid 1 by mouth every Unknown 1mg Tablets day Digoxin 150mcg 1 po qd Unknown Incruse Ellipta 1 puff daily Unknown 62.5mcg/Inh Aerosol Divalproex Sodium ER Take Three 90tabs Louie Keating Tablets By Mouth Radames Lou 500mg Tablets ER 24HR Once Daily In The Morning History Medications Fluticasone 1 spray each 16gm Casandra Ann 11/23/2018 - Propionate nostril every JEFFREY Michelle 12/04/2018 day-generic 50mcg/Act Suspension Digoxin 1 by mouth every Louie Schafer 11/13/2018 - 250mcg day MD Debbie 11/13/2018 Tablets Hydrocodone-Acetami 1 tab by mouth 21tabs S01.01xD Louie Schafer 11/13/2018 - nophen every 8 hours as MD Debbie 12/04/2018 10-325mg needed Tablets Immunizations CPT Code Status Date Vaccine Lot # [id number] Given 04/05/2018 Pneumococcal Immunization [id number] Given 04/05/2018 Influenza Vac, Quadrivalent, Slit Virus, Im [id number] Given 05/18/2016 Influenza Vac, Quadrivalent, Slit Virus, Im [id number] 10917 Given 05/31/2015 Influenza Vac, Quadrivalent, Slit Virus, Im [id number] Given 05/05/2014 Pneumococcal Conjugate Vacc-[id number] Given 03/25/2012 DO Not Use Split Influenza Virus Vaccine Vital Signs Date Vital Result Comment 03/07/2019 11:38am BP Systolic 124 mmHg BP Diastolic 66 mmHg Heart Rate 94 /min Body Temperature 97.7 F Respiratory Rate 17 /min Height 68.5 inches 5'8.50" Weight 158.00 lb BMI (Body Mass Index) 23.7 kg/m2 02/27/2019 6:12pm BP Systolic 150 mmHg BP Diastolic 98 mmHg Heart Rate 80 /min Body Temperature 98.3 F Respiratory Rate 18 /min Height 68.5 inches 5'8.50" Weight 155.00 lb BMI (Body Mass Index) 23.2 kg/m2 Results Test Date Facility Test Result [...] ml/min/1.73m^ >=60 CBC Electronic Fma 03/06/2019 [facility](a) WBC 6.0 x10^3/UL 4.0- 10.0 RBC 4.12 x10^6/UL 3.93-6.00 HGB 13.0 g/dL 12.0-17.0 HCT 38 % 35-50 MCV 92.7 fL 80.0-95.0 MCH 31.6 pg 25.6-32.2 MCHC 34.0 g/dL 32.2-36.0 RDW-CV 14.8 % High 11.6-14.4 PLT 230 x10^3/UL 163-400 MPV 10.7 fL 9.4-12.4 Garret# 3.99 x10^3/UL 1.56-6.13 Lymph# 1.24 x10^3/UL 1.18-3.74 [place]# 0.61 x10^3/UL 0.24-0.82 Eos # 0.1 x10^3/UL 0.0-0.5 Baso # 0.04 x10^3/UL 0.01-0.08 Garret% 66.1 % 34.0-70.0 Lymph % 20.5 % 20.0-52.0 [place]% 10.1 % 5.0-12.0 Eos% 2.3 % 0.7-7.0 Baso% 0.7 % 0.1-1.2 Laboratory test 03/06/2019 [facility] Valproic Acid 33 ug/mL Low 50-100 2, 3 finding [address] [facility] (Depakote)(R),[place] [address] (234)- - Levetiracetam Serum <pending> CBC Auto Diff 03/04/2019 [facility] White Blood Count 7.1 10^3/uL Normal 3.5- [...] Cells % 0.0 Laboratory test finding 03/04/2019 [facility] Ammonia 31 mcmol/L Normal 16-53 Comp Metabolic Panel 03/04/2019 [facility] Sodium 132 mmol/L Low 135-145 Potassium 3.9 [...] Egfr Non- 101.7 >60 Egfr 123.1 >60 4 Laboratory test finding 03/04/2019 [facility] Levetiracetam (Keppra) 35.9 g/mL 5 Laboratory test finding 03/01/2019 [facility] Acetaminophen < 15 g/mL 6 Alcohol < 10 mg/dL Normal <10 Levetiracetam (Keppra) 60.3 g/mL Abnormal 7 Comp Metabolic Panel 03/01/2019 [facility] Sodium 128 mmol/L Low 135-145 Potassium 3.7 [...] Egfr Non- 51.9 >60 Egfr 62.8 >60 8 CBC Auto Diff 03/01/2019 [facility] White Blood Count 5.3 10^3/uL Normal 3.5- [...] Cells % 0.0 Comprehensive Metabolic 02/27/2019 [facility](fma) Sodium 134 mEq/L 134-149 Prof Potassium 4.4 [...] ml/min/1.73m^ >=60 CBC Electronic (a New) 02/27/2019 [facility] WBC 5.62 4.0-10.0 (607)- - RBC 4.48 [...] 02/27/2019 [facility] Ammonia, Plasma 58 g/dL 27-102 9 finding [address] [place] [address] (025)- - Urinalysis Profile 02/18/2019 [facility] Urine Color Yessica Urine Appearance Clear Urine Specific [place] 1.017 Normal 1.010-1.030 Urine pH 7.0 Normal 5-9 Urine Urobilinogen Positive Abnormal Negative Urine Ketones Trace Abnormal Negative Urine Protein Negative Negative Urine Leukocytes Negative Negative Urine Blood Negative Negative Urine Nitrite Negative Negative Urine Bilirubin Negative Negative Urine Glucose Negative Negative Laboratory test finding 02/18/2019 [facility] Magnesium 1.5 mg/dL Low 1.9-2.7 Creatine Kinase(CK) 60 U/L Normal 10-223 C Reactive Protein 72.96 mg/L High <8.01 Alcohol < 10 mg/dL Normal <10 Comp Metabolic Panel 02/18/2019 [facility] Sodium 130 mmol/L Low 135-145 Potassium 3.6 [...] Egfr Non- 93.3 >60 Egfr 112.9 >60 10 Laboratory test finding 02/18/2019 [facility] Troponin I 0.01 ng/mL <0.04 11 Inr/Protime 02/18/2019 [facility] Inr 1.20 High 0.82-1.09 12 Laboratory test finding 02/18/2019 [facility] Ammonia 69 mcmol/L High 16-53 Lactic Acid 0.8 mmol/L Normal 0.5-2.0 13 CBC Auto Diff 02/18/2019 [facility] White Blood Count 5.6 10^3/uL Normal 3.5- [...] % 0.0 Urine Drug SCR ED 02/18/2019 [facility] Urine Amphetamine None Detected None Detect & Pain Clinic Screen Urine Barbiturates Screen None Detected None Detect Urine Benzodiazepine Screen Presumptive Posi <SEE NOTE> Abnormal None Detect 14 Urine Cannabinoids Screen Presumptive Posi <SEE NOTE> Abnormal None Detect 15 Urine Cocaine Screen None Detected None Detect Urine Opiates Screen None Detected None Detect Urine Phencyclidine Screen None Detected None Detect 16 Laboratory test 02/18/2019 [facility] MRSA/S. aureus SEE RESULT 17 finding Ssti PCR BELOW Wound Culture/Sensi 02/18/2019 [facility] Wound/Misc SEE RESULT 18 Culture-Gram BELOW Stain CBC Auto Diff 01/19/2019 [facility] White Blood 4.0 10^3/uL Normal 3.5-10.8 Count [...] Cells % 0.1 Type & Screen 01/19/2019 [facility] Patient Blood Type AB Negative Antibody Screen NEGATIVE Inr/Protime 01/19/2019 [facility] Inr 1.08 Normal 0.82-1.09 19 Laboratory test 01/19/2019 [facility] Partial Thrombo 31.5 seconds Normal 26.0- 38.0 finding Time PTT Comp Metabolic Panel 01/19/2019 [facility] Sodium 129 mmol/L Low 135-145 Potassium 4.1 [...] Egfr Non- 57.8 >60 Egfr 69.9 >60 20 Laboratory test finding 01/19/2019 [facility] Digoxin 1.3 ng/ml Normal 0.8-2.0 Valproic Acid (Depakene) 92.0 g/mL Normal 50-100 Alcohol < 10 mg/dL Normal <10 CBC Electronic (Fma New) 01/13/2019 [facility] WBC 5.28 4.0-10.0 (607)- - RBC 4.25 [...] 01/13/2019 [facility] Valproic Acid 87 ug/mL 50-100 21, [address] (Depakote)(R),[place] [address] (607)- - Comprehensive 01/13/2019 [facility](fma) Sodium 134 134-149 Metabolic Prof mEq/L Potassium 4.8 mEq/L 3.6-5.5 Chloride 98 mEq/L 94-112 Carbon Dioxide 27 mEq/L 21-32 Glucose 157 mg/dL High 70-105 23 BUN 7 mg/dL 6-26 Creatinine 0.8 mg/dL [...] >60 ml/min/1.73m^ >=60 Laboratory test finding 12/18/2018 [facility] Ammonia 50 mcmol/L Normal 16-53 B-Type Natriuretic Peptide BNP 248 pg/mL High <=100 CBC Auto Diff 12/18/2018 [facility] White Blood Count 5.3 10^3/uL Normal 3.5- [...] Cells % 0.1 Comp Metabolic Panel 12/18/2018 [facility] Sodium 129 mmol/L Low 135-145 Potassium 4.0 [...] Egfr Non- 78.2 >60 Egfr 94.6 >60 24 Laboratory test finding 12/18/2018 [facility] Acetaminophen < 15 g/mL 25 Alcohol 67 mg/dL High <10 Salicylate < 2.50 mg/dL <30 TSH (Thyroid Stim Horm) 4.04 mcIU/mL Normal 0.34-5.60 Urinalysis Profile 12/18/2018 [facility] Urine Color Yellow Urine Appearance Cloudy Urine Specific [place] 1.006 Low 1.010-1.030 Urine pH 7.0 Normal 5-9 Urine Urobilinogen Negative Negative Urine Ketones Negative Negative Urine Protein Negative Negative Urine Leukocytes Negative Negative Urine Blood Negative Negative Urine Nitrite Negative Negative Urine Bilirubin Negative Negative Urine Glucose Negative Negative Urine Drug SCR ED 12/18/2018 [facility] Urine Amphetamine None Detected None Detect & Pain Clinic Screen Urine Barbiturates Screen None Detected None Detect Urine Benzodiazepine Screen None Detected None Detect Urine Cannabinoids Screen None Detected None Detect Urine Cocaine Screen None Detected None Detect Urine Opiates Screen None Detected None Detect Urine Phencyclidine Screen None Detected None Detect 26 Laboratory test 12/18/2018 [facility] Digoxin 0.6 ng/ml Low 0.8-2.0 finding Laboratory test 12/16/2018 [facility] Valproic Acid 44 ug/mL Low 50-100 27 , 28 finding [address] [facility] (Depakote)(R), [place] [address] S (607)- - Levetiracetam (Keppra), S 53.5 ug/mL High 10.0-40.0 29 Laboratory test finding 11/24/2018 [facility] C Reactive Protein 32.52 mg/L High <8.01 Troponin I 0.01 ng/mL <0.04 30 Valproic Acid (Depakene) 35.0 g/mL Low 50-100 Alcohol < 10 mg/dL Normal <10 Blood Culture SEE RESULT BELOW 31 Comp Metabolic Panel 11/24/2018 [facility] Sodium 124 mmol/L Low 135-145 Potassium 4.3 [...] Egfr Non- 91.0 >60 Egfr 110.2 >60 32 Sputum Culture & 11/24/2018 [facility] Sputum Culture SEE RESULT 33 Sensitiv Gram Stain BELOW Laboratory test 11/24/2018 [facility] B-Type Natriuretic 501 pg/mL High <=100 finding Peptide BNP CBC Auto Diff 11/24/2018 [facility] White Blood Count 6.6 10^3/uL Normal 3.5- [...] Cells % 0.1 Laboratory test finding 11/24/2018 [facility] Lactic Acid 0.8 mmol/L Normal 0.5- 2.0 34 Arterial Blood Gas 11/24/2018 [facility] PH Arterial 7.41 Normal 7.35-7.45 Pco2 Arterial 36 mmHg Normal 35-45 Po2 Arterial 89 mmHg Normal 80-100 O2 Saturation Arterial 98.3 % High 94.0-98.0 Base Excess Arterial -1.4 mmol/L Normal -2.0-2.0 35 Hco3 Arterial 23.7 mmol/L Normal 19-31 Laboratory test 11/24/2018 [facility] D Dimer 932 ng/mL High Less 36 finding Quantitative Than 230 Inr/Protime 11/24/2018 [facility] Inr 1.11 High 0.82-1.0 37 9 Laboratory test 11/04/2018 [facility] Digoxin, Serum 0.8 ng/mL 0.5-0.9 38 , 39 finding [address] [place] [address] (475)- - Basic Metabolic 10/23/2018 [facility]) Sodium 128 mEq/L Low 134- 149 40 Profile Potassium 4.7 mEq/L 3.6-5.5 Chloride 91 mEq/L Low 94-112 41 Carbon Dioxide 25 mEq/L 21-32 Glucose 108 mg/dL High 70-105 42 BUN 10 mg/dL 6-26 Creatinine 0.9 mg/dL 0.6-1.4 BUN/Creat Ratio 11.1 CALC 8.0-36.0 Calcium 9.2 mg/dL 8.6-10.2 GFR Non- >60 ml/min/1.73m^ >=60 GFR >60 ml/min/1.73m^ >=60 Laboratory test 10/23/2018 [facility](fma) Magnesium, 1.7 mEq/L 1.2- 2.1 finding Serum Laboratory test 10/23/2018 [facility] Digoxin, Serum 1.8 ng/mL High 0.5-0.9 43 finding [address] [place] [address] (607)- - CBC Auto Diff 09/24/2018 [facility] White Blood 6.1 Normal 3.5-10.8 Count 10^3/uL [...] Red Blood Cells % 0 Inr/Protime 09/24/2018 [facility] Inr 0.99 Normal 0.77-1.02 Laboratory test 09/24/2018 [facility] Partial Thrombo 27.8 seconds Normal 26.0- 36.3 finding Time PTT Comp Metabolic Panel 09/24/2018 [facility] Sodium 128 mmol/L Low 135-145 Potassium 4.1 [...] Egfr Non- 76.3 >60 Egfr 92.4 >60 44 Laboratory test finding 09/24/2018 [facility] Magnesium 1.7 mg/dL Low 1.9-2.7 Alcohol < 10 mg/dL Normal <10 Troponin I 0.01 ng/mL <0.04 45 Digoxin 1.5 ng/ml Normal 0.8-2.0 TSH (Thyroid Stim Horm) 7.65 mcIU/mL High 0.34-5.60 1 RESULTS VERIFIED BY REPEAT ANALYSIS 2 1 serum pour off from red top tube 3 Detection Limit = 4 <4 indicates None Detected Toxicity may occur at levels of 100-500. Measurements of free unbound valproic acid may improve the assess- ment of clinical response. 4 Because ethnic data is not always readily [...] 15-29 5 Kidney failure <15 (or dialysis) 5 REFERENCE VALUE 12.0 - 46.0 ADDITIONAL INFORMATION This test was developed and its performance characteristics determined by [facility] in a manner consistent with CLIA requirements. This test has not been cleared or approved by the U.S. Food and Drug Administration. Test Performed by: [facility] [place] [address] 6 Therapeutic concentration: <50 ug/mL Toxic concentration: >120 ug/mL 7 REFERENCE VALUE 12.0 - 46.0 ADDITIONAL INFORMATION This test was developed and its performance characteristics determined by [facility] in a manner consistent with CLIA requirements. This test has not been cleared or approved by the U.S. Food and Drug Administration. Test Performed by: [facility] [place] - [address] [address] 8 Because ethnic data is not always readily [...] 15-29 5 Kidney failure <15 (or dialysis) 9 FROZEN 10 Because ethnic data is not always [...] 5 Kidney failure <15 (or dialysis) 11 Troponin-I testing on Plasma Separator Tubes (PST) has a known false positive rate of 0.20-0.40%. All positive troponins reflex immediately to secondary confirmatory testing. Using the [employer] DxI 800 Access Immunoassay systems, the 99th percentile upper reference limit was demonstrated to be < 0.03 ng/mL. 12 Standard intensity warfarin therapeutic range: 2.0-3.0 High intensity warfarin therapeutic range: 2.5-3.5 13 [facility] Severe Sepsis and Septic Shock Management Bundle Measure requires all lactic acids initially measuring >2.0 mmol/L be repeated. 14 Presumptive Positive Presumptive positive results are unconfirmed. 15 Presumptive Positive Presumptive positive results are unconfirmed. 16 The urine specimen was tested at the listed cutoffs: Drug class test level (ng/mL) Amphetamines 500 Barbiturates 200 Benzodiazepine metabolites 200 Cocaine metabolites 150 Cannabinoids 50 Opiates 300 Pcp 25 Specimen was received without chain of custody. Results should be used for medical purposes only. 17 SEE RESULT BELOW Name: GILDA CORTEZ : [address]: William Bangura MD Acct: [id number] Unit: [id number] AGE: 64 Location: [place] [address]- Re02/18/19 SEX: M Status: ADM IN SPEC: [id number] SIENA: 02/18/19-[address] [facility] [address]: Shruti CHAU REQ: [id number] RECD: 02/18/19 STATUS: COMP [facility] DR: Anahi Lewis MD _ SOURCE: FOOT,RIGHT [...] . END OF REPORT DEPARTMENT OF PATHOLOGY, [address] [place] [address] Alirio Hawkins M.D. Director [facility] # [id number] 18 SEE RESULT BELOW Name: GILDA CORTEZ : [address]: Aurora Fitzgerald DO Acct: [id number] Unit: [id number] AGE: 64 Location: [place] [address] Re02/18/19 SEX: M Status: ADM IN SPEC: [id number] SIENA: 02/18/19-[address] [facility] [address]: Shruti CHAU REQ: [id number] RECD: 02/18/19 STATUS: RES OT DR: Anahi Lewis MD _ SOURCE: WOUND SPDESC:OTHER ORDERED: Culture Stain COMMENTS: R FOOT ULCER QUERIES: Specimen Description R FOOT ULCER Procedure Result Reported Site Wound/Misc Gram Stain Final 02/18/19- 1618 ML 1+ Epithelial Cells 2+ Neutrophils 1+ Gram Positive Cocci Wound/Misc Culture PENDING * ML - Main Lab . END OF REPORT DEPARTMENT OF PATHOLOGY, [address] [place] [address] Alirio Hawkins M.D. Director [facility] # [id number] 19 Standard intensity warfarin therapeutic range: 2.0-3.0 High intensity warfarin therapeutic range: 2.5-3.5 20 Because ethnic data is not always [...] 5 Kidney failure <15 (or dialysis) 21 1 serum pour off from red top tube 22 Detection Limit = 4 <4 indicates None Detected Toxicity may occur at levels of 100-500. Measurements of free unbound valproic acid may improve the assess- ment of clinical response. 23 NON-FASTING 24 Because ethnic data is not always [...] 5 Kidney failure <15 (or dialysis) 25 Therapeutic concentration: <50 ug/mL Toxic concentration: >120 ug/mL 26 The urine specimen was tested at the listed cutoffs: Drug class test level (ng/mL) Amphetamines 500 Barbiturates 200 Benzodiazepine metabolites 200 Cocaine metabolites 150 Cannabinoids 50 Opiates 300 Pcp 25 Specimen was received without chain of custody. Results should be used for medical purposes only. 27 2 serum pour offs from red top tubes 28 Detection Limit = 4 <4 indicates None Detected Toxicity may occur at levels of 100-500. Measurements of free unbound valproic acid may improve the assess- ment of clinical response. 29 This test was developed and its performance characteristics determined by [employer]. It has not been cleared or approved by the Food and Drug Administration. 30 Troponin-I testing on Plasma Separator Tubes (PST) has a known false positive rate of 0.20-0.40%. All positive troponins reflex immediately to secondary confirmatory testing. Using the [employer] DxI 800 Access Immunoassay systems, the 99th percentile upper reference limit was demonstrated to be < 0.03 ng/mL. 31 SEE RESULT BELOW Name: GILDA CORTEZ : [address]: William Bangura MD Acct: [id number] Unit: [id number] AGE: 63 Location: [place] [address] Re11/24/18 Dis: 11/27/18 SEX: M Status: DIS IN SPEC: [id number] SIENA: 11/24/[address]: Aung Alexander MD REQ: [id number] RECD: 11/24/18 STATUS: MICHAEL GANT DR: Louie Lewis MD _ SOURCE: BLOOD,VENO SPDES: ORDERED: Blood Cult Procedure Result Reported Site Aerobic Culture Bottle Final 11/29/18- 0857 ML No Growth Day 5 Anaerobic Culture Bottle Final 11/29/18- 0855 ML No Growth Day 5 * ML - Main Lab . END OF REPORT DEPARTMENT OF PATHOLOGY, [address] [place] [address] Alirio Hawkins M.D. Director [facility] # [id number] 32 Because ethnic data is not always [...] 5 Kidney failure <15 (or dialysis) 33 SEE RESULT BELOW Name: GILDA CORTEZ : [address]: William Bangura MD Acct: [id number] Unit: [id number] AGE: 63 Location: [place] [address] Re11/24/18 SEX: M Status: ADM IN SPEC: [id number] SIENA: 11/24/[address]: Aung Alexander MD REQ: [id number] RECD: 11/24/18 STATUS: RES ALFREDA DR: Louie Lewis MD _ SOURCE: SPUTUM,EXP SPDESC: ORDERED: Sputum Cult/GS Procedure Result Reported Site Sputum Smear Final 11/24/18- 1005 ML 2+ Neutrophils 2+ Nucleated Cells 1+ Epithelial Cells Mixed Morphotypes, resembling Normal Kannan Sputum Culture Preliminary 11/26/18- 1325 ML Organism 1 ENTEROBACTER SPECIES Quantity 1+ * ML - Main Lab . END OF REPORT DEPARTMENT OF PATHOLOGY, [address] [place] [address] Alirio Hawkins M.D. Director [facility] # [id number] 34 [facility] Severe Sepsis and Septic Shock Management Bundle Measure requires all lactic acids initially measuring >2.0 mmol/L be repeated. 35 Reference ranges based on room air. 36 Please note: The following may produce a false positive D Dimer test: - Rheumatoid factor greater than 60 IU/ml - Plasma hemoglobin greater than 0.05 gm/dl - Bilirubin greater than 50 mg/dl - Lipids greater than 1000 mg/dl - FDP greater than 20 ug/ml 37 Standard intensity warfarin therapeutic range: 2.0-3.0 High intensity warfarin therapeutic range: 2.5-3.5 38 1 serum pour off from red top tube 39 Concentrations above 2.0 ng/mL are generally considered toxic. Some overlap of toxic and non-toxic values have been reported. Detection Limit = 0.4 ng/mL Therapeutic range is derived from 2013 ACCF/AHA Guidelines for the Management of Heart Failure. 40 consistent w/ previous results 41 consistent w/ previous results 42 NON-FASTING 43 Concentrations above 2.0 ng/mL are generally considered toxic. Some overlap of toxic and non-toxic values have been reported. Detection Limit = 0.4 ng/mL Therapeutic range is derived from 2013 ACCF/AHA Guidelines for the Management of Heart Failure. 44 Because ethnic data is not always readily [...] 15-29 5 Kidney failure <15 (or dialysis) 45 Troponin-I testing on Plasma Separator Tubes (PST) has a known false positive rate of 0.20-0.40%. All positive troponins reflex immediate secondary confirmatory testing. Procedures Date Code Description Status 03/26/2017 [id number] Colonoscopy Completed 03/19/2017 [id number] Colonoscopy Completed Medical Devices Description No Information Available Encounters Type Date Location Provider Dx Diagnosis Office Visit 02/27/2019 Main Office ISAC Barboza L03.115 Cellulitis of right 6:30p lower limb E72.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, unspecified I10 Essential (primary) hypertension I48.2 Chronic atrial fibrillation M25.571 Pain in right ankle and joints of right foot F10.20 Alcohol dependence, uncomplicated F41.1 Generalized anxiety disorder I25.10 Athscl heart disease of [place] coronary artery w/o ang pctrs G40.909 Epilepsy, [...] Office Visit 12/04/2018 12:20p Main Office Louie Schafer I48.2 Chronic atrial MD Debbie fibrillation I73.9 Peripheral [...] Office Visit 10/23/2018 3:50p Main Office Louie Meade48.2 Chronic atrial MD Debbie fibrillation M25.512 Pain in left shoulder J18.8 Other pneumonia, unspecified organism Office Visit 10/09/2018 3:50p Main Office Louie Neal18.8 Other pneumonia , MD Debbie unspecified organism M25.512 Pain in left shoulder F41.1 Generalized anxiety disorder I73.9 Peripheral vascular disease, unspecified Assessments Date Code Description Provider 03/07/2019 S82.51xD Displaced fracture of medial malleolus Louie Lewis MD of right tibia, subsequent encounter for closed fracture with routine healing 03/07/2019 G40.909 Epilepsy, unspecified, not intractable, Louie Lewis MD without status epilepticus 03/06/2019 G40.909 Epilepsy, unsp, not intractable, without Louie Lewis MD status epilepticus 02/27/2019 L03.115 Cellulitis of right lower limb ISAC Barboza 02/27/2019 E72.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, ISAC Barboza unspecified 02/27/2019 I10 Essential (primary) hypertension ISAC Barboza 02/27/2019 I48.2 Chronic atrial fibrillation [facility] 02/27/2019 M25.571 Pain in right ankle and joints of right [facility] foot 02/27/2019 F10.20 Alcohol dependence, uncomplicated [facility] 02/27/2019 F41.1 Generalized anxiety disorder [facility] 02/27/2019 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[place] [facility] coronary artery with 02/27/2019 G40.909 Epilepsy, unspecified, not intractable, [facility] without status epilepticus 02/27/2019 J44.9 Chronic obstructive pulmonary disease, [facility] Bar[facility] unspecified 01/13/2019 G40.909 Epilepsy, unsp, not intractable, [...] Lewis MD Plan of Treatment Future Appointment(s):04/09/2019 12:30 pm - Louie Lewis MD at [facility]8103/07/2019 - Louie Lewis, [id number] Displaced fracture of medial malleolus of right tibia, subsequent encounter for closed fracture with routine [id number] Epilepsy, unspecified, not intractable, without status epilepticusAllComments:Medication Management Patient Understands medications he' s taking? Yes No Are there Barriersto Adherence? Yes No Has the patient been asked about herbal supplements and therapies, and OTC meds? Yes No Functional Status Description No Information Available Mental Status Description No Information Available Referrals Refer to Reason for Referral Status Appt Date Visiting Nurse Services Consult and treat, internal fixation distal Sent fibula and medial melleolus. LT [address] [place] [address] [phone] [facility] EVALUATE AND TREAT FOR PAIN MANAGEMENT Patient Declined Dates [facility] [id number] [phone]
--- OUTSIDE RECORDS SUMMARY | 2019-04-07 12:17 | XMS REPORT | Continuity of Care Document ---
:1955 External Reference #:[id number] Author Name William Moe M.D. 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 - Care Team Information Cattle Trader [phone] Gastroenterology Problems Active Problems Provider Date Epilepsy Dereck Kirby M.D. Onset: 03/14/2011 Benign essential hypertension Dereck Kirby M.D. Onset: 03/14/2011 Idiopathic peripheral neuropathy Dereck Kirby M.D. Onset: 03/14/2011 Tobacco user Dereck Kirby M.D. Onset: 03/14/2011 Hypo-osmolality and or hyponatremia Dereck Kirby M.D. Onset: 03/14/2011 Hypoglycemia Dereck Kirby M.D. Onset: 03/14/2011 Visual disturbance Dereck Kirby M.D. Onset: 03/14/2011 Precordial pain Dereck Kirby M.D. Onset: 07/25/2011 Chronic obstructive lung disease Dereck Kirby M.D. Onset: 07/25/2011 Mixed hyperlipidemia Dereck Kirby M.D. Onset: 07/25/2011 Blood chemistry abnormal Dereck Kirby M.D. Onset: 09/18/2011 Essential hypertension Dereck Kirby M.D. Onset: 09/18/2011 Bipolar disorder Dereck Kirby M.D. Onset: 11/01/2012 Depressive disorder Colten Vargas M.D. Onset: 07/22/2014 Full respiratory system examination Nasreen Servin MD Onset: 03/31/2015 Chronic obstructive lung disease Nasreen Servin MD Onset: 03/31/2015 Disorder of lung Nasreen Servin MD Onset: 04/10/2016 Atrial fibrillation Regulo Moreno M.D. Onset: 06/13/2018 Alcohol abuse, uncomplicated Regulo Moreno M.D. Onset: 06/13/2018 Seizure Kimberly Farrell NP Onset: 06/11/2018 Feeling suicidal Kimberly Farrell NP Onset: 06/11/2018 Disorder of posterior pituitary Regulo Moreno M.D. Onset: 06/14/2018 Alcohol abuse with other alcohol-induced Regulo Moreno M.D. Onset: 01/2018 disorder Cellulitis of right lower limb William Moe M.D. Onset: 03/20/2019 Displaced bimalleolar fracture of right William Moe M.D. Onset: 2018 lower leg, subsequent encounter for closed fracture with routine healing Social History Type Date Description Comments Sex Unknown Tobacco Use Start: Unknown Current Cigarette 1 pack plus per day Smoker 1 Pack Daily Smoking Status Reviewed: 03/20/19 Current Cigarette 1 pack plus per day Smoker 1 Pack Daily ETOH Use Heavy alcohol use in occ drinks as of the 08/03/14 ETOH Use 06/13/2016 consumes 2 six packs per week ETOH Use 06/13/2016 Consumes liquor 2 times per week ETOH Use 6 beers daily November 2018 Tobacco Use Start: Unknown Patient is a current 1 pack plus per day smoker, smokes every day Recreational Drug Use Regularly uses Marijuana Exercise Type/Frequency Does not exercise Allergies, Adverse Reactions, Alerts Description No Known Drug Allergies Medications Active Medications SIG Qnty Indications Ordering Date Provider Metoprolol Succinate 1 by mouth every 30tabs Celestina Rasmussen, 12/25/2018 ER day N.P. 50mg Tablets ER 24HR Cardizem CD 1 by mouth every 30caps Celestina Rasmussen, 12/25/2018 240mg Caps day N.P. ER 24HR Zoloft Pt takes 2 tabs by Unknown 12/24/2018 100mg Tablets mouth daily Lorazepam 1 tab by mouth at Unknown 12/24/2018 2mg Tablets bedtime, as needed Digoxin 1 by mouth every 90tabs Celestina Rasmussen, 11/11/2018 125mcg Tablets day N.P. Flomax 1 by mouth every Unknown 10/13/2018 0.4mg Capsules day Levetiracetam Take One Tablet By 90tabs G40.909 Reg Echeverria 11/20/2017 750mg Mouth Three Times Radames Horton Tablets Daily Incruse Ellipta Use One Inhalation 30units Nasreen Servin, 08/14/2017 Every Day 62.5mcg/Inh Aerosol Breo Ellipta 1 puff inhaled 60units Nasreen Servin, 03/30/2015 daily 100-25mcg/Inh Aerosol Oxycodone-Acetaminoph Debbie, en Louie Rios MD 7.5-325mg Tablets Belsomra Debbie, 20mg Tablets Louie Rios MD Thiamine HCL 1 by mouth every Unknown 100mg day Tablets Divalproex Sodium Unknown Atorvastatin Calcium 1 by mouth every Unknown day 20mg Tablets Aspirin chew one tablet by Unknown 81mg Chewtabs mouth every day Aripiprazole 1 by mouth every Unknown 5mg day Tablets Acetaminophen ER 1 by mouth twice a Unknown 650mg day Tablets ER Fluticasone as needed Casandra Michelle Propionate A, N.P. 50mcg/Act Suspension Cilostazol 2 tabs by mouth Unknown 100mg once daily Tablets History Medications Methylprednisolone 4mg Unknown 12/24/2018 - 2018 Tablets Medications Administered in Office Medication SIG Qnty Indications Ordering Provider Date Inj, Regadenoson, 0.1 MG Simone Barboza, DO [facility] 04/14/2015 Injection Inj, Regadenoson, 0.1 MG Rosales Reich M.D. 04/14/2015 Injection Technetium TC 99M Simone Barboza, DO [facility] 04/14/2015 Tetrofosmin, Per Unit Dose Up To 40 Millicuries Injection Technetium TC 99M Rosales Reich M.D. 04/14/2015 Tetrofosmin, Per Unit Dose Up To 40 Millicuries Injection Influenza Virus Vaccine Unknown 04/15/2014 Injection Immunizations CPT Code Status Date Vaccine Lot # 33475 Given 05/05/2014 Pneumococcal Conjugate Vaccine 13 Valent For [id number] Intramuscular Use Q2038 Given 03/25/2012 Fluzone Vaccine [id number] Vital Signs Date Vital Result Comment 03/20/2019 10:47am Height 69.5 inches 5'9.50" Heart Rate 88 /min BP Systolic 122 mmHg BP Diastolic 82 mmHg Respiratory Rate 16 /min Body Temperature 97.9 F Pain Level 9 02/04/2019 10:51am Height 69.5 inches 5'9.50" Weight 167.00 lb Heart Rate 70 /min BP Systolic 116 mmHg BP Diastolic 70 mmHg Body Temperature 97.9 F Pain Level 7 BMI (Body Mass Index) 24.3 kg/m2 Results Description No Information Available Procedures Date Code Description Status 01/20/2019 70465 ORIF Open TX Bimalleolar Ankle FX Includes Internal Completed Fixation 01/20/2019 87640 ORIF Open TX Bimalleolar Ankle FX Includes Internal Completed Fixation 01/10/2019 50752 EKG Tracing & Interpretation Completed 01/10/2019 59590 EKG Tracing & Interpretation Completed 12/25/2018 16658 EKG Tracing & Interpretation Completed 12/18/2018 13571 EKG, Interpretation Only Completed 11/25/2018 31767 ECHO Transthorasic Realtime 2D W Doppler & Color Flow Completed Hosp 11/11/2018 29229 EKG Tracing & Interpretation Completed 10/14/2018 28720 EKG Tracing & Interpretation Completed 10/04/2018 53409 Pace Maker Eval W/Iterative Adjment Dual Lead Completed 10/04/2018 06953 Pace Maker Eval W/Iterative Adjment Dual Lead Completed 09/25/2018 49497 ECHO Transthorasic Realtime 2D W Doppler & Color Flow Completed Hosp 07/09/2004 28779398 Colonoscopy Completed Medical Devices Description No Information Available Encounters Type Date Location Provider Dx Diagnosis Office Visit 02/21/2019 [facility] L03.115 Cellulitis of 10:32a Assoc,pc Shortle, PONY ROUGHER right lower limb Hospitalists E72.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, unspecified B37.0 Candidal stomatitis F99 Mental disorder, not otherwise specified I48.91 Unspecified atrial fibrillation F10.10 Alcohol abuse, uncomplicated 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 J44.9 Chronic obstructive pulmonary disease, unspecified I10 Essential (primary) hypertension I73.9 Peripheral vascular disease, unspecified G40.909 Epilepsy, unsp, not intractable, without status epilepticus Office Visit 02/20/2019 [facility] L03.115 Cellulitis of 10:31a Assoc,pc Liam, PON[employer] ROUGHER right lower limb Hospitalists E72.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, unspecified B37.0 Candidal stomatitis F99 Mental disorder, not otherwise specified I48.91 Unspecified atrial fibrillation F10.10 Alcohol abuse, uncomplicated 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 J44.9 Chronic obstructive pulmonary disease, unspecified I10 Essential (primary) hypertension G40.909 Epilepsy, unsp, not intractable, without status epilepticus Office Visit 02/19/2019 10:31a [facility] Patricia Latesha, L03.115 Cellulitis of Assoc,pc PONY ROUGHER right lower limb Hospitalists E72.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, unspecified F10.10 Alcohol abuse, uncomplicated B37.0 Candidal stomatitis I10 Essential (primary) hypertension I73.9 Peripheral vascular disease, unspecified I48.91 Unspecified atrial fibrillation 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 J44.9 Chronic obstructive pulmonary disease, unspecified Office Visit 02/18/2019 [facility] Estela L03.115 Cellulitis of 10:31a Assoc,pc William, [place] right lower Hospitalists limb R41.82 Altered mental status, unspecified B37.0 Candidal stomatitis F10.10 Alcohol abuse, uncomplicated E83.42 Hypomagnesemia F17.200 Nicotine dependence, unspecified, uncomplicated J44.9 Chronic obstructive pulmonary disease, unspecified I10 Essential (primary) hypertension I48.91 Unspecified atrial fibrillation 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 w/o [facility] pctrs F99 Mental disorder, not otherwise specified [facility] 8:58a Assoc,tal Farrell PONY ROUGHER of right lower Hospitalists leg, init for clos fx I48.91 Unspecified atrial fibrillation F10.10 Alcohol abuse, uncomplicated J44.9 Chronic obstructive pulmonary disease, unspecified G40.909 Epilepsy, unsp, not intractable, without status epilepticus I73.9 Peripheral vascular disease, unspecified Office Visit 01/23/2019 8:56a [facility] S82.891A Oth fracture Assoc,[facility] Doto, of right lower Hospitalists PONY ROUGHER leg, init for clos fx I48.91 Unspecified atrial fibrillation 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 I10 Essential (primary) hypertension J44.9 Chronic obstructive pulmonary disease, unspecified Office Visit 01/22/2019 10:14a [facility] S82.891A Oth fracture Assoc,[facility] Doto, of right lower Hospitalists PONY ROUGHER leg, init for clos fx I10 Essential (primary) hypertension R53.83 Other fatigue I48.91 Unspecified atrial fibrillation J44.9 Chronic obstructive pulmonary disease, unspecified Office Visit 01/21/2019 10:13a [facility] S82.891A Oth fracture Assoc,[facility] Doto, of right lower Hospitalists PONY ROUGHER leg, init for clos fx R53.83 Other fatigue J44.9 Chronic obstructive pulmonary disease, unspecified I48.91 Unspecified atrial fibrillation G40.909 Epilepsy, unsp, not intractable, without status epilepticus Office Visit 01/20/2019 [facility] William S82.841A Displaced 10:11a Services Of Tara Moe M.D. bimalleolar fracture of right lower leg, init Office Visit 01/20/2019 [facility] S82.891A Oth fracture of 10:12a tal Perdue Adrienneo, right lower leg, Hospitalists PONY ROUGHER init for clos fx R53.83 Other fatigue Office Visit 01/19/2019 [facility] Kusum S82.841A Displaced 10:11a Asstal garza MD bimalleolar Hospitalists fracture of right lower leg, init E87.1 Hypo-osmolality and hyponatremia W19.xxxA Unspecified fall, initial encounter Y92.[address] of occurrence of the external cause Office Visit 12/26/2018 [place] [facility] F10.20 Alcohol 1:45p Neurologic Radames Phillip dependence, Services Of [facility] uncomplicated G40.909 Epilepsy, unsp, not intractable, without status epilepticus Office Visit 12/25/2018 11:00a [facility] Celestina SBriseida I35.0 Nonrheumatic Grady N.P. 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 Z72.0 Tobacco use Office Visit 12/21/2018 [facility] F10.239 Alcohol 9:40a tal Perdue MD dependence with Hospitalists withdrawal, unspecified J44.9 Chronic obstructive pulmonary disease, unspecified I48.91 Unspecified atrial fibrillation 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 Z72.0 Tobacco use I10 Essential (primary) hypertension E87.1 Hypo-osmolality and hyponatremia Office Visit 12/20/2018 [facility] Karen I48.91 Unspecified atrial 9:40a Assoctal PA-C fibrillation Hospitalists I47.2 Ventricular tachycardia J44.1 Chronic obstructive pulmonary disease w (acute) exacerbation I95.9 Hypotension, unspecified F10.239 Alcohol dependence with withdrawal, unspecified R45.851 Suicidal ideations 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 E87.1 Hypo-osmolality and hyponatremia Z72.0 Tobacco use I10 Essential (primary) hypertension Office Visit 12/20/2018 11:51a [facility] Shashi Garcia I48.2 Chronic atrial Of [facility] Radames Medina, fibrillation FACC, FASNC Z95.2 Presence of prosthetic heart valve F10.120 Alcohol abuse with intoxication, uncomplicated F31.9 Bipolar disorder, unspecified R45.851 Suicidal ideations E86.0 Dehydration Z72.0 Tobacco use I95.9 Hypotension, unspecified Office Visit 12/18/2018 9:39a [facility] Airam R45.851 Suicidal Assoc,tal Finley, ideations Hospitalists PONY ROUGHER I95.9 Hypotension, unspecified F10.20 Alcohol dependence, uncomplicated Z86.79 Personal history of other diseases of the circulatory system Z87.09 Personal history of other diseases of the respiratory system Z86.69 Personal history of dis of the nervous sys and sense organs Z95.0 Presence of cardiac pacemaker Z95.2 Presence of prosthetic heart valve F17.200 Nicotine dependence, unspecified, uncomplicated J44.9 Chronic obstructive pulmonary disease, unspecified Office Visit 12/16/2018 1:45p Pulmonology And Nasreen J44.9 Chronic Sleep Services Of MD Malathi obstructive Broom Stitcher pulmonary disease, unspecified J98.4 Other disorders of lung F17.210 Nicotine dependence, cigarettes, uncomplicated Office Visit 11/27/2018 8:46a [facility] William J96.01 Acute respiratory Assoc,tal Bangura M.D. failure with Hospitalists hypoxia J44.1 Chronic obstructive pulmonary disease w (acute) exacerbation I35.0 Nonrheumatic aortic (valve) stenosis Office Visit 11/26/2018 8:46a [facility] William J96.01 Acute respiratory Assoc,tal Bangura M.D. failure with Hospitalists hypoxia G40.909 Epilepsy, unsp, not intractable, without status epilepticus J44.9 Chronic obstructive pulmonary disease, unspecified F10.20 Alcohol dependence, uncomplicated Office Visit 11/25/2018 8:45a [facility] Sid Barboza, I50.9 Heart failure, Assoc,pc Radames unspecified Hospitalists I48.91 Unspecified atrial fibrillation Office Visit 11/24/2018 8:44a Intens[facility] Samuel Hamm, J96.01 Acute respiratory MD failure with hypoxia I50.9 Heart failure, unspecified I48.91 Unspecified atrial fibrillation E87.1 Hypo-osmolality and hyponatremia J44.9 Chronic obstructive pulmonary disease, unspecified F31.9 Bipolar disorder, unspecified F17.210 Nicotine dependence, cigarettes, uncomplicated F10.10 Alcohol abuse, uncomplicated Office Visit 11/24/2018 8:44a [facility] Arpita Avalos, R06.02 Shortness of Assoc,pc N.P. breath Hospitalists F10.10 Alcohol abuse, uncomplicated I48.91 Unspecified atrial fibrillation Office Visit 11/11/2018 2:00p [facility] Rosales Anderson I48.2 Chronic atrial Radames Reich fibrillation F10.10 Alcohol abuse, uncomplicated I73.9 Peripheral vascular disease, unspecified I34.0 Nonrheumatic mitral (valve) insufficiency Office Visit 10/14/2018 3:30p [facility] Celestina SBriseida Z95.0 Presence of Misty Rasmussen.Gil cardiac pacemaker I44.30 Unspecified atrioventricular block I48.2 Chronic atrial fibrillation R94.31 Abnormal electrocardiogram [ECG] [EKG] Office Visit 09/25/2018 [facility] Patricia Latesha, I48.91 Unspecified atrial 9:17a Assoc,pc PONY ROUGHER fibrillation Hospitalists I73.9 Peripheral vascular disease, unspecified F10.10 Alcohol abuse, uncomplicated Z95.0 Presence of cardiac pacemaker Office Visit 09/24/2018 9:17a [facility] Imani I49.9 Cardiac Assoc,tal Wheeler NP arrhythmia, Hospitalists unspecified I73.9 Peripheral vascular disease, unspecified F10.10 Alcohol abuse, uncomplicated F12.90 Cannabis use, unspecified, uncomplicated F31.9 Bipolar disorder, unspecified Z72.0 Tobacco use J44.9 Chronic obstructive pulmonary disease, unspecified Z91.19 Patient's noncompliance w oth medical treatment and regimen Assessments Date Code Description Provider 03/20/2019 L03.115 Cellulitis of right lower limb William Moe M.D. 03/20/2019 S82.841D Displaced bimalleolar fracture of William Moe M.D. right lower leg, subsequent encounter for closed fracture with routine healing 02/21/2019 L03.115 Cellulitis of right lower limb Imani Liam, PONY ROUGHER 02/21/2019 E72.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, Imani Shortle, PONY ROUGHER unspecified 02/21/2019 B37.0 Candidal stomatitis Imani Shortle, PONY ROUGHER 02/21/2019 F99 Mental disorder, not otherwise Imani Shortle, PONY ROUGHER specified 02/21/2019 I48.91 Unspecified atrial fibrillation Imani Shortle, PONY ROUGHER 02/21/2019 F10.10 Alcohol abuse, uncomplicated Imani Shortle, PONY ROUGHER 02/21/2019 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Imani Short, PONY ROUGHER unga coronary artery without angina pectoris 02/21/2019 J44.9 Chronic obstructive pulmonary Imani Shortle, PONY ROUGHER disease, unspecified 02/21/2019 I10 Essential (primary) hypertension [facility] Shortle, PONY ROUGHER 02/21/2019 I73.9 Peripheral vascular disease, Imani Shortle, PONY ROUGHER unspecified 02/21/2019 G40.909 Epilepsy, unspecified, not Imani Shortle, PONY ROUGHER intractable, without status epilepticus 02/20/2019 L03.115 Cellulitis of right lower limb Imani Shortyojana, PONY ROUGHER 02/20/2019 E72.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, Imani Shortle, PONY ROUGHER unspecified 02/20/2019 B37.0 Candidal stomatitis Imani Shortle, PONY ROUGHER 02/20/2019 F99 Mental disorder, not otherwise [facility] Shortle, PONY ROUGHER specified 02/20/2019 I48.91 Unspecified atrial fibrillation Imani Shortle, PONY ROUGHER 02/20/2019 F10.10 Alcohol abuse, uncomplicated Imani Shortle, PONY ROUGHER 02/20/2019 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 unga coronary artery without angina pectoris 02/20/2019 J44.9 Chronic obstructive pulmonary Imani Shortle, PONY ROUGHER disease, unspecified 02/20/2019 I10 Essential (primary) hypertension [facility] Shortle, PONY ROUGHER 02/20/2019 G40.909 Epilepsy, unspecified, not Imani Shortle, PONY ROUGHER intractable, without status epilepticus 02/19/2019 L03.115 Cellulitis of right lower limb Lulu Elliott, PA 02/19/2019 L03.115 Cellulitis of right lower limb Patricia Charlton, PONY ROUGHER 02/19/2019 L97.519 Non-pressure chronic ulcer of other LuluISAC Tobar part of right foot with unspecified severity 02/19/2019 E72.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, Patricia Latesha, PONY ROUGHER unspecified 02/19/2019 S82.841D Displaced bimalleolar fracture of ISAC Salgado right lower leg, subsequent encounter for closed fracture with routine healing 02/19/2019 F10.10 Alcohol abuse, uncomplicated Patricia Latesha, PONY ROUGHER 02/19/2019 B37.0 Candidal stomatitis Patricia Latesha, PONY ROUGHER 02/19/2019 I10 Essential (primary) hypertension Patricia Latesha, PONY ROUGHER 02/19/2019 I73.9 Peripheral vascular disease, Patricia Latesha, PONY ROUGHER unspecified 02/19/2019 I48.91 Unspecified atrial fibrillation Patricia Latesha, PONY ROUGHER 02/19/2019 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Patricia Latesha, PONY ROUGHER unga coronary artery without angina pectoris 02/19/2019 J44.9 Chronic obstructive pulmonary Patricia Latesha, PONY ROUGHER disease, unspecified 02/18/2019 L03.115 Cellulitis of right lower limb ISAC Mccoy 02/18/2019 R41.82 Altered mental status, unspecified ISAC Mccoy 02/18/2019 B37.0 Candidal stomatitis ISAC Mccoy 02/18/2019 F10.10 Alcohol abuse, uncomplicated Estela Thomas PA 02/18/2019 E83.42 Hypomagnesemia Estela Thomas PA 02/18/2019 F17.200 Nicotine dependence, unspecified, ISAC Mccoy uncomplicated 02/18/2019 J44.9 Chronic obstructive pulmonary ISAC Mccoy disease, unspecified 02/18/2019 I10 Essential (primary) hypertension Estela Thomas PA 02/18/2019 I48.91 Unspecified atrial fibrillation ISAC Mccoy 02/18/2019 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ISAC Mccoy unga coronary artery without angina pectoris 02/18/2019 F99 Mental disorder, not otherwise ISAC Mccoy specified 02/04/2019 S82.891A Other fracture of right lower leg, William Moe M.D. initial encounter for isaiah 01/26/2019 S82.891A Other fracture of right lower leg, Kimberly JEFFREY Farrell initial encounter for isaiah 01/26/2019 I48.91 Unspecified atrial fibrillation Kimberly Farrell, JEFFREY 01/26/2019 F10.10 Alcohol abuse, uncomplicated Kimberly Lemusney, PONY ROUGHER 01/26/2019 J44.9 Chronic obstructive pulmonary Kimberly Farrell NP disease, unspecified 01/26/2019 G40.909 Epilepsy, unspecified, not Kimberly JEFFREY Farrell intractable, without status epilepticus 01/26/2019 I73.9 Peripheral vascular disease, Kimberlyaspen Farrell, JEFFREY unspecified 01/23/2019 S82.891A Other fracture of right lower leg, Airam Finley NP initial encounter for isaiah 01/23/2019 I48.91 Unspecified atrial fibrillation Airam Finley, JEFFREY 01/23/2019 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Airam Finley NP unga coronary artery without angina pectoris 01/23/2019 I10 Essential (primary) hypertension Airam Finley, PONY ROUGHER 01/23/2019 J44.9 Chronic obstructive pulmonary Airam Finley NP disease, unspecified 01/22/2019 S82.891A Other fracture of right lower leg, Airam Finley NP initial encounter for isaiah 01/22/2019 I10 Essential (primary) hypertension Airam Finley, PONY ROUGHER 01/22/2019 R53.83 Other fatigue Airam Finley, JEFFREY 01/22/2019 I48.91 Unspecified atrial fibrillation Airam Finley NP 01/22/2019 J44.9 Chronic obstructive pulmonary Airam Finley NP disease, unspecified 01/21/2019 Z47.89 Encounter for other orthopedic ISAC Salgado aftercare 01/21/2019 S82.891A Other fracture of right lower leg, Airam Finley NP initial encounter for isaiah 01/21/2019 R53.83 Other fatigue Airam Finley, PONY ROUGHER 01/21/2019 J44.9 Chronic obstructive pulmonary Airam Finley, PONY ROUGHER disease, unspecified 01/21/2019 I48.91 Unspecified atrial fibrillation Airam Finley, PONY ROUGHER 01/21/2019 G40.909 Epilepsy, unspecified, not Airam Finley, PONY ROUGHER intractable, without status epile 01/20/2019 S82.841A Displaced bimalleolar fracture of Faiza William, RPA-C right lower leg, initial encounter for closed fracture 01/20/2019 S82.891A Other fracture of right lower leg, Airam Finley , PONY ROUGHER initial encounter for isaiah 01/20/2019 R53.83 Other fatigue Airam Finley, PONY ROUGHER 01/20/2019 S82.841A Displaced bimalleolar fracture of William Moe M.D. right lower leg, initial encounter for closed fracture 01/20/2019 S82.841A Displaced bimalleolar fracture of William Moe M.D. right lower leg, initial encounter for closed fracture 01/19/2019 S82.841A Displaced bimalleolar fracture of Kusum Gamboa MD right lower leg, init 01/19/2019 E87.1 Hypo-osmolality and hyponatremia Kusum Gamboa MD 01/19/2019 W19.xxxA Unspecified fall, initial encounter Kusum Gamboa MD 01/19/[address] of occurrence Kusum Gamboa MD of the external cause 01/10/2019 I10 Essential (primary) hypertension Nurse Visit cc 01/10/2019 I48.2 Chronic atrial fibrillation Rosales Reich M.D. 01/10/2019 I48.2 Chronic atrial fibrillation Nurse Visit cc 12/26/2018 F10.20 Alcohol dependence, uncomplicated Luis Antonio Phillip M.D. 12/26/2018 G40.909 Epilepsy, unspecified, not Luis Antonio Phillip M.D. intractable, without status epile 12/25/2018 I48.91 Unspecified atrial fibrillation Rosales Reich M.D. 12/25/2018 I35.0 Nonrheumatic aortic (valve) stenosis Celestina Rasmussen N.P. 12/25/2018 I45.10 Unspecified right bundle-branch Rosales Reich M.D. block 12/25/2018 I48.91 Unspecified atrial fibrillation Celestina Rasmussen, N.P. 12/25/2018 R94.31 Abnormal electrocardiogram [ECG] Rosales Reich M.D. [EKG] 12/25/2018 F17.210 Nicotine dependence, cigarettes, Celestina Rasmussen, N.P. uncomplicated 12/25/2018 I50.9 Heart failure, unspecified Celestina Rasmussen, N.P. 12/25/2018 F10.20 Alcohol dependence, uncomplicated Celestina Rasmussen, N.P. 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 12/22/2018 Z72.0 Tobacco use Lucy Moore MD 12/21/2018 F10.239 Alcohol dependence with withdrawal, Lucy Moore MD unspecified 12/21/2018 J44.9 Chronic obstructive pulmonary Lucy Moore MD disease, unspecified 12/21/2018 I48.91 Unspecified atrial fibrillation Lucy Moore MD 12/21/2018 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 12/21/2018 Z72.0 Tobacco use Lucy Moore MD 12/21/2018 I10 Essential (primary) hypertension Lucy Moore MD 12/21/2018 E87.1 Hypo-osmolality and hyponatremia Lucy Moore MD 12/20/2018 I48.91 Unspecified atrial fibrillation ISAC Bustos-C 12/20/2018 I47.2 Ventricular tachycardia Karen O'SANDIP mendozaC 12/20/2018 J44.1 Chronic obstructive pulmonary Karen AshScarWILLY mendoza disease with (acute) exacerbat 12/20/2018 I95.9 Hypotension, unspecified Karenluisa JoshuaISAC helm-C 12/20/2018 F10.239 Alcohol dependence with withdrawal, Karen OScarSANDIP mendozaC unspecified 12/20/2018 R45.851 Suicidal ideations Karenluisa JoshuaISAC helm-C 12/20/2018 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Karen WilsonWILLY unga coronary artery with 12/20/2018 E87.1 Hypo-osmolality and hyponatremia Karen O'SANDIP mendozaC 12/20/2018 Z72.0 Tobacco use Karen AshScarSANDIP mendozaC 12/20/2018 I10 Essential (primary) hypertension Karen NilsaSANDIP bermeoC 12/20/2018 I48.2 Chronic atrial fibrillation Shashi Medina M.D., [facility], [facility] 12/20/2018 Z95.2 Presence of prosthetic heart valve Shashi Medina M.D., [facility], [facility] 12/20/2018 F10.120 Alcohol abuse with intoxication, Shashi Medina M.D., [facility], uncomplicated [facility] 12/20/2018 F31.9 Bipolar disorder, unspecified Shashi Medina M.D., [facility], [facility] 12/20/2018 R45.851 Suicidal ideations Shashi Medina M.D., [facility], [facility] 12/20/2018 E86.0 Dehydration Shashi Medina M.D., [facility], [facility] 12/20/2018 Z72.0 Tobacco use Shashi Medina M.D., [facility], [facility] 12/20/2018 I95.9 Hypotension, unspecified Shashi Medina M.D., [facility], [facility] 12/19/2018 I95.9 Hypotension, unspecified Karen AshScarISAC mendoza-C 12/19/2018 I48.91 Unspecified atrial fibrillation Karen WilsonWILLY 12/19/2018 F10.239 Alcohol dependence with withdrawal, Karen Wilson WILLY unspecified 12/19/2018 J44.9 Chronic obstructive pulmonary Karen Wilson WILLY disease, unspecified 12/19/2018 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Karen Wilson ISACAbrahamRosa unga coronary artery with 12/19/2018 E87.1 Hypo-osmolality and hyponatremia Karen WilsonWILLY 12/19/2018 I10 Essential (primary) hypertension Karen WilsonWILLY 12/18/2018 R94.31 Abnormal electrocardiogram [ECG] Pablo Mora MD, FACC, [EKG] [facility] 12/18/2018 R45.851 Suicidal ideations Airam Jtfield Tushar NP 12/18/2018 I95.9 Hypotension, unspecified [facility] JEFFREY Finley 12/18/2018 F10.20 Alcohol dependence, uncomplicated Airam Jt Finley NP 12/18/2018 Z86.79 Personal history of other diseases 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 hypoxia 11/27/2018 J44.1 Chronic obstructive pulmonary William Bangura M.D. disease with (acute) exacerbat 11/27/2018 I35.0 Nonrheumatic aortic (valve) stenosis William Bangura M.D. 11/26/2018 J96.01 Acute respiratory failure with William Bangura M.D. hypoxia 11/26/2018 G40.909 Epilepsy, unspecified, not William Bangura M.D. intractable, without status epile 11/26/2018 J44.9 Chronic obstructive pulmonary William Bangura M.D. disease, unspecified 11/26/2018 F10.20 Alcohol dependence, uncomplicated William Bangura M.D. 11/25/2018 I50.9 Heart failure, unspecified Sid Barboza M.D. 11/25/2018 I50.9 Heart failure, unspecified Abbe Armstrong M.D. 11/25/2018 I48.91 Unspecified atrial fibrillation Sid Barboza M.D. 11/24/2018 R06.02 Shortness of breath Arpita Avalos, N.P. 11/24/2018 F10.10 Alcohol abuse, uncomplicated Arpita Avalos, N.P. 11/24/2018 J96.01 Acute respiratory failure with Samuel Hamm MD hypoxia 11/24/2018 I48.91 Unspecified atrial fibrillation Arpita Avalos, N.P. 11/24/2018 I50.9 Heart failure, unspecified Samuel Hamm MD 11/24/2018 I48.91 Unspecified atrial fibrillation Samuel Hamm MD 11/24/2018 E87.1 Hypo-osmolality and hyponatremia Samuel Hamm MD 11/24/2018 J44.9 Chronic obstructive pulmonary Samuel Hamm MD disease, unspecified 11/24/2018 F31.9 Bipolar disorder, unspecified Samuel Hamm MD 11/24/2018 F17.210 Nicotine dependence, cigarettes, Samuel Hamm MD uncomplicated 11/24/2018 F10.10 Alcohol abuse, uncomplicated Samuel Hamm MD 11/11/2018 I48.2 Chronic atrial fibrillation Rosales Reich M.D. 11/11/2018 F10.10 Alcohol abuse, uncomplicated Rosales Reich M.D. 11/11/2018 I73.9 Peripheral vascular disease, Rosales Reich M.D. unspecified 11/11/2018 I34.0 Nonrheumatic mitral (valve) Rosales Reich M.D. insufficiency 10/14/2018 I48.91 Unspecified atrial fibrillation Rosales Reich M.D. 10/14/2018 I45.10 Unspecified right bundle-branch Rosales Reich M.D. block 10/14/2018 Z95.0 Presence of cardiac pacemaker Celestina S. Foster, N.P. 10/14/2018 I44.30 Unspecified atrioventricular block Celestina S. Foster, N.P. 10/14/2018 I48.2 Chronic atrial fibrillation Celestina S. Foster, N.P. 10/14/2018 R94.31 Abnormal electrocardiogram [ECG] Celestina S. Foster, N.P. [EKG] 10/04/2018 Z95.0 Presence of cardiac pacemaker Rosales Reich M.D. 10/04/2018 Z95.0 Presence of cardiac pacemaker Ica Pacer Schedule 10/04/2018 I44.30 Unspecified atrioventricular block Ica Pacer Schedule 10/04/2018 I48.2 Chronic atrial fibrillation Ica Pacer Schedule 09/25/2018 I48.91 Unspecified atrial fibrillation Patricia Latesha, PONY ROUGHER 09/25/2018 I73.9 Peripheral vascular disease, Patricia Latesha, PONY ROUGHER unspecified 09/25/2018 R94.31 Abnormal electrocardiogram [ECG] Rosales Reich M.D. [EKG] 09/25/2018 F10.10 Alcohol abuse, uncomplicated Patricia Latesha, PONY ROUGHER 09/25/2018 Z95.0 Presence of cardiac pacemaker Patricia Latesha, PONY ROUGHER 09/24/2018 I49.9 Cardiac arrhythmia, unspecified Imani Shortle, PONY ROUGHER 09/24/2018 I73.9 Peripheral vascular disease, Imani Shortle, PONY ROUGHER unspecified 09/24/2018 F10.10 Alcohol abuse, uncomplicated Imani Shortle, PONY ROUGHER 09/24/2018 F12.90 Cannabis use, unspecified, Imani Shortle, PONY ROUGHER uncomplicated 09/24/2018 F31.9 Bipolar disorder, unspecified Imani Ratliffyojana, PON[employer] ROUGHER 09/24/2018 Z72.0 Tobacco use Imani Ratliffyojana, PON[employer] ROUGHER 09/24/2018 J44.9 Chronic obstructive pulmonary Imani Liam, PONY ROUGHER disease, unspecified 09/24/2018 Z91.19 Patient's noncompliance w oth Imani Wheeler, PONY ROUGHER medical treatment and regimen Plan of Treatment Future Appointment(s):04/10/2019 11:30 am - William Moe M.D. at [facility]A03/28/2019 10:00 am - Cel[facility]asmussen [facility] 11:30 am - Ica Pacer Schedule at [facility] 3:00 pm - [facility] 1: 30 pm - Nasreen Servin MD at [facility]03/20/2019 - William Moe M.D.L03.115 Cellulitis of right lower limbFollow up:Follow up: 3-4 [id number] Displaced bimalleolar fracture of right lower leg, subsequent encounter for closed fracturewith routine healing Functional Status Description No Information Available Mental Status Description No Information Available Referrals Description No Information Available
--- OUTSIDE RECORDS SUMMARY | 2019-04-07 12:17 | XMS REPORT | Continuity of Care Document ---
:1955 External Reference #:[id number] Author Name Jose D Hargrove N.P. (transmitted by agent of provider Teetee Frost) Address [address] [facility], [place] [address] Care Team Providers Name Role Phone Genaro Valenzuela MD - Care Team Information Site Safety Representative [phone] Ophthalmology Clifford Ventura DPM - Foot Surgery Care Team Information Site Safety Representative [phone] Vipul Grant MD - Neurology Care Team Information Site Safety Representative John Fountain MD - Internal Care Team Information Site Safety Representative [phone] Medicine Ne Mckeon MD - Psychiatry Care Team Information Site Safety Representative [phone] Louie Lewis MD - Family Care Team Information Site Safety Representative [phone] Medicine Jonathan An M.D. - Care Team Information Site Safety Representative [phone] Gastroenterology Problems Active Problems Provider Date Epilepsy Dereck Kirby M.D. Onset: 03/14/2011 Benign essential hypertension Dereck Kirby M.D. Onset: 03/14/2011 Idiopathic peripheral neuropathy Dereck Kirby M.D. Onset: 03/14/2011 Tobacco user Dereck Kirby M.D. Onset: 03/14/2011 Hypo-osmolality and or hyponatremia Dereck Kirby M.D. Onset: 03/14/2011 Hypoglycemia Dereck Kirby M.D. Onset: 03/14/2011 Visual disturbance Dereck Kirby M.D. Onset: 03/14/2011 Precordial pain Derekc Kirby M.D. Onset: 07/25/2011 Chronic obstructive lung [...] Smoker 1 Pack Daily Smoking Status Reviewed: 03/24/19 Current Cigarette 1 pack plus per day [...] Inj, Regadenoson, 0.1 MG Simone Barboza, DO FAC 04/14/2015 Injection Inj, Regadenoson, 0.1 MG Rosales Reich M.D. 04/14/2015 Injection Technetium TC 99M Simone Barboza, DO [facility] 04/14/2015 Tetrofosmin, Per Unit Dose Up To 40 Millicuries Injection Technetium TC 99M Rosales Reich M.D. 04/14/2015 Tetrofosmin, Per Unit Dose Up To 40 Millicuries Injection Influenza Virus Vaccine Unknown 04/15/2014 Injection Immunizations CPT Code Status Date Vaccine Lot # 53838 Given 05/05/2014 Pneumococcal Conjugate Vaccine 13 Valent For [id number] Intramuscular Use [id number] Given 03/25/2012 Fluzone Vaccine [id number] Vital Signs Date Vital Result Comment 03/24/2019 2:08pm Height 69.5 inches 5'9.50" Weight 158.00 lb Heart Rate 72 /min BP Systolic 124 mmHg BP Diastolic 78 mmHg BMI (Body Mass Index) 23.0 kg/m2 03/20/2019 10:47am Height 69.5 inches 5'9.50" Heart Rate 88 /min BP Systolic 122 mmHg BP Diastolic 82 mmHg Respiratory Rate 16 /min Body Temperature 97.9 F Pain Level 9 Results Description No Information Available Procedures Date Code Description Status 03/24/2019 60475 Pace Maker Eval W/Iterative Adjment Dual Lead Completed 01/20/2019 16164 ORIF Open TX Bimalleolar Ankle FX Includes Internal Completed Fixation 01/20/2019 95274 ORIF Open TX Bimalleolar Ankle FX Includes Internal Completed Fixation 01/10/2019 14257 EKG Tracing & Interpretation Completed 01/10/2019 22496 EKG Tracing & Interpretation Completed 12/25/2018 34394 EKG Tracing & Interpretation Completed 12/18/2018 15569 EKG, Interpretation Only Completed 11/25/2018 91617 ECHO Transthorasic Realtime 2D W Doppler & Color Flow Completed Hosp 11/11/2018 77644 EKG Tracing & Interpretation Completed 10/14/2018 97997 EKG Tracing & Interpretation Completed 10/04/2018 30702 Pace Maker Eval W/Iterative Adjment Dual Lead Completed 10/04/2018 52492 Pace Maker Eval W/Iterative Adjment Dual Lead Completed 09/25/2018 01459 ECHO Transthorasic Realtime 2D W Doppler & Color Flow Completed Hosp 07/09/2004 [id number] Colonoscopy Completed Medical Devices Description No Information Available Encounters Type Date Location Provider Dx Diagnosis Office Visit 02/21/2019 [facility] L03.115 Cellulitis of 10:32a Assoc,pc Shortle, [employer] right lower limb Hospitalists E72.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, unspecified B37.0 Candidal stomatitis F99 Mental disorder, not otherwise specified I48.91 Unspecified atrial fibrillation F10.10 Alcohol abuse, uncomplicated I25.10 Athscl heart disease of [place] coronary artery w/o ang pctrs J44.9 Chronic obstructive pulmonary disease, unspecified I10 Essential (primary) hypertension I73.9 Peripheral vascular disease, unspecified G40.909 Epilepsy, unsp, not intractable, without status epilepticus Office Visit 02/20/2019 [facility] L03.115 Cellulitis of 10:31a Assoc,pc Liam, [employer] right lower limb Hospitalists E72.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, unspecified B37.0 Candidal stomatitis F99 Mental disorder, not otherwise specified I48.91 Unspecified atrial fibrillation F10.10 Alcohol abuse, uncomplicated I25.10 Athscl heart disease of [place] coronary artery w/o ang pctrs J44.9 Chronic obstructive pulmonary disease, unspecified I10 Essential (primary) hypertension G40.909 Epilepsy, unsp, not intractable, without status epilepticus Office Visit 02/19/2019 10:31a [facility] Patricia Latesha, L03.115 Cellulitis of Assoc,pc [employer] right lower limb Hospitalists E72.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, unspecified F10.10 Alcohol abuse, uncomplicated B37.0 Candidal stomatitis I10 Essential (primary) hypertension I73.9 Peripheral vascular disease, unspecified I48.91 Unspecified atrial fibrillation I25.10 Athscl heart disease of [place] coronary artery w/o ang pctrs J44.9 Chronic obstructive pulmonary disease, unspecified Office Visit 02/18/2019 [facility] Estela L03.115 Cellulitis of 10:31a Assoc,pc [place], [place] right lower Hospitalists limb R41.82 Altered mental status, unspecified B37.0 Candidal stomatitis F10.10 Alcohol abuse, uncomplicated E83.42 Hypomagnesemia F17.200 Nicotine dependence, unspecified, uncomplicated J44.9 Chronic obstructive pulmonary disease, unspecified I10 Essential (primary) hypertension I48.91 Unspecified atrial fibrillation I25.10 Athscl heart disease of [place] coronary artery w/o ang pctrs F99 Mental disorder, not otherwise specified Office Visit 01/26/2019 [facility] S82.891A Oth fracture 8:58a Assoc,pc Bud, [employer] of right lower Hospitalists leg, init for clos fx I48.91 Unspecified atrial fibrillation F10.10 Alcohol abuse, uncomplicated J44.9 Chronic obstructive pulmonary disease, unspecified G40.909 Epilepsy, unsp, not intractable, without status epilepticus I73.9 Peripheral vascular disease, unspecified Office Visit 01/23/2019 8:56a [facility] S82.891A Oth fracture Assoc,[facility] Doto, of right lower Hospitalists [employer] leg, init for clos fx I48.91 Unspecified atrial fibrillation I25.10 Athscl heart disease of [place] coronary artery w/o ang pctrs I10 Essential (primary) hypertension J44.9 Chronic obstructive pulmonary disease, unspecified Office Visit 01/22/2019 10:14a [facility] S82.891A Oth fracture Assoc,[facility] Doto, of right lower Hospitalists [employer] leg, init for clos fx I10 Essential (primary) hypertension R53.83 Other fatigue I48.91 Unspecified atrial fibrillation J44.9 Chronic obstructive pulmonary disease, unspecified Office Visit 01/21/2019 10:13a [facility] S82.891A Oth fracture Assoc,[facility] Doto, of right lower Hospitalists [employer] leg, init for clos fx R53.83 Other fatigue J44.9 Chronic obstructive pulmonary disease, unspecified I48.91 Unspecified atrial fibrillation G40.909 Epilepsy, unsp, not intractable, without status epilepticus Office Visit 01/20/2019 [facility] S82.841A Displaced 10:11a Services Of Tara Moe M.D. bimalleolar fracture of right lower leg, init [facility] S[facility].891A Oth fracture of 10:12a Assoc,tal Waters Adrienneo, right lower leg, Hospitalists [employer] init for clos fx R53.83 Other fatigue Office Visit 01/19/2019 [facility] Kusum S82.841A Displaced 10:11a Asstal garza MD bimalleolar Hospitalists fracture of right lower leg, init E87.1 Hypo-osmolality and hyponatremia W19.xxxA Unspecified fall, initial encounter Y92.[address] of occurrence of the external cause Office Visit 12/26/2018 [facility] F10.20 Alcohol 1:45p Neurologic Radames Phillip dependence, Services Of [facility] uncomplicated G40.909 Epilepsy, unsp, not intractable, without status epilepticus Office Visit 12/25/2018 11:00a [facility] Celestina Echeverria I35.0 Nonrheumatic Foster, N.P. aortic (valve) stenosis I48.91 Unspecified atrial fibrillation F17.210 Nicotine dependence, cigarettes, uncomplicated I50.9 Heart failure, unspecified F10.20 Alcohol dependence, uncomplicated Office Visit 12/22/2018 [facility] F10.239 Alcohol 9:41a Asstal garza MD dependence with Hospitalists withdrawal, unspecified J44.9 Chronic obstructive pulmonary disease, unspecified I48.91 Unspecified atrial fibrillation I10 Essential (primary) hypertension E87.1 Hypo-osmolality and hyponatremia I25.10 Athscl heart disease of [place] coronary artery w/o ang pctrs Z72.0 Tobacco use Office Visit 12/21/2018 [facility] F10.239 Alcohol 9:40a Asstal garza MD dependence with Hospitalists withdrawal, unspecified J44.9 Chronic obstructive pulmonary disease, unspecified I48.91 Unspecified atrial fibrillation I25.10 Athscl heart disease of [place] coronary artery w/o ang pctrs Z72.0 Tobacco use I10 Essential (primary) hypertension E87.1 Hypo-osmolality and hyponatremia Office Visit 12/20/2018 [facility] Karen I48.91 Unspecified atrial 9:40a Asstal garza PA-C fibrillation Hospitalists I47.2 Ventricular tachycardia J44.1 Chronic obstructive pulmonary disease w (acute) exacerbation I95.9 Hypotension, unspecified F10.239 Alcohol dependence with withdrawal, unspecified R45.851 Suicidal ideations I25.10 Athscl heart disease of [place] coronary artery w/o ang pctrs E87.1 Hypo-osmolality and hyponatremia Z72.0 Tobacco use I10 Essential (primary) hypertension Office Visit 12/20/2018 11:51a [facility] Shashi Garcia I48.2 Chronic atrial Of [facility] Radames Medina, fibrillation FACC, FASNC Z95.2 Presence of prosthetic heart valve F10.120 Alcohol abuse with intoxication, uncomplicated F31.9 Bipolar disorder, unspecified R45.851 Suicidal ideations E86.0 Dehydration Z72.0 Tobacco use I95.9 Hypotension, unspecified Office Visit 12/18/2018 9:39a [facility] Airam R45.851 Suicidal Assoc, Jt Finley, ideations Hospitalists [employer] I95.9 Hypotension, unspecified F10.20 Alcohol dependence, uncomplicated [...] Chronic Sleep Services Of MD Malathi obstructive Applied Biology Professor pulmonary disease, unspecified J98.4 Other disorders of lung F17.210 Nicotine dependence, cigarettes, uncomplicated Office Visit 11/27/2018 8:46a [facility] William J96.01 Acute respiratory Assoc,tal Bangura M.D. failure with Hospitalists hypoxia J44.1 Chronic obstructive pulmonary disease w (acute) exacerbation I35.0 Nonrheumatic aortic (valve) stenosis Office Visit 11/26/2018 8:46a [facility] William J96.01 Acute respiratory Assoc,tal Bangura M.D. failure with Hospitalists hypoxia G40.909 Epilepsy, unsp, not intractable, without status epilepticus J44.9 Chronic obstructive pulmonary disease, unspecified F10.20 Alcohol dependence, uncomplicated Office Visit 11/25/2018 8:45a [facility] Sid Barboza, I50.9 Heart failure, Assoc,tal Manuel. unspecified Hospitalists I48.91 Unspecified atrial fibrillation Office Visit 11/24/2018 8:44a [facility] Samuel Hamm, J96.01 Acute respiratory MD failure with hypoxia I50.9 Heart failure, unspecified I48.91 Unspecified atrial fibrillation E87.1 Hypo-osmolality and hyponatremia J44.9 Chronic obstructive pulmonary disease, unspecified F31.9 Bipolar disorder, unspecified F17.210 Nicotine dependence, cigarettes, uncomplicated F10.10 Alcohol abuse, uncomplicated Office Visit 11/24/2018 8:44a [facility] Arpita Avalos, R06.02 Shortness of Assoc,pc N.P. breath Hospitalists F10.10 Alcohol abuse, uncomplicated I48.91 Unspecified atrial fibrillation Office Visit 11/11/2018 2:00p [facility] Rosales Anderson I48.2 Chronic atrial Radames Reich fibrillation F10.10 Alcohol abuse, uncomplicated I73.9 Peripheral vascular disease, unspecified I34.0 Nonrheumatic mitral (valve) insufficiency Office Visit 10/14/2018 3:30p [facility] Celestina Echeverria Z95.0 Presence of Grady N.P. cardiac pacemaker I44.30 Unspecified atrioventricular block I48.2 Chronic atrial fibrillation R94.31 Abnormal electrocardiogram [ECG] [EKG] Office Visit 09/25/2018 [facility] Patricia Latesha, I48.91 Unspecified atrial 9:17a Assoc,tal [employer] fibrillation Hospitalists I73.9 Peripheral vascular disease, unspecified F10.10 Alcohol abuse, uncomplicated Z95.0 Presence of cardiac pacemaker Office Visit 09/24/2018 9:17a [facility] Imani I49.9 Cardiac Assoc,tal Wheeler NP arrhythmia, Hospitalists unspecified I73.9 Peripheral vascular disease, unspecified F10.10 Alcohol abuse, uncomplicated F12.90 Cannabis use, unspecified, uncomplicated F31.9 Bipolar disorder, unspecified Z72.0 Tobacco use J44.9 Chronic obstructive pulmonary disease, unspecified Z91.19 Patient's noncompliance w oth medical treatment and regimen Assessments Date Code Description Provider 03/24/2019 F10.10 Alcohol abuse, uncomplicated Marta RudolphP. 03/24/2019 Z95.0 Presence of cardiac pacemaker Ica Pacer Schedule 03/24/2019 I48.91 Unspecified atrial fibrillation Jose D Hargrove, N.P. 03/24/2019 I50.9 Heart failure, unspecified Ica Pacer Schedule 03/24/2019 G40.909 Epilepsy, unspecified, not Jose Dskip Hargrove, N.P. intractable, without status epilepticus 03/24/2019 I73.9 Peripheral vascular disease, Jose D Hargrove, N.P. unspecified 03/24/2019 J44.9 Chronic obstructive pulmonary Jose D Hargrove, N.P. disease, unspecified 03/20/2019 L03.115 Cellulitis of right lower limb William Moe M.D. 03/20/2019 S82.841D Displaced bimalleolar fracture of William Moe M.D. right lower leg, subsequent encounter for closed fracture with routine healing 02/21/2019 L03.115 Cellulitis of right lower limb [facility] Gaudencio, [employer] 02/21/2019 E72.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, [facility], [employer] unspecified 02/21/[address] [facility], [employer] 02/21/2019 F99 Mental disorder, not otherwise [facility], [employer] specified 02/21/2019 I48.91 Unspecified atrial fibrillation [facility] Gaudencio, [employer] 02/21/2019 F10.10 Alcohol abuse, uncomplicated [facility] Gaudencio, [employer] 02/21/2019 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[facility], [employer]IC [place] coronary artery without angina pectoris 02/21/2019 J44.9 Chronic obstructive pulmonary [facility] Short, [employer] disease, unspecified 02/21/2019 I10 Essential (primary) hypertension [facility], [employer] 02/21/2019 I73.9 Peripheral vascular disease, [facility], [employer] unspecified 02/21/2019 G40.909 Epilepsy, unspecified, not [facility] Shortle, [employer] intractable, without status epilepticus 02/20/2019 L03.115 Cellulitis of right lower limb [facility] Shortle, [employer] 02/20/2019 E72.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, [facility] Short, [employer] unspecified 02/20/2019 B37.0 Candidal stomatitis Imani Shortle, [employer] 02/20/2019 F99 Mental disorder, not otherwise Imani Shortle, [employer] specified 02/20/2019 I48.91 Unspecified atrial fibrillation Imani Shortle, [employer] 02/20/2019 F10.10 Alcohol abuse, uncomplicated Imani Shortle, [employer] 02/20/2019 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Imani Wheeler, [employer] [place] coronary artery without angina pectoris 02/20/2019 J44.9 Chronic obstructive pulmonary Imani Shortle, [employer] disease, unspecified 02/20/2019 I10 Essential (primary) hypertension Imani Shortle, [employer] 02/20/2019 G40.909 Epilepsy, unspecified, not Imani Shortle, [employer] intractable, without status epilepticus 02/19/2019 L03.115 Cellulitis of right lower limb ISAC Salgado 02/19/2019 L03.115 Cellulitis of right lower limb Patricia Latesha, [employer] 02/19/2019 L97.519 Non-pressure chronic ulcer of other ISAC Salgado part of right foot with unspecified severity 02/19/2019 E72.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, Patricia Latesha, [employer] unspecified 02/19/2019 S82.841D Displaced bimalleolar fracture of ISAC Salgado right lower leg, subsequent encounter for closed fracture with routine healing 02/19/2019 F10.10 Alcohol abuse, uncomplicated Patricia Latesha, [employer] 02/19/2019 B37.0 Candidal stomatitis Patricia Latesha, [employer] 02/19/2019 I10 Essential (primary) hypertension Patricia Latesha, [employer] 02/19/2019 I73.9 Peripheral vascular disease, Patricia Latesha, [employer] unspecified 02/19/2019 I48.91 Unspecified atrial fibrillation Patricia Latesha, [employer] 02/19/2019 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Patricia Latesha, [employer] [place] coronary artery without angina pectoris 02/19/2019 J44.9 Chronic obstructive pulmonary Patricia Latesha, [employer] disease, unspecified 02/18/2019 L03.115 Cellulitis of right lower limb ISAC Mccoy 02/18/2019 R41.82 Altered mental status, unspecified ISAC Mccoy 02/18/2019 B37.0 Candidal stomatitis ISAC Mccoy 02/18/2019 F10.10 Alcohol abuse, uncomplicated IASC Mccoy 02/18/2019 E83.42 Hypomagnesemia ISAC Mccoy 02/18/2019 F17.200 Nicotine dependence, unspecified, ISAC Mccoy uncomplicated 02/18/2019 J44.9 Chronic obstructive pulmonary ISAC Mccoy disease, unspecified 02/18/2019 I10 Essential (primary) hypertension ISAC Mccoy 02/18/2019 I48.91 Unspecified atrial fibrillation ISAC Mccoy 02/18/2019 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ISAC Mccoy [place] coronary artery without angina pectoris 02/18/2019 F99 Mental disorder, not otherwise ISAC Mccoy specified 02/04/2019 S82.891A Other fracture of right lower leg, William Moe M.D. initial encounter for isaiah 01/26/2019 S82.891A Other fracture of right lower leg, Kimberly Farrell, JEFFREY initial encounter for isaiah 01/26/2019 I48.91 Unspecified atrial fibrillation Kimberly Farrell NP 01/26/2019 F10.10 Alcohol abuse, uncomplicated Kimberlyaspen Farrell, JEFFREY 01/26/2019 J44.9 Chronic obstructive pulmonary Kimberly Farrell NP disease, unspecified 01/26/2019 G40.909 Epilepsy, unspecified, not Kimberlyaspen Farrell, [employer] intractable, without status epilepticus 01/26/2019 I73.9 Peripheral vascular disease, Kimberly Farrell NP unspecified 01/23/2019 S82.891A Other fracture of right lower leg, Airam Finley NP initial encounter for isaiah 01/23/2019 I48.91 Unspecified atrial fibrillation Airam Finley NP 01/23/2019 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Airam Finley NP [place] coronary artery without angina pectoris 01/23/2019 I10 Essential (primary) hypertension Airam Finley NP 01/23/2019 J44.9 Chronic obstructive pulmonary Airam Finley NP disease, unspecified 01/22/2019 S82.891A Other fracture of right lower leg, Airam Jt Doto , [employer] initial encounter for isaiah 01/22/2019 I10 Essential (primary) hypertension Airamdelma Waters Doto, [employer] 01/22/2019 R53.83 Other fatigue Airam Jt Doto, [employer] 01/22/2019 I48.91 Unspecified atrial fibrillation Airamdelma Waters Doto, [employer] 01/22/2019 J44.9 Chronic obstructive pulmonary Airamdelma Waters Doto, [employer] disease, unspecified 01/21/2019 Z47.89 Encounter for other orthopedic ISAC Salgado aftercare 01/21/2019 S82.891A Other fracture of right lower leg, Airam Jt Dotnilsa , [employer] initial encounter for isaiah 01/21/2019 R53.83 Other fatigue Airam Jt Doto, [employer] 01/21/2019 J44.9 Chronic obstructive pulmonary Airamdelma Waters Doto, [employer] disease, unspecified 01/21/2019 I48.91 Unspecified atrial fibrillation Airam Jt Doto, [employer] 01/21/2019 G40.909 Epilepsy, unspecified, not Airam Jt Doto, [employer] intractable, without status epile 01/20/2019 S82.841A Displaced bimalleolar fracture of Faiza William RPA-C right lower leg, initial encounter for closed fracture 01/20/2019 S82.891A Other fracture of right lower leg, Airamdelma Finley , [employer] initial encounter for isaiah 01/20/2019 R53.83 Other fatigue Airam Jt Doto, [employer] 01/20/2019 S82.841A Displaced bimalleolar fracture of William [...] 12/25/2018 I35.0 Nonrheumatic aortic (valve) stenosis Celestina Rasmussen, N.P. 12/25/2018 I45.10 Unspecified right bundle-branch Rosales Reich M.D. block 12/25/2018 I48.91 Unspecified atrial fibrillation Celestina Rasmussen, N.P. 12/25/2018 R94.31 Abnormal electrocardiogram [ECG] Rosales Reich M.D. [EKG] 12/25/2018 F17.210 Nicotine dependence, cigarettes, Celestina Rasmussen, N.P. uncomplicated 12/25/2018 I50.9 Heart failure, unspecified Celestina SBriseida Rasmussen, N.P. 12/25/2018 F10.20 Alcohol dependence, uncomplicated Celestina Rasmussen, N.P. 12/22/2018 F10.239 Alcohol dependence with withdrawal, Lucy Moore MD unspecified 12/22/2018 J44.9 Chronic obstructive pulmonary Lucy Moore MD disease, unspecified 12/22/2018 I48.91 Unspecified atrial fibrillation Lucy Moore MD 12/22/2018 I10 Essential (primary) hypertension Lucy Moore MD 12/22/2018 E87.1 Hypo-osmolality and hyponatremia Lucy Moore MD 12/22/2018 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Lucy Moore MD [place] coronary artery with 12/22/2018 Z72.0 Tobacco use Lucy Moore MD 12/21/2018 F10.239 Alcohol dependence with withdrawal, Lucy Moore MD unspecified 12/21/2018 J44.9 Chronic obstructive pulmonary Lucy Moore MD disease, unspecified 12/21/2018 I48.91 Unspecified atrial fibrillation Lucy Moore MD 12/21/2018 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Lucy Moore MD [place] coronary artery with 12/21/2018 Z72.0 Tobacco use Lucy Moore MD 12/21/2018 I10 Essential (primary) hypertension Lucy Moore MD 12/21/2018 E87.1 Hypo-osmolality and hyponatremia Lucy Moore MD 12/20/2018 I48.91 Unspecified atrial fibrillation Karen Wilson PA-C 12/20/2018 I47.2 Ventricular tachycardia Karen Wilson PA-C 12/20/2018 J44.1 Chronic obstructive pulmonary Karen Nilsa'kelly PA-C disease with (acute) exacerbat 12/20/2018 I95.9 Hypotension, unspecified Karen O'kelly, PA-C 12/20/2018 F10.239 Alcohol dependence with withdrawal, Karen Nilsa'kelly, PA-C unspecified 12/20/2018 R45.851 Suicidal ideations Karen O'kelly, PA-C 12/20/2018 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Karen Wilson PA-C [place] coronary artery with 12/20/2018 E87.1 Hypo-osmolality and hyponatremia Karen O'kelly, PA-C 12/20/2018 Z72.0 Tobacco use Karen O'kelly, PA-C 12/20/2018 I10 Essential (primary) hypertension Karen O'kelly, PA-C 12/20/2018 I48.2 Chronic atrial fibrillation Shashi Medina M.D., [facility] 12/20/2018 Z95.2 Presence of prosthetic heart valve Shashi Medina M.D., [facility], FASMD 12/20/2018 F10.120 Alcohol abuse with intoxication, Shashi Medina M.D., FACC, uncomplicated [facility] 12/20/2018 F31.9 Bipolar disorder, unspecified Shashi Medina M.D., [facility], [facility] 12/20/2018 R45.851 Suicidal ideations Shashi Medina M.D., [facility], [facility] 12/20/2018 E86.0 Dehydration Shashi Medina M.D., [facility], [facility] 12/20/2018 Z72.0 Tobacco use Shashi Medina M.D., [facility], [facility] 12/20/2018 I95.9 Hypotension, unspecified Shashi Median M.D., [facility], [facility] 12/19/2018 I95.9 Hypotension, unspecified ISAC Bustos-[facility] 12/19/2018 I48.91 Unspecified atrial fibrillation ISAC Bustos-[facility] 12/19/2018 F10.239 Alcohol dependence with withdrawal, ISAC Bustos-C unspecified 12/19/2018 J44.9 Chronic obstructive pulmonary Karen Wilson PA-C disease, unspecified 12/19/2018 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[place]os[place] coronary artery with 12/19/2018 E87.1 Hypo-osmolality and hyponatremia Karen Wilson PA-C 12/19/2018 I10 Essential (primary) hypertension Karen Wilson PA-C 12/18/2018 R94.31 Abnormal electrocardiogram [ECG] Pablo Mora MD, [facility], [EKG] [facility] 12/18/2018 R45.851 Suicidal ideations Airam Jtfield Finley, [employer] 12/18/2018 I95.9 Hypotension, unspecified Airamdelma Finley, [employer] 12/18/2018 F10.20 Alcohol dependence, uncomplicated Airam Jtfield Finley, [employer] 12/18/2018 Z86.79 Personal history of other diseases Airam Finley NP of the circulatory system 12/18/2018 Z87.09 Personal history of other diseases Airam Finley NP of the respiratory system 12/18/2018 Z86.69 Personal history of dis of the Airam Jt Finley [employer] nervous sys and sense organs 12/18/2018 Z95.0 Presence of cardiac pacemaker Airam Deleonnilsa, JEFFREY 12/18/2018 Z95.2 Presence of prosthetic heart valve Airam Waters JEFFREY Finley 12/18/2018 F17.200 Nicotine dependence, unspecified, Airam Finley, [employer] uncomplicated 12/18/2018 J44.9 Chronic obstructive pulmonary Airamdelma Finley NP disease, unspecified 12/16/2018 J44.9 Chronic [...] hypoxia 11/24/2018 I48.91 Unspecified atrial fibrillation Arpita Avalos N.P. 11/24/2018 I50.9 Heart failure, unspecified Samuel [...] 10/14/2018 Z95.0 Presence of cardiac pacemaker Celestina Rasmussen, N.P. 10/14/2018 I44.30 Unspecified atrioventricular block Celestina Rasmussen, N.P. 10/14/2018 I48.2 Chronic atrial fibrillation Celestina Rasmussen, N.P. 10/14/2018 R94.31 Abnormal electrocardiogram [ECG] Celestina Rasmussen N.P. [EKG] 10/04/2018 Z95.0 Presence of cardiac pacemaker Rosales Reich M.D. 10/04/2018 Z95.0 Presence of cardiac pacemaker Ica Pacer Schedule 10/04/2018 I44.30 Unspecified atrioventricular block Ica Pacer Schedule 10/04/2018 I48.2 Chronic atrial fibrillation Ica Pacer Schedule 09/25/2018 I48.91 Unspecified atrial fibrillation Patricia Latesha, [employer] 09/25/2018 I73.9 Peripheral vascular disease, Patricia Latesha, [employer] unspecified 09/25/2018 R94.31 Abnormal electrocardiogram [ECG] Rosales Reich M.D. [EKG] 09/25/2018 F10.10 Alcohol abuse, uncomplicated Patricia Latesha, [employer] 09/25/2018 Z95.0 Presence of cardiac pacemaker Patricia Latesha, [employer] 09/24/2018 I49.9 Cardiac arrhythmia, unspecified Imani Shortle, [employer] 09/24/2018 I73.9 Peripheral vascular disease, Imani Shortle, [employer] unspecified 09/24/2018 F10.10 Alcohol abuse, uncomplicated Imani Shortle, [employer] 09/24/2018 F12.90 Cannabis use, unspecified, Imani Shortle, [employer] uncomplicated 09/24/2018 F31.9 Bipolar disorder, unspecified Imani Shortle, [employer] 09/24/2018 Z72.0 Tobacco use Imani Shortle, [employer] 09/24/2018 J44.9 Chronic obstructive pulmonary [facility] Shortle, [employer] disease, unspecified 09/24/2018 Z91.19 Patient's noncompliance w oth Imani Wheeler NP medical treatment and regimen Plan of Treatment Future Appointment(s):06/17/2019 10:45 am - Luis Antonio Phillip M.D. at [facility]04/10/2019 11:30 am - William Moe M.D. at [facility]03/28/2019 10:00 am - Celestina Rasmussen N.Gil at [facility]06/26/2019 3:00 pm - Rosales Reich M.D. at [facility]12/18/2019 1:30 pm - Nasreen Servin MD at [facility]03/24/2019 - Misty Rudolph.GilF10.10 Alcohol abuse, itdbsoybkdzvgY36.91 Unspecified atrial dounlohoanyoB45.909 Epilepsy, unspecified , not intractable, without status epilepticusFollow up:[address] Dobson73.9 Peripheral vascular disease, olbpyhftbjaS46.9 Chronic obstructive pulmonary disease, unspecified Functional Status Description No Information Available Mental Status Description No Information Available Referrals Description No Information Available
--- NOTE | 2019-04-07 12:18 | ED ---
Psychiatric Complaint - HPI Summary HPI Summary: Patient is a 64 y/o M w/ Hx of bipolar disorder who presents to [facility] for MHE. He states, "It's not a good day". Patient believes that he is rapid cycling. He denies SI and HI at present. He reports that he took all of medications as prescribed today. He reports that he had thoughts of self-harm earlier today. Per triage, "Pt stated that over the weekend he got lonely and went to his family doctor to talk and to tell them that he wanted to change his appointment from sunday to . Pt stated that he might have mentioned the word suicide and was sent here. Pt stated that he has had a plan forever and will probably will forever". Patient states that in 2002, he attempted suicide via medications overdose. Patient claims that he just had "a can of beer", 12 oz today. He states that he has a safe place to stay in his apartment but also notes that he wants to put in 30 days notice to [facility] and would like to go to [facility]. Patient does not report any fever, chills, erythema of eyes, sore throat, CP, SOB, cough, abdominal pain, N/V, dysuria, hematuria, myalgia, edema, rash, and dizziness. On triage, pain is rated 0/10, nothing is noted to aggravate Sx, nothing is noted to alleviate Sx. Home medications and allergies are reviewed. - History Of Current Complaint Time Seen by Provider: 04/07/19 12:03 Hx Obtained From: Patient Onset/Duration: Still Present - rapid cycling Timing: Constant Aggravating Factor(s): Nothing Alleviating Factor(s): Nothing Has Suicidal: Reports: Has Prior Attempt(s). Denies: Thoughts Has Homicidal: Denies: Thoughts - Allergies/Home Medications Allergies/Adverse Reactions: Allergies Allergy/AdvReac Type Severity Reaction Status Date / Time No Known Allergies Allergy Verified 03/01/19 19:19 Home Medications: Home Medications Suvorexant (NF) [Belsomra (NF)] 20 mg PO BEDTIME PRN 04/07/19 [History Confirmed 04/07/19] Umeclidinium 62.5 MDI(NF) [Incruse ELLIPTA MDI (NF)] 62.5 mcg INH DAILY [History Confirmed 04/07/19] PMH/Surg Hx/FS Hx/Imm Hx Endocrine/Hematology History: Reports: Hx Anticoagulant Therapy Denies: Hx Diabetes, Hx Thyroid Disease Cardiovascular History: Reports: Hx Auto Implanted Cardiovert Defib, Hx Hypertension, Hx Pacemaker/ICD - [employer] -GUIANDANT - NOT MR SAFE/ CONDITIONAL, Hx Peripheral Vascular Disease, Hx Valvular Heart Disease - Recent valve replacement surgery, Other Cardiovascular Problems/Disorders - Hx Atrial Fibrillation and was treatment with Warfarin which has been d/c'd Respiratory History: Reports: Hx Chronic Bronchitis, Hx Chronic Obstructive Pulmonary Disease (COPD), Other Respiratory Problems/Disorders - poss aspiration Denies: Hx Asthma History: Reports: Other Problems/Disorders - History of SIADH Denies: Hx Renal Disease Musculoskeletal History: Reports: Other Musculoskeletal History - peripheral neuropathy Denies: Hx Arthritis, Hx Osteoporosis Sensory History: Reports: Hx Cataracts Denies: Hx Contacts or Glasses, Hx Hearing Aid Opthamlomology History: Reports: Hx Cataracts Denies: Hx Contacts or Glasses Neurological History: Reports: Hx Seizures - seizure d/o, Other Neuro Impairments/Disorders - PERIPHERAL NEUROPATHY Denies: Hx Dementia Psychiatric History: Reports: Hx Anxiety, Hx Depression, Hx Panic Disorder, Hx Post Traumatic Stress Disorder, Hx Inpatient Treatment, Hx Community Mental Health Tx, Hx Bipolar Disorder, Hx Suicide Attempt, Hx of Violent Episodes Against Others, Hx Substance Abuse, Other Psychiatric Issues/Disorders - has had ECT treatment Denies: Hx Attention Deficit Hyperactivity Disorder, Hx Eating Disorder, Hx Schizophrenia - Surgical History Surgery Procedure, Year, and Place: CABG, PACEMAKER Hx Anesthesia Reactions: No - Immunization History Date of Tetanus Vaccine: PT STATES UNSURE Date of Influenza Vaccine: NONE Infectious Disease History: Reports: Hx Tuberculosis - hx of inactive TB Denies: Hx Clostridium Difficile, Hx Hepatitis, Hx Human Immunodeficiency Virus (HIV), Hx of Known/Suspected MRSA, Hx Shingles, Hx Known/Suspected VRE, Hx Known/Suspected VRSA, History Other Infectious Disease - Family History Known Family History: Positive: Other - Mother -- depression, Father -- EtOH abuse - Social History Alcohol Use: Daily Alcohol Amount: about 72 onces Hx Substance Use: Yes Substance Use Type: Reports: Marijuana Substance Use Comment - Amount & Last Used: Last used Sunday Hx Tobacco Use: Yes Smoking Status (MU): Heavy Every Day Tobacco Smoker Type: Cigarettes Amount Used/How Often: 1/2 PPD Length of Time of Smoking/Using Tobacco: 40 YRS Have You Smoked in the Last Year: Yes Review of Systems Negative: Fever, Chills Negative: Erythema Negative: Sore Throat Negative: Chest Pain Negative: Shortness Of Breath, Cough Negative: Abdominal Pain, Vomiting, Nausea Negative: dysuria, hematuria Negative: Myalgia, Edema Negative: Rash Neurological: Other - negative - dizziness Psychological: Other - positive - rapid cycling; negative - SI and HI All Other Systems Reviewed And Are Negative: Yes Physical Exam - Summary Physical Exam Summary: Constitutional: Well-developed, Well-nourished, Alert. (-) Distressed; he has slurred speech Skin: Warm, Dry HENT: Normocephalic; Atraumatic Eyes: Conjunctiva normal Neck: Musculoskeletal ROM normal neck. (-) JVD, (-) Stridor, (-) Tracheal deviation Cardio: Rhythm regular, rate normal, Heart sounds normal; Intact distal pulses; The pedal pulses are 2+ and symmetric. Radial pulses are 2+ and symmetric. (-) Murmur Pulmonary/Chest wall: Effort normal. (-) Respiratory distress, (-) Wheezes, (-) Rales Abd: Soft, (-) tenderness, (-) Distension, (-) Guarding, (-) Rebound Musculoskeletal: (-) Edema Lymph: (-) Cervical adenopathy Neuro: Alert, Oriented x3 Psych: Mood and affect Normal Triage Information Reviewed: Yes Vital Signs On Initial Exam: Initial Vitals Temp Pulse Resp BP Pulse Ox 97.5 F 82 20 114/79 100 04/07/19 12:11 04/07/19 12:11 04/07/19 12:11 04/07/19 12:11 04/07/19 12:11 Vital Signs Reviewed: Yes Diagnostics - Laboratory Result Diagrams: 04/07/19 12:31 04/07/19 12:31 Lab Statement: Any lab studies that have been ordered have been reviewed, and results considered in the medical decision making process. Course/Dx - Course Course Of Treatment: Patient is a 64 y/o M w/ Hx of bipolar disorder who presents to [facility] for MHE. He states, "It's not a good day". Patient believes that he is rapid cycling. He denies SI and HI at present. He reports that he took all of medications as prescribed today. He reports that he had thoughts of self-harm earlier today. Per triage, "Pt stated that over the weekend he got lonely and went to his family doctor to talk and to tell them that he wanted to change his appointment from sunday to . Pt stated that he might have mentioned the word suicide and was sent here. Pt stated that he has had a plan forever and will probably will forever". Patient states that in 2002, he attempted suicide via medications overdose. Patient claims that he just had "a can of beer", 12 oz today. He states that he has a safe place to stay in his apartment but also notes that he wants to put in 30 days notice to [facility] and would like to go to [facility]. Bloodwork was obtained. His sodium was 119. Other abnormal values include MCH 32, MPV 7.2, absolute monos 0.9, chloride 86, glucose 105, TSH 6.31. UA showed trace ketones, urine tox showed presumptive positive of benzodiazepines. Serum alcohol was negative. During ED course, patient received Atarax 50 mg PO. 1431 - Patients case was discussed with Dr. Barrios, who requested variety saw operator consult. 1439 - Dr. Oden was consulted on the patients case, who recommended admission to hospitalist. 1449 Director Treasurer consult was relayed to Dr. Barrios, Dr. Barrios accepts for admission. - Differential Dx/Clinical Impression Provider Diagnosis: Hyponatremia - Physician Notifications Discussed Care Of Patient With: Alivia Barrios Time Discussed With Above Provider: 14:31 Instructed by Provider To: Other - 1431 - Patients case was discussed with Dr. Barrios, who requested variety saw operator consult. 1439 - Dr. Oden was consulted on the patients case, who recommended admission to hospitalist. 1449 Director Treasurer consult was relayed to Dr. Barrios, Dr. Barrios accepts for admission. - Critical Care Time Critical Care Time: 30-74 min - 35 minutes of CCT Discharge ED - Sign-Out/Discharge Documenting (check all that apply): Patient Departure - admit Patient Received Moderate/Deep Sedation with Procedure: No - Discharge Plan Condition: Fair Disposition: ADMITTED TO [facility] Referrals: Louie Lewis MD [Primary Care Provider] - - Attestation Statements Document Initiated by Scribe: Yes Documenting Scribe: GUEVARA ROBLES Provider For Whom Scribe is Documenting (Include Credential): JACQUE HEIN MD Scribe Attestation: I, GUEVARA ROBLES, scribed for JACQUE HEIN MD on 04/07/19 at 1623. Status of Scribe Document: Ready
[2019-04-07 12:45] LABS: ABS Eosinophils 0.1 10^3/ul (0-0.6); ABS Lymphocytes 1.7 10^3/ul (1.0-4.8); ABS Monocytes 0.9 10^3/ul (0-0.8); ABS Neutrophils 6.6 10^3/ul (1.5-7.7); Eosinophil % 0.6 %; Hematocrit 43 % (42-52); Hemoglobin 14.8 g/dL (14.0-18.0); Lymphocyte % 18.2 %; Mean Corpuscular HGB Conc 35 g/dL (31-36); Mean Corpuscular Hemoglobin 32 pg (27-31); Mean Corpuscular Volume 91 fL (80-94); Mean Platelet Volume 7.2 fL (7.4-10.4); Platelet Count 281 10^3/uL (150-450); Red Blood Count 4.68 10^6 /uL (4.18-5.48); Red Cell Distribution Width 15 % (10-15); White Blood Count 9.3 10^3/uL (3.5-10.8)
[2019-04-07 13:05] LABS: ALT 12 U/L (7-52); AST 17 U/L (13-39); Albumin 4.1 g/dL (3.2-5.2); Albumin/Globulin Ratio 1.2 (1-3); Alkaline Phosphatase 74 U/L (34-104); BUN/Creatinine Ratio 17.3 (8-20); Blood Urea Nitrogen 14 mg/dL (6-24); CO2 Carbon Dioxide 24 mmol/L (22-32); Calcium 9.4 mg/dL (8.6-10.3); Chloride 86 mmol/L (101-111); EGFR African American 116.1 (>60); EGFR Non-African American 95.9 (>60); Globulin 3.4 g/dL (2-4); Glucose 105 mg/dL (70-100); Potassium 4.2 mmol/L (3.5-5.0); Total Protein 7.5 g/dL (6.4-8.9)
[2019-04-07 13:33] LABS: Acetaminophen < 15 mcg/mL; Alcohol < 10 mg/dL (<10); Salicylate < 2.50 mg/dL (<30)
[2019-04-07 13:49] LABS: TSH (Thyroid Stimulating Horm) 6.31 mcIU/mL (0.34-5.60)
[2019-04-07] MEDS ORDERED: hydrOXYzine HCL TAB* 50 MG PO ONE (14:00)
[2019-04-07 14:06] LABS: Anion Gap 9 mmol/L (2-11); Sodium 119 mmol/L (135-145)
[2019-04-07 15:08] LABS: Urine Appearance Clear; Urine Bilirubin Negative (Negative); Urine Blood Negative (Negative); Urine Color Yellow; Urine Glucose Negative (Negative); Urine Ketones Trace (Negative); Urine Nitrite Negative (Negative); Urine Protein Negative (Negative); Urine Specific Gravity 1.018 (1.010-1.030); Urine Urobilinogen Negative (Negative)
[2019-04-07 15:43] LABS: Urine Benzodiazepine Screen Presumptive Positive (None Detect); Urine Opiates Screen None Detected (None Detect)
[2019-04-07 16:10] LABS: Lithium < 0.10 mmol/L (0.6-1.2)
[2019-04-07] MEDS ORDERED: LORazepam INJ* 2 MG/ML 1 ML VIAL IV PUSH ONE (17:18)
[2019-04-07] MEDS ORDERED: Lorazepam PYXIS KEY PRN (17:18)
[2019-04-07] MEDS ORDERED: Lorazepam PYXIS KEY ONE (17:36)
[2019-04-07 17:58] LABS: Digoxin 1.2 ng/ml (0.8-2.0)
[2019-04-07] MEDS: NS 0.9% 1000 ML** 1,000 ML IV SCH (18:02)
[2019-04-07] MEDS: Acetaminophen TAB* 325 MG PO PRN (18:45)
[2019-04-07] MEDS: LORazepam TAB(*) 1 MG PO SCH (20:29)
[2019-04-07] MEDS: Enoxaparin(*) 40 MG/0.4 ML SYR SUBCUT SCH (20:29)
[2019-04-07] MEDS: HYDROcodone/ACETAMIN 5-325 MG* 1 TAB PO PRN (20:33)
[2019-04-07] MEDS: levETIRAcetam TAB* 500 MG PO SCH (20:34)
[2019-04-07] MEDS ORDERED: Thiamine INJ* 100 MG/ML 2 ML VIAL IM ONE (21:00)
--- NOTE | 2019-04-07 21:43 | HP ---
CC: Dr. Lewis, [facility] * HISTORY AND PHYSICAL: DATE OF ADMISSION: 04/07/19 PROVIDER: Kimberly Farrell NP. PRIMARY CARE PROVIDER: Dr. Lewis. ATTENDING PHYSICIAN WHILE IN THE HOSPITAL: Alivia Callahan MD * (dictated by Kimberly Farrell NP). CHIEF COMPLAINT: Suicidal ideation. HISTORY OF PRESENT ILLNESS: Mr. Cortez is a 64-year-old male with a past medical history significant for bipolar, history of hyponatremia, seizures, peripheral vascular disease, depression, COPD, and atrial fibrillation who was brought to the emergency room after, while he was at his doctor's office, he made a statement about being suicidal. The patient reports that he has been bipolar for a long time and has had depression. He reports that he constantly has suicidal thoughts. The patient is having a flight of thoughts during the interview. He reports that people with bipolar disease always have irrational thinking and suicidal thoughts. The patient reports he has no plan, but then reports, "I am always thinking about a plan and I would use a belt and hang from the ceiling." The patient reports that he has had bad depression for months. He denies any recent illnesses. Denies any fever, chills, unintended weight loss, chest pain or edema. Denies any cough, hemoptysis, or shortness of breath. No nausea, vomiting, diarrhea, or abdominal pain. He denies any gross hematuria or dysuria, focal weakness, or sensory loss. Denies any visual complaints, dysphagia, arthralgias, myalgias, rashes, lesions, open sores, psychosis, or anxiety. While in the emergency room, the patient had routine lab work drawn. He was found to have a sodium level of 119. Due to the patient's suicidal ideation and hyponatremia, hospital medicine was asked to see and evaluate for admission. PAST MEDICAL HISTORY: Significant for: 1. Bipolar. 2. History of hyponatremia. 3. Seizures. 4. Peripheral vascular disease. 5. Depression, status post electrotherapy. 6. COPD. 7. AFib. 8. Hypertension. 9. BPH. 10. Valvular heart disease. 11. Peripheral neuropathy. 12. History of SIADH. 13. Anxiety. 14. PTSD. PAST SURGICAL HISTORY: 1. Mitral valve replacement. 2. Pacemaker placement with AICD. 3. ORIF of the right ankle. 4. Hernia repair. 5. CABG. HOME MEDICATIONS: Include: 1. Keppra 750 mg p.o. t.i.d. 2. Depakote 1500 mg p.o. q.a.m. 3. Belsomra 20 mg at bedtime. 4. Pletal 100 mg p.o. b.i.d. 5. Digoxin 0.25 mg p.o. daily. 6. Breo Ellipta 1 puff daily. 7. Diltiazem 240 mg p.o. daily. 8. Sertraline 200 mg p.o. daily. 9. Lorazepam 2 mg at bedtime p.r.n. 10. Metoprolol 50 mg p.o. daily. 11. Tamsulosin 0.4 mg p.o. daily. 12. Incruse Ellipta 62.5 mcg p.o. daily. FAMILY HISTORY: No reported history of coronary artery disease, diabetes, or cancer. He reports his father from alcoholism. SOCIAL HISTORY: The patient reports he smokes a pack and a half a day. He reports 3 to 4 beers daily. Marijuana 1 to 2 times a month. He lives alone. Surrogate decision maker in the event he is unable to make his own decisions is Kirstin Rodriges or Alirio Toney. He is a full code. REVIEW OF SYSTEMS: A 14-point review of systems was completed. All pertinent positives are mentioned in the HPI. PHYSICAL EXAMINATION GENERAL: At this time, Mr. Cortez is a 64-year-old male. He is alert and oriented, resting on the stretcher in the emergency room. He appears anxious. He is well developed, well nourished. VITAL SIGNS: Blood pressure 133/82, heart rate 70, respirations 15, O2 saturation 98%, temperature was 97.4. HEENT: Head is atraumatic, normocephalic. Eyes: EOMs are intact. Sclerae anicteric and not pale. Oral mucosa appeared to be moist. NECK: Supple. LUNGS: Clear to auscultation bilaterally. No wheezes, rales, or rhonchi. CARDIAC: S1, S2. No rubs or gallops. ABDOMEN: Soft and nontender. Bowel sounds are present x4. EXTREMITIES: He is able to move all 4 extremities. There is no clubbing or cyanosis. NEUROLOGIC: He is awake, alert, and oriented x3. He appears restless. He does have a flight of ideas. He has no gross focal deficits. SKIN: Intact. LABORATORY DATA AND DIAGNOSTIC STUDIES: WBCs are 9.3, RBCs 4.68, hemoglobin 14.8, hematocrit was 43, platelet count was 281. Sodium 119, potassium 4.2, chloride 86, carbon dioxide was 24, anion gap was 9, BUN was 14, creatinine 0.81 , glucose was 205. Serum osmolality is pending. Calcium 9.4. ASTs are 17, ALTs are 12, alkaline phosphatase 74. TSH is 6.31. Urine was within normal limits with the exception of trace of ketones. Urine toxicology was positive for benzodiazepines. [place] was less than 10. Serum alcohol was less than 10. Salicylates were less than 2.50, acetaminophen less than 15, digoxin was 1.2. ASSESSMENT AND PLAN: Mr. Cortez is a 64-year-old male who was brought to the emergency room. He reports that he went to his primary care after report of being at his primary care physician's office and mentioning the word "suicide." He will be admitted inpatient for: 1. Suicidal ideation. The patient does report that earlier today he had thoughts of suicide. He does report that he has these thoughts often and constantly. Today, he reported during the evaluation the patient's plan would be to use a belt and hang himself. The patient will be placed on one-to-one observation. I will get a psychiatric consult. At this time, the patient does not have the ability to leave against medical advice due to his suicidal ideation. 2. Bipolar. The patient does have a flight of ideas. The patient should continue on his home medications as previously prescribed, Depakote 1500 mg p.o. daily and he will have a psychiatric evaluation. 3. Hyponatremia. The patient does have a history of hyponatremia in the past. He does present to the emergency room with a sodium level of 119. He does have a history of syndrome of inappropriate antidiuretic hormone secretion. I will get a serum osmolality, urine for osmolality and sodium, and make further recommendations on those findings. If it does appear that the patient does have syndrome of inappropriate antidiuretic hormone secretion, I will recommend fluid restrictions. Will repeat sodium level. 4. Atrial fibrillation. The patient does have a history of atrial fibrillation. He should continue on Cardizem, metoprolol, and digoxin as previously prescribed. 5. Peripheral vascular disease. The patient should continue on Pletal 100 mg p.o. b.i.d. 6. Chronic obstructive pulmonary disease. The patient is not in acute exacerbation of chronic obstructive pulmonary disease. He should continue on his Incruse Ellipta and Breo as previously prescribed. 7. History of seizures. He should continue on Keppra 750 mg p.o. t.i.d. 8. Benign prostatic hypertrophy. The patient should continue on Flomax 0.4 mg p.o. daily. 9. Alcohol Abuse. Patient does report he drinks 3-4 beers daily. I will place him WAM protocol and monitor for signs of alcohol withdrawal. 10. FEN. The patient can have a heart-healthy diet. 11. Code status. He is a full code. 12. DVT prophylaxis. I will place him on Lovenox subcu. TIME SPENT: Time spent on this admission was 60 minutes, greater than half that time was spent at the bedside reviewing events leading thus far to his hospitalization, performing physical exam, and reviewing my plan of care. I have discussed this with my attending, Dr. Alivia Callahan; she is in agreement with my plan. KIMBERLY FARRELL, [employer] SALES SUPERVISOR [id number]/[facility] #: [id number] MTDMaria C
[2019-04-07] MEDS: Folic Acid TAB* 1 MG PO SCH (22:39)
[2019-04-07] MEDS: Cilostazol TAB* 100 MG PO SCH (22:39)
[2019-04-07] MEDS: Multivitamins/Minerals TAB PO SCH (22:40)
[2019-04-08] MEDS: NS 0.9% 1000 ML** 1,000 ML IV SCH (04:02)
[2019-04-08] MEDS: HYDROcodone/ACETAMIN 5-325 MG* 1 TAB PO PRN (05:42)
[2019-04-08 06:56] LABS: ABS Eosinophils 0.1 10^3/ul (0-0.6); ABS Lymphocytes 1.7 10^3/ul (1.0-4.8); ABS Monocytes 0.7 10^3/ul (0-0.8); ABS Neutrophils 2.8 10^3/ul (1.5-7.7); Eosinophil % 1.6 %; Hematocrit 38 % (42-52); Hemoglobin 13.2 g/dL (14.0-18.0); Mean Corpuscular HGB Conc 35 g/dL (31-36); Mean Corpuscular Hemoglobin 32 pg (27-31); Mean Corpuscular Volume 91 fL (80-94); Mean Platelet Volume 7.5 fL (7.4-10.4); Platelet Count 225 10^3/uL (150-450); Red Blood Count 4.19 10^6 /uL (4.18-5.48); Red Cell Distribution Width 16 % (10-15); White Blood Count 5.4 10^3/uL (3.5-10.8)
[2019-04-08 07:15] LABS: BUN/Creatinine Ratio 13.9 (8-20); Calcium 8.6 mg/dL (8.6-10.3); EGFR Non-African American 109.9 (>60)
[2019-04-08] MEDS: Cilostazol TAB* 100 MG PO SCH ×2 (08:15→16:33)
[2019-04-08] MEDS: Sertraline* 100 MG TAB PO SCH (08:15)
[2019-04-08] MEDS: Folic Acid TAB* 1 MG PO SCH (08:16)
[2019-04-08] MEDS: Diltiazem CD CAP* 240 MG PO SCH (08:16)
[2019-04-08] MEDS: Multivitamins/Minerals TAB PO SCH (08:16)
[2019-04-08] MEDS: levETIRAcetam TAB* 500 MG PO SCH ×3 (08:16→21:41)
[2019-04-08] MEDS: Thiamine TAB* 100 MG TAB PO SCH (08:16)
[2019-04-08] MEDS: Acetaminophen TAB* 325 MG PO PRN (08:16)
[2019-04-08] MEDS: Tamsulosin CAP* 0.4 MG PO SCH (08:16)
[2019-04-08] MEDS: Divalproex ER TAB(*) 500 MG PO SCH (08:17)
[2019-04-08] MEDS: SPIRIVA Respimat* (tiotropium) 2.5 mcg/inh Inhaler INH SCH (08:55)
[2019-04-08] MEDS: Mometasone/Formoter 100/5 MDI INH SCH ×2 (08:55→20:24)
[2019-04-08] MEDS ORDERED: Metoprolol Succinate XL TAB* 50 MG PO SCH (09:00)
--- NOTE | 2019-04-08 15:34 | CONS ---
CONSULTATION REPORT: DATE OF CONSULT: 04/08/19 ATTENDING PROVIDER: Kimberly Farrell NP CONSULTATION PROVIDER: Loren Blackwell NP REASON FOR CONSULTATION: Cristhian Cortez has been reported to be suicidal. HISTORY OF PRESENT ILLNESS: Cristhian is a 64-year-old white male who is disabled. He is and has had many hospitalizations of psychiatric and physical nature and many non-admit emergency department presentations related to alcohol use and seizure disorder. He is currently on the fourth floor telemetry unit after being sent to the emergency department by his primary care provider. The primary care provider's office administered the C-SSRS, [place] Suicide Scale and discovered that during one of the questions he admitted that in his lifetime he has indeed felt suicidal. It is unclear how this was interpreted; however, Cristhian is not at this time experiencing suicidal thoughts. He stated to me in a very groggy state that he thinks it helps others interpret his thoughts to be "glamorous" when he says he is suicidal. Cristhian is somnolent to lethargic in his bed where I find him. He is wearing a blue paper shirt and a brief that he attempts to take off during being shifted from his bed to his chair so that he can eat lunch. He then declines to eat lunch and states that there is nothing that he likes and he is generally dissatisfied. As he did at his last consultation with me on 01/27/19 he brought up Alma Gómez and Tigre Burnette. He quoted a Latin phrase that Vasile has quoted in the past. He also indicated that he is no longer interested in [place]. He states that he thinks people are deceitful because they do not talk about how they must frequently feel as though they want to end their lives. He states that for him, the thoughts come and go and that this is not a time that he feels as though he actually wants to end his life. PAST PSYCHIATRIC HISTORY: Cristhian has had many psychiatric hospitalizations, more than 12 of them at [facility]. His last admission to the behavioral services unit was on 01/08/18. He should be receiving outpatient care at [facility], but he denies that this is helpful. He states he recently fired Dr. Ne Mckeon and is supposed to be seeing Luis Carlos Berrios at the clinic. He finds this is to be somewhat insulting. PREVIOUS DIAGNOSES: Include bipolar disorder, alcohol use disorder, nicotine use disorder, cannabis dependence, major depressive disorder, and a variety of personality disorder traits. PAST MEDICAL HISTORY: Hypertension, SIADH, peripheral neuropathy, peripheral vascular disease, COPD, seizure disorder, head trauma, and atrial fibrillation. PAST SURGICAL HISTORY: Pacemaker, mitral valve replacement, cataract surgery. There is a note in his last consultation that there was a planned vascular surgery on his ankle; I do not see in the medical record at this time that this occurred . MEDICATIONS: Previous medications include: 1. Risperdal. 2. Haloperidol. 3. Aripiprazole. 4. [place]. 5. Quetiapine. 6. Olanzapine. 7. Trazodone. 8. Lurasidone. 9. Mirtazapine. 10. Bupropion. 11. Sertraline. 12. Depakote. He has a history of many suicide attempts, the last one in 2013. He denies any recent attempts. He did admit that in this past December he thought of hanging himself. FAMILY PSYCHIATRIC HISTORY: Father has alcohol use disorder and mother has depression. SOCIAL HISTORY: Cristhian was born and raised in [place] by both parents. He has 2 brothers and a sister. He graduated from high school and has an associate's degree in [employer]. He is . He has 3 children who are estranged from him. He lives in [place]. 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 He states he is not currently working. LEGAL HISTORY: He was incarcerated for robbing a bank in 2007. He was on probation for 5 years and has a history of 1 DWI. He denies current probation or parole. HISTORY: None due to lower tone deafness. SUBSTANCE ABUSE HISTORY: Cristhian has a history of alcoholism since the late . Cristhian has a history and reports current daily alcohol use, although he does minimize it at this time. He was sober for approximately 7 years in the early . He has a history of bath salts and cannabis use. He has been to rehab in [place] in 1994 and in [place] in 1993. He has been referred to substance use rehab in [place], [place], while hospitalized by this unit, but only stayed for a day or 2. He is a 1 to 2 pack a day cigarette smoker. MENTAL STATUS EXAM: Cristhian is a white male who appears older than his stated age who is lying in a hospital bed in a blue paper top and no pants other than hospital briefs. He was covered in a blanket. He appears to be in some kind of pain, which he cannot identify other than stating "my gut." He grumbles and mumbles and is very difficult to wake up. He does not recognize me from any of our interactions. We have known each other for several years in a professional capacity and either he could not see me or did not recognize me. He did not have his glasses on. He is alert and oriented x4. His speech is articulate. He is grouchy. His affect is congruent. His thought processes are normal and his thought content is negative for suicidality or homicidality. He denies HI or . He is not hallucinating. His concentration is fair. His insight and judgment are fair to poor. DIAGNOSES: 1. Bipolar 1 disorder. 2. Alcohol use disorder. 3. Cannabis use disorder. 4. Tobacco use disorder. 5. Antisocial personality disorder. ASSESSMENT: Cristhian is a 64-year-old white male with a history of bipolar disorder, polysubstance dependence, and antisocial personality disorder. He is currently staying on the fourth floor telemetry unit. He is depressed and complains of disappointment in the world and its frailties and falsehoods. He does, however, want to be alive and is not in the mood to end his life at this time. RECOMMENDATION: Continue medical treatment, continue medications as they are. Thank you for the consult. LOREN BLACKWELL, JEFFREY [id number]/CPS #: [id number] YARIEL
[2019-04-08 16:07] LABS: BUN/Creatinine Ratio 13.7 (8-20); Calcium 8.4 mg/dL (8.6-10.3); EGFR African American 130.9 (>60); EGFR Non-African American 108.2 (>60); Potassium 4.3 mmol/L (3.5-5.0)
[2019-04-08] MEDS ORDERED: Digoxin TAB* 0.25 MG PO SCH (17:00)
[2019-04-08 20:22] LABS: BUN/Creatinine Ratio 13.8 (8-20); Calcium 8.3 mg/dL (8.6-10.3); EGFR African American 106.9 (>60); EGFR Non-African American 88.3 (>60); Potassium 4.5 mmol/L (3.5-5.0)
[2019-04-08] MEDS ORDERED: NS 0.9% 500 ML* 500 ML IV ONE (20:43)
[2019-04-08] MEDS: Enoxaparin(*) 40 MG/0.4 ML SYR SUBCUT SCH (21:41)
--- NOTE | 2019-04-08 23:22 | PN ---
Subjective Date of Service: 04/08/19 Interval History: Patient resting in bed, drowsy. No complaints voiced. Denies chest pain or shortness of breath . Sodium improving increased from 119-125- labs reviewed - likely combination of ETOH abuse and SIADH- Normal saline stopped and fluid restrictions placed. Seen by psych- stopped 1:1 observation.- recommended continuing medical management Family History: Unchanged from Admission Social History: Unchanged from Admission Past Medical History: Unchanged from Admission Objective Active Medications: Acetaminophen (Tylenol Tab*) 650 mg PO Q6H PRN PRN Reason: MILD PAIN or TEMP > 100.4 Last Admin: 04/08/19 08:16 Dose: 650 mg Hydrocodone Bitart/Acetaminophen ([place] 5-325 Tab*) 1 tab PO Q4H PRN PRN Reason: PAIN - MODERATE Last Admin: 04/08/19 05:42 Dose: 1 tab Cilostazol (Pletal Tab*) 100 mg PO BID AC [facility] Last Admin: 04/08/19 16:33 Dose: 100 mg Digoxin (Lanoxin Tab*) 0.25 mg PO DAILY@1700 [facility] Last Admin: 04/08/19 16:33 Dose: 0.25 mg Diltiazem HCl (Cardizem Cd Cap*) 240 mg PO DAILY [facility] Last Admin: 04/08/19 08:16 Dose: 240 mg Divalproex Sodium (Depakote Er Tab(*)) 1,500 mg PO QAM [facility] Last Admin: 04/08/19 08:17 Dose: 1,500 mg Enoxaparin Sodium (Lovenox(*)) 40 mg SUBCUT Q24H [facility] Last Admin: 04/08/19 21:41 Dose: 40 mg Folic Acid (Folvite Tab*) 1 mg PO DAILY [facility] Last Admin: 04/08/19 08:16 Dose: 1 mg Levetiracetam (Keppra Tab*) 750 mg PO TID [facility] Last Admin: 04/08/19 21:41 Dose: 750 mg Lorazepam (Ativan Tab(*)) 0 - 6 mg PO .PER [facility] PROTOCOL [facility]; Protocol Last Admin: 04/07/19 20:29 Dose: 2 mg Metoprolol Succinate (Toprol Xl Tab*) 25 mg PO DAILY [facility] Miscellaneous (Ativan Pyxis [place]) 1 ea N/A .ATIVAN IV AHUMADA PRN PRN Reason: PYXIS AHUMADA Mometasone Furoate/Formoterol Fumar (Dulera 100/5 Mdi*) 2 puff INH BID [facility] Last Admin: 04/08/19 20:24 Dose: 2 puff Multivitamins/Minerals (Theragran/Minerals Tab*) 1 tab PO DAILY [facility] Last Admin: 04/08/19 08:16 Dose: 1 tab Sertraline HCl (Zoloft*) 200 mg PO DAILY [facility] Last Admin: 04/08/19 08:15 Dose: 200 mg Tamsulosin HCl (Flomax Cap*) 0.4 mg PO DAILY [facility] Last Admin: 04/08/19 08:16 Dose: 0.4 mg Thiamine HCl (Vitamin B-1 Tab*) 100 mg PO DAILY [facility] Last Admin: 04/08/19 08:16 Dose: 100 mg Tiotropium [place] (Spiriva Respimat 2.5 Mcg) 2 puff INH DAILY [facility] Last Admin: 04/08/19 08:55 Dose: 2 puff Vital Signs - 8 hr 04/08/19 04/08/19 04/08/19 15:55 16:33 18:00 Temperature 97.4 F 97.1 F Pulse Rate 69 69 69 Respiratory 18 18 Rate Blood Pressure 94/60 78/43 (mmHg) O2 Sat by Pulse 98 100 Oximetry 04/08/19 04/08/19 18:08 20:27 Temperature Pulse Rate 83 Respiratory 14 Rate Blood Pressure 122/60 (mmHg) O2 Sat by Pulse 97 Oximetry Oxygen Devices in Use Now: None Appearance: drowsy resting in bed, no acute distress Eyes: No Scleral Icterus Ears/Nose/Mouth/Throat: Clear Oropharnyx, Mucous Membranes Moist Neck: NL Appearance and Movements; NL JVP, Trachea Midline Respiratory: Symmetrical Chest Expansion and Respiratory Effort, Clear to Auscultation Cardiovascular: NL Sounds; No Murmurs; No JVD, No Edema Abdominal: NL Sounds; No Tenderness; No Distention Extremities: No Edema, No Clubbing, Cyanosis Skin: No Rash or Ulcers Neurological: Alert and Oriented x 3 Nutrition: Taking PO's Result Diagrams: 04/08/19 06:19 04/08/19 19:50 Microbiology and Other Data: Microbiology 04/07/19 16:30 Nasal Screen MRSA (PCR) - Final Nasal Mrsa Not Detected Assess/Plan/Problems-Billing Assessment: Mr. Cortez is a 64 y.o male wiht a hx of bipolar and depression , hxof ETOH abuse who presented to the emergency room from his doctor's office after making suicidal comment in the office. Patient was found to have hyponatremia. - Patient Problems (1) Suicidal ideation Current Visit: No Status: Acute Code(s): R45.851 - SUICIDAL IDEATIONS SNOMED Code(s): 7860020 Comment: -hx of bipolar disorder with depression -patient sent to ED from doctor's office due to suicidal ideations -one to one monitor discontinued per psych -Psychiatry consulted- recommended continuing medical management - continue depakote, zoloft (2) Hyponatremia Current Visit: No Status: Acute Code(s): E87.1 - HYPO-OSMOLALITY AND HYPONATREMIA SNOMED Code(s): 26523372 Comment: -patient known to have chronic hyponatremia with hx of SIADH -sodium 119 on admission- increased to 124 after Normal saline - will stop IVF and start fluid restrictions 1500 cc/day - repeat Sodium At 2000 was 125 - will repeat BMP in the AM. (3) Afib Current Visit: No Status: Acute Code(s): I48.91 - UNSPECIFIED ATRIAL FIBRILLATION SNOMED Code(s): 20922238 Comment: - Rate controlled - Continue digoxin, diltiazem, metoprolol (4) Alcohol abuse Current Visit: No Status: Acute Code(s): F10.10 - ALCOHOL ABUSE, UNCOMPLICATED SNOMED Code(s): 70713017 Comment: No acute withdrawal symptoms - has ativan PRN - continue WAM protocol - MVI, Thiamine, folate (5) CAD (coronary artery disease) Current Visit: No Status: Acute Code(s): I25.10 - ATHSCL HEART DISEASE OF [place] CORONARY ARTERY W/O ANG PCTRS SNOMED Code(s): 28735446 Comment: - Continue aspirin, atorvastatin, metoprolol (6) COPD (chronic obstructive pulmonary disease) Current Visit: No Status: Acute Code(s): J44.9 - CHRONIC OBSTRUCTIVE PULMONARY DISEASE, UNSPECIFIED SNOMED Code(s): 06180790 Comment: - Continue Dulera, Spiriva (7) Hypotension Current Visit: No Status: Acute Comment: SBP 86 Will decrease metoprolol dose continue to monitor (8) Bipolar disorder Current Visit: No Status: Chronic Priority: Medium Onset Date: 03/27/14 Comment: - Continue home medication regimen. (depakote and keppra) (9) DVT prophylaxis Current Visit: No Status: Acute Code(s): BAD9614 - SNOMED Code(s): 213394191 Comment: neel (10) Full code status Current Visit: No Status: Acute Code(s): Z78.9 - OTHER SPECIFIED HEALTH STATUS SNOMED Code(s): 044009741 Comment:
[2019-04-09] MEDS ORDERED: Melatonin 3 MG TAB PO ONE (01:11)
[2019-04-09] MEDS: HYDROcodone/ACETAMIN 5-325 MG* 1 TAB PO PRN ×2 (03:33→11:04)
[2019-04-09] MEDS: LORazepam TAB(*) 1 MG PO SCH (05:00)
[2019-04-09] MEDS: SPIRIVA Respimat* (tiotropium) 2.5 mcg/inh Inhaler INH SCH (07:27)
[2019-04-09] MEDS: Mometasone/Formoter 100/5 MDI INH SCH (07:28)
[2019-04-09 07:32] LABS: Hematocrit 34 % (42-52); Hemoglobin 11.8 g/dL (14.0-18.0); Mean Corpuscular HGB Conc 35 g/dL (31-36); Mean Corpuscular Hemoglobin 32 pg (27-31); Mean Corpuscular Volume 91 fL (80-94); Mean Platelet Volume 8.2 fL (7.4-10.4); Platelet Count 203 10^3/uL (150-450); Red Blood Count 3.71 10^6 /uL (4.18-5.48); Red Cell Distribution Width 16 % (10-15); White Blood Count 6.5 10^3/uL (3.5-10.8)
[2019-04-09 07:40] LABS: BUN/Creatinine Ratio 15.8 (8-20); Calcium 8.5 mg/dL (8.6-10.3); EGFR African American 124.9 (>60); EGFR Non-African American 103.3 (>60); Potassium 4.2 mmol/L (3.5-5.0)
[2019-04-09] MEDS: Cilostazol TAB* 100 MG PO SCH (08:36)
[2019-04-09] MEDS: Diltiazem CD CAP* 240 MG PO SCH (08:36)
[2019-04-09] MEDS: Sertraline* 100 MG TAB PO SCH (08:36)
[2019-04-09] MEDS: Tamsulosin CAP* 0.4 MG PO SCH (08:36)
[2019-04-09] MEDS: Thiamine TAB* 100 MG TAB PO SCH (08:36)
[2019-04-09] MEDS: Multivitamins/Minerals TAB PO SCH (08:36)
[2019-04-09] MEDS: Folic Acid TAB* 1 MG PO SCH (08:37)
[2019-04-09] MEDS: levETIRAcetam TAB* 500 MG PO SCH ×2 (08:37→13:37)
[2019-04-09] MEDS: Divalproex ER TAB(*) 500 MG PO SCH (08:42)
[2019-04-09] MEDS ORDERED: Metoprolol Succinate XL TAB* 25 MG PO SCH (09:00)
[2019-04-09] MEDS ORDERED: Albuterol/Ipratropium NEB.SOL* Albuterol 2.5 MG/Ipratropium 0.5 MG 3 ML INH PRN (11:57)
[2019-04-09 15:59] VITALS: BP 100/70
[2019-04-09] MEDS: Acetaminophen TAB* 325 MG PO PRN (16:02)
[2019-04-09] MEDS ORDERED: Nystatin SUSPENSION* 100000 UNITS/ML 5 ML UDC PO SCH (17:00)
--- NOTE | 2019-04-09 23:26 | DS ---
CC: Dr. Louie Lewis * DISCHARGE SUMMARY: DATE OF ADMISSION: 04/07/19 DATE OF DISCHARGE: 04/09/19 PRIMARY CARE PROVIDER: Dr. Louie Lewis. MY ATTENDING WHILE IN THE HOSPITAL: Dr. Kusum Gamboa.* (DICTATED BY ISAC GIORDANO) PRIMARY DISCHARGE DIAGNOSES: 1. Hyponatremia, likely due to a combination of beer potomania and syndrome of inappropriate antidiuretic hormone secretion, improving. 2. Possible alcohol withdrawal. 3. Bipolar disorder. 4. Oral thrush. SECONDARY DISCHARGE DIAGNOSES: 1. History of seizure disorder. 2. Peripheral vascular disease. 3. Depression. 4. Chronic obstructive pulmonary disease. 5. History of atrial fibrillation. 6. Hypertension. 7. Benign prostatic hypertrophy. 8. Valvular heart disease. 9. Peripheral neuropathy. 10. Anxiety. 11. Posttraumatic stress disorder. 12. Mitral valve replacement. 13. Coronary artery bypass graft. 14. Pacemaker insertion with AICD. STUDIES DONE WHILE IN THE HOSPITAL: None. MEDICATIONS AT DISCHARGE: 1. Depakote ER 1500 mg p.o. q.a.m. 2. Diltiazem 240 mg p.o. daily. 3. Sertraline 200 mg p.o. daily. 4. Tamsulosin 0.4 mg p.o. daily. 5. Breo Ellipta 125, 1 puff inhalation daily. 6. Keppra 750 mg p.o. t.i.d. 7. Tylenol 650 mg p.o. t.i.d. as needed. 8. Pletal 100 mg p.o. b.i.d. 9. Lorazepam 2 mg p.o. at bedtime as needed. 10. Metoprolol succinate 50 mg p.o. daily. 11. Digoxin 0.25 mg p.o. daily. 12. Belsomra 20 mg p.o. at bedtime as needed. 13. Incruse Ellipta 62.5 mcg inhalation daily. 14. Nystatin 2000 units p.o. 4 times a day. New medications at discharge: 1. Nystatin. Medications discontinued at discharge: None. HOSPITAL COURSE: This is a brief summary of the patient's presentation. For more details, please see the history and physical from Kimberly Farrell NP on 04/07/19. In brief, the patient is a 64-year-old male with past medical history significant for the above, who has been admitted to this institution numerous times both in the medical and the psychiatric services. The patient came in to the emergency department as he was sent in from his primary care provider for suicidal ideation. In the emergency department, the patient did endorse suicidal ideation with a plan. The patient had routine blood work and was found to have hyponatremia at 119, which was lower than his chronic baseline. The patient has flights of thoughts and was seen in consultation by Loren Blackwell NP of Psychiatry, at which time, he denied being suicidal. At that time, he was discontinued on his one to one monitoring. His medications were continued as they were. The patient had urine osmolality of 261, urine sodium of 41, and he was initially given normal saline and then fluid restricted with improvement in sodium from 119 to 127 over the course of 2 days. Patient's mental status at this time improved. He became more cogent. He was noted to have some shortness of breath with wheezing, which responded to his home inhalers. The patient was believed to have been abusing alcohol before he came to the hospital , but showed no acute signs of alcohol withdrawal and required minimal Ativan while in the hospital. The patient had some hypotension, but this improved with fluids being given. The patient on 04/09/19 stated that he intended to leave the hospital against medical advice and I instructed about the risks of worsening hyponatremia if he continued to go. If he went home and had a worsening in his sodium that this could result in seizures and possible . He stated he understood the risks. He intended to come back if he needed to, but that he was constantly tormented by the thoughts inside his head and that he just needed to go home, a place that was quiet where he could feel some peace and that he intended to follow up with his outpatient cath nurse, his primary care provider for ongoing medical therapy and to attempt to get more care through the winter as he does not feel with his peripheral vascular disease , COPD and psychiatric disorders that he could handle it by himself. The patient showed appropriate insight and is deemed by this author to have capacity to leave against medical advice. The patient left against medical advice on 04/09/19. PHYSICAL EXAM ON THE DAY OF DISCHARGE: General: The patient is a 64-year-old male who appears much older than stated age, has a large scar in his face, and sitting in the bed, in no acute distress. Vital Signs: At the time of discharge, temperature 97.3, pulse rate 72, respiratory rate 20, oxygen saturation 97% on room air, blood pressure 100/70. HEENT: Head: Normocephalic , atraumatic. Sclerae anicteric. No conjunctival injection. Nasal mucosa moist. Oral mucosa moist. No pharyngeal erythema, discharge, or exudate. Neck : Supple, nontender. No lymphadenopathy. No carotid bruits auscultated. No JVD. Cardiac: Regular rate and rhythm. No clicks, murmurs, gallops, or rubs. Pulses are 2+ in the bilateral dorsalis pedis, posterior tibialis, and radial areas. Respiratory: Diminished throughout. Slight expiratory wheezing heard in the bilateral lower lobes. Abdomen: Soft, nontender, nondistended. Bowel sounds present and normoactive in all 4 quadrants. No hepatosplenomegaly. No abdominal bruits auscultated. No hepato-jugular reflux. Genitourinary: No suprapubic or CVA tenderness. Skin:Clean, dry, and intact. No rash. Neuro: Cranial nerves II through XII intact. Somewhat lethargic though easily arousable. No tremor. No asterixis. No other focal deficits. Alert and oriented x3. Psychiatric: Some flights of ideas, but generally cogent, understandable and appropriate. DISCHARGE PLAN BY PROBLEM: 1. Hyponatremia. The patient's hyponatremia is approaching where his normal baseline is. Because of this, it has previously been treated as SIADH, which his urine studies are somewhat consistent with. The patient's urine studies were drawn after he received fluids in the emergency department, which can make them more difficult to interpret. The patient is on Depakote and sertraline, both of which can cause SIADH though these were not changed while he was in the hospital due to his difficult to maintain psychiatric disease. The patient will be fluid restricted to 1.5 L per day. He stated understanding of this. He should also abstain from alcohol, which he states he understood and would attempt to do. The patient also has some wheezing, which will be treated with his home inhalers, which could be contributing to his SIADH. 2. Bipolar disorder. The patient is currently relatively euthymic. Per report from nursing staff that are familiar with his baseline, he is somewhat odd at all times. The patient should follow up with his [facility] mental health provider, though he has lost to do this. If he is not willing to see his mental health provider, he should follow up with his primary care provider for management of his psychiatric medications. 3. Peripheral vascular disease. Continue patient's Pletal. 4. Atrial fibrillation. Continue patient's digoxin, Cardizem and metoprolol. Digoxin level is 1.2 on admission. 5. Seizure disorder. Continue patient's Keppra and Depakote. The patient is subtherapeutic on his Depakote. It is possible he was not taking this at home. The patient should have followup levels through his primary care provider or his mental health provider. 6. History of alcohol abuse. The patient's alcohol was undetectable on admission and he did not show overt signs of withdrawal, but he does have a known history of drinking and endorses some alcohol abuse prior to admission. The patient should abstain entirety from alcohol. 7. Tobacco use disorder. The patient is counseled on the dangers of smoking, but he is pre-contemplative to quitting. 8. BPH. Continue patient's tamsulosin. DISPOSITION: Home. CONDITION: Guarded. TIME SPENT: Approximately 60 minutes was spent on the discharge of this patient , 30 of which was spent [id number] with the patient obtaining history and physical and discussing treatment plan. ISAC GIORDANO [id number]/CALEB #: [id number] YARIEL
[2019-04-10] MEDS ORDERED: Influenza VAC *QUAD* 2019-20* 0.5 ML SYRINGE IM ONE (09:00)
== END 2019-04-09 16:55 | disposition left against medical advice (07) | DRG 644 ==
LOC: ED 12:02 → MEDTELE 17:03 → UNDOADMIN 17:03 → MEDTELE 17:40
PROVIDERS: ADMIT Internal Medicine; ATTEND Internal Medicine
DX: E22.2 Syndrome of inappropriate secretion of antidiuretic hormone (principal); R45.851 Suicidal ideations; B37.0 Candidal stomatitis; F31.9 Bipolar disorder, unspecified; I73.9 Peripheral vascular disease, unspecified; J44.9 Chronic obstructive pulmonary disease, unspecified; I48.91 Unspecified atrial fibrillation; N40.0 Benign prostatic hyperplasia without lower urinary tract symptoms; G62.9 Polyneuropathy, unspecified; F43.10 Post-traumatic stress disorder, unspecified; F17.210 Nicotine dependence, cigarettes, uncomplicated; I10 Essential (primary) hypertension; H26.9 Unspecified cataract; F41.0 Panic disorder [episodic paroxysmal anxiety]; I95.9 Hypotension, unspecified; F60.2 Antisocial personality disorder; F12.90 Cannabis use, unspecified, uncomplicated; Y90.9 Presence of alcohol in blood, level not specified; G40.909 Epilepsy, unspecified, not intractable, without status epilepticus; Z53.29 Procedure and treatment not carried out because of patient's decision for other reasons; Z95.0 Presence of cardiac pacemaker; Z95.1 Presence of aortocoronary bypass graft; Z95.2 Presence of prosthetic heart valve; Z72.89 Other problems related to lifestyle; Z86.11 Personal history of tuberculosis
CPT/HCPCS: 36415; 80048; 80053; 80162; 80164; 80178; 80307; 80320; 80329; 81003; 83930; 83935; 84300; 84443; 85025; 85027; 87641; 94640; 96374; 99284; A9270-GY; G0480; J1650; J2060; J3411; J3535

== ENCOUNTER 2019-04-11 04:30 | Emergency (ER) | payer MEDICARE, MEDICAID ==
[2019-04-11] MEDS ORDERED: Nitro 2% OINT* (Nitroglycerin) 1 INCH/PAK PAK TOPICAL ONE (04:36)
--- NOTE | 2019-04-11 04:40 | ED ---
HPI Chest Pain - HPI Summary HPI Summary: This pt is a 64 Y/O M presenting to [facility] with a CC of CP that started at 0000 while he was laying on the couch watching the baseball game and has been present since the onset and is currently rated an 8/10 in severity. He states that he hasnt had this kind of pain before. He states that he needs a bypass surgery but has not quit smoking so he has been denied it. He states that he has issues walking due to neuropathy in his LE. He states a SHx of smoking tobacco and drinking 2 24 ounce cans which he states is his usual. He reports that he has had nausea. He denies any fever, diaphoresis, abdominal pain, and vomiting. He states no aggravating or alleviating factors. He has a PMHx of a mitral valve surgery, CAD, and COPD. - History of Current Complaint Chief Complaint: EDChestPainROMI Time Seen by Provider: 04/11/19 04:31 Hx Obtained From: Patient Onset/Duration: Started Hours Ago - 437, Still Present Time of Onset: 00:00 Timing: Constant Initial Severity: Severe Current Severity: Severe Pain Intensity: 8 Pain Scale Used: 0-10 Numeric Chest Pain Location: Diffuse Aggravating Factor(s): Nothing Alleviating Factor(s): Nothing Associated Signs and Symptoms: Positive: Chest Pain, Shortness of Breath, Other : - nausea. Negative: Fever, Diaphoresis, Nausea, Abdominal Pain - Additional Pertinent History Primary Care Physician: ERIN - Allergy/Home Medications Allergies/Adverse Reactions: Allergies Allergy/AdvReac Type Severity Reaction Status Date / Time No Known Allergies Allergy Verified 03/01/19 19:19 PMH/Surg Hx/FS Hx/Imm Hx Previously Healthy: Yes Endocrine/Hematology History: Reports: Hx Anticoagulant Therapy Denies: Hx Diabetes, Hx Thyroid Disease Cardiovascular History: Reports: Hx Auto Implanted Cardiovert Defib, Hx Hypertension, Hx Pacemaker/ICD - [employer]ANT - NOT MR SAFE/ CONDITIONAL, Hx Peripheral Vascular Disease, Hx Valvular Heart Disease - Recent valve replacement surgery, Other Cardiovascular Problems/Disorders - Hx Atrial Fibrillation and was treatment with Warfarin which has been d/c'd Respiratory History: Reports: Hx Chronic Bronchitis, Hx Chronic Obstructive Pulmonary Disease (COPD), Other Respiratory Problems/Disorders - poss aspiration Denies: Hx Asthma History: Reports: Other Problems/Disorders - History of SIADH Denies: Hx Renal Disease Musculoskeletal History: Reports: Other Musculoskeletal History - peripheral neuropathy Denies: Hx Arthritis, Hx Osteoporosis Sensory History: Reports: Hx Cataracts, Hx Contacts or Glasses Denies: Hx Hearing Aid Opthamlomology History: Reports: Hx Cataracts, Hx Contacts or Glasses Neurological History: Reports: Hx Seizures - seizure d/o, Other Neuro Impairments/Disorders - PERIPHERAL NEUROPATHY Denies: Hx Dementia Psychiatric History: Reports: Hx Anxiety, Hx Depression, Hx Panic Disorder, Hx Post Traumatic Stress Disorder, Hx Inpatient Treatment, Hx Community Mental Health Tx, Hx Bipolar Disorder, Hx Suicide Attempt, Hx of Violent Episodes Against Others, Hx Substance Abuse, Other Psychiatric Issues/Disorders - has had ECT treatment Denies: Hx Attention Deficit Hyperactivity Disorder, Hx Eating Disorder, Hx Schizophrenia - Surgical History Surgery Procedure, Year, and Place: CABG, PACEMAKER Hx Anesthesia Reactions: No - Immunization History Date of Tetanus Vaccine: PT STATES UNSURE Date of Influenza Vaccine: NONE Infectious Disease History: No Infectious Disease History: Reports: Hx Tuberculosis - hx of inactive TB Denies: Hx Clostridium Difficile, Hx Hepatitis, Hx Human Immunodeficiency Virus (HIV), Hx of Known/Suspected MRSA, Hx Shingles, Hx Known/Suspected VRE, Hx Known/Suspected VRSA, History Other Infectious Disease, Traveled Outside the [place] in Last 30 Days - Family History Known Family History: Positive: Other - Mother -- depression, Father -- EtOH abuse - Social History Occupation: Disabled Lives: Alone Alcohol Use: Daily Alcohol Amount: about 72 onces Hx Substance Use: Yes Substance Use Type: Reports: Marijuana Substance Use Comment - Amount & Last Used: Last used Sunday Hx Tobacco Use: Yes Smoking Status (MU): Heavy Every Day Tobacco Smoker Type: Cigarettes Amount Used/How Often: 1/2 PPD Length of Time of Smoking/Using Tobacco: 40 YRS Have You Smoked in the Last Year: Yes Review of Systems Negative: Fever, Skin Diaphoresis Positive: Chest Pain Positive: Nausea. Negative: Abdominal Pain, Vomiting All Other Systems Reviewed And Are Negative: Yes Physical Exam - Summary Physical Exam Summary: Appearance: Well-appearing, Well-nourished, lying in bed comfortably, Elderly debilitated in no acute distress Skin: Warm, dry, no obvious rash Eyes: sclera anicteric, no conjunctival pallor ENT: mucous membranes moist, pharynx appears normal Neck: Supple, nontender Respiratory: Clear to auscultation, no signs of respiratory distress Cardiovascular: Normal S1, S2. No murmurs. Normal distal pulses in tibial and radial bilaterally. Midline sternotomy scar on chest. Abdomen: Soft, nontender, normal active bowel sounds present Musculoskeletal: Normal, Strength/ROM Intact Neurological: A&Ox3, awake and alert, mentation is normal, speech is fluent and appropriate Psychiatric: affect is normal, does not appear anxious or depressed Triage Information Reviewed: Yes Vital Signs On Initial Exam: Initial Vitals Temp Pulse Resp BP Pulse Ox 98.0 F 91 18 156/96 99 04/11/19 04:32 04/11/19 04:32 04/11/19 04:32 04/11/19 04:32 04/11/19 04:32 Vital Signs Reviewed: Yes Procedures - Sedation Patient Received Moderate/Deep Sedation with Procedure: No Diagnostics - Vital Signs Vital Signs Temp Pulse Resp BP Pulse Ox 04/11/19 04:32 98.0 F 91 18 156/96 99 - Laboratory Result Diagrams: 04/11/19 04:53 04/11/19 04:47 Lab Statement: Any lab studies that have been ordered have been reviewed, and results considered in the medical decision making process. - Radiology CXR Radiology Interpretation Completed By: ED Physician Summary of Radiographic Findings: No acute processes. Pending offical review. - EKG 0433 Cardiac Rate: NL - 95 BPM EKG Rhythm: Atrial Fibrillation Ectopy: PVCs Summary of EKG Findings: NSR at 95 BPM with atrial fibrillation, PVCs and an incomplete R bundle branch block. No acute cardiac damages. Interpreted by Dr. Gomes at 0435 04/11/19. Chest Pain Course/Dx - Course Course Of Treatment: This pt is a 64 Y/O M presenting to [facility] with a CC of CP that started at 0000 while he was laying on the couch watching the baseball game and has been present since the onset. He states that he hasnt had this kind of pain before. His PE found that he is currently in no acute distress and he has a sterotomy scar on his chest. His EKG at 0433 shows a NSR at 95 BPM with atrial fibrillation, PVCs and an incomplete R bundle branch block. No acute cardiac damages. His CXR shows no acute processes. This pt will be a sign out to Dr. Quintero at shift change 0700 10/4/19 pending his second troponin. He will be diagnosed with Chest Pain. - Diagnoses Provider Diagnoses: Chest pain Discharge ED - Sign-Out/Discharge Documenting (check all that apply): Sign-Out Patient Signing out patient TO: Colten Quintero - Discharge Plan Condition: Stable Disposition: AGAINST MEDICAL ADVICE Referrals: Louie Lewis MD [Primary Care Provider] - - Billing Disposition and Condition Condition: STABLE Disposition: Against Medical Advice - Attestation Statements Document Initiated by Scribe: Yes Documenting Scribe: Parmjit Tavares Provider For Whom Scribe is Documenting (Include Credential): Jorge Gomes MD Scribe Attestation: Parmjit Meade, scribed for Jorge Gomes MD on 04/11/19 at 1908. Scribe Documentation Reviewed: Yes Provider Attestation: The documentation as recorded by the Parmjit fajardo accurately reflects the service I personally performed and the decisions made by me, Jorge Gomes MD Status of Scribe Document: Viewed
[2019-04-11 05:00] LABS: ABS Eosinophils 0.1 10^3/ul (0-0.6); ABS Lymphocytes 1.5 10^3/ul (1.0-4.8); ABS Monocytes 0.7 10^3/ul (0-0.8); ABS Neutrophils 2.7 10^3/ul (1.5-7.7); Hematocrit 35 % (42-52); Hemoglobin 12.1 g/dL (14.0-18.0); Lymphocyte % 30.8 %; Mean Corpuscular HGB Conc 34 g/dL (31-36); Mean Corpuscular Hemoglobin 32 pg (27-31); Mean Corpuscular Volume 92 fL (80-94); Mean Platelet Volume 7.5 fL (7.4-10.4); Nucleated Red Blood Cells % 0.1; Platelet Count 238 10^3/uL (150-450); Red Blood Count 3.83 10^6 /uL (4.18-5.48); Red Cell Distribution Width 16 % (10-15)
[2019-04-11 05:28] LABS: Albumin 3.6 g/dL (3.2-5.2); Albumin/Globulin Ratio 1.3 (1-3); BUN/Creatinine Ratio 11.1 (8-20); EGFR Non-African American 109.9 (>60); Globulin 2.7 g/dL (2-4); Potassium 4.4 mmol/L (3.5-5.0); Total Bilirubin 0.4 mg/dL (0.2-1.0); Total Protein 6.3 g/dL (6.4-8.9)
[2019-04-11 05:30] LABS: Troponin I 0.01 ng/mL (<0.04)
[2019-04-11] MEDS ORDERED: Morphine 4 MG/ML VIAL (1 ml) 4 MG/ML VIAL IV ONE (05:32)
--- OUTSIDE RECORDS SUMMARY | 2019-04-11 05:41 | XMS REPORT | Continuity of Care Document ---
:1955 External Reference #:[id number] Author Name Casandra Michelle, JEFFREY Address [address] [place] [address] Care Team Providers Name Role Phone Rosales Reich MD - Cardiovascular Care Team Information Motion Picture Narrator Disease Juan Luis Joseph MD - Surgery Care Team Information Motion Picture Narrator [phone] Kristen Adams - Vascular Surgery Care Team Information Motion Picture Narrator [phone] [facility] Emergency Room - Emergency Care Care Team Information Motion Picture Narrator Visiting Nurse Services - Home Health Care Team Information Motion Picture Narrator Louie Lewis MD - Family Care Team Information Motion Picture Narrator [phone] Nasreen Hartman - Pulmonary Disease Care Team Information Motion Picture Narrator [phone] Alexandria Barksdale ([facility]) - Care Team Information Motion Picture Narrator Surgery of the Hand [facility] Pain Clinic - Interventional Pain Care Team Information Motion Picture Narrator [phone] Luis Antonio Robison MD - Neurology Care Team Information Motion Picture Narrator [phone] Problems Active Problems Provider Date Peripheral vascular [...] M.D. Onset: 10/26/2016 Atherosclerotic heart disease of [place] coronary Kellee Bangura M.D. Onset: artery without [...] Medications SIG Qnty Indications Ordering Date Provider Hydrocodone-Acetaminop 1 tab by mouth Louie Schafer 03/21/2019 hen every 8 hours as MD Debbie 10-325mg Tablets needed Oxycodone-Acetaminophe 1 tab 4 times a 120tabs Louie Schafer 03/21/2019 n day as needed MD Debbie 10-325mg Tablets pain Belsomra one by mouth 14tabs Louie Schafer 03/20/2019 20mg Tablets nightly prn. MD Debbie Oxycodone-Acetaminophe take one by 120tabs Louie Schafer 02/14/2019 n mouth every 6 MD Debbie 7.5-325mg Tablets hours as needed for pain Lorazepam take 1 tablet by 15tabs [facility], 02/07/2019 1mg Tablets mouth three M.D. times a day daily as needed for anxiety Tamsulosin HCL take one capsule 30caps E87.1 [...] Once Daily In The Morning History Medications Hydrocodone-Acetaminophen 1 by mouth 21tabs Karena Romeo 01/01/2019 - 5-325mg Tablets every 8 hours JEFFREY Cantor 03/21/2019 as needed Fluticasone Propionate 1 spray each 16gm Casandra Gunderson 11/23/2018 - 50mcg/Act Suspension nostril every JEFFREY Michelle 12/04/2018 day-generic Digoxin 1 by mouth Louie Schafer 11/13/2018 - 250mcg Tablets every day MD Debbie 11/13/2018 Hydrocodone-Acetaminophen 1 tab by 21tabs S01.0 Louie Schafer 11/13/2018 - 10-325mg Tablets mouth every 8 1xD MD Debbie 2018 hours as needed Immunizations CPT Code Status Date Vaccine Lot # [id number] Given 04/05/2018 Pneumococcal Immunization [id number] Given 04/05/2018 Influenza Vac, Quadrivalent, Slit Virus, Im [id number] Given 05/18/2016 Influenza Vac, Quadrivalent, Slit Virus, Im [id number] Given 05/31/2015 Influenza Vac, Quadrivalent, Slit Virus, Im [id number] Given 05/05/2014 Pneumococcal Conjugate Vacc-[id number] Given 03/25/2012 DO Not Use Split Influenza Virus Vaccine Vital Signs Date Vital Result Comment 04/07/2019 1:09pm BP Systolic 98 mmHg BP Diastolic 74 mmHg Heart Rate 80 /min Body Temperature 97.9 F Respiratory Rate 20 /min 03/21/2019 2:37pm BP Systolic 112 mmHg BP Diastolic 70 mmHg Heart Rate 68 /min Body Temperature 97.7 F Respiratory Rate 17 /min Height 68.5 inches 5'8.50" Weight 158.00 lb BMI (Body Mass Index) 23.7 kg/m2 Results Test Date Facility Test Result H/L Range Note CBC Auto Diff 04/07/2019 [facility] White Blood Count 9.3 10^3/uL Normal 3.5- 10.8 Red Blood Count 4.68 10^6/uL Normal 4.18-5.48 Hemoglobin 14.8 g/dL Normal 14.0-18.0 Hematocrit 43 % Normal 42-52 Mean Corpuscular Volume 91 fL Normal 80-94 Mean Corpuscular Hemoglobin 32 pg High 27-31 Mean Corpuscular HGB Conc 35 g/dL Normal 31-36 Red Cell Distribution Width 15 % Normal 10-15 Platelet Count 281 10^3/uL Normal 150-450 Mean Platelet Volume 7.2 fL Low 7.4-10.4 Abs Neutrophils 6.6 10^3/uL Normal 1.5-7.7 Abs Lymphocytes 1.7 10^3/uL Normal 1.0-4.8 Abs Monocytes 0.9 10^3/uL High 0-0.8 Abs Eosinophils 0.1 10^3/uL Normal 0-0.6 Abs Basophils 0.0 10^3/uL Normal 0-0.2 Abs Nucleated RBC 0.0 10^3/uL Granulocyte % 71.0 % Lymphocyte % 18.2 % Monocyte % 9.9 % Eosinophil % 0.6 % Basophil % 0.3 % Nucleated Red Blood Cells % 0.0 Comp Metabolic Panel 04/07/2019 [facility] Potassium 4.2 mmol/L Normal 3.5-5.0 Chloride 86 mmol/L Low 101-111 Co2 Carbon Dioxide 24 mmol/L Normal 22-32 Glucose 105 mg/dL High 70-100 Blood Urea Nitrogen 14 mg/dL Normal 6-24 Creatinine 0.81 mg/dL Normal 0.67-1.17 BUN/Creatinine Ratio 17.3 Normal 8-20 Calcium 9.4 mg/dL Normal 8.6-10.3 Total Protein 7.5 g/dL Normal 6.4-8.9 Albumin 4.1 g/dL Normal 3.2-5.2 Globulin 3.4 g/dL Normal 2-4 Albumin/Globulin Ratio 1.2 Normal 1-3 Total Bilirubin 0.70 mg/dL Normal 0.2-1.0 Alkaline Phosphatase 74 U/L Normal 34-104 Alt 12 U/L Normal 7-52 Ast 17 U/L Normal 13-39 Egfr Non- 95.9 >60 Egfr 116.1 >60 1 Sodium 119 mmol/L Critical low 135-145 2 Anion Gap 9 mmol/L Normal 2-11 Laboratory test finding 04/07/2019 [facility] Acetaminophen < 15 g/mL 3 Alcohol < 10 mg/dL Normal <10 Salicylate < 2.50 mg/dL <30 TSH (Thyroid Stim Horm) 6.31 mcIU/mL High 0.34-5.60 Urinalysis Profile 04/07/2019 [facility] Urine Color Yellow Urine Appearance Clear Urine Specific Ringoes 1.018 Normal 1.010-1.030 Urine pH 6.0 Normal 5-9 Urine Urobilinogen Negative Negative Urine Ketones Trace Abnormal Negative Urine Protein Negative Negative Urine Leukocytes Negative Negative Urine Blood Negative Negative Urine Nitrite Negative Negative Urine Bilirubin Negative Negative Urine Glucose Negative Negative Urine Drug SCR ED 04/07/2019 [facility] Urine Amphetamine None Detected None Detect & Pain Clinic Screen Urine Barbiturates Screen None Detected None Detect Urine Benzodiazepine Screen Presumptive Posi <SEE NOTE> Abnormal None Detect 4 Urine Cannabinoids Screen None Detected None Detect Urine Cocaine Screen None Detected None Detect Urine Opiates Screen None Detected None Detect Urine Phencyclidine Screen None Detected None Detect 5 Laboratory test 04/07/2019 [facility] [place] < 0.10 Low 0.6-1.2 finding mmol/L Laboratory test 03/06/2019 [facility] Valproic Acid 33 ug/mL Low 50-100 6, 7 finding [address] [facility] (Depakote)(R), [place] [address] S (607)- - Levetiracetam (Keppra), S 30.3 ug/mL 10.0-40.0 8 CBC Electronic Fma 03/06/2019 [facility] WBC 6.0 x10^3/UL 4.0- 10.0 RBC 4.12 x10^6/UL 3.93-6.00 HGB 13.0 g/dL 12.0-17.0 HCT 38 % 35-50 MCV 92.7 fL 80.0-95.0 MCH 31.6 pg 25.6-32.2 MCHC 34.0 g/dL 32.2-36.0 RDW-CV 14.8 % High 11.6-14.4 PLT 230 x10^3/UL 163-400 MPV 10.7 fL 9.4-12.4 Garret# 3.99 x10^3/UL 1.56-6.13 Lymph# 1.24 x10^3/UL 1.18-3.74 Stearns# 0.61 x10^3/UL 0.24-0.82 Eos # 0.1 x10^3/UL 0.0-0.5 Baso # 0.04 x10^3/UL 0.01-0.08 Garret% 66.1 % 34.0-70.0 Lymph % 20.5 % 20.0-52.0 Stearns% 10.1 % 5.0-12.0 Eos% 2.3 % 0.7-7.0 Baso% 0.7 % 0.1-1.2 Comprehensive Metabolic 03/06/2019 [facility]) Sodium 132 mEq/L Low 134-149 9 Prof Potassium 4.9 mEq/L 3.6-5.5 Chloride 98 [...] GFR >60 ml/min/1.73m^ >=60 CBC Auto Diff 03/04/2019 [facility] White Blood Count 7.1 10^3/uL Normal 3.5- [...] Cells % 0.0 Laboratory test finding 03/04/2019 [facility] Ammonia 31 mcmol/L Normal 16-53 Comp Metabolic Panel 03/04/2019 [facility] Sodium 132 mmol/L Low 135-145 Potassium 3.9 [...] Egfr Non- 101.7 >60 Egfr 123.1 >60 10 Laboratory test 03/04/2019 [facility] Levetiracetam 35.9 g/mL 11 finding (Keppra) CBC Auto Diff 03/01/2019 [facility] White Blood Count 5.3 10^3/uL Normal 3.5- [...] % Nucleated Red Blood Cells % 0.0 Comp Metabolic Panel 03/01/2019 [facility] Sodium 128 mmol/L Low 135-145 Potassium 3.7 [...] Egfr Non- 51.9 >60 Egfr 62.8 >60 12 Laboratory test finding 03/01/2019 [facility] Acetaminophen < 15 g/mL 13 Alcohol < 10 mg/dL Normal <10 Levetiracetam (Keppra) 60.3 g/mL Abnormal 14 Laboratory test 02/27/2019 [facility] Ammonia, Plasma 58 g/dL 27-102 15 finding [address] [place] [address] (607)- - CBC Electronic 02/27/2019 [facility] WBC 5.62 4.0-10.0 (Fma New) (607)- - RBC 4.48 3.93-6.0 Hemoglobin (Fma/CMC/CTX) [...] 0.9 % 0.7-7.0 Basophil% 0.5 % 0-1.2 Comprehensive Metabolic 02/27/2019 [facility]ma) Sodium 134 [...] >60 ml/min/1.73m^ >=60 GFR >60 ml/min/1.73m^ >=60 Wound Culture/Sensi 02/18/2019 [facility] Wound/Misc SEE RESULT 16 Culture-Gram Stain BELOW Laboratory test 02/18/2019 [facility] MRSA/S. aureus Ssti SEE RESULT 17 finding PCR BELOW Urine Drug SCR ED & 02/18/2019 [facility] Urine Amphetamine None Detected None Detect Pain Clinic Screen Urine Barbiturates Screen None Detected None Detect Urine Benzodiazepine Screen Presumptive Posi <SEE NOTE> Abnormal None Detect 18 Urine Cannabinoids Screen Presumptive Posi <SEE NOTE> Abnormal None Detect 19 Urine Cocaine Screen None Detected None Detect Urine Opiates Screen None Detected None Detect Urine Phencyclidine Screen None Detected None Detect 20 CBC Auto Diff 02/18/2019 [facility] White Blood Count 5.6 10^3/uL Normal 3.5- [...] Blood Cells % 0.0 Laboratory test finding 02/18/2019 [facility] Ammonia 69 mcmol/L High 16-53 Lactic Acid 0.8 mmol/L Normal 0.5-2.0 21 Inr/Protime 02/18/2019 [facility] Inr 1.20 High 0.82-1.09 22 Laboratory test finding 02/18/2019 [facility] Troponin I 0.01 ng/mL <0.04 23 Comp Metabolic Panel 02/18/2019 [facility] Sodium 130 mmol/L Low 135-145 Potassium 3.6 [...] Egfr Non- 93.3 >60 Egfr 112.9 >60 24 Laboratory test finding 02/18/2019 [facility] Magnesium 1.5 mg/dL Low 1.9-2.7 Creatine Kinase(CK) 60 U/L Normal 10-223 C Reactive Protein 72.96 mg/L High <8.01 Alcohol < 10 mg/dL Normal <10 Urinalysis Profile 02/18/2019 [facility] Urine Color Yessica Urine Appearance Clear Urine Specific Ringoes 1.017 Normal 1.010-1.030 Urine pH 7.0 Normal 5-9 Urine Urobilinogen Positive Abnormal Negative Urine Ketones Trace Abnormal Negative Urine Protein Negative Negative Urine Leukocytes Negative Negative Urine Blood Negative Negative Urine Nitrite Negative Negative Urine Bilirubin Negative Negative Urine Glucose Negative Negative Laboratory test finding 01/19/2019 [facility] Digoxin 1.3 ng/ml Normal 0.8-2.0 Valproic Acid (Depakene) 92.0 g/mL Normal 50-100 Alcohol < 10 mg/dL Normal <10 Comp Metabolic Panel 01/19/2019 [facility] Sodium 129 mmol/L Low 135-145 Potassium 4.1 [...] Egfr Non- 57.8 >60 Egfr 69.9 >60 25 Laboratory test 01/19/2019 [facility] Partial Thrombo 31.5 seconds Normal 26.0- 38.0 finding Time PTT Inr/Protime 01/19/2019 [facility] Inr 1.08 Normal 0.82-1.09 26 Type & Screen 01/19/2019 [facility] Patient Blood AB Negative Type Antibody Screen NEGATIVE CBC Auto Diff 01/19/2019 [facility] White Blood Count 4.0 10^3/uL Normal 3.5- 10.8 Red Blood Count 3.77 10^6/uL Low 4.18-5.48 [...] % Nucleated Red Blood Cells % 0.1 Comprehensive Metabolic 01/13/2019 [facility]) Sodium 134 mEq/L 134-149 Prof Potassium 4.8 mEq/L 3.6-5.5 Chloride 98 mEq/L 94-112 Carbon Dioxide 27 mEq/L 21-32 Glucose 157 mg/dL High 70-105 27 BUN 7 mg/dL 6-26 Creatinine 0.8 mg/dL [...] ml/min/1.73m^ >=60 GFR >60 ml/min/1.73m^ >=60 Laboratory 01/13/2019 [facility] Valproic Acid 87 ug/mL 50-100 28, 29 test finding [address] [facility] (Depakote)(R),[place] [address] (607)- - CBC Electronic 01/13/2019 [facility] WBC 5.28 4.0-10.0 (Fma New) (607)- - RBC 4.25 3.93-6.0 Hemoglobin (Fma/CMC/CTX) [...] 0.7-7.0 Basophil% 0.4 % 0-1.2 Laboratory test 12/18/2018 [facility] Digoxin 0.6 ng/ml Low 0.8-2.0 finding Urine Drug SCR ED 12/18/2018 [facility] Urine Amphetamine None Detected None Detect & Pain Clinic Screen Urine Barbiturates Screen None Detected None Detect Urine Benzodiazepine Screen None Detected None Detect Urine Cannabinoids Screen None Detected None Detect Urine Cocaine Screen None Detected None Detect Urine Opiates Screen None Detected None Detect Urine Phencyclidine Screen None Detected None Detect 30 Urinalysis Profile 12/18/2018 [facility] Urine Color Yellow Urine Appearance Cloudy Urine Specific Ringoes 1.006 Low 1.010-1.030 Urine pH 7.0 Normal 5-9 Urine Urobilinogen Negative Negative Urine Ketones Negative Negative Urine Protein Negative Negative Urine Leukocytes Negative Negative Urine Blood Negative Negative Urine Nitrite Negative Negative Urine Bilirubin Negative Negative Urine Glucose Negative Negative Laboratory test finding 12/18/2018 [facility] Acetaminophen < 15 g/mL 31 Alcohol 67 mg/dL High <10 Salicylate < 2.50 mg/dL <30 TSH (Thyroid Stim Horm) 4.04 mcIU/mL Normal 0.34-5.60 Comp Metabolic Panel 12/18/2018 [facility] Sodium 129 mmol/L Low 135-145 Potassium 4.0 [...] Egfr Non- 78.2 >60 Egfr 94.6 >60 32 CBC Auto Diff 12/18/2018 [facility] White Blood Count 5.3 10^3/uL Normal 3.5- [...] Blood Cells % 0.1 Laboratory test finding 12/18/2018 [facility] Ammonia 50 mcmol/L Normal 16-53 B-Type Natriuretic Peptide BNP 248 pg/mL High <=100 Laboratory 12/16/2018 [facility] Valproic Acid 44 ug/mL Low 50-100 33, 34 test finding [address] [facility] (Depakote)(R),[place] [address] (606)- - Levetiracetam (Keppra), S 53.5 ug/mL High 10.0-40.0 35 Laboratory test finding 11/24/2018 [facility] C Reactive Protein 32.52 mg/L High <8.01 Troponin I 0.01 ng/mL <0.04 36 Valproic Acid (Depakene) 35.0 g/mL Low 50-100 Alcohol < 10 mg/dL Normal <10 Blood Culture SEE RESULT BELOW 37 Comp Metabolic Panel 11/24/2018 [facility] Sodium 124 mmol/L Low 135-145 Potassium 4.3 [...] Egfr Non- 91.0 >60 Egfr 110.2 >60 38 Sputum Culture & 11/24/2018 [facility] Sputum Culture SEE RESULT 39 Sensitiv Gram Stain BELOW Laboratory test 11/24/2018 [facility] B-Type Natriuretic 501 pg/mL High <=100 finding Peptide BNP CBC Auto Diff 11/24/2018 [facility] White Blood Count 6.6 10^3/uL Normal 3.5- [...] Cells % 0.1 Laboratory test finding 11/24/2018 [facility] Lactic Acid 0.8 mmol/L Normal 0.5- 2.0 40 Arterial Blood Gas 11/24/2018 [facility] PH Arterial 7.41 Normal 7.35-7.45 Pco2 Arterial 36 mmHg Normal 35-45 Po2 Arterial 89 mmHg Normal 80-100 O2 Saturation Arterial 98.3 % High 94.0-98.0 Base Excess Arterial -1.4 mmol/L Normal -2.0-2.0 41 Hco3 Arterial 23.7 mmol/L Normal 19-31 Laboratory test 11/24/2018 [facility] D Dimer 932 ng/mL High Less 42 finding Quantitative Than 230 Inr/Protime 11/24/2018 [facility] Inr 1.11 High 0.82-1.0 43 9 Laboratory test 11/04/2018 [facility] Digoxin, Serum 0.8 ng/mL 0.5-0.9 44 , 45 finding [address] [place] [address] (923)- - Basic Metabolic 10/23/2018 [facility]) Sodium 128 mEq/L Low 134- 149 46 Profile Potassium 4.7 mEq/L 3.6-5.5 Chloride 91 mEq/L Low 94-112 47 Carbon Dioxide 25 mEq/L 21-32 Glucose 108 mg/dL High 70-105 48 BUN 10 mg/dL 6-26 Creatinine 0.9 mg/dL 0.6-1.4 BUN/Creat Ratio 11.1 CALC 8.0-36.0 Calcium 9.2 mg/dL 8.6-10.2 GFR Non- >60 ml/min/1.73m^ >=60 GFR >60 ml/min/1.73m^ >=60 Laboratory test 10/23/2018 [facility]) Magnesium, Serum 1.7 mEq/L 1.2-2.1 finding Laboratory test 10/23/2018 [facility] Digoxin, Serum 1.8 ng/mL High 0.5-0.9 49 finding [address] [place] [address] (840)- - 1 Because ethnic data is not always [...] 5 Kidney failure <15 (or dialysis) 2 Critical Result NA:[id number] Called to [id number] at: 14:03:53 by:[id number] Read back by:[email or web address] 3 Therapeutic concentration: <50 ug/mL Toxic concentration: >120 ug/mL 4 Presumptive Positive Presumptive positive results are unconfirmed. 5 The urine specimen was tested at the listed cutoffs: Drug class test level (ng/mL) Amphetamines 500 Barbiturates 200 Benzodiazepine metabolites 200 Cocaine metabolites 150 Cannabinoids 50 Opiates 300 Pcp 25 Specimen was received without chain of custody. Results should be used for medical purposes only. 6 1 serum pour off from red top tube 7 Detection Limit = 4 <4 indicates None Detected Toxicity may occur at levels of 100-500. Measurements of free unbound valproic acid may improve the assess- ment of clinical response. 8 This test was developed and its performance characteristics determined by [facility]. It has not been cleared or approved by the Food and Drug Administration. 9 RESULTS VERIFIED BY REPEAT ANALYSIS 10 Because ethnic data is not always [...] 5 Kidney failure <15 (or dialysis) 11 REFERENCE VALUE 12.0 - 46.0 ADDITIONAL INFORMATION This test was developed and its performance characteristics determined by [facility] in a manner consistent with CLIA requirements. This test has not been cleared or approved by the U.S. Food and Drug Administration. Test Performed by: [facility] [address] [place] [address] 12 Because ethnic data is not always [...] 5 Kidney failure <15 (or dialysis) 13 Therapeutic concentration: <50 ug/mL Toxic concentration: >120 ug/mL 14 REFERENCE VALUE 12.0 - 46.0 ADDITIONAL INFORMATION This test was developed and its performance characteristics determined by [facility] in a manner consistent with CLIA requirements. This test has not been cleared or approved by the U.S. Food and Drug Administration. Test Performed by: [facility] [address] [place] [address] 15 FROZEN 16 SEE RESULT BELOW Name: GILDA CORTEZ : [address]: Aurora Fitzgerald DO Acct: [id number] Unit: [id number] AGE: 64 Location: [place] [address] Re02/18/19 SEX: M Status: ADM IN SPEC: [id number] SIENA: 02/18/19-1045 [facility] DR: Shruti CHAU REQ: [id number] RECD: 02/18/19 STATUS: [facility]: Anahi Lewis MD _ SOURCE: WOUND SPDESC:OTHER ORDERED: Culture Stain COMMENTS: R FOOT ULCER QUERIES: Specimen Description R FOOT ULCER Procedure Result Reported Site Wound/Misc Gram Stain Final 02/18/19- 1618 ML 1+ Epithelial Cells 2+ Neutrophils 1+ Gram Positive Cocci Wound/Misc Culture PENDING * ML - Main Lab . END OF REPORT DEPARTMENT OF PATHOLOGY, [address] [place] [address] Alirio Hawkins M.D. Director [facility] # [id number] 17 SEE RESULT BELOW Name: GILDA CORTEZ : [address]: William Bangura MD Acct: [id number] Unit: [id number] AGE: 64 Location: [facility] Re02/18/19 SEX: M Status: ADM IN SPEC: [id number] SIENA: 02/18/19-5 [facility] DR: Shruti CHAU REQ: [id number] RECD: 02/18/19 STATUS: MICHAEL GANT DR: Anahi Lewis MD [...] . END OF REPORT DEPARTMENT OF PATHOLOGY, [address] [place] [address] Alirio Hawkins M.D. Director [facility] # [id number] 18 Presumptive Positive Presumptive positive results are unconfirmed. 19 Presumptive Positive Presumptive positive results are unconfirmed. 20 The urine specimen was tested at the listed cutoffs: Drug class test level (ng/mL) Amphetamines 500 Barbiturates 200 Benzodiazepine metabolites 200 Cocaine metabolites 150 Cannabinoids 50 Opiates 300 Pcp 25 Specimen was received without chain of custody. Results should be used for medical purposes only. 21 [facility] Severe Sepsis and Septic Shock Management Bundle Measure requires all lactic acids initially measuring >2.0 mmol/L be repeated. 22 Standard intensity warfarin therapeutic range: 2.0-3.0 High intensity warfarin therapeutic range: 2.5-3.5 23 Troponin-I testing on Plasma Separator Tubes (PST) has a known false positive rate of 0.20-0.40%. All positive troponins reflex immediately to secondary confirmatory testing. Using the [employer] DxI 800 Access Immunoassay systems, the 99th percentile upper reference limit was demonstrated to be < 0.03 ng/mL. 24 Because ethnic data is not always [...] 5 Kidney failure <15 (or dialysis) 25 Because ethnic data is not always [...] 5 Kidney failure <15 (or dialysis) 26 Standard intensity warfarin therapeutic range: 2.0-3.0 High intensity warfarin therapeutic range: 2.5-3.5 27 NON-FASTING 28 1 serum pour off from red top tube 29 Detection Limit = 4 <4 indicates None Detected Toxicity may occur at levels of 100-500. Measurements of free unbound valproic acid may improve the assess- ment of clinical response. 30 The urine specimen was tested at [...] 5 Kidney failure <15 (or dialysis) 33 2 serum pour offs from red top tubes 34 Detection Limit = 4 <4 indicates None Detected Toxicity may occur at levels of 100-500. Measurements of free unbound valproic acid may improve the assess- ment of clinical response. 35 This test was developed and its performance characteristics determined by [facility]. It has not been cleared or approved by the Food and Drug Administration. 36 Troponin-I testing on Plasma Separator Tubes (PST) has a known false positive rate of 0.20-0.40%. All positive troponins reflex immediately to secondary confirmatory testing. Using the [employer] DxI 800 Access Immunoassay systems, the 99th percentile upper reference limit was demonstrated to be < 0.03 ng/mL. 37 SEE RESULT BELOW Name: GILDA CORTEZ : [address]: William Bangura MD Acct: [id number] Unit: [id number] AGE: 63 Location: [place] [address] Re11/24/18 Dis: 11/27/18 SEX: M Status: DIS IN SPEC: [id number] SIENA: 11/24/[address]: Aung Alexander MD REQ: [id number] RECD: 11/24/18 STATUS: MICHAEL GANT DR: Loiue Lewis MD _ SOURCE: BLOOD,VENO SPDESC: ORDERED: Blood Cult Procedure Result Reported Site Aerobic Culture Bottle Final 11/29/18- 0857 ML No Growth Day 5 Anaerobic Culture Bottle Final 11/29/18- 0855 ML No Growth Day 5 * ML - Main Lab . END OF REPORT DEPARTMENT OF PATHOLOGY, [address] [place] [address] Alirio Hawkins M.D. Director [facility] # [id number] 38 Because ethnic data is not always [...] [address]: William Bangura MD Acct: [id number] Unit: [id number] AGE: 63 Location: [place] [address] Re11/24/18 SEX: M Status: ADM IN SPEC: [id number] SIENA: 11/24/[address]: Aung Alexander MD REQ: [id number] RECD: 11/24/18 STATUS: RES ALFREDA DR: Louie Lewis MD _ SOURCE: SPUTUM,EXP SPDESC: ORDERED: Sputum Cult/GS Procedure Result Reported Site Sputum Smear Final 11/24/18- 1005 ML 2+ Neutrophils 2+ Nucleated Cells 1+ Epithelial Cells Mixed Morphotypes, resembling Normal Kannan Sputum Culture Preliminary 11/26/18- 1325 ML Organism 1 ENTEROBACTER SPECIES Quantity 1+ * ML - Main Lab . END OF REPORT DEPARTMENT OF PATHOLOGY, [address] [place] [address] Alirio Hawkins M.D. Director [facility] # [id number] 40 [facility] Severe Sepsis and Septic Shock Management Bundle Measure requires all lactic acids initially measuring >2.0 mmol/L be repeated. 41 Reference ranges based on room air. 42 Please note: The following may produce a false positive D Dimer test: - Rheumatoid factor greater than 60 IU/ml - Plasma hemoglobin greater than 0.05 gm/dl - Bilirubin greater than 50 mg/dl - Lipids greater than 1000 mg/dl - FDP greater than 20 ug/ml 43 Standard intensity warfarin therapeutic range: 2.0-3.0 High intensity warfarin therapeutic range: 2.5-3.5 44 1 serum pour off from red top tube 45 Concentrations above 2.0 ng/mL are generally considered toxic. Some overlap of toxic and non-toxic values have been reported. Detection Limit = 0.4 ng/mL Therapeutic range is derived from 2013 ACCF/AHA Guidelines for the Management of Heart Failure. 46 consistent w/ previous results 47 consistent w/ previous results 48 NON-FASTING 49 Concentrations above 2.0 ng/mL are generally considered toxic. Some overlap of toxic and non-toxic values have been reported. Detection Limit = 0.4 ng/mL Therapeutic range is derived from 2013 ACCF/AHA Guidelines for the Management of Heart Failure. Procedures Date Code Description Status 03/26/2017 [id number] Colonoscopy Completed 03/19/2017 [id number] Colonoscopy Completed Medical Devices Description No Information Available Encounters Type Date Location Provider Dx Diagnosis Office Visit 03/21/2019 Main Office Louie Schafer S82.51xD Disp fx of med 4:00p MD Debbie malleolus of r tibia, 7thD Office Visit 03/07/2019 Main Office Louie Schafer S82.51xD Disp fx of med 11:20a MD Debbie malleolus of r tibia, 7thD G40.909 Epilepsy, unsp, not intractable, without status epilepticus Office Visit 02/27/2019 6:30p Main Office Shahana Rosa Wood, L03.115 Cellulitis of [place] right lower limb E72.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, unspecified I10 Essential (primary) hypertension I48.2 Chronic atrial fibrillation M25.571 Pain in right ankle and joints of right foot F10.20 Alcohol dependence, uncomplicated F41.1 Generalized anxiety disorder I25.10 Athscl heart disease of [place] coronary artery w/o ang pctrs G40.909 Epilepsy, [...] Office Visit 11/13/2018 12:00p Main Office Louie Schafer I48.2 Chronic atrial [...] Barboza 02/27/2019 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[place] ISAC Barboza coronary artery with 02/27/2019 G40.909 [...] pm - Louie Lewis MD at Main Office Functional Status Description No Information Available Mental Status Description No Information Available Referrals Refer to Dr Reason for Referral Status Appt Date Visiting Nurse Services Consult and treat, internal fixation distal Sent fibula and medial melleolus. LT [address] [place] [address] [phone] [facility] EVALUATE AND TREAT FOR PAIN MANAGEMENT Patient Declined [address] [facility] [id number] [phone]
--- NOTE | 2019-04-11 07:20 | ED ---
Progress - Progress Note Progress Note: This pt was signed out from Dr. Gomes to Dr. Quintero, pending disposition, awaiting second troponin. Re-Evaluation - Re-Evaluation First Eval Re-Evaluation Time: 07:46 Comment: I went to reassess the pt and he is upset. He refused multiple times the second troponin. Pt refuses admission to the hospital. Pt is requesting to leave against medical advice. Course/Dx - Course Course Of Treatment: Patient was signed out from Dr. Gomes at shift change. He recommends to get a second troponin and possibly admit the patient to the hospital. The patient refuses the second troponin, he refuses to be admitted to the hospitalist to rule out acute coronary syndrome. The patient signed the AGAINST MEDICAL ADVICE. I extensively discussed with the patient the benefits and risk of leaving AMA. I also discussed the alternatives to leaving AMA, however, the patient still insists to leave the hospital AMA. The patient is clinically sober, free from distracting injury, appears to have intact insight and judgment and reason and in my opinion has the capacity to make decisions. Patient has full capacity and is cognitively intact. The patient presents with Chest pain, I have explained that I am concerned with the above symptoms and may represent ACS and . The patient verbalizes understanding of my concerns. I have also explained the results of the labs and even though they are normal the primary nurse and the charge nurse also strongly recommended that the patient should not leave AMA. Patient understands the risk of leaving AMA, which includes but is not restricted to . Patient signed the AMA form. Patient was also advised to return to ED if he changes his mind or if the symptoms worsen or other symptoms appear. Patient understands and agrees. Again, I discussed all the findings and test results with the patient. Patient was instructed to return to the emergency room immediately if any of the symptoms return or worsen. Plan of care was discussed with the patient and understands and agrees. All questions were answered at patient satisfaction. There were no further complaints or concerns. Patient signed AMA and he was discharged AMA. - Diagnoses Provider Diagnoses: Chest pain Discharge ED - Sign-Out/Discharge Documenting (check all that apply): Patient Departure - AMA, Receiving Sign-Out Receiving patient FROM: Jorge Gomes - Discharge Plan Condition: Stable Disposition: AGAINST MEDICAL ADVICE Referrals: Louie Lewis MD [Primary Care Provider] - - Attestation Statements Document Initiated by Scribe: Yes Documenting Scribe: Kusum Fernandez Provider For Whom Scribe is Documenting (Include Credential): Colten Quintero MD Scribe Attestation: Kusum Meade, scribed for Colten Quintero MD on 04/11/19 at 0811. Status of Scribe Document: Ready
[2019-04-11 07:56] VITALS: BP 139/83
== END 2019-04-11 07:45 | disposition left against medical advice (07) ==
LOC: ED 04:30
DX: R07.9 Chest pain, unspecified (principal); R06.02 Shortness of breath; R11.0 Nausea; 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native coronary artery without angina pectoris; Z95.4 Presence of other heart-valve replacement; Z79.01 Long term (current) use of anticoagulants; Z95.810 Presence of automatic (implantable) cardiac defibrillator; I10 Essential (primary) hypertension; F41.9 Anxiety disorder, unspecified; F32.9 Major depressive disorder, single episode, unspecified; F17.210 Nicotine dependence, cigarettes, uncomplicated
CPT/HCPCS: 36415; 71046; 80053; 80320; 83605; 84484; 85025; 93005; 96374; 99284; A9270-GY; G0480; J2270

== ENCOUNTER 2019-05-05 23:11 | Emergency (ER) | payer MEDICARE, MEDICAID ==
[2019-05-05] MEDS ORDERED: Permethrin 1% LOTION* 59 ML BTL TOPICAL ONE (23:36)
[2019-05-06 01:33] LABS: ABS Eosinophils 0.3 10^3/ul (0-0.6); ABS Lymphocytes 1.1 10^3/ul (1.0-4.8); ABS Monocytes 0.6 10^3/ul (0-0.8); ABS Neutrophils 4.4 10^3/ul (1.5-7.7); Eosinophil % 5.2 %; Hematocrit 42 % (42-52); Hemoglobin 14.4 g/dL (14.0-18.0); Lymphocyte % 17.2 %; Mean Corpuscular HGB Conc 34 g/dL (31-36); Mean Corpuscular Hemoglobin 32 pg (27-31); Mean Corpuscular Volume 93 fL (80-94); Mean Platelet Volume 7.6 fL (7.4-10.4); Platelet Count 226 10^3/uL (150-450); Red Blood Count 4.53 10^6 /uL (4.18-5.48); Red Cell Distribution Width 16 % (10-15); White Blood Count 6.4 10^3/uL (3.5-10.8)
[2019-05-06 01:42] LABS: INR 1.09 (0.82-1.09)
--- NOTE | 2019-05-06 01:46 | ED ---
Shortness of Breath - HPI Summary HPI Summary: This patient is a 64 year old M presenting to [facility] with a chief complaint of SOB since 2 days ago. Pt states he received oxygen in the ambulance. The patient rates the pain 0/10 in severity. Symptoms aggravated by movement. Symptoms alleviated by nothing. Patient reports neuropathy of feet and fingers, difficulty walking. Pt smokes. - History of Current Complaint Chief Complaint: EDShortnessOfBreath Time Seen by Provider: 05/06/19 01:38 Hx Obtained From: Patient Onset/Duration: Sudden Onset, Lasting Days - 2, Still Present Timing: Constant Current Severity: Mild Aggravating Factors: Movement Alleviating Factors: Nothing - Allergy/Home Medications Allergies/Adverse Reactions: Allergies Allergy/AdvReac Type Severity Reaction Status Date / Time No Known Allergies Allergy Verified 03/01/19 19:19 PMH/Surg Hx/FS Hx/Imm Hx Previously Healthy: No Endocrine/Hematology History: Reports: Hx Anticoagulant Therapy Denies: Hx Diabetes, Hx Thyroid Disease Cardiovascular History: Reports: Hx Auto Implanted Cardiovert Defib, Hx Hypertension, Hx Pacemaker/ICD - TouchLocal -GUIANDANT - NOT MR SAFE/ CONDITIONAL, Hx Peripheral Vascular Disease, Hx Valvular Heart Disease - Recent valve replacement surgery, Other Cardiovascular Problems/Disorders - Hx Atrial Fibrillation and was treatment with Warfarin which has been d/c'd Respiratory History: Reports: Hx Chronic Bronchitis, Hx Chronic Obstructive Pulmonary Disease (COPD), Other Respiratory Problems/Disorders - poss aspiration Denies: Hx Asthma History: Reports: Other Problems/Disorders - History of SIADH Denies: Hx Renal Disease Musculoskeletal History: Reports: Other Musculoskeletal History - peripheral neuropathy Denies: Hx Arthritis, Hx Osteoporosis Sensory History: Reports: Hx Cataracts, Hx Contacts or Glasses Denies: Hx Hearing Aid Opthamlomology History: Reports: Hx Cataracts, Hx Contacts or Glasses Neurological History: Reports: Hx Seizures - seizure d/o, Other Neuro Impairments/Disorders - PERIPHERAL NEUROPATHY Denies: Hx Dementia Psychiatric History: Reports: Hx Anxiety, Hx Depression, Hx Panic Disorder, Hx Post Traumatic Stress Disorder, Hx Inpatient Treatment, Hx Community Mental Health Tx, Hx Bipolar Disorder, Hx Suicide Attempt, Hx of Violent Episodes Against Others, Hx Substance Abuse, Other Psychiatric Issues/Disorders - has had ECT treatment Denies: Hx Attention Deficit Hyperactivity Disorder, Hx Eating Disorder, Hx Schizophrenia - Surgical History Surgical History: Yes Surgery Procedure, Year, and Place: CABG, PACEMAKER Hx Anesthesia Reactions: No - Immunization History Date of Tetanus Vaccine: PT STATES UNSURE Date of Influenza Vaccine: NONE Infectious Disease History: No Infectious Disease History: Reports: Hx Tuberculosis - hx of inactive TB Denies: Hx Clostridium Difficile, Hx Hepatitis, Hx Human Immunodeficiency Virus (HIV), Hx of Known/Suspected MRSA, Hx Shingles, Hx Known/Suspected VRE, Hx Known/Suspected VRSA, History Other Infectious Disease, Traveled Outside the [place] in Last 30 Days - Family History Known Family History: Positive: Other - Mother -- depression, Father -- EtOH abuse - Social History Alcohol Use: Daily Alcohol Amount: about 72 onces Hx Substance Use: Yes Substance Use Type: Reports: Marijuana Substance Use Comment - Amount & Last Used: Last used Sunday Hx Tobacco Use: Yes Smoking Status (MU): Heavy Every Day Tobacco Smoker Type: Cigarettes Amount Used/How Often: 1/2 PPD Length of Time of Smoking/Using Tobacco: 40 YRS Have You Smoked in the Last Year: Yes Review of Systems Positive: Shortness Of Breath Musculoskeletal: Other - positive - difficulty walking Neurological: Other - positive - neuropathy of feet and fingers All Other Systems Reviewed And Are Negative: Yes Physical Exam - Summary Physical Exam Summary: General: Well-developed, Well-nourished MALE. No acute distress. HEENT: Normocephalic, Atraumatic. Eyes: Conjuctiva normal, PERRL. Ears: TMs within normal limits. Nares: (-) discharge, (-) erythema. Oropharynx: Clear, mucous membranes moist, (-) exudates. Neck: Soft, FROM, (-) lymphadenopathy, (-) thyromegaly, (-) JVD. Cardiovascular: Normal sinus rhythm, (-) murmur. Lungs: Clear to auscultation bilaterally (-) wheezes, (-) rales, Bronchi in right lower lobe. Fair air exchange Abdomen: Soft, non-tender, non-distended, (-) organomegaly, normal bowel sounds. Back: (-) CVA tenderness Extremities: No edema. Skin: Warm, dry, (-) rash. Neuro: Alert and oriented x3, no focal deficits. Psychiatric: Mood normal, affect normal. Triage Information Reviewed: Yes Vital Signs On Initial Exam: Initial Vitals Temp Pulse Resp BP Pulse Ox 97.8 F 91 18 194/109 98 05/05/19 23:18 05/05/19 23:18 05/05/19 23:18 05/05/19 23:18 05/05/19 23:18 Vital Signs Reviewed: Yes Procedures - Sedation Patient Received Moderate/Deep Sedation with Procedure: No Diagnostics - Vital Signs Vital Signs Temp Pulse Resp BP Pulse Ox 05/05/19 23:18 97.8 F 91 18 194/109 98 - Laboratory Lab Results: Lab Results 05/06/19 05/06/19 Range/Units 01:20 01:20 WBC 6.4 (3.5-10.8) 10^3/uL RBC 4.53 (4.18-5.48) 10^6 /uL Hgb 14.4 (14.0-18.0) g/dL Hct 42 (42-52) % MCV 93 (80-94) fL MCH 32 H (27-31) pg MCHC 34 (31-36) g/dL RDW 16 H (10-15) % Plt Count 226 (150-450) 10^3/uL MPV 7.6 (7.4-10.4) fL Neut % (Auto) 67.9 % Lymph % (Auto) 17.2 % [place] % (Auto) 9.0 % Eos % (Auto) 5.2 % Baso % (Auto) 0.7 % Absolute Neuts (auto) 4.4 (1.5-7.7) 10^3/ul Absolute Lymphs (auto) 1.1 (1.0-4.8) 10^3/ul Absolute Monos (auto) 0.6 (0-0.8) 10^3/ul Absolute Eos (auto) 0.3 (0-0.6) 10^3/ul Absolute Basos (auto) 0.0 (0-0.2) 10^3/ul Absolute Nucleated RBC 0.0 10^3/ul Nucleated RBC % 0.0 INR (Anticoag Therapy) 1.09 (0.82-1.09) Result Diagrams: 05/06/19 01:20 05/06/19 01:20 Lab Statement: Any lab studies that have been ordered have been reviewed, and results considered in the medical decision making process. - Radiology CXR Radiology Interpretation Completed By: ED Physician Summary of Radiographic Findings: Impression: Right middle lobe pneumonia - CT Chest/Thorax CTA CT Interpretation Completed By: Radiologist Summary of CT Findings: IMPRESSION: 1. No pulmonary embolism. 2. Evidence for congestive heart failure. 3. Moderate to large right pleural effusion. 4. Mild centrilobular emphysematous changes. 5. Mild cardiomegaly. 6. Pulmonary nodules measuring up to 13 mm as detailed above. 7. Improvement in the mediastinal lymphadenopathy since the prior CT on 11/24/2018. These findings were reviewed by Dr. Soriano. - EKG 2320 Cardiac Rate: NL - 93 BPM EKG Rhythm: Atrial Fibrillation Summary of EKG Findings: EKG at 2320 shows 93 BPM, a-fib, no STEMI Course/Dx - Course Course Of Treatment: 64-year-old male with shortness of breath. Found to have CHF and pneumonia. Given Lasix IV with good urine output. Started on antibiotics and breathing treatments. CT chest negative. ABG demonstrated adequate oxygen saturation. Patient discharged to home after consultation with hospitalist. Advised Lasix and Augmentin as outpatient. Follow-up with PCP within 2-3 days. Follow-up sooner for any worsening symptoms - Diagnoses Provider Diagnoses: CHF (congestive heart failure) - Physician Notifications Discussed Care of Patient With: Zeus White Time Discussed With Above Provider: 03:08 Instructed by Provider To: Other - Dr. White suggests taking an ABG and CT to get definitive findings for admission. At 0627, Dr. White says pt should be discharged. Discharge ED - Sign-Out/Discharge Documenting (check all that apply): Patient Departure - discharge - Discharge Plan Condition: Stable Disposition: HOME Prescriptions: Amoxicillin/Clavulanate TAB* [Augmentin TAB 875*] 875 mg PO BID #20 tab Furosemide [Lasix] 40 mg PO DAILY #10 tablet Patient Education Materials: Heart Failure (ED) Referrals: Louie Lewis MD [Primary Care Provider] - 3 Days Additional Instructions: Follow up with your primary care provider within 3 days. Return to the ED for any new or worsening symptoms. - Billing Disposition and Condition Condition: STABLE Disposition: Home - Attestation Statements Document Initiated by Scribe: Yes Documenting Scribe: Derek Burnette Provider For Whom Scribe is Documenting (Include Credential): Dr. Zuri Soriano MD Scribe Attestation: Derek Meade scribed for Dr. Zuri Soriano MD on 05/06/19 at 0637. Scribe Documentation Reviewed: Yes Provider Attestation: The documentation as recorded by the urbanoibrakel, Derek Burnette accurately reflects the service I personally performed and the decisions made by me, Dr. Zuri Soriano MD Status of Scribe Document: Viewed
[2019-05-06 01:50] LABS: ALT 7 U/L (7-52); AST 14 U/L (13-39); Albumin/Globulin Ratio 1.2 (1-3); Alkaline Phosphatase 85 U/L (34-104); Anion Gap 8 mmol/L (2-11); BUN/Creatinine Ratio 15.8 (8-20); Blood Urea Nitrogen 12 mg/dL (6-24); CO2 Carbon Dioxide 28 mmol/L (22-32); Calcium 9.7 mg/dL (8.6-10.3); Chloride 95 mmol/L (101-111); EGFR African American 124.9 (>60); EGFR Non-African American 103.3 (>60); Globulin 3.4 g/dL (2-4); Glucose 70 mg/dL (70-100); Sodium 131 mmol/L (135-145); Total Protein 7.4 g/dL (6.4-8.9)
[2019-05-06] MEDS ORDERED: Albuterol/Ipratropium NEB.SOL* Albuterol 2.5 MG/Ipratropium 0.5 MG 3 ML INH ONE (02:19)
[2019-05-06] MEDS ORDERED: cefTRIAXone(*) 2 GM in NS 0.9% 100 ML* 100 ML IVPB ONE (02:22)
[2019-05-06] MEDS ORDERED: Furosemide IV* 10 MG/ML VIAL (40 MG) IV SLOW PU ONE (02:23)
[2019-05-06] MEDS ORDERED: Azithromycin 500 mg/250 ml NS 500 MG/250 ML BAG IVPB ONE (02:24)
[2019-05-06] MEDS ORDERED: LORazepam TAB(*) 1 MG PO ONE (03:14)
[2019-05-06 03:20] LABS: Alcohol < 10 mg/dL (<10)
[2019-05-06] MEDS ORDERED: Iohexol 350* (CONTRAST) 500 ML MDV IV ONE (03:45)
--- OUTSIDE RECORDS SUMMARY | 2019-05-06 06:01 | XMS REPORT | Continuity of Care Document ---
:1955 External Reference #:[id number] Author Name Louie Lewis MD Address [address] [place] [address] Care Team Providers Name Role Phone Rosales Reich MD - Cardiovascular Care Team Information Certified Nurses Aide Disease Juan Luis Joseph MD - Surgery Care Team Information Certified Nurses Aide Kristen Adams - Vascular Surgery Care Team Information Certified Nurses Aide [phone] [facility] [place] - Emergency Care Care Team Information Certified Nurses Aide Visiting Nurse Services - Home Health Care Team Information Certified Nurses Aide [phone] Louie Lewis MD - Family Care Team Information Certified Nurses Aide Medicine Naseren Servin - Pulmonary Disease Care Team Information Certified Nurses Aide Alexandria Barksdale ([facility]) - Care Team Information Certified Nurses Aide Surgery of the Hand [facility] [place] - Interventional Pain Care Team Information Certified Nurses Aide [phone] Luis Antonio Robison MD - Neurology Care Team Information Certified Nurses Aide Problems Active Problems Provider Date Peripheral vascular [...] M.D. Onset: 10/26/2016 Atherosclerotic heart disease of [place] coronary Kellee Bangura M.D. Onset: artery without [...] Date Provider Hydrocodone-Acetaminop 1 tab by mouth 30tabs Louie Schafer 03/21/2019 hen every 8 hours as MD Debbie 10-325mg Tablets needed Oxycodone-Acetaminophe 1 tab 4 times a 120tabs Louie Schafer 03/21/2019 n day as needed MD Debbie 10-325mg Tablets pain Belsomra one by mouth 30tabs Jamar Marquez, 03/20/2019 20mg Tablets nightly as M.D. needed for insomnia Oxycodone-Acetaminophe take one by 120tabs Louie Schafer [...] CPT Code Status Date Vaccine Lot # [id number] Given 04/05/2018 Pneumococcal Immunization [id number] Given 04/05/2018 Influenza Vac, Quadrivalent, Slit Virus, Im [id number] Given 05/18/2016 Influenza Vac, Quadrivalent, Slit Virus, Im [id number] Given 05/31/2015 Influenza Vac, Quadrivalent, Slit Virus, Im [id number] Given 05/05/2014 Pneumococcal Conjugate Vacc-[id number] Given 03/25/2012 DO Not Use Split Influenza Virus Vaccine Vital Signs Date Vital Result Comment 04/30/2019 12:41pm BP Systolic 100 mmHg BP Diastolic 78 mmHg Heart Rate 80 /min Body Temperature 97.7 F Respiratory Rate 18 /min Height 68.5 inches 5'8.50" Weight 157.00 lb BMI (Body Mass Index) 23.5 kg/m2 04/17/2019 11:09am BP Systolic 118 mmHg BP Diastolic 64 mmHg Heart Rate 96 /min Body Temperature 97.5 F Respiratory Rate 17 /min Weight 156.00 lb Results Test Date Facility Test Result H/L Range Note Basic Metabolic 04/17/2019 [facility] Sodium 123 mEq/L Low 134- 149 1 Profile Potassium 4.4 mEq/L 3.6-5.5 Chloride 94 mEq/L 94-112 Carbon Dioxide 23 mEq/L 21-32 Glucose 110 mg/dL High 70-105 BUN 16 mg/dL 6-26 Creatinine 0.8 mg/dL 0.6-1.4 BUN/Creat Ratio 20.0 CALC 8.0-36.0 Calcium 9.2 mg/dL 8.6-10.2 GFR Non- >60 ml/min/1.73m^ >=60 GFR >60 ml/min/1.73m^ >=60 CBC Auto Diff 04/11/2019 [facility] [place] White Blood Count 5.0 10^3/uL Normal 3.5- 10.8 Red Blood Count 3.83 10^6/uL Low 4.18-5.48 Hemoglobin 12.1 g/dL Low 14.0-18.0 Hematocrit 35 % Low 42-52 Mean Corpuscular Volume 92 fL Normal 80-94 Mean Corpuscular Hemoglobin 32 pg High 27-31 Mean Corpuscular HGB Conc 34 g/dL Normal 31-36 Red Cell Distribution Width 16 % High 10-15 Platelet Count 238 10^3/uL Normal 150-450 Mean Platelet Volume 7.5 fL Normal 7.4-10.4 Abs Neutrophils 2.7 10^3/uL Normal 1.5-7.7 Abs Lymphocytes 1.5 10^3/uL Normal 1.0-4.8 Abs Monocytes 0.7 10^3/uL Normal 0-0.8 Abs Eosinophils 0.1 10^3/uL Normal 0-0.6 Abs Basophils 0.0 10^3/uL Normal 0-0.2 Abs Nucleated RBC 0.0 10^3/uL Granulocyte % 53.1 % Lymphocyte % 30.8 % Monocyte % 13.2 % Eosinophil % 2.0 % Basophil % 0.9 % Nucleated Red Blood Cells % 0.1 Comp Metabolic Panel 04/11/2019 [facility] Sodium 127 mmol/L Low 135-145 Potassium 4.4 mmol/L Normal 3.5-5.0 Chloride 94 mmol/L Low 101-111 Co2 Carbon Dioxide 27 mmol/L Normal 22-32 Anion Gap 6 mmol/L Normal 2-11 Glucose 81 mg/dL Normal 70-100 Blood Urea Nitrogen 8 mg/dL Normal 6-24 Creatinine 0.72 mg/dL Normal 0.67-1.17 BUN/Creatinine Ratio 11.1 Normal 8-20 Calcium 9.0 mg/dL Normal 8.6-10.3 Total Protein 6.3 g/dL Low 6.4-8.9 Albumin 3.6 g/dL Normal 3.2-5.2 Globulin 2.7 g/dL Normal 2-4 Albumin/Globulin Ratio 1.3 Normal 1-3 Total Bilirubin 0.40 mg/dL Normal 0.2-1.0 Alkaline Phosphatase 65 U/L Normal 34-104 Alt 10 U/L Normal 7-52 Ast 16 U/L Normal 13-39 Egfr Non- 109.9 >60 Egfr 133.0 >60 2 Laboratory test finding 04/11/2019 [facility] Troponin I 0.01 ng/mL <0.04 3 Lactic Acid 1.0 mmol/L Normal 0.5-2.0 4 Laboratory test 04/11/2019 [facility] [place] Alcohol 32 mg/dL High <10 finding CBC Auto Diff 04/07/2019 [facility] [place] White Blood Count 9.3 10^3/uL Normal 3.5- [...] Cells % 0.0 Comp Metabolic Panel 04/07/2019 [facility] [place] Potassium 4.2 mmol/L Normal 3.5-5.0 Chloride 86 [...] Egfr Non- 95.9 >60 Egfr 116.1 >60 5 Sodium 119 mmol/L Critical low 135-145 6 Anion Gap 9 mmol/L Normal 2-11 Laboratory test finding 04/07/2019 [facility] [place] Acetaminophen < 15 g/mL 7 Alcohol < 10 mg/dL Normal <10 Salicylate < 2.50 mg/dL <30 TSH (Thyroid Stim Horm) 6.31 mcIU/mL High 0.34-5.60 Urinalysis Profile 04/07/2019 [facility] [place] Urine Color Yellow Urine Appearance Clear Urine Specific [place] 1.018 Normal 1.010-1.030 Urine pH 6.0 Normal 5-9 Urine Urobilinogen Negative Negative Urine Ketones Trace Abnormal Negative Urine Protein Negative Negative Urine Leukocytes Negative Negative Urine Blood Negative Negative Urine Nitrite Negative Negative Urine Bilirubin Negative Negative Urine Glucose Negative Negative Urine Drug SCR ED 04/07/2019 [facility] [place] Urine Amphetamine None Detected None Detect & Pain Clinic Screen Urine Barbiturates Screen None Detected None Detect Urine Benzodiazepine Screen Presumptive Posi <SEE NOTE> Abnormal None Detect 8 Urine Cannabinoids Screen None Detected None Detect Urine Cocaine Screen None Detected None Detect Urine Opiates Screen None Detected None Detect Urine Phencyclidine Screen None Detected None Detect 9 Laboratory test finding 04/07/2019 [facility] [place] < 0.10 mmol/L Low 0.6-1.2 Digoxin 1.2 ng/ml Normal 0.8-2.0 Osmolality Serum 256 mOsm/kg Low 275-295 Comprehensive Metabolic 03/06/2019 [facility]) Sodium 132 mEq/L Low 134-149 10 Prof Potassium 4.9 mEq/L 3.6-5.5 Chloride 98 [...] >60 ml/min/1.73m^ >=60 CBC Electronic Fma 03/06/2019 [facility]) WBC 6.0 x10^3/UL 4.0- 10.0 RBC 4.12 x10^6/UL 3.93-6.00 HGB 13.0 g/dL 12.0-17.0 HCT 38 % 35-50 MCV 92.7 fL 80.0-95.0 MCH 31.6 pg 25.6-32.2 MCHC 34.0 g/dL 32.2-36.0 RDW-CV 14.8 % High 11.6-14.4 PLT 230 x10^3/UL 163-400 MPV 10.7 fL 9.4-12.4 Garret# 3.99 x10^3/UL 1.56-6.13 Lymph# 1.24 x10^3/UL 1.18-3.74 Powell# 0.61 x10^3/UL 0.24-0.82 Eos # 0.1 x10^3/UL 0.0-0.5 Baso # 0.04 x10^3/UL 0.01-0.08 Garret% 66.1 % 34.0-70.0 Lymph % 20.5 % 20.0-52.0 Powell% 10.1 % 5.0-12.0 Eos% 2.3 % 0.7-7.0 Baso% 0.7 % 0.1-1.2 Laboratory 03/06/2019 [facility] Valproic Acid 33 ug/mL Low 50-100 11, 12 test finding [address] [facility] (Depakote)(R),[place] [address] (607)- - Levetiracetam (Keppra), S 30.3 ug/mL 10.0-40.0 13 Laboratory test 03/04/2019 [facility] Levetiracetam (Keppra) 35.9 g/mL 14 finding Comp Metabolic Panel 03/04/2019 [facility] Sodium 132 mmol/L Low 135-145 Potassium 3.9 [...] Egfr Non- 101.7 >60 Egfr 123.1 >60 15 Laboratory test 03/04/2019 [facility] [place] Ammonia 31 mcmol/L Normal 16-53 finding CBC Auto Diff 03/04/2019 [facility] [place] White Blood Count 7.1 10^3/uL Normal 3.5- [...] % Nucleated Red Blood Cells % 0.0 CBC Auto Diff 03/01/2019 [facility] [place] White Blood Count 5.3 [...] Cells % 0.0 Comp Metabolic Panel 03/01/2019 [facility] [place] Sodium 128 mmol/L Low [...] Egfr Non- 51.9 >60 Egfr 62.8 >60 16 Laboratory test finding 03/01/2019 [facility] Acetaminophen < 15 g/mL 17 Alcohol < 10 mg/dL Normal <10 Levetiracetam (Keppra) 60.3 g/mL Abnormal 18 Comprehensive Metabolic 02/27/2019 [facility]) Sodium 134 [...] >=60 GFR >60 ml/min/1.73m^ >=60 CBC Electronic (Fma New) 02/27/2019 [facility] WBC 5.62 4.0-10.0 (607)- - RBC [...] 02/27/2019 [facility] Ammonia, Plasma 58 g/dL 27-102 19 finding [address] [place] [address] (267)- - Urinalysis Profile 02/18/2019 [facility] [place] Urine Color [place]ess[place] Urine Appearance Clear Urine Specific [place] 1.017 Normal 1.010-1.030 Urine pH 7.0 Normal 5-9 Urine Urobilinogen Positive Abnormal Negative Urine Ketones Trace Abnormal Negative Urine Protein Negative Negative Urine Leukocytes Negative Negative Urine Blood Negative Negative Urine Nitrite Negative Negative Urine Bilirubin Negative Negative Urine Glucose Negative Negative Laboratory test finding 02/18/2019 [facility] [place] [place] Magnesium 1.5 mg/dL Low 1.9-2.7 Creatine Kinase(CK) 60 U/L Normal 10-223 C Reactive Protein 72.96 mg/L High <8.01 Alcohol < 10 mg/dL Normal <10 Comp Metabolic Panel 02/18/2019 [facility] [place] Sodium 130 mmol/L Low [...] Egfr Non- 93.3 >60 Egfr 112.9 >60 20 Laboratory test finding 02/18/2019 [facility] [place] Troponin I 0.01 ng/mL <0.04 21 Inr/Protime 02/18/2019 [facility] [place] [place] Inr 1.20 High 0.82-1.09 22 Laboratory test finding 02/18/2019 [facility] [place] Ammonia 69 mcmol/L High 16-53 Lactic Acid 0.8 mmol/L Normal 0.5-2.0 23 CBC Auto Diff 02/18/2019 [facility] [place] White Blood Count 5.6 [...] % 0.0 Urine Drug SCR ED 02/18/2019 [facility] [place] Urine Amphetamine None Detected None Detect & Pain Clinic Screen Urine Barbiturates Screen None Detected None Detect Urine Benzodiazepine Screen Presumptive Posi <SEE NOTE> Abnormal None Detect 24 Urine Cannabinoids Screen Presumptive Posi <SEE NOTE> Abnormal None Detect 25 Urine Cocaine Screen None Detected None Detect Urine Opiates Screen None Detected None Detect Urine Phencyclidine Screen None Detected None Detect 26 Laboratory test 02/18/2019 [facility] [place] MRSA/S. aureus SEE RESULT 27 finding Ssti PCR BELOW Wound Culture/Sensi 02/18/2019 [facility] [place] Wound/Misc SEE RESULT 28 Culture-Gram BELOW Stain Laboratory test 01/19/2019 [facility] [place] Digoxin 1.3 ng/ml Normal 0.8-2.0 finding Valproic Acid (Depakene) 92.0 g/mL Normal 50-100 Alcohol < 10 mg/dL Normal <10 Comp Metabolic Panel 01/19/2019 [facility] [place] Sodium 129 mmol/L Low [...] Egfr Non- 57.8 >60 Egfr 69.9 >60 29 Laboratory test 01/19/2019 [facility] [place] [place] Partial Thrombo 31.5 seconds Normal 26.0- 38.0 finding Time PTT Inr/Protime 01/19/2019 [facility] [place] [place] Inr 1.08 Normal 0.82-1.09 30 Type & Screen 01/19/2019 [facility] [place] Patient Blood AB Negative Type Antibody Screen NEGATIVE CBC Auto Diff 01/19/2019 [facility] [place] White Blood Count 4.0 10^3/uL Normal 3.5- [...] mEq/L 21-32 Glucose 157 mg/dL High 70-105 31 BUN 7 mg/dL 6-26 Creatinine 0.8 mg/dL [...] 01/13/2019 [facility] Valproic Acid 87 ug/mL 50-100 32, 33 test finding [address] [facility] (Depakote)(R),[place] [address] (536)- - CBC Electronic 01/13/2019 [facility] WBC 5.28 4.0-10.0 (Fma New) (607)- - [...] Basophil% 0.4 % 0-1.2 Laboratory test 12/18/2018 [facility] [place] Digoxin 0.6 ng/ml Low 0.8-2.0 finding Urine Drug SCR ED 12/18/2018 [facility] [place] Urine Amphetamine None Detected None Detect & Pain Clinic Screen Urine Barbiturates Screen None Detected None Detect Urine Benzodiazepine Screen None Detected None Detect Urine Cannabinoids Screen None Detected None Detect Urine Cocaine Screen None Detected None Detect Urine Opiates Screen None Detected None Detect Urine Phencyclidine Screen None Detected None Detect 34 Urinalysis Profile 12/18/2018 [facility] [place] Urine Color Yellow Urine Appearance Cloudy Urine Specific [place] 1.006 Low 1.010-1.030 Urine pH 7.0 Normal 5-9 Urine Urobilinogen Negative Negative Urine Ketones Negative Negative Urine Protein Negative Negative Urine Leukocytes Negative Negative Urine Blood Negative Negative Urine Nitrite Negative Negative Urine Bilirubin Negative Negative Urine Glucose Negative Negative Laboratory test finding 12/18/2018 [facility] [place] Acetaminophen < 15 g/mL 35 Alcohol 67 mg/dL High <10 Salicylate < 2.50 mg/dL <30 TSH (Thyroid Stim Horm) 4.04 mcIU/mL Normal 0.34-5.60 Comp Metabolic Panel 12/18/2018 [facility] Sodium 129 mmol/L Low 135-145 Potassium 4.0 [...] Egfr Non- 78.2 >60 Egfr 94.6 >60 36 CBC Auto Diff 12/18/2018 [facility] [place] White Blood Count 5.3 [...] Cells % 0.1 Laboratory test finding 12/18/2018 [facility] [place] Ammonia 50 mcmol/L Normal 16-53 B-Type Natriuretic Peptide BNP 248 pg/mL High <=100 Laboratory 12/16/2018 [facility] Valproic Acid 44 ug/mL Low 50-100 37, 38 test finding [address] [facility] (Depakote)(R),[place] [address] (607)- - Levetiracetam (Keppra), S 53.5 ug/mL High 10.0-40.0 39 Inr/Protime 11/24/2018 [facility] [place] Inr 1.11 High 0.82-1.09 40 Laboratory test 11/24/2018 [facility] [place] D Dimer 932 ng/mL High Less Than 230 41 finding Quantitative Arterial Blood Gas 11/24/2018 [facility] [place] PH Arterial 7.41 Normal 7.35-7.45 Pco2 Arterial 36 mmHg Normal 35-45 Po2 Arterial 89 mmHg Normal 80-100 O2 Saturation Arterial 98.3 % High 94.0-98.0 Base Excess Arterial -1.4 mmol/L Normal -2.0-2.0 42 Hco3 Arterial 23.7 mmol/L Normal 19-31 Laboratory test 11/24/2018 [facility] [place] Lactic Acid 0.8 mmol/L Normal 0.5-2.0 43 finding CBC Auto Diff 11/24/2018 [facility] [place] White Blood Count 6.6 [...] Blood Cells % 0.1 Laboratory test 11/24/2018 [facility] [place] [place] B-Type Natriuretic 501 pg/mL High <=100 finding Peptide BNP Sputum Culture & 11/24/2018 [facility] [place] Sputum Culture SEE RESULT 44 Sensitiv Gram Stain BELOW Comp Metabolic 11/24/2018 [facility] [place] [place] Sodium 124 mmol/L Low 135-145 Panel Potassium 4.3 mmol/L Normal 3.5-5.0 Chloride 92 [...] Egfr Non- 91.0 >60 Egfr 110.2 >60 45 Laboratory test finding 11/24/2018 [facility] [place] [place] C Reactive Protein 32.52 mg/L High <8.01 Troponin I 0.01 ng/mL <0.04 46 Valproic Acid (Depakene) 35.0 g/mL Low 50-100 Alcohol < 10 mg/dL Normal <10 Blood Culture SEE RESULT BELOW 47 Laboratory test 11/04/2018 [facility] Digoxin, Serum 0.8 ng/mL 0.5-0.9 48 , 49 finding [address] [place] [address] (192)- - 1 RESULTS VERIFIED BY REPEAT ANALYSIS 2 Because ethnic data is not always readily [...] 15-29 5 Kidney failure <15 (or dialysis) 3 Troponin-I testing on Plasma Separator Tubes (PST) has a known false positive rate of 0.20-0.40%. All positive troponins reflex immediately to secondary confirmatory testing. Using the [employer] DxI 800 Access Immunoassay systems, the 99th percentile upper reference limit was demonstrated to be < 0.03 ng/mL. 4 [facility] Severe Sepsis and Septic Shock Management [...] 5 Kidney failure <15 (or dialysis) 6 Critical Result NA:119 Called to DEXTER at: 14:03:53 by:[id number] Read back by:[email or web address] 7 Therapeutic concentration: <50 ug/mL Toxic concentration: >120 ug/mL 8 Presumptive Positive Presumptive positive results are unconfirmed. 9 The urine specimen was tested at the listed cutoffs: Drug class test level (ng/mL) Amphetamines 500 Barbiturates 200 Benzodiazepine metabolites 200 Cocaine metabolites 150 Cannabinoids 50 Opiates 300 Pcp 25 Specimen was received without chain of custody. Results should be used for medical purposes only. 10 RESULTS VERIFIED BY REPEAT ANALYSIS 11 1 serum pour off from red top tube 12 Detection Limit = 4 <4 indicates None Detected Toxicity may occur at levels of 100-500. Measurements of free unbound valproic acid may improve the assess- ment of clinical response. 13 This test was developed and its performance characteristics determined by [employer]. It has not been cleared or approved by the Food and Drug Administration. 14 REFERENCE VALUE 12.0 - 46.0 ADDITIONAL INFORMATION This test was developed and its performance characteristics determined by [facility] in a manner consistent with CLIA requirements. This test has not been cleared or approved by the U.S. Food and Drug Administration. Test Performed by: [place] [id number] [place] [address] 15 Because ethnic data is not always [...] 5 Kidney failure <15 (or dialysis) 16 Because ethnic data is not always readily [...] 15-29 5 Kidney failure <15 (or dialysis) 17 Therapeutic concentration: <50 ug/mL Toxic concentration: >120 ug/mL 18 REFERENCE VALUE 12.0 - 46.0 ADDITIONAL INFORMATION This test was developed and its performance characteristics determined by [facility] in a manner consistent with CLIA requirements. This test has not been cleared or approved by the U.S. Food and Drug Administration. Test Performed by: [facility] [address] [place] [address] 19 FROZEN 20 Because ethnic data is not always [...] 5 Kidney failure <15 (or dialysis) 21 Troponin-I testing on Plasma Separator Tubes (PST) has a known false positive rate of 0.20-0.40%. All positive troponins reflex immediately to secondary confirmatory testing. Using the [employer] DxI 800 Access Immunoassay systems, the 99th percentile upper reference limit was demonstrated to be < 0.03 ng/mL. 22 Standard intensity warfarin therapeutic range: 2.0-3.0 High intensity warfarin therapeutic range: 2.5-3.5 23 [facility] Severe Sepsis and Septic Shock Management Bundle Measure requires all lactic acids initially measuring >2.0 mmol/L be repeated. 24 Presumptive Positive Presumptive positive results are unconfirmed. 25 Presumptive Positive Presumptive positive results are unconfirmed. 26 The urine specimen was tested at the listed cutoffs: Drug class test level (ng/mL) Amphetamines 500 Barbiturates 200 Benzodiazepine metabolites 200 Cocaine metabolites 150 Cannabinoids 50 Opiates 300 Pcp 25 Specimen was received without chain of custody. Results should be used for medical purposes only. 27 SEE RESULT BELOW Name: GILDA CORTEZ : [address]: William Bangura MD Acct: [id number] Unit: [id number] AGE: 64 Location: [place] [address] Re02/18/19 SEX: M Status: ADM IN SPEC: [id number] SIENA: 02/18/19-[address] [facility] [address]: Shruti CHAU REQ: [id number] RECD: 02/18/19 STATUS: MICHAEL BROWN DR: Anahi Lewis MD _ SOURCE: FOOT,RIGHT [...] . END OF REPORT DEPARTMENT OF PATHOLOGY, [address] [place] [address] Alirio Hawkins M.D. Director [facility] # [id number] 28 SEE RESULT BELOW Name: GILDA CORTEZ Araceli : [address]: Aurora Fitzgerald DO Acct: [id number] Unit: [id number] AGE: 64 Location: [place] [address] Re02/18/19 SEX: M Status: ADM IN SPEC: [id number] SIENA: 02/18/[address] [facility] [address]: Shruti CHAU REQ: [id number] RECD: 02/18/19 STATUS: RES KEVIN DR: Anahi Lewis MD _ SOURCE: WOUND SPDESC:OTHER ORDERED: Culture Stain COMMENTS: R FOOT ULCER QUERIES: Specimen Description R FOOT ULCER Procedure Result Reported Site Wound/Misc Gram Stain Final 02/18/19- 1618 ML 1+ Epithelial Cells 2+ Neutrophils 1+ Gram Positive Cocci Wound/Misc Culture PENDING * ML - Main Lab . END OF REPORT DEPARTMENT OF PATHOLOGY, [address] [place] [address] Alirio Hawkins M.D. Director [facility] # [id number] 29 Because ethnic data is not always readily [...] 15-29 5 Kidney failure <15 (or dialysis) 30 Standard intensity warfarin therapeutic range: 2.0-3.0 High intensity warfarin therapeutic range: 2.5-3.5 31 NON-FASTING 32 1 serum pour off from red top tube 33 Detection Limit = 4 <4 indicates None Detected Toxicity may occur at levels of 100-500. Measurements of free unbound valproic acid may improve the assess- ment of clinical response. 34 The urine specimen was tested at the listed cutoffs: Drug class test level (ng/mL) Amphetamines 500 Barbiturates 200 Benzodiazepine metabolites 200 Cocaine metabolites 150 Cannabinoids 50 Opiates 300 Pcp 25 Specimen was received without chain of custody. Results should be used for medical purposes only. 35 Therapeutic concentration: <50 ug/mL Toxic concentration: >120 ug/mL 36 Because ethnic data is not always readily [...] 15-29 5 Kidney failure <15 (or dialysis) 37 2 serum pour offs from red top tubes 38 Detection Limit = 4 <4 indicates None Detected Toxicity may occur at levels of 100-500. Measurements of free unbound valproic acid may improve the assess- ment of clinical response. 39 This test was developed and its performance characteristics determined by [employer]. It has not been cleared or approved by the Food and Drug Administration. 40 Standard intensity warfarin therapeutic range: 2.0-3.0 High intensity warfarin therapeutic range: 2.5-3.5 41 Please note: The following may produce a false positive D Dimer test: - Rheumatoid factor greater than 60 IU/ml - Plasma hemoglobin greater than 0.05 gm/dl - Bilirubin greater than 50 mg/dl - Lipids greater than 1000 mg/dl - FDP greater than 20 ug/ml 42 Reference ranges based on room air. 43 [facility] Severe Sepsis and Septic Shock Management Bundle Measure requires all lactic acids initially measuring >2.0 mmol/L be repeated. 44 SEE RESULT BELOW Name: GILDA CORTEZ : [address]: William Bangura MD Acct: [id number] Unit: [id number] AGE: 63 Location: [place] [address] Re11/24/18 SEX: M Status: ADM IN SPEC: [id number] SIENA: 11/24/[address]: Aung Alexander MD REQ: [id number] RECD: 11/24/18 STATUS: RES ALFREDA DR: Louie Lewis MD _ SOURCE: SPUTUM,EXP SPDESC: ORDERED: Sputum Cult/GS Procedure Result Reported Site Sputum Smear Final 11/24/18- 1005 ML 2+ Neutrophils 2+ Nucleated Cells 1+ Epithelial Cells Mixed Morphotypes, resembling Normal [facility] Sputum Culture Preliminary 11/26/18- 1325 ML Organism 1 ENTEROBACTER SPECIES Quantity 1+ * ML - Main Lab . END OF REPORT DEPARTMENT OF PATHOLOGY, [address] [place] [address] Alirio Hawkins M.D. Director [facility] # [id number] 45 Because ethnic data is not always [...] immediately to secondary confirmatory testing. Using the [employer] DxI 800 Access Immunoassay systems, the 99th percentile upper reference limit was demonstrated to be < 0.03 ng/mL. 47 SEE RESULT BELOW Name: GILDA CORTEZ : [address]: William Bangura MD Acct: [id number] Unit: [id number] AGE: 63 Location: [place] [address] Re11/24/18 Dis: 11/27/18 SEX: M Status: DIS IN SPEC: [id number] SIENA: 11/24/[address] [facility] [address]: Aung Alexander MD REQ: [id number] RECD: 11/24/18 STATUS: MICHAEL GANT DR: Louie Lewis MD _ SOURCE: BLOOD,VENO SPDESC: ORDERED: Blood Cult Procedure Result Reported Site Aerobic Culture Bottle Final 11/29/18- 0857 ML No Growth Day 5 Anaerobic Culture Bottle Final 11/29/18- 0855 ML No Growth Day 5 * ML - Main Lab . END OF REPORT DEPARTMENT OF PATHOLOGY, [address] [place] [address] Alirio Hawkins M.D. Director [facility] # [id number] 48 1 serum pour off from red top tube 49 Concentrations above 2.0 ng/mL are generally considered toxic. Some overlap of toxic and non-toxic values have been reported. Detection Limit = 0.4 ng/mL Therapeutic range is derived from 2013 ACCF/AHA Guidelines for the Management of Heart Failure. Procedures Date Code Description Status 03/26/2017 [id number] Colonoscopy Completed 03/19/2017 [id number] Colonoscopy Completed Medical Devices Description No Information Available Encounters Type Date Location Provider Dx Diagnosis Office Visit 04/17/2019 Main Office Louie Schafer F33.9 Major depressive 11:20a MD Debbie disorder, recurrent, unspecified G47.00 Insomnia, unspecified E87.1 Hypo-osmolality and hyponatremia Office Visit 03/21/2019 4:00p Main Office Louie Schafer S82.51xD Disp fx of sophy Lewis MD malleolus of r tibia, 7thD Office Visit 03/07/2019 11:20a Main Office Louie Schafer S82.51xD Disp fx of sophy Lewis MD malleolus of r tibia, 7thD G40.909 Epilepsy, [...] anxiety disorder I25.10 Athscl heart disease of [place] coronary artery w/o ang pctrs G40.909 Epilepsy, [...] slip/trip w strike agnst oth object, init Assessments Date Code Description Provider 04/30/2019 F33.9 Major depressive disorder, recurrent, Louie Lewis MD unspecified 04/30/2019 G47.00 Insomnia, unspecified Louie Lewis MD 04/30/2019 S82.51xD Displaced fracture of medial malleolus Louie Lewis MD of right tibia, subsequent encounter for closed fracture with routine healing 04/30/2019 F10.20 Alcohol dependence, uncomplicated Louie Lewis MD 04/17/2019 F33.9 Major depressive disorder, recurrent, Louie Lewis MD unspecified 04/17/2019 G47.00 Insomnia, unspecified Louie Lewis MD 04/17/2019 E87.1 Hypo-osmolality and hyponatremia Louie Lewis MD 03/21/2019 S82.51xD Displaced fracture of medial malleolus [...] Barboza 02/27/2019 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 [...] fibula and medial melleolus. LT [address] [place] [address] [phone] [facility] [place] [facility] EVALUATE AND TREAT FOR PAIN MANAGEMENT Patient Declined [facility] [address] [phone]
--- OUTSIDE RECORDS SUMMARY | 2019-05-06 06:01 | XMS REPORT | Continuity of Care Document ---
:1955 External Reference #:[id number] Author Name Louie Lewis MD Address [address] [place] [address] Care Team Providers Name Role Phone Rosales Reich MD - Cardiovascular Care Team Information Ware Dresser Disease Juan Luis Joseph MD - Surgery Care Team Information Ware Dresser [phone] Kristen Adams - Vascular Surgery Care Team Information Ware Dresser [phone] [facility] Emergency Room - Emergency Care Care Team Information Ware Dresser [phone] Visiting Nurse Services - Home Health Care Team Information Ware Dresser Louie Lewis MD - Family Care Team Information Ware Dresser Medicine Nasreen Servin - Pulmonary Disease Care Team Information Ware Dresser [phone] Alexandria Barksdale ([facility]) - Care Team Information Ware Dresser [phone] Surgery of the Hand [facility] Pain Clinic - Interventional Pain Care Team Information Ware Dresser Luis Antonio Robison MD - Neurology Care Team Information Ware Dresser Problems Active Problems Provider Date Peripheral vascular [...] M.D. Onset: 10/26/2016 Atherosclerotic heart disease of [place] coronary Kellee Bangura M.D. Onset: artery without [...] Tablets pain Belsomra one by mouth 30tabs Louie Schafer 03/20/2019 20mg Tablets nightly prn. MD Debbie (bottle, please) Oxycodone-Acetaminophe take one by 120tabs Louie Schafer [...] Medications Hydrocodone-Acetaminophen 1 by mouth 21tabs Karena Roemo 01/01/2019 - 5-325mg Tablets every 8 hours [...] CPT Code Status Date Vaccine Lot # [id number] Given 04/05/2018 Pneumococcal Immunization [id number] Given 04/05/2018 Influenza Vac, Quadrivalent, Slit Virus, Im [id number] Given 05/18/2016 Influenza Vac, Quadrivalent, Slit Virus, Im [id number] Given 05/31/2015 Influenza Vac, Quadrivalent, Slit Virus, Im [id number] Given 05/05/2014 Pneumococcal Conjugate Vacc-[id number] Given 03/25/2012 DO Not Use Split Influenza Virus Vaccine Vital Signs Date Vital Result Comment 04/17/2019 11:09am BP Systolic 118 mmHg BP Diastolic 64 mmHg Heart Rate 96 /min Body Temperature 97.5 F Respiratory Rate 17 /min Weight 156.00 lb 04/07/2019 1:09pm BP Systolic 98 mmHg BP Diastolic 74 mmHg Heart Rate 80 /min Body Temperature 97.9 F Respiratory Rate 20 /min Results Test Date Facility Test Result H/L Range Note CBC Auto Diff 04/11/2019 [facility] White Blood Count 5.0 10^3/uL Normal 3.5- [...] Cells % 0.1 Comp Metabolic Panel 04/11/2019 [facility] Sodium 127 mmol/L Low 135-145 Potassium 4.4 [...] Egfr Non- 109.9 >60 Egfr 133.0 >60 1 Laboratory test finding 04/11/2019 [facility] Troponin I 0.01 ng/mL <0.04 2 Lactic Acid 1.0 mmol/L Normal 0.5-2.0 3 Laboratory test 04/11/2019 [facility] Alcohol 32 mg/dL High <10 finding CBC Auto Diff 04/07/2019 [facility] White Blood Count 9.3 10^3/uL Normal 3.5- [...] Cells % 0.0 Comp Metabolic Panel 04/07/2019 [facility] Potassium 4.2 mmol/L Normal 3.5-5.0 Chloride 86 [...] Egfr Non- 95.9 >60 Egfr 116.1 >60 4 Sodium 119 mmol/L Critical low 135-145 5 Anion Gap 9 mmol/L Normal 2-11 Laboratory test finding 04/07/2019 [facility] Acetaminophen < 15 g/mL 6 Alcohol < 10 mg/dL Normal <10 Salicylate < 2.50 mg/dL <30 TSH (Thyroid Stim Horm) 6.31 mcIU/mL High 0.34-5.60 Urinalysis Profile 04/07/2019 [facility] Urine Color Yellow Urine Appearance Clear Urine Specific [place] 1.018 Normal 1.010-1.030 Urine pH 6.0 Normal 5-9 Urine Urobilinogen Negative Negative Urine Ketones Trace Abnormal Negative Urine Protein Negative Negative Urine Leukocytes Negative Negative Urine Blood Negative Negative Urine Nitrite Negative Negative Urine Bilirubin Negative Negative Urine Glucose Negative Negative Urine Drug SCR ED 04/07/2019 [facility] Urine Amphetamine None Detected None Detect & Pain Clinic Screen Urine Barbiturates Screen None Detected None Detect Urine Benzodiazepine Screen Presumptive Posi <SEE NOTE> Abnormal None Detect 7 Urine Cannabinoids Screen None Detected None Detect Urine Cocaine Screen None Detected None Detect Urine Opiates Screen None Detected None Detect Urine Phencyclidine Screen None Detected None Detect 8 Laboratory test finding 04/07/2019 [facility] [place] < 0.10 mmol/L Low 0.6-1.2 Digoxin 1.2 ng/ml Normal 0.8-2.0 Osmolality Serum 256 mOsm/kg Low 275-295 Comprehensive Metabolic 03/06/2019 Diego Kannan(fma) Sodium 132 mEq/L Low 134-149 9 Prof [...] ml/min/1.73m^ >=60 CBC Electronic Fma 03/06/2019 Diego Kannan(fma) WBC 6.0 x10^3/UL 4.0- 10.0 RBC 4.12 x10^6/UL 3.93-6.00 HGB 13.0 g/dL 12.0-17.0 HCT 38 % 35-50 MCV 92.7 fL 80.0-95.0 MCH 31.6 pg 25.6-32.2 MCHC 34.0 g/dL 32.2-36.0 RDW-CV 14.8 % High 11.6-14.4 PLT 230 x10^3/UL 163-400 MPV 10.7 fL 9.4-12.4 Garret# 3.99 x10^3/UL 1.56-6.13 Lymph# 1.24 x10^3/UL 1.18-3.74 Lyman# 0.61 x10^3/UL 0.24-0.82 Eos # 0.1 x10^3/UL 0.0-0.5 Baso # 0.04 x10^3/UL 0.01-0.08 Garret% 66.1 % 34.0-70.0 Lymph % 20.5 % 20.0-52.0 Lyman% 10.1 % 5.0-12.0 Eos% 2.3 % 0.7-7.0 Baso% 0.7 % 0.1-1.2 Laboratory 03/06/2019 [facility] Valproic Acid 33 ug/mL Low 50-100 10, 11 test finding 14[address] [facility] (Depakote)(R),[place] [address] (607)- - Levetiracetam (Keppra), S 30.3 ug/mL 10.0-40.0 12 Laboratory test 03/04/2019 [facility] Levetiracetam (Keppra) 35.9 g/mL 13 finding Comp Metabolic Panel 03/04/2019 [facility] Sodium 132 mmol/L Low 135-145 Potassium 3.9 [...] Egfr Non- 101.7 >60 Egfr 123.1 >60 14 Laboratory test 03/04/2019 [facility] Ammonia 31 mcmol/L Normal 16-53 finding CBC Auto Diff 03/04/2019 [facility] White Blood Count 7.1 10^3/uL Normal 3.5- [...] Cells % 0.0 CBC Auto Diff 03/01/2019 [facility] White Blood Count 5.3 10^3/uL Normal 3.5- [...] Egfr Non- 51.9 >60 Egfr 62.8 >60 15 Laboratory test finding 03/01/2019 [facility] Acetaminophen < 15 g/mL 16 Alcohol < 10 mg/dL Normal <10 Levetiracetam (Keppra) 60.3 g/mL Abnormal 17 Comprehensive Metabolic 02/27/2019 Cortez Kannan(fma) Sodium 134 [...] ml/min/1.73m^ >=60 CBC Electronic (a New) 02/27/2019 [facility] WBC 5.62 4.0-10.0 (607)- - RBC 4.48 [...] 02/27/2019 [facility] Ammonia, Plasma 58 g/dL 27-102 18 finding [address] [place] [address] (607)- - Urinalysis Profile 02/18/2019 [facility] Urine Color Yessica Urine Appearance Clear Urine Specific [place] 1.017 Normal 1.010-1.030 Urine pH 7.0 Normal 5-9 Urine Urobilinogen Positive Abnormal Negative Urine Ketones Trace Abnormal Negative Urine Protein Negative Negative Urine Leukocytes Negative Negative Urine Blood Negative Negative Urine Nitrite Negative Negative Urine Bilirubin Negative Negative Urine Glucose Negative Negative Laboratory test finding 02/18/2019 [facility] Magnesium 1.5 mg/dL Low 1.9-2.7 Creatine Kinase(CK) 60 U/L Normal 10-223 C Reactive Protein 72.96 mg/L High <8.01 Alcohol < 10 mg/dL Normal <10 Comp Metabolic Panel 02/18/2019 [facility] Sodium 130 mmol/L Low 135-145 Potassium 3.6 [...] Egfr Non- 93.3 >60 Egfr 112.9 >60 19 Laboratory test finding 02/18/2019 [facility] Troponin I 0.01 ng/mL <0.04 20 Inr/Protime 02/18/2019 [facility] Inr 1.20 High 0.82-1.09 21 Laboratory test finding 02/18/2019 [facility] Ammonia 69 mcmol/L High 16-53 Lactic Acid 0.8 mmol/L Normal 0.5-2.0 22 CBC Auto Diff 02/18/2019 [facility] White Blood Count 5.6 10^3/uL Normal 3.5- [...] % 0.0 Urine Drug SCR ED 02/18/2019 [facility] Urine Amphetamine None Detected None Detect & Pain Clinic Screen Urine Barbiturates Screen None Detected None Detect Urine Benzodiazepine Screen Presumptive Posi <SEE NOTE> Abnormal None Detect 23 Urine Cannabinoids Screen Presumptive Posi <SEE NOTE> Abnormal None Detect 24 Urine Cocaine Screen None Detected None Detect Urine Opiates Screen None Detected None Detect Urine Phencyclidine Screen None Detected None Detect 25 Laboratory test 02/18/2019 [facility] MRSA/S. aureus SEE RESULT 26 finding Ssti PCR BELOW Wound Culture/Sensi 02/18/2019 [facility] Wound/Misc SEE RESULT 27 Culture-Gram BELOW Stain Laboratory test 01/19/2019 [facility] Digoxin 1.3 ng/ml Normal 0.8-2.0 finding Valproic Acid (Depakene) 92.0 g/mL Normal 50-100 Alcohol < 10 mg/dL Normal <10 Comp Metabolic Panel 01/19/2019 [facility] Sodium 129 mmol/L Low 135-145 Potassium 4.1 [...] Egfr Non- 57.8 >60 Egfr 69.9 >60 28 Laboratory test 01/19/2019 [facility] Partial Thrombo 31.5 seconds Normal 26.0- 38.0 finding Time PTT Inr/Protime 01/19/2019 [facility] Inr 1.08 Normal 0.82-1.09 29 Type & Screen 01/19/2019 [facility] Patient Blood AB Negative Type Antibody Screen NEGATIVE CBC Auto Diff 01/19/2019 [facility] White Blood Count 4.0 10^3/uL Normal 3.5- [...] Cells % 0.1 Comprehensive Metabolic 01/13/2019 [facility] Kannan(a) Sodium 134 mEq/L 134-149 Prof Potassium 4.8 mEq/L 3.6-5.5 Chloride 98 mEq/L 94-112 Carbon Dioxide 27 mEq/L 21-32 Glucose 157 mg/dL High 70-105 30 BUN 7 mg/dL 6-26 Creatinine 0.8 mg/dL [...] 01/13/2019 [facility] Valproic Acid 87 ug/mL 50-100 31, 32 test finding 1447 [facility] (Depakote)(R),[place] [address] (607)- - CBC Electronic 01/13/2019 [facility] WBC 5.28 4.0-10.0 (a New) (607)- - RBC 4.25 3.93-6.0 Hemoglobin [...] Basophil% 0.4 % 0-1.2 Laboratory test 12/18/2018 [facility] Digoxin 0.6 ng/ml Low 0.8-2.0 finding Urine Drug SCR ED 12/18/2018 [facility] Urine Amphetamine None Detected None Detect & Pain Clinic Screen Urine Barbiturates Screen None Detected None Detect Urine Benzodiazepine Screen None Detected None Detect Urine Cannabinoids Screen None Detected None Detect Urine Cocaine Screen None Detected None Detect Urine Opiates Screen None Detected None Detect Urine Phencyclidine Screen None Detected None Detect 33 Urinalysis Profile 12/18/2018 [facility] Urine Color Yellow Urine Appearance Cloudy Urine Specific [place] 1.006 Low 1.010-1.030 Urine pH 7.0 Normal 5-9 Urine Urobilinogen Negative Negative Urine Ketones Negative Negative Urine Protein Negative Negative Urine Leukocytes Negative Negative Urine Blood Negative Negative Urine Nitrite Negative Negative Urine Bilirubin Negative Negative Urine Glucose Negative Negative Laboratory test finding 12/18/2018 [facility] Acetaminophen < 15 g/mL 34 Alcohol 67 mg/dL High <10 Salicylate < 2.50 mg/dL <30 TSH (Thyroid Stim Horm) 4.04 mcIU/mL Normal 0.34-5.60 Comp Metabolic Panel 12/18/2018 [facility] Sodium 129 mmol/L Low 135-145 Potassium 4.0 [...] Egfr Non- 78.2 >60 Egfr 94.6 >60 35 CBC Auto Diff 12/18/2018 [facility] White Blood Count 5.3 10^3/uL Normal 3.5- [...] Cells % 0.1 Laboratory test finding 12/18/2018 [facility] Ammonia 50 mcmol/L Normal 16-53 B-Type Natriuretic Peptide BNP 248 pg/mL High <=100 Laboratory 12/16/2018 [facility] Valproic Acid 44 ug/mL Low 50-100 36, 37 test finding 1447 [facility] (Depakote)(R),[place] [address] (600)- - Levetiracetam (Keppra), S 53.5 ug/mL High 10.0-40.0 38 Laboratory test finding 11/24/2018 [facility] C Reactive Protein 32.52 mg/L High <8.01 Troponin I 0.01 ng/mL <0.04 39 Valproic Acid (Depakene) 35.0 g/mL Low 50-100 Alcohol < 10 mg/dL Normal <10 Blood Culture SEE RESULT BELOW 40 Comp Metabolic Panel 11/24/2018 [facility] Sodium 124 mmol/L Low 135-145 Potassium 4.3 [...] Egfr Non- 91.0 >60 Egfr 110.2 >60 41 Sputum Culture & 11/24/2018 [facility] Sputum Culture SEE RESULT 42 Sensitiv Gram Stain BELOW Laboratory test 11/24/2018 [facility] B-Type Natriuretic 501 pg/mL High <=100 finding Peptide BNP CBC Auto Diff 11/24/2018 [facility] White Blood Count 6.6 10^3/uL Normal 3.5- [...] Cells % 0.1 Laboratory test finding 11/24/2018 [facility] Lactic Acid 0.8 mmol/L Normal 0.5- 2.0 43 Arterial Blood Gas 11/24/2018 [facility] PH Arterial 7.41 Normal 7.35-7.45 Pco2 Arterial 36 mmHg Normal 35-45 Po2 Arterial 89 mmHg Normal 80-100 O2 Saturation Arterial 98.3 % High 94.0-98.0 Base Excess Arterial -1.4 mmol/L Normal -2.0-2.0 44 Hco3 Arterial 23.7 mmol/L Normal 19-31 Laboratory test 11/24/2018 [facility] D Dimer 932 ng/mL High Less 45 finding Quantitative Than 230 Inr/Protime 11/24/2018 [facility] Inr 1.11 High 0.82-1.0 46 9 Laboratory test 11/04/2018 [facility] Digoxin, Serum 0.8 ng/mL 0.5-0.9 47 , 48 finding [address] [place] [address] (801)- - Basic Metabolic 10/23/2018 [facility] Kannan(fma) Sodium 128 mEq/L Low 134- 149 49 Profile Potassium 4.7 mEq/L 3.6-5.5 Chloride 91 mEq/L Low 94-112 50 Carbon Dioxide 25 mEq/L 21-32 Glucose 108 mg/dL High 70-105 51 BUN 10 mg/dL 6-26 Creatinine 0.9 mg/dL 0.6-1.4 BUN/Creat Ratio 11.1 CALC 8.0-36.0 Calcium 9.2 mg/dL 8.6-10.2 GFR Non- >60 ml/min/1.73m^ >=60 GFR >60 ml/min/1.73m^ >=60 Laboratory test 10/23/2018 [facility] Kannan(fma) Magnesium, Serum 1.7 mEq/L 1.2-2.1 finding Laboratory test 10/23/2018 [facility] Digoxin, Serum 1.8 ng/mL High 0.5-0.9 52 finding [address] [place] [address] (508)- - 1 Because ethnic data is not [...] 5 Kidney failure <15 (or dialysis) 2 Troponin-I testing on Plasma Separator Tubes (PST) has a known false positive rate of 0.20-0.40%. All positive troponins reflex immediately to secondary confirmatory testing. Using the [employer] DxI 800 Access Immunoassay systems, the 99th percentile upper reference limit was demonstrated to be < 0.03 ng/mL. 3 [facility] Severe Sepsis and Septic Shock Management Bundle Measure requires all lactic acids initially measuring >2.0 mmol/L be repeated. 4 Because ethnic data is not always [...] 5 Kidney failure <15 (or dialysis) 5 Critical Result NA:[id number] Called to [id number] at: 14:03:53 by:[id number] Read back by:[email or web address] 6 Therapeutic concentration: <50 ug/mL Toxic concentration: >120 ug/mL 7 Presumptive Positive Presumptive positive results are unconfirmed. 8 The urine specimen was tested at the listed cutoffs: Drug class test level (ng/mL) Amphetamines 500 Barbiturates 200 Benzodiazepine metabolites 200 Cocaine metabolites 150 Cannabinoids 50 Opiates 300 Pcp 25 Specimen was received without chain of custody. Results should be used for medical purposes only. 9 RESULTS VERIFIED BY REPEAT ANALYSIS 10 1 serum pour off from red top tube 11 Detection Limit = 4 <4 indicates None Detected Toxicity may occur at levels of 100-500. Measurements of free unbound valproic acid may improve the assess- ment of clinical response. 12 This test was developed and its performance characteristics determined by [employer]. It has not been cleared or approved by the Food and Drug Administration. 13 REFERENCE VALUE 12.0 - 46.0 ADDITIONAL INFORMATION This test was developed and its performance characteristics determined by [facility] in a manner consistent with CLIA requirements. This test has not been cleared or approved by the U.S. Food and Drug Administration. Test Performed by: [facility] [address] [place] [address] 14 Because ethnic data is not always [...] 5 Kidney failure <15 (or dialysis) 16 Therapeutic concentration: <50 ug/mL Toxic concentration: >120 ug/mL 17 REFERENCE VALUE 12.0 - 46.0 ADDITIONAL INFORMATION This test was developed and its performance characteristics determined by [facility] in a manner consistent with CLIA requirements. This test has not been cleared or approved by the U.S. Food and Drug Administration. Test Performed by: [facility] [place] [address] [place] [address] 18 FROZEN 19 Because ethnic data is not always [...] 5 Kidney failure <15 (or dialysis) 20 Troponin-I testing on Plasma Separator Tubes (PST) has a known false positive rate of 0.20-0.40%. All positive troponins reflex immediately to secondary confirmatory testing. Using the Zim[employer] DxI 800 Access Immunoassay systems, the 99th percentile upper reference limit was demonstrated to be < 0.03 ng/mL. 21 Standard intensity warfarin therapeutic range: 2.0-3.0 High intensity warfarin therapeutic range: 2.5-3.5 22 [facility] Severe Sepsis and Septic Shock Management Bundle Measure requires all lactic acids initially measuring >2.0 mmol/L be repeated. 23 Presumptive Positive Presumptive positive results are unconfirmed. 24 Presumptive Positive Presumptive positive results are unconfirmed. 25 The urine specimen was tested at the listed cutoffs: Drug class test level (ng/mL) Amphetamines 500 Barbiturates 200 Benzodiazepine metabolites 200 Cocaine metabolites 150 Cannabinoids 50 Opiates 300 Pcp 25 Specimen was received without chain of custody. Results should be used for medical purposes only. 26 SEE RESULT BELOW Name: GILDA CORTEZ Araceli : [address]: William Bangura MD Acct: [id number] Unit: [id number] AGE: 64 Location: [place] [address] Re02/18/19 SEX: M Status: ADM IN SPEC: [id number] SIENA: 02/18/19-[address] [place]: Shruti CHAU REQ: [id number] RECD: 02/18/19 STATUS: MICHAEL GANT DR: Anahi [...] 1+ ACINETOBACTER HAEMOLYTICUS - SIGNIFICANCE QUESTIONED. * - [facility] . END OF REPORT DEPARTMENT OF PATHOLOGY, [address] [place] [address] Alirio Hawkins M.D. Director JOSHUA # [id number] 27 SEE RESULT BELOW Name: GILDA CORTEZ : [address]: Aurora Fitzgerald DO Acct: [id number] Unit: [id number] AGE: 64 Location: [place] [address]- Re02/18/19 SEX: M Status: ADM IN SPEC: [id number] SIENA: 02/18/[address]: Shruti CHAU REQ: [id number] RECD: 02/18/19 STATUS: RES [facility] DR: Anahi Lewis MD _ SOURCE: WOUND SPDESC:OTHER ORDERED: Culture Stain COMMENTS: R FOOT ULCER QUERIES: Specimen Description R FOOT ULCER Procedure Result Reported Site Wound/Misc Gram Stain Final 02/18/19- 1618 ML 1+ Epithelial Cells 2+ Neutrophils 1+ Gram Positive Cocci Wound/Misc Culture PENDING * ML - Main Lab . END OF REPORT DEPARTMENT OF PATHOLOGY, [address] [place] [address] Alirio Hawkins M.D. Director [facility] # [id number] 28 Because ethnic data is not always readily [...] 15-29 5 Kidney failure <15 (or dialysis) 29 Standard intensity warfarin therapeutic range: 2.0-3.0 High intensity warfarin therapeutic range: 2.5-3.5 30 NON-FASTING 31 1 serum pour off from red top tube 32 Detection Limit = 4 <4 indicates None Detected Toxicity may occur at levels of 100-500. Measurements of free unbound valproic acid may improve the assess- ment of clinical response. 33 The urine specimen was tested at the listed cutoffs: Drug class test level (ng/mL) Amphetamines 500 Barbiturates 200 Benzodiazepine metabolites 200 Cocaine metabolites 150 Cannabinoids 50 Opiates 300 Pcp 25 Specimen was received without chain of custody. Results should be used for medical purposes only. 34 Therapeutic concentration: <50 ug/mL Toxic concentration: >120 ug/mL 35 Because ethnic data is not always readily [...] 15-29 5 Kidney failure <15 (or dialysis) 36 2 serum pour offs from red top tubes 37 Detection Limit = 4 <4 indicates None Detected Toxicity may occur at levels of 100-500. Measurements of free unbound valproic acid may improve the assess- ment of clinical response. 38 This test was developed and its performance characteristics determined by [facility]. It has not been cleared or approved by the Food and Drug Administration. 39 Troponin-I testing on Plasma Separator Tubes (PST) has a known false positive rate of 0.20-0.40%. All positive troponins reflex immediately to secondary confirmatory testing. Using the [employer] DxI 800 Access Immunoassay systems, the 99th percentile upper reference limit was demonstrated to be < 0.03 ng/mL. 40 SEE RESULT BELOW Name: GILDA CORTEZ : [address]: William Bangura MD Acct: [id number] Unit: [id number] AGE: 63 Location: [facility] 443-02 Re11/24/18 Dis: 11/27/18 SEX: M Status: DIS IN SPEC: [id number] SIENA: 11/24/[address]: Aung Alexander MD REQ: [id number] RECD: 11/24/18 STATUS: MICHAEL GANT DR: Louei Lewis MD _ SOURCE: BLOOD,VENO SPDES: ORDERED: Blood Cult Procedure Result Reported Site Aerobic Culture Bottle Final 11/29/18- 0857 ML No Growth Day 5 Anaerobic Culture Bottle Final 11/29/18- 0855 ML No Growth Day 5 * ML - Main Lab . END OF REPORT DEPARTMENT OF PATHOLOGY, [address] [place] [address] Alirio Hawkins M.D. Director [facility] # [id number] 41 Because ethnic data is not always [...] 5 Kidney failure <15 (or dialysis) 42 SEE RESULT BELOW Name: GILDA CORTEZ : [address]: William Bangura MD Acct: [id number] Unit: [id number] AGE: 63 Location: [place] [address] Re11/24/18 SEX: M Status: ADM IN SPEC: [id number] SEINA: 11/24/[address]: Aung Alexander MD REQ: [id number] RECD: 11/24/18 STATUS: RES [facility] DR: Louie Lewis MD _ SOURCE: SPUTUM,EXP SPDESC: ORDERED: Sputum Cult/GS Procedure Result Reported Site Sputum Smear Final 11/24/18- 1005 ML 2+ Neutrophils 2+ Nucleated Cells 1+ Epithelial Cells Mixed Morphotypes, resembling Normal Kannan Sputum Culture Preliminary 11/26/18- 1325 ML Organism 1 ENTEROBACTER SPECIES Quantity 1+ * ML - Main Lab . END OF REPORT DEPARTMENT OF PATHOLOGY, [address] [place] [address] Alirio Hawkins M.D. Director [facility] # [id number] 43 [facility] Severe Sepsis and Septic Shock Management Bundle Measure requires all lactic acids initially measuring >2.0 mmol/L be repeated. 44 Reference ranges based on room air. 45 Please note: The following may produce a false positive D Dimer test: - Rheumatoid factor greater than 60 IU/ml - Plasma hemoglobin greater than 0.05 gm/dl - Bilirubin greater than 50 mg/dl - Lipids greater than 1000 mg/dl - FDP greater than 20 ug/ml 46 Standard intensity warfarin therapeutic range: 2.0-3.0 High intensity warfarin therapeutic range: 2.5-3.5 47 1 serum pour off from red top tube 48 Concentrations above 2.0 ng/mL are generally considered toxic. Some overlap of toxic and non-toxic values have been reported. Detection Limit = 0.4 ng/mL Therapeutic range is derived from 2013 ACCF/AHA Guidelines for the Management of Heart Failure. 49 consistent w/ previous results 50 consistent w/ previous results 51 NON-FASTING 52 Concentrations above 2.0 ng/mL are generally considered toxic. Some overlap of toxic and non-toxic values have been reported. Detection Limit = 0.4 ng/mL Therapeutic range is derived from 2013 ACCF/AHA Guidelines for the Management of Heart Failure. Procedures Date Code Description Status 03/26/2017 [id number] Colonoscopy Completed 03/19/2017 [id number] Colonoscopy Completed Medical Devices Description No Information Available Encounters Type Date Location Provider Dx Diagnosis Office Visit 03/21/2019 Main Office Louie Schafer S82.51xD Disp fx of med 4:00p MD kelsey Lewis of r tibia, 7thD Office Visit 03/07/2019 Main Office Louie Schafer S82.51xD Disp fx of med 11:20a MD kelsey Lewis of r tibia, 7thD G40.909 Epilepsy, unsp, [...] anxiety disorder I25.10 Athscl heart disease of [place] coronary artery w/o ang pctrs G40.909 Epilepsy, [...] Visit 12/04/2018 12:20p Main Office Louie Schafer ILee Ann.2 Chronic atrial MD Debbie fibrillation I73.9 Peripheral vascular disease, unspecified G40.309 Gen idiopathic epilepsy, not intractable, w/o stat epi F17.210 Nicotine dependence, cigarettes, uncomplicated I10 Essential (primary) hypertension J44.9 Chronic obstructive pulmonary disease, unspecified Office Visit 11/13/2018 12:00p Main Office Louie Schafer ILee Ann.2 Chronic atrial MD Debbie fibrillation I73.9 Peripheral vascular disease, unspecified S01.01xD Laceration without foreign body of scalp, subs encntr W01.198A Fall same lev from slip/trip w strike agnst oth object, init Office Visit 10/23/2018 3:50p Main Office Louie Meade48.2 Timothy atrial MD Debbie fibrillation M25.512 Pain in left shoulder J18.8 Other pneumonia, unspecified organism Assessments Date Code Description Provider 04/17/2019 F33.9 Major depressive disorder, recurrent, Louie [...] Barboza 02/27/2019 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[place] ISAC Barboza coronary artery with 02/27/2019 G40.909 [...] Other pneumonia, unspecified organism Louie Lewis MD Plan of Treatment Future Appointment(s):05/14/2019 1:40 pm - Louie Lewis MD at Main Orlxuf9704/17/2019 - Louie Lewis MDF33.9 Major depressive disorder, recurrent, gporibscowiY07.00 Insomnia, qiatzntwgarE63.1 Hypo-osmolality and hyponatremiaAllComments:Medication Management Patient Understands medications he 's taking? Yes No Are there Barriersto Adherence? Yes No Has the patient been asked about herbal supplements and therapies, and OTC meds? Yes No Functional Status Description No Information Available Mental Status Description No Information Available Referrals Refer to Reason for Referral Status Appt Date Visiting Nurse Services Consult and treat, internal fixation distal Sent fibula and medial melleolus. LT [address] [place] [address] [phone] [facility] EVALUATE AND TREAT FOR PAIN MANAGEMENT Patient Declined [address] [facility] [address] [phone]
[2019-05-06 07:15] VITALS: BP 149/102
== END 2019-05-06 07:17 | disposition home or self-care (01) ==
LOC: ED 23:11
DX: I11.0 Hypertensive heart disease with heart failure (principal); I50.9 Heart failure, unspecified; J90 Pleural effusion, not elsewhere classified; R91.8 Other nonspecific abnormal finding of lung field; I48.91 Unspecified atrial fibrillation; J44.9 Chronic obstructive pulmonary disease, unspecified; G62.9 Polyneuropathy, unspecified; Z95.2 Presence of prosthetic heart valve; Z79.01 Long term (current) use of anticoagulants; Z95.1 Presence of aortocoronary bypass graft; Z95.810 Presence of automatic (implantable) cardiac defibrillator; F17.210 Nicotine dependence, cigarettes, uncomplicated
CPT/HCPCS: 36415; 71045; 71275; 80053; 80320; 82803; 83605; 83880; 84484; 85025; 85610; 87040; 93005; 96365; 96375; 99283; A9270-GY; G0480; J0456; J0696; J1940; Q9967

== ENCOUNTER 2019-06-27 12:59 | Emergency (ER) | payer MEDICARE, MEDICAID ==
--- NOTE | 2019-06-27 13:07 | ED ---
Adult Trauma - HPI Summary HPI Summary: This patient is a 64 male brought in by EMS presenting to [facility] with a chief complaint of injuries after a fall. EMS states he was found on the floor with a cigarette in one hand and beer with the other and he states he cannot stand up and that he fell. EMS states his glucose was 53 and they gave him 15 g of oral glucose. He states pain down the left side of his back. He states he also fell down the stairs yesterday. He states he did not hit his head in either fall. He denies headache and abdominal pain. EMS states he was able to ambulate once they got him off of the ground. He has a Hx of COPD, AFIB, and CABG. - History of Current Complaint Stated Complaint: FALL PER EMS Hx Obtained From: Patient, EMS Mechanism of Injury: Fall Onset/Duration: Started Hours Ago, Started Days Ago - Additional Pertinent History Primary Care Physician: [id number] - Allergy/Home Medications Allergies/Adverse Reactions: Allergies Allergy/AdvReac Type Severity Reaction Status Date / Time No Known Allergies Allergy Verified 03/01/19 19:19 PMH/Surg Hx/FS Hx/Imm Hx Endocrine/Hematology History: Reports: Hx Anticoagulant Therapy Denies: Hx Diabetes, Hx Thyroid Disease Cardiovascular History: Reports: Hx Auto Implanted Cardiovert Defib, Hx Hypertension, Hx Pacemaker/ICD - [employer]ometry [employer] -GUIANDANT - NOT MR SAFE/ CONDITIONAL, Hx Peripheral Vascular Disease, Hx Valvular Heart Disease - Recent valve replacement surgery, Other Cardiovascular Problems/Disorders - Hx Atrial Fibrillation and was treatment with Warfarin which has been d/c'd Respiratory History: Reports: Hx Chronic Bronchitis, Hx Chronic Obstructive Pulmonary Disease (COPD), Other Respiratory Problems/Disorders - poss aspiration Denies: Hx Asthma History: Reports: Other Problems/Disorders - History of SIADH Denies: Hx Dialysis, Hx Renal Disease Musculoskeletal History: Reports: Other Musculoskeletal History - peripheral neuropathy Denies: Hx Arthritis, Hx Osteoporosis Sensory History: Reports: Hx Cataracts, Hx Contacts or Glasses Denies: Hx Hearing Aid Opthamlomology History: Reports: Hx Cataracts, Hx Contacts or Glasses Neurological History: Reports: Hx Seizures - seizure d/o, Other Neuro Impairments/Disorders - PERIPHERAL NEUROPATHY Denies: Hx Dementia Psychiatric History: Reports: Hx Anxiety, Hx Depression, Hx Panic Disorder, Hx Post Traumatic Stress Disorder, Hx Inpatient Treatment, Hx Community Mental Health Tx, Hx Bipolar Disorder, Hx Suicide Attempt, Hx of Violent Episodes Against Others, Hx Substance Abuse, Other Psychiatric Issues/Disorders - has had ECT treatment Denies: Hx Attention Deficit Hyperactivity Disorder, Hx Eating Disorder, Hx Schizophrenia - Surgical History Surgery Procedure, Year, and Place: CABG, PACEMAKER Hx Anesthesia Reactions: No - Immunization History Date of Tetanus Vaccine: PT STATES UNSURE Date of Influenza Vaccine: NONE Infectious Disease History: Reports: Hx Tuberculosis - hx of inactive TB Denies: Hx Clostridium Difficile, Hx Hepatitis, Hx Human Immunodeficiency Virus (HIV), Hx of Known/Suspected MRSA, Hx Shingles, Hx Known/Suspected VRE, Hx Known/Suspected VRSA, History Other Infectious Disease - Family History Known Family History: Positive: Other - Mother -- depression, Father -- EtOH abuse - Social History Alcohol Use: Daily Alcohol Amount: about 72 onces Hx Substance Use: Yes Substance Use Type: Reports: Marijuana Substance Use Comment - Amount & Last Used: Last used Sunday Hx Tobacco Use: Yes Smoking Status (MU): Heavy Every Day Tobacco Smoker Type: Cigarettes Amount Used/How Often: 1/2 PPD Length of Time of Smoking/Using Tobacco: 40 YRS Have You Smoked in the Last Year: Yes Review of Systems Negative: Abdominal Pain Positive: Other - Back pain Negative: Headache All Other Systems Reviewed And Are Negative: Yes Physical Exam - Summary Physical Exam Summary: Constitutional: Well-developed, Well-nourished, Alert, Cooperative Skin: Warm, Dry HENT: Normocephalic; No Racoons eyes; No butler's sign; No abrasion; No contusion; No hemotympanum; No maxilla facial tenderness or instability; Dentition are smooth; No dental trauma; No trismus Eyes: EOM normal, PERRL Neck: Trachea is midline. No stridor; No JVD; No step off; No posterior cervical spine tenderness Cardio: Rhythm regular, rate normal Heart sounds normal; Intact distal pulses; The pedal pulses are 2+ and symmetric. Radial pulses are 2+ and symmetric. Pulmonary/Chest wall: Effort normal; Breath sounds normal; Equal chest rise; No flail segment; No rib tenderness; No sternal tenderness Abd: Soft, Appearance normal. No distension; No tenderness; No palpable pulsatile mass; No Cullens sign; No Wood-Turners sign Musculoskeletal: Full ROM and no tenderness at hips, ankles, shoulders, elbows and knees; No joint swelling; No vertebral body tenderness; No paraspinal tenderness; No step off or deformity of the spine; Pelvis is stable to lateral compression and rock. Left anterolateral chest wall pain. Neuro: Alert, Oriented x3, Strength 5/5 all extremities. No focal deficits. : No blood at urethral meatus Psych: Mood and affect Normal Triage Information Reviewed: Yes Vital Signs Reviewed: Yes Procedures - Sedation Patient Received Moderate/Deep Sedation with Procedure: No Diagnostics - Laboratory Result Diagrams: 06/27/19 13:27 06/27/19 13:27 Lab Statement: Any lab studies that have been ordered have been reviewed, and results considered in the medical decision making process. - Radiology Ribs/CXR Radiology Interpretation Completed By: Radiologist Summary of Radiographic Findings: 1. Nondisplaced fracture of lateral aspect of the left ninth rib without pneumothorax. 2. Right pleural effusion. ED Physician has reviewed this report. Adult Trauma Course/Dx - Course Course Of Treatment: This patient is a 64 male brought in by EMS presenting to [facility] with a chief complaint of injuries after a fall. Physical exam revealed anterolateral tenderness over the left chest wall. Left Ribs/CXR revealed 1. Nondisplaced fracture of lateral aspect of the left ninth rib without pneumothorax. 2. Right pleural effusion. Patient was administered a Lidoderm patch and will get a prescription for home. He was also prescribed Flexeril. A plan for discharge was discussed with the patient and he was agreeable with this plan. Rib x-ray revealed single left-sided rib fracture. Patient ambulating around ED okay, steady gait, feels well for discharge home. Given scripts for Flexeril and Lidoderm patch. Has PCP for follow-up. - Diagnoses Provider Diagnoses: Rib fracture Discharge ED - Sign-Out/Discharge Documenting (check all that apply): Patient Departure - Discharge - Discharge Plan Condition: Stable Disposition: HOME Prescriptions: Cyclobenzaprine TAB* [Flexeril 10 MG TAB*] 10 mg PO TID PRN 10 Days #30 tab PRN Reason: Pain - Moderate Lidocaine PATCH 5%* [Lidoderm 5% Patch*] 1 patch TRANSDERM DAILY PRN 15 Days # 15 patch PRN Reason: Pain - Moderate Patient Education Materials: Rib Fracture (ED) Referrals: Louie Lewis MD [Primary Care Provider] - 3 Days Additional Instructions: Return to ED with new or worsening symptoms. - Billing Disposition and Condition Condition: STABLE Disposition: Home - Attestation Statements Document Initiated by Cristian: Yes Documenting Scribe: William Sandoval Provider For Whom Cristian is Documenting (Include Credential): Luis Antonio Garcia DO Scribrakel Attestation: William Meade, urbanoibed for Luis Antonio Garcia DO on 06/27/19 at 2002. Scribe Documentation Reviewed: Yes Provider Attestation: The documentation as recorded by the William fajardo accurately reflects the service I personally performed and the decisions made by me, Luis Antonio Garcia DO Status of Scribe Document: Viewed
[2019-06-27] MEDS ORDERED: Lidocaine PATCH 5%* 1 PATCH TRANSDERM ONE (13:29)
[2019-06-27 13:33] LABS: Hematocrit 35 % (42-52); Hemoglobin 12.4 g/dL (14.0-18.0); Mean Corpuscular HGB Conc 35 g/dL (31-36); Mean Corpuscular Hemoglobin 31 pg (27-31); Mean Corpuscular Volume 88 fL (80-94); Mean Platelet Volume 6.6 fL (7.4-10.4); Platelet Count 251 10^3/uL (150-450); Red Blood Count 4.02 10^6 /uL (4.18-5.48); Red Cell Distribution Width 14 % (10-15); White Blood Count 5.6 10^3/uL (3.5-10.8)
[2019-06-27 13:38] LABS: ABS Basophils 0.1 10^3/ul (0-0.2); ABS Eosinophils 0.2 10^3/ul (0-0.6); ABS Lymphocytes 0.9 10^3/ul (1.0-4.8); ABS Monocytes 0.5 10^3/ul (0-0.8); ABS Neutrophils 3.9 10^3/ul (1.5-7.7); Eosinophil % 3.5 %; Lymphocyte % 16.7 %; Nucleated Red Blood Cells % 0.1
[2019-06-27 13:55] LABS: ALT 12 U/L (7-52); AST 15 U/L (13-39); Albumin 3.8 g/dL (3.2-5.2); Albumin/Globulin Ratio 1.1 (1-3); Alkaline Phosphatase 112 U/L (34-104); Anion Gap 5 mmol/L (2-11); BUN/Creatinine Ratio 9.3 (8-20); Blood Urea Nitrogen 7 mg/dL (6-24); CO2 Carbon Dioxide 28 mmol/L (22-32); Calcium 9.2 mg/dL (8.6-10.3); Chloride 93 mmol/L (101-111); EGFR African American 126.9 (>60); EGFR Non-African American 104.8 (>60); Globulin 3.4 g/dL (2-4); Glucose 113 mg/dL (70-100); Sodium 126 mmol/L (135-145); Total Protein 7.2 g/dL (6.4-8.9)
[2019-06-27] MEDS ORDERED: NS 0.9% 1000 ML** 1,000 ML IV ONE (14:04)
[2019-06-27 14:30] LABS: Alcohol < 10 mg/dL (<10)
[2019-06-27] MEDS ORDERED: Acetaminophen TAB* 325 MG PO ONE (15:24)
[2019-06-27] MEDS ORDERED: oxyCODONE/Acetamin 5/325 MG* TAB PO ONE (15:26)
[2019-06-27] MEDS ORDERED: Cyclobenzaprine TAB* 10 MG PO ONE (15:27)
--- OUTSIDE RECORDS SUMMARY | 2019-06-27 15:49 | XMS REPORT | Continuity of Care Document ---
:1955 External Reference #:[id number] Author Name Luis Antonio Phillip M.D. (transmitted by agent of provider Teetee Frost ) Address [address] [facility], [place] [address] Care Team Providers Name Role Phone Genaro Valenzuela MD - Care Team Information Rotational Moulding Operator [phone] Ophthalmology Clifford Ventura DPM - Foot Surgery Care Team Information Rotational Moulding Operator Vipul Grant MD - Neurology Care Team Information Rotational Moulding Operator [phone] Ne Mckeon MD - Psychiatry Care Team Information Rotational Moulding Operator Louie Lewis MD - Family Care Team Information Rotational Moulding Operator [phone] Medicine Jonathan An M.D. - Care Team Information Rotational Moulding Operator [phone] Gastroenterology Problems Active Problems Provider Date Epilepsy [...] Smoker 1 Pack Daily Smoking Status Reviewed: 06/17/19 Current Cigarette 1 pack plus per day [...] Medications SIG Qnty Indications Ordering Date Provider Nebulizer 1 unit every 4 1units J44.9 [place] 05/29/2019 Device hours, as needed JEFFREY Kelly Ipratropium 1 unit every 4-6 540ml J44.9 [place] 05/29/2019 [place]/Albuterol hours as needed JEFFREY Kelly Sulfate 0.5-2.5(3)mg/3ML Solution Nicotine 1 patch on skin 30units F17.210 [place] 05/29/2019 14mg/24HR every day JEFFREY Kelly Patches 24HR Nebulizer use every 4 hours 1units J44.9 [place] 05/29/2019 Kit/Tubing/Mouthpiece as instructed JEFFREY Kelly Kit Metoprolol Succinate 1 by mouth every 30tabs Celestina Rasmussen, 12/25/2018 ER day N.P. 50mg Tablets ER 24HR Cardizem CD 1 by mouth every 30caps Celestina Rasmussen, 12/25/2018 240mg Caps day N.P. ER 24HR Zoloft Pt takes 2 tabs Unknown 12/24/2018 100mg Tablets by mouth daily Lorazepam 1 tab by mouth at Unknown 12/24/2018 2mg Tablets bedtime, as needed Digoxin 1 by mouth every 90tabs Celestina Rasmussen, 11/11/2018 125mcg Tablets day N.P. Flomax 1 by mouth every Unknown 10/13/2018 0.4mg Capsules day Levetiracetam Take One Tablet 90tabs G40.909 Reg S. 11/20/2017 750mg By Mouth Three Radames Horton Tablets Times Daily Incruse Ellipta Use One 30units Nasreen Servin, 08/14/2017 Inhalation Every 62.5mcg/Inh Aerosol Day Breo Ellipta 1 puff inhaled 60units [place] 03/30/2015 daily JEFFREY Kelly 100-25mcg/Inh Aerosol Cilostazol 2 tabs by mouth Unknown 100mg once daily Tablets Fluticasone as needed Casandra Michelle Propionate A, N.P. 50mcg/Act Suspension Aripiprazole 1 by mouth every Unknown 5mg day Tablets Aspirin chew one tablet Unknown 81mg Chewtabs by mouth every day Divalproex Sodium Unknown 500mg Tablets DR Thiamine HCL 1 by mouth every Unknown 100mg day Tablets Belsomra Debbie, 20mg Tablets oLuie Rios MD Oxycodone-Acetaminoph Debbie, en Louie Rios MD 7.5-325mg Tablets History Medications Methylprednisolone 4mg Unknown 12/24/2018 - 2018 Tablets Medications Administered in Office Medication SIG Qnty Indications Ordering Provider Date Inj, Regadenoson, 0.1 MG Simone Barboza, DO [facility] 04/14/2015 Injection Inj, Regadenoson, 0.1 MG Rosales Reich M.D. 04/14/2015 Injection Technetium TC 99M Simone Barboza, DO [facility] 04/14/2015 Tetrofosmin, Per Unit Dose Up To 40 Millicuries Injection Technetium TC 99M Rosales Reich M.D. 04/14/2015 Tetrofosmin, Per Unit Dose Up To 40 Millicuries Injection Influenza Virus Vaccine Unknown 04/15/2014 Injection Immunizations CPT Code Status Date Vaccine Lot # [id number] Given 05/05/2014 Pneumococcal Conjugate Vaccine 13 Valent For [id number] Intramuscular Use Q2038 Given 03/25/2012 Fluzone Vaccine [id number] Vital Signs Date Vital Result Comment 06/17/2019 10:42am Height 69.5 inches 5'9.50" Weight 155.00 lb Heart Rate 75 /min BP Systolic 104 mmHg BP Diastolic 76 mmHg BMI (Body Mass Index) 22.6 kg/m2 05/29/2019 9:52am Height 69.5 inches 5'9.50" Weight 162.00 lb Heart Rate 54 /min BP Systolic 110 mmHg BP Diastolic 62 mmHg O2 % BldC Oximetry 90 % BMI (Body Mass Index) 23.6 kg/m2 Results Description No Information Available Procedures Date Code Description Status 03/24/2019 47141 Pace Maker Eval W/Iterative Adjment Dual Lead Completed 03/24/2019 19172 Pace Maker Eval W/Iterative Adjment Dual Lead Completed 02/04/2019 86108 Walking Cast Completed 01/20/2019 75831 ORIF Open TX Bimalleolar Ankle FX Includes Internal Completed Fixation 01/20/2019 55453 ORIF Open TX Bimalleolar Ankle FX Includes Internal Completed Fixation 01/10/2019 20780 EKG Tracing & Interpretation Completed 01/10/2019 46170 EKG Tracing & Interpretation Completed 12/25/2018 93437 EKG Tracing & Interpretation Completed 12/18/2018 67113 EKG, Interpretation Only Completed 07/09/2004 [id number] Colonoscopy Completed Medical Devices Description No Information Available Encounters Type Date Location Provider Dx Diagnosis Office Visit 05/29/2019 [facility] [place] J44.9 Chronic 10:00a [facility] JEFFREY Kelly obstructive Guest Services Ambassador pulmonary disease, unspecified J98.4 Other disorders of lung F17.210 Nicotine dependence, cigarettes, uncomplicated Office Visit 04/09/2019 [facility] Ivan E87.1 Hypo-osmolality and 12:27p Assoctal PA hyponatremia Hospitalists F31.9 Bipolar disorder, unspecified B37.0 Candidal stomatitis R45.851 Suicidal ideations [facility] Hypo-osmolality and 12:26p Assoctal NP hyponatremia Hospitalists R45.851 Suicidal ideations I95.9 Hypotension, unspecified F10.10 Alcohol abuse, uncomplicated Office Visit 04/07/2019 [facility] E87.1 Hypo-osmolality and 12:25p Asstal garza NP hyponatremia Hospitalists R45.851 Suicidal ideations F31.9 Bipolar disorder, unspecified Office Visit 03/24/2019 [facility] Jose D F10.10 Alcohol abuse, 2:00p Neurologic Hargrove, N.P. uncomplicated Services Of [facility] I48.91 Unspecified atrial fibrillation G40.909 Epilepsy, unsp, not intractable, without status epilepticus I73.9 Peripheral vascular disease, unspecified J44.9 Chronic obstructive pulmonary disease, unspecified Office Visit 02/21/2019 [facility] L03.115 Cellulitis of 10:32a Assoctal NP right lower limb Hospitalists E72.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, unspecified B37.0 Candidal stomatitis F99 Mental disorder, not otherwise specified I48.91 Unspecified atrial fibrillation F10.10 Alcohol abuse, uncomplicated I25.10 Athscl heart disease of [place] coronary artery w/o ang pctrs J44.9 Chronic obstructive pulmonary disease, unspecified I10 Essential (primary) hypertension I73.9 Peripheral vascular disease, unspecified G40.909 Epilepsy, unsp, not intractable, without status epilepticus Office Visit 02/20/2019 [facility] L03.115 Cellulitis of 10:31a Assoc,pc Liam, FELLING MACHINE OPERATOR right lower limb Hospitalists E72.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, unspecified B37.0 Candidal stomatitis F99 Mental disorder, not otherwise specified I48.91 Unspecified atrial fibrillation F10.10 Alcohol abuse, uncomplicated I25.10 Athscl heart disease of [place] coronary artery w/o ang pctrs J44.9 Chronic obstructive pulmonary disease, unspecified I10 Essential (primary) hypertension G40.909 Epilepsy, unsp, not intractable, without status epilepticus Office Visit 02/19/2019 10:31a [facility] Patricia Latesha, L03.115 Cellulitis of Assoc,pc FELLING MACHINE OPERATOR right lower limb Hospitalists E72.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, unspecified F10.10 Alcohol abuse, uncomplicated B37.0 Candidal stomatitis I10 Essential (primary) hypertension I73.9 Peripheral vascular disease, unspecified I48.91 Unspecified atrial fibrillation I25.10 Athscl heart disease of [place] coronary artery w/o [facility] pctrs J44.9 Chronic obstructive pulmonary disease, unspecified Office Visit 02/18/2019 [facility] L03.115 Cellulitis of 10:31a Assoc,pc William, PA right lower Hospitalists limb R41.82 Altered mental status, unspecified B37.0 Candidal stomatitis F10.10 Alcohol abuse, uncomplicated E83.42 Hypomagnesemia F17.200 Nicotine dependence, unspecified, uncomplicated J44.9 Chronic obstructive pulmonary disease, unspecified I10 Essential (primary) hypertension I48.91 Unspecified atrial fibrillation I25.10 Athscl heart disease of [place] coronary artery w/o [facility] pctrs F99 Mental disorder, not otherwise specified Office Visit 01/26/2019 [facility] Kimberly S82.891A Oth fracture 8:58a Assoc,pc Bud, FELLING MACHINE OPERATOR of right lower Hospitalists leg, init for clos fx I48.91 Unspecified atrial fibrillation F10.10 Alcohol abuse, uncomplicated J44.9 Chronic obstructive pulmonary disease, unspecified G40.909 Epilepsy, unsp, not intractable, without status epilepticus I73.9 Peripheral vascular disease, unspecified Office Visit 01/23/2019 8:56a [facility] [place] S82.891A Oth fracture Assoc,pc Jt Doto, of right lower Hospitalists FELLING MACHINE OPERATOR leg, init for clos fx I48.91 Unspecified atrial fibrillation I25.10 Athscl heart disease of [place] coronary artery w/o ang pctrs I10 Essential (primary) hypertension J44.9 Chronic obstructive pulmonary disease, unspecified Office Visit 01/22/2019 10:14a [facility] [place] S82.891A Oth fracture Assoc,pc Jt Doto, of right lower Hospitalists FELLING MACHINE OPERATOR leg, init for clos fx I10 Essential (primary) hypertension R53.83 Other fatigue I48.91 Unspecified atrial fibrillation J44.9 Chronic obstructive pulmonary disease, unspecified Office Visit 01/21/2019 10:13a [facility] [place] S82.891A Oth fracture Assoc,pc Jt Doto, of right lower Hospitalists FELLING MACHINE OPERATOR leg, init for clos fx R53.83 Other fatigue J44.9 Chronic obstructive pulmonary disease, unspecified I48.91 Unspecified atrial fibrillation G40.909 Epilepsy, unsp, not intractable, without status epilepticus Office Visit 01/20/2019 10:12a [facility] [place] S82.891A Oth fracture Assoc,pc Jt Doto, of right lower Hospitalists FELLING MACHINE OPERATOR leg, init for clos fx R53.83 Other fatigue Office Visit 01/20/2019 [facility] William S82.841A Displaced 10:11a at Loree Moe M.D. bimalleolar fracture of right lower leg, init Office Visit 01/19/2019 [facility] Kusum S82.841A Displaced 10:11a Assoctal MD bimalleolar Hospitalists fracture of right lower leg, init E87.1 Hypo-osmolality and hyponatremia W19.xxxA Unspecified fall, initial encounter Y92.[address] of occurrence of the external cause Office Visit 12/26/2018 [facility] Luis Antonio F10.20 Alcohol 1:45p Neurologic Mar Phillip. dependence, Services Of Guest Services Ambassador uncomplicated G40.909 Epilepsy, unsp, not intractable, without status epilepticus Office Visit 12/25/2018 11:00a [facility] Celestina Echeverria I35.0 Nonrheumatic Foster, N.P. aortic (valve) stenosis I48.91 Unspecified atrial fibrillation F17.210 Nicotine dependence, cigarettes, uncomplicated I50.9 Heart failure, unspecified F10.20 Alcohol dependence, uncomplicated Office Visit 12/22/2018 [facility] F10.239 Alcohol 9:41a Assoctal MD dependence with Hospitalists withdrawal, unspecified J44.9 Chronic obstructive pulmonary disease, unspecified I48.91 Unspecified atrial fibrillation I10 Essential (primary) hypertension E87.1 Hypo-osmolality and hyponatremia I25.10 Athscl heart disease of [place] coronary artery w/o ang pctrs Z72.0 Tobacco use Office Visit 12/21/2018 [facility] F10.239 Alcohol 9:40a Assoctal MD dependence with Hospitalists withdrawal, unspecified J44.9 Chronic obstructive pulmonary disease, unspecified I48.91 Unspecified atrial fibrillation I25.10 Athscl heart disease of [place] coronary artery w/o ang pctrs Z72.0 Tobacco use I10 Essential (primary) hypertension E87.1 Hypo-osmolality and hyponatremia Office Visit 12/20/2018 11:51a [facility] Shashi Garcia I48.2 Chronic atrial Of [facility] Mar Medina., fibrillation FACC, FASNC Z95.2 Presence of prosthetic heart valve F10.120 Alcohol abuse with intoxication, uncomplicated F31.9 Bipolar disorder, unspecified R45.851 Suicidal ideations E86.0 Dehydration Z72.0 Tobacco use I95.9 Hypotension, unspecified Office Visit 12/20/2018 [facility] Karen I48.91 Unspecified atrial 9:40a Assoc,tal Wilson PA-C fibrillation Hospitalists I47.2 Ventricular tachycardia J44.1 Chronic obstructive pulmonary disease w (acute) exacerbation I95.9 Hypotension, unspecified F10.239 Alcohol dependence with withdrawal, unspecified R45.851 Suicidal ideations I25.10 Athscl heart disease of [place] coronary artery w/o ang pctrs E87.1 Hypo-osmolality and hyponatremia Z72.0 Tobacco use I10 Essential (primary) hypertension Office Visit 12/18/2018 9:39a 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 intractable, without status epilepticus 06/17/2019 F31.9 Bipolar disorder, unspecified Luis Antonio Phillip M.D. 06/17/2019 J44.9 Chronic obstructive pulmonary Luis Antonio Phillip M.D. disease, unspecified 06/17/2019 F17.210 Nicotine dependence, cigarettes, Luis Antonio Phillip M.D. uncomplicated 06/17/2019 F10.10 Alcohol abuse, uncomplicated Luis Antonio Phillip M.D. 05/29/2019 J44.9 Chronic obstructive pulmonary [place] Kelly NP disease, unspecified 05/29/2019 J98.4 Other disorders of lung [place] Kelly NP 05/29/2019 F17.210 Nicotine dependence, cigarettes, [place] Kelly NP uncomplicated 04/09/2019 E87.1 Hypo-osmolality and hyponatremia ISAC Romero 04/09/2019 F31.9 Bipolar disorder, unspecified ISAC Romero 04/09/2019 B37.0 Candidal stomatitis ISAC Romero 04/09/2019 R45.851 Suicidal ideations ISAC Romero 04/08/2019 E87.1 Hypo-osmolality and hyponatremia Kimberly Farrell, JEFFREY 04/08/2019 R45.851 Suicidal ideations Kimberly Farrell, JEFFREY 04/08/2019 I95.9 Hypotension, unspecified Kimberly Farrell, JEFFREY 04/08/2019 F10.10 Alcohol abuse, uncomplicated Kimberly Farrell, FELLING MACHINE OPERATOR 04/07/2019 E87.1 Hypo-osmolality and hyponatremia Kimberly Farrell, FELLING MACHINE OPERATOR 04/07/2019 R45.851 Suicidal ideations Kimberly Farrell, FELLING MACHINE OPERATOR 04/07/2019 F31.9 Bipolar disorder, unspecified Kimberly Farrell, FELLING MACHINE OPERATOR 03/24/2019 Z95.0 Presence of cardiac pacemaker Rosales Reich M.D. 03/24/2019 F10.10 Alcohol abuse, uncomplicated Jose D Hargrove, N.P. 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, [facility], FELLING MACHINE OPERATOR unspecified 02/21/2019 B37.0 Candidal stomatitis [facility], FELLING MACHINE OPERATOR 02/21/2019 F99 Mental disorder, not otherwise [facility], FELLING MACHINE OPERATOR specified 02/21/2019 I48.91 Unspecified atrial fibrillation [facility] Short, FELLING MACHINE OPERATOR 02/21/2019 F10.10 Alcohol abuse, uncomplicated [facility] Short, FELLING MACHINE OPERATOR 02/21/2019 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[facility], FELLING MACHINE OPERATOR [place] coronary artery without angina pectoris 02/21/2019 J44.9 Chronic obstructive pulmonary [facility], FELLING MACHINE OPERATOR disease, unspecified 02/21/2019 I10 Essential (primary) hypertension [facility], FELLING MACHINE OPERATOR 02/21/2019 I73.9 Peripheral vascular disease, Imani Shortle, FELLING MACHINE OPERATOR unspecified 02/21/2019 G40.909 Epilepsy, unspecified, not Imani Shortle, FELLING MACHINE OPERATOR intractable, without status epilepticus 02/20/2019 L03.115 Cellulitis of right lower limb Imani Wheeler, FELLING MACHINE OPERATOR 02/20/2019 E72.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, Imani Shortle, FELLING MACHINE OPERATOR unspecified 02/20/2019 B37.0 Candidal stomatitis Imani Shortle, FELLING MACHINE OPERATOR 02/20/2019 F99 Mental disorder, not otherwise [facility] Liam, FELLING MACHINE OPERATOR specified 02/20/2019 I48.91 Unspecified atrial fibrillation Imani Shortyojana, FELLING MACHINE OPERATOR 02/20/2019 F10.10 Alcohol abuse, uncomplicated Imani Shortle, FELLING MACHINE OPERATOR 02/20/2019 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[facility] Gaudencio, FELLING MACHINE OPERATOR [place] coronary artery without angina pectoris 02/20/2019 J44.9 Chronic obstructive pulmonary [facility] Gaudencio, FELLING MACHINE OPERATOR disease, unspecified 02/20/2019 I10 Essential (primary) hypertension Imani Shortle, FELLING MACHINE OPERATOR 02/20/2019 G40.909 Epilepsy, unspecified, not Imani Shortle, FELLING MACHINE OPERATOR intractable, without status epilepticus 02/19/2019 L03.115 Cellulitis of right lower limb ISAC Salgado 02/19/2019 L03.115 Cellulitis of right lower limb Patricia Latesha, FELLING MACHINE OPERATOR 02/19/2019 L97.519 Non-pressure chronic ulcer of other ISAC Salgado part of right foot with unspecified severity 02/19/2019 E72.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, Patricia Latesha, FELLING MACHINE OPERATOR unspecified 02/19/2019 S82.841D Displaced bimalleolar fracture of ISAC Salgado right lower leg, subsequent encounter for closed fracture with routine healing 02/19/2019 F10.10 Alcohol abuse, uncomplicated Patricia Latesha, FELLING MACHINE OPERATOR 02/19/2019 B37.0 Candidal stomatitis Patricia Latesha, FELLING MACHINE OPERATOR 02/19/2019 I10 Essential (primary) hypertension Patricia Latesha, FELLING MACHINE OPERATOR 02/19/2019 I73.9 Peripheral vascular disease, Patricia Latesha, FELLING MACHINE OPERATOR unspecified 02/19/2019 I48.91 Unspecified atrial fibrillation Patricia Latesha, FELLING MACHINE OPERATOR 02/19/2019 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Patricia Charlton FELLING MACHINE OPERATOR [place] coronary artery without angina pectoris 02/19/2019 J44.9 Chronic obstructive pulmonary Patricia Wesleyulx, FELLING MACHINE OPERATOR disease, unspecified 02/18/2019 L03.115 Cellulitis of right lower limb ISAC Mccoy 02/18/2019 R41.82 Altered mental status, unspecified ISAC Mccoy 02/18/2019 B37.0 Candidal stomatitis ISAC Mccoy 02/18/2019 F10.10 Alcohol abuse, uncomplicated ISAC Mccoy 02/18/2019 E83.42 Hypomagnesemia ISAC Mccoy 02/18/2019 F17.200 Nicotine dependence, unspecified, ISAC Mccoy uncomplicated 02/18/2019 J44.9 Chronic obstructive pulmonary ISAC Mccoy disease, unspecified 02/18/2019 I10 Essential (primary) hypertension ISAC Mccoy 02/18/2019 I48.91 Unspecified atrial fibrillation ISAC Mccoy 02/18/2019 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ISAC Mccoy [place] coronary artery without angina pectoris 02/18/2019 F99 Mental disorder, not otherwise ISAC Mccoy specified 02/04/2019 S82.891A Other fracture of right lower leg, William Moe M.D. initial encounter for isaiah 01/26/2019 S82.891A Other fracture of right lower leg, Kimberly Farrell NP initial encounter for isaiah 01/26/2019 I48.91 Unspecified atrial fibrillation Kimberly Farrell NP 01/26/2019 F10.10 Alcohol abuse, uncomplicated Kimberly Farrell FELLING MACHINE OPERATOR 01/26/2019 J44.9 Chronic obstructive pulmonary Kimberly Farrell NP disease, unspecified 01/26/2019 G40.909 Epilepsy, unspecified, not Kimberly Farrell NP intractable, without status epilepticus 01/26/2019 I73.9 Peripheral vascular disease, Kimberly Farrell NP unspecified 01/23/2019 S82.891A Other fracture of right lower leg, Airam Jt Doto , FELLING MACHINE OPERATOR initial encounter for isaiah 01/23/2019 I48.91 Unspecified atrial fibrillation Airam Waters Doto, FELLING MACHINE OPERATOR 01/23/2019 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Airam Waters Tushar, FELLING MACHINE OPERATOR [place] coronary artery without angina pectoris 01/23/2019 I10 Essential (primary) hypertension Airam Becerrafield Finley, FELLING MACHINE OPERATOR 01/23/2019 J44.9 Chronic obstructive pulmonary Airam Waters Tushar, FELLING MACHINE OPERATOR disease, unspecified 01/22/2019 S82.891A Other fracture of right lower leg, Airam Jt Finley , FELLING MACHINE OPERATOR initial encounter for isaiah 01/22/2019 I10 Essential (primary) hypertension Airam Becerrafield Doto, FELLING MACHINE OPERATOR 01/22/2019 R53.83 Other fatigue Airam Becerrafield Deleono, FELLING MACHINE OPERATOR 01/22/2019 I48.91 Unspecified atrial fibrillation Airam Becerrafield Finley, FELLING MACHINE OPERATOR 01/22/2019 J44.9 Chronic obstructive pulmonary Airam Waters Tushar, FELLING MACHINE OPERATOR disease, unspecified 01/21/2019 Z47.89 Encounter for other orthopedic ISAC Salgado aftercare 01/21/2019 S82.891A Other fracture of right lower leg, Airam Becerrafield Finley , FELLING MACHINE OPERATOR initial encounter for isaiah 01/21/2019 R53.83 Other fatigue Airam Becerrafield Deleono, FELLING MACHINE OPERATOR 01/21/2019 J44.9 Chronic obstructive pulmonary Airam Waters Adrienneo, FELLING MACHINE OPERATOR disease, unspecified 01/21/2019 I48.91 Unspecified atrial fibrillation Airam Becerrafield Finley, FELLING MACHINE OPERATOR 01/21/2019 G40.909 Epilepsy, unspecified, not Airam Waters Adrienneo, FELLING MACHINE OPERATOR intractable, without status epile 01/20/2019 S82.841A Displaced bimalleolar fracture of Faiza William RPA-C right lower leg, initial encounter for closed fracture 01/20/2019 S82.891A Other fracture of right lower leg, Airam Finley , FELLING MACHINE OPERATOR initial encounter for isaiah 01/20/2019 R53.83 Other fatigue Airamdelma Finley, FELLING MACHINE OPERATOR 01/20/2019 S82.841A Displaced bimalleolar fracture of William [...] block 12/25/2018 I48.91 Unspecified atrial fibrillation Celestina SBriseida Rasmussen, N.P. 12/25/2018 R94.31 Abnormal electrocardiogram [ECG] Rosales Reich M.D. [EKG] 12/25/2018 F17.210 Nicotine dependence, cigarettes, Celestina SBriseida Rasmussen, N.P. uncomplicated 12/25/2018 I50.9 Heart failure, unspecified Celestina S. Grady, N.P. 12/25/2018 F10.20 Alcohol dependence, uncomplicated Celestina SBriseida Rasmussen, N.P. 12/22/2018 F10.239 Alcohol dependence with withdrawal, Lucy Moore MD unspecified 12/22/2018 J44.9 Chronic obstructive pulmonary Lucy Moore MD disease, unspecified 12/22/2018 I48.91 Unspecified atrial fibrillation Lucy Moore MD 12/22/2018 I10 Essential (primary) hypertension Lucy Moore MD 12/22/2018 E87.1 Hypo-osmolality and hyponatremia Lucy Moore MD 12/22/2018 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Lucy Moore MD [place] coronary artery with 12/22/2018 Z72.0 Tobacco use Lucy Moore MD 12/21/2018 F10.239 Alcohol dependence with withdrawal, Lucy Moore MD unspecified 12/21/2018 J44.9 Chronic obstructive pulmonary Lucy Moore MD disease, unspecified 12/21/2018 I48.91 Unspecified atrial fibrillation Lucy Moore MD 12/21/2018 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Lucy Moore MD [place] coronary artery with 12/21/2018 Z72.0 Tobacco use Lucy Moore MD 12/21/2018 I10 Essential (primary) hypertension Lucy Moore MD 12/21/2018 E87.1 Hypo-osmolality and hyponatremia Lucy Moore MD 12/20/2018 I48.91 Unspecified atrial fibrillation Karen Wilson PA-C 12/20/2018 I47.2 Ventricular tachycardia SANDIP BustosC 12/20/2018 J44.1 Chronic obstructive pulmonary Karen Wilson PA-C disease with (acute) exacerbat 12/20/2018 I95.9 Hypotension, unspecified [facility] 12/20/2018 F10.239 Alcohol dependence with withdrawal, S[facility]IP Bustos[facility] unspecified 12/20/2018 R45.851 Suicidal ideations [facility] 12/20/2018 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Karen Wilson PA-C [place] coronary artery with 12/20/2018 E87.1 Hypo-osmolality and hyponatremia [facility] 12/20/2018 Z72.0 Tobacco use Karen Wilson PA-C 12/20/2018 I10 Essential (primary) hypertension Karen Wilson PA-C 12/20/2018 I48.2 Chronic atrial fibrillation Shashi Medina M.D., [facility], [facility] 12/20/2018 Z95.2 Presence of prosthetic heart valve Shashi Medina M.D., [facility], [facility] 12/20/2018 F10.120 Alcohol abuse with intoxication, Shashi Medina M.D., [facility], uncomplicated [facility] 12/20/2018 F31.9 Bipolar disorder, unspecified Shashi Medina M.D., [facility], [facility] 12/20/2018 R45.851 Suicidal ideations Shashi Medina M.D., [facility], [facility] 12/20/2018 E86.0 Dehydration Shashi Medina M.D., [facility], [facility] 12/20/2018 Z72.0 Tobacco use Shashi Medina M.D., [facility], [facility] 12/20/2018 I95.9 Hypotension, unspecified Shashi Medina M.D., [facility], [facility] 12/19/2018 I95.9 Hypotension, unspecified Kraen Wilson PA-C 12/19/2018 I48.91 Unspecified atrial fibrillation Karen Wilson PA-C 12/19/2018 F10.239 Alcohol dependence with withdrawal, Karen Wilson PA-C unspecified 12/19/2018 J44.9 Chronic obstructive pulmonary Karen Wilson PA-C disease, unspecified 12/19/2018 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Karen Wilson PA-C [place] coronary artery with 12/19/2018 E87.1 Hypo-osmolality and hyponatremia Karen Wilson PA-C 12/19/2018 I10 Essential (primary) hypertension Karen Wilson PA-C 12/18/2018 R94.31 Abnormal electrocardiogram [ECG] Pablo Mora MD, [facility], [EKG] [facility] [place] 12/18/2018 R45.851 Suicidal ideations Airam Finley NP 12/18/2018 I95.9 Hypotension, unspecified Airam Finley NP 12/18/2018 F10.20 Alcohol dependence, uncomplicated Airam Finley, [employer] 12/18/2018 Z86.79 Personal history of other diseases Airam Finley, FELLING MACHINE OPERATOR of the circulatory system 12/18/2018 Z87.09 Personal history of other diseases Airam Finley, FELLING MACHINE OPERATOR of the respiratory system 12/18/2018 Z86.69 Personal history of dis of the Airam Finley, FELLING MACHINE OPERATOR nervous sys and sense organs 12/18/2018 Z95.0 Presence of cardiac pacemaker Airam Finley, [employer]ING MACHINE OPERATOR 12/18/2018 Z95.2 Presence of prosthetic heart valve Airam Finley, [employer]LLING MACHINE OPERATOR 12/18/2018 F17.200 Nicotine dependence, unspecified, Airam Finley, FELLING MACHINE OPERATOR uncomplicated 12/18/2018 J44.9 Chronic obstructive pulmonary Airam Finley, FELLING MACHINE OPERATOR disease, unspecified Plan of Treatment Future Appointment(s):10/17/2019 2:30 pm - Luis Antonio Phillip M.D. at [facility]06/27/2019 12:15 pm - Benji Stevens LCSW at [facility] Internal Medicine - [facility]07/08/2019 1:40 pm - Rosales Reich M.D[facility] at [facility]/2020 11:00 am - Alexandria Kelly NP at [facility]12/18/2019 1:30 pm - Alexandria Kelly NP at [facility]06/17/2019 - Luis Antonio Phillip M.D.G40.909 Epilepsy, unspecified, not intractable, without status epilepticusNew Labs:Levetiracetam, Ordered: 06/17/19Valproic Acid, Ordered: 06/17/19CBC W/Auto Diff, Ordered: 06/17CMP Panel, Ordered: 06/17/19Follow up:Follow up in 4 monthsRecommendations: Call me 1 week after the labs are doneF31.9 Bipolar disorder, qaigrjbdfzuA08.9 Chronic obstructive pulmonary disease, odjgmisthosU90.210 Nicotine dependence, cigarettes, qtrqmnpjbyuaoM25.10 Alcohol abuse, uncomplicated Functional Status Description No Information Available Mental Status Description No Information Available Referrals Refer to Reason for Referral Status Appt Date Benji Stevens, CRYSTALIZER ETOH abuse Sent 04/04/2019 [address], [address] [place] [address] [phone]
--- OUTSIDE RECORDS SUMMARY | 2019-06-27 15:49 | XMS REPORT | Continuity of Care Document ---
:1955 External Reference #:[id number] Author Name Louie Lewis MD Address [address] [place] [address] Care Team Providers Name Role Phone Rosales Reich MD - Cardiovascular Care Team Information Metal Fabricator Helper [phone] Disease Juan Luis Joseph MD - Surgery Care Team Information Metal Fabricator Helper [phone] Kristen Adams - Vascular Surgery Care Team Information Metal Fabricator Helper [phone] [facility] [place] Emergency Room - Emergency Care Care Team Information Metal Fabricator Helper Visiting Nurse Services - Home Health Care Team Information Metal Fabricator Helper Louie Lewis MD - Family Care Team Information Metal Fabricator Helper [phone] Medicine Nasreen Servin - Pulmonary Disease Care Team Information Metal Fabricator Helper Alexandria Barks[place] ([facility]) - Care Team Information Metal Fabricator Helper Surgery of the Hand [facility] [place] Pain Clinic - Interventional Pain Care Team Information Metal Fabricator Helper [phone] Luis Antonio Robison MD - Neurology Care Team Information [employer]ator Helper Problems Active Problems Provider Date Peripheral vascular [...] M.D. Onset: 10/26/2016 Atherosclerotic heart disease of [place] coronary Kellee Bangura M.D. Onset: artery without [...] pain Belsomra one by mouth 30tabs Jamar Maqruez, 03/20/2019 20mg Tablets nightly as M.D. needed for insomnia Oxycodone-Acetaminophe take one by 120tabs Louie Schafer 02/14/2019 n mouth every 6 MD Debbie 7.5-325mg Tablets hours as needed for pain Lorazepam take 1 tablet by 15tabs Nato Mcleod, 02/07/2019 1mg Tablets mouth three M.D. times a day daily as needed for anxiety Tamsulosin HCL take one capsule 30caps E87.1 Kellee Bagnura, 08/22/2018 0.4mg by mouth once M.D. Capsules [...] daily Unknown 62.5mcg/Inh Aerosol Divalproex Sodium ER take three 90tabs Casandra Gunderson tablets by mouth JEFFREY Michelle 500mg Tablets ER 24HR once daily in the morning History Medications Hydrocodone-Acetaminophen 1 by mouth 21tabs Karena Romeo 01/01/2019 - 5-325mg Tablets every 8 hours JEFFREY Cantor 03/21/2019 as needed Fluticasone Propionate 1 spray each 16gm Casandra Gunderson 11/23/2018 - 50mcg/Act Suspension nostril every JEFFREY Michelle 12/04/2018 day-generic Digoxin 1 by mouth Louie Schafer 11/13/2018 - 250mcg Tablets every day MD Debbie 11/13/2018 Hydrocodone-Acetaminophen 1 tab by 21tabs S01.0 Louie Rios. 11/13/2018 - 10-325mg Tablets mouth every 8 1xD MD Debbie 2018 hours as needed Immunizations CPT Code Status Date Vaccine Lot # [id number] Given 04/05/2018 Pneumococcal Immunization [id number] Given 04/05/2018 Influenza Vac, Quadrivalent, Slit Virus, Im [id number] Given 05/18/2016 Influenza Vac, Quadrivalent, Slit Virus, Im [id number] Given 05/31/2015 Influenza Vac, Quadrivalent, Slit Virus, Im [id number] Given 05/05/2014 Pneumococcal Conjugate [id number] Given 03/25/2012 DO Not Use Split Influenza Virus Vaccine Vital Signs Date Vital Result Comment 05/14/2019 5:57pm BP Systolic 100 mmHg BP Diastolic 68 mmHg Heart Rate 70 /min Body Temperature 97.0 F Respiratory Rate 18 /min Height 68.5 inches 5'8.50" Weight 154.00 lb BMI (Body Mass Index) 23.1 kg/m2 04/30/2019 12:41pm BP Systolic 100 mmHg BP Diastolic 78 mmHg Heart Rate 80 /min Body Temperature 97.7 F Respiratory Rate 18 /min Height 68.5 inches 5'8.50" Weight 157.00 lb BMI (Body Mass Index) 23.5 kg/m2 Results Test Date Facility Test Result H/L Range Note Arterial Blood Gas 05/06/2019 [facility] [place] PH Arterial 7.53 High 7.35-7.45 Pco2 Arterial 36 mmHg Normal 35-45 Po2 Arterial 76 mmHg Low 80-100 O2 Saturation Arterial 97.7 % Normal 94.0-98.0 Base Excess Arterial 7.1 mmol/L High -2.0-2.0 1 Hco3 Arterial 30.4 mmol/L Normal 19-31 Laboratory test finding 05/06/2019 [facility] [place] Blood Culture SEE RESULT BELOW 2 Pediatric Blood Culture SEE RESULT BELOW 3 CBC Auto Diff 05/06/2019 [facility] [place] White Blood Count 6.4 10^3/uL Normal 3.5- 10.8 Red Blood Count 4.53 10^6/uL Normal 4.18-5.48 Hemoglobin 14.4 g/dL Normal 14.0-18.0 Hematocrit 42 % Normal 42-52 Mean Corpuscular Volume 93 fL Normal 80-94 Mean Corpuscular Hemoglobin 32 pg High 27-31 Mean Corpuscular HGB Conc 34 g/dL Normal 31-36 Red Cell Distribution Width 16 % High 10-15 Platelet Count 226 10^3/uL Normal 150-450 Mean Platelet Volume 7.6 fL Normal 7.4-10.4 Abs Neutrophils 4.4 10^3/uL Normal 1.5-7.7 Abs Lymphocytes 1.1 10^3/uL Normal 1.0-4.8 Abs Monocytes 0.6 10^3/uL Normal 0-0.8 Abs Eosinophils 0.3 10^3/uL Normal 0-0.6 Abs Basophils 0.0 10^3/uL Normal 0-0.2 Abs Nucleated RBC 0.0 10^3/uL Granulocyte % 67.9 % Lymphocyte % 17.2 % Monocyte % 9.0 % Eosinophil % 5.2 % Basophil % 0.7 % Nucleated Red Blood Cells % 0.0 Inr/Protime 05/06/2019 [facility] [place] Inr 1.09 Normal 0.82-1.09 4 Comp Metabolic Panel 05/06/2019 [facility] [place] Sodium 131 mmol/L Low 135-145 Potassium 4.0 mmol/L Normal 3.5-5.0 Chloride 95 mmol/L Low 101-111 Co2 Carbon Dioxide 28 mmol/L Normal 22-32 Anion Gap 8 mmol/L Normal 2-11 Glucose 70 mg/dL Normal 70-100 Blood Urea Nitrogen 12 mg/dL Normal 6-24 Creatinine 0.76 mg/dL Normal 0.67-1.17 BUN/Creatinine Ratio 15.8 Normal 8-20 Calcium 9.7 mg/dL Normal 8.6-10.3 Total Protein 7.4 g/dL Normal 6.4-8.9 Albumin 4.0 g/dL Normal 3.2-5.2 Globulin 3.4 g/dL Normal 2-4 Albumin/Globulin Ratio 1.2 Normal 1-3 Total Bilirubin 0.60 mg/dL Normal 0.2-1.0 Alkaline Phosphatase 85 U/L Normal 34-104 Alt 7 U/L Normal 7-52 Ast 14 U/L Normal 13-39 Egfr Non- 103.3 >60 Egfr 124.9 >60 5 Laboratory test finding 05/06/2019 [facility] [place] Troponin I 0.00 ng/mL <0.04 6 B-Type Natriuretic Peptide BNP 865 pg/mL High <=100 Lactic Acid 1.1 mmol/L Normal 0.5-2.0 7 Alcohol < 10 mg/dL Normal <10 Basic Metabolic Profile 04/17/2019 [facility]) Sodium 123 mEq/L Low 134-149 8 Potassium 4.4 mEq/L 3.6-5.5 Chloride 94 mEq/L 94-112 Carbon Dioxide 23 mEq/L 21-32 Glucose 110 mg/dL High 70-105 BUN 16 mg/dL 6-26 Creatinine 0.8 mg/dL 0.6-1.4 BUN/Creat Ratio 20.0 CALC 8.0-36.0 Calcium 9.2 mg/dL 8.6-10.2 GFR Non- >60 ml/min/1.73m^ >=60 GFR >60 ml/min/1.73m^ >=60 Laboratory test finding 04/11/2019 [facility] [place] Alcohol 32 mg/dL High <10 Laboratory test finding 04/11/2019 [facility] [place] Troponin I 0.01 ng/mL <0.04 9 Lactic Acid 1.0 mmol/L Normal 0.5-2.0 10 Comp Metabolic Panel 04/11/2019 [facility] [place] Sodium 127 mmol/L Low 135-145 Potassium 4.4 [...] Egfr Non- 109.9 >60 Egfr 133.0 >60 11 CBC Auto Diff 04/11/2019 [facility] [place] White Blood Count 5.0 10^3/uL Normal 3.5- [...] % Nucleated Red Blood Cells % 0.1 CBC Auto Diff 04/07/2019 [facility] [place] White Blood Count 9.3 10^3/uL Normal 3.5- [...] Cells % 0.0 Comp Metabolic Panel 04/07/2019 [facility] [place] Potassium 4.2 mmol/L Normal 3.5-5.0 Chloride 86 [...] Egfr Non- 95.9 >60 Egfr 116.1 >60 12 Sodium 119 mmol/L Critical low 135-145 13 Anion Gap 9 mmol/L Normal 2-11 Laboratory test finding 04/07/2019 [facility] [place] Acetaminophen < 15 g/mL 14 Alcohol < 10 mg/dL Normal <10 Salicylate < 2.50 mg/dL <30 TSH (Thyroid Stim Horm) 6.31 mcIU/mL High 0.34-5.60 Urinalysis Profile 04/07/2019 [facility] [place] Urine Color Yellow Urine Appearance Clear Urine Specific [place] 1.018 Normal 1.010-1.030 Urine pH 6.0 Normal 5-9 Urine Urobilinogen Negative Negative Urine Ketones Trace Abnormal Negative Urine Protein Negative Negative Urine Leukocytes Negative Negative Urine Blood Negative Negative Urine Nitrite Negative Negative Urine Bilirubin Negative Negative Urine Glucose Negative Negative Urine Drug SCR ED 04/07/2019 [facility] [place] Urine Amphetamine None Detected None Detect & Pain Clinic Screen Urine Barbiturates Screen None Detected None Detect Urine Benzodiazepine Screen Presumptive Posi <SEE NOTE> Abnormal None Detect 15 Urine Cannabinoids Screen None Detected None Detect Urine Cocaine Screen None Detected None Detect Urine Opiates Screen None Detected None Detect Urine Phencyclidine Screen None Detected None Detect 16 Laboratory test finding 04/07/2019 [facility] [place] < 0.10 mmol/L Low 0.6-1.2 Digoxin 1.2 ng/ml Normal 0.8-2.0 Osmolality Serum 256 mOsm/kg Low 275-295 Laboratory 03/06/2019 [facility] Valproic Acid 33 ug/mL Low 50-100 17, 18 test finding [address] [facility] (Depakote)(R),[place] [address] (607)- - Levetiracetam (Keppra), S 30.3 ug/mL 10.0-40.0 19 CBC Electronic Fma 03/06/2019 [facility] WBC 6.0 x10^3/UL 4.0- 10.0 RBC 4.12 x10^6/UL 3.93-6.00 HGB 13.0 g/dL 12.0-17.0 HCT 38 % 35-50 MCV 92.7 fL 80.0-95.0 MCH 31.6 pg 25.6-32.2 MCHC 34.0 g/dL 32.2-36.0 RDW-CV 14.8 % High 11.6-14.4 PLT 230 x10^3/UL 163-400 MPV 10.7 fL 9.4-12.4 Garret# 3.99 x10^3/UL 1.56-6.13 Lymph# 1.24 x10^3/UL 1.18-3.74 [place]# 0.61 x10^3/UL 0.24-0.82 Eos # 0.1 x10^3/UL 0.0-0.5 Baso # 0.04 x10^3/UL 0.01-0.08 Garret% 66.1 % 34.0-70.0 Lymph % 20.5 % 20.0-52.0 [place]% 10.1 % 5.0-12.0 Eos% 2.3 % 0.7-7.0 Baso% 0.7 % 0.1-1.2 Comprehensive Metabolic 03/06/2019 [facility] Sodium 132 mEq/L Low 134-149 20 Prof Potassium 4.9 mEq/L 3.6-5.5 Chloride 98 [...] >60 ml/min/1.73m^ >=60 CBC Auto Diff 03/04/2019 [facility] [place] White Blood Count 7.1 10^3/uL Normal 3.5- [...] Cells % 0.0 Laboratory test finding 03/04/2019 [facility] [place] Ammonia 31 mcmol/L Normal 16-53 Comp Metabolic Panel 03/04/2019 [facility] [place] Sodium 132 mmol/L Low 135-145 Potassium 3.9 [...] Egfr Non- 101.7 >60 Egfr 123.1 >60 21 Laboratory test finding 03/04/2019 [facility] Levetiracetam (Keppra) 35.9 g/mL 22 Laboratory test finding 03/01/2019 [facility] Acetaminophen < 15 g/mL 23 Alcohol < 10 mg/dL Normal <10 Levetiracetam (Keppra) 60.3 g/mL Abnormal 24 Comp Metabolic Panel 03/01/2019 [facility] [place] Sodium 128 mmol/L Low 135-145 Potassium 3.7 [...] Egfr Non- 51.9 >60 Egfr 62.8 >60 25 CBC Auto Diff 03/01/2019 [facility] [place] White Blood Count 5.3 10^3/uL Normal 3.5- [...] ml/min/1.73m^ >=60 CBC Electronic (Fma New) 02/27/2019 [facility] WBC 5.62 4.0-10.0 (607)- - RBC 4.48 [...] 02/27/2019 [facility] Ammonia, Plasma 58 g/dL 27-102 26 finding [address] [place] [address] (607)- - Urinalysis Profile 02/18/2019 [facility] [place] Urine Color Yessica Urine Appearance Clear Urine Specific [place] 1.017 Normal 1.010-1.030 Urine pH 7.0 Normal 5-9 Urine Urobilinogen Positive Abnormal Negative Urine Ketones Trace Abnormal Negative Urine Protein Negative Negative Urine Leukocytes Negative Negative Urine Blood Negative Negative Urine Nitrite Negative Negative Urine Bilirubin Negative Negative Urine Glucose Negative Negative Laboratory test finding 02/18/2019 [facility] [place] Magnesium 1.5 mg/dL Low 1.9-2.7 Creatine Kinase(CK) 60 U/L Normal 10-223 C Reactive Protein 72.96 mg/L High <8.01 Alcohol < 10 mg/dL Normal <10 Comp Metabolic Panel 02/18/2019 [facility] [place] Sodium 130 mmol/L Low 135-145 Potassium 3.6 [...] Egfr Non- 93.3 >60 Egfr 112.9 >60 27 Laboratory test finding 02/18/2019 [facility] [place] Troponin I 0.01 ng/mL <0.04 28 Inr/Protime 02/18/2019 [facility] [place] Inr 1.20 High 0.82-1.09 29 Laboratory test finding 02/18/2019 [facility] [place] Ammonia 69 mcmol/L High 16-53 Lactic Acid 0.8 mmol/L Normal 0.5-2.0 30 CBC Auto Diff 02/18/2019 [facility] [place] White Blood Count 5.6 10^3/uL Normal 3.5- [...] % 0.0 Urine Drug SCR ED 02/18/2019 [facility] [place] Urine Amphetamine None Detected None Detect & Pain Clinic Screen Urine Barbiturates Screen None Detected None Detect Urine Benzodiazepine Screen Presumptive Posi <SEE NOTE> Abnormal None Detect 31 Urine Cannabinoids Screen Presumptive Posi <SEE NOTE> Abnormal None Detect 32 Urine Cocaine Screen None Detected None Detect Urine Opiates Screen None Detected None Detect Urine Phencyclidine Screen None Detected None Detect 33 Laboratory test 02/18/2019 [facility] [place] MRSA/S. aureus SEE RESULT 34 finding Ssti PCR BELOW Wound Culture/Sensi 02/18/2019 [facility] [place] Wound/Misc SEE RESULT 35 Culture-Gram BELOW Stain Laboratory test 01/19/2019 [facility] [place] Digoxin 1.3 ng/ml Normal 0.8-2.0 finding Valproic Acid (Depakene) 92.0 g/mL Normal 50-100 Alcohol < 10 mg/dL Normal <10 Comp Metabolic Panel 01/19/2019 [facility] [place] Sodium 129 mmol/L Low 135-145 Potassium 4.1 [...] Egfr Non- 57.8 >60 Egfr 69.9 >60 36 Laboratory test 01/19/2019 [facility] [place] Partial Thrombo 31.5 seconds Normal 26.0- 38.0 finding Time PTT Inr/Protime 01/19/2019 [facility] [place] Inr 1.08 Normal 0.82-1.09 37 Type & Screen 01/19/2019 [facility] [place] Patient Blood AB Negative Type Antibody Screen NEGATIVE CBC Auto Diff 01/19/2019 [facility] [place] White Blood Count 4.0 10^3/uL Normal 3.5- [...] mEq/L 21-32 Glucose 157 mg/dL High 70-105 38 BUN 7 mg/dL 6-26 Creatinine 0.8 mg/dL [...] 01/13/2019 [facility] Valproic Acid 87 ug/mL 50-100 39, 40 test finding [address] [facility] (Depakote)(R),[place] [address] (607)- - CBC Electronic 01/13/2019 [facility] WBC 5.28 4.0-10.0 (Fma New) (607)- - [...] Basophil% 0.4 % 0-1.2 Laboratory test 12/18/2018 [facility] [place] Digoxin 0.6 ng/ml Low 0.8-2.0 finding Urine Drug SCR ED 12/18/2018 [facility] [place] Urine Amphetamine None Detected None Detect & Pain Clinic Screen Urine Barbiturates Screen None Detected None Detect Urine Benzodiazepine Screen None Detected None Detect Urine Cannabinoids Screen None Detected None Detect Urine Cocaine Screen None Detected None Detect Urine Opiates Screen None Detected None Detect Urine Phencyclidine Screen None Detected None Detect 41 Urinalysis Profile 12/18/2018 [facility] [place] Urine Color Yellow Urine Appearance Cloudy Urine Specific [place] 1.006 Low 1.010-1.030 Urine pH 7.0 Normal 5-9 Urine Urobilinogen Negative Negative Urine Ketones Negative Negative Urine Protein Negative Negative Urine Leukocytes Negative Negative Urine Blood Negative Negative Urine Nitrite Negative Negative Urine Bilirubin Negative Negative Urine Glucose Negative Negative Laboratory test finding 12/18/2018 [facility] [place] Acetaminophen < 15 g/mL 42 Alcohol 67 mg/dL High <10 Salicylate < 2.50 mg/dL <30 TSH (Thyroid Stim Horm) 4.04 mcIU/mL Normal 0.34-5.60 Comp Metabolic Panel 12/18/2018 [facility] [place] Sodium 129 mmol/L Low 135-145 Potassium 4.0 [...] Egfr Non- 78.2 >60 Egfr 94.6 >60 43 CBC Auto Diff 12/18/2018 [facility] [place] White Blood Count 5.3 10^3/uL Normal 3.5- [...] Cells % 0.1 Laboratory test finding 12/18/2018 [facility] [place] Ammonia 50 mcmol/L Normal 16-53 B-Type Natriuretic Peptide BNP 248 pg/mL High <=100 Laboratory 12/16/2018 [facility] Valproic Acid 44 ug/mL Low 50-100 44, 45 test finding [address] [facility] (Depakote)(R),[place] [address] (185)- - Levetiracetam (Keppra), S 53.5 ug/mL High 10.0-40.0 46 Inr/Protime 11/24/2018 [facility] [place] Inr 1.11 High 0.82-1.09 47 Laboratory test 11/24/2018 [facility] [place] D Dimer 932 ng/mL High Less Than 230 48 finding Quantitative Arterial Blood Gas 11/24/2018 [facility] [place] PH Arterial 7.41 Normal 7.35-7.45 Pco2 Arterial 36 mmHg Normal 35-45 Po2 Arterial 89 mmHg Normal 80-100 O2 Saturation Arterial 98.3 % High 94.0-98.0 Base Excess Arterial -1.4 mmol/L Normal -2.0-2.0 49 Hco3 Arterial 23.7 mmol/L Normal 19-31 Laboratory test 11/24/2018 [facility] [place] Lactic Acid 0.8 mmol/L Normal 0.5-2.0 50 finding CBC Auto Diff 11/24/2018 [facility] [place] White Blood Count 6.6 10^3/uL Normal 3.5- [...] Blood Cells % 0.1 Laboratory test 11/24/2018 [facility] [place] B-Type Natriuretic 501 pg/mL High <=100 finding Peptide BNP Sputum Culture & 11/24/2018 [facility] [place] Sputum Culture SEE RESULT 51 Sensitiv Gram Stain BELOW Comp Metabolic 11/24/2018 [facility] [place] Sodium 124 mmol/L Low 135-145 Panel Potassium [...] Egfr Non- 91.0 >60 Egfr 110.2 >60 52 Laboratory test finding 11/24/2018 [facility] C Reactive Protein 32.52 mg/L High <8.01 Troponin I 0.01 ng/mL <0.04 53 Valproic Acid (Depakene) 35.0 g/mL Low 50-100 Alcohol < 10 mg/dL Normal <10 Blood Culture SEE RESULT BELOW 54 1 Reference ranges based on room air. 2 SEE RESULT BELOW Name: GILDA CORTEZ : [address]: Zuri Soriano MD Acct: [id number] Unit: [id number] AGE: 64 Location: ED Re05/05/19 SEX: M Status: DEP ER SPEC: [id number] SIENA: 05/06/[address] [facility] [address]: Zuri Soriano MD REQ: [id number] RECD: 05/06/19 STATUS: RES [facility] DR: Louie Lewis MD _ SOURCE: BLOOD,VENO SPDESC: ORDERED: Blood Cult Procedure Result Reported Site Aerobic Culture Bottle Preliminary 05/07/19240 ML No Growth Day 1 Anaerobic Culture Bottle Preliminary 05/07/19240 ML No Growth Day 1 * ML - Main Lab . END OF REPORT DEPARTMENT OF PATHOLOGY, [address] [place] [address] Alirio Hawkins M.D. Director [facility] # [id number] 3 SEE RESULT BELOW Name: GILDA CORTEZ : [address]: Zuri Soriano MD Acct: [id number] Unit: [id number] AGE: 64 Location: ED Re05/05/19 SEX: M Status: DEP ER SPEC: [id number] SIENA: 05/06/[address]: Zuri Soriano MD REQ: [id number] RECD: 05/06/19 STATUS: MICHAEL GANT DR: Louie Lewis MD _ SOURCE: BLOOD,VENO [facility]: ORDERED: Blood Cult, Pediatric Bottl Procedure Result Reported Site Pediatric Blood Culture Final 05/11/19- 238 ML No Growth Day 5 * ML - Main Lab . END OF REPORT DEPARTMENT OF PATHOLOGY, [address] [place] [address] Alirio Hawkins M.D. Director [facility] # [id number] 4 Standard intensity warfarin therapeutic range: 2.0-3.0 High intensity warfarin therapeutic range: 2.5-3.5 5 Because ethnic data is not always [...] 5 Kidney failure <15 (or dialysis) 6 Troponin-I testing on Plasma Separator Tubes (PST) has a known false positive rate of 0.20-0.40%. All positive troponins reflex immediately to secondary confirmatory testing. Using the Entigo DxI 800 Access Immunoassay systems, the 99th percentile upper reference limit was demonstrated to be < 0.03 ng/mL. 7 [facility] Severe Sepsis and Septic Shock Management Bundle Measure requires all lactic acids initially measuring >2.0 mmol/L be repeated. 8 RESULTS VERIFIED BY REPEAT ANALYSIS 9 Troponin-I testing on Plasma Separator Tubes (PST) has a known false positive rate of 0.20-0.40%. All positive troponins reflex immediately to secondary confirmatory testing. Using the Unicim3D DxI 800 Access Immunoassay systems, the 99th percentile upper reference limit was demonstrated to be < 0.03 ng/mL. 10 [facility] Severe Sepsis and Septic Shock Management Bundle Measure requires all lactic acids initially measuring >2.0 mmol/L be repeated. 11 Because ethnic data is not always [...] 5 Kidney failure <15 (or dialysis) 12 Because ethnic data is not always [...] failure <15 (or dialysis) 13 Critical Result [id number] Called to [id number] at: 14:03:53 by:[id number] Read back by:[id number] 14 Therapeutic concentration: <50 ug/mL Toxic concentration: >120 ug/mL 15 Presumptive Positive Presumptive positive results are unconfirmed. 16 The urine specimen was tested at the listed cutoffs: Drug class test level (ng/mL) Amphetamines 500 Barbiturates 200 Benzodiazepine metabolites 200 Cocaine metabolites 150 Cannabinoids 50 Opiates 300 Pcp 25 Specimen was received without chain of custody. Results should be used for medical purposes only. 17 1 serum pour off from red top tube 18 Detection Limit = 4 <4 indicates None Detected Toxicity may occur at levels of 100-500. Measurements of free unbound valproic acid may improve the assess- ment of clinical response. 19 This test was developed and its performance characteristics determined by [employer]. It has not been cleared or approved by the Food and Drug Administration. 20 RESULTS VERIFIED BY REPEAT ANALYSIS 21 Because ethnic data is not always [...] 5 Kidney failure <15 (or dialysis) 22 REFERENCE VALUE 12.0 - 46.0 ADDITIONAL INFORMATION This test was developed and its performance characteristics determined by [facility] in a manner consistent with CLIA requirements. This test has not been cleared or approved by the U.S. Food and Drug Administration. Test Performed by: [facility] [employer] [facility] [employer] [address] [place] [id number] 23 Therapeutic concentration: <50 ug/mL Toxic concentration: >120 ug/mL 24 REFERENCE VALUE 12.0 - 46.0 ADDITIONAL INFORMATION This test was developed and its performance characteristics determined by [facility] in a manner consistent with CLIA requirements. This test has not been cleared or approved by the U.S. Food and Drug Administration. Test Performed by: [facility] [employer] [facility] [employer] [address] [place] [id number] 25 Because ethnic data is not always [...] 5 Kidney failure <15 (or dialysis) 26 FROZEN 27 Because ethnic data is not always readily [...] 15-29 5 Kidney failure <15 (or dialysis) 28 Troponin-I testing on Plasma Separator Tubes (PST) has a known false positive rate of 0.20-0.40%. All positive troponins reflex immediately to secondary confirmatory testing. Using the Entigo DxI 800 Access Immunoassay systems, the 99th percentile upper reference limit was demonstrated to be < 0.03 ng/mL. 29 Standard intensity warfarin therapeutic range: 2.0-3.0 High intensity warfarin therapeutic range: 2.5-3.5 30 [facility] Severe Sepsis and Septic Shock Management Bundle Measure requires all lactic acids initially measuring >2.0 mmol/L be repeated. 31 Presumptive Positive Presumptive positive results are unconfirmed. 32 Presumptive Positive Presumptive positive results are unconfirmed. 33 The urine specimen was tested at the listed cutoffs: Drug class test level (ng/mL) Amphetamines 500 Barbiturates 200 Benzodiazepine metabolites 200 Cocaine metabolites 150 Cannabinoids 50 Opiates 300 Pcp 25 Specimen was received without chain of custody. Results should be used for medical purposes only. 34 SEE RESULT BELOW Name: GILDA CORTEZ : [address]: William Bangura MD Acct: [id number] Unit: [id number] AGE: 64 Location: [place] [address]- Re02/18/19 SEX: M Status: ADM IN SPEC: [id number] SIENA: 02/18/19-[address] [facility] [address]: Shruti CHAU REQ: [id number] RECD: 02/18/19-1037 STATUS: MICHAEL GANT DR: Anahi [...] . END OF REPORT DEPARTMENT OF PATHOLOGY, [address] [place] [address] Alirio Hawkins M.D. Director [facility] # [id number] 35 SEE RESULT BELOW Name: GILDA CORTEZ : [address]: Aurora Fitzgerald DO Acct: [id number] Unit: [id number] AGE: 64 Location: [place] [id number] Re02/18/19 SEX: M Status: ADM IN SPEC: [id number] SIENA: 02/18/19-[address] [facility] [address]: Shruti CHAU REQ: [id number] RECD: 02/18/19 STATUS: RES OTHR DR: Anahi Lewis MD _ SOURCE: WOUND SPDESC:OTHER ORDERED: Culture Stain COMMENTS: R FOOT ULCER QUERIES: Specimen Description R FOOT ULCER Procedure Result Reported Site Wound/Misc Gram Stain Final 02/18/19- 1618 ML 1+ Epithelial Cells 2+ Neutrophils 1+ Gram Positive Cocci Wound/Misc Culture PENDING * ML - Main Lab . END OF REPORT DEPARTMENT OF PATHOLOGY, [address] [place] [address] Alirio Hawkins M.D. Director [facility] # [id number] 36 Because ethnic data is not always [...] 5 Kidney failure <15 (or dialysis) 37 Standard intensity warfarin therapeutic range: 2.0-3.0 High intensity warfarin therapeutic range: 2.5-3.5 38 NON-FASTING 39 1 serum pour off from red top tube 40 Detection Limit = 4 <4 indicates None Detected Toxicity may occur at levels of 100-500. Measurements of free unbound valproic acid may improve the assess- ment of clinical response. 41 The urine specimen was tested at the listed cutoffs: Drug class test level (ng/mL) Amphetamines 500 Barbiturates 200 Benzodiazepine metabolites 200 Cocaine metabolites 150 Cannabinoids 50 Opiates 300 Pcp 25 Specimen was received without chain of custody. Results should be used for medical purposes only. 42 Therapeutic concentration: <50 ug/mL Toxic concentration: >120 ug/mL 43 Because ethnic data is not always [...] 5 Kidney failure <15 (or dialysis) 44 2 serum pour offs from red top tubes 45 Detection Limit = 4 <4 indicates None Detected Toxicity may occur at levels of 100-500. Measurements of free unbound valproic acid may improve the assess- ment of clinical response. 46 This test was developed and its performance characteristics determined by [employer]. It has not been cleared or approved by the Food and Drug Administration. 47 Standard intensity warfarin therapeutic range: 2.0-3.0 High intensity warfarin therapeutic range: 2.5-3.5 48 Please note: The following may produce a false positive D Dimer test: - Rheumatoid factor greater than 60 IU/ml - Plasma hemoglobin greater than 0.05 gm/dl - Bilirubin greater than 50 mg/dl - Lipids greater than 1000 mg/dl - FDP greater than 20 ug/ml 49 Reference ranges based on room air. 50 [facility] Severe Sepsis and Septic Shock Management Bundle Measure requires all lactic acids initially measuring >2.0 mmol/L be repeated. 51 SEE RESULT BELOW Name: CORTEZGILDA : [address]: William Bangura MD Acct: [id number] Unit: [id number] AGE: 63 Location: [place] [address] Re11/24/18 SEX: M Status: ADM IN SPEC: [id number] SIENA: 11/24/[address] [facility] [address]: Aung Alexander MD REQ: [id number] RECD: 11/24/18 STATUS: RES [facility] DR: Louie Lewis MD _ SOURCE: SPUTUM,EXP SPDESC: ORDERED: Sputum Cult/GS Procedure Result Reported Site Sputum Smear Final 11/24/18- 1005 ML 2+ Neutrophils 2+ Nucleated Cells 1+ Epithelial Cells Mixed Morphotypes, resembling Normal Kannan Sputum Culture Preliminary 11/26/18- 1325 ML Organism 1 ENTEROBACTER SPECIES Quantity 1+ * ML - Main Lab . END OF REPORT DEPARTMENT OF PATHOLOGY, [address] [place] [address] Alirio Hawkins M.D. Director [facility] # [id number] 52 Because ethnic data is not always readily [...] 15-29 5 Kidney failure <15 (or dialysis) 53 Troponin-I testing on Plasma Separator Tubes (PST) has a known false positive rate of 0.20-0.40%. All positive troponins reflex immediately to secondary confirmatory testing. Using the [employer] DxI 800 Access Immunoassay systems, the 99th percentile upper reference limit was demonstrated to be < 0.03 ng/mL. 54 SEE RESULT BELOW Name: GILDA CORTEZ : [address]: William Bangura MD Acct: [id number] Unit: [id number] AGE: 63 Location: [place] [address] Re11/24/18 Dis: 11/27/18 SEX: M Status: DIS IN SPEC: [id number] SIENA: 11/24/[address] [facility] [address]: Aung Alexander MD REQ: [id number] RECD: 11/24/18 STATUS: COMP [facility] DR: Louie Lewis MD _ SOURCE: BLOOD,VENO SPDESC: ORDERED: Blood Cult Procedure Result Reported Site Aerobic Culture Bottle Final 11/29/18- 0857 ML No Growth Day 5 Anaerobic Culture Bottle Final 11/29/18- 0855 ML No Growth Day 5 * ML - Main Lab . END OF REPORT DEPARTMENT OF PATHOLOGY, [address] [place] [address] Alirio Hawkins M.D. Director [facility] # [id number] Procedures Date Code Description Status 03/26/2017 [id number] Colonoscopy Completed 03/19/2017 [id number] Colonoscopy Completed Medical Devices Description No Information Available Encounters Type Date Location Provider Dx Diagnosis Office Visit 04/30/2019 Main Office Louie Schafer F33.9 Major depressive 12:40p MD Debbie disorder, recurrent, unspecified G47.00 Insomnia, unspecified S82.51xD Disp fx of [facility], 7thD F10.20 Alcohol dependence, uncomplicated Office Visit 04/17/2019 11:20a Main Office Louie Schafer F33.9 Major depressive MD Debbie disorder, recurrent, unspecified G47.00 Insomnia, [...] anxiety disorder I25.10 Athscl heart disease of [place] coronary artery w/o ang pctrs G40.909 Epilepsy, [...] Office Louie Schafer I48.2 Chronic atrial MD eDbbie fibrillation I73.9 Peripheral vascular disease, unspecified G40.309 [...] object, init Assessments Date Code Description Provider 05/14/2019 F33.9 Major depressive disorder, recurrent, Louie Lewis MD unspecified 05/14/2019 G47.00 Insomnia, unspecified Louie Lewis MD 05/14/2019 F10.20 Alcohol dependence, uncomplicated oLuie Lewis MD 04/30/2019 F33.9 Major depressive disorder, recurrent, Louie [...] in right ankle and joints of right SIAC Barboza foot 02/27/2019 F10.20 Alcohol dependence, uncomplicated ISAC Barboza 02/27/2019 F41.1 Generalized anxiety disorder ISAC Barboza 02/27/2019 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[place] ISAC Barboza coronary artery with 02/27/2019 G40.909 [...] subsequent striking against other object, initial encounter Plan of Treatment Future Appointment(s):05/28/2019 2:20 pm - Louie Lewis MD at Main Dxbhfp9105/14/2019 - Louie Lewis MDF33.9 Major depressive disorder, recurrent, iundpqtloboF04.00 Insomnia, fpvtancuupxU86.20 Alcohol dependence, uncomplicatedAllComments:Medication Management Patient Understands medications he's taking? Yes [...] fibula and medial melleolus. LT [address] [place] [address] [phone] [facility] [place] [facility] [employer]UATE AND TREAT FOR PAIN MANAGEMENT Patient Declined [address] [facility] [address] [phone]
--- OUTSIDE RECORDS SUMMARY | 2019-06-27 15:49 | XMS REPORT | Summary of Care ---
:1955 Author Organization [facility] Address [address] [place] [address] Care Team Providers Name Role Phone Louie Lewis MD Primary Care Provider Reason for Visit Reason Comments Other Encounter Details Date Type Department Care Team Description 05/12/2019 Office Visit [facility] Kristen Adams, PAD ([facility] MD HEYDI disease) (Primary Dx) Department of Surgery, [facility] E [facility] Division of Vascular [address] [place], [place] Endovascular Services [address] [address] [phone] [place] [address] (Fax) [phone] Allergies No Known Allergiesdocumented as of this encounter (statuses as of 05/12/2019) Medications Medication Sig Dispensed Refills Start Date End Date Status levetiracetam (KEPPRA) Take 500 mg by 0 Active 500 MG tablet mouth Two Times Daily. divalproex (DEPAKOTE) Take 500 mg by 0 Active 500 MG EC tablet mouth Three times daily. digoxin (LANOXIN) Take 250 mcg by 0 Active 0.125 MG tablet mouth daily cilostazol (PLETAL) Take 100 mg by 0 Active 100 MG tablet mouth Two Times Daily diltiazem (CARDIZEM Take 120 mg by 0 Active CD) 120 MG 24 hr mouth daily capsule gabapentin (NEURONTIN) 600 mg Two Times 0 08/23/2017 Active 600 MG tablet Daily HYDROcodone-acetaminop 0 06/04/2017 Active hen (VICODIN) 10-325 MG per tablet metoprolol (TOPROL-XL) 0 07/19/2017 Active 25 MG 24 hr tablet sertraline (ZOLOFT) 0 07/27/2017 Active 100 MG tablet Fluticasone Inhale 1 puff into 0 Active Furoate-Vilanterol the lungs daily (BREO ELLIPTA) 100-25 MCG/INH AEPB budesonide-formoterol Inhale 2 puffs 0 Active (SYMBICORT) 160-4.5 into the lungs Two MCG/ACT inhaler Times Daily aspirin 81 MG tablet Take 81 mg by 0 Active mouth daily hydrOXYzine (ATARAX) Take 50 mg by 0 Active 50 MG tablet mouth every 6 (six) hours as needed for Anxiety Diclofenac Sodium Apply 2 g 0 Active (VOLTAREN) 1 % GEL topically Four times daily tiotropium (SPIRIVA Inhale 2 puffs 0 Active RESPIMAT) 2.5 MCG/ACT into the lungs AERS inhalation spray daily documented as of this encounter (statuses as of 05/12/2019) Active Problems Problem Noted Date Claudication in peripheral vascular disease 02/06/2014 documented as of this encounter (statuses as of 05/12/2019) Social History Tobacco Use Types Packs/Day Years Used Date Current Every Day Smoker Cigarettes 1.5 Tobacco Cessation: Ready to Quit: No; Counseling Given: Yes Alcohol Use Drinks/Week oz/Week Comments Yes 6 Cans of beer 6.0 once per week Sex Assigned at Date Recorded Not on file Job Start Date Occupation Industry Not on file Not on file Not on file Travel History Travel Start Travel End No recent travel history available. documented as of this encounter Last Filed Vital Signs Vital Sign Reading Time Taken Comments Blood Pressure 157/95 05/12/2019 3:15 PM EST Pulse 70 05/12/2019 3:15 PM EST Temperature - - Respiratory Rate 18 05/12/2019 3:15 PM EST Oxygen Saturation 97% 05/12/2019 3:15 PM EST Inhaled Oxygen Concentration - - Weight 71.2 kg (157 lb) 05/12/2019 3:15 PM EST Height 177.8 cm (5' 10") 05/12/2019 3:15 PM EST Body Mass Index 22.53 05/12/2019 3:15 PM EST documented in this encounter Progress Notes Kristen Adams MD - 05/12/2019 2:15 PM EST Subjective: Patient ID: Cristhian Cortez is a 64 y.o. male with extensive aortoiliac occlusive disease, hypertension, atrial fibrillation, mitral valve disease, idiopathic peripheral neuropathy, epilepsy, chronic obstructive lung disease, an 28-eueo-pesy history of smoking up to 1-1/2 packs per day, bipolar disorder, depression, alcoholism (drinking 6 beers per day), s/p Mitral Valve Repair, pacemaker implantation, cardiac catheterization (followed by Dr. Reich), who is also followed by Dr. Horton of Neurology who is here for follow up of his PAD and lifestyle limiting claudication. His follow up has been inconsistent. Previously he c/o significantly decreased walking distance and had worse NEIDA and I ordered A CTA Abd/ run off to assess his degree of progression of disease. Of note, he gets confused easily and had missed his CTA appt, had this rescheduled and despite my office sending him a letter with his appt and the office address, he gave the wrong address to the cab,went there and the door was locked, called the office and insisted that that was the address given, and had to be redirected to this office. He has been here before (Jun 2017) but today claims that hehad not and didn't remember being here before. He knew he was here for follow up after a study. Lee said he saw Dr. Garvey recently for an evaluation of his PAD, sent by his new PCP. He has beenfollowed by me since 2013 for his PAD and all notes have been sent to his PCP's office. He thinks he may have gone for another opinion but is not clear about this. I do not have any notes from Dr. Garvey. He said he recently changed his PCP again because of scheduling and now sees Dr. Louie Khan . I called the office today to speak with him to get further clarification but that office was closed and the service would not page him. I called Dr. Reich who is to call me back. He also now says Dr. Phillip is his Neurologist. My sense is that at times he is confused. He also said hehas not under care for his psychiatric condition because he has lost his private insurance, but he would like to have someone to help him with this. He sounds depressed and hopeless in the office today. His complaints today are bilateral (Right > Left) leg pain radiating up to his hip with ambulation at a short distance. He has neuropathy. He denies classic rest pain. He is not awakened at night with pain. He does say that in cold weather his symptoms are worse and when he walks a distance, hisleg gives out at a couple of hundred feet. He continues to take Pletal. He has not cut back on his drinking, smoking or marijuana use. He doesn't want to do so because he says it is "all he has, why bother". He wants his mental health issues addressed. He is here because he wants his vascular issues addressed and his mental health issues. He said that none of the things I had requested earlier had occurred. He was supposed to see his PCP because he is having issues with breathing. He will go the the hospital to be evaluated after this visit. Although I could offer him some form of revascularization for his aortic occlusion, he needs his medical situation optimized so he can be cleared by Cardiology, Pulmonary and Neurology. I last saw him in Aug 2017 and he was to have repeat NEIDA and see me in January. He did not keep that appt. He can hardly walk because his feet burn and he can walk about 50 feet- "all the way up to his waist". He has neuropathy in his feet and toes. He broke his right ankle after his leg "gave out" last February. He is here with a director case today. Chief Complaint: GUADALUPE Morrow has a past medical history of Anxiety and depression, Arrhythmia, Bipolar disorder, COLD (chronic obstructive lung disease), Heart murmur, History of epilepsy, History of seizure, Hypertension,Hypoglycemia, Leg pain, bilateral, Mitral valve disorder, PAD (peripheral artery disease), Peripheral neuropathy, Photosensitivity, Scleral hemorrhage, Shortness of breath, and Wears glasses. Cristhian has Claudication in peripheral vascular disease on their problem list. Cristhian has a past surgical history that includes Inguinal hernia repair (Left, 1995); Cardiac valvereplacement; pr left heart cath,percutaneous (12/28/2015); and pacemaker placement (04/16/2015). His family history includes Alcohol abuse in his father; Bipolar disorder in his father and mother; Dementia in his paternal grandmother. Cristhian reports that he has been smoking cigarettes. He has been smoking about 1.50 packs per day. He does not have any smokeless tobacco history on file. He reports current alcohol use of about 6.0 standard drinks of alcohol per week. He reports current drug use. Frequency: 7.00 times per week. Drug:Marijuana. Cristhian has a current medication list which includes the following prescription(s ): aspirin, budesonide-formoterol, cilostazol, diclofenac sodium, digoxin, diltiazem, divalproex, fluticasone furoate-vilanterol, gabapentin, hydrocodone- acetaminophen, hydroxyzine, levetiracetam, metoprolol, sertraline, and tiotropium. Current Outpatient Medications on File Prior to Visit Medication Sig Dispense Refill aspirin 81 MG tablet Take 81 mg by mouth daily budesonide-formoterol (SYMBICORT) 160-4.5 MCG/ACT inhaler Inhale 2 puffs into the lungs Two Times Daily cilostazol (PLETAL) 100 MG tablet Take 100 mg by mouth Two Times Daily Diclofenac Sodium (VOLTAREN) 1 % GEL Apply 2 g topically Four times daily digoxin (LANOXIN) 0.125 MG tablet Take 250 mcg by mouth daily diltiazem (CARDIZEM CD) 120 MG 24 hr capsule Take 120 mg by mouth daily divalproex (DEPAKOTE) 500 MG EC tablet Take 500 mg by mouth Three times daily. Fluticasone Furoate-Vilanterol (BREO ELLIPTA) 100-25 MCG/INH AEPB Inhale 1 puff into the lungs daily gabapentin (NEURONTIN) 600 MG tablet 600 mg Two Times Daily HYDROcodone-acetaminophen (VICODIN) 10-325 MG per tablet hydrOXYzine (ATARAX) 50 MG tablet Take 50 mg by mouth every 6 (six) hours as needed for Anxiety levetiracetam (KEPPRA) 500 MG tablet Take 500 mg by mouth Two Times Daily. metoprolol (TOPROL-XL) 25 MG 24 hr tablet sertraline (ZOLOFT) 100 MG tablet tiotropium (SPIRIVA RESPIMAT) 2.5 MCG/ACT AERS inhalation spray Inhale 2 puffs into the lungsdaily No current facility-administered medications on file prior to visit. Cristhian has No Known Allergies. Review of Systems All other systems reviewed and are negative. Objective: Physical Exam Constitutional: He is oriented to person, place, and time. He appears well- developed and well-nourished. HENT: Head: Normocephalic and atraumatic. Eyes: Pupils are equal, round, and reactive to light. Conjunctivae are normal. Neck: Normal range of motion. Neck supple. Cardiovascular: Normal rate. Right- PT, Peroneal monophasic; No AT signal Left- AT, PT, peroneal monophasic Musculoskeletal: Normal range of motion. General: No edema. Neurological: He is alert and oriented to person, place, and time. Skin: Skin is warm and dry. No rubor, no ulceration or skin changes. Psychiatric: He has a normal mood and affect. His behavior is normal. Judgment and thought content normal. Nursing note and vitals reviewed. Lab Review: [facility] CTA Abd Aorta with run off 09/05/17: Abd/ Pelvis: The aorta occludes at level L3/ L4 And is not significantly changed since previous CTA. The occlusion extends into the bilateral CIAs extending to the bifurcation of the EIA/ IIA on left. And the FOUR SLIDE MACHINE SETTER on the right. The inferior mesenteric artery is extremely hypertrophied and there is evidence of collateralized filling of the winsome-rectal arteries that are likely filling branches off the Internal iliac arteries. Bilaterally, the inferior epigastric arteries are greatly hypertrophied. Right leg: After the Right Common Femoral Artery fills by collateralized flow largely supplied by inferior epigastric artery and the deep circumflex iliac artery and to the lesser extend the superficial circumflex artery, there is eccentric coarse calcification at the common femoral artery causing at least 50% stenosis but from this point there is in line flow into the femoral profundus and proximal SFA. The right SFA occludes as it enters Manuel's Canal and reconstitutes via collaterals to provide in-line flow to the popliteal artery and infrapopliteal arteries. Single vessel arterial phase is provided by the right PT artery and likely a diminutive AT artery. Left Leg: Although it is diminutive, the right EIA appears to fill by reconstituted flow, likely by collateralized branches of the left internal iliac artery. From this point, there is in-line flow into the LeftCFA which exhibits augmentation via collateralized flow from the inferior epigastric artery and deepcircumflex femoral artery. The left SFA exhibits calcified atherosclerosis as it courses through Manuel's Canal but it appears that in-line flow is preserved in the popliteal artery and infra-popliteal arteries. The proximal infrapopliteal arteries. Run off in the Left lower leg is provided by the PTartery, likely supplemented by a relatively diminutive AT artery. Assessment: 1. PAD (peripheral artery disease) Plan: 1.) Although he has extensive aorto-iliac occlusive disease which could be addressed by a Right FOUR SLIDE MACHINE SETTER endarterectomy and Mjixr-qq-fwjxkjs bypass, the extent of his disease is stable since 2015. He has likely lost some collaterals which has caused progression of his claudication symptoms. His ongoing issues which complicate management predominently are his psychiatric disorders which limit his decision making at times, his clarity in conducting daily activities, and ability to address his social habits, all which would increase the complexity of repair and heighten his perioperative morbidity and mortality risks. Even in a reasonable risk patient, the risk of this procedure carries a 3-5% major complication rate and risk of mortality. With his cardiac and pulmonary conditions this risk is higher. He should be optimized with management of his psychiatric condition, cessation of smoking, cardiac, pulmonary and neurologic disorders before proceeding with this revascularization. He does not have rest pain or ulceration at this time; therefor does not have a limb threatening condition, although remains at risk. 2.) I would defer to his PCP and Pulmonology regarding the lung mass (LLL 12 mm nodule) which is slowly growing since identified 04/20/11. Needs new CTA but has to have Medical, Pulmonary, Neurology clearance. He will see me back in 2 months after seeing the other physicians and he will try to quit smoking. I'll see him in late July. He never got the NEIDA from 2018 so I'll order those. Once we get closerto medical optimization/ clearance, I'll order the repeat CTA Abd/ Pelvis that he will need. Total time spent during this encounter including review of record and available studies, obtaining history and performing the physical exam with recommendations was 45 minutes. documented in this encounter Plan of Treatment Health Maintenance Due Date Last Done Comments Hepatitis C Screening (B. 1955 [id number]) MMR Vaccines (1 of 1 - Standard [birth year]10/1956 series) Pneumococcal Vaccine: Pediatrics 1961 (0 to 5 Years) and At-Risk Patients (6 to 64 Years) (1 of 1 - PPSV23) HIV Screening 02/10/1968 Colon Cancer Screening 10 yrs 2005 Zoster Vaccines (1 of 2) 2005 DTaP,Tdap,and Td Vaccines (2 - Td) 06/14/2017 05/17/2017 Influenza Vaccine 04/08/2019 Pneumococcal Vaccine: 65+ Years (1 02/10/2020 of 2 - PCV13) HIB Vaccines Aged Out No longer eligible based on patient's age to complete this topic Hepatitis A Vaccines Aged Out No longer eligible based on patient's age to complete this topic Hepatitis B Vaccines Aged Out No longer eligible based on patient's age to complete this topic IPV Vaccines Aged Out No longer eligible based on patient's age to complete this topic Varicella Vaccines Aged Out No longer eligible based on patient's age to complete this topic documented as of this encounter Results Not on filedocumented in this encounter Visit Diagnoses Diagnosis PAD (peripheral artery disease) - Primary Peripheral vascular disease, unspecified documented in this encounter
--- OUTSIDE RECORDS SUMMARY | 2019-06-27 15:49 | XMS REPORT | Continuity of Care Document ---
:1955 External Reference #:[id number] Author Name Alexandria Kelly NP (transmitted by agent of provider Mari Montes) Address [address], [address] [place] [address] Care Team Providers Name Role Phone Genaro Valenzuela MD - Care Team Information Quenching Machine Operator [phone] Ophthalmology Clifford Ventura DPM - Foot Surgery Care Team Information Quenching Machine Operator Vipul Grant MD - Neurology Care Team Information Quenching Machine Operator John Fountain MD - Internal Care Team Information Quenching Machine Operator Medicine Ne Mckeon MD - Psychiatry Care Team Information Quenching Machine Operator Colten Vargas III, MD - Internal Care Team Information Quenching Machine Operator Medicine Jonathan An M.D. - Care Team Information Quenching Machine Operator [phone] Gastroenterology Problems Active Problems Provider Date Epilepsy Dereck Kirby M.D. Onset: 03/14/2011 Benign essential hypertension Dereck Kirby M.D. Onset: 03/14/2011 Idiopathic peripheral neuropathy Dereck Kirby M.D. Onset: 03/14/2011 Tobacco user Dereck Kirby M.D. Onset: 03/14/2011 Hypo-osmolality and or hyponatremia Dereck Kirby M.D. Onset: 03/14/2011 Hypoglycemia Dercek Kirby M.D. Onset: 03/14/2011 Visual disturbance Dereck [...] Smoker 1 Pack Daily Smoking Status Reviewed: 05/29/19 Current Cigarette 1 pack plus per day [...] Nebulizer 1 unit every 4 1units J44.9 [facility] 05/29/2019 Device hours, as needed JEFFREY Kelly Ipratropium 1 unit every 4-6 540ml J44.9 [facility] 05/29/2019 Jay/Albuterol hours as needed JEFFREY Kelly Sulfate 0.5-2.5(3)mg/3ML Solution Nicotine 1 patch on skin 30units F17.210 [facility] 05/29/2019 14mg/24HR every day JEFFREY Kelly Patches 24HR Nebulizer use every 4 hours 1units J44.9 [facility] 05/29/2019 Kit/Tubing/Mouthpiece as instructed JEFFREY Kelly Kit [...] Levetiracetam Take One Tablet 90tabs G40.909 Reg SBriseida 11/20/2017 750mg By Mouth Ramone Horton M.D. Tablets Times Daily Incruse Ellipta Use One 30units Nasreen Servin, 08/14/2017 Inhalation Every 62.5mcg/Inh Aerosol Day Breo Ellipta 1 puff inhaled 60units Nasreen Servin, 03/30/2015 daily 100-25mcg/Inh Aerosol Cilostazol 2 tabs by mouth Unknown 100mg once daily Tablets Fluticasone as needed Casandra Michelle Propionate A, N.P. 50mcg/Act Suspension Acetaminophen ER 1 by mouth twice Unknown 650mg a day Tablets ER Aripiprazole 1 by mouth every Unknown 5mg day Tablets Aspirin chew one tablet Unknown 81mg Chewtabs by mouth every day Divalproex Sodium Unknown 500mg Tablets DR Thiamine HCL 1 by mouth every Unknown 100mg day Tablets Brianasomrtoñito Lewis, 20mg Tablets Louie Rios MD Oxycodone-Acetaminoph Debbie, en Louie Rios MD 7.5-325mg Tablets History Medications Methylprednisolone 4mg Unknown 12/24/2018 - 2018 Tablets Medications Administered in Office Medication SIG Qnty Indications Ordering Provider Date Inj, Regadenoson, 0.1 MG Simone Barboza, DO [facility] 04/14/2015 Injection Inj, Regadenoson, 0.1 MG Rosales Reich M.D. 04/14/2015 Injection Technetium TC 99M Simone Barboza, DO [facility] 04/14/2015 Tetrofosmin, Per Unit Dose Up To 40 Millicuries Injection Technetium TC 99M Rosales Reich M.D. 04/14/2015 Tetrofosmin, Per Unit Dose Up To 40 Millicuries Injection Influenza Virus Vaccine Unknown 04/15/2014 Injection Immunizations CPT Code Status Date Vaccine Lot # [id number] Given 05/05/2014 Pneumococcal Conjugate Vaccine 13 Valent For [id number] Intramuscular Use Q2038 Given 03/25/2012 Fluzone Vaccine [id number] Vital Signs Date Vital Result Comment 05/29/2019 9:52am Height 69.5 inches 5'9.50" Weight 162.00 lb Heart Rate 54 /min BP Systolic 110 mmHg BP Diastolic 62 mmHg O2 % BldC Oximetry 90 % BMI (Body Mass Index) 23.6 kg/m2 03/24/2019 2:08pm Height 69.5 inches 5'9.50" Weight 158.00 lb Heart Rate 72 /min BP Systolic 124 mmHg BP Diastolic 78 mmHg BMI (Body Mass Index) 23.0 kg/m2 Results Description No Information Available Procedures Date Code Description Status 03/24/2019 14468 Pace Maker Eval W/Iterative Adjment Dual Lead Completed 03/24/2019 67500 Pace Maker Eval W/Iterative Adjment Dual Lead Completed 02/04/2019 32400 Walking Cast Completed 01/20/2019 73842 ORIF Open TX Bimalleolar Ankle FX Includes Internal Completed Fixation 01/20/2019 23118 ORIF Open TX Bimalleolar Ankle FX Includes Internal Completed Fixation 01/10/2019 02608 EKG Tracing & Interpretation Completed 01/10/2019 78042 EKG Tracing & Interpretation Completed 12/25/2018 57732 EKG Tracing & Interpretation Completed 12/18/2018 11917 EKG, Interpretation Only Completed 07/09/2004 [id number] Colonoscopy Completed Medical Devices Description No Information Available Encounters Type Date Location Provider Dx Diagnosis Office Visit 04/09/2019 [facility] Ivan Sanabria, E87.1 Hypo- osmolality and 12:27p Assoctal hyponatremia Hospitalists F31.9 Bipolar disorder, unspecified B37.0 Candidal stomatitis R45.851 Suicidal ideations Office Visit 04/08/2019 [facility] E87.1 Hypo-osmolality and 12:26p Assoctal NP hyponatremia Hospitalists R45.851 Suicidal ideations I95.9 Hypotension, unspecified F10.10 Alcohol abuse, uncomplicated Office Visit 04/07/2019 [facility] E87.1 Hypo-osmolality and 12:25p Assoctal NP hyponatremia Hospitalists R45.851 Suicidal ideations F31.9 Bipolar disorder, unspecified Office Visit 03/24/2019 [place] Jose D F10.10 Alcohol abuse, 2:00p Neurologic Hargrove, N.P. uncomplicated [facility] I48.91 Unspecified atrial fibrillation G40.909 Epilepsy, unsp, not intractable, without status epilepticus I73.9 Peripheral vascular disease, unspecified J44.9 Chronic obstructive pulmonary disease, unspecified Office Visit 02/21/2019 [facility] L03.115 Cellulitis of 10:32a Assoc,tal Wheeler NP right lower limb Hospitalists E72.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, unspecified B37.0 Candidal stomatitis F99 Mental disorder, not otherwise specified I48.91 Unspecified atrial fibrillation F10.10 Alcohol abuse, uncomplicated I25.10 Athscl heart disease of [place] coronary artery w/o ang pctrs J44.9 Chronic obstructive pulmonary disease, unspecified I10 Essential (primary) hypertension I73.9 Peripheral vascular disease, unspecified G40.909 Epilepsy, unsp, not intractable, without status epilepticus Office Visit 02/20/2019 [facility] L03.115 Cellulitis of 10:31a Assoc,pc Liam, [employer] right lower limb Hospitalists E72.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, unspecified B37.0 Candidal stomatitis F99 Mental disorder, not otherwise specified I48.91 Unspecified atrial fibrillation F10.10 Alcohol abuse, uncomplicated I25.10 Athscl heart disease of [place] coronary artery w/o ang pctrs J44.9 Chronic obstructive pulmonary disease, unspecified I10 Essential (primary) hypertension G40.909 Epilepsy, unsp, not intractable, without status epilepticus Office Visit 02/19/2019 10:31a [facility] Patricia Latesha, L03.115 Cellulitis of Assoc,pc [employer] right lower limb Hospitalists E72.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, unspecified F10.10 Alcohol abuse, uncomplicated B37.0 Candidal stomatitis I10 Essential (primary) hypertension I73.9 Peripheral vascular disease, unspecified I48.91 Unspecified atrial fibrillation I25.10 Athscl heart disease of [place] coronary artery w/o ang pctrs J44.9 Chronic obstructive pulmonary disease, unspecified Office Visit 02/18/2019 [facility] L03.115 Cellulitis of 10:31a Assoc,tal Thomas, PA right lower Hospitalists limb R41.82 Altered mental status, unspecified B37.0 Candidal stomatitis F10.10 Alcohol abuse, uncomplicated E83.42 Hypomagnesemia F17.200 Nicotine dependence, unspecified, uncomplicated J44.9 Chronic obstructive pulmonary disease, unspecified I10 Essential (primary) hypertension I48.91 Unspecified atrial fibrillation I25.10 Athscl heart disease of [place] coronary artery w/o ang pctrs F99 Mental disorder, not otherwise specified Office Visit 01/26/2019 [facility] Kimberly S82.891A Oth fracture 8:58a Assoc,tal Farrell, JEFFREY of right lower Hospitalists leg, init for clos fx I48.91 Unspecified atrial fibrillation F10.10 Alcohol abuse, uncomplicated J44.9 Chronic obstructive pulmonary disease, unspecified G40.909 Epilepsy, unsp, not intractable, without status epilepticus I73.9 Peripheral vascular disease, unspecified Office Visit 01/23/2019 8:56a [facility] S82.891A Oth fracture Assoc,pc Jt Doto, of right lower Hospitalists [employer] leg, init for clos fx I48.91 Unspecified atrial fibrillation I25.10 Athscl heart disease of [place] coronary artery w/o ang pctrs I10 Essential (primary) hypertension J44.9 Chronic obstructive pulmonary disease, unspecified Office Visit 01/22/2019 10:14a [facility] S82.891A Oth fracture Assoc,pc Jt Doto, of right lower Hospitalists [employer] leg, init for clos fx I10 Essential (primary) hypertension R53.83 Other fatigue I48.91 Unspecified atrial fibrillation J44.9 Chronic obstructive pulmonary disease, unspecified Office Visit 01/21/2019 10:13a [facility] S82.891A Oth fracture Assoc,pc Jt Doto, of right lower Hospitalists [employer] leg, init for clos fx R53.83 Other fatigue J44.9 Chronic obstructive pulmonary disease, unspecified I48.91 Unspecified atrial fibrillation G40.909 Epilepsy, unsp, not intractable, without status epilepticus Office Visit 01/20/2019 10:12a [facility] S82.891A Oth fracture Assoc,pc Jt Doto, of right lower Hospitalists [employer] leg, init for clos fx R53.83 Other fatigue Office Visit 01/20/2019 [facility] William S82.841A Displaced 10:11a at Loree Moe M.D. bimalleolar fracture of right lower leg, init [facility] S[facility].841[facility] Displaced 10:11a Assoctal MD bimalleolar Hospitalists fracture of right lower leg, init E87.1 Hypo-osmolality and hyponatremia W19.xxxA Unspecified fall, initial encounter Y92.[address] of occurrence of the external cause Office Visit 12/26/2018 [place] Luis Antonio F10.20 Alcohol 1:45p Neurologic Radames Phillip dependence, Services Of Evaporator Repairer uncomplicated G40.909 Epilepsy, unsp, not intractable, without status epilepticus Office Visit 12/25/2018 11:00a [place] [facility] Celestina S. I35.0 Nonrheumatic Foster, N.P. aortic (valve) stenosis I48.91 Unspecified atrial fibrillation F17.210 Nicotine dependence, cigarettes, uncomplicated I50.9 Heart failure, unspecified F10.20 Alcohol dependence, uncomplicated Office Visit 12/22/2018 [facility] F10.239 Alcohol 9:41a Asstal garza MD dependence with Hospitalists withdrawal, unspecified J44.9 Chronic obstructive pulmonary disease, unspecified I48.91 Unspecified atrial fibrillation I10 Essential (primary) hypertension E87.1 Hypo-osmolality and hyponatremia I25.10 Athscl heart disease of [place] coronary artery w/o ang pctrs Z72.0 Tobacco use Office Visit 12/21/2018 [facility] F10.239 Alcohol 9:40a Asstal garza MD dependence with Hospitalists withdrawal, unspecified J44.9 Chronic obstructive pulmonary disease, unspecified I48.91 Unspecified atrial fibrillation I25.10 Athscl heart disease of [place] coronary artery w/o ang pctrs Z72.0 Tobacco use I10 Essential (primary) hypertension E87.1 Hypo-osmolality and hyponatremia Office Visit 12/20/2018 11:51a [facility] Shashi Jose I48.2 Chronic atrial Of Samuel Medina M.D., fibrillation FAC, FASAK Z95.2 Presence of prosthetic heart valve F10.120 Alcohol abuse with intoxication, uncomplicated F31.9 Bipolar disorder, unspecified R45.851 Suicidal ideations E86.0 Dehydration Z72.0 Tobacco use I95.9 Hypotension, unspecified Office Visit 12/20/2018 [facility] Karen I48.91 Unspecified atrial 9:40a Assoc,pc WILLY Wilson fibrillation Hospitalists I47.2 Ventricular tachycardia J44.1 Chronic obstructive pulmonary disease w (acute) exacerbation I95.9 Hypotension, unspecified F10.239 Alcohol dependence with withdrawal, unspecified R45.851 Suicidal ideations I25.10 Athscl heart disease of [place] coronary artery w/o ang pctrs E87.1 Hypo-osmolality and hyponatremia Z72.0 Tobacco use I10 Essential (primary) hypertension Office Visit 12/18/2018 9:39a [facility] Airam R45.851 Suicidal Assoc,pc Jt Finley, ideations Hospitalists [employer] I95.9 Hypotension, unspecified F10.20 Alcohol dependence, uncomplicated [...] Chronic Sleep Services Of MD Malathi obstructive Evaporator Repairer pulmonary disease, unspecified J98.4 Other disorders of lung F17.210 Nicotine dependence, cigarettes, uncomplicated Office Visit 11/27/2018 8:46a [facility] William J96.01 Acute respiratory Assoc,tal Bangura M.D. failure with Hospitalists hypoxia J44.1 Chronic obstructive pulmonary disease w (acute) exacerbation I35.0 Nonrheumatic aortic (valve) stenosis Assessments Date Code Description Provider 05/29/2019 J44.9 Chronic obstructive pulmonary Alexandria Kelly NP disease, unspecified 05/29/2019 J98.4 Other disorders of lung Alexandria Kelly NP 05/29/2019 F17.210 Nicotine dependence, cigarettes, Alexandria Kelly NP uncomplicated 04/09/2019 E87.1 Hypo-osmolality and hyponatremia ISAC Romero 04/09/2019 F31.9 Bipolar disorder, unspecified ISAC Romero 04/09/2019 B37.0 Candidal stomatitis ISAC Romero 04/09/2019 R45.851 Suicidal ideations ISAC Romero 04/08/2019 E87.1 Hypo-osmolality and hyponatremia Kimberly Farrell NP 04/08/2019 R45.851 Suicidal ideations Kimberly Farrell NP 04/08/2019 I95.9 Hypotension, unspecified Kimberly Farrell NP 04/08/2019 F10.10 Alcohol abuse, uncomplicated Kimberly Farrell NP 04/07/2019 E87.1 Hypo-osmolality and hyponatremia Kimberly Farrell NP 04/07/2019 R45.851 Suicidal ideations Kimberly Farrell, [employer] 04/07/2019 F31.9 Bipolar disorder, unspecified Kimberly Farrell, [employer] 03/24/2019 Z95.0 Presence of cardiac pacemaker Rosales Reich M.D. 03/24/2019 F10.10 Alcohol abuse, uncomplicated Jose D Hargrove, N.P. 03/24/2019 Z95.0 Presence of cardiac pacemaker Ica Pacer Schedule 03/24/2019 I48.91 Unspecified atrial fibrillation Jose D Hargrove, N.P. 03/24/2019 I50.9 Heart failure, unspecified Ica Pacer Schedule 03/24/2019 G40.909 Epilepsy, unspecified, not Jose D Delvin, N.P. intractable, without status epilepticus 03/24/2019 I73.9 [...] L03.115 Cellulitis of right lower limb Imani Gaudencioyojana, [employer] 02/21/2019 E72.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, [facility] Gaudencio, [employer] unspecified 02/21/2019 B37.0 Candidal stomatitis [facility] Gaudencio, [employer] 02/21/2019 F99 Mental disorder, not otherwise [facility], [employer] specified 02/21/2019 I48.91 Unspecified atrial fibrillation Imani Gaudencioyojana, [employer] 02/21/2019 F10.10 Alcohol abuse, uncomplicated Imani Shortle, [employer] 02/21/2019 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[facility], [employer]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 02/21/2019 J44.9 Chronic obstructive pulmonary [facility], [employer] disease, unspecified 02/21/2019 I10 Essential (primary) hypertension [facility] Liam, [employer] 02/21/2019 I73.9 Peripheral vascular disease, [facility] Shortle, [employer] unspecified 02/21/2019 G40.909 Epilepsy, unspecified, not Imani Shortle, [employer] intractable, without status epilepticus 02/20/2019 L03.115 Cellulitis of right lower limb Imani Wheeler, [employer] 02/20/2019 E72.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, Imani Wheeler, [employer] unspecified 02/20/2019 B37.0 Candidal stomatitis Imani Shortle, [employer] 02/20/2019 F99 Mental disorder, not otherwise Imani Wheeler, [employer] specified 02/20/2019 I48.91 Unspecified atrial fibrillation Imani Shortle, [employer] 02/20/2019 F10.10 Alcohol abuse, uncomplicated Imani Shortle, [employer] 02/20/2019 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Imani Wheeler, [employer]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 02/20/2019 J44.9 Chronic obstructive pulmonary Imani Wheeler, [employer] disease, unspecified 02/20/2019 I10 Essential (primary) hypertension Imani Shortle, [employer] 02/20/2019 G40.909 Epilepsy, unspecified, not Imani Shortle, [employer] intractable, without status epilepticus 02/19/2019 L03.115 Cellulitis of right lower limb Lulu Elliott PA 02/19/2019 L03.115 Cellulitis of right lower limb Patricia Latesha, [employer] 02/19/2019 L97.519 Non-pressure chronic ulcer of other ISAC Salgado part of right foot with unspecified severity 02/19/2019 E72.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, Patricia Latesha, [employer] unspecified 02/19/2019 S82.841D Displaced bimalleolar fracture of Lulu ISAC Elliott right lower leg, subsequent encounter for closed fracture with routine healing 02/19/2019 F10.10 Alcohol abuse, uncomplicated Patricia Latesha, [employer] 02/19/2019 B37.0 Candidal stomatitis Patricia Latesha, [employer] 02/19/2019 I10 Essential (primary) hypertension Patricia Latesha, [employer] 02/19/2019 I73.9 Peripheral vascular disease, Patricia Latesha, [employer] unspecified 02/19/2019 I48.91 Unspecified atrial fibrillation Patricia Latesha, [employer] 02/19/2019 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Patriciakassie Charlton NP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 02/19/2019 J44.9 Chronic obstructive pulmonary Patricia Wesleyulx, [employer] disease, unspecified 02/18/2019 L03.115 Cellulitis of right [...] 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ISAC Mccoy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 02/18/2019 F99 Mental disorder, not otherwise ISAC Mccoy specified 02/04/2019 S82.891A Other fracture of right lower leg, William Moe M.D. initial encounter for isaiah 01/26/2019 S82.891A Other fracture of right lower leg, Kimberly Farrell NP initial encounter for isaiah 01/26/2019 I48.91 Unspecified atrial fibrillation Kimberly Farrell NP 01/26/2019 F10.10 Alcohol abuse, uncomplicated Kimberly Farrell NP 01/26/2019 J44.9 Chronic obstructive pulmonary Kimberly Farrell NP disease, unspecified 01/26/2019 G40.909 Epilepsy, unspecified, not Kimberly Farrell NP intractable, without status epilepticus 01/26/2019 I73.9 Peripheral vascular disease, Kimberly Farrell NP unspecified 01/23/2019 S82.891A Other fracture of right lower leg, Airam Finley NP initial encounter for isaiah 01/23/2019 I48.91 Unspecified atrial fibrillation Airam Finley [employer] 01/23/2019 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Airam Finley, [employer]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 01/23/2019 I10 Essential (primary) hypertension Airam Waters Doto, [employer]ER 01/23/2019 J44.9 Chronic obstructive pulmonary Airam Waters Doto, [employer] disease, unspecified 01/22/2019 S82.891A Other fracture of right lower leg, Airam Waters Doto , [employer] initial encounter for isaiah 01/22/2019 I10 Essential (primary) hypertension Airam Waters Doto, [employer] 01/22/2019 R53.83 Other fatigue Airam Waters Doto, [employer] 01/22/2019 I48.91 Unspecified atrial fibrillation Airam Waters Doto, [employer] 01/22/2019 J44.9 Chronic obstructive pulmonary Airam Waters Doto, [employer] disease, unspecified 01/21/2019 Z47.89 Encounter for other orthopedic ISAC Salgado aftercare 01/21/2019 S82.891A Other fracture of right lower leg, Airam Waters Doto , [employer] initial encounter for isaiah 01/21/2019 R53.83 Other fatigue Airam Waters Doto, [employer] 01/21/2019 J44.9 Chronic obstructive pulmonary Airam Waters Doto, [employer] disease, unspecified 01/21/2019 I48.91 Unspecified atrial fibrillation Airam Waters Doto, [employer] 01/21/2019 G40.909 Epilepsy, unspecified, not Airam Jt Doto, [employer] intractable, without status epile 01/20/2019 S82.841A Displaced bimalleolar fracture of Faiza William, RPA-C right lower leg, initial encounter for closed fracture 01/20/2019 S82.891A Other fracture of right lower leg, Airam Becerrafield Doto , [employer] initial encounter for isaiah 01/20/2019 R53.83 Other fatigue Airam Waters Doto, [employer] 01/20/2019 S82.841A Displaced bimalleolar fracture of William [...] 12/25/2018 I35.0 Nonrheumatic aortic (valve) stenosis Celestina S. Grady, N.P. 12/25/2018 I45.10 Unspecified right bundle-branch Rosales Reich M.D. block 12/25/2018 I48.91 Unspecified atrial fibrillation Celestina S. Grady, N.P. 12/25/2018 R94.31 Abnormal electrocardiogram [ECG] Rosales Reich M.D. [EKG] 12/25/2018 F17.210 Nicotine dependence, cigarettes, Celestina S. Foster, N.P. uncomplicated 12/25/2018 I50.9 Heart failure, unspecified Celestina S. Foster, N.P. 12/25/2018 F10.20 Alcohol dependence, uncomplicated Celestina S. Grady, N.P. 12/22/2018 F10.239 Alcohol dependence with withdrawal, Lucy Moore MD unspecified 12/22/2018 J44.9 Chronic obstructive pulmonary Lucy Moore MD disease, unspecified 12/22/2018 I48.91 Unspecified atrial fibrillation Lucy Moore MD 12/22/2018 I10 Essential (primary) hypertension Lucy Moore MD 12/22/2018 E87.1 Hypo-osmolality and hyponatremia Lucy Moore MD 12/22/2018 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Lucy Moore MD [place] coronary artery with 12/22/2018 Z72.0 Tobacco use Lucy Moore MD 12/21/2018 F10.239 Alcohol dependence with withdrawal, Lucy Moore MD unspecified 12/21/2018 J44.9 Chronic obstructive pulmonary Lucy Moore MD disease, unspecified 12/21/2018 I48.91 Unspecified atrial fibrillation Lucy Moore MD 12/21/2018 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Lucy Moore MD [place] coronary artery with 12/21/2018 Z72.0 Tobacco use Lucy Moore MD 12/21/2018 I10 Essential (primary) hypertension Lucy Moore MD 12/21/2018 E87.1 Hypo-osmolality and hyponatremia Lucy Moore MD 12/20/2018 I48.91 Unspecified atrial fibrillation SANDIP BustosC 12/20/2018 I47.2 Ventricular tachycardia SANDIP BustosC 12/20/2018 J44.1 Chronic obstructive pulmonary Karen Wilson PA-C disease with (acute) exacerbat 12/20/2018 I95.9 Hypotension, unspecified ISAC Bustos-C 12/20/2018 F10.239 Alcohol dependence with withdrawal, SANDIP BustosC unspecified 12/20/2018 R45.851 Suicidal ideations ISAC Bustos-C 12/20/2018 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Karen Wilson PA-C [place] coronary artery with 12/20/2018 E87.1 Hypo-osmolality and hyponatremia ISAC Bustos-C 12/20/2018 Z72.0 Tobacco use SANDIP BustosC 12/20/2018 I10 Essential (primary) hypertension SANDIP BustosC 12/20/2018 I48.2 Chronic atrial fibrillation Shashi Medina M.D., [facility], [facility] 12/20/2018 Z95.2 Presence of prosthetic heart valve Shashi Medina M.D., [facility], [facility] 12/20/2018 F10.120 Alcohol abuse with intoxication, Shashi Medina M.D., [facility], uncomplicated [facility] 12/20/2018 F31.9 Bipolar disorder, unspecified Shashi Medina M.D., [facility], [facility] 12/20/2018 R45.851 Suicidal ideations Shashi Medina M.D., [facility], [facility] 12/20/2018 E86.0 Dehydration Shashi Medina M.D., [facility], [facility] 12/20/2018 Z72.0 Tobacco use Shashi Medina M.D., [facility], [facility] 12/20/2018 I95.9 Hypotension, unspecified Shashi Medina M.D., [facility], [facility] 12/19/2018 I95.9 Hypotension, unspecified Karen Wilson PA-C 12/19/2018 I48.91 Unspecified atrial fibrillation Karen Wilson PA-C 12/19/2018 F10.239 Alcohol dependence with withdrawal, Karen Wilson PA-C unspecified 12/19/2018 J44.9 Chronic obstructive pulmonary Karen Wilson PA-C disease, unspecified 12/19/2018 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Karen Wlison PA-C [place] coronary artery with 12/19/2018 E87.1 Hypo-osmolality and hyponatremia Karen Wilson PA-C 12/19/2018 I10 Essential (primary) hypertension Karen Wilson PA-C 12/18/2018 R94.31 Abnormal electrocardiogram [ECG] Pablo Mora MD, [facility], [EKG] [facility] 12/18/2018 R45.851 Suicidal ideations Airam Finley, [employer] 12/18/2018 I95.9 Hypotension, unspecified Airam Finley, [employer] 12/18/2018 F10.20 Alcohol dependence, uncomplicated Airam Finley NP 12/18/2018 Z86.79 Personal history of other diseases Airam Finley NP of the circulatory system 12/18/2018 Z87.09 Personal history of other diseases Airam Finley NP of the respiratory system 12/18/2018 Z86.69 Personal history of dis of the Airamdelma Finley NP nervous sys and sense organs 12/18/2018 Z95.0 Presence of cardiac pacemaker Airam Finley NP 12/18/2018 Z95.2 Presence of prosthetic heart valve Airam Finley NP 12/18/2018 F17.200 Nicotine dependence, unspecified, Airam Finley NP uncomplicated 12/18/2018 J44.9 Chronic obstructive pulmonary Airam [...] Nonrheumatic aortic (valve) stenosis William Bangura M.D. Plan of Treatment Future Appointment(s):07/11/2019 11:00 am - Alexandria Kelly NP at [facility]12/18/2019 1:30 pm - Alexandria Kelly NP at [facility]06/03/2019 1:40 pm - Rosales Reich M.D. at [place] [facility]/06/2019 12:15 pm - Benji Stevens LCSW at [facility] 10:[facility] am - Luis Antonio Phillip M.D. at [place] [facility]05/29/2019 - Alexandria Kelly NPJ44.9 Chronic obstructive pulmonary disease, unspecifiedNew Medication:Nebulizer - 1 unit every 4 hours, as neededIpratropium Jay/Albuterol Sulfate 0.5-2.5(3) mg/3ML - 1 unit every 4-6 hours as neededNebulizer Kit/Tubing/Mouthpiece - use every 4 hours as instructedNew Orders:6 Minute Walk, Ordered: 05/29/19PFTW/Spirometry Vol Pre/Post Bronchdilat Dlco Complete, Ordered: 05/29/19J98.4 Other disorders of lungNew Xrays:CT Chest W/O, Ordered: 05/29/19Follow up:1 azypnU91.210 Nicotine dependence, cigarettes, uncomplicatedNew Medication:Nicotine 14 mg/ 24HR - 1 patch on skin every day Functional Status Description No Information Available Mental Status Description No Information Available Referrals Refer to Reason for Referral Status Appt Date Benji Stevens LCSW ETOH abuse Sent 04/04/2019 [address], [address] [place] [address] [phone]
--- OUTSIDE RECORDS SUMMARY | 2019-06-27 15:49 | XMS REPORT | Continuity of Care Document ---
:1955 External Reference #:[id number] Author Name Tereso Canales Care Team Providers Name Role Phone Genaro Valenzuela MD - Care Team Information Workers Compensation Adjuster [phone] Ophthalmology Clifford Ventura DPM - Foot Surgery Care Team Information Workers Compensation Adjuster Vipul Grant MD - Neurology Care Team Information Workers Compensation Adjuster John Fountain MD - Internal Care Team Information Workers Compensation Adjuster Medicine Ne Mckeon MD - Psychiatry Care Team Information Workers Compensation Adjuster Colten Vargas III, MD - Internal Care Team Information Workers Compensation Adjuster Medicine Jonathan An M.D. - Care Team Information Workers Compensation Adjuster [phone] Gastroenterology Problems Active Problems Provider Date Epilepsy [...] Regulo Moreno M.D. Onset: 06/13/2018 Seizure Kimberly Farrell, JEFFREY Onset: 06/11/2018 Feeling suicidal Kimberly Farrell NP [...] unit every 4-6 540ml J44.9 Alexandria 05/29/2019 [place]/Albuterol hours as needed JEFFREY Kelly Sulfate 0.5-2.5(3)mg/3ML [...] One 30units Nasreen Servin, 08/14/2017 Inhalation Every MD 62.5mcg/Inh Aerosol Day Breo Ellipta 1 puff inhaled 60units [facility] 03/30/2015 daily JEFFREY Kelly 100-25mcg/Inh Aerosol Cilostazol 2 tabs by mouth Unknown 100mg once daily Tablets Fluticasone as needed Casandra Michelle Propionate A, N.P. 50mcg/Act Suspension Acetaminophen ER 1 by mouth twice Unknown 650mg a day Tablets ER Aripiprazole 1 by mouth every Unknown 5mg day Tablets Aspirin chew one tablet Unknown 81mg Chewtabs by mouth every day Divalproex Sodium Unknown 500mg Tablets Thiamine HCL 1 by mouth every Unknown 100mg day Tablets Brianasomra Debbie, 20mg Tablets Louie Rios MD Oxycodone-Acetaminoph Debbie, en Louie Rios MD 7.5-325mg Tablets History Medications Methylprednisolone 4mg Unknown 12/24/2018 - 2018 Tablets Medications Administered in Office Medication SIG Qnty Indications Ordering Provider Date Inj, Regadenoson, 0.1 MG Simone Barboza, DO [facility] 04/14/2015 Injection Inj, Regadenoson, 0.1 MG Rosales Reich M.D. 04/14/2015 Injection Technetium TC 99M Simone Barboza, DO [facility] 04/14/2015 Tetrofosmin, Per Unit Dose Up To 40 Millicuries Injection Technetium TC 99M Rosales Reich M.D. 04/14/2015 Tetrofosmin, Per Unit Dose Up To 40 Millicuries Injection Influenza Virus Vaccine Unknown 04/15/2014 Injection Immunizations CPT Code Status Date Vaccine Lot # [id number] Given 05/05/2014 Pneumococcal Conjugate Vaccine 13 Valent For [id number] Intramuscular Use Q2038 Given 03/25/2012 Fluzone Vaccine [id number] Vital Signs Date Vital Result Comment 05/29/2019 [...] Available Procedures Date Code Description Status 03/24/2019 69381 Pace Maker Eval W/Iterative Adjment Dual Lead Completed 03/24/2019 70134 Pace Maker Eval W/Iterative Adjment Dual Lead Completed 02/04/2019 29168 Walking Cast Completed 01/20/2019 75062 ORIF Open TX Bimalleolar Ankle FX Includes Internal Completed Fixation 01/20/2019 00019 ORIF Open TX Bimalleolar Ankle FX Includes Internal Completed Fixation 01/10/2019 79631 EKG Tracing & Interpretation Completed 01/10/2019 56802 EKG Tracing & Interpretation Completed 12/25/2018 45222 EKG Tracing & Interpretation Completed 12/18/2018 56978 EKG, Interpretation Only Completed 07/09/2004 [id number] Colonoscopy Completed Medical Devices Description No Information Available Encounters Type Date Location Provider Dx Diagnosis Office Visit 04/09/2019 [facility] Ivan Sanabria, E87.1 Hypo- osmolality and 12:27p Assoc,pc ISAC hyponatremia Hospitalists F31.9 Bipolar disorder, unspecified B37.0 Candidal stomatitis R45.851 Suicidal ideations Office Visit 04/08/2019 [facility] E87.1 Hypo-osmolality and 12:26p Assoc,tal Farrell NP hyponatremia Hospitalists R45.851 Suicidal ideations I95.9 Hypotension, unspecified F10.10 Alcohol abuse, uncomplicated Office Visit 04/07/2019 [facility] E87.1 Hypo-osmolality and 12:25p Assoc,tal Farrell PROJECT MANAGER/DESIGN MANAGER hyponatremia Hospitalists R45.851 Suicidal ideations F31.9 Bipolar disorder, unspecified Office Visit 03/24/2019 [place] Jose D F10.10 Alcohol abuse, 2:00p Neurologic Hargrove, N.P. uncomplicated [facility] I48.91 Unspecified atrial fibrillation G40.909 Epilepsy, unsp, not intractable, without status epilepticus I73.9 Peripheral vascular disease, unspecified J44.9 Chronic obstructive pulmonary disease, unspecified Office Visit 02/21/2019 [facility] L03.115 Cellulitis of 10:32a Assoc,tal Wheeler NP right lower limb Hospitalists E72.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, unspecified B37.0 Candidal stomatitis F99 Mental disorder, not otherwise specified I48.91 Unspecified atrial fibrillation F10.10 Alcohol abuse, uncomplicated 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 J44.9 Chronic obstructive pulmonary disease, unspecified I10 Essential (primary) hypertension I73.9 Peripheral vascular disease, unspecified G40.909 Epilepsy, unsp, not intractable, without status epilepticus Office Visit 02/20/2019 [facility] L03.115 Cellulitis of 10:31a Assoc,tal Wheeler, PROJECT MANAGER/DESIGN MANAGER right lower limb Hospitalists E72.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, unspecified B37.0 Candidal stomatitis F99 Mental disorder, not otherwise specified I48.91 Unspecified atrial fibrillation F10.10 Alcohol abuse, uncomplicated 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 J44.9 Chronic obstructive pulmonary disease, unspecified I10 Essential (primary) hypertension G40.909 Epilepsy, unsp, not intractable, without status epilepticus Office Visit 02/19/2019 10:31a [facility] Patricia Latesha, L03.115 Cellulitis of Assoc,pc PROJECT MANAGER/DESIGN MANAGER right lower limb Hospitalists E72.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, unspecified F10.10 Alcohol abuse, uncomplicated B37.0 Candidal stomatitis I10 Essential (primary) hypertension I73.9 Peripheral vascular disease, unspecified I48.91 Unspecified atrial fibrillation 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 J44.9 Chronic obstructive pulmonary disease, unspecified [facility] Cellulitis of 10:31a Assoc,pc William, [place] right lower Hospitalists limb R41.82 Altered mental status, unspecified B37.0 Candidal stomatitis F10.10 Alcohol abuse, uncomplicated E83.42 Hypomagnesemia F17.200 Nicotine dependence, unspecified, uncomplicated J44.9 Chronic obstructive pulmonary disease, unspecified I10 Essential (primary) hypertension I48.91 Unspecified atrial fibrillation 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 F99 Mental disorder, not otherwise specified Office Visit 01/26/2019 [facility] Kimberly S82.891A Oth fracture 8:58a Assoc,tal Farrell NP of right lower Hospitalists leg, init for clos fx I48.91 Unspecified atrial fibrillation F10.10 Alcohol abuse, uncomplicated J44.9 Chronic obstructive pulmonary disease, unspecified G40.909 Epilepsy, unsp, not intractable, without status epilepticus I73.9 Peripheral vascular disease, unspecified Office Visit 01/23/2019 8:56a [facility] S82.891A Oth fracture Assoc,pc Jt Doto, of right lower Hospitalists PROJECT MANAGER/DESIGN MANAGER leg, init for clos fx I48.91 Unspecified atrial fibrillation 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 I10 Essential (primary) hypertension J44.9 Chronic obstructive pulmonary disease, unspecified Office Visit 01/22/2019 10:14a [facility] S82.891A Oth fracture Assoc,pc Jt Doto, of right lower Hospitalists PROJECT MANAGER/DESIGN MANAGER leg, init for clos fx I10 Essential (primary) hypertension R53.83 Other fatigue I48.91 Unspecified atrial fibrillation J44.9 Chronic obstructive pulmonary disease, unspecified Office Visit 01/21/2019 10:13a [facility] S82.891A Oth fracture Assoc,pc Jt Doto, of right lower Hospitalists PROJECT MANAGER/DESIGN MANAGER leg, init for clos fx R53.83 Other fatigue J44.9 Chronic obstructive pulmonary disease, unspecified I48.91 Unspecified atrial fibrillation G40.909 Epilepsy, unsp, not intractable, without status epilepticus Office Visit 01/20/2019 10:12a [facility] S82.891A Oth fracture Assoc, Jt Doto, of right lower Hospitalists PROJECT MANAGER/DESIGN MANAGER leg, init for clos fx R53.83 Other fatigue Office Visit 01/20/2019 [facility] William S82.841A Displaced 10:11a at Loree Moe M.D. bimalleolar fracture of right lower leg, init [facility] 10:11a Assoc,tal Gamboa MD bimalleolar Hospitalists fracture of right lower leg, init E87.1 Hypo-osmolality and hyponatremia W19.xxxA Unspecified fall, initial encounter Y92.[address] of occurrence of the external cause Office Visit 12/26/2018 [place] Luis Antonio F10.20 Alcohol 1:45p Neurologic Mar Phillip. dependence, [facility] uncomplicated G40.909 Epilepsy, unsp, not intractable, without status epilepticus Office Visit 12/25/2018 11:00a [place] [facility] Celestina SBriseida I35.0 Nonrheumatic Foster, N.P. 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 Z72.0 Tobacco use Office Visit 12/21/2018 [facility] F10.239 Alcohol 9:40a Assoc,tal Moore MD dependence with Hospitalists withdrawal, unspecified J44.9 Chronic obstructive pulmonary disease, unspecified I48.91 Unspecified atrial fibrillation 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 Z72.0 Tobacco use I10 Essential (primary) hypertension E87.1 Hypo-osmolality and hyponatremia Office Visit 12/20/2018 11:51a [facility] Shashi Garcia I48.2 Chronic atrial Of Samuel Medina M.D., fibrillation FACC, FASNY Z95.2 Presence of prosthetic heart valve F10.120 Alcohol abuse with intoxication, uncomplicated F31.9 Bipolar disorder, unspecified R45.851 Suicidal ideations E86.0 Dehydration Z72.0 Tobacco use I95.9 Hypotension, unspecified Office Visit 12/20/2018 [facility] Karen I48.91 Unspecified atrial 9:40a Assoc,tal Wilson PA-C fibrillation Hospitalists I47.2 Ventricular tachycardia J44.1 Chronic obstructive pulmonary disease w (acute) exacerbation I95.9 Hypotension, unspecified F10.239 Alcohol dependence with withdrawal, unspecified R45.851 Suicidal ideations 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 E87.1 Hypo-osmolality and hyponatremia Z72.0 Tobacco use I10 Essential (primary) hypertension Office Visit 12/18/2018 9:39a [facility] Airam R45.851 Suicidal Assoc,tal Finley, ideations Hospitalists PROJECT MANAGER/DESIGN MANAGER I95.9 Hypotension, unspecified F10.20 Alcohol dependence, uncomplicated [...] Chronic Sleep [facility] Of [facility] Malathi obstructive Can Bander Operator pulmonary disease, unspecified J98.4 Other disorders of lung F17.210 Nicotine dependence, cigarettes, uncomplicated Assessments Date Code Description Provider 05/29/2019 J44.9 Chronic obstructive pulmonary Alexandria Kelly NP disease, unspecified 05/29/2019 J98.4 Other disorders of lung Alexandria Kelly, JEFFREY 05/29/2019 F17.210 Nicotine dependence, cigarettes, Alexandria Kelly NP uncomplicated 04/09/2019 E87.1 Hypo-osmolality and hyponatremia ISAC Romero 04/09/2019 F31.9 Bipolar disorder, unspecified ISAC Romero 04/09/2019 B37.0 Candidal stomatitis ISAC Romero 04/09/2019 R45.851 Suicidal ideations ISAC Romero 04/08/2019 E87.1 Hypo-osmolality and hyponatremia Kimberly Bud, PROJECT MANAGER/DESIGN MANAGER 04/08/2019 R45.851 Suicidal ideations Kimberly Farrell, PROJECT MANAGER/DESIGN MANAGER 04/08/2019 I95.9 Hypotension, unspecified Kimberly Bud, PROJECT MANAGER/DESIGN MANAGER 04/08/2019 F10.10 Alcohol abuse, uncomplicated Kimbrely Farrell, PROJECT MANAGER/DESIGN MANAGER 04/07/2019 E87.1 Hypo-osmolality and hyponatremia Kimberly Maderackney, PROJECT MANAGER/DESIGN MANAGER 04/07/2019 R45.851 Suicidal ideations Kimberly Bessemer, PROJECT MANAGER/DESIGN MANAGER 04/07/2019 F31.9 Bipolar disorder, unspecified Kimberly Bud, PROJECT MANAGER/DESIGN MANAGER 03/24/2019 Z95.0 Presence of cardiac pacemaker Rosales Reich M.D. 03/24/2019 F10.10 Alcohol abuse, uncomplicated Jose D Hargrove N.P. 03/24/2019 Z95.0 Presence of cardiac pacemaker Ica Pacer Schedule 03/24/2019 I48.91 Unspecified atrial fibrillation Jose D Hagrrove, N.P. 03/24/2019 I50.9 Heart failure, unspecified Ica Pacer Schedule 03/24/2019 G40.909 Epilepsy, unspecified, not Jose D Hargrove, N.P. intractable, without status epilepticus 03/24/2019 [...] 02/21/2019 L03.115 Cellulitis of right lower limb [facility] Short, PROJECT MANAGER/DESIGN MANAGER 02/21/2019 E72.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, [facility] Shortle, PROJECT MANAGER/DESIGN MANAGER unspecified 02/21/2019 B37.0 Candidal stomatitis [facility] Shortle, PROJECT MANAGER/DESIGN MANAGER 02/21/2019 F99 Mental disorder, not otherwise [facility] Short, PROJECT MANAGER/DESIGN MANAGER specified 02/21/2019 I48.91 Unspecified atrial fibrillation [facility] Shortle, PROJECT MANAGER/DESIGN MANAGER 02/21/2019 F10.10 Alcohol abuse, uncomplicated [facility] Shortle, PROJECT MANAGER/DESIGN MANAGER 02/21/2019 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[facility], PROJECT MANAGER/DESIGN MANAGER ambler coronary artery without angina pectoris 02/21/2019 J44.9 Chronic obstructive pulmonary [facility] Shortle, PROJECT MANAGER/DESIGN MANAGER disease, unspecified 02/21/2019 I10 Essential (primary) hypertension [facility] Shortle, PROJECT MANAGER/DESIGN MANAGER 02/21/2019 I73.9 Peripheral vascular disease, [facility] Short, PROJECT MANAGER/DESIGN MANAGER unspecified 02/21/2019 G40.909 Epilepsy, unspecified, not [facility] Shortle, PROJECT MANAGER/DESIGN MANAGER intractable, without status epilepticus 02/20/2019 L03.115 Cellulitis of right lower limb Imani Shortle, PROJECT MANAGER/DESIGN MANAGER 02/20/2019 E72.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, [facility] Shortle, PROJECT MANAGER/DESIGN MANAGER unspecified 02/20/2019 B37.0 Candidal stomatitis [facility] Shortle, PROJECT MANAGER/DESIGN MANAGER 02/20/2019 F99 Mental disorder, not otherwise Imani Shortle, PROJECT MANAGER/DESIGN MANAGER specified 02/20/2019 I48.91 Unspecified atrial fibrillation Imani Shortle, PROJECT MANAGER/DESIGN MANAGER 02/20/2019 F10.10 Alcohol abuse, uncomplicated Imani Shortle, PROJECT MANAGER/DESIGN MANAGER 02/20/2019 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Imani Wheeler, PROJECT MANAGER/DESIGN MANAGER ambler coronary artery without angina pectoris 02/20/2019 J44.9 Chronic obstructive pulmonary Imani Shortle, PROJECT MANAGER/DESIGN MANAGER disease, unspecified 02/20/2019 I10 Essential (primary) hypertension Imani Shortle, PROJECT MANAGER/DESIGN MANAGER 02/20/2019 G40.909 Epilepsy, unspecified, not Imani Shortle, PROJECT MANAGER/DESIGN MANAGER intractable, without status epilepticus 02/19/2019 L03.115 Cellulitis of right lower limb Lulu Elliott PA 02/19/2019 L03.115 Cellulitis of right lower limb Patricia Latesha, PROJECT MANAGER/DESIGN MANAGER 02/19/2019 L97.519 Non-pressure chronic ulcer of other ISAC Salgado part of right foot with unspecified severity 02/19/2019 E72.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, Patricia Latesha, PROJECT MANAGER/DESIGN MANAGER unspecified 02/19/2019 S82.841D Displaced bimalleolar fracture of ISAC Salgado right lower leg, subsequent encounter for closed fracture with routine healing 02/19/2019 F10.10 Alcohol abuse, uncomplicated Patricia Latesha, PROJECT MANAGER/DESIGN MANAGER 02/19/2019 B37.0 Candidal stomatitis Patricia Latesha, PROJECT MANAGER/DESIGN MANAGER 02/19/2019 I10 Essential (primary) hypertension Patricia Latesha, PROJECT MANAGER/DESIGN MANAGER 02/19/2019 I73.9 Peripheral vascular disease, Patricia Latesha, PROJECT MANAGER/DESIGN MANAGER unspecified 02/19/2019 I48.91 Unspecified atrial fibrillation Patricia Latesha, PROJECT MANAGER/DESIGN MANAGER 02/19/2019 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Patricia Latesha, PROJECT MANAGER/DESIGN MANAGER ambler coronary artery without angina pectoris 02/19/2019 J44.9 Chronic obstructive pulmonary Patricia Latesha, PROJECT MANAGER/DESIGN MANAGER disease, unspecified 02/18/2019 L03.115 Cellulitis of right [...] 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ISAC Mccoy ambler coronary artery without angina pectoris 02/18/2019 F99 Mental disorder, not otherwise ISAC Mccoy specified 02/04/2019 S82.891A Other fracture of right lower leg, William Moe M.D. initial encounter for isaiah 01/26/2019 S82.891A Other fracture of right lower leg, Kimberly Farrell NP initial encounter for isaiah 01/26/2019 I48.91 Unspecified atrial fibrillation Kimberly Farrell NP 01/26/2019 F10.10 Alcohol abuse, uncomplicated Kimberlyaspen Farrell NP 01/26/2019 J44.9 Chronic obstructive pulmonary [...] Atherosclerotic heart disease of Airam Finley NP ambler coronary artery without angina pectoris 01/23/2019 I10 Essential (primary) hypertension Airam Finley NP 01/23/2019 J44.9 Chronic obstructive pulmonary Airam Finley NP disease, unspecified 01/22/2019 S82.891A Other fracture of right lower leg, Airam Waters Dotnilsa , PROJECT MANAGER/DESIGN MANAGER initial encounter for isaiah 01/22/2019 I10 Essential (primary) hypertension Airam Waters Tushar, PROJECT MANAGER/DESIGN MANAGER 01/22/2019 R53.83 Other fatigue Airam Waters Doto, PROJECT MANAGER/DESIGN MANAGER 01/22/2019 I48.91 Unspecified atrial fibrillation Airam Becerrafield Doto, PROJECT MANAGER/DESIGN MANAGER 01/22/2019 J44.9 Chronic obstructive pulmonary Airam Waters Tushar, PROJECT MANAGER/DESIGN MANAGER disease, unspecified 01/21/2019 Z47.89 Encounter for other orthopedic ISAC Salgado aftercare 01/21/2019 S82.891A Other fracture of right lower leg, Airam Becerrafield Dotnilsa , PROJECT MANAGER/DESIGN MANAGER initial encounter for isaiah 01/21/2019 R53.83 Other fatigue Airam Waters Doto, PROJECT MANAGER/DESIGN MANAGER 01/21/2019 J44.9 Chronic obstructive pulmonary Airam Becerrafield Finley, PROJECT MANAGER/DESIGN MANAGER disease, unspecified 01/21/2019 I48.91 Unspecified atrial fibrillation Airam Waters Doto, PROJECT MANAGER/DESIGN MANAGER 01/21/2019 G40.909 Epilepsy, unspecified, not Airam Waters Doto, PROJECT MANAGER/DESIGN MANAGER intractable, without status epile 01/20/2019 S82.841A Displaced bimalleolar fracture of Faiza William, NELLA-C right lower leg, initial encounter for closed fracture 01/20/2019 S82.891A Other fracture of right lower leg, Airam Becerrafield Finley , PROJECT MANAGER/DESIGN MANAGER initial encounter for isaiah 01/20/2019 R53.83 Other fatigue Airam Waters Tushar, PROJECT MANAGER/DESIGN MANAGER 01/20/2019 S82.841A Displaced bimalleolar fracture of William [...] 12/25/2018 I35.0 Nonrheumatic aortic (valve) stenosis Celestina SBriseida Rasmussen, N.P. 12/25/2018 I45.10 Unspecified right bundle-branch Rosales Reich M.D. block 12/25/2018 I48.91 Unspecified atrial fibrillation Celestina S. Grady, N.P. 12/25/2018 R94.31 Abnormal electrocardiogram [ECG] Rosales Reich M.D. [EKG] 12/25/2018 F17.210 Nicotine dependence, cigarettes, Celestina S. Foster, N.P. uncomplicated 12/25/2018 I50.9 Heart failure, unspecified Celestina S. Foster, N.P. 12/25/2018 F10.20 Alcohol dependence, uncomplicated Celestina S. Foster, N.P. 12/22/2018 F10.239 Alcohol dependence with withdrawal, Lucy Moore MD unspecified 12/22/2018 J44.9 Chronic obstructive pulmonary Lucy Moore MD disease, unspecified 12/22/2018 I48.91 Unspecified atrial fibrillation Lucy Moore MD 12/22/2018 I10 Essential (primary) hypertension Lucy Moore MD 12/22/2018 E87.1 Hypo-osmolality and hyponatremia Lucy Moore MD 12/22/2018 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Lucy Moore MD ambler coronary artery with 12/22/2018 Z72.0 Tobacco use Lucy Moore MD 12/21/2018 F10.239 Alcohol dependence with withdrawal, Lucy Moore MD unspecified 12/21/2018 J44.9 Chronic obstructive pulmonary Lucy Moore MD disease, unspecified 12/21/2018 I48.91 Unspecified atrial fibrillation Lucy Moore MD 12/21/2018 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Lucy Moore MD ambler coronary artery with 12/21/2018 Z72.0 Tobacco use Lucy Moore MD 12/21/2018 I10 Essential (primary) hypertension Lucy Moore MD 12/21/2018 E87.1 Hypo-osmolality and hyponatremia Lucy Moore MD 12/20/2018 I48.91 Unspecified atrial fibrillation Karen Wilson PA-C 12/20/2018 I47.2 Ventricular tachycardia Karen Wilson PA-C 12/20/2018 J44.1 Chronic obstructive pulmonary Karen Wilson PA-C disease with (acute) exacerbat 12/20/2018 I95.9 Hypotension, unspecified Karen Nilsa'kelly, PA-C 12/20/2018 F10.239 Alcohol dependence with withdrawal, Karen Wilson PA-C unspecified 12/20/2018 R45.851 Suicidal ideations Karen Wilson PA-C 12/20/2018 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Karen Wilson PAAbrahamC ambler coronary artery with 12/20/2018 E87.1 Hypo-osmolality and hyponatremia Karen Wilson PA-C 12/20/2018 Z72.0 Tobacco use Karen Moodye, PA-C 12/20/2018 I10 Essential (primary) hypertension Karen Wilson, PA-C 12/20/2018 I48.2 Chronic atrial fibrillation Shashi Medina M.D., [facility], [facility] 12/20/2018 Z95.2 Presence of prosthetic heart valve Shashi Medina M.D., [facility], [facility] 12/20/2018 F10.120 Alcohol abuse with intoxication, Shashi Medina M.D., [facility], uncomplicated [facility] 12/20/2018 F31.9 Bipolar disorder, unspecified Shashi Medina M.D., [facility], [facility] 12/20/2018 R45.851 Suicidal ideations Shashi Medina M.D., [facility], [facility] 12/20/2018 E86.0 Dehydration Shashi Medina M.D., [facility], [facility] 12/20/2018 Z72.0 Tobacco use Shashi Medina M.D., [facility], [facility] 12/20/2018 I95.9 Hypotension, unspecified Shashi Medina M.D., [facility], [facility] 12/19/2018 I95.9 Hypotension, unspecified ISAC Bustos-C 12/19/2018 I48.91 Unspecified atrial fibrillation ISAC Bustos-C 12/19/2018 F10.239 Alcohol dependence with withdrawal, ISAC Bustos-C unspecified 12/19/2018 J44.9 Chronic obstructive pulmonary SANDIP BustosC disease, unspecified 12/19/2018 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SANDIP BustosC ambler coronary artery with 12/19/2018 E87.1 Hypo-osmolality and hyponatremia Karen Wilson PA-C 12/19/2018 I10 Essential (primary) hypertension Karen Wilson PA-C 12/18/2018 R94.31 Abnormal electrocardiogram [ECG] Pablo Mora MD, [facility], [EKG] [facility] 12/18/2018 R45.851 Suicidal ideations Airam Finley, JEFFREY 12/18/2018 I95.9 Hypotension, unspecified Airam Finley, PROJECT MANAGER/DESIGN MANAGER 12/18/2018 F10.20 Alcohol dependence, uncomplicated Airam Finley, PROJECT MANAGER/DESIGN MANAGER 12/18/2018 Z86.79 Personal history of other diseases Airam Finley PROJECT MANAGER/DESIGN MANAGER of the circulatory system 12/18/2018 Z87.09 Personal history of other diseases Airam Finley NP of the respiratory system 12/18/2018 Z86.69 Personal history of dis of the Airamdelma Finley, PROJECT MANAGER/DESIGN MANAGER nervous sys and sense organs 12/18/2018 Z95.0 [...] Nicotine dependence, cigarettes, Nasreen Servin MD uncomplicated Plan of Treatment Future Appointment(s):07/11/2019 11:00 am - [place] Kelly NP [facility] [facility]12/18/2019 1:30 pm - Alexandria Kelly NP at [facility]06/13/2019 12:15 pm - Benji Stevens LCSW at [facility] Internal Medicine - [facility]06/17/2019 10:45 am - Luis Antonio Phillip M.D. at [facility]01/10/2019 - Nurse Visit [id number] Essential ( primary) [id number] Chronic atrial fibrillation Functional Status Description No Information Available Mental Status Description No Information Available Referrals Refer to Reason for Referral Status Appt Date Benji Stevens LCSW ETOH abuse Sent 04/04/2019 [address], [place] [address] [phone]
[2019-06-27 16:32] VITALS: BP 175/97
[2019-06-27] MEDS ORDERED: Lidocaine Patch REMOVE* 1 NOTE MISC SCH (21:00)
== END 2019-06-27 16:30 | disposition home or self-care (01) ==
LOC: ED 12:59
DX: S22.32XA Fracture of one rib, left side, initial encounter for closed fracture (principal); W19.XXXA Unspecified fall, initial encounter; Y92.9 Unspecified place or not applicable; E16.2 Hypoglycemia, unspecified; J90 Pleural effusion, not elsewhere classified; I10 Essential (primary) hypertension; Z95.810 Presence of automatic (implantable) cardiac defibrillator; Z95.2 Presence of prosthetic heart valve; Z95.1 Presence of aortocoronary bypass graft; F17.210 Nicotine dependence, cigarettes, uncomplicated
CPT/HCPCS: 36415; 80053; 80320; 85025; 96360; 99283; A9270-GY; G0480